=== PATIENT | male | born 1955 | race Caucasian/White ===

== ENCOUNTER → 2022-10-25 | Outpatient (REF) | payer MEDICARE, MEDICAID, SELFPAY ==
[2022-10-25 09:33] LABS: Absolute Lymphocyte Count 2.12 X10^3/uL (0.83-4.51); Absolute Neutrophil Count 7.6 X10^3/uL (2.0-7.7); Basophil# 0.04 X10^3/uL; Basophil% 0.4 % (0-1); Eosinophil# 0.43 X10^3/uL; Eosinophils% 3.9 % (0-5); Hemoglobin 15.9 g/dL (13.0-16.5); Lymphocyte # 2.12 X10^3/ul (0.83-4.51); Lymphocyte % 19.3 % (19-41); Mean Corp Hgb Conc 32.4 g/dL (32-36); Mean Corpuscular Hgb 31.2 pg (27.0-32.0); Mean Corpuscular Volume 96.1 fL (80-94); Mean Platelet Vol. 10.7 fl (6.2-12.0); Monocyte# 0.77 X10^3/uL; NRBC Flagged by Analyzer 0 % (0-5); Neutrophil # 7.56 X10^3/uL (2.7-7.7); Neutrophil % 68.8 % (47-70); Platelet Count 202 K/mm3 (150-450); RBC Distribution Width CV 13.2 % (11.6-14.6); RBC Distribution Width SD 47.1 fl (35.1-43.9)
== END ==
LOC: OLS.SWAL 05:00
PROVIDERS: Visit Provider Internal Medicine
DX: F20.2 Catatonic schizophrenia (principal)
CPT/HCPCS: 36415; 85025

== ENCOUNTER → 2022-11-08 | Outpatient (REF) | payer MEDICARE, MEDICAID, SELFPAY ==
[2022-11-08 09:56] LABS: Vitamin B12 598 pg/mL (211-911); Vitamin D,25 Hydroxy 65.9 ng/mL
[2022-11-08 09:59] LABS: Absolute Lymphocyte Count 1.41 X10^3/uL (0.83-4.51); Absolute Neutrophil Count 5.2 X10^3/uL (2.0-7.7); Basophil# 0.03 X10^3/uL; Basophil% 0.4 % (0-1); Eosinophil# 0.24 X10^3/uL; Eosinophils% 3.2 % (0-5); Hematocrit 40.5 % (40-54); Hemoglobin 13.4 g/dL (13.0-16.5); Lymphocyte # 1.41 X10^3/ul (0.83-4.51); Lymphocyte % 18.7 % (19-41); Mean Corp Hgb Conc 33.1 g/dL (32-36); Mean Corpuscular Hgb 31.8 pg (27.0-32.0); Mean Corpuscular Volume 96.2 fL (80-94); Mean Platelet Vol. 10.5 fl (6.2-12.0); Monocyte# 0.59 X10^3/uL; Monocyte% 7.8 % (0-10); NRBC Flagged by Analyzer 0 % (0-5); Neutrophil % 68.8 % (47-70); Platelet Count 183 K/mm3 (150-450); Red Blood Count 4.21 M/mm3 (4.6-6.2); White Blood Count 7.6 K/mm3 (4.4-11.0)
[2022-11-08 10:07] LABS: AST(SGOT) 17 U/L (15-37); Alanine Aminotransfer ALT/SGPT 47 U/L (16-61); Albumin, Serum 3.2 g/dL (3.2-5.0); Alkaline Phosphatase 73 U/L (45-117); Anion Gap 8 (5-15); BUN 19 mg/dL (7-18); BUN/Creat Ratio 17.9 RATIO (10-20); Calcium,Total 8.8 mg/dL (8.5-10.1); Chloride 107 mmol/L (98-107); Cholesterol 143 mg/dL (200); Creatinine, Serum 1.06 mg/dL (0.70-1.30); EST Glomerular Filtration Rate 74 mL/min (>60); Est Glom Filt Rate - Afr Amer 90 mL/min (>60); Globulin 3.2 g/dL (2.2-4.2); Glucose 108 mg/dL (74-106); High Density Lipoprotein 32 mg/dL; Magnesium 2.3 mg/dL (1.6-2.6); Protein, Total 6.4 g/dL (6.4-8.2); Sodium Level 140 mmol/L (136-145); Thyroid Stim Hormone (TSH) 3.45 uIU/mL (0.358-3.74); Triglycerides 293 mg/dL; Uric Acid 6.4 mg/dL (3.5-7.2); Very Low Density Lipoprotein 59 mg/dL (5-40)
[2022-11-08 10:18] LABS: Hemoglobin A1c 6.1 % (3.8-5.6)
== END ==
LOC: OLS.SWAL 05:00
PROVIDERS: Visit Provider Internal Medicine
DX: E55.9 Vitamin D deficiency, unspecified (principal); Z79.899 Other long term (current) drug therapy
CPT/HCPCS: 36415; 80053; 80061; 82306; 82607; 83036; 83735; 84443; 84550; 85025

== ENCOUNTER → 2022-11-24 | Outpatient (REF) | payer MEDICARE, MEDICAID, SELFPAY ==
[2022-11-24 08:51] LABS: Hematocrit 42.1 % (40-54); Mean Corp Hgb Conc 33.3 g/dL (32-36); Mean Corpuscular Hgb 31.5 pg (27.0-32.0); Mean Corpuscular Volume 94.8 fL (80-94); Mean Platelet Vol. 10.9 fl (6.2-12.0); Platelet Count 190 K/mm3 (150-450); RBC Distribution Width CV 13.2 % (11.6-14.6); RBC Distribution Width SD 45.8 fl (35.1-43.9); Red Blood Count 4.44 M/mm3 (4.6-6.2); White Blood Count 8.2 K/mm3 (4.4-11.0)
== END ==
LOC: OLS.SWAL 05:00
PROVIDERS: Visit Provider Internal Medicine
DX: Z79.899 Other long term (current) drug therapy (principal)
CPT/HCPCS: 36415; 85027

== ENCOUNTER → 2022-12-01 | Outpatient (REF) | payer MEDICARE, MEDICAID, SELFPAY ==
[2022-12-01 09:37] LABS: Absolute Lymphocyte Count 1.59 X10^3/uL (0.83-4.51); Absolute Neutrophil Count 5.2 X10^3/uL (2.0-7.7); Basophil# 0.03 X10^3/uL; Basophil% 0.4 % (0-1); Eosinophil# 0.14 X10^3/uL; Eosinophils% 1.9 % (0-5); Hematocrit 40.7 % (40-54); Hemoglobin 13.4 g/dL (13.0-16.5); Lymphocyte # 1.59 X10^3/ul (0.83-4.51); Lymphocyte % 21.2 % (19-41); Mean Corp Hgb Conc 32.9 g/dL (32-36); Mean Corpuscular Hgb 31.8 pg (27.0-32.0); Mean Corpuscular Volume 96.4 fL (80-94); Monocyte# 0.48 X10^3/uL; Monocyte% 6.4 % (0-10); NRBC Flagged by Analyzer 0 % (0-5); Neutrophil # 5.17 X10^3/uL (2.7-7.7); POSITIVE COUNT YES; RBC Distribution Width CV 13.4 % (11.6-14.6); RBC Distribution Width SD 47.2 fl (35.1-43.9); Red Blood Count 4.22 M/mm3 (4.6-6.2); White Blood Count 7.5 K/mm3 (4.4-11.0)
[2022-12-01 09:53] LABS: Differential Indicated SCAN CRITERIA MET
[2022-12-01 10:15] LABS: Platelet Estimate SLT DEC (ADEQ)
== END ==
LOC: OLS.SWAL 05:00
PROVIDERS: Visit Provider Internal Medicine
DX: Z79.899 Other long term (current) drug therapy (principal)
CPT/HCPCS: 36415; 85025

== ENCOUNTER → 2022-12-29 | Outpatient (REF) | payer MEDICARE, MEDICAID, SELFPAY ==
[2022-12-29 06:50] LABS: Absolute Neutrophil Count 4.6 X10^3/uL (2.0-7.7); Basophil# 0.06 X10^3/uL; Basophil% 0.8 % (0-1); Eosinophil# 0.18 X10^3/uL; Eosinophils% 2.3 % (0-5); Hematocrit 44.5 % (40-54); Hemoglobin 14.4 g/dL (13.0-16.5); Lymphocyte % 29.3 % (19-41); Mean Corp Hgb Conc 32.4 g/dL (32-36); Mean Corpuscular Hgb 31.6 pg (27.0-32.0); Mean Corpuscular Volume 97.8 fL (80-94); Mean Platelet Vol. 10.7 fl (6.2-12.0); Monocyte% 7.6 % (0-10); NRBC Flagged by Analyzer 0 % (0-5); Neutrophil # 4.64 X10^3/uL (2.7-7.7); Platelet Count 205 K/mm3 (150-450); RBC Distribution Width CV 13.6 % (11.6-14.6); RBC Distribution Width SD 48.3 fl (35.1-43.9); Red Blood Count 4.55 M/mm3 (4.6-6.2); White Blood Count 7.9 K/mm3 (4.4-11.0)
== END ==
LOC: OLS.SWAL 05:00
PROVIDERS: Visit Provider Internal Medicine
DX: Z79.899 Other long term (current) drug therapy (principal)
CPT/HCPCS: 36415; 85025

== ENCOUNTER → 2023-01-26 | Outpatient (REF) | payer MEDICARE, MEDICAID, SELFPAY ==
[2023-01-26 08:33] LABS: Absolute Lymphocyte Count 1.27 X10^3/uL (0.83-4.51); Basophil# 0.03 X10^3/uL; Basophil% 0.4 % (0-1); Eosinophil# 0.15 X10^3/uL; Eosinophils% 2.1 % (0-5); Hemoglobin 13.7 g/dL (13.0-16.5); Lymphocyte # 1.27 X10^3/ul (0.83-4.51); Lymphocyte % 18.1 % (19-41); Mean Corp Hgb Conc 33.4 g/dL (32-36); Mean Corpuscular Hgb 31.9 pg (27.0-32.0); Mean Corpuscular Volume 95.3 fL (80-94); Mean Platelet Vol. 10.5 fl (6.2-12.0); Monocyte# 0.55 X10^3/uL; Monocyte% 7.8 % (0-10); NRBC Flagged by Analyzer 0 % (0-5); Neutrophil # 4.96 X10^3/uL (2.7-7.7); Neutrophil % 70.6 % (47-70); Platelet Count 173 K/mm3 (150-450); RBC Distribution Width CV 13.6 % (11.6-14.6); RBC Distribution Width SD 47.1 fl (35.1-43.9)
== END ==
LOC: OLS.SWAL 05:00
PROVIDERS: Visit Provider Internal Medicine
DX: Z79.899 Other long term (current) drug therapy (principal)
CPT/HCPCS: 36415; 85025

== ENCOUNTER → 2023-02-23 | Outpatient (REF) | payer MEDICARE, MEDICAID, SELFPAY ==
[2023-02-23 07:40] LABS: Absolute Lymphocyte Count 1.86 X10^3/uL (0.83-4.51); Absolute Neutrophil Count 4.5 X10^3/uL (2.0-7.7); Basophil# 0.05 X10^3/uL; Basophil% 0.7 % (0-1); Eosinophil# 0.23 X10^3/uL; Eosinophils% 3.2 % (0-5); Hematocrit 45.2 % (40-54); Hemoglobin 14.6 g/dL (13.0-16.5); Lymphocyte # 1.86 X10^3/ul (0.83-4.51); Lymphocyte % 25.6 % (19-41); Mean Corp Hgb Conc 32.3 g/dL (32-36); Mean Corpuscular Hgb 31.6 pg (27.0-32.0); Mean Corpuscular Volume 97.8 fL (80-94); Mean Platelet Vol. 10.6 fl (6.2-12.0); Monocyte# 0.56 X10^3/uL; Monocyte% 7.7 % (0-10); NRBC Flagged by Analyzer 0 % (0-5); Neutrophil # 4.49 X10^3/uL (2.7-7.7); Neutrophil % 61.7 % (47-70); Platelet Count 186 K/mm3 (150-450); RBC Distribution Width CV 12.9 % (11.6-14.6); RBC Distribution Width SD 45.8 fl (35.1-43.9); Red Blood Count 4.62 M/mm3 (4.6-6.2); White Blood Count 7.3 K/mm3 (4.4-11.0)
[2023-02-23 07:54] LABS: Hemoglobin A1c 6.1 % (3.8-5.6)
== END ==
LOC: OLS.SWAL 05:00
PROVIDERS: Visit Provider Internal Medicine
DX: R73.03 Prediabetes (principal); Z79.899 Other long term (current) drug therapy
CPT/HCPCS: 36415; 83036; 85025

== ENCOUNTER → 2023-03-23 | Outpatient (REF) | payer MEDICARE, MEDICAID, SELFPAY ==
[2023-03-23 07:13] LABS: Absolute Lymphocyte Count 1.85 X10^3/uL (0.83-4.51); Absolute Neutrophil Count 4.2 X10^3/uL (2.0-7.7); Basophil# 0.05 X10^3/uL; Basophil% 0.7 % (0-1); Eosinophil# 0.18 X10^3/uL; Eosinophils% 2.6 % (0-5); Hematocrit 42.1 % (40-54); Hemoglobin 14.2 g/dL (13.0-16.5); Lymphocyte # 1.85 X10^3/ul (0.83-4.51); Lymphocyte % 26.4 % (19-41); Mean Corp Hgb Conc 33.7 g/dL (32-36); Mean Corpuscular Hgb 32.1 pg (27.0-32.0); Mean Corpuscular Volume 95.2 fL (80-94); Mean Platelet Vol. 10.7 fl (6.2-12.0); Monocyte# 0.64 X10^3/uL; Monocyte% 9.1 % (0-10); NRBC Flagged by Analyzer 0 % (0-5); Neutrophil # 4.21 X10^3/uL (2.7-7.7); Neutrophil % 60.1 % (47-70); Platelet Count 180 K/mm3 (150-450); RBC Distribution Width CV 12.8 % (11.6-14.6); RBC Distribution Width SD 44.1 fl (35.1-43.9); Red Blood Count 4.42 M/mm3 (4.6-6.2)
== END ==
LOC: OLS.SWAL 05:00
PROVIDERS: Visit Provider Internal Medicine
DX: F20.2 Catatonic schizophrenia (principal); Z79.899 Other long term (current) drug therapy
CPT/HCPCS: 36415; 85025

== ENCOUNTER → 2023-04-20 | Outpatient (REF) | payer MEDICARE, MEDICAID, SELFPAY ==
[2023-04-20 10:09] LABS: Absolute Lymphocyte Count 1.75 X10^3/uL (0.83-4.51); Absolute Neutrophil Count 4.1 X10^3/uL (2.0-7.7); Basophil# 0.03 X10^3/uL; Basophil% 0.4 % (0-1); Eosinophil# 0.23 X10^3/uL; Eosinophils% 3.4 % (0-5); Hematocrit 43.4 % (40-54); Hemoglobin 14.9 g/dL (13.0-16.5); Lymphocyte # 1.75 X10^3/ul (0.83-4.51); Lymphocyte % 25.9 % (19-41); Mean Corp Hgb Conc 34.3 g/dL (32-36); Mean Corpuscular Hgb 32.5 pg (27.0-32.0); Mean Corpuscular Volume 94.8 fL (80-94); Mean Platelet Vol. 10.8 fl (6.2-12.0); Monocyte# 0.59 X10^3/uL; Monocyte% 8.7 % (0-10); NRBC Flagged by Analyzer 0 % (0-5); Neutrophil # 4.09 X10^3/uL (2.7-7.7); Neutrophil % 60.7 % (47-70); Platelet Count 174 K/mm3 (150-450); Red Blood Count 4.58 M/mm3 (4.6-6.2); White Blood Count 6.8 K/mm3 (4.4-11.0)
== END ==
LOC: OLS.SWAL 05:00
PROVIDERS: Visit Provider Internal Medicine
DX: Z79.899 Other long term (current) drug therapy (principal)
CPT/HCPCS: 36415; 85025

== ENCOUNTER → 2023-05-18 | Outpatient (REF) | payer MEDICARE, MEDICAID, SELFPAY ==
[2023-05-18 09:56] LABS: Absolute Neutrophil Count 4.4 X10^3/uL (2.0-7.7); Basophil# 0.05 X10^3/uL; Basophil% 0.7 % (0-1); Eosinophil# 0.18 X10^3/uL; Eosinophils% 2.5 % (0-5); Hematocrit 44.6 % (40-54); Hemoglobin 14.8 g/dL (13.0-16.5); Lymphocyte % 26.3 % (19-41); Mean Corp Hgb Conc 33.2 g/dL (32-36); Mean Corpuscular Hgb 31.8 pg (27.0-32.0); Mean Corpuscular Volume 95.7 fL (80-94); Mean Platelet Vol. 10.8 fl (6.2-12.0); Monocyte# 0.64 X10^3/uL; Monocyte% 8.9 % (0-10); NRBC Flagged by Analyzer 0 % (0-5); Neutrophil # 4.36 X10^3/uL (2.7-7.7); Neutrophil % 60.4 % (47-70); Platelet Count 165 K/mm3 (150-450); RBC Distribution Width CV 13.2 % (11.6-14.6); RBC Distribution Width SD 46.1 fl (35.1-43.9); Red Blood Count 4.66 M/mm3 (4.6-6.2); White Blood Count 7.2 K/mm3 (4.4-11.0)
== END ==
LOC: OLS.SWAL 05:00
PROVIDERS: Visit Provider Internal Medicine
DX: Z79.899 Other long term (current) drug therapy (principal)
CPT/HCPCS: 36415; 85025

== ENCOUNTER → 2023-06-15 | Outpatient (REF) | payer MEDICARE, MEDICAID, SELFPAY ==
[2023-06-15 09:34] LABS: Absolute Lymphocyte Count 1.77 X10^3/uL (0.83-4.51); Absolute Neutrophil Count 5.3 X10^3/uL (2.0-7.7); Basophil# 0.04 X10^3/uL; Basophil% 0.5 % (0-1); Eosinophil# 0.12 X10^3/uL; Eosinophils% 1.5 % (0-5); Hematocrit 47.2 % (40-54); Hemoglobin 15.7 g/dL (13.0-16.5); Lymphocyte # 1.77 X10^3/ul (0.83-4.51); Lymphocyte % 22.2 % (19-41); Mean Corp Hgb Conc 33.3 g/dL (32-36); Mean Corpuscular Hgb 31.4 pg (27.0-32.0); Mean Corpuscular Volume 94.4 fL (80-94); Mean Platelet Vol. 10.9 fl (6.2-12.0); Monocyte# 0.64 X10^3/uL; NRBC Flagged by Analyzer 0 % (0-5); Neutrophil # 5.32 X10^3/uL (2.7-7.7); Neutrophil % 66.8 % (47-70); Platelet Count 184 K/mm3 (150-450); RBC Distribution Width SD 44.4 fl (35.1-43.9)
== END ==
LOC: OLS.SWAL 04:00
PROVIDERS: PCP Internal Medicine; Referring Provider Internal Medicine; Visit Provider Internal Medicine
DX: Z79.899 Other long term (current) drug therapy (principal)
CPT/HCPCS: 36415; 85025

== ENCOUNTER → 2023-06-19 | Outpatient (REF) | payer MEDICARE, MEDICAID, SELFPAY ==
[2023-06-20 08:30] LABS: Bacteria 0 SEEN /hpf (None Seen); Mucous, Urine 0 SEEN /hpf (<or=2+); Red Blood Cells-Urine 0 SEEN /hpf (0-5); Squamous Epithelial Cells - UA 0 SEEN /hpf (0-5); White Blood Cells 0 SEEN /hpf (0-5)
[2023-06-20 09:09] LABS: Color, Urine Yellow (Yellow); Glucose, Dipstick Normal (Normal); Ketone-Dipstick Negative (Negative); Leukocyte Esterase-Dipstick Negative /ul (Negative); Nitrite-Dipstick Negative (Negative); Occult Blood-Urine Negative /ul (Negative); Protein-Dipstick 15 mg/dl (Negative); Urine Bilirubin Dipstick Negative (Negative); Urine Clarity Clear (Clear); Urine Urobilinogen Normal (Normal)
== END ==
LOC: OLS.SWAL 12:00
PROVIDERS: PCP Internal Medicine; Visit Provider Internal Medicine
DX: I10 Essential (primary) hypertension (principal); E78.5 Hyperlipidemia, unspecified; Z79.899 Other long term (current) drug therapy
CPT/HCPCS: 81001; 87086

== ENCOUNTER → 2023-06-19 | Outpatient (REF) | payer MEDICARE, MEDICAID, SELFPAY ==
[2023-06-19 11:04] LABS: Absolute Lymphocyte Count 1.02 X10^3/uL (0.83-4.51); Absolute Neutrophil Count 4.5 X10^3/uL (2.0-7.7); Basophil# 0.02 X10^3/uL; Basophil% 0.3 % (0-1); Eosinophil# 0.11 X10^3/uL; Eosinophils% 1.8 % (0-5); Hematocrit 41.4 % (40-54); Hemoglobin 13.8 g/dL (13.0-16.5); Lymphocyte # 1.02 X10^3/ul (0.83-4.51); Mean Corp Hgb Conc 33.3 g/dL (32-36); Mean Corpuscular Hgb 31.8 pg (27.0-32.0); Mean Corpuscular Volume 95.4 fL (80-94); Mean Platelet Vol. 11.1 fl (6.2-12.0); Monocyte# 0.31 X10^3/uL; Monocyte% 5.2 % (0-10); NRBC Flagged by Analyzer 0 % (0-5); Neutrophil # 4.52 X10^3/uL (2.7-7.7); Neutrophil % 75.2 % (47-70); Platelet Count 168 K/mm3 (150-450); RBC Distribution Width CV 13.2 % (11.6-14.6); RBC Distribution Width SD 46.4 fl (35.1-43.9); Red Blood Count 4.34 M/mm3 (4.6-6.2)
[2023-06-19 11:22] LABS: AST(SGOT) 38 U/L (15-37); Alanine Aminotransfer ALT/SGPT 74 U/L (16-61); Albumin, Serum 3.3 g/dL (3.2-5.0); Alkaline Phosphatase 81 U/L (45-117); Anion Gap 9 (5-15); BUN 32 mg/dL (7-18); BUN/Creat Ratio 20.3 RATIO (10-20); Calcium,Total 8.7 mg/dL (8.5-10.1); Chloride 107 mmol/L (98-107); Creatinine, Serum 1.58 mg/dL (0.70-1.30); EST Glomerular Filtration Rate 47 mL/min (>60); Est Glom Filt Rate - Afr Amer 56 mL/min (>60); Globulin 3.2 g/dL (2.2-4.2); Glucose 246 mg/dL (74-106); Protein, Total 6.5 g/dL (6.4-8.2); Sodium Level 138 mmol/L (136-145)
== END ==
LOC: OLS.SWAL 05:00
PROVIDERS: PCP Internal Medicine; Visit Provider Internal Medicine
DX: I10 Essential (primary) hypertension (principal); E78.5 Hyperlipidemia, unspecified
CPT/HCPCS: 36415; 80053; 85025

== ENCOUNTER → 2023-06-26 | Outpatient (REF) | payer MEDICARE, MEDICAID, SELFPAY ==
[2023-06-26 08:56] LABS: Thyroid Stim Hormone (TSH) 3.87 uIU/mL (0.358-3.74)
[2023-06-26 10:42] LABS: Hemoglobin A1c 6.6 % (3.8-5.6)
== END ==
LOC: OLS.SWAL 04:00
PROVIDERS: PCP Internal Medicine; Referring Provider Internal Medicine; Visit Provider Internal Medicine
DX: E11.9 Type 2 diabetes mellitus without complications (principal); E03.9 Hypothyroidism, unspecified
CPT/HCPCS: 36415; 83036; 84443

== ENCOUNTER → 2023-06-27 | Outpatient (REF) | payer MEDICARE, MEDICAID, SELFPAY ==
[2023-06-27 10:19] LABS: Hemoglobin A1c 6.5 % (3.8-5.6)
== END ==
LOC: OLS.SWAL 05:00
PROVIDERS: PCP Internal Medicine; Visit Provider Internal Medicine
DX: E11.9 Type 2 diabetes mellitus without complications (principal)
CPT/HCPCS: 36415; 83036; 84443

== ENCOUNTER → 2023-07-13 | Outpatient (REF) | payer MEDICARE, MEDICAID, SELFPAY ==
[2023-07-13 09:29] LABS: Absolute Lymphocyte Count 1.47 X10^3/uL (0.83-4.51); Basophil# 0.04 X10^3/uL; Basophil% 0.5 % (0-1); Eosinophil# 0.17 X10^3/uL; Eosinophils% 2.3 % (0-5); Hematocrit 40.7 % (40-54); Hemoglobin 14.2 g/dL (13.0-16.5); Lymphocyte # 1.47 X10^3/ul (0.83-4.51); Lymphocyte % 19.9 % (19-41); Mean Corp Hgb Conc 34.9 g/dL (32-36); Mean Corpuscular Hgb 32.7 pg (27.0-32.0); Mean Corpuscular Volume 93.8 fL (80-94); Mean Platelet Vol. 10.8 fl (6.2-12.0); Monocyte# 0.59 X10^3/uL; NRBC Flagged by Analyzer 0 % (0-5); Neutrophil # 5.04 X10^3/uL (2.7-7.7); Neutrophil % 68.1 % (47-70); Platelet Count 157 K/mm3 (150-450); RBC Distribution Width CV 13.4 % (11.6-14.6); RBC Distribution Width SD 45.5 fl (35.1-43.9); Red Blood Count 4.34 M/mm3 (4.6-6.2); White Blood Count 7.4 K/mm3 (4.4-11.0)
== END ==
LOC: OLS.SWAL 05:00
PROVIDERS: PCP Internal Medicine; Visit Provider Internal Medicine
DX: Z79.899 Other long term (current) drug therapy (principal)
CPT/HCPCS: 36415; 85025

== ENCOUNTER → 2023-08-10 | Outpatient (REF) | payer MEDICARE, MEDICAID, SELFPAY ==
[2023-08-10 09:58] LABS: Absolute Lymphocyte Count 2.13 X10^3/uL (0.83-4.51); Absolute Neutrophil Count 3.9 X10^3/uL (2.0-7.7); Basophil# 0.05 X10^3/uL; Basophil% 0.7 % (0-1); Eosinophil# 0.19 X10^3/uL; Eosinophils% 2.8 % (0-5); Hematocrit 40.3 % (40-54); Hemoglobin 14.2 g/dL (13.0-16.5); Lymphocyte # 2.13 X10^3/ul (0.83-4.51); Mean Corp Hgb Conc 35.2 g/dL (32-36); Mean Corpuscular Hgb 33.8 pg (27.0-32.0); Mean Platelet Vol. 10.9 fl (6.2-12.0); Monocyte# 0.54 X10^3/uL; Monocyte% 7.9 % (0-10); NRBC Flagged by Analyzer 0 % (0-5); Neutrophil # 3.89 X10^3/uL (2.7-7.7); Neutrophil % 56.7 % (47-70); POSITIVE COUNT YES; Platelet Count 143 K/mm3 (150-450); RBC Distribution Width CV 13.2 % (11.6-14.6); RBC Distribution Width SD 46.2 fl (35.1-43.9); White Blood Count 6.9 K/mm3 (4.4-11.0)
== END ==
LOC: OLS.SWAL 05:00
PROVIDERS: PCP Internal Medicine; Visit Provider Internal Medicine
DX: Z79.899 Other long term (current) drug therapy (principal)
CPT/HCPCS: 36415; 85025

== ENCOUNTER → 2023-08-21 | Outpatient (REF) | payer MEDICARE, MEDICAID, SELFPAY ==
[2023-08-21 08:38] LABS: Anion Gap 7 (5-15); BUN 17 mg/dL (7-18); BUN/Creat Ratio 15.5 RATIO (10-20); Chloride 108 mmol/L (98-107); EST Glomerular Filtration Rate 71 mL/min (>60); Est Glom Filt Rate - Afr Amer 86 mL/min (>60); Glucose 132 mg/dL (74-106); Potassium 4.1 mmol/L (3.5-5.1); Sodium Level 142 mmol/L (136-145)
== END ==
LOC: OLS.SWAL 05:00
PROVIDERS: PCP Internal Medicine; Visit Provider Internal Medicine
DX: I10 Essential (primary) hypertension (principal)
CPT/HCPCS: 36415; 80048

== ENCOUNTER → 2023-09-07 | Outpatient (REF) | payer MEDICARE, MEDICAID, SELFPAY ==
[2023-09-07 09:50] LABS: Hematocrit 44.5 % (40-54); Hemoglobin 14.4 g/dL (13.0-16.5); Mean Corp Hgb Conc 32.4 g/dL (32-36); Mean Corpuscular Hgb 31.6 pg (27.0-32.0); Mean Corpuscular Volume 97.8 fL (80-94); Mean Platelet Vol. 10.3 fl (6.2-12.0); POSITIVE COUNT YES; POSITIVE MORPHOLOGY YES; Platelet Count 195 K/mm3 (150-450); RBC Distribution Width CV 13.2 % (11.6-14.6); RBC Distribution Width SD 47.1 fl (35.1-43.9); Red Blood Count 4.55 M/mm3 (4.6-6.2); White Blood Count 7.9 K/mm3 (4.4-11.0)
[2023-09-07 09:52] LABS: Differential Indicated MANUAL DIFF
[2023-09-07 10:49] LABS: Eosinophil 2 % (0-5); Lymphocyte 32 % (19-41); Monocyte 10 % (0-10); Neutrophil-Segmented 56 % (47-70); Platelet Estimate ADEQUATE (ADEQ); Red Cell Morphology NORM C+C NORMAL (NORM C&C); Total Cells Counted 100 (MANUAL DIFF)
[2023-09-07 10:50] LABS: Absolute Neutrophil Count 4.4 X10^3/uL (2.0-7.7)
[2023-09-11 08:24] LABS: Pathologist Review Reviewed
== END ==
LOC: OLS.SWAL 05:00
PROVIDERS: PCP Internal Medicine; Visit Provider Internal Medicine
DX: Z79.899 Other long term (current) drug therapy (principal)
CPT/HCPCS: 36415; 85025

== ENCOUNTER → 2023-09-11 | Outpatient (REF) | payer MEDICARE, MEDICAID, SELFPAY ==
[2023-09-11 09:34] LABS: ALB/GLOB Ratio 0.8 RATIO (0.9-2.4); AST(SGOT) 45 U/L (15-37); Alanine Aminotransfer ALT/SGPT 103 U/L (16-61); Albumin, Serum 3.2 g/dL (3.2-5.0); Alkaline Phosphatase 86 U/L (45-117); Anion Gap 7 (5-15); BUN 17 mg/dL (7-18); BUN/Creat Ratio 14.9 RATIO (10-20); Calcium,Total 8.8 mg/dL (8.5-10.1); Chloride 107 mmol/L (98-107); Creatinine, Serum 1.14 mg/dL (0.70-1.30); EST Glomerular Filtration Rate 68 mL/min (>60); Est Glom Filt Rate - Afr Amer 82 mL/min (>60); Globulin 4.1 g/dL (2.2-4.2); Glucose 128 mg/dL (74-106); Potassium 4.4 mmol/L (3.5-5.1); Protein, Total 7.3 g/dL (6.4-8.2); Sodium Level 138 mmol/L (136-145)
== END ==
LOC: OLS.SWAL 07:24
PROVIDERS: PCP Internal Medicine; Visit Provider Internal Medicine
DX: I10 Essential (primary) hypertension (principal); E78.5 Hyperlipidemia, unspecified
CPT/HCPCS: 36415; 80053

== ENCOUNTER → 2023-10-02 | Outpatient (CLI) | payer MEDICARE, MEDICAID, SELFPAY ==
--- NOTE | 2023-10-02 12:43 | CT_ITS ---
STUDY: CT ABDOMEN AND PELVIS WITHOUT CONTRAST REASON FOR EXAM: Male, 68 years old. ABD PAIN AND WT LOSS RADIATION DOSAGE (If Supplied By Facility): CTDIvol = ( 15.13 ) mGy, DLP = ( 843.06 ) mGycm TECHNIQUE: Transaxial images were obtained from the dome of the diaphragm to the symphysis pubis with oral contrast, and without intravenous contrast. Sagittal and coronal images were reconstructed. Individualized dose optimization techniques were used for this CT. COMPARISON: None. FINDINGS: The visualized lung bases are unremarkable. The visualized portions of the heart are within normal limits. There is decreased attenuation of the liver consistent with steatosis. Normal gallbladder and extrahepatic biliary system. Normal spleen. Normal pancreas. Normal bilateral adrenal glands. No acute abnormalities of the kidneys. Bilateral perinephric stranding. No stones. No hydronephrosis. 4.2 cm probable cyst of the right upper pole, recommend confirmation with ultrasound Normal visualized stomach. Normal small intestine. Normal colon. The appendix is visualized and appears normal. There is diffuse atherosclerotic calcification of the abdominal aorta, without a demonstrated aneurysm. Normal inferior vena cava. Normal retroperitoneum. Normal urinary bladder. Normal abdominal wall. Normal osseous structures. CT/Abdomen/Pelvis without Cont IMPRESSION: No definite acute abnormality. Ultrasound recommended for confirmation of a probable right renal cyst. Electronically Signed: Chadd Paniagua MD at 22:59 EST ,
== END | disposition home or self-care (01) ==
LOC: CT 12:41
PROVIDERS: PCP Internal Medicine; Referring Provider Internal Medicine; Visit Provider Internal Medicine
DX: R10.9 Unspecified abdominal pain (principal); R63.4 Abnormal weight loss
CPT/HCPCS: 74176

== ENCOUNTER → 2023-10-05 | Outpatient (REF) | payer MEDICARE, MEDICAID, SELFPAY ==
[2023-10-05 08:25] LABS: Absolute Lymphocyte Count 1.38 X10^3/uL (0.83-4.51); Absolute Neutrophil Count 5.1 X10^3/uL (2.0-7.7); Basophil# 0.05 X10^3/uL; Basophil% 0.7 % (0-1); Eosinophil# 0.22 X10^3/uL; Hematocrit 44.1 % (40-54); Hemoglobin 14.5 g/dL (13.0-16.5); Lymphocyte # 1.38 X10^3/ul (0.83-4.51); Lymphocyte % 18.7 % (19-41); Mean Corp Hgb Conc 32.9 g/dL (32-36); Mean Corpuscular Hgb 32.1 pg (27.0-32.0); Mean Corpuscular Volume 97.6 fL (80-94); Mean Platelet Vol. 10.8 fl (6.2-12.0); Monocyte# 0.55 X10^3/uL; Monocyte% 7.4 % (0-10); NRBC Flagged by Analyzer 0 % (0-5); Neutrophil # 5.11 X10^3/uL (2.7-7.7); Neutrophil % 69.1 % (47-70); Platelet Count 159 K/mm3 (150-450); RBC Distribution Width CV 13.7 % (11.6-14.6); RBC Distribution Width SD 49.1 fl (35.1-43.9); Red Blood Count 4.52 M/mm3 (4.6-6.2); White Blood Count 7.4 K/mm3 (4.4-11.0)
== END ==
LOC: OLS.SWAL 05:00
PROVIDERS: PCP Internal Medicine; Visit Provider Internal Medicine
DX: Z79.899 Other long term (current) drug therapy (principal)
CPT/HCPCS: 36415; 85025

== ENCOUNTER → 2023-11-02 | Outpatient (REF) | payer MEDICARE, MEDICAID, SELFPAY ==
--- OUTSIDE RECORDS SUMMARY | 2023-11-02 03:49 | XMS RPT_ITS | CCD ---
Author Name Unknown Address [address] [place] [address] Organization [facility] Care Team Providers Care Wildlife Biology Technician Name Role Phone ZMEILI Unavailable Unavailable Dy, Bertrnad Unavailable Unavailable Dy, Bertrand Unavailable Unavailable COURSONSARAH Unavailable Unavailable IMCA Unavailable Unavailable MAYANK, KEVIN Unavailable Unavailable MAYANK, KEVIN Unavailable Unavailable ESMER NIETO Unavailable Unavailable Esmer Nieto (Forensic Technician.Regional Environmental Manager) Primary Care Pr ovider Soo Montesinos Primary Care Provider [phone] Allergies Allergy Classification Reported Allergen(s) Allergy Type Date of Onset Reaction(s) Facility Penicillins (antibiotic) (1 source) Penicillins Drug Allergy 6 Other: See Comments [facility] (3 sources) Penicillins; Translations: [PENICILLINS] Propensity to adverse reactions (disorder) 6 Other: See Comments [facility] Rep[facility] Medications Completed/Discontinued Medications Medication Drug Class(es) Dates Sig (Normalized) Sig (Original) allopurinol 100 mg oral tablet (2 sources) Xanthine Oxidase Inhibitor Start: 02-01-2021 take 1 tablet by mouth once daily allopurinol (ZYLOPRIM) 100 mg tablet Take 1 tablet by mouth once daily. 0 02/01/2021 Active Problems Active Problems Problem Classification Problem Date Documented Da te Episodic/Chronic Cardiac dysrhythmias (3 sources) Paroxysmal ventricular tachycardia; Translations: [Ventricular tachycardia] 06-09-2016 Chronic Cardiac dysrhythmias (3 sources) Tachycardia; Translations: [Tachycardia, unspecified] 06-09-2016 Episodic Chronic obstructive pulmonary disease and bronchiectasis (3 sources) Chronic obstructive lung disease; Translations: [Chronic obstructive pulmonary disease, unspecified] 06-09-2016 Chronic Congestive heart failure; nonhypertensive (3 sources) Chronic congestive heart failure; Translations: [Heart failure, unspecified] 06-14-2016 Chronic Coronary atherosclerosis and other heart disease (5 sources) Coronary arteriosclerosis; Translations: [Coronary atherosclerosis] 06-09-2016 Chronic Disorders of lipid metabolism (3 sources) Hyperlipidemia; Translations: [Hyperlipidemia, unspecified] 06-09-2016 Chronic Essential hypertension (3 sources) Essential hypertension; Translations: [Essential (primary) hypertension] 06-09-2016 Chronic Nicolette-; endo-; and myocarditis; cardiomyopathy (except that caused by tuberculosis or sexually transmitted disease) (3 sources) Cardiomyopathy; Translations: [Cardiomyopathy, unspecified] 06-09-2016 Chronic Schizophrenia and other psychotic disorders (3 sources) Schizophrenia; Translations: [Schizophrenia, unspecified] 06-09-2016 Chronic Thyroid disorders (5 sources) Nontoxic multinodular goiter; Translations: [Acquired hypothyroidism] Onset: 02-26-2018 06-09-2016 Chronic Unclassified (1 source) Unknown / UNK(Unknown) Onset: 03-14-2018 Past or Other Problems Problem Classification Problem Date Documented Da te Episodic/Chronic Unclassified (1 source) CARD Follow Up Annual Onset: 03-14-2018 Results Test Name Value Interpretation Reference Range Facil ity Vital Signs Date Time Vital Sign Value Performing Clinician Faci lity 02-23-2021 11:04-0400 Body height 182.9 cm [employer] Work Phone: [facility] 02-23-2021 11:04-0400 Body weight 85.[address] [employer] Work Phone: [facility] 02-23-2021 11:04-0400 Diastolic blood pressure 80 mm[Hg] Kevin Mayank Work Phone: [facility] 02-23-2021 11:04-0400 Heart rate 80 /min Kevin Mayank Work Phone: [facility] 02-23-2021 11:04-0400 Respiratory rate 18 /min [facility] [employer] Work Phone: [facility] 02-23-2021 11:04-0400 SaO2% (BldA) [Mass fraction] 97 % Kevin [facility] [employer] Work Phone: [facility] 02-23-2021 11:04-0400 Systolic blood pressure 112 mm[Hg] Kevin Talley Work Phone: [facility] Encounters Encounter Date Encounter Type Care Provider Facility Start: 01-11-2022 Refill Kevin Talley MD Work Phone: [facility] Plan of Treatment Date Care Activity Detail Author Start: 11-06-2021 ADVANCE DIRECTIVE DISCUSSION ADVANCE DIRECTIVE DISCUSSION [facility] Start: 07-07-2021 Influenza vaccination [facility] Start: 12-19-2020 BP CONTROLLED (<130/80) BP CONTROLLE D (<130/80) [facility] Start: 07-07-2020 Influenza vaccination INFLUENZA (#1) [facility] Start: 2020 ADVANCE DIRECTIVE DISCUSSION ADVANCE DIRECTIVE DISCUSSION [facility] Start: 2020 PNEUMOVAX AGE 65 AND OVER WITH 5YR LOOKBACK (#1) PNEUMOVAX AGE 65 AND OVER WITH 5YR LOOKBACK (#1) [facility] Start: 09-01-2018 DIABETES SCREEN DIABETES SCREEN [facility] Start: 2010 PROSTATE CANCER SCRE ENING DISCUSSION PROSTATE CANCER SCREENING DISCUSSION [facility] Start: 2005 Screening for malign ant neoplasm of colon [facility] Start: 2005 SHINGRIX VACCINE (1 of 2) SHINGRIX V ACCINE (1 of 2) [facility] Start: 2000 COLOGUARD (FIT-DNA) COLOGUARD (FIT-D NA) [facility] Start: 2000 Colonoscopy COLONOSCOPY [facility] Start: 2000 COLORECTAL CANCER SCREENING COLORECTAL CANCER SCREENING [facility] Start: [address] COLONOGRAPHY [facility] Start: 2000 FECAL OCCULT BLOOD FECAL OCCULT BLOO D [facility] Start: 2000 SIGMOIDOSCOPY SIGMOIDOSCOPY [facility] Start: 1990 LIPID SCREEN LIPID SCREEN [facility] Start: 1974 Urine microalbumin profile DTAP,TDAP ,TD (1 - Tdap) [facility] Start: 1973 ANNUAL PCP TEAM CASE MANAGEMENT MANAGER VENTURA DISEASE VISIT ANNUAL PCP TEAM CHRONIC DISEASE VISIT [facility] Start: 1973 BP CONTROLLED (<130/80) BP CONTROLLE D (<130/80) [facility] Start: 1973 Hepatitis B surface antibody level LDL CHOLESTEROL [facility] Start: 1973 HEPATITIS C SCREENING HEPATITIS C SC REENING [facility] Start: 1973 HIV SCREENING HIV SCREENING [facility] Start: 1973 SPIROMETRY SPIROMETRY [facility] Start: 1967 Adult depression scr eening assessment DEPRESSION SCREENING [facility] Start: 1960 COVID-19 VACCINE (1) COVID-19 VACCIN E (1) [facility] Start: 1955 ABDOMINAL AORTIC ANE URYSM SCREENING ABDOMINAL AORTIC ANEURYSM SCREENING [facility] Payers Date Payer Category Payer Medicare [id number] 2016 Medicare [id number] Medicare [id number] Private Health Insurance Social History Date Type Detail Facility Start: 12-19-2019 End: 02-23-2021 Tobacco smoking status NHIS Former smoker [facility] End: 11-06-2010 History of tobacco use Current smoker [facility] Start: 12-19-2019 End: 02-23-2021 Tobacco use and exposure Never used [facility] Start: 12-19-2019 End: 02-23-2021 Alcohol intake Current non-drinker of alcohol (finding) [facility] Start: 1955 Sex Assigned At Not on file [facility] Exposure to SARS-CoV -2 (event) Not sure [facility] Note 01-11-2022 Telephone Encounter - Nora Oneal LPN - 01/11/2022 10:52 AM EST Note Date & Type Note Facility 01-11-2022 Miscellaneous Notes Patient's request for medication is as follows: Pending Prescriptions Disp Refills LISINOPRIL 5 MG TABLET 90 tablet 3 Sig: TAKE 1 TABLET BY MOUTH DAILY IJEOMA: Yes CARVEDILOL 6.25 MG TABLET 180 tablet 3 Sig: TAKE 1 TABLET BY MOUTH TWICE A DAY WITH MEALS IJEOMA: Yes Last seen 02/23/2021. Follow up scheduled for 02/28/2022. Prescription(s) as above. Please process accordingly. Nora Oneal LPN documented in this encounter [facility] Progress note 02-23-2021 Note Date & Type Note Facility 02-23-2021 Note HNO ID: [id number] Author: Kevin Talley Service: ? 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 He is accompanied by his pillowcase folder. He comes today for a follow-up appointment. He denies chest pain, shortness of breath, orthopnea, cough, edema, palpitations, PND, lightheadedness or syncope. He has been doing well. He climbs 3 flights of stairs at his residential at least 3 times a day without any difficulty. He also rides his bike/scooter without any cardiac symptoms. At today's visit he is accompanied by his pillowcase folder. Patient denies any chest pain shortness of breath palpitations lightheadedness syncope orthopnea PND or leg edema. PAST MEDICAL HISTORY Diagnosis Date - Acquired hypothyroidism unspecified - Cardiomyopathy (HCC) - Chronic congestive heart failure (HCC) - Chronic obstructive lung disease (HCC) - Coronary arteriosclerosis - Essential hypertension - Hyperlipidemia - Hypokalemia - Paroxysmal ventricular tachycardia (HCC) - Schizophrenia (HCC) - Tachycardia PAST SURGICAL HISTORY Procedure Laterality Date - CATARACT EXTRACTION HX Bilateral - ECHO 12/25/2015 - STENT PLACEMENT 12/09/2011 Cardiac Stent; 90% lesion to the mid LAD FAMILY HISTORY Problem Relation Age of Onset - None Other - No Known Problems Mother - No Known Problems Father - No Known Problems Maternal Grandmother - No Known Problems Maternal Grandfather - No Known Problems Paternal Grandmother - No Known Problems Paternal Grandfather Social History Tobacco Use - Smoking status: Former Smoker Quit date: 11/06/2010 Years since quittin.3 - Smokeless tobacco: Never Used Vaping Use - Vaping Use: Never used Substance Use Topics - Alcohol use: No Comment: Non-drinker - Drug use: No Comment: No reported history Current Outpatient Medications Medication Sig - metFORMIN ER (GLUCOPHAGE XR) 500 mg 24 hr tablet Take 1 tablet by mouth once daily. - allopurinol (ZYLOPRIM) 100 mg tablet Take 1 tablet by mouth once daily. - carvedilol (COREG) 6.25 mg tablet Take 1 tablet by mouth twice daily with meals. - ARIPiprazole (ABILIFY) 20 mg tablet Take 20 mg by mouth once daily. - cholecalciferol (VITAMIN D-3) 2,000 unit tablet Take 2,000 Units by mouth once daily. - clopidogrel (PLAVIX) 75 mg tablet Take 75 mg by mouth once daily. - Levothyroxine 50 mcg cap Take 75 mcg by mouth once daily. - pantoprazole DR (PROTONIX) 40 mg tablet Take 20 mg by mouth once daily. - pravastatin (PRAVACHOL) 40 mg tablet Take 40 mg by mouth once daily. - Docusate Sodium 100 mg tab Take 100 mg by mouth once daily. - cloZAPine (CLOZARIL) 100 mg tablet Take 100 mg by mouth once daily. Takes 3 at night - MULTIVITAMIN ORAL Take 1 tablet by mouth once daily. - lisinopril (ZESTRIL, PRINIVIL) 5 mg tablet Take 1 tablet by mouth once daily. - THERAPY M 9 mg iron-400 mcg tablet (Patient not taking: Reported on 02/23/2021 ) No current facility-administered medications for this visit. ALLERGIES Allergen Reactions - Penicillins Other: See Comments Review of Systems: GENERAL: Negative for: Weight loss or gain, Fever or Chills, Weakness and Sleep difficulties. HEENT: Negative for: Headache, Impaired Vision, Glasses, Hearing Impairment, Ringing in Ears, Nosebleeds, Poor dental care, Bleeding Gums, Dentures NECK: Negative for: Swelling, Pain, Stiffness RESPIRATORY: Negative for: Cough, Blood in Sputum, Shortness of breath, Wheezing, Apnea GASTROINTESTINAL: Negative for: Trouble swallowing, Heartburn, Change in bowel habits, Blood in stool, Dark black stools MUSCULOSKELETAL: Negative for: Muscle or joint pain, Stiffness , Joint swelling NEUROLOGIC/PSYCHIATRIC: Negative for: Weakness, Paralysis, Numbness, Tingling, Tremor, Nervousness, Depressed mood, Memory loss SKIN: Negative for: Rashes, Itching HEMATOLOGICAL/LYMPHATIC: Negative for: Easy bruising , Easy bleeding ENDOCRINE: Negative for: Heat or cold intolerance, Excessive sweating, Frequent urination, Frequent thirst I have confirmed and edited as necessary, the PFSH and ROS obtained by others. Physical Examination: BP 112/80 Pulse 80 Resp 18 Ht 6' 0 (1.83m) Wt 189 lb (85.7kg) SpO2 97% BMI 25.63 kg/(m2). General: Appears well in no acute distress Skin: No clubbing no cyanosis HEENT PERRLA Mucosa: Moist Neck: No JVD no carotid bruit no palpable thyromegaly Heart S1-S2 rate regular rhythm no murmur no rubs or gallops Lungs: Breath sounds equal clear to auscultation bilaterally Abdomen (more content not included)... 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 He is accompanied by his pillowcase folder. He comes today for a follow-up appointment. He denies chest pain, shortness of breath, orthopnea, cough, edema, palpitations, PND, lightheadedness or syncope. He has been doing well. He climbs 3 flights of stairs at his residential at least 3 times a day without any difficulty. He also rides his bike/scooter without any cardiac symptoms. At today's visit he is accompanied by his pillowcase folder. Patient denies any chest pain shortness of breath palpitations lightheadedness syncope orthopnea PND or leg edema. PAST MEDICAL HISTORY Diagnosis Date Acquired hypothyroidism unspecified Cardiomyopathy (HCC) Chronic congestive heart failure (HCC) Chronic obstructive lung disease (HCC) Coronary arteriosclerosis Essential hypertension Hyperlipidemia Hypokalemia Paroxysmal ventricular tachycardia (HCC) Schizophrenia (HCC) Tachycardia PAST SURGICAL HISTORY Procedure Laterality Date CATARACT EXTRACTION HX Bilateral ECHO 12/25/2015 STENT PLACEMENT 12/09/2011 Cardiac Stent; 90% lesion to the mid LAD FAMILY HISTORY Problem Relation Age of Onset None Other No Known Problems Mother No Known Problems Father No Known Problems Maternal Grandmother No Known Problems Maternal Grandfather No Known Problems Paternal Grandmother No Known Problems Paternal Grandfather Social History Tobacco Use Smoking status: Former Smoker Quit date: 11/06/2010 Years since quittin.3 Smokeless tobacco: Never Used Vaping Use Vaping Use: Never used Substance Use Topics Alcohol use: No Comment: Non-drinker Drug use: No Comment: No reported history Current Outpatient Medications Medication Sig metFORMIN ER (GLUCOPHAGE XR) 500 mg 24 hr tablet Take 1 tablet by mouth once daily. allopurinol (ZYLOPRIM) 100 mg tablet Take 1 tablet by mouth once daily. carvedilol (COREG) 6.25 mg tablet Take 1 tablet by mouth twice daily with meals. ARIPiprazole (ABILIFY) 20 mg tablet Take 20 mg by mouth once daily. cholecalciferol (VITAMIN D-3) 2,000 unit tablet Take 2,000 Units by mouth once daily. clopidogrel (PLAVIX) 75 mg tablet Take 75 mg by mouth once daily. Levothyroxine 50 mcg cap Take 75 mcg by mouth once daily. pantoprazole DR (PROTONIX) 40 mg tablet Take 20 mg by mouth once daily. pravastatin (PRAVACHOL) 40 mg tablet Take 40 mg by mouth once daily. Docusate Sodium 100 mg tab Take 100 mg by mouth once daily. cloZAPine (CLOZARIL) 100 mg tablet Take 100 mg by mouth once daily. Takes 3 at night MULTIVITAMIN ORAL Take 1 tablet by mouth once daily. lisinopril (ZESTRIL, PRINIVIL) 5 mg tablet Take 1 tablet by mouth once daily. THERAPY M 9 mg iron-400 mcg tablet (Patient not taking: Reported on 02/23/2021 ) No current facility-administered medications for this visit. ALLERGIES Allergen Reactions Penicillins Other: See Comments Review of Systems: GENERAL: Negative for: Weight loss or gain, Fever or Chills, Weakness and Sleep difficulties. HEENT: Negative for: Headache, Impaired Vision, Glasses, Hearing Impairment, Ringing in Ears, Nosebleeds, Poor dental care, Bleeding Gums, Dentures NECK: Negative for: Swelling, Pain, Stiffness RESPIRATORY: Negative for: Cough, Blood in Sputum, Shortness of breath, Wheezing, Apnea GASTROINTESTINAL: Negative for: Trouble swallowing, Heartburn, Change in bowel habits, Blood in stool, Dark black stools MUSCULOSKELETAL: Negative for: Muscle or joint pain, Stiffness , Joint swelling NEUROLOGIC/PSYCHIATRIC: Negative for: Weakness, Paralysis, Numbness, Tingling, Tremor, Nervousness, Depressed mood, Memory loss SKIN: Negative for: Rashes, Itching HEMATOLOGICAL/LYMPHATIC: Negative for: Easy bruising , Easy bleeding ENDOCRINE: Negative for: Heat or cold intolerance, Excessive sweating, Frequent urination, Frequent thirst I have confirmed and edited as necessary, the PFSH and ROS obtained by others. Physical Examination: BP 112/80 Pulse 80 Resp 18 Ht 6' 0 (1.83m) Wt 189 lb (85.7kg) SpO2 97% BMI 25.63 kg/(m^2). General: Appears well in no acute distress Skin: No clubbing no cyanosis HEENT PERRLA Mucosa: Moist Neck: No JVD no carotid bruit no palpable thyromegaly Heart S1-S2 rate regular rhythm no murmur no rubs or gallops Lungs: Breath sounds equal clear to auscultation bilaterally Abdomen soft nontender no organomegaly Extremities no pedal edema Neuro: Oriented to time place and person grossly intact. Cardiac Testing and Procedures: ECG 03/14/2018: Normal sinus rhythm at 73 bpm. Left bundle branch block. RTC 464 ms. Anteroseptal infarct age undetermined. No significant change from prior EKG. 12/11/2015: NSR @ 76 bpm. T wave inversion in lateral leads. Echocardiogram 01/27/2014: EF 43%, DD-1. Evidence of R to L shunting by agitated saline contrast 01/27/2014 GRACIA: No evidence of PFO. EF 60-65% 2015: EF 33% Coronary Angiography 12/09/2011: Mid LAD 95% stenosis s/p: DOMINGA, RCA ectatic Assessment and plan: 1. Coronary artery disease - ICD10: I 25.10 Does not have any cardiac complaints. As per the pillowcase folder he has not been noted to have any decrease in his exercise tolerance and goes about his day-to-day activities. He is to continue Plavix beta-blockers and statins. Annual lipid panel being monitored by his PCP. 2. Cardiomyopathy ICD10: I25.5 To continue beta-blockers and NIECY inhibitor's in the current dose. Patient appears euvolemic. CHF core measures emphasized with him pillowcase folder. Given underlying psychiatric issues he was found not to be a suitable candidate for ICD. 3. Nonsustained VT ICD 10: I47.2 Patient has had no malignant arrhythmias since his index hospitalization in 2011. He has been off amiodarone since then. Kevin Talley MD documented in this encounter [facility] Instructions 02-23-2021 Patient Instructions Note Date & Type Note Facility 02-23-2021 Instructions Kevin Talley - 02/23/2021 11:21 AM EDT Images from the original note were not included. CORONARY ARTERY DISEASE View image View image WHAT IS CORONARY ARTERY DISEASE? Coronary artery disease (CAD) is a type of heart disease caused by a problem with the blood vessels that bring blood and oxygen to the heart muscle. These arteries are called the coronary arteries. This disease increases your risk for heart attack and sudden . WHAT IS THE CAUSE? Fatty deposits called plaque may build up in blood vessels and make them narrower. The narrowing decreases the amount of blood flow to the heart. Plaque also increases the chance that blood clots may form and block a blood vessel, which can cause a heart attack or stroke. Your risk for CAD may be higher if you: Have a family history of coronary artery disease at an early age Smoke Have high blood pressure Have diabetes Are very overweight Don t get enough exercise Have high levels of blood fat--for example, high cholesterol WHAT ARE THE SYMPTOMS? Coronary artery disease may not cause any symptoms. When there are symptoms, the most common one is chest pain, called angina. You may feel: A feeling of tightness or heaviness in the chest Squeezing, pressure, or burning in the chest Angina symptoms usually: Last for 5 minutes or less and go away with rest or medicine such as nitroglycerin. Happen when the heart has to work harder, such as after a heavy meal or during physical activity or emotional stress. Angina may also happen when you are resting. Call 911 for emergency help right away if you have symptoms of a heart attack. The most common symptoms include: Chest pain or pressure, squeezing, or fullness in the center of your chest that lasts more than a few minutes, or goes away and comes back (may feel like indigestion or heartburn) Pain or discomfort in one or both arms or shoulders, or in your back, neck, jaw, or stomach Trouble breathing Breaking out in a cold sweat for no known reason If your provider has prescribed nitroglycerin for angina, pain that does not go away after taking your nitroglycerin as directed Along with these symptoms, you may also feel very tired, faint, or be sick to your stomach. HOW IS IT DIAGNOSED? Your healthcare provider will ask about your symptoms and medical history and examine you. Tests may include: Blood tests An ECG (also called an EKG or electrocardiogram), which measures and records your heartbeat. An exercise treadmill test to see how your heart works when you exercise An echocardiogram, which uses sound waves (ultrasound) to see how well your heart is pumping Angiogram, which is a series of X-rays taken after your healthcare provider injects a special dye into your blood vessels to show the hollings[place] of the arteries and any blockage CT scan, which uses X-rays and a computer to show detailed pictures of the arteries HOW IS IT TREATED? Your treatment depends on many factors, such as your age, heart muscle function, and other health problems. At first, treatment may include diet changes and an exercise program. Your healthcare provider may prescribe medicine. Many people need to take 2 or more medicines to help prevent a heart attack or stroke. It may take several weeks or months to find the best treatment for you. Your provider may also prescribe other types of medicine to lower blood pressure, help stop chest pain, control an irregular heartbeat, help prevent blood clots, or lower blood fat (cholesterol). Your provider may recommend a daily low dose of aspirin. Taking an aspirin every day may lower your risk for a heart attack or stroke. Not everyone should take aspirin. Daily use of aspirin can cause problems, such as stomach irritation, bleeding, and hearing loss. Ask your healthcare provider if you should take aspirin and if so, how much to take. If your coronary arteries are badly blocked, you may need balloon angioplasty or bypass surgery. A balloon angioplasty opens blocked blood vessels and improves blood flow. A metal mesh device called a stent is usually left in the blood vessels to help keep them open. Bypass surgery uses blood vessels from other parts of the body, or manmade material, to make a new path around a blocked area. HOW CAN I TAKE CARE OF MYSELF? If you have coronary artery disease, there are things you can do to take care of yourself now and prevent problems in the future. Follow your provider's advice about activity, exercise, medicine, and follow-up visits. Lower the amount of salt, saturated and trans fats, and cholesterol in your diet. Work with your healthcare provider to control diabetes, blood pressure, or other health problems you may have. Try to keep a healthy weight. If you are overweight, talk to your provider about ways to lose weight. If you smoke, try to quit. Talk to your healthcare provider about ways to quit smoking. Ask your healthcare provider: o How and when you will hear your test results o How long it will take to recover o What activities you should avoid and when you can return to your normal activities o How to take care of yourself at home o What symptoms or problems you should watch for and what to do if you have them Make sure you know when you should come back for a checkup. HOW CAN I HELP PREVENT CORONARY ARTERY DISEASE? You can prevent this disease with a heart-healthy lifestyle: Eat a healthy diet and keep a healthy weight. Stay fit with the right kind of exercise for you. Find ways to manage stress. Don t smoke. Limit your use of alcohol. Talk to your healthcare provider about your personal and family medical history and your lifestyle habits. This will help you know what you can do to lower your risk for coronary artery disease. If you have a strong family history of CAD, a healthy lifestyle may slow the start of the disease and maybe even keep you from getting it. However, you must have regular checkups to keep a close watch on the health of your heart. documented in this encounter [facility] Nurse Note 02-23-2021 Katiuska Zhou ([place]) - 02/23/2021 11:09 AM EDT Note Date & Type Note Facility 02-23-2021 Nurse Note Patient has no cardiac complaints today. Katiuska Zhou CMA documented in this encounter [facility] Evaluation note Note Date & Type Note Facility documented in this encounter [facility] Summary Purpose Family History No Family History Records FoundNo Family History Records FoundNo Family History Records FoundNo Family History Records Found Advance Directives No Advanced Directives Records FoundNo Advanced Directives Records FoundNo Advanced Directives Records FoundNo Advanced Directives Records Found Additional Source Comments (unrecognized sect ion and content) No Status Records FoundNo Status Records FoundNo Status Records FoundNo Status Records Found INFORMATION SOURCE (unrecogn ized section and content) DATE CREATED AUTHOR AUTHOR'S ORGANIZ ATION 04/26/2018 [facility] DATE CREATED AUTHOR AUTHOR'S ORGANIZ ATION 04/26/2018 [facility] DATE CREATED AUTHOR AUTHOR'S ORGANIZ ATION 02/26/2021 [facility] Source Comments (unrecognize d section and content) In the event this informatio n is protected by the Federal Confidentiality of Alcohol and Drug Abuse Patient Records regulations: The Federal rules restrict any use of the information to criminally investigate or prosecute any alcohol or drug abuse patient.[facility] the event this information is protected by the Federal Confidentiality of Alcohol and Drug Abuse Patient Records regulations: The Federal rules restrict any use of the information to criminally investigate or prosecute any alcohol or drug abuse patient.[facility] the event this information is protected by the Federal Confidentiality of Alcohol and Drug Abuse Patient Records regulations: The Federal rules restrict any use of the information to criminally investigate or prosecute any alcohol or drug abuse patient.[facility] Reason for Visit (unrecogniz ed section and content) Reason Comments CARD Follow Up Annual Reason Comments Refill Request Telephone Encounter - Dian Alexandre - 12/03/2020 3:36 PM ESTTelephone Encounter - Nora Oneal - 12/03/2020 3:29 PM EST Miscellaneous Notes (unrecog nized section and content) I called and s[home with caregiver at residential and she stated that she will call back to schedule with Dr. Talley Thanks Dian Alexandre Please contact patient and schedule annual appointment. He was las seen 12/19/2019. Thank you! Nora Oneal LPN documented in this encounter Care Teams (unrecognized sec tion and content) FOR RECORDS PERTAINING TO PATIENTS WHO ARE OR HAVE BEEN ENROLLED IN A CHEMICAL DEPENDENCY/SUBSTANCEABUSE PROGRAM, SOME INFORMATION MAY BE OMITTED. This clinical summary was aggregated from multiple sources. Caution should be exercised in using it in the provision of clinical care. This summary normalizes information from multiple sources, and as a consequence, information in this document may materially change the coding, format and clinical context of patient data. In addition, data may be omitted in some cases. CLINICAL DECISIONS SHOULD BE BASED ON THE PRIMARY CLINICAL RECORDS. [employer] [facility]. provides no warranty or guarantee of the accuracy or completeness of information in this document.
[2023-11-02 08:14] LABS: Absolute Lymphocyte Count 1.74 X10^3/uL (0.83-4.51); Basophil# 0.04 X10^3/uL; Basophil% 0.5 % (0-1); Eosinophils% 2.6 % (0-5); Hematocrit 41.1 % (40-54); Hemoglobin 13.5 g/dL (13.0-16.5); Lymphocyte # 1.74 X10^3/ul (0.83-4.51); Mean Corp Hgb Conc 32.8 g/dL (32-36); Mean Corpuscular Hgb 31.3 pg (27.0-32.0); Mean Corpuscular Volume 95.4 fL (80-94); Monocyte# 0.53 X10^3/uL; NRBC Flagged by Analyzer 0 % (0-5); Neutrophil # 4.96 X10^3/uL (2.7-7.7); Neutrophil % 65.7 % (47-70); Platelet Count 188 K/mm3 (150-450); RBC Distribution Width CV 13.3 % (11.6-14.6); RBC Distribution Width SD 47.2 fl (35.1-43.9); Red Blood Count 4.31 M/mm3 (4.6-6.2); White Blood Count 7.6 K/mm3 (4.4-11.0)
== END ==
LOC: OLS.SWAL 04:00
PROVIDERS: PCP Internal Medicine; Referring Provider Internal Medicine; Visit Provider Internal Medicine
DX: Z79.899 Other long term (current) drug therapy (principal)
CPT/HCPCS: 36415; 85025

== ENCOUNTER → 2023-11-30 | Outpatient (REF) | payer MEDICARE, MEDICAID, SELFPAY ==
--- OUTSIDE RECORDS SUMMARY | 2023-11-30 04:17 | XMS RPT_ITS | CCD ---
Author Name Unknown Address [address] [place] [address] Organization [facility] Care Team Providers Care Cardiology Nurse Name Role Phone ZMEILI Unavailable Unavailable Dy, Bertrand Unavailable Unavailable Dy, Bertrand Unavailable Unavailable COURSONSARAH Unavailable Unavailable [facility] Unavailable Unavailable MAYANK, KEVIN Unavailable Unavailable MAYANK, KEVIN Unavailable Unavailable ESMER NIETO Unavailable Unavailable Esmer Nieto (Director Skills.Templer Head) Primary Care Pr ovider Soo Montesinos Primary Care Provider [phone] Allergies Allergy Classification Reported Allergen(s) Allergy Type Date of Onset Reaction(s) Facility Penicillins (antibiotic) (1 source) Penicillins Drug Allergy 6 Other: See Comments [facility] (3 sources) Penicillins; Translations: [PENICILLINS] Propensity to adverse reactions (disorder) 6 Other: See Comments [facility] Repository Medications Completed/Discontinued Medications Medication Drug [...] hypertension; Translations: [Essential (primary) hypertension] 06-09-2016 Chronic [place]-; endo-; and myocarditis; cardiomyopathy (except that caused [...] lity 02-23-2021 11:04-0400 Body height 182.9 cm [employer] Work Phone: [facility] 02-23-2021 11:04-0400 Body weight 85.73 kg Kevin [employer] Work Phone: [facility] 02-23-2021 11:04-0400 Diastolic blood pressure 80 mm[Hg] Kevin Mayank Work Phone: [facility] 02-23-2021 11:04-0400 Heart rate 80 /min Kevin Mayank Work Phone: [facility] 02-23-2021 11:04-0400 Respiratory rate 18 /min Kevin [employer] Work Phone: [facility] 02-23-2021 11:04-0400 SaO2% (BldA) [Mass fraction] 97 % Kevin [employer] Work Phone: [facility] 02-23-2021 11:04-0400 Systolic blood pressure 112 mm[Hg] Kevin Talley Work Phone: [facility] Encounters Encounter Date Encounter Type Care Provider Facility Start: 01-11-2022 Refill Kevin Talley MD Work Phone: [facility] Plan of Treatment Date Care Activity Detail Author Start: 11-06-2021 ADVANCE DIRECTIVE DISCUSSION ADVANCE DIRECTIVE DISCUSSION [facility] Start: 07-07-2021 Influenza vaccination [facility] Start: 12-19-2020 BP CONTROLLED (<130/80) BP CONTROLLE D (<130/80) [facility] Start: 07-07-2020 Influenza vaccination INFLUENZA (#1) [facility] Start: 2020 ADVANCE DIRECTIVE DISCUSSION ADVANCE DIRECTIVE DISCUSSION [facility] Start: 2020 PNEUMOVAX AGE 65 AND OVER WITH 5YR LOOKBACK (#1) PNEUMOVAX AGE 65 AND OVER WITH 5YR LOOKBACK (#1) [facility] Start: 09-01-2018 DIABETES SCREEN DIABETES SCREEN [facility] Start: 2010 PROSTATE CANCER SCRE ENING DISCUSSION PROSTATE CANCER SCREENING DISCUSSION [facility] Start: 2005 Screening for malign ant neoplasm of colon [facility] Start: 2005 SHINGRIX VACCINE (1 of 2) SHINGRIX V ACCINE (1 of 2) [facility] Start: 2000 COLOGUARD (FIT-DNA) COLOGUARD (FIT-D NA) [facility] Start: 2000 Colonoscopy COLONOSCOPY [facility] Start: 2000 COLORECTAL CANCER SCREENING COLORECTAL CANCER SCREENING [facility] Start: [address] COLONOGRAPHY [facility] Start: 2000 FECAL OCCULT BLOOD FECAL OCCULT BLOO D [facility] Start: 2000 SIGMOIDOSCOPY SIGMOIDOSCOPY [facility] Start: 1990 LIPID SCREEN LIPID SCREEN [facility] Start: 1974 Urine microalbumin profile DTAP,TDAP ,TD (1 - Tdap) [facility] Start: 1973 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 VENTURA DISEASE VISIT ANNUAL PCP TEAM CHRONIC DISEASE VISIT [facility] Start: 1973 BP CONTROLLED (<130/80) BP CONTROLLE D (<130/80) [facility] Start: 1973 Hepatitis B surface antibody level LDL CHOLESTEROL [facility] Start: 1973 HEPATITIS C SCREENING HEPATITIS C SC REENING [facility] Start: 1973 HIV SCREENING HIV SCREENING [facility] Start: 1973 SPIROMETRY SPIROMETRY [facility] Start: 1967 Adult depression scr eening assessment DEPRESSION SCREENING [facility] Start: 1960 COVID-19 VACCINE (1) COVID-19 VACCIN E (1) [facility] Start: 1955 ABDOMINAL AORTIC ANE URYSM SCREENING ABDOMINAL AORTIC ANEURYSM SCREENING [facility] Payers Date Payer Category Payer Medicare [id number] 2016 Medicare [id number] Medicare [id number] Private Health Insurance Social History Date Type Detail Facility Start: 12-19-2019 End: 02-23-2021 Tobacco smoking status NHIS Former smoker [facility] End: 11-06-2010 History of tobacco use Current smoker [facility] Start: 12-19-2019 End: 02-23-2021 Tobacco use and exposure Never used [facility] Start: 12-19-2019 End: 02-23-2021 Alcohol intake Current non-drinker of alcohol (finding) [facility] Start: 1955 Sex Assigned At Not on file [facility] Exposure to SARS-CoV -2 (event) Not sure [facility] Note 01-11-2022 Telephone Encounter - Nora Oneal [...] Nora Oneal LPN documented in this encounter [facility] Progress note 02-23-2021 Note Date & Type Note Facility 02-23-2021 Note HNO ID: [id number] Author: Kevin Talley Service: ? 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 He is accompanied by his caser in. He comes today for a follow-up appointment. He denies chest pain, shortness of breath, orthopnea, cough, edema, palpitations, PND, lightheadedness or syncope. He has been doing well. He climbs 3 flights of stairs at his senior living at least 3 times a day without any difficulty. He also rides his bike/scooter without any cardiac symptoms. At today's visit he is accompanied by his caser in. Patient denies any chest pain shortness of [...] auscultation bilaterally Abdomen (more content not included)... 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 He is accompanied by his caser in. He comes today for a follow-up appointment. He denies chest pain, shortness of breath, orthopnea, cough, edema, palpitations, PND, lightheadedness or syncope. He has been doing well. He climbs 3 flights of stairs at his senior living at least 3 times a day without any difficulty. He also rides his bike/scooter without any cardiac symptoms. At today's visit he is accompanied by his caser in. Patient denies any chest pain shortness of [...] have any cardiac complaints. As per the caser in he has not been noted to have any decrease in his exercise tolerance and goes about his day-to-day activities. He is to continue Plavix beta-blockers and statins. Annual lipid panel being monitored by his PCP. 2. Cardiomyopathy ICD10: I25.5 To continue beta-blockers and NIECY inhibitor's in the current dose. Patient appears euvolemic. CHF core measures emphasized with him caser in. Given underlying psychiatric issues he was found not to be a suitable candidate for ICD. 3. Nonsustained VT ICD 10: I47.2 Patient has had no malignant arrhythmias since his index hospitalization in 2011. He has been off amiodarone since then. Kevin Talley MD documented in this encounter [facility] Instructions 02-23-2021 Patient Instructions Note Date & [...] of your heart. documented in this encounter [facility] Nurse Note 02-23-2021 Katiuska Zhou ([place]) - 02/23/2021 11:09 AM EDT Note Date & Type Note Facility 02-23-2021 Nurse Note Patient has no cardiac complaints today. Katiuska Zhou CMA documented in this encounter [facility] Evaluation note Note Date & Type Note Facility documented in this encounter [facility] Summary Purpose Family History No Family History [...] DATE CREATED AUTHOR AUTHOR'S ORGANIZ ATION 04/26/2018 [facility] DATE CREATED AUTHOR AUTHOR'S ORGANIZ ATION 04/26/2018 [facility] DATE CREATED AUTHOR AUTHOR'S ORGANIZ ATION 02/26/2021 [facility] Source Comments (unrecognize d section and content) In the event this informatio n is protected by the Federal Confidentiality of Alcohol and Drug Abuse Patient Records regulations: The Federal rules restrict any use of the information to criminally investigate or prosecute any alcohol or drug abuse patient.[facility] the event this information is protected by the Federal Confidentiality of Alcohol and Drug Abuse Patient Records regulations: The Federal rules restrict any use of the information to criminally investigate or prosecute any alcohol or drug abuse patient.[facility] the event this information is protected by the Federal Confidentiality of Alcohol and Drug Abuse Patient Records regulations: The Federal rules restrict any use of the information to criminally investigate or prosecute any alcohol or drug abuse patient.[facility] Reason for Visit (unrecogniz ed section and content) Reason Comments CARD Follow Up Annual Reason Comments Refill Request Telephone Encounter - Dian Alexandre - 12/03/2020 3:36 PM ESTTelephone Encounter - Nora Oneal - 12/03/2020 3:29 PM EST Miscellaneous Notes (unrecog nized section and content) I called and s[home with caregiver at senior living and she stated that she will call [...] BE BASED ON THE PRIMARY CLINICAL RECORDS. [employer] [facility]. provides no warranty or guarantee of the accuracy or completeness of information in this document.
[2023-11-30 08:40] LABS: Absolute Lymphocyte Count 1.65 X10^3/uL (0.83-4.51); Absolute Neutrophil Count 3.1 X10^3/uL (2.0-7.7); Basophil# 0.03 X10^3/uL; Basophil% 0.5 % (0-1); Eosinophil# 0.22 X10^3/uL; Eosinophils% 3.8 % (0-5); Hematocrit 39.7 % (40-54); Hemoglobin 13.3 g/dL (13.0-16.5); Lymphocyte # 1.65 X10^3/ul (0.83-4.51); Lymphocyte % 28.8 % (19-41); Mean Corp Hgb Conc 33.5 g/dL (32-36); Mean Corpuscular Hgb 31.9 pg (27.0-32.0); Mean Corpuscular Volume 95.2 fL (80-94); Mean Platelet Vol. 10.8 fl (6.2-12.0); Monocyte# 0.63 X10^3/uL; NRBC Flagged by Analyzer 0 % (0-5); Neutrophil # 3.14 X10^3/uL (2.7-7.7); Neutrophil % 54.9 % (47-70); Platelet Count 171 K/mm3 (150-450); RBC Distribution Width CV 13.3 % (11.6-14.6); RBC Distribution Width SD 46.9 fl (35.1-43.9); Red Blood Count 4.17 M/mm3 (4.6-6.2); White Blood Count 5.7 K/mm3 (4.4-11.0)
== END ==
LOC: OLS.SWAL 05:00
PROVIDERS: PCP Internal Medicine; Visit Provider Internal Medicine
DX: Z79.899 Other long term (current) drug therapy (principal)
CPT/HCPCS: 36415; 85025

== ENCOUNTER → 2023-12-01 | Outpatient (REF) | payer MEDICARE, MEDICAID, SELFPAY ==
--- OUTSIDE RECORDS SUMMARY | 2023-12-01 05:25 | XMS RPT_ITS | CCD ---
Author Name Unknown Address [address] [place] [address] Organization [facility] Care Team Providers Care Psychology Lecturer Name Role Phone ZMEILI Unavailable Unavailable Dy, Bertrand Unavailable Unavailable Dy, Bertrand Unavailable Unavailable COURSONSARAH Unavailable Unavailable IMCA Unavailable Unavailable MAYANK, KEVIN Unavailable Unavailable MAYANK, KEVIN Unavailable Unavailable ESMER NIETO Unavailable Unavailable Esmer Nieto (Skidway Worker.Proof Coins Inspector) Primary Care Pr ovider Soo Montesinos Primary Care Provider Allergies Allergy Classification Reported Allergen(s) Allergy Type Date of Onset Reaction(s) Facility Penicillins (antibiotic) (1 source) Penicillins Drug Allergy 6 Other: See Comments [facility] (3 sources) Penicillins; Translations: [PENICILLINS] Propensity to adverse reactions (disorder) 6 Other: See Comments [facility] Repository Medications Completed/Discontinued Medications Medication Drug Class(es) [...] lity 02-23-2021 11:04-0400 Body height 182.9 cm [employer] Work Phone: [facility] 02-23-2021 11:04-0400 Body weight 85.73 kg Kevin [employer] Work Phone: [facility] 02-23-2021 11:04-0400 Diastolic blood pressure 80 mm[Hg] Kevin Mayank Work Phone: [facility] 02-23-2021 11:04-0400 Heart rate 80 /min Kevin Mayank Work Phone: [facility] 02-23-2021 11:04-0400 Respiratory rate 18 /min [employer] Work Phone: [facility] 02-23-2021 11:04-0400 SaO2% (BldA) [Mass fraction] 97 % Kevin [employer] Work Phone: [facility] 02-23-2021 11:04-0400 Systolic blood pressure 112 mm[Hg] Kevin Talley Work Phone: [facility] Encounters Encounter Date Encounter Type Care Provider Facility Start: 01-11-2022 Refill Kevin Talley MD Work Phone: [facility] Plan of Treatment Date Care Activity Detail Author Start: 11-06-2021 ADVANCE DIRECTIVE DISCUSSION ADVANCE DIRECTIVE DISCUSSION [facility] Start: 07-07-2021 Influenza vaccination [facility] Start: 12-19-2020 BP CONTROLLED (<130/80) BP CONTROLLE D (<130/80) [facility] Start: 07-07-2020 Influenza vaccination INFLUENZA (#1) [facility] Start: 2020 ADVANCE DIRECTIVE DISCUSSION ADVANCE DIRECTIVE DISCUSSION [facility] Start: 2020 PNEUMOVAX AGE 65 AND OVER WITH 5YR LOOKBACK (#1) PNEUMOVAX AGE 65 AND OVER WITH 5YR LOOKBACK (#1) [facility] Start: 09-01-2018 DIABETES SCREEN DIABETES SCREEN [facility] Start: 2010 PROSTATE CANCER SCRE ENING DISCUSSION PROSTATE CANCER SCREENING DISCUSSION [facility] Start: 2005 Screening for malign ant neoplasm of colon [facility] Start: 2005 SHINGRIX VACCINE (1 of 2) SHINGRIX V ACCINE (1 of 2) [facility] Start: 2000 COLOGUARD (FIT-DNA) COLOGUARD (FIT-D NA) [facility] Start: 2000 Colonoscopy COLONOSCOPY [facility] Start: 2000 COLORECTAL CANCER SCREENING COLORECTAL CANCER SCREENING [facility] Start: [address] COLONOGRAPHY [facility] Start: 2000 FECAL OCCULT BLOOD FECAL OCCULT BLOO D [facility] Start: 2000 SIGMOIDOSCOPY SIGMOIDOSCOPY [facility] Start: 1990 LIPID SCREEN LIPID SCREEN [facility] Start: 1974 Urine microalbumin profile DTAP,TDAP ,TD (1 - Tdap) [facility] Start: 1973 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 DISEASE VISIT ANNUAL PCP TEAM CHRONIC DISEASE VISIT [facility] Start: 1973 BP CONTROLLED (<130/80) BP CONTROLLE D (<130/80) [facility] Start: 1973 Hepatitis B surface antibody level LDL CHOLESTEROL [facility] Start: 1973 HEPATITIS C SCREENING HEPATITIS C SC REENING [facility] Start: 1973 HIV SCREENING HIV SCREENING [facility] Start: 1973 SPIROMETRY SPIROMETRY [facility] Start: 1967 Adult depression scr eening assessment DEPRESSION SCREENING [facility] Start: 1960 COVID-19 VACCINE (1) COVID-19 VACCIN E (1) [facility] Start: 1955 ABDOMINAL AORTIC ANE URYSM SCREENING ABDOMINAL AORTIC ANEURYSM SCREENING [facility] Payers Date Payer Category Payer Medicare [id number] 2016 Medicare [id number] Medicare [id number] Private Health Insurance Social History Date Type Detail Facility Start: 12-19-2019 End: 02-23-2021 Tobacco smoking status NHIS Former smoker [facility] End: 11-06-2010 History of tobacco use Current smoker [facility] Start: 12-19-2019 End: 02-23-2021 Tobacco use and exposure Never used [facility] Start: 12-19-2019 End: 02-23-2021 Alcohol intake Current non-drinker of alcohol (finding) [facility] Start: 1955 Sex Assigned At Not on file [facility] Exposure to SARS-CoV -2 (event) Not sure [facility] Note 01-11-2022 Telephone Encounter - Nora [...] Nora Oneal LPN documented in this encounter [facility] Progress note 02-23-2021 Note Date & Type Note Facility 02-23-2021 Note HNO ID: [id number] Author: Kevin Talley Service: ? 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 He is accompanied by his manager of case. He comes today for a follow-up appointment. He denies chest pain, shortness of breath, orthopnea, cough, edema, palpitations, PND, lightheadedness or syncope. He has been doing well. He climbs 3 flights of stairs at his retirement at least 3 times a day without any difficulty. He also rides his bike/scooter without any cardiac symptoms. At today's visit he is accompanied by his manager of case. Patient denies any chest pain shortness of [...] auscultation bilaterally Abdomen (more content not included)... 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 He is accompanied by his manager of case. He comes today for a follow-up appointment. He denies chest pain, shortness of breath, orthopnea, cough, edema, palpitations, PND, lightheadedness or syncope. He has been doing well. He climbs 3 flights of stairs at his retirement at least 3 times a day without any difficulty. He also rides his bike/scooter without any cardiac symptoms. At today's visit he is accompanied by his manager of case. Patient denies any chest pain shortness of [...] L shunting by agitated saline contrast 01/27/2014 GRACAI: No evidence of PFO. EF 60-65% 2015: EF 33% Coronary Angiography 12/09/2011: Mid LAD 95% stenosis s/p: DOMINGA, RCA ectatic Assessment and plan: 1. Coronary artery disease - ICD10: I 25.10 Does not have any cardiac complaints. As per the manager of case he has not been noted to have any decrease in his exercise tolerance and goes about his day-to-day activities. He is to continue Plavix beta-blockers and statins. Annual lipid panel being monitored by his PCP. 2. Cardiomyopathy ICD10: I25.5 To continue beta-blockers and NIECY inhibitor's in the current dose. Patient appears euvolemic. CHF core measures emphasized with him manager of case. Given underlying psychiatric issues he was found not to be a suitable candidate for ICD. 3. Nonsustained [place] ICD 10: I47.2 Patient has had no malignant arrhythmias since his index hospitalization in 2011. He has been off amiodarone since then. Kevin Talley MD documented in this encounter [facility] Instructions 02-23-2021 Patient Instructions Note Date [...] of your heart. documented in this encounter [facility] Nurse Note 02-23-2021 Katiuska Zhou ([place]) - 02/23/2021 11:09 AM EDT Note Date & Type Note Facility 02-23-2021 Nurse Note Patient has no cardiac complaints today. Katiuska Zhou CMA documented in this encounter [facility] Evaluation note Note Date & Type Note Facility documented in this encounter [facility] Summary Purpose Family History No Family [...] DATE CREATED AUTHOR AUTHOR'S ORGANIZ ATION 04/26/2018 [facility] DATE CREATED AUTHOR AUTHOR'S ORGANIZ ATION 04/26/2018 [facility] DATE CREATED AUTHOR AUTHOR'S ORGANIZ ATION 02/26/2021 [facility] dical Center Source Comments (unrecognize d section and content) In the event this informatio n is protected by the Federal Confidentiality of Alcohol and Drug Abuse Patient Records regulations: The Federal rules restrict any use of the information to criminally investigate or prosecute any alcohol or drug abuse patient.[facility] the event this information is protected by the Federal Confidentiality of Alcohol and Drug Abuse Patient Records regulations: The Federal rules restrict any use of the information to criminally investigate or prosecute any alcohol or drug abuse patient.[facility] the event this information is protected by the Federal Confidentiality of Alcohol and Drug Abuse Patient Records regulations: The Federal rules restrict any use of the information to criminally investigate or prosecute any alcohol or drug abuse patient.[facility] Reason for Visit (unrecogniz ed section and content) Reason Comments CARD Follow Up Annual Reason Comments Refill Request Telephone Encounter - Dian Alexandre - 12/03/2020 3:36 PM ESTTelephone Encounter - Nora Oneal - 12/03/2020 3:29 PM EST Miscellaneous Notes (unrecog nized section and content) I called and s[home with caregiver at retirement and she stated that she will call [...] BE BASED ON THE PRIMARY CLINICAL RECORDS. [employer] [facility]. provides no warranty or guarantee of the accuracy or completeness of information in this document.
[2023-12-01 09:35] LABS: Absolute Lymphocyte Count 1.42 X10^3/uL (0.83-4.51); Absolute Neutrophil Count 4.2 X10^3/uL (2.0-7.7); Basophil# 0.05 X10^3/uL; Basophil% 0.8 % (0-1); Eosinophil# 0.28 X10^3/uL; Eosinophils% 4.2 % (0-5); Hematocrit 40.7 % (40-54); Hemoglobin 13.6 g/dL (13.0-16.5); Lymphocyte # 1.42 X10^3/ul (0.83-4.51); Lymphocyte % 21.4 % (19-41); Mean Corp Hgb Conc 33.4 g/dL (32-36); Mean Corpuscular Hgb 31.6 pg (27.0-32.0); Mean Corpuscular Volume 94.4 fL (80-94); Mean Platelet Vol. 11.1 fl (6.2-12.0); Monocyte# 0.61 X10^3/uL; Monocyte% 9.2 % (0-10); NRBC Flagged by Analyzer 0 % (0-5); Neutrophil # 4.15 X10^3/uL (2.7-7.7); Neutrophil % 62.6 % (47-70); Platelet Count 185 K/mm3 (150-450); RBC Distribution Width CV 13.2 % (11.6-14.6); RBC Distribution Width SD 45.2 fl (35.1-43.9); Red Blood Count 4.31 M/mm3 (4.6-6.2); White Blood Count 6.6 K/mm3 (4.4-11.0)
== END ==
LOC: OLS.SWAL 05:00
PROVIDERS: PCP Internal Medicine; Visit Provider Internal Medicine
DX: Z79.899 Other long term (current) drug therapy (principal)
CPT/HCPCS: 36415; 85025

== ENCOUNTER → 2023-12-28 | Outpatient (REF) | payer MEDICARE, MEDICAID, SELFPAY ==
--- OUTSIDE RECORDS SUMMARY | 2023-12-28 04:36 | XMS RPT_ITS | CCD ---
Author Name Unknown Address [address] [place] [address] Organization [facility] Care Team Providers Care Shank Skinner Name Role Phone ZMEILI Unavailable Unavailable Dy, Bertrand Unavailable Unavailable Dy, Bertrand Unavailable Unavailable COURSONSARAH Unavailable Unavailable IMCA Unavailable Unavailable MAYANK, KEVIN Unavailable Unavailable MAYANK, KEVIN Unavailable Unavailable ESMER NIETO Unavailable Unavailable Esmer Nieto (Baller Tender.Section Supervisor) Primary Care Pr ovider Soo Montesinos Primary Care Provider Allergies Allergy Classification Reported Allergen(s) Allergy Type Date of Onset Reaction(s) Facility Penicillins (antibiotic) (1 source) Penicillins Drug Allergy 6 Other: See Comments [facility] (3 sources) Penicillins; Translations: [PENICILLINS] Propensity to adverse reactions (disorder) 6 Other: See Comments [facility] Repository Medications Completed/Discontinued Medications Medication [...] lity 02-23-2021 11:04-0400 Body height 182.9 cm [employer] Work Phone: [facility] 02-23-2021 11:04-0400 Body weight 85.73 kg Kevin [employer] Work Phone: [facility] 02-23-2021 11:04-0400 Diastolic blood pressure 80 mm[Hg] Kevin Mayank Work Phone: [facility] 02-23-2021 11:04-0400 Heart rate 80 /min Kevin Mayank Work Phone: [facility] 02-23-2021 11:04-0400 Respiratory rate 18 /min [employer] Work Phone: [facility] 02-23-2021 11:04-0400 SaO2% (BldA) [Mass fraction] 97 % [employer] Work Phone: [facility] 02-23-2021 11:04-0400 Systolic blood pressure 112 mm[Hg] Kevin Talley Work Phone: [facility] Encounters Encounter Date Encounter Type Care Provider Facility Start: 01-11-2022 Refill Kevin Talley MD Work Phone: [facility] Plan of Treatment Date Care Activity Detail Author Start: 11-06-2021 ADVANCE DIRECTIVE DISCUSSION ADVANCE DIRECTIVE DISCUSSION [facility] Start: 07-07-2021 Influenza vaccination [facility] Start: 12-19-2020 BP CONTROLLED (<130/80) BP CONTROLLE D (<130/80) [facility] Start: 07-07-2020 Influenza vaccination INFLUENZA (#1) [facility] Start: 2020 ADVANCE DIRECTIVE DISCUSSION ADVANCE DIRECTIVE DISCUSSION [facility] Start: 2020 PNEUMOVAX AGE 65 AND OVER WITH 5YR LOOKBACK (#1) PNEUMOVAX AGE 65 AND OVER WITH 5YR LOOKBACK (#1) [facility] Start: 09-01-2018 DIABETES SCREEN DIABETES SCREEN [facility] Start: 2010 PROSTATE CANCER SCRE ENING DISCUSSION PROSTATE CANCER SCREENING DISCUSSION [facility] Start: 2005 Screening for malign ant neoplasm of colon [facility] Start: 2005 SHINGRIX VACCINE (1 of 2) SHINGRIX V ACCINE (1 of 2) [facility] Start: 2000 COLOGUARD (FIT-DNA) COLOGUARD (FIT-D NA) [facility] Start: 2000 Colonoscopy COLONOSCOPY [facility] Start: 2000 COLORECTAL CANCER SCREENING COLORECTAL CANCER SCREENING [facility] Start: [address] COLONOGRAPHY [facility] Start: 2000 FECAL OCCULT BLOOD FECAL OCCULT BLOO D [facility] Start: 2000 SIGMOIDOSCOPY SIGMOIDOSCOPY [facility] Start: 1990 LIPID SCREEN LIPID SCREEN [facility] Start: 1974 Urine microalbumin profile DTAP,TDAP ,TD (1 - Tdap) [facility] Start: 1973 ANNUAL PCP TEAM CATERING BARISTA VENTURA DISEASE VISIT ANNUAL PCP TEAM CHRONIC DISEASE VISIT [facility] Start: 1973 BP CONTROLLED (<130/80) BP CONTROLLE D (<130/80) [facility] Start: 1973 Hepatitis B surface antibody level LDL CHOLESTEROL [facility] Start: 1973 HEPATITIS C SCREENING HEPATITIS C SC REENING [facility] Start: 1973 HIV SCREENING HIV SCREENING [facility] Start: 1973 SPIROMETRY SPIROMETRY [facility] Start: 1967 Adult depression scr eening assessment DEPRESSION SCREENING [facility] Start: 1960 COVID-19 VACCINE (1) COVID-19 VACCIN E (1) [facility] Start: 1955 ABDOMINAL AORTIC ANE URYSM SCREENING ABDOMINAL AORTIC ANEURYSM SCREENING [facility] Payers Date Payer Category Payer Medicare [id number] 2016 Medicare [id number] Medicare [id number] Private Health Insurance Social History Date Type Detail Facility Start: 12-19-2019 End: 02-23-2021 Tobacco smoking status NHIS Former smoker [facility] End: 11-06-2010 History of tobacco use Current smoker [facility] Start: 12-19-2019 End: 02-23-2021 Tobacco use and exposure Never used [facility] Start: 12-19-2019 End: 02-23-2021 Alcohol intake Current non-drinker of alcohol (finding) [facility] Start: 1955 Sex Assigned At Not on file [facility] Exposure to SARS-CoV -2 (event) Not sure [facility] Note 01-11-2022 Telephone Encounter - Nora Oneal LPN - 01/11/2022 10:52 AM EST Note Date & Type Note Facility 01-11-2022 Miscellaneous Notes Patient's request for medication is as follows: Pending Prescriptions Disp Refills LISINOPRIL 5 MG TABLET 90 tablet 3 Sig: TAKE 1 TABLET BY MOUTH DAILY IJOEMA: Yes CARVEDILOL 6.25 MG TABLET 180 tablet 3 Sig: TAKE 1 TABLET BY MOUTH TWICE A DAY WITH MEALS IJEOMA: Yes Last seen 02/23/2021. Follow up scheduled for 02/28/2022. Prescription(s) as above. Please process accordingly. Nora Oneal LPN documented in this encounter [facility] Progress note 02-23-2021 Note Date & Type Note Facility 02-23-2021 Note HNO ID: [id number] Author: Kevin Talley Service: ? 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 He is accompanied by his home health care case manager. He comes today for a follow-up appointment. He denies chest pain, shortness of breath, orthopnea, cough, edema, palpitations, PND, lightheadedness or syncope. He has been doing well. He climbs 3 flights of stairs at his correction at least 3 times a day without any difficulty. He also rides his bike/scooter without any cardiac symptoms. At today's visit he is accompanied by his home health care case manager. Patient denies any chest pain shortness of [...] auscultation bilaterally Abdomen (more content not included)... 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 He is accompanied by his home health care case manager. He comes today for a follow-up appointment. He denies chest pain, shortness of breath, orthopnea, cough, edema, palpitations, PND, lightheadedness or syncope. He has been doing well. He climbs 3 flights of stairs at his correction at least 3 times a day without any difficulty. He also rides his bike/scooter without any cardiac symptoms. At today's visit he is accompanied by his home health care case manager. Patient denies any chest pain shortness of [...] have any cardiac complaints. As per the home health care case manager he has not been noted to have any decrease in his exercise tolerance and goes about his day-to-day activities. He is to continue Plavix beta-blockers and statins. Annual lipid panel being monitored by his PCP. 2. Cardiomyopathy ICD10: I25.5 To continue beta-blockers and NIECY inhibitor's in the current dose. Patient appears euvolemic. CHF core measures emphasized with him home health care case manager. Given underlying psychiatric issues he was found not to be a suitable candidate for ICD. 3. Nonsustained [place] ICD 10: I47.2 Patient has had no malignant arrhythmias since his index hospitalization in 2011. He has been off amiodarone since then. Kevin Talley MD documented in this encounter [facility] Instructions 02-23-2021 Patient Instructions Note Date [...] of your heart. documented in this encounter [facility] Nurse Note 02-23-2021 Katiuska Zhou ([place]) - 02/23/2021 11:09 AM EDT Note Date & Type Note Facility 02-23-2021 Nurse Note Patient has no cardiac complaints today. Katiuska Zhou CMA documented in this encounter [facility] Evaluation note Note Date & Type Note Facility documented in this encounter [facility] Summary Purpose Family History No Family [...] DATE CREATED AUTHOR AUTHOR'S ORGANIZ ATION 04/26/2018 [facility] DATE CREATED AUTHOR AUTHOR'S ORGANIZ ATION 04/26/2018 Sys tem DATE CREATED AUTHOR AUTHOR'S ORGANIZ ATION 02/26/2021 [facility] dical Center Source Comments (unrecognize d section and content) In the event this informatio n is protected by the Federal Confidentiality of Alcohol and Drug Abuse Patient Records regulations: The Federal rules restrict any use of the information to criminally investigate or prosecute any alcohol or drug abuse patient.[facility] the event this information is protected by the Federal Confidentiality of Alcohol and Drug Abuse Patient Records regulations: The Federal rules restrict any use of the information to criminally investigate or prosecute any alcohol or drug abuse patient.[facility] the event this information is protected by the Federal Confidentiality of Alcohol and Drug Abuse Patient Records regulations: The Federal rules restrict any use of the information to criminally investigate or prosecute any alcohol or drug abuse patient.[facility] Reason for Visit (unrecogniz ed section and content) Reason Comments CARD Follow Up Annual Reason Comments Refill Request Telephone Encounter - Dian Alexandre - 12/03/2020 3:36 PM ESTTelephone Encounter - Nora Oneal - 12/03/2020 3:29 PM EST Miscellaneous Notes (unrecog nized section and content) I called and s[home with caregiver at correction and she stated that she will call [...] BE BASED ON THE PRIMARY CLINICAL RECORDS. [employer] [facility]. provides no warranty or guarantee of the accuracy or completeness of information in this document.
[2023-12-28 08:28] LABS: Absolute Lymphocyte Count 1.63 X10^3/uL (0.83-4.51); Basophil# 0.06 X10^3/uL; Basophil% 0.8 % (0-1); Eosinophil# 0.27 X10^3/uL; Eosinophils% 3.5 % (0-5); Hematocrit 44.1 % (40-54); Hemoglobin 14.7 g/dL (13.0-16.5); Lymphocyte # 1.63 X10^3/ul (0.83-4.51); Lymphocyte % 21.3 % (19-41); Mean Corp Hgb Conc 33.3 g/dL (32-36); Mean Corpuscular Hgb 31.5 pg (27.0-32.0); Mean Corpuscular Volume 94.6 fL (80-94); Mean Platelet Vol. 11.2 fl (6.2-12.0); Monocyte# 0.62 X10^3/uL; Monocyte% 8.1 % (0-10); NRBC Flagged by Analyzer 0 % (0-5); Neutrophil # 4.98 X10^3/uL (2.7-7.7); Platelet Count 175 K/mm3 (150-450); RBC Distribution Width CV 13.2 % (11.6-14.6); RBC Distribution Width SD 45.2 fl (35.1-43.9); Red Blood Count 4.66 M/mm3 (4.6-6.2); White Blood Count 7.7 K/mm3 (4.4-11.0)
== END ==
LOC: OLS.SWAL 05:00
PROVIDERS: PCP Internal Medicine; Visit Provider Internal Medicine
DX: Z79.899 Other long term (current) drug therapy (principal)
CPT/HCPCS: 36415; 85025

== ENCOUNTER → 2024-01-25 | Outpatient (REF) | payer MEDICARE, MEDICAID, SELFPAY ==
[2024-01-25 08:49] LABS: Absolute Lymphocyte Count 2.04 X10^3/uL (0.83-4.51); Absolute Neutrophil Count 4.8 X10^3/uL (2.0-7.7); Basophil# 0.06 X10^3/uL; Basophil% 0.8 % (0-1); Eosinophil# 0.19 X10^3/uL; Eosinophils% 2.5 % (0-5); Hematocrit 44.9 % (40-54); Hemoglobin 14.7 g/dL (13.0-16.5); Lymphocyte # 2.04 X10^3/ul (0.83-4.51); Lymphocyte % 26.4 % (19-41); Mean Corp Hgb Conc 32.7 g/dL (32-36); Mean Corpuscular Hgb 31.1 pg (27.0-32.0); Mean Corpuscular Volume 95.1 fL (80-94); Mean Platelet Vol. 11.1 fl (6.2-12.0); Monocyte# 0.51 X10^3/uL; Monocyte% 6.6 % (0-10); NRBC Flagged by Analyzer 0 % (0-5); Neutrophil # 4.83 X10^3/uL (2.7-7.7); Neutrophil % 62.4 % (47-70); Platelet Count 192 K/mm3 (150-450); RBC Distribution Width SD 45.4 fl (35.1-43.9); Red Blood Count 4.72 M/mm3 (4.6-6.2); White Blood Count 7.7 K/mm3 (4.4-11.0)
== END ==
LOC: OLS.SWAL 05:00
PROVIDERS: PCP Internal Medicine; Visit Provider Internal Medicine
DX: Z79.899 Other long term (current) drug therapy (principal)
CPT/HCPCS: 36415; 85025

== ENCOUNTER → 2024-02-23 | Outpatient (REF) | payer MEDICARE, MEDICAID, SELFPAY ==
[2024-02-23 08:16] LABS: Absolute Lymphocyte Count 1.93 X10^3/uL (0.83-4.51); Absolute Neutrophil Count 4.7 X10^3/uL (2.0-7.7); Basophil# 0.08 X10^3/uL; Eosinophil# 0.21 X10^3/uL; Eosinophils% 2.7 % (0-5); Hematocrit 44.3 % (40-54); Hemoglobin 14.8 g/dL (13.0-16.5); Lymphocyte # 1.93 X10^3/ul (0.83-4.51); Lymphocyte % 25.3 % (19-41); Mean Corp Hgb Conc 33.4 g/dL (32-36); Mean Corpuscular Hgb 31.4 pg (27.0-32.0); Mean Corpuscular Volume 94.1 fL (80-94); Mean Platelet Vol. 10.9 fl (6.2-12.0); Monocyte# 0.63 X10^3/uL; Monocyte% 8.2 % (0-10); NRBC Flagged by Analyzer 0 % (0-5); Neutrophil # 4.69 X10^3/uL (2.7-7.7); Neutrophil % 61.5 % (47-70); Platelet Count 185 K/mm3 (150-450); RBC Distribution Width CV 12.9 % (11.6-14.6); RBC Distribution Width SD 44.2 fl (35.1-43.9); Red Blood Count 4.71 M/mm3 (4.6-6.2); White Blood Count 7.6 K/mm3 (4.4-11.0)
[2024-02-23 09:49] LABS: ALB/GLOB Ratio 1.1 RATIO (0.9-2.4); AST(SGOT) 36 U/L (15-37); Alanine Aminotransfer ALT/SGPT 75 U/L (16-61); Albumin, Serum 3.6 g/dL (3.2-5.0); Alkaline Phosphatase 81 U/L (45-117); Anion Gap 9 (5-15); BUN 12 mg/dL (7-18); BUN/Creat Ratio 11.8 RATIO (10-20); Calcium,Total 8.9 mg/dL (8.5-10.1); Chloride 107 mmol/L (98-107); Creatinine, Serum 1.02 mg/dL (0.70-1.30); EST Glomerular Filtration Rate 77 mL/min (>60); Est Glom Filt Rate - Afr Amer 93 mL/min (>60); Globulin 3.3 g/dL (2.2-4.2); Glucose 147 mg/dL (74-106); Lipase 70 U/L (13-75); Potassium 3.9 mmol/L (3.5-5.1); Protein, Total 6.9 g/dL (6.4-8.2); Sodium Level 141 mmol/L (136-145)
== END ==
LOC: OLS.SWAL 04:00
PROVIDERS: PCP Internal Medicine; Referring Provider Internal Medicine; Visit Provider Internal Medicine
DX: I10 Essential (primary) hypertension (principal); E78.5 Hyperlipidemia, unspecified
CPT/HCPCS: 36415; 80053; 83690; 85025

== ENCOUNTER → 2024-03-22 | Outpatient (REF) | payer MEDICARE, MEDICAID, SELFPAY ==
[2024-03-22 08:55] LABS: Absolute Lymphocyte Count 1.64 X10^3/uL (0.83-4.51); Absolute Neutrophil Count 4.4 X10^3/uL (2.0-7.7); Basophil# 0.04 X10^3/uL; Basophil% 0.6 % (0-1); Eosinophil# 0.16 X10^3/uL; Eosinophils% 2.3 % (0-5); Hemoglobin 13.8 g/dL (13.0-16.5); Lymphocyte # 1.64 X10^3/ul (0.83-4.51); Lymphocyte % 23.9 % (19-41); Mean Corp Hgb Conc 32.9 g/dL (32-36); Mean Corpuscular Hgb 31.5 pg (27.0-32.0); Mean Corpuscular Volume 95.9 fL (80-94); Mean Platelet Vol. 11.1 fl (6.2-12.0); Monocyte# 0.59 X10^3/uL; Monocyte% 8.6 % (0-10); NRBC Flagged by Analyzer 0 % (0-5); Neutrophil # 4.35 X10^3/uL (2.7-7.7); Neutrophil % 63.6 % (47-70); Platelet Count 171 K/mm3 (150-450); RBC Distribution Width CV 13.1 % (11.6-14.6); RBC Distribution Width SD 45.8 fl (35.1-43.9); Red Blood Count 4.38 M/mm3 (4.6-6.2); White Blood Count 6.9 K/mm3 (4.4-11.0)
[2024-03-22 20:44] LABS: Hemoglobin A1c 6.7 % (3.8-5.6)
== END ==
LOC: OLS.SWAL 05:00
PROVIDERS: PCP Internal Medicine; Visit Provider Internal Medicine
DX: Z79.899 Other long term (current) drug therapy (principal)
CPT/HCPCS: 36415; 83036; 85025

== ENCOUNTER → 2024-04-19 | Outpatient (REF) | payer MEDICARE, MEDICAID, SELFPAY ==
[2024-04-19 10:04] LABS: Absolute Lymphocyte Count 1.42 X10^3/uL (0.83-4.51); Absolute Neutrophil Count 6.4 X10^3/uL (2.0-7.7); Basophil# 0.06 X10^3/uL; Basophil% 0.7 % (0-1); Eosinophil# 0.29 X10^3/uL; Eosinophils% 3.3 % (0-5); Hematocrit 41.5 % (40-54); Hemoglobin 13.8 g/dL (13.0-16.5); Lymphocyte # 1.42 X10^3/ul (0.83-4.51); Lymphocyte % 16.3 % (19-41); Mean Corp Hgb Conc 33.3 g/dL (32-36); Mean Corpuscular Hgb 31.3 pg (27.0-32.0); Mean Corpuscular Volume 94.1 fL (80-94); Mean Platelet Vol. 10.8 fl (6.2-12.0); Monocyte# 0.54 X10^3/uL; Monocyte% 6.2 % (0-10); NRBC Flagged by Analyzer 0 % (0-5); Neutrophil # 6.36 X10^3/uL (2.7-7.7); Neutrophil % 72.8 % (47-70); Platelet Count 165 K/mm3 (150-450); RBC Distribution Width CV 13.2 % (11.6-14.6); RBC Distribution Width SD 45.2 fl (35.1-43.9); Red Blood Count 4.41 M/mm3 (4.6-6.2); White Blood Count 8.7 K/mm3 (4.4-11.0)
[2024-04-19 20:28] LABS: Hemoglobin A1c 7.3 % (3.8-5.6)
== END ==
LOC: OLS.SWAL 05:00
PROVIDERS: PCP Internal Medicine; Visit Provider Internal Medicine
DX: Z79.899 Other long term (current) drug therapy (principal)
CPT/HCPCS: 36415; 83036; 85025

== ENCOUNTER → 2024-05-17 | Outpatient (REF) | payer MEDICARE, MEDICAID, SELFPAY ==
[2024-05-17 09:20] LABS: Absolute Neutrophil Count 4.2 X10^3/uL (2.0-7.7); Basophil# 0.06 X10^3/uL; Basophil% 0.9 % (0-1); Eosinophil# 0.23 X10^3/uL; Eosinophils% 3.3 % (0-5); Hematocrit 40.9 % (40-54); Lymphocyte % 27.1 % (19-41); Mean Corp Hgb Conc 34.2 g/dL (32-36); Mean Corpuscular Hgb 31.6 pg (27.0-32.0); Mean Corpuscular Volume 92.3 fL (80-94); Monocyte# 0.56 X10^3/uL; NRBC Flagged by Analyzer 0 % (0-5); Neutrophil # 4.19 X10^3/uL (2.7-7.7); Neutrophil % 59.6 % (47-70); Platelet Count 159 K/mm3 (150-450); RBC Distribution Width CV 12.9 % (11.6-14.6); RBC Distribution Width SD 43.6 fl (35.1-43.9); Red Blood Count 4.43 M/mm3 (4.6-6.2)
[2024-05-17 23:41] LABS: Hemoglobin A1c 7.4 % (3.8-5.6)
== END ==
LOC: OLS.SWAL 04:00
PROVIDERS: PCP Internal Medicine; Referring Provider Internal Medicine; Visit Provider Internal Medicine
DX: Z79.899 Other long term (current) drug therapy (principal)
CPT/HCPCS: 36415; 83036; 85025

== ENCOUNTER → 2024-05-26 10:10 | Outpatient (REF) | payer MEDICARE, MEDICAID, SELFPAY ==
[2024-05-27 08:33] LABS: Bacteria 0 SEEN /hpf (None Seen); Mucous, Urine 0 SEEN /hpf (<or=2+); Red Blood Cells-Urine 0 SEEN /hpf (0-5); Squamous Epithelial Cells - UA 0 SEEN /hpf (0-5); White Blood Cells 0 SEEN /hpf (0-5)
[2024-05-27 08:42] LABS: Color, Urine Yellow (Yellow); Glucose, Dipstick 100 mg/dl (Normal); Ketone-Dipstick Negative (Negative); Leukocyte Esterase-Dipstick Negative /ul (Negative); Nitrite-Dipstick Negative (Negative); Occult Blood-Urine Negative /ul (Negative); Protein-Dipstick Negative (Negative); Specific Gravity, Urine 1.015 (1.002-1.030); Urine Bilirubin Dipstick Negative (Negative); Urine Clarity Clear (Clear); Urine Urobilinogen Normal (Normal)
== END ==
LOC: OLS.SWAL 10:10
PROVIDERS: PCP Internal Medicine; Referring Provider Internal Medicine; Visit Provider Internal Medicine
DX: R44.3 Hallucinations, unspecified (principal); R46.89 Other symptoms and signs involving appearance and behavior
CPT/HCPCS: 81001; 87086

== ENCOUNTER → 2024-06-17 | Outpatient (REF) | payer MEDICARE, MEDICAID, SELFPAY ==
[2024-06-17 09:09] LABS: Hematocrit 41.8 % (40-54); Mean Corp Hgb Conc 33.5 g/dL (32-36); Mean Corpuscular Hgb 31.7 pg (27.0-32.0); Mean Corpuscular Volume 94.8 fL (80-94); Mean Platelet Vol. 11.2 fl (6.2-12.0); Platelet Count 185 K/mm3 (150-450); RBC Distribution Width CV 13.2 % (11.6-14.6); RBC Distribution Width SD 45.4 fl (35.1-43.9); Red Blood Count 4.41 M/mm3 (4.6-6.2); White Blood Count 7.5 K/mm3 (4.4-11.0)
[2024-06-17 09:25] LABS: Hemoglobin A1c 7.8 % (3.8-5.6)
== END ==
LOC: OLS.SWAL 06:15
PROVIDERS: PCP Internal Medicine; Visit Provider Internal Medicine
DX: R73.03 Prediabetes (principal); F20.2 Catatonic schizophrenia
CPT/HCPCS: 36415; 83036; 85027

== ENCOUNTER → 2024-07-15 | Outpatient (REF) | payer MEDICARE, MEDICAID, SELFPAY ==
[2024-07-15 10:52] LABS: Absolute Neutrophil Count 4.9 X10^3/uL (2.0-7.7); Basophil# 0.04 X10^3/uL; Basophil% 0.6 % (0-1); Eosinophil# 0.19 X10^3/uL; Eosinophils% 2.6 % (0-5); Hematocrit 44.4 % (40-54); Hemoglobin 14.7 g/dL (13.0-16.5); Lymphocyte % 20.7 % (19-41); Mean Corp Hgb Conc 33.1 g/dL (32-36); Mean Corpuscular Hgb 31.6 pg (27.0-32.0); Mean Corpuscular Volume 95.5 fL (80-94); Mean Platelet Vol. 11.1 fl (6.2-12.0); Monocyte# 0.53 X10^3/uL; Monocyte% 7.3 % (0-10); NRBC Flagged by Analyzer 0 % (0-5); Neutrophil # 4.87 X10^3/uL (2.7-7.7); Neutrophil % 67.3 % (47-70); Platelet Count 176 K/mm3 (150-450); RBC Distribution Width CV 13.1 % (11.6-14.6); RBC Distribution Width SD 46.3 fl (35.1-43.9); Red Blood Count 4.65 M/mm3 (4.6-6.2); White Blood Count 7.2 K/mm3 (4.4-11.0)
[2024-07-15 11:34] LABS: Hemoglobin A1c 8.2 % (3.8-5.6)
== END ==
LOC: OLS.SWAL 05:00
PROVIDERS: PCP Internal Medicine; Visit Provider Internal Medicine
DX: I10 Essential (primary) hypertension (principal); E78.5 Hyperlipidemia, unspecified; Z79.899 Other long term (current) drug therapy
CPT/HCPCS: 36415; 83036; 85025

== ENCOUNTER → 2024-07-22 | Outpatient (REF) | payer MEDICARE, MEDICAID, SELFPAY ==
[2024-07-22 09:43] LABS: Anion Gap 9 (5-15); BUN 19 mg/dL (7-18); BUN/Creat Ratio 18.1 RATIO (10-20); Calcium,Total 8.9 mg/dL (8.5-10.1); Chloride 105 mmol/L (98-107); Creatinine, Serum 1.05 mg/dL (0.70-1.30); EST Glomerular Filtration Rate 74 mL/min (>60); Est Glom Filt Rate - Afr Amer 90 mL/min (>60); Glucose 183 mg/dL (74-106); Potassium 4.2 mmol/L (3.5-5.1); Sodium Level 137 mmol/L (136-145)
== END ==
LOC: OLS.SWAL 05:00
PROVIDERS: PCP Internal Medicine; Visit Provider Internal Medicine
DX: E11.9 Type 2 diabetes mellitus without complications (principal)
CPT/HCPCS: 36415; 80048

== ENCOUNTER → 2024-08-12 | Outpatient (REF) | payer MEDICARE, SELFPAY ==
[2024-08-12 08:17] LABS: Absolute Lymphocyte Count 1.93 X10^3/uL (0.83-4.51); Absolute Neutrophil Count 4.4 X10^3/uL (2.0-7.7); Basophil# 0.03 X10^3/uL; Basophil% 0.4 % (0-1); Eosinophils% 2.8 % (0-5); Hematocrit 41.6 % (40-54); Hemoglobin 14.2 g/dL (13.0-16.5); Lymphocyte # 1.93 X10^3/ul (0.83-4.51); Lymphocyte % 26.8 % (19-41); Mean Corp Hgb Conc 34.1 g/dL (32-36); Mean Corpuscular Hgb 32.3 pg (27.0-32.0); Mean Corpuscular Volume 94.8 fL (80-94); Mean Platelet Vol. 11.3 fl (6.2-12.0); Monocyte# 0.55 X10^3/uL; Monocyte% 7.6 % (0-10); NRBC Flagged by Analyzer 0 % (0-5); Neutrophil # 4.41 X10^3/uL (2.7-7.7); Neutrophil % 61.3 % (47-70); Platelet Count 155 K/mm3 (150-450); RBC Distribution Width CV 12.9 % (11.6-14.6); RBC Distribution Width SD 44.2 fl (35.1-43.9); Red Blood Count 4.39 M/mm3 (4.6-6.2); White Blood Count 7.2 K/mm3 (4.4-11.0)
[2024-08-12 09:30] LABS: Hemoglobin A1c 7.8 % (3.8-5.6)
== END ==
LOC: OLS.SWAL 05:00
PROVIDERS: PCP Internal Medicine; Visit Provider Internal Medicine
DX: I10 Essential (primary) hypertension (principal); Z79.899 Other long term (current) drug therapy
CPT/HCPCS: 36415; 83036; 85025

== ENCOUNTER → 2024-09-09 | Outpatient (REF) | payer MEDICARE, MEDICAID, SELFPAY ==
[2024-09-09 09:41] LABS: Absolute Lymphocyte Count 1.72 X10^3/uL (0.83-4.51); Absolute Neutrophil Count 4.7 X10^3/uL (2.0-7.7); Basophil# 0.04 X10^3/uL; Basophil% 0.6 % (0-1); Eosinophils% 2.8 % (0-5); Hematocrit 42.2 % (40-54); Hemoglobin 14.3 g/dL (13.0-16.5); Lymphocyte # 1.72 X10^3/ul (0.83-4.51); Lymphocyte % 23.7 % (19-41); Mean Corp Hgb Conc 33.9 g/dL (32-36); Mean Corpuscular Hgb 31.6 pg (27.0-32.0); Mean Corpuscular Volume 93.4 fL (80-94); Mean Platelet Vol. 10.9 fl (6.2-12.0); Monocyte# 0.53 X10^3/uL; Monocyte% 7.3 % (0-10); NRBC Flagged by Analyzer 0 % (0-5); Neutrophil # 4.69 X10^3/uL (2.7-7.7); Neutrophil % 64.5 % (47-70); Platelet Count 160 K/mm3 (150-450); RBC Distribution Width CV 12.9 % (11.6-14.6); RBC Distribution Width SD 43.8 fl (35.1-43.9); Red Blood Count 4.52 M/mm3 (4.6-6.2); White Blood Count 7.3 K/mm3 (4.4-11.0)
== END ==
LOC: OLS.SWAL 04:00
PROVIDERS: PCP Internal Medicine; Referring Provider Internal Medicine; Visit Provider Internal Medicine
DX: Z79.899 Other long term (current) drug therapy (principal)
CPT/HCPCS: 36415; 85025

== ENCOUNTER → 2024-10-07 | Outpatient (REF) | payer MEDICARE, SELFPAY ==
[2024-10-07 08:27] LABS: Absolute Lymphocyte Count 1.51 X10^3/uL (0.83-4.51); Absolute Neutrophil Count 4.5 X10^3/uL (2.0-7.7); Basophil# 0.04 X10^3/uL; Basophil% 0.6 % (0-1); Eosinophil# 0.18 X10^3/uL; Eosinophils% 2.6 % (0-5); Hematocrit 41.6 % (40-54); Hemoglobin 14.4 g/dL (13.0-16.5); Lymphocyte # 1.51 X10^3/ul (0.83-4.51); Lymphocyte % 21.7 % (19-41); Mean Corp Hgb Conc 34.6 g/dL (32-36); Mean Corpuscular Hgb 32.5 pg (27.0-32.0); Mean Corpuscular Volume 93.9 fL (80-94); Mean Platelet Vol. 10.9 fl (6.2-12.0); Monocyte# 0.65 X10^3/uL; Monocyte% 9.4 % (0-10); NRBC Flagged by Analyzer 0 % (0-5); Neutrophil % 64.7 % (47-70); Platelet Count 181 K/mm3 (150-450); RBC Distribution Width CV 13.2 % (11.6-14.6); RBC Distribution Width SD 45.1 fl (35.1-43.9); Red Blood Count 4.43 M/mm3 (4.6-6.2)
== END ==
LOC: OLS.SWAL 04:00
PROVIDERS: PCP Internal Medicine; Referring Provider Internal Medicine; Visit Provider Internal Medicine
DX: Z79.899 Other long term (current) drug therapy (principal)
CPT/HCPCS: 36415; 85025

== ENCOUNTER → 2024-10-14 | Outpatient (REF) | payer MEDICARE, SELFPAY ==
[2024-10-14 08:31] LABS: Cholesterol 165 mg/dL (200); High Density Lipoprotein 30 mg/dL; Triglycerides 328 mg/dL; Very Low Density Lipoprotein 66 mg/dL (5-40)
== END ==
LOC: OLS.SWAL 04:00
PROVIDERS: PCP Internal Medicine; Referring Provider Internal Medicine; Visit Provider Internal Medicine
DX: E78.00 Pure hypercholesterolemia, unspecified (principal)
CPT/HCPCS: 36415; 80061

== ENCOUNTER → 2024-11-04 05:00 | Outpatient (REF) | payer MEDICARE, MEDICAID, SELFPAY ==
[2024-11-04 09:25] LABS: Absolute Lymphocyte Count 1.46 X10^3/uL (0.83-4.51); Absolute Neutrophil Count 5.7 X10^3/uL (2.0-7.7); Basophil# 0.04 X10^3/uL; Basophil% 0.5 % (0-1); Eosinophil# 0.26 X10^3/uL; Eosinophils% 3.2 % (0-5); Hematocrit 40.7 % (40-54); Hemoglobin 13.8 g/dL (13.0-16.5); Lymphocyte # 1.46 X10^3/ul (0.83-4.51); Lymphocyte % 17.9 % (19-41); Mean Corp Hgb Conc 33.9 g/dL (32-36); Mean Corpuscular Hgb 32.6 pg (27.0-32.0); Mean Corpuscular Volume 96.2 fL (80-94); Mean Platelet Vol. 10.7 fl (6.2-12.0); Monocyte# 0.64 X10^3/uL; Monocyte% 7.8 % (0-10); NRBC Flagged by Analyzer 0 % (0-5); Neutrophil # 5.69 X10^3/uL (2.7-7.7); Neutrophil % 69.7 % (47-70); Platelet Count 166 K/mm3 (150-450); RBC Distribution Width CV 13.4 % (11.6-14.6); RBC Distribution Width SD 47.6 fl (35.1-43.9); Red Blood Count 4.23 M/mm3 (4.6-6.2); White Blood Count 8.2 K/mm3 (4.4-11.0)
== END ==
LOC: OLS.SWAL 05:00
PROVIDERS: PCP Internal Medicine; Visit Provider Internal Medicine
DX: Z79.899 Other long term (current) drug therapy (principal)
CPT/HCPCS: 36415; 85025

== ENCOUNTER → 2024-11-12 05:00 | Outpatient (REF) | payer MEDICARE, MEDICAID, SELFPAY ==
[2024-11-12 09:46] LABS: Hemoglobin A1c 6.9 % (3.8-5.6)
== END ==
LOC: OLS.SWAL 05:00
PROVIDERS: PCP Internal Medicine; Visit Provider Internal Medicine
DX: R73.03 Prediabetes (principal)
CPT/HCPCS: 36415; 83036

== ENCOUNTER → 2024-12-30 05:00 | Outpatient (REF) | payer MEDICARE, SELFPAY ==
[2024-12-30 09:28] LABS: Absolute Neutrophil Count 5.5 X10^3/uL (2.0-7.7); Basophil# 0.04 X10^3/uL; Basophil% 0.5 % (0-1); Eosinophil# 0.18 X10^3/uL; Eosinophils% 2.3 % (0-5); Hematocrit 41.1 % (40-54); Hemoglobin 13.4 g/dL (13.0-16.5); Mean Corp Hgb Conc 32.6 g/dL (32-36); Mean Corpuscular Hgb 31.3 pg (27.0-32.0); Mean Platelet Vol. 10.7 fl (6.2-12.0); Monocyte# 0.63 X10^3/uL; NRBC Flagged by Analyzer 0 % (0-5); Neutrophil # 5.45 X10^3/uL (2.7-7.7); Neutrophil % 69.2 % (47-70); Platelet Count 197 K/mm3 (150-450); RBC Distribution Width CV 13.1 % (11.6-14.6); Red Blood Count 4.28 M/mm3 (4.6-6.2); White Blood Count 7.9 K/mm3 (4.4-11.0)
== END ==
LOC: OLS.SWAL 05:00
PROVIDERS: PCP Internal Medicine; Visit Provider Internal Medicine
DX: Z79.899 Other long term (current) drug therapy (principal)
CPT/HCPCS: 36415; 85025

== ENCOUNTER → 2025-01-28 | Outpatient (REF) | payer MEDICARE, SELFPAY ==
[2025-01-28 09:12] LABS: Absolute Lymphocyte Count 1.71 X10^3/uL (0.83-4.51); Absolute Neutrophil Count 4.9 X10^3/uL (2.0-7.7); Basophil# 0.04 X10^3/uL; Basophil% 0.5 % (0-1); Eosinophil# 0.22 X10^3/uL; Eosinophils% 2.9 % (0-5); Hematocrit 41.1 % (40-54); Hemoglobin 14.1 g/dL (13.0-16.5); Lymphocyte # 1.71 X10^3/ul (0.83-4.51); Lymphocyte % 22.7 % (19-41); Mean Corp Hgb Conc 34.3 g/dL (32-36); Mean Corpuscular Hgb 32.3 pg (27.0-32.0); Mean Corpuscular Volume 94.1 fL (80-94); Mean Platelet Vol. 10.9 fl (6.2-12.0); Monocyte# 0.58 X10^3/uL; Monocyte% 7.7 % (0-10); NRBC Flagged by Analyzer 0 % (0-5); Neutrophil # 4.87 X10^3/uL (2.7-7.7); Neutrophil % 64.7 % (47-70); Platelet Count 192 K/mm3 (150-450); RBC Distribution Width CV 12.9 % (11.6-14.6); Red Blood Count 4.37 M/mm3 (4.6-6.2); White Blood Count 7.5 K/mm3 (4.4-11.0)
== END ==
LOC: OLS.SWAL 05:00
PROVIDERS: PCP Internal Medicine; Visit Provider Internal Medicine
DX: Z79.899 Other long term (current) drug therapy (principal)
CPT/HCPCS: 36415; 85025

== ENCOUNTER → 2025-02-05 | Outpatient (REF) | payer MEDICARE, SELFPAY ==
[2025-02-05 09:28] LABS: Bacteria 0 SEEN /hpf (None Seen); Mucous, Urine 0 SEEN /hpf (<or=2+); Red Blood Cells-Urine 0 SEEN /hpf (0-5)
[2025-02-05 10:10] LABS: Color, Urine Yellow (Yellow); Glucose, Dipstick 100 mg/dl (Normal); Ketone-Dipstick 15 mg/dl (Negative); Leukocyte Esterase-Dipstick 25 /ul (Negative); Nitrite-Dipstick Negative (Negative); Occult Blood-Urine Negative /ul (Negative); Protein-Dipstick 30 mg/dl (Negative); Urine Bilirubin Dipstick Negative (Negative); Urine Clarity Clear (Clear); Urine Urobilinogen 1 mg/dl (Normal)
[2025-02-05 10:35] LABS: Squamous Epithelial Cells - UA 0-5 SEEN /hpf (0-5); White Blood Cells 0-5 SEEN /hpf (0-5)
== END ==
LOC: OLS.SWAL 05:00
PROVIDERS: PCP Internal Medicine; Visit Provider Internal Medicine
DX: H53.8 Other visual disturbances (principal); R39.9 Unspecified symptoms and signs involving the genitourinary system
CPT/HCPCS: 81001; 87086; 87088

== ENCOUNTER → 2025-02-06 05:00 | Outpatient (REF) | payer MEDICARE, SELFPAY ==
[2025-02-06 08:31] LABS: Hemoglobin 13.7 g/dL (13.0-16.5); Mean Corp Hgb Conc 34.3 g/dL (32-36); Mean Corpuscular Hgb 32.4 pg (27.0-32.0); Mean Corpuscular Volume 94.6 fL (80-94); Platelet Count 180 K/mm3 (150-450); RBC Distribution Width CV 13.2 % (11.6-14.6); RBC Distribution Width SD 45.1 fl (35.1-43.9); Red Blood Count 4.23 M/mm3 (4.6-6.2); White Blood Count 8.3 K/mm3 (4.4-11.0)
[2025-02-06 08:53] LABS: ALB/GLOB Ratio 1.6 RATIO (0.9-2.4); AST(SGOT) 33 U/L (<=37); Alanine Aminotransfer ALT/SGPT 43 U/L (<=46); Albumin, Serum 4.3 g/dL (3.4-4.8); Alkaline Phosphatase 80 U/L (40-129); Anion Gap 17 (5-15); BUN 35 mg/dL (4-19); Calcium,Total 8.8 mg/dL (7.6-11.0); Carbon Dioxide 18.2 mmol/L (21.0-32.0); Chloride 107 mmol/L (98-108); Creatinine, Serum 1.51 mg/dL (0.70-1.20); EST Glomerular Filtration Rate 50 (>60); Globulin 2.7 g/dL (2.2-4.2); Glucose 146 mg/dL (70-99); Potassium 4.2 mmol/L (3.3-5.1); Protein, Total 6.9 g/dL (5.9-8.4); Sodium Level 142 mmol/L (133-145); Total Bilirubin 0.35 mg/dL (0.00-1.30)
== END ==
LOC: OLS.SWAL 05:00
PROVIDERS: PCP Internal Medicine; Visit Provider Internal Medicine
DX: H53.8 Other visual disturbances (principal)
CPT/HCPCS: 36415; 80053; 85027

== ENCOUNTER → 2025-02-14 07:58 | Outpatient (REF) | payer MEDICARE, SELFPAY ==
[2025-02-14 09:07] LABS: Anion Gap 14 (5-15); BUN 16 mg/dL (4-19); BUN/Creat Ratio 17.5 RATIO (10-20); Calcium,Total 9.1 mg/dL (7.6-11.0); Carbon Dioxide 20.5 mmol/L (21.0-32.0); Chloride 107 mmol/L (98-108); Creatinine, Serum 0.92 mg/dL (0.70-1.20); EST Glomerular Filtration Rate 90 (>60); Glucose 166 mg/dL (70-99); Potassium 4.2 mmol/L (3.3-5.1); Sodium Level 141 mmol/L (133-145)
== END ==
LOC: OLS.SWAL 07:58
PROVIDERS: PCP Internal Medicine; Visit Provider Internal Medicine
DX: E11.9 Type 2 diabetes mellitus without complications (principal)
CPT/HCPCS: 36415; 80048; 83036

== ENCOUNTER → 2025-02-25 | Outpatient (REF) | payer MEDICARE, SELFPAY ==
[2025-02-25 09:28] LABS: Absolute Lymphocyte Count 1.82 X10^3/uL (0.83-4.51); Basophil# 0.06 X10^3/uL; Basophil% 0.9 % (0-1); Hemoglobin 13.7 g/dL (13.0-16.5); Lymphocyte # 1.82 X10^3/ul (0.83-4.51); Lymphocyte % 27.3 % (19-41); Mean Corp Hgb Conc 35.1 g/dL (32-36); Mean Corpuscular Hgb 32.4 pg (27.0-32.0); Mean Corpuscular Volume 92.2 fL (80-94); Mean Platelet Vol. 10.7 fl (6.2-12.0); Monocyte# 0.54 X10^3/uL; Monocyte% 8.1 % (0-10); NRBC Flagged by Analyzer 0 % (0-5); Neutrophil # 3.95 X10^3/uL (2.7-7.7); Neutrophil % 59.3 % (47-70); Platelet Count 165 K/mm3 (150-450); RBC Distribution Width CV 13.1 % (11.6-14.6); RBC Distribution Width SD 44.2 fl (35.1-43.9); Red Blood Count 4.23 M/mm3 (4.6-6.2); White Blood Count 6.7 K/mm3 (4.4-11.0)
== END ==
LOC: OLS.SWAL 04:00
PROVIDERS: PCP Internal Medicine; Visit Provider Internal Medicine
DX: Z79.899 Other long term (current) drug therapy (principal)
CPT/HCPCS: 36415; 85025

== ENCOUNTER → 2025-03-25 | Outpatient (REF) | payer MEDICARE, SELFPAY ==
[2025-03-25 08:31] LABS: Absolute Lymphocyte Count 2.11 X10^3/uL (0.83-4.51); Absolute Neutrophil Count 6.1 X10^3/uL (2.0-7.7); Basophil# 0.05 X10^3/uL; Basophil% 0.5 % (0-1); Eosinophil# 0.22 X10^3/uL; Eosinophils% 2.3 % (0-5); Hematocrit 41.3 % (40-54); Hemoglobin 14.1 g/dL (13.0-16.5); Lymphocyte # 2.11 X10^3/ul (0.83-4.51); Lymphocyte % 22.4 % (19-41); Mean Corp Hgb Conc 34.1 g/dL (32-36); Mean Corpuscular Hgb 32.3 pg (27.0-32.0); Mean Corpuscular Volume 94.5 fL (80-94); Mean Platelet Vol. 10.9 fl (6.2-12.0); Monocyte# 0.82 X10^3/uL; Monocyte% 8.7 % (0-10); NRBC Flagged by Analyzer 0 % (0-5); Neutrophil # 6.09 X10^3/uL (2.7-7.7); Neutrophil % 64.5 % (47-70); Platelet Count 178 K/mm3 (150-450); RBC Distribution Width CV 12.9 % (11.6-14.6); RBC Distribution Width SD 44.4 fl (35.1-43.9); Red Blood Count 4.37 M/mm3 (4.6-6.2); White Blood Count 9.4 K/mm3 (4.4-11.0)
== END ==
LOC: OLS.SWAL 07:10
PROVIDERS: PCP Internal Medicine; Visit Provider Internal Medicine
DX: Z79.899 Other long term (current) drug therapy (principal)
CPT/HCPCS: 36415; 85025

== ENCOUNTER → 2025-04-14 05:00 | Outpatient (REF) | payer MEDICARE, SELFPAY ==
--- OUTSIDE RECORDS SUMMARY | 2025-04-14 04:54 | XMS RPT_ITS | CCD ---
Author Organization [facility] ion [facility] SEWING PATTERN LAYOUT TECHNICIAN [facility] Care Team Providers Care Vascular Radiologist Name Role Phone ZMEILI Unavailable Unavailable Dy, Bertrand Unavailable Unavailable Dy, Bertrand Unavailable Unavailable SARAH ROB Unavailable Unavailable IMCA Unavailable Unavailable MAYANK, KEVIN Unavailable Unavailable MAYANK, KEVIN Unavailable Unavailable ESMER PILLAI Unavailable Unavailable Esmer Pillai (Digital Community Manager.Fermenter Operator) Primary Care Pr ovider Soo Montesinos Primary Care Provider Dr. Lynn Zurita MD Primary Care Provider Dr. Lynn Colvin MD Attending Provider Unavaila ble Gudla, Lynn Primary Care Unavailable Gudla Lynn KHANNA Attending Unavailable Gudla, Lynn Primary Care Unavailable Gudla Lynn KHANNA Attending Unavailable Gudla, Lynn Primary Care Unavailable Gudla Lynn KHANNA Attending Unavailable Gudla Lynn KHANNA Referring Unavailable Gudla Lynn KHANNA Referring Unavailable Gudla, Lynn Primary Care Unavailable Gudla Lynn KHANNA Attending Unavailable Gudla Lisa KHANNAyothi Attending Unavailable Gudla, Lynn Primary Care Unavailable Gudla, Lynn Primary Care Unavailable Gudla Lynn KHANNA Attending Unavailable Gudla, Lynn Primary Care Unavailable Gudla Lisa KHANNAyothi Attending Unavailable Gudla Lisa KHANNAyothi Referring Unavailable Gudla, Lynn Primary Care Unavailable Gudla Lynn KHANNA Attending Unavailable Gudla, Lynn Primary Care Unavailable Gudla Lynn KHANNA Attending Unavailable Gudla Lisa KHANNAyothi Referring Unavailable Gudla, Lynn Primary Care Unavailable Gudla OLS, Lynn Attending Unavailable Gudla, Lynn Primary Care Unavailable Gudla OLS, Lynn Attending Unavailable Gudla, Lynn Primary Care Unavailable Gudla OLS, Lynn Attending Unavailable Gudla OLS, Lynn Attending Unavailable Gudla, Lynn Primary Care Unavailable Gudla, Lynn Primary Care Unavailable Gudla OLS, Lynn Attending Unavailable Gudla, Lynn Primary Care Unavailable Gudla OLS, Lynn Attending Unavailable Gudla, Lynn Primary Care Unavailable Gudla OLS, Lynn Attending Unavailable Gudla OLS, Lynn Referring Unavailable Gudla, Lynn Primary Care Unavailable Gudla OLS, Lynn Attending Unavailable Gudla, Lynn Primary Care Unavailable Gudla OLS, Lynn Attending Unavailable Gudla, Lynn Primary Care Unavailable Gudla OLS, Lynn Attending Unavailable Gudla, Lynn Primary Care Unavailable Gudla OLS, Lynn Attending Unavailable Allergies Allergy Classification Reported Allergen(s) Allergy Type Date of Onset Reaction(s) Facility Penicillins (antibiotic) (1 source) Penicillins Drug Allergy 6 Other: See Comments [facility] (3 sources) Penicillins; Translations: [PENICILLINS] Propensity to adverse reactions (disorder) 6 Other: See Comments [facility] Repository Medications Completed/Discontinued Medications Medication Drug Class(es) Dates Sig (Normalized) Sig (Original) allopurinol 100 mg oral tablet (2 sources) Xanthine Oxidase Inhibitor Start: 02-01-2021 take 1 tablet by mouth once daily allopurinol (ZYLOPRIM) 100 mg tablet Take 1 tablet by mouth once daily. 0 02/01/2021 Active Comment on above: Take 1 tablet by jasen th once daily. ARIPiprazole 20 mg oral tablet (3 sources) Atypical Antipsychotic take 1 tablet by mouth once daily ARIPiprazole (ABILIFY) 20 mg tablet Take 20 mg by mouth once daily. 0 Active Comment on above: Take 20 mg by mouth once daily. carvedilol 6.25 mg oral tablet (5 sources) alpha-Adrenergic Rajwinder, beta-Adrenergic Rajwinder Start: 02-16-2021 End: 01-11-2022 take 1 tablet by mouth twice daily at mealtime carvedilol (COREG) 6.25 mg tablet TAKE 1 TABLET BY MOUTH TWICE A DAY WITH MEALS 180 tablet 3 01/11/2022 Active Start: 12-19-2019 End: 12-03-2020 take 1 tablet by mouth twice daily carvedilol (COREG) 6.25 mg tablet GIVE 1 TABLET BY MOUTH TWICE DAILY (8A/8P) 180 tablet 3 12/19/2019 12/03/2020 Discontinued Comment on above: GIVE 1 TABLET BY JASEN TH TWICE DAILY (8A8P) Take 1 tablet by jasen th twice daily with meals. TAKE 1 TABLET BY JASEN TH TWICE A DAY (8A8P) TAKE 1 TABLET BY JASEN TH TWICE A DAY WITH MEALS cholecalciferol 0.05 mg oral tablet (3 sources) Vitamin D take 1 tablet by mouth once daily cholecalciferol (VITAMIN D-3) 2,000 unit tablet Take 2,000 Units by mouth once daily. 0 Active Comment on above: Take 2,000 Units by mouth once daily. clopidogrel 75 mg oral tablet (3 sources) P2Y12 Platelet Inhibitor take 1 tablet by mouth once daily clopidogrel (PLAVIX) 75 mg tablet Take 75 mg by mouth once daily. 0 Active Comment on above: Take 75 mg by mouth once daily. cloZAPine 100 mg oral tablet (3 sources) Atypical Antipsychotic take 3 tablets by mouth once daily cloZAPine (CLOZARIL) 100 mg tablet Take 100 mg by mouth once daily. Takes 3 at night 0 Active Comment on above: Take 100 mg by mouth once daily. Takes 3 at night docusate sodium 100 mg oral tablet (3 sources) take 1 tablet by mouth once daily Docusate Sodium 100 mg tab Take 100 mg by mouth once daily. 0 Active Comment on above: Take 100 mg by mouth once daily. levothyroxine sodium 0.05 mg oral capsule (3 sources) l-Thyroxine Levothyroxine 50 mcg cap Take 75 mcg by mouth once daily. 0 Active take 1 capsule by mouth once ace ly Levothyroxine 50 mcg cap Take 50 mcg by mouth once daily. 0 Active Comment on above: Take 50 mcg by mouth once daily. Take 75 mcg by mouth once daily. lisinopril 5 mg oral tablet (5 sources) Angiotensin Converting Enzyme Inhibitor Start: 02-16-2021 End: 01-11-2022 take 1 tablet by mouth once daily lisinopril (ZESTRIL, PRINIVIL) 5 mg tablet TAKE 1 TABLET BY MOUTH DAILY 90 tablet 3 01/11/2022 Active Start: 12-19-2019 End: 12-03-2020 take 1 tablet by mouth once daily lisinopril (ZESTRIL, PRINIVIL) 5 mg tablet Take 1 tablet by mouth once daily. 90 tablet 3 12/19/2019 12/03/2020 Discontinued Comment on above: Take 1 tablet by jasen th once daily. TAKE 1 TABLET BY JASEN TH DAILY 24 hr metFORMIN hydrochloride 500 mg extended release oral tablet (2 sources) Biguanide Start: 1 take 1 tablet by mouth once daily metFORMIN ER (GLUCOPHAGE XR) 500 mg 24 hr tablet Take 1 tablet by mouth once daily. 0 02/01/2021 Active Comment on above: Take 1 tablet by jasen th once daily. MULTIVITAMIN ORAL (3 sources) take 1 tablet by mouth once daily MULTIVITAMIN ORAL Take 1 tablet by mouth once daily. 0 Active Comment on above: Take 1 tablet by jasen th once daily. pantoprazole 40 mg delayed release oral tablet (3 sources) Proton Pump Inhibitor pantoprazole DR (PROTONIX) 40 mg tablet Take 20 mg by mouth once daily. 0 Active take 1 tablet by mouth once german y pantoprazole DR (PROTONIX) 40 mg tablet Take 40 mg by mouth once daily. 0 Active Comment on above: Take 40 mg by mouth once daily. Take 20 mg by mouth once daily. pravastatin sodium 40 mg oral tablet (3 sources) HMG-CoA Reductase Inhibitor take 1 tablet by mouth once daily pravastatin (PRAVACHOL) 40 mg tablet Take 40 mg by mouth once daily. 0 Active Comment on above: Take 40 mg by mouth once daily. THERAPY M 9 mg iron-400 mcg tablet (3 sources) Start: 04-07-2017 THERAPY M 9 mg iron-400 mcg tablet Problems Active Problems Problem Classification Problem Date Documented Da te Episodic/Chronic Blindness and vision defects (1 source) Other visual disturbances; Translations: [Other visual disturbances] Onset: 03-06-2025 Episodic Cardiac and circulatory congenital anomalies (1 source) Other malformations of precerebral vessels; Translations: [Other malformations of precerebral vessels] Onset: 01-06-2025 Chronic Cardiac dysrhythmias (3 sources) Paroxysmal ventricular tachycardia; [...] Coronary arteriosclerosis; Translations: [Coronary atherosclerosis] 06-09-2016 Chronic Diabetes mellitus without complication (1 source) Type 2 diabetes mellitus without complications; Translations: [Type 2 diabetes mellitus without complications] Onset: 03-06-2025 Chronic Diabetes mellitus without complication (2 sources) Prediabetes; Translations: [Prediabetes] Onset: 11-24-2024 Episodic Disorders of lipid metabolism (5 sources) Hyperlipidemia; Translations: [Hyperlipidemia, unspecified] Onset: 11-01-2024 06-09-2016 Chronic Essential hypertension (4 sources) Essential hypertension; Translations: [Essential (primary) hypertension] Onset: 11-01-2024 06-09-2016 Chronic Other aftercare (2 sources) Other [employer] (current) drug therapy; Translations: [Other [employer] (current) drug therapy] Onset: 11-24-2024 Episodic Nicolette-; endo-; and myocarditis; cardiomyopathy (except that caused by tuberculosis or sexually transmitted disease) (3 sources) Cardiomyopathy; Translations: [Cardiomyopathy, unspecified] 06-09-2016 Chronic Schizophrenia and other psychotic disorders (4 sources) Schizophrenia; Translations: [Schizophrenia, unspecified] Onset: 07-17-2024 06-09-2016 Chronic Thyroid disorders (5 sources) Nontoxic multinodular goiter; Translations: [Acquired hypothyroidism] Onset: 02-26-2018 06-09-2016 Chronic Unclassified (1 source) Unknown / UNK(Unknown) Onset: 03-14-2018 Past or Other Problems Problem Classification Problem Date Documented Da te Episodic/Chronic Unclassified (1 source) CARD Follow Up Annual Onset: 03-14-2018 Urinary tract infections (1 source) Urinary tract infection, site not specified; Translations: [Urinary tract infection, site not specified] Onset: 11-01-2024 Episodic Results Test Name Value Interpretation Reference Range Facility CBC W/Diff, Automatedon 03-07 Absolute Lymph 2.11 X10 3/uL Normal 0.83-4.51 [facility] Comment on above: Performed By: #### L 400.0001, M100.2200, L500.4050, L100.0500 #### [facility] [address] [place], [address] Absolute Neut 6.1 X10 3/uL Normal 2.0-7.7 [facility] Comment on above: Performed By: #### L 400.0001, M100.2200, L500.4050, L100.0500 #### [facility] [address] [place], [address] Basophils/100 WBC (Bld) 0.5 % Normal 0-1 [facility] Comment on above: Performed By: #### L 400.0001, M100.2200, L500.4050, L100.0500 #### [facility] [address] [place], [address] Eosinophils/100 WBC (Bld) 2.3 % Normal 0-5 [facility] Comment on above: Performed By: #### L 400.0001, M100.2200, L500.4050, L100.0500 #### [facility] [address] [place], [address] Erythrocyte distribution width (RBC) [Ratio] 12.9 % Normal 11.6-14.6 [facility] Comment on above: Performed By: #### L 400.0001, M100.2200, L500.4050, L100.0500 #### [facility] [address] [place], [address] Hematocrit (Bld) [Volume fraction] 41.3 % Normal 40-54 [facility] Comment on above: Performed By: #### L 400.0001, M100.2200, L500.4050, L100.0500 #### [facility] [address] [place], [address] Hemoglobin (Bld) [Mass/Vol] 14.1 g/dL Normal 13.0-16.5 [facility] Comment on above: Performed By: #### L 400.0001, M100.2200, L500.4050, L100.0500 #### [facility] [address] [place], [address] IG% 1.600 High 0.0-0.9 [facility] Comment on above: Result Comment: IG% - Immature Granulocytes (promyelocytes, myelocytes and metamyelocytes) > 1% indicates that a LEFT SHIFT is Present. Performed By: #### L 400.0001, M100.2200, L500.4050, L100.0500 #### [facility] [address] [place], [address] Lymphocytes/100 WBC (Bld) 22.4 % Normal 19-41 [facility] Comment on above: Performed By: #### L 400.0001, M100.2200, L500.4050, L100.0500 #### [facility] [address] [place], [address] MCH (RBC) [Entitic mass] 32.3 pg High 27.0-32.0 [facility] Comment on above: Performed By: #### L 400.0001, M100.2200, L500.4050, L100.0500 #### [facility] [address] [place], [address] MCHC (RBC) [Mass/Vol] 34.1 g/dL Normal 32-36 [facility] Comment on above: Performed By: #### L 400.0001, M100.2200, L500.4050, L100.0500 #### [facility] [address] [place], [address] MCV (RBC) [Entitic vol] 94.5 fL High 80-94 [facility] Comment on above: Performed By: #### L 400.0001, M100.2200, L500.4050, L100.0500 #### [facility] [address] [place], [address] Monocytes/100 WBC (Bld) 8.7 % Normal 0-10 [facility] Comment on above: Performed By: #### L 400.0001, M100.2200, L500.4050, L100.0500 #### [facility] [address] [place], [address] Neutrophils/100 WBC (Bld) 64.5 % Normal 47-70 [facility] Comment on above: Performed By: #### L 400.0001, M100.2200, L500.4050, L100.0500 #### [facility] [address] [place], [address] Nucleated RBC (Bld) [#/Vol] 0 10*3/uL Normal 0-5 [facility] Comment on above: Performed By: #### L 400.0001, M100.2200, L500.4050, L100.0500 #### [facility] [address] [place], [address] Platelet mean volume (Bld) [Entitic vol] 10.9 fL Normal 6.2-12.0 [facility] Comment on above: Performed By: #### L 400.0001, M100.2200, L500.4050, L100.0500 #### [facility] [address] [place], [address] Platelets (Bld) [#/Vol] 178 10*3/uL Normal 150-450 [facility] Comment on above: Performed By: #### L 400.0001, M100.2200, L500.4050, L100.0500 #### [facility] [address] [place], [address] RBC (Bld) [#/Vol] 4.37 10*6/uL Low 4.6-6.2 [facility] Comment on above: Performed By: #### L 400.0001, M100.2200, L500.4050, L100.0500 #### [facility] [address] [place], [address] RDW SD 44.4 fl High 35.1-43.9 [facility] Comment on above: Performed By: #### L 400.0001, M100.2200, L500.4050, L100.0500 #### [facility] [address] [place], [address] WBC (Bld) [#/Vol] 9.4 10*3/uL Normal 4.4-11.0 [facility] Comment on above: Performed By: #### L 400.0001, M100.2200, L500.4050, L100.0500 #### [facility] [address] [place], [address] Absolute neutrophil countOrd ered By: Lynn Zurita on 02-25-2025 Neutrophils (Bld) [#/Vol] 4.0 10*3/uL 2.0-7.7 [facility] Basophil percentageOrdered B y: Lynn Zurita on 02-25-2025 Basophils/100 WBC (Bld) 0.9 % 0-1 [facility] CBC W/Diff, Automatedon 04- Absolute Lymph 1.82 X10 3/uL Normal 0.83-4.51 [facility] Comment on above: Order Comment: 101 Performed By: #### L 400.0001, M100.2200, L500.4050, L100.0500 #### [facility] [address] [place], [address] Absolute Neut 4.0 X10 3/uL Normal 2.0-7.7 [facility] Comment on above: Order Comment: 101 Performed By: #### L 400.0001, M100.2200, L500.4050, L100.0500 #### [facility] [address] [place], [address] Basophils/100 WBC (Bld) 0.9 % Normal 0-1 [facility] Comment on above: Order Comment: 101 Performed By: #### L 400.0001, M100.2200, L500.4050, L100.0500 #### [facility] [address] [place], [address] Eosinophils/100 WBC (Bld) 3.0 % Normal 0-5 [facility] Comment on above: Order Comment: 101 Performed By: #### L 400.0001, M100.2200, L500.4050, L100.0500 #### [facility] [address] [place], [address] Erythrocyte distribution width (RBC) [Ratio] 13.1 % Normal 11.6-14.6 [facility] Comment on above: Order Comment: 101 Performed By: #### L 400.0001, M100.2200, L500.4050, L100.0500 #### [facility] [address] [place], [address] Hematocrit (Bld) [Volume fraction] 39.0 % Low 40-54 [facility] Comment on above: Order Comment: 101 Performed By: #### L 400.0001, M100.2200, L500.4050, L100.0500 #### [facility] [address] [place], [address] Hemoglobin (Bld) [Mass/Vol] 13.7 g/dL Normal 13.0-16.5 [facility] Comment on above: Order Comment: 101 Performed By: #### L 400.0001, M100.2200, L500.4050, L100.0500 #### [facility] [address] [place], [address] IG% 1.400 High 0.0-0.9 [facility] Comment on above: Order Comment: 101 Result Comment: IG% - Immature Granulocytes (promyelocytes, myelocytes and metamyelocytes) > 1% indicates that a LEFT SHIFT is Present. Performed By: #### L 400.0001, M100.2200, L500.4050, L100.0500 #### [facility] [address] [place], [address] Lymphocytes/100 WBC (Bld) 27.3 % Normal 19-41 [facility] Comment on above: Order Comment: 101 Performed By: #### L 400.0001, M100.2200, L500.4050, L100.0500 #### [facility] [address] [place], [address] MCH (RBC) [Entitic mass] 32.4 pg High 27.0-32.0 [facility] Comment on above: Order Comment: 101 Performed By: #### L 400.0001, M100.2200, L500.4050, L100.0500 #### [facility] [address] [place], [address] MCHC (RBC) [Mass/Vol] 35.1 g/dL Normal 32-36 [facility] Comment on above: Order Comment: 101 Performed By: #### L 400.0001, M100.2200, L500.4050, L100.0500 #### [facility] [address] [place], [address] MCV (RBC) [Entitic vol] 92.2 fL Normal 80-94 [facility] Comment on above: Order Comment: 101 Performed By: #### L 400.0001, M100.2200, L500.4050, L100.0500 #### [facility] [address] [place], [address] Monocytes/100 WBC (Bld) 8.1 % Normal 0-10 [facility] Comment on above: Order Comment: 101 Performed By: #### L 400.0001, M100.2200, L500.4050, L100.0500 #### [facility] [address] [place], [address] Neutrophils/100 WBC (Bld) 59.3 % Normal 47-70 [facility] Comment on above: Order Comment: 101 Performed By: #### L 400.0001, M100.2200, L500.4050, L100.0500 #### [facility] [address] [place], [address] Nucleated RBC (Bld) [#/Vol] 0 10*3/uL Normal 0-5 [facility] Comment on above: Order Comment: 101 Performed By: #### L 400.0001, M100.2200, L500.4050, L100.0500 #### [facility] [address] [place], [address] Platelet mean volume (Bld) [Entitic vol] 10.7 fL Normal 6.2-12.0 [facility] Comment on above: Order Comment: 101 Performed By: #### L 400.0001, M100.2200, L500.4050, L100.0500 #### [facility] [address] [place], [address] Platelets (Bld) [#/Vol] 165 10*3/uL Normal 150-450 [facility] Comment on above: Order Comment: 101 Performed By: #### L 400.0001, M100.2200, L500.4050, L100.0500 #### [facility] [address] [place], [address] RBC (Bld) [#/Vol] 4.23 10*6/uL Low 4.6-6.2 [facility] Comment on above: Order Comment: 101 Performed By: #### L 400.0001, M100.2200, L500.4050, L100.0500 #### [facility] [address] [place], [address] RDW SD 44.2 fl High 35.1-43.9 [facility] Comment on above: Order Comment: 101 Performed By: #### L 400.0001, M100.2200, L500.4050, L100.0500 #### [facility] [address] [place], [address] WBC (Bld) [#/Vol] 6.7 10*3/uL Normal 4.4-11.0 [facility] Comment on above: Order Comment: 101 Performed By: #### L 400.0001, M100.2200, L500.4050, L100.0500 #### [facility] [address] [place], [address] Eosinophil percentageOrdered By: Lynn Zurita on 02-25-2025 Eosinophils/100 WBC (Bld) 3.0 % 0-5 [facility] Erythrocyte distribution wid th (RBC) [Ratio]Ordered By: Lynn Zurita on 02-25-2025 Erythrocyte distribution width (RBC) [Entitic vol] 44.2 fL High 35.1-43.9 [facility] Erythrocyte distribution wid th ratioOrdered By: Lynn Zurita on 02-25-2025 Erythrocyte distribution width (RBC) [Ratio] 13.1 % 11.6-14.6 [facility] Hematocrit Auto (Bld) [Volum e fraction]Ordered By: Lynn Zurita on 02-25-2025 Hematocrit (Bld) [Volume fraction] 39.0 % Low 40-54 [facility] Hemoglobin measurementOrdere d By: Lynn Zurita on 02-25-2025 Hemoglobin (Bld) [Mass/Vol] 13.7 g/dL 13.0-16.5 [facility] Immature granulocytes/100 WB C Auto (Bld)Ordered By: Lynn Zurita on 04-22-2025 Immature granulocytes/100 WBC (Bld) 1.400 % High 0.0-0.9 [facility] Comment on above: IG% - Immature Granu locytes (promyelocytes, myelocytes and metamyelocytes) > 1% indicates that a LEFT SHIFT is Present. Lymphocytes Auto (Unsp spec) [#/Vol]Ordered By: Lynn Zurita on 02-25-2025 Lymphocytes (Bld) [#/Vol] 1.82 10*3/uL 0.83-4.51 [facility] Lymphocytes/100 WBC Auto (Un sp spec)Ordered By: Lynn Zurita on 02-25-2025 Lymphocytes/100 WBC (Bld) 27.3 % 19-41 [facility] MCV (mean corpuscular volume ) determinationOrdered By: Lynn Zurita on 02-25-2025 MCV (RBC) [Entitic vol] 92.2 fL 80-94 [facility] Mean corpuscular hemoglobin (MCH) determinationOrdered By: Lynn Zurita on 02-25-2025 MCH (RBC) [Entitic mass] 32.4 pg High 27.0-32.0 [facility] Mean corpuscular hemoglobin concentration (MCHC) determinationOrdered By: Lynn Zurita on 02-25-2025 MCHC (RBC) [Mass/Vol] 35.1 g/dL 32-36 [facility] Mean platelet volume determi nationOrdered By: Lynn Zurita on 02-25-2025 Platelet mean volume (Bld) [Entitic vol] 10.7 fL 6.2-12.0 [facility] Monocyte percentageOrdered B y: Lynn Zurita on 02-25-2025 Monocytes/100 WBC (Bld) 8.1 % 0-10 [facility] Neutrophil percentageOrdered By: Lynn Zurita on 02-25-2025 Neutrophils/100 WBC (Bld) 59.3 % 47-70 [facility] Nucleated red blood cell per centageOrdered By: Lynn Zurita on 02-25-2025 Nucleated RBC/100 WBC (Bld) [Ratio] 0 % 0-5 [facility] Platelet countOrdered By: Radames Zurita on 02-25-2025 Platelets (Bld) [#/Vol] 165 10*3/uL 150-450 [facility] RBC Auto (Bld) [#/Vol]Ordere d By: Lynn Zurita on 02-25-2025 RBC (Bld) [#/Vol] 4.23 10*6/uL Low 4.6-6.2 [facility] White blood cell (WBC) count Ordered By: Lynn Zurita on 02-25-2025 WBC (Bld) [#/Vol] 6.7 10*3/uL 4.4-11.0 [facility] Anion gap in Serum or Plasma Ordered By: Lynn Zurita on 02-14-2025 Anion gap [Moles/Vol] 14 mmol/L 03-20 [facility] BUN/creatinine ratioOrdered By: Lynn Zurita on 02-14-2025 Urea nitrogen/Creatinine [Mass ratio] 17.5 mg/mg 08-25 [facility] Basic Metabolic Profile (BMP )on 02-14-2025 BUN/CRE 17.5 RATIO Normal 08-25 [facility] Comment on above: Order Comment: 101 Performed By: #### L 400.0001, M100.2200, L500.4050, L100.0500 #### [facility] [address] [place], [address] Calcium [Mass/Vol] 9.1 mg/dL Normal 7.6-11.0 [facility] Comment on above: Order Comment: 101 Performed By: #### L 400.0001, M100.2200, L500.4050, L100.0500 #### [facility] [address] [place], [address] Chloride [Moles/Vol] 107 mmol/L Normal 98-108 [place] Comment on above: Order Comment: 101 Performed By: #### L 400.0001, M100.2200, L500.4050, L100.0500 #### [facility] [address] [place], [address] CO2 [Moles/Vol] 20.5 mmol/L Low 21.0-32.0 [facility] Comment on above: Order Comment: 101 Performed By: #### L 400.0001, M100.2200, L500.4050, L100.0500 #### [facility] [address] [place], [address] Creatinine [Mass/Vol] 0.92 mg/dL Normal 0.70-1.20 [facility] Comment on above: Order Comment: 101 Performed By: #### L 400.0001, M100.2200, L500.4050, L100.0500 #### [facility] [address] [place], [address] GAP 14 Normal 5-15 [facility] Comment on above: Order Comment: 101 Performed By: #### L 400.0001, M100.2200, L500.4050, L100.0500 #### [facility] [address] [place], [address] GFR/1.73 sq M.predicted among non-blacks MDRD (S/P/Bld) [Vol rate/Area] 90 mL/min/{1.73_m2} Normal >60 [facility] Comment on above: Order Comment: 101 Result Comment: mL/m in/1.73m2 CKD-EPI Creatinine Equation (2020) Performed By: #### L 400.0001, M100.2200, L500.4050, L100.0500 #### [facility] [address] [place], [address] Glucose [Mass/Vol] 166 mg/dL High 70-99 [facility] Comment on above: Order Comment: 101 Performed By: #### L 400.0001, M100.2200, L500.4050, L100.0500 #### [facility] [address] [place], [address] Potassium [Moles/Vol] 4.2 mmol/L Normal 3.3-5.1 [facility] Comment on above: Order Comment: 101 Performed By: #### L 400.0001, M100.2200, L500.4050, L100.0500 #### [facility] [address] [place], [address] Sodium [Moles/Vol] 141 mmol/L Normal 133-145 [facility] Comment on above: Order Comment: 101 Performed By: #### L 400.0001, M100.2200, L500.4050, L100.0500 #### [facility] [address] [place], [address] Urea nitrogen [Mass/Vol] 16 mg/dL Normal 4-19 [facility] Comment on above: Order Comment: 101 Performed By: #### L 400.0001, M100.2200, L500.4050, L100.0500 #### [facility] [address] [place], [address] Carbon dioxide, total [Moles /volume] in Central venous bloodOrdered By: Lynn Zurita on 02-14-2025 CO2 [Moles/Vol] 20.5 mmol/L Low 21.0-32.0 [facility] Chloride assayOrdered By: Radames Zurita on 02-14-2025 Chloride [Moles/Vol] 107 mmol/L 98-108 [place] GFR/1.73 sq M.predicted tyra g non-blacks MDRD (S/P/Bld) [Vol rate/Area]Ordered By: Lynn Zurita on 02-14-2025 Estimated GFR (MDRD) Non-Af Amer 90 >60 [facility] Comment on above: mL/min/1.73m2 CKD-EP I Creatinine Equation (2020) Hemoglobin A1con 02-14-2025 HbA1c (Bld) [Mass fraction] 7.0 % High <=5.6 [facility] Comment on above: Order Comment: 101 Result Comment: Norm al < 5.7 % Prediabetic 5.7 - 6.4 % Diabetic >or= 6.5 % Please note range changes. Performed By: #### L 400.0001, M100.2200, L500.4050, L100.0500 #### [facility] [address] [place], [address] Hemoglobin A1c percentageOrd ered By: Lynn Zurita on 02-14-2025 HbA1c (Bld) [Mass fraction] 7.0 % High <5.7 [facility] Comment on above: Normal < 5.7 % Predi abetic 5.7 - 6.4 % Diabetic >or= 6.5 % Please note range changes. Potassium (Unsp spec) [Mass/ Vol]Ordered By: Lynn Zurita on 02-14-2025 Potassium [Moles/Vol] 4.2 mmol/L 3.3-5.1 [facility] Serum creatinine measurement (mass/volume)Ordered By: Lynn Zurita on 02-14-2025 Creatinine [Mass/Vol] 0.92 mg/dL 0.70-1.20 [facility] Serum glucose measurement (m ass/volume)Ordered By: Lynn Zurita on 02-14-2025 Glucose [Mass/Vol] 166 mg/dL High 70-99 [facility] Serum or plasma calcium federico urement (mass/volume)Ordered By: Lynn Zurita on 02-14-2025 Calcium [Mass/Vol] 9.1 mg/dL 7.6-11.0 [facility] Serum or plasma urea nitroge n measurement (mass/volume)Ordered By: Lynn Zurita on 02-14-2025 Urea nitrogen [Mass/Vol] 16 mg/dL 4-19 [facility] Sodium levelOrdered By: Moshe Zurita on 02-14-2025 Sodium [Moles/Vol] 141 mmol/L 133-145 [facility] Urine Cultureon 02-07-2025 [facility] Below infection leve l. Mixed Gram Positive Organisms [place] Count <1000 [facility] Mixed contaminants. Submit a new specimen if indicated. Normal [facility] Comment on above: Performed By: #### L 400.0001, M100.2200, L500.4050, L100.0500 #### [facility] [address] [place], [address] Anion gap in Serum or Plasma Ordered By: Lynn Zurita on 02-06-2025 Anion gap [Moles/Vol] 17 mmol/L High 5-15 [facility] BUN/creatinine ratioOrdered By: Lynn Zurita on 02-06-2025 Urea nitrogen/Creatinine [Mass ratio] 23.0 mg/mg High 10-20 [facility] Bilirubin, totalOrdered By: Lynn Zurita on 02-06-2025 Bilirubin [Mass/Vol] 0.35 mg/dL 0.00-1.30 [place] CBC-Complete Blood Cnt No Di ffon 02-06-2025 Erythrocyte distribution width (RBC) [Ratio] 13.2 % Normal 11.6-14.6 [facility] Comment on above: Order Comment: CLEAN CATCH Performed By: #### L 400.0001, M100.2200, L500.4050, L100.0500 #### [facility] [address] [place], [address] Hematocrit (Bld) [Volume fraction] 40.0 % Normal 40-54 [facility] Comment on above: Order Comment: CLEAN CATCH Performed By: #### L 400.0001, M100.2200, L500.4050, L100.0500 #### [facility] [address] [place], [address] Hemoglobin (Bld) [Mass/Vol] 13.7 g/dL Normal 13.0-16.5 [facility] Comment on above: Order Comment: CLEAN CATCH Performed By: #### L 400.0001, M100.2200, L500.4050, L100.0500 #### [facility] [address] [place], [address] MCH (RBC) [Entitic mass] 32.4 pg High 27.0-32.0 [facility] Comment on above: Order Comment: CLEAN CATCH Performed By: #### L 400.0001, M100.2200, L500.4050, L100.0500 #### [facility] [address] [place], [address] MCHC (RBC) [Mass/Vol] 34.3 g/dL Normal 32-36 [facility] Comment on above: Order Comment: CLEAN CATCH Performed By: #### L 400.0001, M100.2200, L500.4050, L100.0500 #### [facility] [address] [place], [address] MCV (RBC) [Entitic vol] 94.6 fL High 80-94 [facility] Comment on above: Order Comment: CLEAN CATCH Performed By: #### L 400.0001, M100.2200, L500.4050, L100.0500 #### [facility] [address] [place], [address] Platelet mean volume (Bld) [Entitic vol] 11.0 fL Normal 6.2-12.0 [facility] Comment on above: Order Comment: CLEAN CATCH Performed By: #### L 400.0001, M100.2200, L500.4050, L100.0500 #### [facility] [address] [place], [address] Platelets (Bld) [#/Vol] 180 10*3/uL Normal 150-450 [facility] Comment on above: Order Comment: CLEAN CATCH Performed By: #### L 400.0001, M100.2200, L500.4050, L100.0500 #### [facility] [address] [place], [address] RBC (Bld) [#/Vol] 4.23 10*6/uL Low 4.6-6.2 [facility] Comment on above: Order Comment: CLEAN CATCH Performed By: #### L 400.0001, M100.2200, L500.4050, L100.0500 #### [facility] [address] [place], [address] RDW SD 45.1 fl High 35.1-43.9 [facility] Comment on above: Order Comment: CLEAN CATCH Performed By: #### L 400.0001, M100.2200, L500.4050, L100.0500 #### [facility] [address] [place], [address] WBC (Bld) [#/Vol] 8.3 10*3/uL Normal 4.4-11.0 [facility] Comment on above: Order Comment: CLEAN CATCH Performed By: #### L 400.0001, M100.2200, L500.4050, L100.0500 #### [facility] [address] [place], [address] Carbon dioxide, total [Moles /volume] in Central venous bloodOrdered By: Lynn Zurita on 02-06-2025 CO2 [Moles/Vol] 18.2 mmol/L Low 21.0-32.0 [facility] Chloride assayOrdered By: Radames Zurita on 02-06-2025 Chloride [Moles/Vol] 107 mmol/L 98-108 [place] Comprehensive Metabolic Prof ilon 02-06-2025 Albumin [Mass/Vol] 4.3 g/dL Normal 3.4-4.8 [facility] Comment on above: Order Comment: CLEAN CATCH Performed By: #### L 400.0001, M100.2200, L500.4050, L100.0500 #### [facility] [address] [place], [address] Albumin/Globulin [Mass ratio] 1.6 {ratio} Normal 0.9-2.4 [facility] Comment on above: Order Comment: CLEAN CATCH Performed By: #### L 400.0001, M100.2200, L500.4050, L100.0500 #### [facility] [address] [place], [address] ALK PHOS 80 U/L Normal 40-129 [facility] Comment on above: Order Comment: CLEAN CATCH Performed By: #### L 400.0001, M100.2200, L500.4050, L100.0500 #### [facility] [address] [place], [address] ALT [Catalytic activity/Vol] 43 U/L Normal <=46 [facility] Comment on above: Order Comment: CLEAN CATCH Performed By: #### L 400.0001, M100.2200, L500.4050, L100.0500 #### [facility] [address] [place], [address] AST [Catalytic activity/Vol] 33 U/L Normal <=37 [facility] Comment on above: Order Comment: CLEAN CATCH Performed By: #### L 400.0001, M100.2200, L500.4050, L100.0500 #### [facility] [address] [place], [address] Bilirubin [Mass/Vol] 0.35 mg/dL Normal 0.00-1.30 [place] Comment on above: Order Comment: CLEAN CATCH Performed By: #### L 400.0001, M100.2200, L500.4050, L100.0500 #### [facility] [address] [place], [address] BUN/CRE 23.0 RATIO High 10-20 [facility] Comment on above: Order Comment: CLEAN CATCH Performed By: #### L 400.0001, M100.2200, L500.4050, L100.0500 #### [facility] [address] [place], [address] Calcium [Mass/Vol] 8.8 mg/dL Normal 7.6-11.0 [facility] Comment on above: Order Comment: CLEAN CATCH Performed By: #### L 400.0001, M100.2200, L500.4050, L100.0500 #### [facility] [address] [place], [address] Chloride [Moles/Vol] 107 mmol/L Normal 98-108 [place] Comment on above: Order Comment: CLEAN CATCH Performed By: #### L 400.0001, M100.2200, L500.4050, L100.0500 #### [facility] [address] [place], [address] CO2 [Moles/Vol] 18.2 mmol/L Low 21.0-32.0 [facility] Comment on above: Order Comment: CLEAN CATCH Performed By: #### L 400.0001, M100.2200, L500.4050, L100.0500 #### [facility] [address] [place], [address] Creatinine [Mass/Vol] 1.51 mg/dL High 0.70-1.20 [facility] Comment on above: Order Comment: CLEAN CATCH Performed By: #### L 400.0001, M100.2200, L500.4050, L100.0500 #### [facility] [address] [place], [address] GAP 17 High 5-15 [facility] Comment on above: Order Comment: CLEAN CATCH Performed By: #### L 400.0001, M100.2200, L500.4050, L100.0500 #### [facility] [address] [place], [address] GFR/1.73 sq M.predicted among non-blacks MDRD (S/P/Bld) [Vol rate/Area] 50 mL/min/{1.73_m2} Low >60 [facility] Comment on above: Order Comment: CLEAN CATCH Result Comment: mL/m in/1.73m2 CKD-EPI Creatinine Equation (2020) Performed By: #### L 400.0001, M100.2200, L500.4050, L100.0500 #### [facility] [address] [place], [address] Globulin (S) [Mass/Vol] 2.7 g/dL Normal 2.2-4.2 [facility] Comment on above: Order Comment: CLEAN CATCH Performed By: #### L 400.0001, M100.2200, L500.4050, L100.0500 #### [facility] [address] [place], [address] Glucose [Mass/Vol] 146 mg/dL High 70-99 [facility] Comment on above: Order Comment: CLEAN CATCH Performed By: #### L 400.0001, M100.2200, L500.4050, L100.0500 #### [facility] [address] [place], [address] Potassium [Moles/Vol] 4.2 mmol/L Normal 3.3-5.1 [facility] Comment on above: Order Comment: CLEAN CATCH Performed By: #### L 400.0001, M100.2200, L500.4050, L100.0500 #### [facility] [address] [place], [address] Sodium [Moles/Vol] 142 mmol/L Normal 133-145 [facility] Comment on above: Order Comment: CLEAN CATCH Performed By: #### L 400.0001, M100.2200, L500.4050, L100.0500 #### [facility] [address] [place], [address] T PROT 6.9 g/dL Normal 5.9-8.4 [facility] Comment on above: Order Comment: CLEAN CATCH Performed By: #### L 400.0001, M100.2200, L500.4050, L100.0500 #### [facility] [address] [place], [address] Urea nitrogen [Mass/Vol] 35 mg/dL High 4-19 [facility] Comment on above: Order Comment: CLEAN CATCH Performed By: #### L 400.0001, M100.2200, L500.4050, L100.0500 #### [facility] [address] [place], [address] Erythrocyte distribution wid th (RBC) [Ratio]Ordered By: Lynn Zurita on 02-06-2025 Erythrocyte distribution width (RBC) [Entitic vol] 45.1 fL High 35.1-43.9 [facility] Erythrocyte distribution wid th ratioOrdered By: Lynn Zurita on 02-06-2025 Erythrocyte distribution width (RBC) [Ratio] 13.2 % 11.6-14.6 [facility] GFR/1.73 sq M.predicted tyra g non-blacks MDRD (S/P/Bld) [Vol rate/Area]Ordered By: Lynn Zurita on 02-06-2025 Estimated GFR (MDRD) Non-Af Amer 50 Low >60 [facility] Comment on above: mL/min/1.73m2 CKD-EP I Creatinine Equation (2020) Hematocrit Auto (Bld) [Volum e fraction]Ordered By: Lynn Zurita on 02-06-2025 Hematocrit (Bld) [Volume fraction] 40.0 % 40-54 [facility] Hemoglobin measurementOrdere d By: Lynn Zurita on 02-06-2025 Hemoglobin (Bld) [Mass/Vol] 13.7 g/dL 13.0-16.5 [facility] - Chemistry and C hemistry - challengeOrdered By: Lynn Zurita on 02-06-2025 AST [Catalytic activity/Vol] 33 U/L <38 [facility] MCV (mean corpuscular volume ) determinationOrdered By: Lynn Zurita on 02-06-2025 MCV (RBC) [Entitic vol] 94.6 fL High 80-94 [facility] Mean corpuscular hemoglobin (MCH) determinationOrdered By: Lynn Zurita on 02-06-2025 MCH (RBC) [Entitic mass] 32.4 pg High 27.0-32.0 [facility] Mean corpuscular hemoglobin concentration (MCHC) determinationOrdered By: Lynn Zurita on 02-06-2025 MCHC (RBC) [Mass/Vol] 34.3 g/dL 32-36 [facility] Mean platelet volume determi nationOrdered By: Lynn Zurita on 02-06-2025 Platelet mean volume (Bld) [Entitic vol] 11.0 fL 6.2-12.0 [facility] Platelet countOrdered By: Radames Zurita on 02-06-2025 Platelets (Bld) [#/Vol] 180 10*3/uL 150-450 [facility] Potassium (Unsp spec) [Mass/ Vol]Ordered By: Lynn Zurita on 02-06-2025 Potassium [Moles/Vol] 4.2 mmol/L 3.3-5.1 [facility] RBC Auto (Bld) [#/Vol]Ordere d By: Lynn Zurita on 02-06-2025 RBC (Bld) [#/Vol] 4.23 10*6/uL Low 4.6-6.2 [facility] Serum creatinine measurement (mass/volume)Ordered By: Lynn Zurita on 02-06-2025 Creatinine [Mass/Vol] 1.51 mg/dL High 0.70-1.20 [facility] Serum globulin measurementOr dered By: Lynn Zurita on 02-06-2025 Globulin (S) [Mass/Vol] 2.7 g/dL 2.2-4.2 [facility] Serum glucose measurement (m ass/volume)Ordered By: Lynn Zurita on 02-06-2025 Glucose [Mass/Vol] 146 mg/dL High 70-99 [facility] Serum or plasma alanine yi otransferase (ALT) measurementOrdered By: Lynn Zurita on 02-06-2025 ALT [Catalytic activity/Vol] 43 U/L <47 [facility] Serum or plasma albumin federico urement (mass/volume)Ordered By: Lynn Zurita on 02-06-2025 Albumin [Mass/Vol] 4.3 g/dL 3.4-4.8 [facility] Serum or plasma albumin/glob ulin mass ratioOrdered By: Lynn Zurita on 02-06-2025 Albumin/Globulin [Mass ratio] 1.6 {ratio} 0.9-2.4 [facility] Serum or plasma alkaline ester sphatase measurementOrdered By: Lynn Zurita on 02-06-2025 ALP [Catalytic activity/Vol] 80 U/L 40-129 [facility] Serum or plasma calcium federico urement (mass/volume)Ordered By: Lynn Zurita on 02-06-2025 Calcium [Mass/Vol] 8.8 mg/dL 7.6-11.0 [facility] Serum or plasma urea nitroge n measurement (mass/volume)Ordered By: Lynn Zurita on 02-06-2025 Urea nitrogen [Mass/Vol] 35 mg/dL High 4-19 [facility] Sodium levelOrdered By: Moshe Zurita on 02-06-2025 Sodium [Moles/Vol] 142 mmol/L 133-145 [facility] Total proteinOrdered By: Nano Zurita on 02-06-2025 Protein [Mass/Vol] 6.9 g/dL 5.9-8.4 [facility] White blood cell (WBC) count Ordered By: Lynn Zurita on 02-06-2025 WBC (Bld) [#/Vol] 8.3 10*3/uL 4.4-11.0 [facility] CBC-Complete Blood Cnt No Di ffon 02-05-2025 HCT Normal 40-54 [facility] Comment on above: Order Comment: 101 Result Comment: UTO X2 Performed By: #### L 400.0001, M100.2200, L500.4050, L100.0500 #### [facility] [address] [place], [address] HGB Normal 13.0-16.5 [facility] Comment on above: Order Comment: 101 Result Comment: UTO X2 Performed By: #### L 400.0001, M100.2200, L500.4050, L100.0500 #### [facility] [address] [place], [address] MCH Normal 27.0-32.0 [facility] Comment on above: Order Comment: 101 Result Comment: UTO X2 Performed By: #### L 400.0001, M100.2200, L500.4050, L100.0500 #### [facility] [address] [place], [address] MCHC Normal 32-36 [facility] Comment on above: Order Comment: 101 Result Comment: UTO X2 Performed By: #### L 400.0001, M100.2200, L500.4050, L100.0500 #### [facility] [address] [place], [address] MCV Normal 80-94 [facility] Comment on above: Order Comment: 101 Result Comment: UTO X2 Performed By: #### L 400.0001, M100.2200, L500.4050, L100.0500 #### [facility] [address] [place], [address] PLT Normal 150-450 [facility] Comment on above: Order Comment: 101 Result Comment: UTO X2 Performed By: #### L 400.0001, M100.2200, L500.4050, L100.0500 #### [facility] [address] [place], [address] RBC Normal 4.6-6.2 [facility] Comment on above: Order Comment: 101 Result Comment: UTO X2 Performed By: #### L 400.0001, M100.2200, L500.4050, L100.0500 #### [facility] [address] [place], [address] RDW CV Normal 11.6-14.6 [facility] Comment on above: Order Comment: 101 Result Comment: UTO X2 Performed By: #### L 400.0001, M100.2200, L500.4050, L100.0500 #### [facility] [address] [place], [address] RDW SD Normal 35.1-43.9 [facility] Comment on above: Order Comment: 101 Result Comment: UTO X2 Performed By: #### L 400.0001, M100.2200, L500.4050, L100.0500 #### [facility] [address] [place], [address] WBC Normal 4.4-11.0 [facility] Comment on above: Order Comment: 101 Result Comment: UTO X2 Performed By: #### L 400.0001, M100.2200, L500.4050, L100.0500 #### [facility] [address] [place], [address] Comprehensive Metabolic Prof ilon 02-05-2025 ALB Normal 3.4-4.8 [facility] Comment on above: Order Comment: 101 Result Comment: UTO X2 Performed By: #### L 400.0001, M100.2200, L500.4050, L100.0500 #### [facility] [address] [place], [address] ALK PHOS Normal 40-129 [facility] Comment on above: Order Comment: 101 Result Comment: UTO X2 Performed By: #### L 400.0001, M100.2200, L500.4050, L100.0500 #### [facility] [address] [place], [address] ALT Normal <=46 [facility] Comment on above: Order Comment: 101 Result Comment: UTO X2 Performed By: #### L 400.0001, M100.2200, L500.4050, L100.0500 #### [facility] [address] [place], [address] AST Normal <=37 [facility] Comment on above: Order Comment: 101 Result Comment: UTO X2 Performed By: #### L 400.0001, M100.2200, L500.4050, L100.0500 #### [facility] [address] [place], [address] BUN Normal 4-19 [facility] Comment on above: Order Comment: 101 Result Comment: UTO X2 Performed By: #### L 400.0001, M100.2200, L500.4050, L100.0500 #### [facility] [address] [place], [address] BUN/CRE Normal 10-20 [facility] Comment on above: Order Comment: 101 Result Comment: UTO X2 Performed By: #### L 400.0001, M100.2200, L500.4050, L100.0500 #### [facility] [address] [place], [address] Calcium Normal 7.6-11.0 [facility] Comment on above: Order Comment: 101 Result Comment: UTO X2 Performed By: #### L 400.0001, M100.2200, L500.4050, L100.0500 #### [facility] [address] [place], [address] CL Normal 98-108 [facility] Comment on above: Order Comment: 101 Result Comment: UTO X2 Performed By: #### L 400.0001, M100.2200, L500.4050, L100.0500 #### [facility] [address] [place], [address] CO2 Normal 21.0-32.0 [facility] Comment on above: Order Comment: 101 Result Comment: UTO X2 Performed By: #### L 400.0001, M100.2200, L500.4050, L100.0500 #### [facility] [address] [place], [address] CREAT,SERUM Normal 0.70-1.20 [facility] Comment on above: Order Comment: 101 Result Comment: UTO X2 Performed By: #### L 400.0001, M100.2200, L500.4050, L100.0500 #### [facility] [address] [place], [address] eGFR Normal >60 [facility] Comment on above: Order Comment: 101 Result Comment: UTO X2 Performed By: #### L 400.0001, M100.2200, L500.4050, L100.0500 #### [facility] [address] [place], [address] GAP Normal 5-15 [facility] Comment on above: Order Comment: 101 Result Comment: UTO X2 Performed By: #### L 400.0001, M100.2200, L500.4050, L100.0500 #### [facility] [address] [place], [address] GLU Normal 70-99 [facility] Comment on above: Order Comment: 101 Result Comment: UTO X2 Performed By: #### L 400.0001, M100.2200, L500.4050, L100.0500 #### [facility] [address] [place], [address] Potassium Normal 3.3-5.1 [facility] [facility] Comment on above: Order Comment: 101 Result Comment: UTO X2 Performed By: #### L 400.0001, M100.2200, L500.4050, L100.0500 #### [facility] [address] [place], [address] T BILI Normal 0.00-1.30 [facility] Comment on above: Order Comment: 101 Result Comment: UTO X2 Performed By: #### L 400.0001, M100.2200, L500.4050, L100.0500 #### [facility] [address] [place], [address] T PROT Normal 5.9-8.4 [facility] Comment on above: Order Comment: 101 Result Comment: UTO X2 Performed By: #### L 400.0001, M100.2200, L500.4050, L100.0500 #### [facility] [address] [place], [address] Comprehensive Metabolic Profil Normal 133-145 [facility] Comment on above: Order Comment: 101 Result Comment: UTO X2 Performed By: #### L 400.0001, M100.2200, L500.4050, L100.0500 #### [facility] [address] [place], [address] Urinalysis, Completeon 02-05 EPI,SQUAMOUS 0-5 SEEN Normal 0-5 [facility] Comment on above: Order Comment: CLEAN CATCH Performed By: #### L 400.0001, M100.2200, L500.4050, L100.0500 #### [facility] [address] [place], [address] WBC 0-5 SEEN Normal 0-5 [facility] Comment on above: Order Comment: CLEAN CATCH Performed By: #### L 400.0001, M100.2200, L500.4050, L100.0500 #### [facility] [address] [place], [address] BACTERIA 0 SEEN Normal None Seen [facility] Comment on above: Order Comment: CLEAN CATCH Performed By: #### L 400.0001, M100.2200, L500.4050, L100.0500 #### [facility] [address] [place], [address] Mucus Ql (Urine sed) 0 SEEN Normal [place] Comment on above: Order Comment: CLEAN CATCH Performed By: #### L 400.0001, M100.2200, L500.4050, L100.0500 #### [facility] [address] [place], [address] RBC 0 SEEN Normal 0-5 [facility] Comment on above: Order Comment: CLEAN CATCH Performed By: #### L 400.0001, M100.2200, L500.4050, L100.0500 #### [facility] [address] [place], [address] Bilirubin Test strip Ql (U)O rdered By: Lynn Zurita on 02-04-2025 Bilirubin Ql (U) Negative Negative [facility] Epithelial cells.squamous LM Ql (Urine sed)Ordered By: Lynn Zurita on 02-04-2025 Epithelial cells.squamous LM.HPF (Urine sed) [#/Area] 0 /[HPF] 0-5 [facility] Glucose Ql (U)Ordered By: Radames Zurita on 02-04-2025 Glucose (U) [Mass/Vol] 100 mg/dL High Normal [facility] Ketones Test strip Ql (U)Ord ered By: Lynn Zurita on 02-04-2025 Ketones Ql (U) 15 mg/dl High Negative [facility] Microscopic analysis of urin e for red blood cells (RBC)Ordered By: Lynn Zruita on 02-04-2025 Urine RBC 0 SEEN /hpf 0-5 [facility] Mucus LM Ql (Urine sed)Order ed By: Lynn Zurita on 02-04-2025 Mucus Ql (Urine sed) 0 SEEN /hpf [facility] Nitrite Test strip Ql (U)Ord ered By: Lynn Zurita on 02-04-2025 Nitrite Ql (U) Negative Negative [facility] Protein Test strip Ql (U)Ord ered By: Lynn Zurita on 02-04-2025 Protein Ql (U) 30 mg/dl High Negative [facility] Urine blood detectionOrdered By: Lynn Zurita on 02-04-2025 Urine Occult Blood Negative Negative [facility] Urine clarityOrdered By: Nano Zurita on 02-04-2025 Clarity (U) Clear Clear [facility] Urine color determinationOrd ered By: Lynn Zurita on 02-04-2025 Color (U) Yellow Yellow [facility] Urine cultureOrdered By: Nano Zurita on 02-04-2025 Bacteria identified Cx Nom (U) Positive Abnormal [facility] Urine leukocyte esterase det ection by dipstickOrdered By: Lynn Zurita on 02-04-2025 Leukocyte esterase Test strip Ql (U) 25 /ul High Negative [facility] Urine pHOrdered By: Lynn Almanzar udla on 02-04-2025 pH (U) 6.0 [pH] 5.0 - 8.0 [facility] Urine sediment bacteria coun t by microscopy (number/high power field)Ordered By: Lynn Zurita on 02-04-2025 Bacteria LM.HPF (Urine sed) [#/Area] 0 /[HPF] None Seen [facility] Urine specific gravity measu rementOrdered By: Lynn Zurita on 02-04-2025 Specific gravity (U) [Rel density] 1.010 1.002-1.030 [facility] Urobilinogen Ql (U)Ordered B y: Lynn Zurita on 02-04-2025 Urobilinogen (U) [Mass/Vol] 1 mg/dL High Normal [facility] White blood cell countOrdere d By: Lynn Zurita on 02-04-2025 Urine WBC 0-5 SEEN /hpf 0-5 [facility] Absolute neutrophil countOrd ered By: Lynn Zurita on 01-28-2025 Neutrophils (Bld) [#/Vol] 4.9 10*3/uL 2.0-7.7 [facility] Basophil percentageOrdered B y: Lynn Zurita on 01-28-2025 Basophils/100 WBC (Bld) 0.5 % 0-1 [facility] CBC W/Diff, Automatedon 01-05 Absolute Lymph 1.71 X10 3/uL Normal 0.83-4.51 [facility] Comment on above: Order Comment: CLEAN CATCH Performed By: #### L 400.0001, M100.2200, L500.4050, L100.0500 #### [facility] [address] [place], [address] Absolute Neut 4.9 X10 3/uL Normal 2.0-7.7 [facility] Comment on above: Order Comment: CLEAN CATCH Performed By: #### L 400.0001, M100.2200, L500.4050, L100.0500 #### [facility] [address] [place], [address] Basophils/100 WBC (Bld) 0.5 % Normal 0-1 [facility] Comment on above: Order Comment: CLEAN CATCH Performed By: #### L 400.0001, M100.2200, L500.4050, L100.0500 #### [facility] [address] [place], [address] Eosinophils/100 WBC (Bld) 2.9 % Normal 0-5 [facility] Comment on above: Order Comment: CLEAN CATCH Performed By: #### L 400.0001, M100.2200, L500.4050, L100.0500 #### [facility] [address] [place], [address] Erythrocyte distribution width (RBC) [Ratio] 12.9 % Normal 11.6-14.6 [facility] Comment on above: Order Comment: CLEAN CATCH Performed By: #### L 400.0001, M100.2200, L500.4050, L100.0500 #### [facility] [address] [place], [address] Hematocrit (Bld) [Volume fraction] 41.1 % Normal 40-54 [facility] Comment on above: Order Comment: CLEAN CATCH Performed By: #### L 400.0001, M100.2200, L500.4050, L100.0500 #### [facility] [address] [place], [address] Hemoglobin (Bld) [Mass/Vol] 14.1 g/dL Normal 13.0-16.5 [facility] Comment on above: Order Comment: CLEAN CATCH Performed By: #### L 400.0001, M100.2200, L500.4050, L100.0500 #### [facility] [address] [place], [address] IG% 1.500 High 0.0-0.9 [facility] Comment on above: Order Comment: CLEAN CATCH Result Comment: IG% - Immature Granulocytes (promyelocytes, myelocytes and metamyelocytes) > 1% indicates that a LEFT SHIFT is Present. Performed By: #### L 400.0001, M100.2200, L500.4050, L100.0500 #### [facility] [address] [place], [address] Lymphocytes/100 WBC (Bld) 22.7 % Normal 19-41 [facility] Comment on above: Order Comment: CLEAN CATCH Performed By: #### L 400.0001, M100.2200, L500.4050, L100.0500 #### [facility] [address] [place], [address] MCH (RBC) [Entitic mass] 32.3 pg High 27.0-32.0 [facility] Comment on above: Order Comment: CLEAN CATCH Performed By: #### L 400.0001, M100.2200, L500.4050, L100.0500 #### [facility] [address] [place], [address] MCHC (RBC) [Mass/Vol] 34.3 g/dL Normal 32-36 [facility] Comment on above: Order Comment: CLEAN CATCH Performed By: #### L 400.0001, M100.2200, L500.4050, L100.0500 #### [facility] [address] [place], [address] MCV (RBC) [Entitic vol] 94.1 fL High 80-94 [facility] Comment on above: Order Comment: CLEAN CATCH Performed By: #### L 400.0001, M100.2200, L500.4050, L100.0500 #### [facility] [address] [place], [address] Monocytes/100 WBC (Bld) 7.7 % Normal 0-10 [facility] Comment on above: Order Comment: CLEAN CATCH Performed By: #### L 400.0001, M100.2200, L500.4050, L100.0500 #### [facility] [address] [place], [address] Neutrophils/100 WBC (Bld) 64.7 % Normal 47-70 [facility] Comment on above: Order Comment: CLEAN CATCH Performed By: #### L 400.0001, M100.2200, L500.4050, L100.0500 #### [facility] [address] [place], [address] Nucleated RBC (Bld) [#/Vol] 0 10*3/uL Normal 0-5 [facility] Comment on above: Order Comment: CLEAN CATCH Performed By: #### L 400.0001, M100.2200, L500.4050, L100.0500 #### [facility] [address] [place], [address] Platelet mean volume (Bld) [Entitic vol] 10.9 fL Normal 6.2-12.0 [facility] Comment on above: Order Comment: CLEAN CATCH Performed By: #### L 400.0001, M100.2200, L500.4050, L100.0500 #### [facility] [address] [place], [address] Platelets (Bld) [#/Vol] 192 10*3/uL Normal 150-450 [facility] Comment on above: Order Comment: CLEAN CATCH Performed By: #### L 400.0001, M100.2200, L500.4050, L100.0500 #### [facility] [address] [place], [address] RBC (Bld) [#/Vol] 4.37 10*6/uL Low 4.6-6.2 [facility] Comment on above: Order Comment: CLEAN CATCH Performed By: #### L 400.0001, M100.2200, L500.4050, L100.0500 #### [facility] [address] [place], [address] RDW SD 44.0 fl High 35.1-43.9 [facility] Comment on above: Order Comment: CLEAN CATCH Performed By: #### L 400.0001, M100.2200, L500.4050, L100.0500 #### [facility] [address] [place], [address] WBC (Bld) [#/Vol] 7.5 10*3/uL Normal 4.4-11.0 [facility] Comment on above: Order Comment: CLEAN CATCH Performed By: #### L 400.0001, M100.2200, L500.4050, L100.0500 #### [facility] [address] [place], [address] Eosinophil percentageOrdered By: Lynn Zurita on 01-28-2025 Eosinophils/100 WBC (Bld) 2.9 % 0-5 [facility] Erythrocyte distribution wid th (RBC) [Ratio]Ordered By: Lynn Zurita on 01-28-2025 Erythrocyte distribution width (RBC) [Entitic vol] 44.0 fL High 35.1-43.9 [facility] Erythrocyte distribution wid th ratioOrdered By: Lynn Zurita on 01-28-2025 Erythrocyte distribution width (RBC) [Ratio] 12.9 % 11.6-14.6 [facility] Hematocrit Auto (Bld) [Volum e fraction]Ordered By: Lynn Zurita on 01-28-2025 Hematocrit (Bld) [Volume fraction] 41.1 % 40-54 [facility] Hemoglobin measurementOrdere d By: Lynn Zurita on 01-28-2025 Hemoglobin (Bld) [Mass/Vol] 14.1 g/dL 13.0-16.5 [facility] Immature granulocytes/100 WB C Auto (Bld)Ordered By: Lynn Zurita on 01-28-2025 Immature granulocytes/100 WBC (Bld) 1.500 % High 0.0-0.9 [facility] Comment on above: IG% - Immature Granu locytes (promyelocytes, myelocytes and metamyelocytes) > 1% indicates that a LEFT SHIFT is Present. Lymphocytes Auto (Unsp spec) [#/Vol]Ordered By: Lynn Zurita on 01-28-2025 Lymphocytes (Bld) [#/Vol] 1.71 10*3/uL 0.83-4.51 [facility] Lymphocytes/100 WBC Auto (Un sp spec)Ordered By: Lynn Zurita on 01-28-2025 Lymphocytes/100 WBC (Bld) 22.7 % 19-41 [facility] MCV (mean corpuscular volume ) determinationOrdered By: Lynn Zurita on 01-28-2025 MCV (RBC) [Entitic vol] 94.1 fL High 80-94 [facility] Mean corpuscular hemoglobin (MCH) determinationOrdered By: Lynn Zurita on 01-28-2025 MCH (RBC) [Entitic mass] 32.3 pg High 27.0-32.0 [facility] Mean corpuscular hemoglobin concentration (MCHC) determinationOrdered By: Lynn Zurita on 01-28-2025 MCHC (RBC) [Mass/Vol] 34.3 g/dL 32-36 [facility] Mean platelet volume determi nationOrdered By: Lynn Zurita on 01-28-2025 Platelet mean volume (Bld) [Entitic vol] 10.9 fL 6.2-12.0 [facility] Monocyte percentageOrdered B y: Lynn Zurita on 01-28-2025 Monocytes/100 WBC (Bld) 7.7 % 0-10 [facility] Neutrophil percentageOrdered By: Lynn Zurita on 01-28-2025 Neutrophils/100 WBC (Bld) 64.7 % 47-70 [facility] Nucleated red blood cell per centageOrdered By: Lynn Zurita on 01-28-2025 Nucleated RBC/100 WBC (Bld) [Ratio] 0 % 0-5 [facility] Platelet countOrdered By: Radames Zurita on 01-28-2025 Platelets (Bld) [#/Vol] 192 10*3/uL 150-450 [facility] RBC Auto (Bld) [#/Vol]Ordere d By: Lynn Zurita on 01-28-2025 RBC (Bld) [#/Vol] 4.37 10*6/uL Low 4.6-6.2 [facility] White blood cell (WBC) count Ordered By: Lynn Zurita on 01-28-2025 WBC (Bld) [#/Vol] 7.5 10*3/uL 4.4-11.0 [facility] Absolute neutrophil countOrd ered By: Lynn Zurita on 12-30-2024 Neutrophils (Bld) [#/Vol] 5.5 10*3/uL 2.0-7.7 [facility] Basophil percentageOrdered B y: Lynn Zurita on 12-30-2024 Basophils/100 WBC (Bld) 0.5 % 0-1 [facility] CBC W/Diff, Automatedon 12-08 Absolute Lymph 1.50 X10 3/uL Normal 0.83-4.51 [facility] Comment on above: Order Comment: 101 Performed By: #### L 100.0100 #### [facility] [address] [place], [address] Absolute Neut 5.5 X10 3/uL Normal 2.0-7.7 [facility] Comment on above: Order Comment: 101 Performed By: #### L 100.0100 #### [facility] [address] [place], [address] Basophils/100 WBC (Bld) 0.5 % Normal 0-1 [facility] Comment on above: Order Comment: 101 Performed By: #### L 100.0100 #### [facility] [address] [place], [address] Eosinophils/100 WBC (Bld) 2.3 % Normal 0-5 [facility] Comment on above: Order Comment: 101 Performed By: #### L 100.0100 #### [facility] [address] [place], [address] Erythrocyte distribution width (RBC) [Ratio] 13.1 % Normal 11.6-14.6 [facility] Comment on above: Order Comment: 101 Performed By: #### L 100.0100 #### [facility] [address] [place], [address] Hematocrit (Bld) [Volume fraction] 41.1 % Normal 40-54 [facility] Comment on above: Order Comment: 101 Performed By: #### L 100.0100 #### [facility] [address] [place], [address] Hemoglobin (Bld) [Mass/Vol] 13.4 g/dL Normal 13.0-16.5 [facility] Comment on above: Order Comment: 101 Performed By: #### L 100.0100 #### [facility] [address] [place], [address] IG% 1.000 High 0.0-0.9 [facility] Comment on above: Order Comment: 101 Result Comment: IG% - Immature Granulocytes (promyelocytes, myelocytes and metamyelocytes) > 1% indicates that a LEFT SHIFT is Present. Performed By: #### L 100.0100 #### [facility] [address] [place], [address] Lymphocytes/100 WBC (Bld) 19.0 % Normal 19-41 [facility] Comment on above: Order Comment: 101 Performed By: #### L 100.0100 #### [facility] [address] [place], [address] MCH (RBC) [Entitic mass] 31.3 pg Normal 27.0-32.0 [facility] Comment on above: Order Comment: 101 Performed By: #### L 100.0100 #### [facility] [address] [place], [address] MCHC (RBC) [Mass/Vol] 32.6 g/dL Normal 32-36 [facility] Comment on above: Order Comment: 101 Performed By: #### L 100.0100 #### [facility] [address] [place], [address] MCV (RBC) [Entitic vol] 96.0 fL High 80-94 [facility] Comment on above: Order Comment: 101 Performed By: #### L 100.0100 #### [facility] [address] [place], [address] Monocytes/100 WBC (Bld) 8.0 % Normal 0-10 [facility] Comment on above: Order Comment: 101 Performed By: #### L 100.0100 #### [facility] [address] [place], [address] Neutrophils/100 WBC (Bld) 69.2 % Normal 47-70 [facility] Comment on above: Order Comment: 101 Performed By: #### L 100.0100 #### [facility] [address] [place], [address] Nucleated RBC (Bld) [#/Vol] 0 10*3/uL Normal 0-5 [facility] Comment on above: Order Comment: 101 Performed By: #### L 100.0100 #### [facility] [address] [place], [address] Platelet mean volume (Bld) [Entitic vol] 10.7 fL Normal 6.2-12.0 [facility] Comment on above: Order Comment: 101 Performed By: #### L 100.0100 #### [facility] [address] [place], [address] Platelets (Bld) [#/Vol] 197 10*3/uL Normal 150-450 [facility] Comment on above: Order Comment: 101 Performed By: #### L 100.0100 #### [facility] [address] [place], [address] RBC (Bld) [#/Vol] 4.28 10*6/uL Low 4.6-6.2 [facility] Comment on above: Order Comment: 101 Performed By: #### L 100.0100 #### [facility] [address] [place], [address] RDW SD 46.0 fl High 35.1-43.9 [facility] Comment on above: Order Comment: 101 Performed By: #### L 100.0100 #### [facility] [address] [place], [address] WBC (Bld) [#/Vol] 7.9 10*3/uL Normal 4.4-11.0 [facility] Comment on above: Order Comment: 101 Performed By: #### L 100.0100 #### [facility] [address] [place], [address] Eosinophil percentageOrdered By: Lynn Zurita on 12-30-2024 Eosinophils/100 WBC (Bld) 2.3 % 0-5 [facility] Erythrocyte distribution wid th (RBC) [Ratio]Ordered By: Lynn Zurita on 12-30-2024 Erythrocyte distribution width (RBC) [Entitic vol] 46.0 fL High 35.1-43.9 [facility] Erythrocyte distribution wid th ratioOrdered By: Lynn Zurita on 12-30-2024 Erythrocyte distribution width (RBC) [Ratio] 13.1 % 11.6-14.6 [facility] Hematocrit Auto (Bld) [Volum e fraction]Ordered By: Lynn Zurita on 12-30-2024 Hematocrit (Bld) [Volume fraction] 41.1 % 40-54 [facility] Hemoglobin measurementOrdere d By: Lynn Zurita on 12-30-2024 Hemoglobin (Bld) [Mass/Vol] 13.4 g/dL 13.0-16.5 [facility] Immature granulocytes/100 WB C Auto (Bld)Ordered By: Lynn Zurita on 12-30-2024 Immature granulocytes/100 WBC (Bld) 1.000 % High 0.0-0.9 [facility] Comment on above: IG% - Immature Granu locytes (promyelocytes, myelocytes and metamyelocytes) > 1% indicates that a LEFT SHIFT is Present. Lymphocytes Auto (Unsp spec) [#/Vol]Ordered By: Lynn Zurita on 12-30-2024 Lymphocytes (Bld) [#/Vol] 1.50 10*3/uL 0.83-4.51 [facility] Lymphocytes/100 WBC Auto (Un sp spec)Ordered By: Lynn Zurita on 12-30-2024 Lymphocytes/100 WBC (Bld) 19.0 % 19-41 [facility] MCV (mean corpuscular volume ) determinationOrdered By: Lynn Zurita on 12-30-2024 MCV (RBC) [Entitic vol] 96.0 fL High 80-94 [facility] Mean corpuscular hemoglobin (MCH) determinationOrdered By: Lynn Zurita on 12-30-2024 MCH (RBC) [Entitic mass] 31.3 pg 27.0-32.0 [facility] Mean corpuscular hemoglobin concentration (MCHC) determinationOrdered By: Lynn Zurita on 12-30-2024 MCHC (RBC) [Mass/Vol] 32.6 g/dL 32-36 [facility] Mean platelet volume determi nationOrdered By: Lynn Zurita on 12-30-2024 Platelet mean volume (Bld) [Entitic vol] 10.7 fL 6.2-12.0 [facility] Monocyte percentageOrdered B y: Lynn Zurita on 12-30-2024 Monocytes/100 WBC (Bld) 8.0 % 0-10 [facility] Neutrophil percentageOrdered By: Lynn Zurita on 12-30-2024 Neutrophils/100 WBC (Bld) 69.2 % 47-70 [facility] Nucleated red blood cell per centageOrdered By: Lynn Zurita on 12-30-2024 Nucleated RBC/100 WBC (Bld) [Ratio] 0 % 0-5 [facility] Platelet countOrdered By: Radames Zurita on 12-30-2024 Platelets (Bld) [#/Vol] 197 10*3/uL 150-450 [facility] RBC Auto (Bld) [#/Vol]Ordere d By: Lynn Zurita on 12-30-2024 RBC (Bld) [#/Vol] 4.28 10*6/uL Low 4.6-6.2 [facility] White blood cell (WBC) count Ordered By: Lynn Zurita on 12-30-2024 WBC (Bld) [#/Vol] 7.9 10*3/uL 4.4-11.0 [facility] CBC-Complete Blood Cnt No Di ffon 12-02-2024 Erythrocyte distribution width (RBC) [Ratio] 13.4 % Normal 11.6-14.6 [facility] Comment on above: Order Comment: CLEAN CATCH Performed By: #### L 400.0001, M100.2200, L500.4050, L100.0500 #### [facility] [address] [place], [address] Hematocrit (Bld) [Volume fraction] 38.7 % Low 40-54 [facility] Comment on above: Order Comment: CLEAN CATCH Performed By: #### L 400.0001, M100.2200, L500.4050, L100.0500 #### [facility] [address] [place], [address] Hemoglobin (Bld) [Mass/Vol] 12.7 g/dL Low 13.0-16.5 [facility] Comment on above: Order Comment: CLEAN CATCH Performed By: #### L 400.0001, M100.2200, L500.4050, L100.0500 #### [facility] [address] [place], [address] MCH (RBC) [Entitic mass] 31.4 pg Normal 27.0-32.0 [facility] Comment on above: Order Comment: CLEAN CATCH Performed By: #### L 400.0001, M100.2200, L500.4050, L100.0500 #### [facility] [address] [place], [address] MCHC (RBC) [Mass/Vol] 32.8 g/dL Normal 32-36 [facility] Comment on above: Order Comment: CLEAN CATCH Performed By: #### L 400.0001, M100.2200, L500.4050, L100.0500 #### [facility] [address] [place], [address] MCV (RBC) [Entitic vol] 95.6 fL High 80-94 [facility] Comment on above: Order Comment: CLEAN CATCH Performed By: #### L 400.0001, M100.2200, L500.4050, L100.0500 #### [facility] [address] [place], [address] Platelet mean volume (Bld) [Entitic vol] 10.4 fL Normal 6.2-12.0 [facility] Comment on above: Order Comment: CLEAN CATCH Performed By: #### L 400.0001, M100.2200, L500.4050, L100.0500 #### [facility] [address] [place], [address] Platelets (Bld) [#/Vol] 170 10*3/uL Normal 150-450 [facility] Comment on above: Order Comment: CLEAN CATCH Performed By: #### L 400.0001, M100.2200, L500.4050, L100.0500 #### [facility] [address] [place], [address] RBC (Bld) [#/Vol] 4.05 10*6/uL Low 4.6-6.2 [facility] Comment on above: Order Comment: CLEAN CATCH Performed By: #### L 400.0001, M100.2200, L500.4050, L100.0500 #### [facility] [address] [place], [address] RDW SD 47.0 fl High 35.1-43.9 [facility] Comment on above: Order Comment: CLEAN CATCH Performed By: #### L 400.0001, M100.2200, L500.4050, L100.0500 #### [facility] [address] [place], [address] WBC (Bld) [#/Vol] 7.4 10*3/uL Normal 4.4-11.0 [facility] Comment on above: Order Comment: CLEAN CATCH Performed By: #### L 400.0001, M100.2200, L500.4050, L100.0500 #### [facility] [address] [place], [address] Erythrocyte distribution wid th (RBC) [Ratio]Ordered By: Lynn Zurita on 12-02-2024 Erythrocyte distribution width (RBC) [Entitic vol] 47.0 fL High 35.1-43.9 [facility] Erythrocyte distribution wid th ratioOrdered By: Lynn Zurita on 12-02-2024 Erythrocyte distribution width (RBC) [Ratio] 13.4 % 11.6-14.6 [facility] Hematocrit Auto (Bld) [Volum e fraction]Ordered By: Lynn Zurita on 12-02-2024 Hematocrit (Bld) [Volume fraction] 38.7 % Low 40-54 [facility] Hemoglobin measurementOrdere d By: Lynn Zurita on 12-02-2024 Hemoglobin (Bld) [Mass/Vol] 12.7 g/dL Low 13.0-16.5 [facility] MCV (mean corpuscular volume ) determinationOrdered By: Lynn Zurita on 12-02-2024 MCV (RBC) [Entitic vol] 95.6 fL High 80-94 [facility] Mean corpuscular hemoglobin (MCH) determinationOrdered By: Lynn Zurita on 12-02-2024 MCH (RBC) [Entitic mass] 31.4 pg 27.0-32.0 [facility] Mean corpuscular hemoglobin concentration (MCHC) determinationOrdered By: Lynn Zurita on 12-02-2024 MCHC (RBC) [Mass/Vol] 32.8 g/dL 32-36 [facility] Mean platelet volume determi nationOrdered By: Lynn Zurita on 12-02-2024 Platelet mean volume (Bld) [Entitic vol] 10.4 fL 6.2-12.0 [facility] Platelet countOrdered By: Radames Zurita on 12-02-2024 Platelets (Bld) [#/Vol] 170 10*3/uL 150-450 [facility] RBC Auto (Bld) [#/Vol]Ordere d By: Lynn Zurita on 12-02-2024 RBC (Bld) [#/Vol] 4.05 10*6/uL Low 4.6-6.2 [facility] White blood cell (WBC) count Ordered By: Lynn Zurita on 12-02-2024 WBC (Bld) [#/Vol] 7.4 10*3/uL 4.4-11.0 [facility] Hemoglobin A1con 11-12-2024 HbA1c (Bld) [Mass fraction] 6.9 % High 3.8-5.6 [facility] Comment on above: Order Comment: 101 Result Comment: Norm al < 5.7 % Prediabetic 5.7 - 6.4 % Diabetic >or= 6.5 % Please note range changes. Performed By: #### L 400.0001, M100.2200, L500.4050, L100.0500 #### [facility] [address] [place], [address] Hemoglobin A1c percentageOrd ered By: Lynn Zurita on 11-12-2024 HbA1c (Bld) [Mass fraction] 6.9 % High 3.8-5.6 [facility] Comment on above: Normal < 5.7 % Predi abetic 5.7 - 6.4 % Diabetic >or= 6.5 % Please note range changes. Absolute neutrophil countOrd ered By: Lynn Zurita on 11-04-2024 Neutrophils (Bld) [#/Vol] 5.7 10*3/uL 2.0-7.7 [facility] Basophil percentageOrdered B y: Lynn Antonjennifer on 11-04-2024 Basophils/100 WBC (Bld) 0.5 % 0-1 [facility] CBC W/Diff, Automatedon 10-08-2023 Absolute Lymph 1.46 X10 3/uL Normal 0.83-4.51 [facility] Comment on above: Order Comment: CLEAN CATCH Performed By: #### L 400.0001, M100.2200, L500.4050, L100.0500 #### [facility] [address] [place], [address] Absolute Neut 5.7 X10 3/uL Normal 2.0-7.7 [facility] Comment on above: Order Comment: CLEAN CATCH Performed By: #### L 400.0001, M100.2200, L500.4050, L100.0500 #### [facility] [address] [place], [address] Basophils/100 WBC (Bld) 0.5 % Normal 0-1 [facility] Comment on above: Order Comment: CLEAN CATCH Performed By: #### L 400.0001, M100.2200, L500.4050, L100.0500 #### [facility] [address] [place], [address] Eosinophils/100 WBC (Bld) 3.2 % Normal 0-5 [facility] Comment on above: Order Comment: CLEAN CATCH Performed By: #### L 400.0001, M100.2200, L500.4050, L100.0500 #### [facility] [address] [place], [address] Erythrocyte distribution width (RBC) [Ratio] 13.4 % Normal 11.6-14.6 [facility] Comment on above: Order Comment: CLEAN CATCH Performed By: #### L 400.0001, M100.2200, L500.4050, L100.0500 #### [facility] [address] [place], [address] Hematocrit (Bld) [Volume fraction] 40.7 % Normal 40-54 [facility] Comment on above: Order Comment: CLEAN CATCH Performed By: #### L 400.0001, M100.2200, L500.4050, L100.0500 #### [facility] [address] [place], [address] Hemoglobin (Bld) [Mass/Vol] 13.8 g/dL Normal 13.0-16.5 [facility] Comment on above: Order Comment: CLEAN CATCH Performed By: #### L 400.0001, M100.2200, L500.4050, L100.0500 #### [facility] [address] [place], [address] IG% 0.900 Normal 0.0-0.9 [facility] Comment on above: Order Comment: CLEAN CATCH Result Comment: IG% - Immature Granulocytes (promyelocytes, myelocytes and metamyelocytes) > 1% indicates that a LEFT SHIFT is Present. Performed By: #### L 400.0001, M100.2200, L500.4050, L100.0500 #### [facility] [address] [place], [address] Lymphocytes/100 WBC (Bld) 17.9 % Low 19-41 [facility] Comment on above: Order Comment: CLEAN CATCH Performed By: #### L 400.0001, M100.2200, L500.4050, L100.0500 #### [facility] [address] [place], [address] MCH (RBC) [Entitic mass] 32.6 pg High 27.0-32.0 [facility] Comment on above: Order Comment: CLEAN CATCH Performed By: #### L 400.0001, M100.2200, L500.4050, L100.0500 #### [facility] [address] [place], [address] MCHC (RBC) [Mass/Vol] 33.9 g/dL Normal 32-36 [facility] Comment on above: Order Comment: CLEAN CATCH Performed By: #### L 400.0001, M100.2200, L500.4050, L100.0500 #### [facility] [address] [place], [address] MCV (RBC) [Entitic vol] 96.2 fL High 80-94 [facility] Comment on above: Order Comment: CLEAN CATCH Performed By: #### L 400.0001, M100.2200, L500.4050, L100.0500 #### [facility] [address] [place], [address] Monocytes/100 WBC (Bld) 7.8 % Normal 0-10 [facility] Comment on above: Order Comment: CLEAN CATCH Performed By: #### L 400.0001, M100.2200, L500.4050, L100.0500 #### [facility] [address] [place], [address] Neutrophils/100 WBC (Bld) 69.7 % Normal 47-70 [facility] Comment on above: Order Comment: CLEAN CATCH Performed By: #### L 400.0001, M100.2200, L500.4050, L100.0500 #### [facility] [address] [place], [address] Nucleated RBC (Bld) [#/Vol] 0 10*3/uL Normal 0-5 [facility] Comment on above: Order Comment: CLEAN CATCH Performed By: #### L 400.0001, M100.2200, L500.4050, L100.0500 #### [facility] [address] [place], [address] Platelet mean volume (Bld) [Entitic vol] 10.7 fL Normal 6.2-12.0 [facility] Comment on above: Order Comment: CLEAN CATCH Performed By: #### L 400.0001, M100.2200, L500.4050, L100.0500 #### [facility] [address] [place], [address] Platelets (Bld) [#/Vol] 166 10*3/uL Normal 150-450 [facility] Comment on above: Order Comment: CLEAN CATCH Performed By: #### L 400.0001, M100.2200, L500.4050, L100.0500 #### [facility] [address] [place], [address] RBC (Bld) [#/Vol] 4.23 10*6/uL Low 4.6-6.2 [facility] Comment on above: Order Comment: CLEAN CATCH Performed By: #### L 400.0001, M100.2200, L500.4050, L100.0500 #### [facility] [address] [place], [address] RDW SD 47.6 fl High 35.1-43.9 [facility] Comment on above: Order Comment: CLEAN CATCH Performed By: #### L 400.0001, M100.2200, L500.4050, L100.0500 #### [facility] [address] [place], [address] WBC (Bld) [#/Vol] 8.2 10*3/uL Normal 4.4-11.0 [facility] Comment on above: Order Comment: CLEAN CATCH Performed By: #### L 400.0001, M100.2200, L500.4050, L100.0500 #### [facility] [place], [address] Eosinophil percentageOrdered By: Lynn Zurita on 11-04-2024 Eosinophils/100 WBC (Bld) 3.2 % 0-5 [facility] Erythrocyte distribution wid th (RBC) [Ratio]Ordered By: Lynn Zurita on 11-04-2024 Erythrocyte distribution width (RBC) [Entitic vol] 47.6 fL High 35.1-43.9 [facility] Erythrocyte distribution wid th ratioOrdered By: Lynnluke Zurita on 11-04-2024 Erythrocyte distribution width (RBC) [Ratio] 13.4 % 11.6-14.6 [facility] Hematocrit Auto (Bld) [Volum e fraction]Ordered By: Lynn Zurita on 11-04-2024 Hematocrit (Bld) [Volume fraction] 40.7 % 40-54 [facility] Hemoglobin measurementOrdere d By: Lynn Zurita on 11-04-2024 Hemoglobin (Bld) [Mass/Vol] 13.8 g/dL 13.0-16.5 [facility] Immature granulocytes/100 WB C Auto (Bld)Ordered By: Lynn Zurita on 11-04-2024 Immature granulocytes/100 WBC (Bld) 0.900 % 0.0-0.9 [facility] Comment on above: IG% - Immature Granu locytes (promyelocytes, myelocytes and metamyelocytes) > 1% indicates that a LEFT SHIFT is Present. Lymphocytes Auto (Unsp spec) [#/Vol]Ordered By: Lynn Zurita on 11-04-2024 Lymphocytes (Bld) [#/Vol] 1.46 10*3/uL 0.83-4.51 [facility] Lymphocytes/100 WBC Auto (Un sp spec)Ordered By: Lynn Zurita on 11-04-2024 Lymphocytes/100 WBC (Bld) 17.9 % Low 19-41 [facility] MCV (mean corpuscular volume ) determinationOrdered By: Lynn Zurita on 11-04-2024 MCV (RBC) [Entitic vol] 96.2 fL High 80-94 [facility] Mean corpuscular hemoglobin (MCH) determinationOrdered By: Lynn Zurita on 11-04-2024 MCH (RBC) [Entitic mass] 32.6 pg High 27.0-32.0 [facility] Mean corpuscular hemoglobin concentration (MCHC) determinationOrdered By: Lynn Zurita on 11-04-2024 MCHC (RBC) [Mass/Vol] 33.9 g/dL 32-36 [facility] Mean platelet volume determi nationOrdered By: Lynn Zurita on 11-04-2024 Platelet mean volume (Bld) [Entitic vol] 10.7 fL 6.2-12.0 [facility] Monocyte percentageOrdered B y: Lynn Zurita on 11-04-2024 Monocytes/100 WBC (Bld) 7.8 % 0-10 [facility] Neutrophil percentageOrdered By: Lynn Zurita on 11-04-2024 Neutrophils/100 WBC (Bld) 69.7 % 47-70 [facility] Nucleated red blood cell per centageOrdered By: Lynn Zurita on 11-04-2024 Nucleated RBC/100 WBC (Bld) [Ratio] 0 % 0-5 [facility] Platelet countOrdered By: Radames Zurita on 11-04-2024 Platelets (Bld) [#/Vol] 166 10*3/uL 150-450 [facility] RBC Auto (Bld) [#/Vol]Ordere d By: Lynn Zurita on 11-04-2024 RBC (Bld) [#/Vol] 4.23 10*6/uL Low 4.6-6.2 [facility] White blood cell (WBC) count Ordered By: Lynn Zurita on 11-04-2024 WBC (Bld) [#/Vol] 8.2 10*3/uL 4.4-11.0 [facility] Lipid Profileon 10-14-2024 Cholesterol [Mass/Vol] 165 mg/dL Normal 200 [facility] Comment on above: Order Comment: 101 Result Comment: <200 mg/dL Desirable 200-240 mg/dL Borderline >240 mg/dL High Risk Performed By: #### L 400.0001, M100.2200, L500.4050, L100.0500 #### [facility] [address] [place], [address] Cholesterol in HDL [Mass/Vol] 30 mg/dL Low [facility] Comment on above: Order Comment: 101 Result Comment: The drugs N-Acetylcysteine and Metamizole may falsely depress this assay. Reference Range HDL <40 mg/dL Low HDL Cholesterol HDL >or= 60 mg/dL High HDL Cholesterol Performed By: #### L 400.0001, M100.2200, L500.4050, L100.0500 #### [facility] [address] [place], [address] Cholesterol in LDL [Mass/Vol] 69 mg/dL Normal 0-130 [facility] Comment on above: Order Comment: 101 Performed By: #### L 400.0001, M100.2200, L500.4050, L100.0500 #### [facility] [address] [place], [address] Cholesterol in VLDL [Mass/Vol] 66 mg/dL High 5-40 [facility] Comment on above: Order Comment: 101 Performed By: #### L 400.0001, M100.2200, L500.4050, L100.0500 #### [facility] [address] [place], [address] Triglyceride [Mass/Vol] 328 mg/dL High [facility] Comment on above: Order Comment: 101 Result Comment: The drugs N-Acetylcysteine and Metamizole may falsely depress this assay. Serum Triglycerides Reference Interval Normal <150 mg/dL Borderline high 150 - 199 mg/dL High 200 - 499 mg/dL Very High > or = 500 mg/dL Performed By: #### L 400.0001, M100.2200, L500.4050, L100.0500 #### [facility] [address] [place], [address] CBC W/Diff, Automatedon 12-0 Absolute Lymph 1.51 X10 3/uL Normal 0.83-4.51 [facility] Comment on above: Order Comment: 101 Performed By: #### L 100.0100 #### [facility] [address] [place], [address] Absolute Neut 4.5 X10 3/uL Normal 2.0-7.7 [facility] Comment on above: Order Comment: 101 Performed By: #### L 100.0100 #### [facility] [address] [place], [address] Basophils/100 WBC (Bld) 0.6 % Normal 0-1 [facility] Comment on above: Order Comment: 101 Performed By: #### L 100.0100 #### [facility] [address] [place], [address] Eosinophils/100 WBC (Bld) 2.6 % Normal 0-5 [facility] Comment on above: Order Comment: 101 Performed By: #### L 100.0100 #### [facility] [address] [place], [address] Erythrocyte distribution width (RBC) [Ratio] 13.2 % Normal 11.6-14.6 [facility] Comment on above: Order Comment: 101 Performed By: #### L 100.0100 #### [facility] [address] [place], [address] Hematocrit (Bld) [Volume fraction] 41.6 % Normal 40-54 [facility] Comment on above: Order Comment: 101 Performed By: #### L 100.0100 #### [facility] [address] [place], [address] Hemoglobin (Bld) [Mass/Vol] 14.4 g/dL Normal 13.0-16.5 [facility] Comment on above: Order Comment: 101 Performed By: #### L 100.0100 #### [facility] [address] [place], [address] IG% 1.000 High 0.0-0.9 [facility] Comment on above: Order Comment: 101 Result Comment: IG% - Immature Granulocytes (promyelocytes, myelocytes and metamyelocytes) > 1% indicates that a LEFT SHIFT is Present. Performed By: #### L 100.0100 #### [facility] [address] [place], [address] Lymphocytes/100 WBC (Bld) 21.7 % Normal 19-41 [facility] Comment on above: Order Comment: 101 Performed By: #### L 100.0100 #### [facility] [address] [place], [address] MCH (RBC) [Entitic mass] 32.5 pg High 27.0-32.0 [facility] Comment on above: Order Comment: 101 Performed By: #### L 100.0100 #### [facility] [address] [place], [address] MCHC (RBC) [Mass/Vol] 34.6 g/dL Normal 32-36 [facility] Comment on above: Order Comment: 101 Performed By: #### L 100.0100 #### [facility] [address] [place], [address] MCV (RBC) [Entitic vol] 93.9 fL Normal 80-94 [facility] Comment on above: Order Comment: 101 Performed By: #### L 100.0100 #### [facility] [address] [place], [address] Monocytes/100 WBC (Bld) 9.4 % Normal 0-10 [facility] Comment on above: Order Comment: 101 Performed By: #### L 100.0100 #### [facility] [address] [place], [address] Neutrophils/100 WBC (Bld) 64.7 % Normal 47-70 [facility] Comment on above: Order Comment: 101 Performed By: #### L 100.0100 #### [facility] [address] [place], [address] Nucleated RBC (Bld) [#/Vol] 0 10*3/uL Normal 0-5 [facility] Comment on above: Order Comment: 101 Performed By: #### L 100.0100 #### [facility] [address] [place], [address] Platelet mean volume (Bld) [Entitic vol] 10.9 fL Normal 6.2-12.0 [facility] Comment on above: Order Comment: 101 Performed By: #### L 100.0100 #### [facility] [address] [place], [address] Platelets (Bld) [#/Vol] 181 10*3/uL Normal 150-450 [facility] Comment on above: Order Comment: 101 Performed By: #### L 100.0100 #### [facility] [address] [place], [address] RBC (Bld) [#/Vol] 4.43 10*6/uL Low 4.6-6.2 [facility] Comment on above: Order Comment: 101 Performed By: #### L 100.0100 #### [facility] [address] [place], [address] RDW SD 45.1 fl High 35.1-43.9 [facility] Comment on above: Order Comment: 101 Performed By: #### L 100.0100 #### [facility] [address] [place], [address] WBC (Bld) [#/Vol] 7.0 10*3/uL Normal 4.4-11.0 [facility] Comment on above: Order Comment: 101 Performed By: #### L 100.0100 #### [facility] [address] [place], [address] CBC W/Diff, Automatedon 11-0 4-2023 Absolute Lymph 1.72 X10 3/uL Normal 0.83-4.51 [facility] Comment on above: Order Comment: 101 Performed By: #### L 100.0100 #### [facility] [address] [place], [address] Absolute Neut 4.7 X10 3/uL Normal 2.0-7.7 [facility] Comment on above: Order Comment: 101 Performed By: #### L 100.0100 #### [facility] [address] [place], [address] Basophils/100 WBC (Bld) 0.6 % Normal 0-1 [facility] Comment on above: Order Comment: 101 Performed By: #### L 100.0100 #### [facility] [address] [place], [address] Eosinophils/100 WBC (Bld) 2.8 % Normal 0-5 [facility] Comment on above: Order Comment: 101 Performed By: #### L 100.0100 #### [facility] [address] [place], [address] Erythrocyte distribution width (RBC) [Ratio] 12.9 % Normal 11.6-14.6 [facility] Comment on above: Order Comment: 101 Performed By: #### L 100.0100 #### [facility] [address] [place], [address] Hematocrit (Bld) [Volume fraction] 42.2 % Normal 40-54 [facility] Comment on above: Order Comment: 101 Performed By: #### L 100.0100 #### [facility] [address] [place], [address] Hemoglobin (Bld) [Mass/Vol] 14.3 g/dL Normal 13.0-16.5 [facility] Comment on above: Order Comment: 101 Performed By: #### L 100.0100 #### [facility] [address] [place], [address] IG% 1.100 High 0.0-0.9 [facility] Comment on above: Order Comment: 101 Result Comment: IG% - Immature Granulocytes (promyelocytes, myelocytes and metamyelocytes) > 1% indicates that a LEFT SHIFT is Present. Performed By: #### L 100.0100 #### [facility] [address] [place], [address] Lymphocytes/100 WBC (Bld) 23.7 % Normal 19-41 [facility] Comment on above: Order Comment: 101 Performed By: #### L 100.0100 #### [facility] [address] [place], [address] MCH (RBC) [Entitic mass] 31.6 pg Normal 27.0-32.0 [facility] Comment on above: Order Comment: 101 Performed By: #### L 100.0100 #### [facility] [address] [place], [address] MCHC (RBC) [Mass/Vol] 33.9 g/dL Normal 32-36 [facility] Comment on above: Order Comment: 101 Performed By: #### L 100.0100 #### [facility] [address] [place], [address] MCV (RBC) [Entitic vol] 93.4 fL Normal 80-94 [facility] Comment on above: Order Comment: 101 Performed By: #### L 100.0100 #### [facility] [address] [place], [address] Monocytes/100 WBC (Bld) 7.3 % Normal 0-10 [facility] Comment on above: Order Comment: 101 Performed By: #### L 100.0100 #### [facility] [address] [place], [address] Neutrophils/100 WBC (Bld) 64.5 % Normal 47-70 [facility] Comment on above: Order Comment: 101 Performed By: #### L 100.0100 #### [facility] [address] [place], [address] Nucleated RBC (Bld) [#/Vol] 0 10*3/uL Normal 0-5 [facility] Comment on above: Order Comment: 101 Performed By: #### L 100.0100 #### [facility] [address] [place], [address] Platelet mean volume (Bld) [Entitic vol] 10.9 fL Normal 6.2-12.0 [facility] Comment on above: Order Comment: 101 Performed By: #### L 100.0100 #### [facility] [address] [place], [address] Platelets (Bld) [#/Vol] 160 10*3/uL Normal 150-450 [facility] Comment on above: Order Comment: 101 Performed By: #### L 100.0100 #### [facility] [address] [place], [address] RBC (Bld) [#/Vol] 4.52 10*6/uL Low 4.6-6.2 [facility] Comment on above: Order Comment: 101 Performed By: #### L 100.0100 #### [facility] [address] [place], [address] RDW SD 43.8 fl Normal 35.1-43.9 [facility] Comment on above: Order Comment: 101 Performed By: #### L 100.0100 #### [facility] [address] [place], [address] WBC (Bld) [#/Vol] 7.3 10*3/uL Normal 4.4-11.0 [facility] Comment on above: Order Comment: 101 Performed By: #### L 100.0100 #### [facility] [address] [place], [address] CBC W/Diff, Automatedon 10-0 -2023 Absolute Lymph 1.93 X10 3/uL Normal 0.83-4.51 [facility] Comment on above: Order Comment: 101-1 Performed By: #### L 501.9985, L100.0100 #### [facility] [address] [place], [address] Absolute Neut 4.4 X10 3/uL Normal 2.0-7.7 [facility] Comment on above: Order Comment: 101-1 Performed By: #### L 501.9985, L100.0100 #### [facility] [address] [place], [address] Basophils/100 WBC (Bld) 0.4 % Normal 0-1 [facility] Comment on above: Order Comment: 101-1 Performed By: #### L 501.9985, L100.0100 #### [facility] [address] [place], [address] Eosinophils/100 WBC (Bld) 2.8 % Normal 0-5 [facility] Comment on above: Order Comment: 101-1 Performed By: #### L 501.9985, L100.0100 #### [facility] [address] [place], [address] Erythrocyte distribution width (RBC) [Ratio] 12.9 % Normal 11.6-14.6 [facility] Comment on above: Order Comment: 101-1 Performed By: #### L 501.9985, L100.0100 #### [facility] [address] [place], [address] Hematocrit (Bld) [Volume fraction] 41.6 % Normal 40-54 [facility] Comment on above: Order Comment: 101-1 Performed By: #### L 501.9985, L100.0100 #### [facility] [address] [place], [address] Hemoglobin (Bld) [Mass/Vol] 14.2 g/dL Normal 13.0-16.5 [facility] Comment on above: Order Comment: 101-1 Performed By: #### L 501.9985, L100.0100 #### [facility] [address] [place], [address] IG% 1.100 High 0.0-0.9 [facility] Comment on above: Order Comment: 101-1 Result Comment: IG% - Immature Granulocytes (promyelocytes, myelocytes and metamyelocytes) > 1% indicates that a LEFT SHIFT is Present. Performed By: #### L 501.9985, L100.0100 #### [facility] [address] [place], [address] Lymphocytes/100 WBC (Bld) 26.8 % Normal 19-41 [facility] Comment on above: Order Comment: 101-1 Performed By: #### L 501.9985, L100.0100 #### [facility] [address] [place], [address] MCH (RBC) [Entitic mass] 32.3 pg High 27.0-32.0 [facility] Comment on above: Order Comment: 101-1 Performed By: #### L 501.9985, L100.0100 #### [facility] [address] [place], [address] MCHC (RBC) [Mass/Vol] 34.1 g/dL Normal 32-36 [facility] Comment on above: Order Comment: 101-1 Performed By: #### L 501.9985, L100.0100 #### [facility] [address] [place], [address] MCV (RBC) [Entitic vol] 94.8 fL High 80-94 [facility] Comment on above: Order Comment: 101-1 Performed By: #### L 501.9985, L100.0100 #### [facility] [address] [place], [address] Monocytes/100 WBC (Bld) 7.6 % Normal 0-10 [facility] Comment on above: Order Comment: 101-1 Performed By: #### L 501.9985, L100.0100 #### [facility] [address] [place], [address] Neutrophils/100 WBC (Bld) 61.3 % Normal 47-70 [facility] Comment on above: Order Comment: 101-1 Performed By: #### L 501.9985, L100.0100 #### [facility] [address] [place], [address] Nucleated RBC (Bld) [#/Vol] 0 10*3/uL Normal 0-5 [facility] Comment on above: Order Comment: 101-1 Performed By: #### L 501.9985, L100.0100 #### [facility] [address] [place], [address] Platelet mean volume (Bld) [Entitic vol] 11.3 fL Normal 6.2-12.0 [facility] Comment on above: Order Comment: 101-1 Performed By: #### L 501.9985, L100.0100 #### [facility] [address] [place], [address] Platelets (Bld) [#/Vol] 155 10*3/uL Normal 150-450 [facility] Comment on above: Order Comment: 101-1 Performed By: #### L 501.9985, L100.0100 #### [facility] [address] [place], [address] RBC (Bld) [#/Vol] 4.39 10*6/uL Low 4.6-6.2 [facility] Comment on above: Order Comment: 101-1 Performed By: #### L 501.9985, L100.0100 #### [facility] [address] [place], [address] RDW SD 44.2 fl High 35.1-43.9 [facility] Comment on above: Order Comment: 101-1 Performed By: #### L 501.9985, L100.0100 #### [facility] [address] [place], [address] WBC (Bld) [#/Vol] 7.2 10*3/uL Normal 4.4-11.0 [facility] Comment on above: Order Comment: 101-1 Performed By: #### L 501.9985, L100.0100 #### [facility] [address] [place], [address] Hemoglobin A1con 08-12-2024 HbA1c (Bld) [Mass fraction] 7.8 % High 3.8-5.6 [facility] Comment on above: Order Comment: 101-1 Result Comment: Norm al < 5.7 % Prediabetic 5.7 - 6.4 % Diabetic >or= 6.5 % Please note range changes. Performed By: #### L 501.9985, L100.0100 #### [facility] [address] [place], [address] Basic Metabolic Profile (BMP )on 07-22-2024 BUN/CRE 18.1 RATIO Normal 10-20 [facility] Comment on above: Order Comment: 101 Performed By: #### L 400.0001, M100.2200, L500.4050, L100.0500 #### [facility] [address] [place], [address] CA,Total 8.9 mg/dL Normal 8.5-10.1 [facility] Comment on above: Order Comment: 101 Performed By: #### L 400.0001, M100.2200, L500.4050, L100.0500 #### [facility] [address] [place], [address] Chloride [Moles/Vol] 105 mmol/L Normal 98-107 [place] Comment on above: Order Comment: 101 Performed By: #### L 400.0001, M100.2200, L500.4050, L100.0500 #### [facility] [address] [place], [address] CO2 [Moles/Vol] 23.0 mmol/L Normal 21.0-32.0 [facility] Comment on above: Order Comment: 101 Performed By: #### L 400.0001, M100.2200, L500.4050, L100.0500 #### [facility] [address] [place], [address] Creatinine [Mass/Vol] 1.05 mg/dL Normal 0.70-1.30 [facility] Comment on above: Order Comment: 101 Result Comment: The validity of the calculated GFR GFRAA in patients over 70 years has not been determined. Clinical correlation is essential. Performed By: #### L 400.0001, M100.2200, L500.4050, L100.0500 #### [facility] [address] [place], [address] EST GFR - AA 90 mL/min Normal >60 [facility] Comment on above: Order Comment: 101 Result Comment: Afri can Liberian GFR Calc Performed By: #### L 400.0001, M100.2200, L500.4050, L100.0500 #### [facility] [address] [place], [address] GAP 9 Normal 5-15 [facility] Comment on above: Order Comment: 101 Performed By: #### L 400.0001, M100.2200, L500.4050, L100.0500 #### [facility] [address] [place], [address] GFR/1.73 sq M.predicted among non-blacks MDRD (S/P/Bld) [Vol rate/Area] 74 mL/min/{1.73_m2} Normal >60 [facility] Comment on above: Order Comment: 101 Result Comment: Non- GFR Calc Performed By: #### L 400.0001, M100.2200, L500.4050, L100.0500 #### [facility] [address] [place], [address] Glucose [Mass/Vol] 183 mg/dL High 74-106 [facility] Comment on above: Order Comment: 101 Result Comment: Fast ing Glucose result greater than or equal to 126 mg/dL suggests DIABETES MELLITUS per A.D.A. criteria. Performed By: #### L 400.0001, M100.2200, L500.4050, L100.0500 #### [facility] [address] [place], [address] Potassium [Moles/Vol] 4.2 mmol/L Normal 3.5-5.1 [facility] Comment on above: Order Comment: 101 Result Comment: Slig ht Hemolysis, Result may be falsely increased. Performed By: #### L 400.0001, M100.2200, L500.4050, L100.0500 #### [facility] [address] [place], [address] Sodium [Moles/Vol] 137 mmol/L Normal 136-145 [facility] Comment on above: Order Comment: 101 Performed By: #### L 400.0001, M100.2200, L500.4050, L100.0500 #### [facility] [address] [place], [address] Urea nitrogen [Mass/Vol] 19 mg/dL High 7-18 [facility] Comment on above: Order Comment: 101 Performed By: #### L 400.0001, M100.2200, L500.4050, L100.0500 #### [facility] [address] [place], [address] CBC W/Diff, Automatedon 09-0 -2023 Absolute Lymph 1.50 X10 3/uL Normal 0.83-4.51 [facility] Comment on above: Order Comment: CLEAN CATCH Performed By: #### L 400.0001, M100.2200, L500.4050, L100.0500 #### [facility] [address] [place], [address] Absolute Neut 4.9 X10 3/uL Normal 2.0-7.7 [facility] Comment on above: Order Comment: CLEAN CATCH Performed By: #### L 400.0001, M100.2200, L500.4050, L100.0500 #### [facility] [address] [place], [address] Basophils/100 WBC (Bld) 0.6 % Normal 0-1 [facility] Comment on above: Order Comment: CLEAN CATCH Performed By: #### L 400.0001, M100.2200, L500.4050, L100.0500 #### [facility] [address] [place], [address] Eosinophils/100 WBC (Bld) 2.6 % Normal 0-5 [facility] Comment on above: Order Comment: CLEAN CATCH Performed By: #### L 400.0001, M100.2200, L500.4050, L100.0500 #### [facility] [address] [place], [address] Erythrocyte distribution width (RBC) [Ratio] 13.1 % Normal 11.6-14.6 [facility] Comment on above: Order Comment: CLEAN CATCH Performed By: #### L 400.0001, M100.2200, L500.4050, L100.0500 #### [facility] [address] [place], [address] Hematocrit (Bld) [Volume fraction] 44.4 % Normal 40-54 [facility] Comment on above: Order Comment: CLEAN CATCH Performed By: #### L 400.0001, M100.2200, L500.4050, L100.0500 #### [facility] [address] [place], [address] Hemoglobin (Bld) [Mass/Vol] 14.7 g/dL Normal 13.0-16.5 [facility] Comment on above: Order Comment: CLEAN CATCH Performed By: #### L 400.0001, M100.2200, L500.4050, L100.0500 #### [facility] [address] [place], [address] IG% 1.500 High 0.0-0.9 [facility] Comment on above: Order Comment: CLEAN CATCH Result Comment: IG% - Immature Granulocytes (promyelocytes, myelocytes and metamyelocytes) > 1% indicates that a LEFT SHIFT is Present. Performed By: #### L 400.0001, M100.2200, L500.4050, L100.0500 #### [facility] [address] [place], [address] Lymphocytes/100 WBC (Bld) 20.7 % Normal 19-41 [facility] Comment on above: Order Comment: CLEAN CATCH Performed By: #### L 400.0001, M100.2200, L500.4050, L100.0500 #### [facility] [address] [place], [address] MCH (RBC) [Entitic mass] 31.6 pg Normal 27.0-32.0 [facility] Comment on above: Order Comment: CLEAN CATCH Performed By: #### L 400.0001, M100.2200, L500.4050, L100.0500 #### [facility] [address] [place], [address] MCHC (RBC) [Mass/Vol] 33.1 g/dL Normal 32-36 [facility] Comment on above: Order Comment: CLEAN CATCH Performed By: #### L 400.0001, M100.2200, L500.4050, L100.0500 #### [facility] [address] [place], [address] MCV (RBC) [Entitic vol] 95.5 fL High 80-94 [facility] Comment on above: Order Comment: CLEAN CATCH Performed By: #### L 400.0001, M100.2200, L500.4050, L100.0500 #### [facility] [address] [place], [address] Monocytes/100 WBC (Bld) 7.3 % Normal 0-10 [facility] Comment on above: Order Comment: CLEAN CATCH Performed By: #### L 400.0001, M100.2200, L500.4050, L100.0500 #### [facility] [address] [place], [address] Neutrophils/100 WBC (Bld) 67.3 % Normal 47-70 [facility] Comment on above: Order Comment: CLEAN CATCH Performed By: #### L 400.0001, M100.2200, L500.4050, L100.0500 #### [facility] [address] [place], [address] Nucleated RBC (Bld) [#/Vol] 0 10*3/uL Normal 0-5 [facility] Comment on above: Order Comment: CLEAN CATCH Performed By: #### L 400.0001, M100.2200, L500.4050, L100.0500 #### [facility] [address] [place], [address] Platelet mean volume (Bld) [Entitic vol] 11.1 fL Normal 6.2-12.0 [facility] Comment on above: Order Comment: CLEAN CATCH Performed By: #### L 400.0001, M100.2200, L500.4050, L100.0500 #### [facility] [address] [place], [address] Platelets (Bld) [#/Vol] 176 10*3/uL Normal 150-450 [facility] Comment on above: Order Comment: CLEAN CATCH Performed By: #### L 400.0001, M100.2200, L500.4050, L100.0500 #### [facility] [address] [place], [address] RBC (Bld) [#/Vol] 4.65 10*6/uL Normal 4.6-6.2 [facility] Comment on above: Order Comment: CLEAN CATCH Performed By: #### L 400.0001, M100.2200, L500.4050, L100.0500 #### [facility] [address] [place], [address] RDW SD 46.3 fl High 35.1-43.9 [facility] Comment on above: Order Comment: CLEAN CATCH Performed By: #### L 400.0001, M100.2200, L500.4050, L100.0500 #### [facility] [address] [place], [address] WBC (Bld) [#/Vol] 7.2 10*3/uL Normal 4.4-11.0 [facility] Comment on above: Order Comment: CLEAN CATCH Performed By: #### L 400.0001, M100.2200, L500.4050, L100.0500 #### [facility] [address] [place], [address] Hemoglobin A1con 07-15-2024 HbA1c (Bld) [Mass fraction] 8.2 % High 3.8-5.6 [facility] Comment on above: Order Comment: CLEAN CATCH Result Comment: Norm al < 5.7 % Prediabetic 5.7 - 6.4 % Diabetic >or= 6.5 % Please note range changes. Performed By: #### L 400.0001, M100.2200, L500.4050, L100.0500 #### [facility] [address] [place], [address] CBC-Complete Blood Cnt No Di ffon 06-17-2024 Erythrocyte distribution width (RBC) [Ratio] 13.2 % Normal 11.6-14.6 [facility] Comment on above: Performed By: #### L 501.9985, L100.0500 #### [facility] [address] [place], [address] Hematocrit (Bld) [Volume fraction] 41.8 % Normal 40-54 [facility] Comment on above: Performed By: #### L 501.9985, L100.0500 #### [facility] [address] [place], [address] Hemoglobin (Bld) [Mass/Vol] 14.0 g/dL Normal 13.0-16.5 [facility] Comment on above: Performed By: #### L 501.9985, L100.0500 #### [facility] [address] [place], [address] MCH (RBC) [Entitic mass] 31.7 pg Normal 27.0-32.0 [facility] Comment on above: Performed By: #### L 501.9985, L100.0500 #### [facility] [address] [place], [address] MCHC (RBC) [Mass/Vol] 33.5 g/dL Normal 32-36 [facility] Comment on above: Performed By: #### L 501.9985, L100.0500 #### [facility] [address] [place], [address] MCV (RBC) [Entitic vol] 94.8 fL High 80-94 [facility] Comment on above: Performed By: #### L 501.9985, L100.0500 #### [facility] [address] [place], [address] Platelet mean volume (Bld) [Entitic vol] 11.2 fL Normal 6.2-12.0 [facility] Comment on above: Performed By: #### L 501.9985, L100.0500 #### [facility] [address] [place], [address] Platelets (Bld) [#/Vol] 185 10*3/uL Normal 150-450 [facility] Comment on above: Performed By: #### L 501.9985, L100.0500 #### [facility] [address] [place], [address] RBC (Bld) [#/Vol] 4.41 10*6/uL Low 4.6-6.2 [facility] Comment on above: Performed By: #### L 501.9985, L100.0500 #### [facility] [address] [place], [address] RDW SD 45.4 fl High 35.1-43.9 [facility] Comment on above: Performed By: #### L 501.9985, L100.0500 #### [facility] [address] [place], [address] WBC (Bld) [#/Vol] 7.5 10*3/uL Normal 4.4-11.0 [facility] Comment on above: Performed By: #### L 501.9985, L100.0500 #### [facility] [address] [place], [address] Hemoglobin A1con 06-17-2024 HbA1c (Bld) [Mass fraction] 7.8 % High 3.8-5.6 [facility] Comment on above: Result Comment: Norm al < 5.7 % Prediabetic 5.7 - 6.4 % Diabetic >or= 6.5 % Please note range changes. Performed By: #### L 400.0001, M100.2200, L500.4050, L100.0500 #### [facility] [address] [place], [address] Urine Cultureon 05-28-2024 [facility] UNKNOWN METHOD OF COLLECTION Culture exhibits no growth. Normal [facility] Comment on above: Performed By: #### L 400.0001, M100.2200, L500.4050, L100.0500 #### [facility] [address] [place], [address] Urinalysis, Completeon 05-27 BACTERIA 0 SEEN Normal None Seen [facility] Comment on above: Order Comment: 101 Performed By: #### L 400.0001, M100.2200, L500.4050, L100.0500 #### [facility] [address] [place], [address] EPI,SQUAMOUS 0 SEEN Normal 0-5 [facility] Comment on above: Order Comment: 101 Performed By: #### L 400.0001, M100.2200, L500.4050, L100.0500 #### [facility] [address] [place], [address] Mucus Ql (Urine sed) 0 SEEN Normal [place] Comment on above: Order Comment: 101 Performed By: #### L 400.0001, M100.2200, L500.4050, L100.0500 #### [facility] [address] [place], [address] RBC 0 SEEN Normal 0-5 [facility] Comment on above: Order Comment: 101 Performed By: #### L 400.0001, M100.2200, L500.4050, L100.0500 #### [facility] [address] [place], [address] WBC 0 SEEN Normal 0-5 [facility] Comment on above: Order Comment: 101 Performed By: #### L 400.0001, M100.2200, L500.4050, L100.0500 #### [facility] [address] [place], [address] CBC W/Diff, Automatedon 05-06 Absolute Lymph 1.90 X10 3/uL Normal 0.83-4.51 [facility] Comment on above: Order Comment: CLEAN CATCH Performed By: #### L 400.0001, M100.2200, L500.4050, L100.0500 #### [facility] [address] [place], [address] Absolute Neut 4.2 X10 3/uL Normal 2.0-7.7 [facility] Comment on above: Order Comment: CLEAN CATCH Performed By: #### L 400.0001, M100.2200, L500.4050, L100.0500 #### [facility] [address] [place], [address] Basophils/100 WBC (Bld) 0.9 % Normal 0-1 [facility] Comment on above: Order Comment: CLEAN CATCH Performed By: #### L 400.0001, M100.2200, L500.4050, L100.0500 #### [facility] [address] [place], [address] Eosinophils/100 WBC (Bld) 3.3 % Normal 0-5 [facility] Comment on above: Order Comment: CLEAN CATCH Performed By: #### L 400.0001, M100.2200, L500.4050, L100.0500 #### [facility] [address] [place], [address] Erythrocyte distribution width (RBC) [Ratio] 12.9 % Normal 11.6-14.6 [facility] Comment on above: Order Comment: CLEAN CATCH Performed By: #### L 400.0001, M100.2200, L500.4050, L100.0500 #### [facility] [address] [place], [address] Hematocrit (Bld) [Volume fraction] 40.9 % Normal 40-54 [facility] Comment on above: Order Comment: CLEAN CATCH Performed By: #### L 400.0001, M100.2200, L500.4050, L100.0500 #### [facility] [address] [place], [address] Hemoglobin (Bld) [Mass/Vol] 14.0 g/dL Normal 13.0-16.5 [facility] Comment on above: Order Comment: CLEAN CATCH Performed By: #### L 400.0001, M100.2200, L500.4050, L100.0500 #### [facility] [address] [place], [address] IG% 1.100 High 0.0-0.9 [facility] Comment on above: Order Comment: CLEAN CATCH Result Comment: IG% - Immature Granulocytes (promyelocytes, myelocytes and metamyelocytes) > 1% indicates that a LEFT SHIFT is Present. Performed By: #### L 400.0001, M100.2200, L500.4050, L100.0500 #### [facility] [address] [place], [address] Lymphocytes/100 WBC (Bld) 27.1 % Normal 19-41 [facility] Comment on above: Order Comment: CLEAN CATCH Performed By: #### L 400.0001, M100.2200, L500.4050, L100.0500 #### [facility] [address] [place], [address] MCH (RBC) [Entitic mass] 31.6 pg Normal 27.0-32.0 [facility] Comment on above: Order Comment: CLEAN CATCH Performed By: #### L 400.0001, M100.2200, L500.4050, L100.0500 #### [facility] [address] [place], [address] MCHC (RBC) [Mass/Vol] 34.2 g/dL Normal 32-36 [facility] Comment on above: Order Comment: CLEAN CATCH Performed By: #### L 400.0001, M100.2200, L500.4050, L100.0500 #### [facility] [address] [place], [address] MCV (RBC) [Entitic vol] 92.3 fL Normal 80-94 [facility] Comment on above: Order Comment: CLEAN CATCH Performed By: #### L 400.0001, M100.2200, L500.4050, L100.0500 #### [facility] [address] [place], [address] Monocytes/100 WBC (Bld) 8.0 % Normal 0-10 [facility] Comment on above: Order Comment: CLEAN CATCH Performed By: #### L 400.0001, M100.2200, L500.4050, L100.0500 #### [facility] [address] [place], [address] Neutrophils/100 WBC (Bld) 59.6 % Normal 47-70 [facility] Comment on above: Order Comment: CLEAN CATCH Performed By: #### L 400.0001, M100.2200, L500.4050, L100.0500 #### [facility] [address] [place], [address] Nucleated RBC (Bld) [#/Vol] 0 10*3/uL Normal 0-5 [facility] Comment on above: Order Comment: CLEAN CATCH Performed By: #### L 400.0001, M100.2200, L500.4050, L100.0500 #### [facility] [address] [place], [address] Platelet mean volume (Bld) [Entitic vol] 11.0 fL Normal 6.2-12.0 [facility] Comment on above: Order Comment: CLEAN CATCH Performed By: #### L 400.0001, M100.2200, L500.4050, L100.0500 #### [facility] [address] [place], [address] Platelets (Bld) [#/Vol] 159 10*3/uL Normal 150-450 [facility] Comment on above: Order Comment: CLEAN CATCH Performed By: #### L 400.0001, M100.2200, L500.4050, L100.0500 #### [facility] [address] [place], [address] RBC (Bld) [#/Vol] 4.43 10*6/uL Low 4.6-6.2 [facility] Comment on above: Order Comment: CLEAN CATCH Performed By: #### L 400.0001, M100.2200, L500.4050, L100.0500 #### [facility] [address] [place], [address] RDW SD 43.6 fl Normal 35.1-43.9 [facility] Comment on above: Order Comment: CLEAN CATCH Performed By: #### L 400.0001, M100.2200, L500.4050, L100.0500 #### [facility] [address] [place], [address] WBC (Bld) [#/Vol] 7.0 10*3/uL Normal 4.4-11.0 [facility] Comment on above: Order Comment: CLEAN CATCH Performed By: #### L 400.0001, M100.2200, L500.4050, L100.0500 #### [facility] [address] [place], [address] Hemoglobin A1con 05-17-2024 HbA1c (Bld) [Mass fraction] 7.4 % High 3.8-5.6 [facility] Comment on above: Order Comment: CLEAN CATCH Result Comment: Norm al < 5.7 % Prediabetic 5.7 - 6.4 % Diabetic >or= 6.5 % Please note range changes. Performed By: #### L 400.0001, M100.2200, L500.4050, L100.0500 #### [facility] [address] [place], [address] CBC W/Diff, Automatedon 04-06-2023 Absolute Lymph 1.42 X10 3/uL Normal 0.83-4.51 [facility] Comment on above: Order Comment: 101 Performed By: #### L 400.0001, M100.2200, L500.4050, L100.0500 #### [facility] [address] [place], [address] Absolute Neut 6.4 X10 3/uL Normal 2.0-7.7 [facility] Comment on above: Order Comment: 101 Performed By: #### L 400.0001, M100.2200, L500.4050, L100.0500 #### [facility] [address] [place], [address] Basophils/100 WBC (Bld) 0.7 % Normal 0-1 [facility] Comment on above: Order Comment: 101 Performed By: #### L 400.0001, M100.2200, L500.4050, L100.0500 #### [facility] [address] [place], [address] Eosinophils/100 WBC (Bld) 3.3 % Normal 0-5 [facility] Comment on above: Order Comment: 101 Performed By: #### L 400.0001, M100.2200, L500.4050, L100.0500 #### [facility] [address] [place], [address] Erythrocyte distribution width (RBC) [Ratio] 13.2 % Normal 11.6-14.6 [facility] Comment on above: Order Comment: 101 Performed By: #### L 400.0001, M100.2200, L500.4050, L100.0500 #### [facility] [address] [place], [address] Hematocrit (Bld) [Volume fraction] 41.5 % Normal 40-54 [facility] Comment on above: Order Comment: 101 Performed By: #### L 400.0001, M100.2200, L500.4050, L100.0500 #### [facility] [address] [place], [address] Hemoglobin (Bld) [Mass/Vol] 13.8 g/dL Normal 13.0-16.5 [facility] Comment on above: Order Comment: 101 Performed By: #### L 400.0001, M100.2200, L500.4050, L100.0500 #### [facility] [address] [place], [address] IG% 0.700 Normal 0.0-0.9 [facility] Comment on above: Order Comment: 101 Result Comment: IG% - Immature Granulocytes (promyelocytes, myelocytes and metamyelocytes) > 1% indicates that a LEFT SHIFT is Present. Performed By: #### L 400.0001, M100.2200, L500.4050, L100.0500 #### [facility] [address] [place], [address] Lymphocytes/100 WBC (Bld) 16.3 % Low 19-41 [facility] Comment on above: Order Comment: 101 Performed By: #### L 400.0001, M100.2200, L500.4050, L100.0500 #### [facility] [address] [place], [address] MCH (RBC) [Entitic mass] 31.3 pg Normal 27.0-32.0 [facility] Comment on above: Order Comment: 101 Performed By: #### L 400.0001, M100.2200, L500.4050, L100.0500 #### [facility] [address] [place], [address] MCHC (RBC) [Mass/Vol] 33.3 g/dL Normal 32-36 [facility] Comment on above: Order Comment: 101 Performed By: #### L 400.0001, M100.2200, L500.4050, L100.0500 #### [facility] [address] [place], [address] MCV (RBC) [Entitic vol] 94.1 fL High 80-94 [facility] Comment on above: Order Comment: 101 Performed By: #### L 400.0001, M100.2200, L500.4050, L100.0500 #### [facility] [address] [place], [address] Monocytes/100 WBC (Bld) 6.2 % Normal 0-10 [facility] Comment on above: Order Comment: 101 Performed By: #### L 400.0001, M100.2200, L500.4050, L100.0500 #### [facility] [address] [place], [address] Neutrophils/100 WBC (Bld) 72.8 % High 47-70 [facility] Comment on above: Order Comment: 101 Performed By: #### L 400.0001, M100.2200, L500.4050, L100.0500 #### [facility] [address] [place], [address] Nucleated RBC (Bld) [#/Vol] 0 10*3/uL Normal 0-5 [facility] Comment on above: Order Comment: 101 Performed By: #### L 400.0001, M100.2200, L500.4050, L100.0500 #### [facility] [address] [place], [address] Platelet mean volume (Bld) [Entitic vol] 10.8 fL Normal 6.2-12.0 [facility] Comment on above: Order Comment: 101 Performed By: #### L 400.0001, M100.2200, L500.4050, L100.0500 #### [facility] [address] [place], [address] Platelets (Bld) [#/Vol] 165 10*3/uL Normal 150-450 [facility] Comment on above: Order Comment: 101 Performed By: #### L 400.0001, M100.2200, L500.4050, L100.0500 #### [facility] [address] [place], [address] RBC (Bld) [#/Vol] 4.41 10*6/uL Low 4.6-6.2 [facility] Comment on above: Order Comment: 101 Performed By: #### L 400.0001, M100.2200, L500.4050, L100.0500 #### [facility] [address] [place], [address] RDW SD 45.2 fl High 35.1-43.9 [facility] Comment on above: Order Comment: 101 Performed By: #### L 400.0001, M100.2200, L500.4050, L100.0500 #### [facility] [address] [place], [address] WBC (Bld) [#/Vol] 8.7 10*3/uL Normal 4.4-11.0 [facility] Comment on above: Order Comment: 101 Performed By: #### L 400.0001, M100.2200, L500.4050, L100.0500 #### [facility] [address] [place], [address] Absolute Neut Normal 2.0-7.7 [facility] Comment on above: Result Comment: This specimen has been REJECTED due to Laboratory criteria: Clotted. OUTREACH has been notified of need of recollection. 04/19/24838 Pérez R Stoner Performed By: #### L 400.0001, M100.2200, L500.4050, L100.0500 #### [facility] [address] [place], [address] HCT Normal 40-54 [facility] Comment on above: Result Comment: This specimen has been REJECTED due to Laboratory criteria: Clotted. OUTREACH has been notified of need of recollection. 04/19/24838 Pérez R Stoner Performed By: #### L 400.0001, M100.2200, L500.4050, L100.0500 #### [facility] [address] [place], [address] HGB Normal 13.0-16.5 [facility] Comment on above: Result Comment: This specimen has been REJECTED due to Laboratory criteria: Clotted. OUTREACH has been notified of need of recollection. 04/19/24838 Pérez R Stoner Performed By: #### L 400.0001, M100.2200, L500.4050, L100.0500 #### [facility] [address] [place], [address] MCH Normal 27.0-32.0 [facility] Comment on above: Result Comment: This specimen has been REJECTED due to Laboratory criteria: Clotted. OUTREACH has been notified of need of recollection. 04/19/24838 Pérez R Stoner Performed By: #### L 400.0001, M100.2200, L500.4050, L100.0500 #### [facility] [address] [place], [address] MCHC Normal 32-36 [facility] Comment on above: Result Comment: This specimen has been REJECTED due to Laboratory criteria: Clotted. OUTREACH has been notified of need of recollection. 04/19/24838 Pérez R Stoner Performed By: #### L 400.0001, M100.2200, L500.4050, L100.0500 #### [facility] [address] [place], [address] MCV Normal 80-94 [facility] Comment on above: Result Comment: This specimen has been REJECTED due to Laboratory criteria: Clotted. OUTREACH has been notified of need of recollection. 04/19/2439 Pérez R Stoner Performed By: #### L 400.0001, M100.2200, L500.4050, L100.0500 #### [facility] [address] [place], [address] NEUT% Normal 47-70 [facility] Comment on above: Result Comment: This specimen has been REJECTED due to Laboratory criteria: Clotted. OUTREACH has been notified of need of recollection. 04/19/24838 Pérez R Stoner Performed By: #### L 400.0001, M100.2200, L500.4050, L100.0500 #### [facility] [address] [place], [address] PLT Normal 150-450 [facility] Comment on above: Result Comment: This specimen has been REJECTED due to Laboratory criteria: Clotted. OUTREACH has been notified of need of recollection. 04/19/24838 Pérez R Stoner Performed By: #### L 400.0001, M100.2200, L500.4050, L100.0500 #### [facility] [address] [place], [address] RBC Normal 4.6-6.2 [facility] Comment on above: Result Comment: This specimen has been REJECTED due to Laboratory criteria: Clotted. OUTREACH has been notified of need of recollection. 04/19/24838 Pérez R Stoner Performed By: #### L 400.0001, M100.2200, L500.4050, L100.0500 #### [facility] [address] [place], [address] RDW CV Normal 11.6-14.6 [facility] Comment on above: Result Comment: This specimen has been REJECTED due to Laboratory criteria: Clotted. OUTREACH has been notified of need of recollection. 04/19/2439 Pérez Bandar Performed By: #### L 400.0001, M100.2200, L500.4050, L100.0500 #### [facility] [address] [place], [address] RDW SD Normal 35.1-43.9 [facility] Comment on above: Result Comment: This specimen has been REJECTED due to Laboratory criteria: Clotted. OUTREACH has been notified of need of recollection. 04/19/2439 Pérez Bandar Performed By: #### L 400.0001, M100.2200, L500.4050, L100.0500 #### [facility] [address] [place], [address] WBC Normal 4.4-11.0 [facility] Comment on above: Result Comment: This specimen has been REJECTED due to Laboratory criteria: Clotted. OUTREACH has been notified of need of recollection. 04/19/2439 Pérez Bandar Performed By: #### L 400.0001, M100.2200, L500.4050, L100.0500 #### [facility] [address] [place], [address] Hemoglobin A1con 04-19-2024 HbA1c (Bld) [Mass fraction] 7.3 % High 3.8-5.6 [facility] Comment on above: Result Comment: Norm al < 5.7 % Prediabetic 5.7 - 6.4 % Diabetic >or= 6.5 % Please note range changes. Performed By: #### L 400.0001, M100.2200, L500.4050, L100.0500 #### [facility] [address] [place], [address] Absolute lymphocyte countOrd ered By: Lynn Zurita on 02-23-2024 Lymphocytes Auto (Unsp spec) [#/Vol] 1.93 10*3/uL 0.83-4.51 [facility] Automated lymphocyte count a s percentage of total leukocytesOrdered By: Lynn Zurita on 02-23-2024 Lymphocytes/100 WBC Auto (Unsp spec) 25.3 % 19-41 [facility] Basophil percentageOrdered B y: Lynn Zurita on 02-23-2024 Basophils/100 WBC (Bld) 1.0 % 0-1 [facility] Bilirubin [Mass/Vol] 0.30 mg/dL 0.20-1.00 [place] Comment on above: For patients on eltr ombopag therapy, use of Dimension [place] TBIL is not recommended. Chloride [Moles/Vol] 107 mmol/L 98-107 [place] Eosinophils/100 WBC (Bld) 2.7 % 0-5 [facility] Glucose [Mass/Vol] 147 mg/dL 74-106 [facility] Comment on above: Fasting Glucose resu lt greater than or equal to 126 mg/dL suggests DIABETES MELLITUS per A.D.A. criteria. Hemoglobin (Bld) [Mass/Vol] 14.8 g/dL 13.0-16.5 [facility] Monocytes/100 WBC (Bld) 8.2 % 0-10 [facility] Neutrophils (Bld) [#/Vol] 4.7 10*3/uL 2.0-7.7 [facility] Neutrophils/100 WBC (Bld) 61.5 % 47-70 [facility] Potassium [Moles/Vol] 3.9 mmol/L 3.5-5.1 [facility] Protein [Mass/Vol] 6.9 g/dL 6.4-8.2 [facility] Sodium [Moles/Vol] 141 mmol/L 136-145 [facility] WBC (Bld) [#/Vol] 7.6 10*3/uL 4.4-11.0 [facility] Determination of erythrocyte mean corpuscular volume (MCV)Ordered By: Lynn Zurita on 02-23-2024 MCV (RBC) [Entitic vol] 94.1 fL 80-94 [facility] Erythrocyte distribution wid th ratioOrdered By: Lynn Zurita on 02-23-2024 Erythrocyte distribution width (RBC) [Ratio] 12.9 % 11.6-14.6 [facility] Erythrocyte distribution wid th standard deviationOrdered By: Lynnluke Zurita on 02-23-2024 Erythrocyte distribution width (RBC) [Entitic vol] 44.2 fL 35.1-43.9 [facility] Hematocrit Auto (Bld) [Volum e fraction]Ordered By: Lynn Zurita on 02-23-2024 Hematocrit (Bld) [Volume fraction] 44.3 % 40-54 [facility] Immature granulocytes/100 WB C Auto (Bld)Ordered By: Lynnluke Zurita on 02-23-2024 Immature granulocytes/100 WBC (Bld) 1.300 % 0.0-0.9 [facility] Comment on above: IG% - Immature Granu locytes (promyelocytes, myelocytes and metamyelocytes) > 1% indicates that a LEFT SHIFT is Present. Laboratory - Chemistry and C hemistry - challengeOrdered By: Lynn Zurita on 02-23-2024 Albumin/Globulin [Mass ratio] 1.1 {ratio} 0.9-2.4 [facility] ALP [Catalytic activity/Vol] 81 U/L 45-117 [facility] ALT [Catalytic activity/Vol] 75 U/L 16-61 [facility] CO2 [Moles/Vol] 25.0 mmol/L 21.0-32.0 [facility] Globulin (S) [Mass/Vol] 3.3 g/dL 2.2-4.2 [facility] Lipase [Catalytic activity/Vol] 70 U/L 13-75 [facility] Comment on above: Please note:LIPASE r evised reference range effective 23. New Lipase methodology. Expected to produce lower values than the previous assay method. NEW Reference Range: 13 - 75 U/L Urea nitrogen/Creatinine [Mass ratio] 11.8 mg/mg 10-20 [facility] - Hematology and Cell countsOrdered By: Lynn Zurita on 02-23-2024 MCH (RBC) [Entitic mass] 31.4 pg 27.0-32.0 [facility] MCHC (RBC) [Mass/Vol] 33.4 g/dL 32-36 [facility] Nucleated RBC/100 WBC (Bld) [Ratio] 0 % 0-5 [facility] Platelet mean volume (Bld) [Entitic vol] 10.9 fL 6.2-12.0 [facility] Platelets (Bld) [#/Vol] 185 10*3/uL 150-450 [facility] No Panel InformationOrdered By: Lynn Zurita on 02-23-2024 Estimated GFR (MDRD) Amer 93 mL/min >60 [facility] Comment on above: GFR Calc Estimated GFR (MDRD) Non-Af Amer 77 mL/min >60 [facility] Comment on above: Non- GFR Calc RBC Auto (Bld) [#/Vol]Ordere d By: Lynn Zurita on 02-23-2024 RBC (Bld) [#/Vol] 4.71 10*6/uL 4.6-6.2 [facility] Serum or plasma calcium federico urement (mass/volume)Ordered By: Lynn Zurita on 02-23-2024 Calcium [Mass/Vol] 8.9 mg/dL 8.5-10.1 [facility] Serum or plasma creatinine m easurement (mass/volume)Ordered By: Lynn Zurita on 02-23-2024 Creatinine [Mass/Vol] 1.02 mg/dL 0.70-1.30 [facility] Comment on above: The validity of the calculated GFR & GFRAA in patients over 70 years has not been determined. Clinical correlation is essential. Serum or plasma urea nitroge n measurement (mass/volume)Ordered By: Lynn Zurita on 02-23-2024 Urea nitrogen [Mass/Vol] 12 mg/dL 7-18 [facility] Thin prep Papanicolaou smear with manual screeningOrdered By: Lynn Zurita on 02-23-2024 Thin prep Papanicolaou smear with manual screening 3.6 g/dL 3.2-5.0 [facility] Thin prep Papanicolaou smear with manual screening 36 U/L 15-37 [facility] Thin prep Papanicolaou smear with manual screening 9 5-15 [facility] Absolute lymphocyte countOrd ered By: Lynn Zurita on 01-25-2024 Lymphocytes Auto (Unsp spec) [#/Vol] 2.04 10*3/uL 0.83-4.51 [facility] Automated lymphocyte count a s percentage of total leukocytesOrdered By: Lynn Zurita on 01-25-2024 Lymphocytes/100 WBC Auto (Unsp spec) 26.4 % 19-41 [facility] Basophil percentageOrdered B y: Lynn Zurita on 01-25-2024 Basophils/100 WBC (Bld) 0.8 % 0-1 [facility] Eosinophils/100 WBC (Bld) 2.5 % 0-5 [facility] Hemoglobin (Bld) [Mass/Vol] 14.7 g/dL 13.0-16.5 [facility] Monocytes/100 WBC (Bld) 6.6 % 0-10 [facility] Neutrophils (Bld) [#/Vol] 4.8 10*3/uL 2.0-7.7 [facility] Neutrophils/100 WBC (Bld) 62.4 % 47-70 [facility] WBC (Bld) [#/Vol] 7.7 10*3/uL 4.4-11.0 [facility] Determination of erythrocyte mean corpuscular volume (MCV)Ordered By: Lynn Zurita on 01-25-2024 MCV (RBC) [Entitic vol] 95.1 fL 80-94 [facility] Erythrocyte distribution wid th ratioOrdered By: Lynn Zurita on 01-25-2024 Erythrocyte distribution width (RBC) [Ratio] 13.0 % 11.6-14.6 [facility] Erythrocyte distribution wid th standard deviationOrdered By: Lynnluke Zurita on 01-25-2024 Erythrocyte distribution width (RBC) [Entitic vol] 45.4 fL 35.1-43.9 [facility] Hematocrit Auto (Bld) [Volum e fraction]Ordered By: Lynn Zurita on 01-25-2024 Hematocrit (Bld) [Volume fraction] 44.9 % 40-54 [facility] Immature granulocytes/100 WB C Auto (Bld)Ordered By: Lynn Zurita on 01-25-2024 Immature granulocytes/100 WBC (Bld) 1.300 % 0.0-0.9 [facility] Comment on above: IG% - Immature Granu locytes (promyelocytes, myelocytes and metamyelocytes) > 1% indicates that a LEFT SHIFT is Present. Laboratory - Hematology and Cell countsOrdered By: Lynn Zurita on 01-25-2024 MCH (RBC) [Entitic mass] 31.1 pg 27.0-32.0 [facility] MCHC (RBC) [Mass/Vol] 32.7 g/dL 32-36 [facility] Nucleated RBC/100 WBC (Bld) [Ratio] 0 % 0-5 [facility] Platelet mean volume (Bld) [Entitic vol] 11.1 fL 6.2-12.0 [facility] Platelets (Bld) [#/Vol] 192 10*3/uL 150-450 [facility] RBC Auto (Bld) [#/Vol]Ordere d By: Lynn Zurita on 01-25-2024 RBC (Bld) [#/Vol] 4.72 10*6/uL 4.6-6.2 [facility] Absolute lymphocyte countOrd ered By: Lynn Zurita on 12-28-2023 Lymphocytes Auto (Unsp spec) [#/Vol] 1.63 10*3/uL 0.83-4.51 [facility] Automated lymphocyte count a s percentage of total leukocytesOrdered By: Lynn Zurita on 12-28-2023 Lymphocytes/100 WBC Auto (Unsp spec) 21.3 % 19-41 [facility] Basophil percentageOrdered B y: Lynn Zurita on 12-28-2023 Basophils/100 WBC (Bld) 0.8 % 0-1 [facility] Eosinophils/100 WBC (Bld) 3.5 % 0-5 [facility] Hemoglobin (Bld) [Mass/Vol] 14.7 g/dL 13.0-16.5 [facility] Monocytes/100 WBC (Bld) 8.1 % 0-10 [facility] Neutrophils (Bld) [#/Vol] 5.0 10*3/uL 2.0-7.7 [facility] Neutrophils/100 WBC (Bld) 65.0 % 47-70 [facility] WBC (Bld) [#/Vol] 7.7 10*3/uL 4.4-11.0 [facility] Determination of erythrocyte mean corpuscular volume (MCV)Ordered By: Lynn Zurita on 12-28-2023 MCV (RBC) [Entitic vol] 94.6 fL 80-94 [facility] Erythrocyte distribution wid th ratioOrdered By: Lynn Zurita on 12-28-2023 Erythrocyte distribution width (RBC) [Ratio] 13.2 % 11.6-14.6 [facility] Erythrocyte distribution wid th standard deviationOrdered By: Lynn Zurita on 12-28-2023 Erythrocyte distribution width (RBC) [Entitic vol] 45.2 fL 35.1-43.9 [facility] Hematocrit Auto (Bld) [Volum e fraction]Ordered By: Lynn Zurita on 12-28-2023 Hematocrit (Bld) [Volume fraction] 44.1 % 40-54 [facility] Immature granulocytes/100 WB C Auto (Bld)Ordered By: Lynn Zurita on 12-28-2023 Immature granulocytes/100 WBC (Bld) 1.300 % 0.0-0.9 [facility] Comment on above: IG% - Immature Granu locytes (promyelocytes, myelocytes and metamyelocytes) > 1% indicates that a LEFT SHIFT is Present. Laboratory - Hematology and Cell countsOrdered By: Lynn Zurita on 12-28-2023 MCH (RBC) [Entitic mass] 31.5 pg 27.0-32.0 [facility] MCHC (RBC) [Mass/Vol] 33.3 g/dL 32-36 [facility] Nucleated RBC/100 WBC (Bld) [Ratio] 0 % 0-5 [facility] Platelet mean volume (Bld) [Entitic vol] 11.2 fL 6.2-12.0 [facility] Platelets (Bld) [#/Vol] 175 10*3/uL 150-450 [facility] RBC Auto (Bld) [#/Vol]Ordere d By: Lynn Zurita on 12-28-2023 RBC (Bld) [#/Vol] 4.66 10*6/uL 4.6-6.2 [facility] Absolute lymphocyte countOrd ered By: Lynn Zurita on 12-01-2023 Lymphocytes Auto (Unsp spec) [#/Vol] 1.42 10*3/uL 0.83-4.51 [facility] Automated lymphocyte count a s percentage of total leukocytesOrdered By: Lynn Zurita on 12-01-2023 Lymphocytes/100 WBC Auto (Unsp spec) 21.4 % 19-41 [facility] Basophil percentageOrdered B y: Lynn Zurita on 12-01-2023 Basophils/100 WBC (Bld) 0.8 % 0-1 [facility] Eosinophils/100 WBC (Bld) 4.2 % 0-5 [facility] Hemoglobin (Bld) [Mass/Vol] 13.6 g/dL 13.0-16.5 [facility] Monocytes/100 WBC (Bld) 9.2 % 0-10 [facility] Neutrophils (Bld) [#/Vol] 4.2 10*3/uL 2.0-7.7 [facility] Neutrophils/100 WBC (Bld) 62.6 % 47-70 [facility] WBC (Bld) [#/Vol] 6.6 10*3/uL 4.4-11.0 [facility] Determination of erythrocyte mean corpuscular volume (MCV)Ordered By: Lynn Zurita on 12-01-2023 MCV (RBC) [Entitic vol] 94.4 fL 80-94 [facility] Erythrocyte distribution wid th ratioOrdered By: Lynn Zurita on 12-01-2023 Erythrocyte distribution width (RBC) [Ratio] 13.2 % 11.6-14.6 [facility] Erythrocyte distribution wid th standard deviationOrdered By: Lynn Zurita on 12-01-2023 Erythrocyte distribution width (RBC) [Entitic vol] 45.2 fL 35.1-43.9 [facility] Hematocrit Auto (Bld) [Volum e fraction]Ordered By: Lynn Zurita on 12-01-2023 Hematocrit (Bld) [Volume fraction] 40.7 % 40-54 [facility] Immature granulocytes/100 WB C Auto (Bld)Ordered By: Lynn Zurita on 12-01-2023 Immature granulocytes/100 WBC (Bld) 1.800 % 0.0-0.9 [facility] Comment on above: IG% - Immature Granu locytes (promyelocytes, myelocytes and metamyelocytes) > 1% indicates that a LEFT SHIFT is Present. Laboratory - Hematology and Cell countsOrdered By: Lynn Zurita on 12-01-2023 MCH (RBC) [Entitic mass] 31.6 pg 27.0-32.0 [facility] MCHC (RBC) [Mass/Vol] 33.4 g/dL 32-36 [facility] Nucleated RBC/100 WBC (Bld) [Ratio] 0 % 0-5 [facility] Platelets (Bld) [#/Vol] 185 10*3/uL 150-450 [facility] Platelet mean volume Link-Ec ker (Bld) [Entitic vol]Ordered By: Lynn Zurita on 12-01-2023 Platelet mean volume (Bld) [Entitic vol] 11.1 fL 6.2-12.0 [facility] RBC Auto (Bld) [#/Vol]Ordere d By: Lynn Zurita on 12-01-2023 RBC (Bld) [#/Vol] 4.31 10*6/uL 4.6-6.2 [facility] Absolute lymphocyte countOrd ered By: Lynn Zurita on 11-30-2023 Lymphocytes Auto (Unsp spec) [#/Vol] 1.65 10*3/uL 0.83-4.51 [facility] Automated lymphocyte count a s percentage of total leukocytesOrdered By: Lynn Zurita on 11-30-2023 Lymphocytes/100 WBC Auto (Unsp spec) 28.8 % 19-41 [facility] Basophil percentageOrdered B y: Lynn Zurita on 11-30-2023 Basophils/100 WBC (Bld) 0.5 % 0-1 [facility] Eosinophils/100 WBC (Bld) 3.8 % 0-5 [facility] Hemoglobin (Bld) [Mass/Vol] 13.3 g/dL 13.0-16.5 [facility] Monocytes/100 WBC (Bld) 11.0 % 0-10 [facility] Neutrophils (Bld) [#/Vol] 3.1 10*3/uL 2.0-7.7 [facility] Neutrophils/100 WBC (Bld) 54.9 % 47-70 [facility] WBC (Bld) [#/Vol] 5.7 10*3/uL 4.4-11.0 [facility] Determination of erythrocyte mean corpuscular volume (MCV)Ordered By: Lynn Zurita on 11-30-2023 MCV (RBC) [Entitic vol] 95.2 fL 80-94 [facility] Erythrocyte distribution wid th ratioOrdered By: Lynnluke Zurita on 11-30-2023 Erythrocyte distribution width (RBC) [Ratio] 13.3 % 11.6-14.6 [facility] Erythrocyte distribution wid th standard deviationOrdered By: Lynn Zurita on 11-30-2023 Erythrocyte distribution width (RBC) [Entitic vol] 46.9 fL 35.1-43.9 [facility] Hematocrit Auto (Bld) [Volum e fraction]Ordered By: Lynn Zurita on 11-30-2023 Hematocrit (Bld) [Volume fraction] 39.7 % 40-54 [facility] Immature granulocytes/100 WB C Auto (Bld)Ordered By: Lynn Zurita on 11-30-2023 Immature granulocytes/100 WBC (Bld) 1.000 % 0.0-0.9 [facility] Comment on above: IG% - Immature Granu locytes (promyelocytes, myelocytes and metamyelocytes) > 1% indicates that a LEFT SHIFT is Present. Laboratory - Hematology and Cell countsOrdered By: Lynn Zurita on 11-30-2023 MCH (RBC) [Entitic mass] 31.9 pg 27.0-32.0 [facility] MCHC (RBC) [Mass/Vol] 33.5 g/dL 32-36 [facility] Nucleated RBC/100 WBC (Bld) [Ratio] 0 % 0-5 [facility] Platelets (Bld) [#/Vol] 171 10*3/uL 150-450 [facility] Platelet mean volume Link-Ec ker (Bld) [Entitic vol]Ordered By: Lynn Zurita on 11-30-2023 Platelet mean volume (Bld) [Entitic vol] 10.8 fL 6.2-12.0 [facility] RBC Auto (Bld) [#/Vol]Ordere d By: Lynn Zurita on 11-30-2023 RBC (Bld) [#/Vol] 4.17 10*6/uL 4.6-6.2 [facility] Absolute lymphocyte countOrd ered By: Lynn Zurita on 11-02-2023 Lymphocytes Auto (Unsp spec) [#/Vol] 1.74 10*3/uL 0.83-4.51 [facility] Basophil percentageOrdered B y: Lynn Zurita on 11-02-2023 Basophils/100 WBC (Bld) 0.5 % 0-1 [facility] Eosinophils/100 WBC (Bld) 2.6 % 0-5 [facility] Neutrophils (Bld) [#/Vol] 5.0 10*3/uL 2.0-7.7 [facility] Neutrophils/100 WBC (Bld) 65.7 % 47-70 [facility] WBC (Bld) [#/Vol] 7.6 10*3/uL 4.4-11.0 [facility] Blood erythrocytes count (nu mber/volume)Ordered By: Lynn Zurita on 11-02-2023 RBC (Bld) [#/Vol] 4.31 10*6/uL 4.6-6.2 [facility] Blood hemoglobin measurement (mass/volume)Ordered By: Lynn Zurita on 11-02-2023 Hemoglobin (Bld) [Mass/Vol] 13.5 g/dL 13.0-16.5 [facility] Blood lymphocytes/100 leukoc ytesOrdered By: Lynn Zurita on 11-02-2023 Lymphocytes/100 WBC (Bld) 23.0 % 19-41 [facility] Blood monocytes/100 leukocyt esOrdered By: Lynn Zurita on 12-28-2023 Monocytes/100 WBC (Bld) 7.0 % 0-10 [facility] Blood platelet mean volumeOr dered By: Lynn Zurita on 11-02-2023 Platelet mean volume (Bld) [Entitic vol] 11.0 fL 6.2-12.0 [facility] Determination of erythrocyte mean corpuscular volume (MCV)Ordered By: Lynn Zurita on 11-02-2023 MCV (RBC) [Entitic vol] 95.4 fL 80-94 [facility] Hematocrit Auto (Bld) [Volum e fraction]Ordered By: Lynn Zurita on 11-02-2023 Hematocrit (Bld) [Volume fraction] 41.1 % 40-54 [facility] Laboratory - Hematology and Cell countsOrdered By: Lynn Zurita on 11-02-2023 Erythrocyte distribution width (RBC) [Entitic vol] 47.2 fL 35.1-43.9 [facility] Erythrocyte distribution width (RBC) [Ratio] 13.3 % 11.6-14.6 [facility] Immature granulocytes/100 WBC (Bld) 1.200 % 0.0-0.9 [facility] Comment on above: IG% - Immature Granu locytes (promyelocytes, myelocytes and metamyelocytes) > 1% indicates that a LEFT SHIFT is Present. MCH (RBC) [Entitic mass] 31.3 pg 27.0-32.0 [facility] Nucleated RBC/100 WBC (Bld) [Ratio] 0 % 0-5 [facility] MCHC Auto (RBC) [Mass/Vol]Or dered By: Lynn Zurita on 11-02-2023 MCHC (RBC) [Mass/Vol] 32.8 g/dL 32-36 [facility] Platelets bldOrdered By: Nano Zurita on 11-02-2023 Platelets (Bld) [#/Vol] 188 10*3/uL 150-450 [facility] Absolute lymphocyte countOrd ered By: Lynn Zurita on 10-05-2023 Lymphocytes Auto (Unsp spec) [#/Vol] 1.38 10*3/uL 0.83-4.51 [facility] Basophil percentageOrdered B y: Lynn Zurita on 10-05-2023 Basophils/100 WBC (Bld) 0.7 % 0-1 [facility] Eosinophils/100 WBC (Bld) 3.0 % 0-5 [facility] Neutrophils (Bld) [#/Vol] 5.1 10*3/uL 2.0-7.7 [facility] Neutrophils/100 WBC (Bld) 69.1 % 47-70 [facility] WBC (Bld) [#/Vol] 7.4 10*3/uL 4.4-11.0 [facility] Blood erythrocytes count (nu mber/volume)Ordered By: Lynn Zurita on 10-05-2023 RBC (Bld) [#/Vol] 4.52 10*6/uL 4.6-6.2 [facility] Blood hemoglobin measurement (mass/volume)Ordered By: Lynn Zurita on 10-05-2023 Hemoglobin (Bld) [Mass/Vol] 14.5 g/dL 13.0-16.5 [facility] Blood lymphocytes/100 leukoc ytesOrdered By: Lynn Zurita on 10-05-2023 Lymphocytes/100 WBC (Bld) 18.7 % 19-41 [facility] Blood monocytes/100 leukocyt esOrdered By: Lynn Zurita on 10-05-2023 Monocytes/100 WBC (Bld) 7.4 % 0-10 [facility] Blood platelet mean volumeOr dered By: Lynn Zurita on 10-05-2023 Platelet mean volume (Bld) [Entitic vol] 10.8 fL 6.2-12.0 [facility] Determination of erythrocyte mean corpuscular volume (MCV)Ordered By: Lynn Zurita on 10-05-2023 MCV (RBC) [Entitic vol] 97.6 fL 80-94 [facility] Hematocrit Auto (Bld) [Volum e fraction]Ordered By: Lynn Zurita on 10-05-2023 Hematocrit (Bld) [Volume fraction] 44.1 % 40-54 [facility] Laboratory - Hematology and Cell countsOrdered By: Lynn Zurita on 10-05-2023 Erythrocyte distribution width (RBC) [Entitic vol] 49.1 fL 35.1-43.9 [facility] Erythrocyte distribution width (RBC) [Ratio] 13.7 % 11.6-14.6 [facility] Immature granulocytes/100 WBC (Bld) 1.100 % 0.0-0.9 [facility] Comment on above: IG% - Immature Granu locytes (promyelocytes, myelocytes and metamyelocytes) > 1% indicates that a LEFT SHIFT is Present. MCH (RBC) [Entitic mass] 32.1 pg 27.0-32.0 [facility] Nucleated RBC/100 WBC (Bld) [Ratio] 0 % 0-5 [facility] MCHC Auto (RBC) [Mass/Vol]Or dered By: Lynn Zurita on 10-05-2023 MCHC (RBC) [Mass/Vol] 32.9 g/dL 32-36 [facility] Platelets bldOrdered By: Nano Zurita on 10-05-2023 Platelets (Bld) [#/Vol] 159 10*3/uL 150-450 [facility] Basophil percentageOrdered B y: Lynn Zurita on 09-11-2023 Bilirubin [Mass/Vol] 0.60 mg/dL 0.20-1.00 [place] Comment on above: For patients on eltr ombopag therapy, use of Dimension [place] TBIL is not recommended. Chloride [Moles/Vol] 107 mmol/L 98-107 [place] Glucose [Mass/Vol] 128 mg/dL 74-106 [facility] Comment on above: Fasting Glucose resu lt greater than or equal to 126 mg/dL suggests DIABETES MELLITUS per A.D.A. criteria. Potassium [Moles/Vol] 4.4 mmol/L 3.5-5.1 [facility] Protein [Mass/Vol] 7.3 g/dL 6.4-8.2 [facility] Sodium [Moles/Vol] 138 mmol/L 136-145 [facility] Laboratory - Chemistry and C hemistry - challengeOrdered By: Lynn Zurita on 09-11-2023 ALP [Catalytic activity/Vol] 86 U/L 45-117 [facility] ALT [Catalytic activity/Vol] 103 U/L 16-61 [facility] CO2 [Moles/Vol] 24.0 mmol/L 21.0-32.0 [facility] Globulin (S) [Mass/Vol] 4.1 g/dL 2.2-4.2 [facility] Urea nitrogen/Creatinine [Mass ratio] 14.9 mg/mg 10-20 [facility] No Panel InformationOrdered By: Lynn Zurita on 09-11-2023 Estimated GFR (MDRD) Amer 82 mL/min >60 [facility] Comment on above: GFR Calc Estimated GFR (MDRD) Non-Af Amer 68 mL/min >60 [facility] Comment on above: Non- GFR Calc Serum or plasma albumin federico urement (mass/volume)Ordered By: Lynn Zurita on 09-11-2023 Albumin [Mass/Vol] 3.2 g/dL 3.2-5.0 [facility] Serum or plasma albumin/glob ulin mass ratioOrdered By: Lynn Zurita on 09-11-2023 Albumin/Globulin [Mass ratio] 0.8 {ratio} 0.9-2.4 [facility] Serum or plasma calcium federico urement (mass/volume)Ordered By: Lynn Zurita on 09-11-2023 Calcium [Mass/Vol] 8.8 mg/dL 8.5-10.1 [facility] Serum or plasma creatinine m easurement (mass/volume)Ordered By: Lynn Zurita on 09-11-2023 Creatinine [Mass/Vol] 1.14 mg/dL 0.70-1.30 [facility] Comment on above: The validity of the calculated GFR & GFRAA in patients over 70 years has not been determined. Clinical correlation is essential. Serum or plasma urea nitroge n measurement (mass/volume)Ordered By: Lynn Zurita on 09-11-2023 Urea nitrogen [Mass/Vol] 17 mg/dL 7-18 [facility] Thin prep Papanicolaou smear with manual screeningOrdered By: Lynn Zurita on 09-11-2023 Thin prep Papanicolaou smear with manual screening 45 U/L 15-37 [facility] Thin prep Papanicolaou smear with manual screening 7 5-15 [facility] Absolute lymphocyte countOrd ered By: Lynn Zurita on 09-07-2023 Lymphocytes Auto (Unsp spec) [#/Vol] 2.50 10*3/uL 0.83-4.51 [facility] Basophil percentageOrdered B y: Lynn Zurita on 09-07-2023 Basophil percentage Not Reportable [facility] Neutrophils (Bld) [#/Vol] 4.4 10*3/uL 2.0-7.7 [facility] WBC (Bld) [#/Vol] 7.9 10*3/uL 4.4-11.0 [facility] Blood eosinophils/100 leukoc ytesOrdered By: Lynn Zurita on 09-07-2023 Eosinophils/100 WBC (Bld) 2 % 0-5 [facility] Blood erythrocytes count (nu mber/volume)Ordered By: Lynn Zurita on 09-07-2023 RBC (Bld) [#/Vol] 4.55 10*6/uL 4.6-6.2 [facility] Blood hemoglobin measurement (mass/volume)Ordered By: Lynn Zurita on 09-07-2023 Hemoglobin (Bld) [Mass/Vol] 14.4 g/dL 13.0-16.5 [facility] Blood lymphocytes/100 leukoc ytesOrdered By: Lynn Zurita on 09-07-2023 Lymphocytes/100 WBC (Bld) 32 % 19-41 [facility] Blood monocytes/100 leukocyt esOrdered By: Lynn Zurita on 09-07-2023 Monocytes/100 WBC (Bld) 10 % 0-10 [facility] Blood platelet adequacy dete ction by light microscopyOrdered By: Lynn Zurita on 09-07-2023 Platelets LM Ql (Bld) ADEQUATE ADEQ [facility] Blood platelet mean volumeOr dered By: Lynn Zurita on 09-07-2023 Platelet mean volume (Bld) [Entitic vol] 10.3 fL 6.2-12.0 [facility] Blood segmented neutrophils/ 100 leukocytesOrdered By: Lynn Zurita on 09-07-2023 Segmented neutrophils/100 WBC (Bld) 56 % 47-70 [facility] Determination of erythrocyte mean corpuscular volume (MCV)Ordered By: Lynn Zurita on 09-07-2023 MCV (RBC) [Entitic vol] 97.8 fL 80-94 [facility] Hematocrit Auto (Bld) [Volum e fraction]Ordered By: Lynn Zurita on 09-07-2023 Hematocrit (Bld) [Volume fraction] 44.5 % 40-54 [facility] Laboratory - Hematology and Cell countsOrdered By: Lynn Zurita on 09-07-2023 Erythrocyte distribution width (RBC) [Entitic vol] 47.1 fL 35.1-43.9 [facility] Erythrocyte distribution width (RBC) [Ratio] 13.2 % 11.6-14.6 [facility] MCH (RBC) [Entitic mass] 31.6 pg 27.0-32.0 [facility] MCHC Auto (RBC) [Mass/Vol]Or dered By: Lynn Zurita on 09-07-2023 MCHC (RBC) [Mass/Vol] 32.4 g/dL 32-36 [facility] Platelets bldOrdered By: Nano Zurita on 09-07-2023 Platelets (Bld) [#/Vol] 195 10*3/uL 150-450 [facility] RBC morphologyOrdered By: Radames Zurita on 09-07-2023 RBC morphology finding Nom (Bld) NORM C+C NORMAL NORM C&C [facility] Review by pathologistOrdered By: Lynn Zurita on 09-07-2023 Pathologist review Rob (Unsp spec) [Interp] Reviewed [facility] Comment on above: Previous reported re sult: Augusta perez Edited by: ALEXYTZER on 09/11/23:822Neutrophilic left shift.MacrocytosisClinical correlation necessary.Cain Beaver M.D. 09/08/23 AMENDED REPORT 09/11/23822 PATH REV previously reported as: Augusta perez Total cell countOrdered By: Lynn Zurita on 09-07-2023 Cells counted Molgen (Bld/Tiss) [#] 100 MANUAL DIFF [facility] Basophil percentageOrdered B y: Lynn Zurita on 08-21-2023 Chloride [Moles/Vol] 108 mmol/L 98-107 [place] Glucose [Mass/Vol] 132 mg/dL 74-106 [facility] Comment on above: Fasting Glucose resu lt greater than or equal to 126 mg/dL suggests DIABETES MELLITUS per A.D.A. criteria. Potassium [Moles/Vol] 4.1 mmol/L 3.5-5.1 [facility] Sodium [Moles/Vol] 142 mmol/L 136-145 [facility] Laboratory - Chemistry and C hemistry - challengeOrdered By: Lynn Zurita on 08-21-2023 CO2 [Moles/Vol] 27.0 mmol/L 21.0-32.0 [facility] Urea nitrogen/Creatinine [Mass ratio] 15.5 mg/mg 10- [facility] No Panel InformationOrdered By: Lynn Zurita on 08-21-2023 Estimated GFR (MDRD) Amer 86 mL/min >60 [facility] Comment on above: GFR Calc Estimated GFR (MDRD) Non-Af Amer 71 mL/min >60 [facility] Comment on above: Non- GFR Calc Serum or plasma calcium federico urement (mass/volume)Ordered By: Lynn Zurita on 08-21-2023 Calcium [Mass/Vol] 9.0 mg/dL 8.5-10.1 [facility] Serum or plasma creatinine m easurement (mass/volume)Ordered By: Lynn Zurita on 08-21-2023 Creatinine [Mass/Vol] 1.10 mg/dL 0.70-1.30 [facility] Comment on above: The validity of the calculated GFR & GFRAA in patients over 70 years has not been determined. Clinical correlation is essential. Serum or plasma urea nitroge n measurement (mass/volume)Ordered By: Lynn Zurita on 08-21-2023 Urea nitrogen [Mass/Vol] 17 mg/dL 7-18 [facility] Thin prep Papanicolaou smear with manual screeningOrdered By: Lynn Zurita on 08-21-2023 Thin prep Papanicolaou smear with manual screening 7 -15 [facility] Absolute lymphocyte countOrd ered By: Lynn Zurita on 08-10-2023 Lymphocytes Auto (Unsp spec) [#/Vol] 2.13 10*3/uL 0.83-4.51 [facility] Basophil percentageOrdered B y: Lynn Zurita on 08-10-2023 Basophils/100 WBC (Bld) 0.7 % 0-1 [facility] Eosinophils/100 WBC (Bld) 2.8 % 0-5 [facility] Neutrophils (Bld) [#/Vol] 3.9 10*3/uL 2.0-7.7 [facility] Neutrophils/100 WBC (Bld) 56.7 % 47-70 [facility] WBC (Bld) [#/Vol] 6.9 10*3/uL 4.4-11.0 [facility] Blood erythrocytes count (nu mber/volume)Ordered By: Lynn Zurita on 08-10-2023 RBC (Bld) [#/Vol] 4.20 10*6/uL 4.6-6.2 [facility] Blood hemoglobin measurement (mass/volume)Ordered By: Lynn Zurita on 08-10-2023 Hemoglobin (Bld) [Mass/Vol] 14.2 g/dL 13.0-16.5 [facility] Blood lymphocytes/100 leukoc ytesOrdered By: Lynn Zurita on 08-10-2023 Lymphocytes/100 WBC (Bld) 31.0 % 19-41 [facility] Blood monocytes/100 leukocyt esOrdered By: Lynn Zurita on 08-10-2023 Monocytes/100 WBC (Bld) 7.9 % 0-10 [facility] Blood platelet mean volumeOr dered By: Lynn Zurita on 08-10-2023 Platelet mean volume (Bld) [Entitic vol] 10.9 fL 6.2-12.0 [facility] Determination of erythrocyte mean corpuscular volume (MCV)Ordered By: Lynn Zurita on 08-10-2023 MCV (RBC) [Entitic vol] 96.0 fL 80-94 [facility] Hematocrit Auto (Bld) [Volum e fraction]Ordered By: Lynn Zurita on 08-10-2023 Hematocrit (Bld) [Volume fraction] 40.3 % 40-54 [facility] Laboratory - Hematology and Cell countsOrdered By: Lynn Zurita on 08-10-2023 Erythrocyte distribution width (RBC) [Entitic vol] 46.2 fL 35.1-43.9 [facility] Erythrocyte distribution width (RBC) [Ratio] 13.2 % 11.6-14.6 [facility] Immature granulocytes/100 WBC (Bld) 0.900 % 0.0-0.9 [facility] Comment on above: IG% - Immature Granu locytes (promyelocytes, myelocytes and metamyelocytes) > 1% indicates that a LEFT SHIFT is Present. MCH (RBC) [Entitic mass] 33.8 pg 27.0-32.0 [facility] Nucleated RBC/100 WBC (Bld) [Ratio] 0 % 0-5 [facility] MCHC Auto (RBC) [Mass/Vol]Or dered By: Lynn Zurita on 08-10-2023 MCHC (RBC) [Mass/Vol] 35.2 g/dL 32-36 [facility] Platelets bldOrdered By: Nano Zurita on 08-10-2023 Platelets (Bld) [#/Vol] 143 10*3/uL 150-450 [facility] Absolute lymphocyte countOrd ered By: Lynn Zurita on 07-13-2023 Lymphocytes Auto (Unsp spec) [#/Vol] 1.47 10*3/uL 0.83-4.51 [facility] Basophil percentageOrdered B y: Lynn Zurita on 07-13-2023 Basophils/100 WBC (Bld) 0.5 % 0-1 [facility] Eosinophils/100 WBC (Bld) 2.3 % 0-5 [facility] Neutrophils (Bld) [#/Vol] 5.0 10*3/uL 2.0-7.7 [facility] Neutrophils/100 WBC (Bld) 68.1 % 47-70 [facility] WBC (Bld) [#/Vol] 7.4 10*3/uL 4.4-11.0 [facility] Blood erythrocytes count (nu mber/volume)Ordered By: Lynn Zurita on 07-13-2023 RBC (Bld) [#/Vol] 4.34 10*6/uL 4.6-6.2 [facility] Blood hemoglobin measurement (mass/volume)Ordered By: Lynn Zurita on 07-13-2023 Hemoglobin (Bld) [Mass/Vol] 14.2 g/dL 13.0-16.5 [facility] Blood lymphocytes/100 leukoc ytesOrdered By: Lynnluke Zurita on 07-13-2023 Lymphocytes/100 WBC (Bld) 19.9 % 19-41 [facility] Blood monocytes/100 leukocyt esOrdered By: Lynnluke Zurita on 07-13-2023 Monocytes/100 WBC (Bld) 8.0 % 0-10 [facility] Blood platelet mean volumeOr dered By: Lynnluke Zurita on 07-13-2023 Platelet mean volume (Bld) [Entitic vol] 10.8 fL 6.2-12.0 [facility] Determination of erythrocyte mean corpuscular volume (MCV)Ordered By: Lynnluke Zurita on 07-13-2023 MCV (RBC) [Entitic vol] 93.8 fL 80-94 [facility] Hematocrit Auto (Bld) [Volum e fraction]Ordered By: Lynn Zurita on 07-13-2023 Hematocrit (Bld) [Volume fraction] 40.7 % 40-54 [facility] Laboratory - Hematology and Cell countsOrdered By: Lynnluke Zurita on 07-13-2023 Erythrocyte distribution width (RBC) [Entitic vol] 45.5 fL 35.1-43.9 [facility] Erythrocyte distribution width (RBC) [Ratio] 13.4 % 11.6-14.6 [facility] Immature granulocytes/100 WBC (Bld) 1.200 % 0.0-0.9 [facility] Comment on above: IG% - Immature Granu locytes (promyelocytes, myelocytes and metamyelocytes) > 1% indicates that a LEFT SHIFT is Present. MCH (RBC) [Entitic mass] 32.7 pg 27.0-32.0 [facility] Nucleated RBC/100 WBC (Bld) [Ratio] 0 % 0-5 [facility] MCHC Auto (RBC) [Mass/Vol]Or dered By: Lynn Zurita on 07-13-2023 MCHC (RBC) [Mass/Vol] 34.9 g/dL 32-36 [facility] Platelets bldOrdered By: Nano Zurita on 07-13-2023 Platelets (Bld) [#/Vol] 157 10*3/uL 150-450 [facility] No Panel InformationOrdered By: Lynn Zurita on 06-27-2023 Thyroid Stimulating Hormone (TSH) 3.70 uIU/mL 0.358-3.74 [facility] Whole blood hemoglobin A1c/t otal hemoglobin ratio (mass fraction)Ordered By: Lynn Zurita on 06-27-2023 HbA1c (Bld) [Mass fraction] 6.5 % 3.8-5.6 [facility] Comment on above: Normal < 5.7 % Predi abetic 5.7 - 6.4 % Diabetic >or= 6.5 % Please note range changes. No Panel InformationOrdered By: Lynn Zurita on 06-26-2023 Thyroid Stimulating Hormone (TSH) 3.87 uIU/mL 0.358-3.74 [facility] Whole blood hemoglobin A1c/t otal hemoglobin ratio (mass fraction)Ordered By: Lnyn Zurita on 06-26-2023 HbA1c (Bld) [Mass fraction] 6.6 % 3.8-5.6 [facility] Comment on above: Normal < 5.7 % Predi abetic 5.7 - 6.4 % Diabetic >or= 6.5 % Please note range changes. Absolute lymphocyte countOrd ered By: Lynn Zurita on 06-19-2023 Lymphocytes Auto (Unsp spec) [#/Vol] 1.02 10*3/uL 0.83-4.51 [facility] Basophil percentageOrdered B y: Lynn Zurita on 06-19-2023 Basophil percentage 0 SEEN /hpf 0-5 [place] Basophils/100 WBC (Bld) 0.3 % 0-1 [facility] Bilirubin [Mass/Vol] 0.50 mg/dL 0.20-1.00 [place] Comment on above: For patients on eltr ombopag therapy, use of Dimension [place] TBIL is not recommended. Chloride [Moles/Vol] 107 mmol/L 98-107 [place] Eosinophils/100 WBC (Bld) 1.8 % 0-5 [facility] Glucose [Mass/Vol] 246 mg/dL 74-106 [facility] Comment on above: Glucose result great er than or equal to 200 mg/dLsuggests DIABETES MELLITUS per A.D.A. criteria. Neutrophils (Bld) [#/Vol] 4.5 10*3/uL 2.0-7.7 [facility] Neutrophils/100 WBC (Bld) 75.2 % 47-70 [facility] Potassium [Moles/Vol] 4.0 mmol/L 3.5-5.1 [facility] Protein [Mass/Vol] 6.5 g/dL 6.4-8.2 [facility] Sodium [Moles/Vol] 138 mmol/L 136-145 [facility] WBC (Bld) [#/Vol] 6.0 10*3/uL 4.4-11.0 [facility] Bilirubin Test strip Ql (U)O rdered By: Lynn Zurita on 06-19-2023 Bilirubin Ql (U) Negative Negative [facility] Blood erythrocytes count (nu mber/volume)Ordered By: Lynn Zurita on 06-19-2023 RBC (Bld) [#/Vol] 4.34 10*6/uL 4.6-6.2 [facility] Blood hemoglobin measurement (mass/volume)Ordered By: Lynn Zurita on 06-19-2023 Hemoglobin (Bld) [Mass/Vol] 13.8 g/dL 13.0-16.5 [facility] Blood lymphocytes/100 leukoc ytesOrdered By: Lynn Zurita on 06-19-2023 Lymphocytes/100 WBC (Bld) 17.0 % 19-41 [facility] Blood monocytes/100 leukocyt esOrdered By: Lynn Zurita on 06-19-2023 Monocytes/100 WBC (Bld) 5.2 % 0-10 [facility] Blood platelet mean volumeOr dered By: Lynn Zurita on 06-19-2023 Platelet mean volume (Bld) [Entitic vol] 11.1 fL 6.2-12.0 [facility] Culture, urineOrdered By: Radames Zurita on 06-19-2023 Bacteria identified Cx Nom (U) Culture exhibits no growth. [facility] Determination of erythrocyte mean corpuscular volume (MCV)Ordered By: Lynn Zurita on 06-19-2023 MCV (RBC) [Entitic vol] 95.4 fL 80-94 [facility] Hematocrit Auto (Bld) [Volum e fraction]Ordered By: Lynn Zurita on 06-19-2023 Hematocrit (Bld) [Volume fraction] 41.4 % 40-54 [facility] Ketones Test strip Ql (U)Ord ered By: Lynn Zurita on 06-19-2023 Ketones Ql (U) Negative Negative [facility] Laboratory - Chemistry and C hemistry - challengeOrdered By: Lynn Zurita on 06-19-2023 ALP [Catalytic activity/Vol] 81 U/L 45-117 [facility] ALT [Catalytic activity/Vol] 74 U/L 16-61 [facility] CO2 [Moles/Vol] 22.0 mmol/L 21.0-32.0 [facility] Globulin (S) [Mass/Vol] 3.2 g/dL 2.2-4.2 [facility] Urea nitrogen/Creatinine [Mass ratio] 20.3 mg/mg 10-20 [facility] Laboratory - Hematology and Cell countsOrdered By: Lynn Zurita on 06-19-2023 Erythrocyte distribution width (RBC) [Entitic vol] 46.4 fL 35.1-43.9 [facility] Erythrocyte distribution width (RBC) [Ratio] 13.2 % 11.6-14.6 [facility] Immature granulocytes/100 WBC (Bld) 0.500 % 0.0-0.9 [facility] Comment on above: IG% - Immature Granu locytes (promyelocytes, myelocytes and metamyelocytes) > 1% indicates that a LEFT SHIFT is Present. MCH (RBC) [Entitic mass] 31.8 pg 27.0-32.0 [facility] Nucleated RBC/100 WBC (Bld) [Ratio] 0 % 0-5 [facility] MCHC Auto (RBC) [Mass/Vol]Or dered By: Lynn Zurita on 06-19-2023 MCHC (RBC) [Mass/Vol] 33.3 g/dL 32-36 [facility] Mucus LM Ql (Urine sed)Order ed By: Lynn Zurita on 06-19-2023 Mucus Ql (Urine sed) 0 SEEN /hpf [facility] Nitrite Test strip Ql (U)Ord ered By: Lynn Zurita on 06-19-2023 Nitrite Ql (U) Negative Negative [facility] No Panel InformationOrdered By: Lynn Zurita on 06-19-2023 Estimated GFR (MDRD) Amer 56 mL/min >60 [facility] Comment on above: GFR Calc Estimated GFR (MDRD) Non-Af Amer 47 mL/min >60 [facility] Comment on above: Non- GFR Calc Platelets bldOrdered By: Nano Zurita on 06-19-2023 Platelets (Bld) [#/Vol] 168 10*3/uL 150-450 [facility] Protein Test strip Ql (U)Ord ered By: Lynn Zurita on 06-19-2023 Protein Ql (U) 15 mg/dl Negative [facility] Serum or plasma albumin federico urement (mass/volume)Ordered By: Lynn Zurita on 06-19-2023 Albumin [Mass/Vol] 3.3 g/dL 3.2-5.0 [facility] Serum or plasma albumin/glob ulin mass ratioOrdered By: Lynn Zurita on 06-19-2023 Albumin/Globulin [Mass ratio] 1.0 {ratio} 0.9-2.4 [facility] Serum or plasma calcium federico urement (mass/volume)Ordered By: Lynn Zurita on 06-19-2023 Calcium [Mass/Vol] 8.7 mg/dL 8.5-10.1 [facility] Serum or plasma creatinine m easurement (mass/volume)Ordered By: Lynn Zurita on 06-19-2023 Creatinine [Mass/Vol] 1.58 mg/dL 0.70-1.30 [facility] Comment on above: The validity of the calculated GFR & GFRAA in patients over 70 years has not been determined. Clinical correlation is essential. Serum or plasma urea nitroge n measurement (mass/volume)Ordered By: Lynn Zurita on 06-19-2023 Urea nitrogen [Mass/Vol] 32 mg/dL 7-18 [facility] Squamous epithelial cells de tection in urine sediment by light microscopyOrdered By: Lynn Zurita on 06-19-2023 Epithelial cells.squamous LM Ql (Urine sed) 0 SEEN /hpf 0-5 [facility] Thin prep Papanicolaou smear with manual screeningOrdered By: Lynn Zurita on 06-19-2023 Thin prep Papanicolaou smear with manual screening 38 U/L 15-37 [facility] Thin prep Papanicolaou smear with manual screening 9 5-15 [facility] Urine blood detectionOrdered By: Lynn Zurita on 06-19-2023 RBC Ql (U) Negative Negative [facility] RBC Ql (U) 0 SEEN /hpf 0-5 [facility] Urine clarityOrdered By: Nano Zurita on 06-19-2023 Clarity (U) Clear Clear [facility] Urine color determinationOrd ered By: Lynn Zurita on 06-19-2023 Color (U) Yellow Yellow [facility] Urine glucose detectionOrder ed By: Lynn Zurita on 06-19-2023 Glucose Ql (U) Normal mg/dl Normal [facility] Urine leukocyte esterase det ection by dipstickOrdered By: Lynn Zurita on 06-19-2023 Leukocyte esterase Test strip Ql (U) Negative Negative [facility] Urine pHOrdered By: Lynn godinez on 06-19-2023 pH (U) 5.0 [pH] 5.0 - 8.0 [facility] Urine sediment bacteria coun t by microscopy (number/high power field)Ordered By: Lynn Zurita on 06-19-2023 Bacteria LM.HPF (Urine sed) [#/Area] 0 /[HPF] None Seen [facility] Urine specific gravity measu rementOrdered By: Lynn Zurita on 06-19-2023 Specific gravity (U) [Rel density] 1.020 1.002-1.030 [facility] Urobilinogen Auto test strip Ql (U)Ordered By: Lynn Zurita on 06-19-2023 Urobilinogen Ql (U) Normal mg/dl Normal [facility] Absolute lymphocyte countOrd ered By: Lynn Zurita on 06-15-2023 Lymphocytes Auto (Unsp spec) [#/Vol] 1.77 10*3/uL 0.83-4.51 [facility] Basophil percentageOrdered B y: Lynn Zurita on 06-15-2023 Basophils/100 WBC (Bld) 0.5 % 0-1 [facility] Eosinophils/100 WBC (Bld) 1.5 % 0-5 [facility] Neutrophils (Bld) [#/Vol] 5.3 10*3/uL 2.0-7.7 [facility] Neutrophils/100 WBC (Bld) 66.8 % 47-70 [facility] WBC (Bld) [#/Vol] 8.0 10*3/uL 4.4-11.0 [facility] Blood erythrocytes count (nu mber/volume)Ordered By: Lynn Zuriat on 06-15-2023 RBC (Bld) [#/Vol] 5.00 10*6/uL 4.6-6.2 [facility] Blood hemoglobin measurement (mass/volume)Ordered By: Lynn Zurita on 06-15-2023 Hemoglobin (Bld) [Mass/Vol] 15.7 g/dL 13.0-16.5 [facility] Blood lymphocytes/100 leukoc ytesOrdered By: Lynn Zurita on 06-15-2023 Lymphocytes/100 WBC (Bld) 22.2 % 19-41 [facility] Blood monocytes/100 leukocyt esOrdered By: Lynn Zurita on 06-15-2023 Monocytes/100 WBC (Bld) 8.0 % 0-10 [facility] Blood platelet mean volumeOr dered By: Lynn Zurita on 06-15-2023 Platelet mean volume (Bld) [Entitic vol] 10.9 fL 6.2-12.0 [facility] Determination of erythrocyte mean corpuscular volume (MCV)Ordered By: Lynn Zurita on 06-15-2023 MCV (RBC) [Entitic vol] 94.4 fL 80-94 [facility] Hematocrit Auto (Bld) [Volum e fraction]Ordered By: Lynn Zurita on 06-15-2023 Hematocrit (Bld) [Volume fraction] 47.2 % 40-54 [facility] Laboratory - Hematology and Cell countsOrdered By: Lynn Zurita on 06-15-2023 Erythrocyte distribution width (RBC) [Entitic vol] 44.4 fL 35.1-43.9 [facility] Erythrocyte distribution width (RBC) [Ratio] 13.0 % 11.6-14.6 [facility] Immature granulocytes/100 WBC (Bld) 1.000 % 0.0-0.9 [facility] Comment on above: IG% - Immature Granu locytes (promyelocytes, myelocytes and metamyelocytes) > 1% indicates that a LEFT SHIFT is Present. MCH (RBC) [Entitic mass] 31.4 pg 27.0-32.0 [facility] Nucleated RBC/100 WBC (Bld) [Ratio] 0 % 0-5 [facility] MCHC Auto (RBC) [Mass/Vol]Or dered By: Lynn Zurita on 06-15-2023 MCHC (RBC) [Mass/Vol] 33.3 g/dL 32-36 [facility] Platelets bldOrdered By: Nano Zurita on 06-15-2023 Platelets (Bld) [#/Vol] 184 10*3/uL 150-450 [facility] Absolute lymphocyte countOrd ered By: Lynn Zurita on 05-18-2023 Lymphocytes Auto (Unsp spec) [#/Vol] 1.90 10*3/uL 0.83-4.51 [facility] Basophil percentageOrdered B y: Lynn Zurita on 05-18-2023 Basophils/100 WBC (Bld) 0.7 % 0-1 [facility] Eosinophils/100 WBC (Bld) 2.5 % 0-5 [facility] Neutrophils (Bld) [#/Vol] 4.4 10*3/uL 2.0-7.7 [facility] Neutrophils/100 WBC (Bld) 60.4 % 47-70 [facility] WBC (Bld) [#/Vol] 7.2 10*3/uL 4.4-11.0 [facility] Blood erythrocytes count (nu mber/volume)Ordered By: Lynn Zurita on 05-18-2023 RBC (Bld) [#/Vol] 4.66 10*6/uL 4.6-6.2 [facility] Blood hemoglobin measurement (mass/volume)Ordered By: Lynn Zurita on 05-18-2023 Hemoglobin (Bld) [Mass/Vol] 14.8 g/dL 13.0-16.5 [facility] Blood lymphocytes/100 leukoc ytesOrdered By: Lynn Zurita on 05-18-2023 Lymphocytes/100 WBC (Bld) 26.3 % 19-41 [facility] Blood monocytes/100 leukocyt esOrdered By: Lynn Zurita on 05-18-2023 Monocytes/100 WBC (Bld) 8.9 % 0-10 [facility] Blood platelet mean volumeOr dered By: Lynn Zurita on 05-18-2023 Platelet mean volume (Bld) [Entitic vol] 10.8 fL 6.2-12.0 [facility] Determination of erythrocyte mean corpuscular volume (MCV)Ordered By: Lynn Zurita on 05-18-2023 MCV (RBC) [Entitic vol] 95.7 fL 80-94 [facility] Hematocrit Auto (Bld) [Volum e fraction]Ordered By: Lynn Zurita on 05-18-2023 Hematocrit (Bld) [Volume fraction] 44.6 % 40-54 [facility] Laboratory - Hematology and Cell countsOrdered By: Lynn Zurita on 05-18-2023 Erythrocyte distribution width (RBC) [Entitic vol] 46.1 fL 35.1-43.9 [facility] Erythrocyte distribution width (RBC) [Ratio] 13.2 % 11.6-14.6 [facility] Immature granulocytes/100 WBC (Bld) 1.200 % 0.0-0.9 [facility] Comment on above: IG% - Immature Granu locytes (promyelocytes, myelocytes and metamyelocytes) > 1% indicates that a LEFT SHIFT is Present. MCH (RBC) [Entitic mass] 31.8 pg 27.0-32.0 [facility] Nucleated RBC/100 WBC (Bld) [Ratio] 0 % 0-5 [facility] MCHC Auto (RBC) [Mass/Vol]Or dered By: Lynn Zurita on 05-18-2023 MCHC (RBC) [Mass/Vol] 33.2 g/dL 32-36 [facility] Platelets bldOrdered By: Nano Zurita on 05-18-2023 Platelets (Bld) [#/Vol] 165 10*3/uL 150-450 [facility] Absolute lymphocyte countOrd ered By: Lynn Zurita on 04-20-2023 Lymphocytes Auto (Unsp spec) [#/Vol] 1.75 10*3/uL 0.83-4.51 [facility] Basophil percentageOrdered B y: Lynn Zurita on 04-20-2023 Basophils/100 WBC (Bld) 0.4 % 0-1 [facility] Eosinophils/100 WBC (Bld) 3.4 % 0-5 [facility] Neutrophils (Bld) [#/Vol] 4.1 10*3/uL 2.0-7.7 [facility] Neutrophils/100 WBC (Bld) 60.7 % 47-70 [facility] WBC (Bld) [#/Vol] 6.8 10*3/uL 4.4-11.0 [facility] Blood erythrocytes count (nu mber/volume)Ordered By: Lynn Zurita on 04-20-2023 RBC (Bld) [#/Vol] 4.58 10*6/uL 4.6-6.2 [facility] Blood hemoglobin measurement (mass/volume)Ordered By: Lynn Zurita on 04-20-2023 Hemoglobin (Bld) [Mass/Vol] 14.9 g/dL 13.0-16.5 [facility] Blood lymphocytes/100 leukoc ytesOrdered By: Lynn Zurita on 04-20-2023 Lymphocytes/100 WBC (Bld) 25.9 % 19-41 [facility] Blood monocytes/100 leukocyt esOrdered By: Lynn Zurita on 04-20-2023 Monocytes/100 WBC (Bld) 8.7 % 0-10 [facility] Blood platelet mean volumeOr dered By: Lynn Zurita on 04-20-2023 Platelet mean volume (Bld) [Entitic vol] 10.8 fL 6.2-12.0 [facility] Determination of erythrocyte mean corpuscular volume (MCV)Ordered By: Lynn Zuirta on 04-20-2023 MCV (RBC) [Entitic vol] 94.8 fL 80-94 [facility] Hematocrit Auto (Bld) [Volum e fraction]Ordered By: Lynn Zurita on 04-20-2023 Hematocrit (Bld) [Volume fraction] 43.4 % 40-54 [facility] Laboratory - Hematology and Cell countsOrdered By: Lynn Zurita on 04-20-2023 Erythrocyte distribution width (RBC) [Entitic vol] 45.0 fL 35.1-43.9 [facility] Erythrocyte distribution width (RBC) [Ratio] 13.0 % 11.6-14.6 [facility] Immature granulocytes/100 WBC (Bld) 0.900 % 0.0-0.9 [facility] Comment on above: IG% - Immature Granu locytes (promyelocytes, myelocytes and metamyelocytes) > 1% indicates that a LEFT SHIFT is Present. MCH (RBC) [Entitic mass] 32.5 pg 27.0-32.0 [facility] Nucleated RBC/100 WBC (Bld) [Ratio] 0 % 0-5 [facility] MCHC Auto (RBC) [Mass/Vol]Or dered By: Lynn Zurita on 04-20-2023 MCHC (RBC) [Mass/Vol] 34.3 g/dL 32-36 [facility] Platelets bldOrdered By: Nano Zurita on 04-20-2023 Platelets (Bld) [#/Vol] 174 10*3/uL 150-450 [facility] Absolute lymphocyte countOrd ered By: Dr. Zurita on 03-23-2023 Lymphocytes Auto (Unsp spec) [#/Vol] 1.85 10*3/uL 0.83-4.51 [facility] Basophil percentageOrdered B y: Dr. Zurita on 03-23-2023 Basophils/100 WBC (Bld) 0.7 % 0-1 [facility] Eosinophils/100 WBC (Bld) 2.6 % 0-5 [facility] Neutrophils (Bld) [#/Vol] 4.2 10*3/uL 2.0-7.7 [facility] Neutrophils/100 WBC (Bld) 60.1 % 47-70 [facility] WBC (Bld) [#/Vol] 7.0 10*3/uL 4.4-11.0 [facility] Blood erythrocytes count (nu mber/volume)Ordered By: Dr. Zurita on 03-23-2023 RBC (Bld) [#/Vol] 4.42 10*6/uL 4.6-6.2 [facility] Blood hemoglobin measurement (mass/volume)Ordered By: Dr. Zurita on 03-23-2023 Hemoglobin (Bld) [Mass/Vol] 14.2 g/dL 13.0-16.5 [facility] Blood lymphocytes/100 leukoc ytesOrdered By: Dr. Zurita on 03-23-2023 Lymphocytes/100 WBC (Bld) 26.4 % 19-41 [facility] Blood monocytes/100 leukocyt esOrdered By: Dr. Zurita on 03-23-2023 Monocytes/100 WBC (Bld) 9.1 % 0-10 [facility] Blood platelet mean volumeOr dered By: Dr. Zurita on 03-23-2023 Platelet mean volume (Bld) [Entitic vol] 10.7 fL 6.2-12.0 [facility] Determination of erythrocyte mean corpuscular volume (MCV)Ordered By: Dr. Zurita on 03-23-2023 MCV (RBC) [Entitic vol] 95.2 fL 80-94 [facility] Hematocrit Auto (Bld) [Volum e fraction]Ordered By: Dr. Zurita on 03-23-2023 Hematocrit (Bld) [Volume fraction] 42.1 % 40-54 [facility] Laboratory - Hematology and Cell countsOrdered By: Dr. Zurita on 03-23-2023 Erythrocyte distribution width (RBC) [Entitic vol] 44.1 fL 35.1-43.9 [facility] Erythrocyte distribution width (RBC) [Ratio] 12.8 % 11.6-14.6 [facility] Immature granulocytes/100 WBC (Bld) 1.100 % 0.0-0.9 [facility] Comment on above: IG% - Immature Granu locytes (promyelocytes, myelocytes and metamyelocytes) > 1% indicates that a LEFT SHIFT is Present. MCH (RBC) [Entitic mass] 32.1 pg 27.0-32.0 [facility] Nucleated RBC/100 WBC (Bld) [Ratio] 0 % 0-5 [facility] MCHC Auto (RBC) [Mass/Vol]Or dered By: Dr. Zurita on 03-23-2023 MCHC (RBC) [Mass/Vol] 33.7 g/dL 32-36 [facility] Platelets bldOrdered By: Dr. Zurita on 03-23-2023 Platelets (Bld) [#/Vol] 180 10*3/uL 150-450 [facility] Absolute lymphocyte countOrd ered By: Dr. Zurita on 02-23-2023 Lymphocytes Auto (Unsp spec) [#/Vol] 1.86 10*3/uL 0.83-4.51 [facility] Basophil percentageOrdered B y: Dr. Zurita on 02-23-2023 Basophils/100 WBC (Bld) 0.7 % 0-1 [facility] Eosinophils/100 WBC (Bld) 3.2 % 0-5 [facility] Neutrophils (Bld) [#/Vol] 4.5 10*3/uL 2.0-7.7 [facility] Neutrophils/100 WBC (Bld) 61.7 % 47-70 [facility] WBC (Bld) [#/Vol] 7.3 10*3/uL 4.4-11.0 [facility] Blood erythrocytes count (nu mber/volume)Ordered By: Dr. Zurita on 02-23-2023 RBC (Bld) [#/Vol] 4.62 10*6/uL 4.6-6.2 [facility] Blood hemoglobin measurement (mass/volume)Ordered By: Dr. Zurita on 02-23-2023 Hemoglobin (Bld) [Mass/Vol] 14.6 g/dL 13.0-16.5 [facility] Blood lymphocytes/100 leukoc ytesOrdered By: Dr. Zurita on 02-23-2023 Lymphocytes/100 WBC (Bld) 25.6 % 19-41 [facility] Blood monocytes/100 leukocyt esOrdered By: Dr. Zurita on 02-23-2023 Monocytes/100 WBC (Bld) 7.7 % 0-10 [facility] Blood platelet mean volumeOr dered By: Dr. Zurita on 02-23-2023 Platelet mean volume (Bld) [Entitic vol] 10.6 fL 6.2-12.0 [facility] Determination of erythrocyte mean corpuscular volume (MCV)Ordered By: Dr. Zurita on 02-23-2023 MCV (RBC) [Entitic vol] 97.8 fL 80-94 [facility] Hematocrit Auto (Bld) [Volum e fraction]Ordered By: Dr. Zurita on 02-23-2023 Hematocrit (Bld) [Volume fraction] 45.2 % 40-54 [facility] Laboratory - Hematology and Cell countsOrdered By: Dr. Zurita on 02-23-2023 Erythrocyte distribution width (RBC) [Entitic vol] 45.8 fL 35.1-43.9 [facility] Erythrocyte distribution width (RBC) [Ratio] 12.9 % 11.6-14.6 [facility] Immature granulocytes/100 WBC (Bld) 1.100 % 0.0-0.9 [facility] Comment on above: IG% - Immature Granu locytes (promyelocytes, myelocytes and metamyelocytes) > 1% indicates that a LEFT SHIFT is Present. MCH (RBC) [Entitic mass] 31.6 pg 27.0-32.0 [facility] Nucleated RBC/100 WBC (Bld) [Ratio] 0 % 0-5 [facility] MCHC Auto (RBC) [Mass/Vol]Or dered By: Dr. Zurita on 02-23-2023 MCHC (RBC) [Mass/Vol] 32.3 g/dL 32-36 [facility] Platelets bldOrdered By: Dr. Zurita on 02-23-2023 Platelets (Bld) [#/Vol] 186 10*3/uL 150-450 [facility] Whole blood hemoglobin A1c/t otal hemoglobin ratio (mass fraction)Ordered By: Dr. Zurita on 02-23-2023 HbA1c (Bld) [Mass fraction] 6.1 % 3.8-5.6 [facility] Comment on above: Normal < 5.7 % Predi abetic 5.7 - 6.4 % Diabetic >or= 6.5 % Please note range changes. Absolute lymphocyte countOrd ered By: Dr. Zurita on 01-26-2023 Lymphocytes Auto (Unsp spec) [#/Vol] 1.27 10*3/uL 0.83-4.51 [facility] Basophil percentageOrdered B y: Dr. Zurita on 01-26-2023 Basophils/100 WBC (Bld) 0.4 % 0-1 [facility] Eosinophils/100 WBC (Bld) 2.1 % 0-5 [facility] Neutrophils (Bld) [#/Vol] 5.0 10*3/uL 2.0-7.7 [facility] Neutrophils/100 WBC (Bld) 70.6 % 47-70 [facility] WBC (Bld) [#/Vol] 7.0 10*3/uL 4.4-11.0 [facility] Blood erythrocytes count (nu mber/volume)Ordered By: Dr. Zurita on 01-26-2023 RBC (Bld) [#/Vol] 4.30 10*6/uL 4.6-6.2 [facility] Blood hemoglobin measurement (mass/volume)Ordered By: Dr. Zurita on 01-26-2023 Hemoglobin (Bld) [Mass/Vol] 13.7 g/dL 13.0-16.5 [facility] Blood lymphocytes/100 leukoc ytesOrdered By: Dr. Zurita on 01-26-2023 Lymphocytes/100 WBC (Bld) 18.1 % 19-41 [facility] Blood monocytes/100 leukocyt esOrdered By: Dr. Zurita on 01-26-2023 Monocytes/100 WBC (Bld) 7.8 % 0-10 [facility] Blood platelet mean volumeOr dered By: Dr. Zurita on 01-26-2023 Platelet mean volume (Bld) [Entitic vol] 10.5 fL 6.2-12.0 [facility] Determination of erythrocyte mean corpuscular volume (MCV)Ordered By: Dr. Zurita on 01-26-2023 MCV (RBC) [Entitic vol] 95.3 fL 80-94 [facility] Hematocrit Auto (Bld) [Volum e fraction]Ordered By: Dr. Zurita on 01-26-2023 Hematocrit (Bld) [Volume fraction] 41.0 % 40-54 [facility] Laboratory - Hematology and Cell countsOrdered By: Dr. Zurita on 01-26-2023 Erythrocyte distribution width (RBC) [Entitic vol] 47.1 fL 35.1-43.9 [facility] Erythrocyte distribution width (RBC) [Ratio] 13.6 % 11.6-14.6 [facility] Immature granulocytes/100 WBC (Bld) 1.000 % 0.0-0.9 [facility] Comment on above: IG% - Immature Granu locytes (promyelocytes, myelocytes and metamyelocytes) > 1% indicates that a LEFT SHIFT is Present. MCH (RBC) [Entitic mass] 31.9 pg 27.0-32.0 [facility] Nucleated RBC/100 WBC (Bld) [Ratio] 0 % 0-5 [facility] MCHC Auto (RBC) [Mass/Vol]Or dered By: Dr. Zurita on 01-26-2023 MCHC (RBC) [Mass/Vol] 33.4 g/dL 32-36 [facility] Platelets bldOrdered By: Dr. Zurita on 01-26-2023 Platelets (Bld) [#/Vol] 173 10*3/uL 150-450 [facility] Absolute lymphocyte countOrd ered By: Dr. Zurita on 12-29-2022 Lymphocytes Auto (Unsp spec) [#/Vol] 2.30 10*3/uL 0.83-4.51 [facility] Basophil percentageOrdered B y: Dr. Zurita on 12-29-2022 Basophils/100 WBC (Bld) 0.8 % 0-1 [facility] Eosinophils/100 WBC (Bld) 2.3 % 0-5 [facility] Neutrophils (Bld) [#/Vol] 4.6 10*3/uL 2.0-7.7 [facility] Neutrophils/100 WBC (Bld) 59.0 % 47-70 [facility] WBC (Bld) [#/Vol] 7.9 10*3/uL 4.4-11.0 [facility] Blood erythrocytes count (nu mber/volume)Ordered By: Dr. Zurita on 12-29-2022 RBC (Bld) [#/Vol] 4.55 10*6/uL 4.6-6.2 [facility] Blood hemoglobin measurement (mass/volume)Ordered By: Dr. Zurita on 12-29-2022 Hemoglobin (Bld) [Mass/Vol] 14.4 g/dL 13.0-16.5 [facility] Blood lymphocytes/100 leukoc ytesOrdered By: Dr. Zurita on 12-29-2022 Lymphocytes/100 WBC (Bld) 29.3 % 19-41 [facility] Blood monocytes/100 leukocyt esOrdered By: Dr. Zurita on 12-29-2022 Monocytes/100 WBC (Bld) 7.6 % 0-10 [facility] Blood platelet mean volumeOr dered By: Dr. Zurita on 12-29-2022 Platelet mean volume (Bld) [Entitic vol] 10.7 fL 6.2-12.0 [facility] Determination of erythrocyte mean corpuscular volume (MCV)Ordered By: Dr. Zurita on 12-29-2022 MCV (RBC) [Entitic vol] 97.8 fL 80-94 [facility] Hematocrit Auto (Bld) [Volum e fraction]Ordered By: Dr. Zurita on 12-29-2022 Hematocrit (Bld) [Volume fraction] 44.5 % 40-54 [facility] Laboratory - Hematology and Cell countsOrdered By: Dr. Zurita on 12-29-2022 Erythrocyte distribution width (RBC) [Entitic vol] 48.3 fL 35.1-43.9 [facility] Erythrocyte distribution width (RBC) [Ratio] 13.6 % 11.6-14.6 [facility] Immature granulocytes/100 WBC (Bld) 1.000 % 0.0-0.9 [facility] Comment on above: IG% - Immature Granu locytes (promyelocytes, myelocytes and metamyelocytes) > 1% indicates that a LEFT SHIFT is Present. MCH (RBC) [Entitic mass] 31.6 pg 27.0-32.0 [facility] Nucleated RBC/100 WBC (Bld) [Ratio] 0 % 0-5 [facility] MCHC Auto (RBC) [Mass/Vol]Or dered By: Dr. Zurita on 12-29-2022 MCHC (RBC) [Mass/Vol] 32.4 g/dL 32-36 [facility] Platelets bldOrdered By: Dr. Zurita on 12-29-2022 Platelets (Bld) [#/Vol] 205 10*3/uL 150-450 [facility] Absolute lymphocyte countOrd ered By: Dr. Zurita on 12-01-2022 Lymphocytes Auto (Unsp spec) [#/Vol] 1.59 10*3/uL 0.83-4.51 [facility] Basophil percentageOrdered B y: Dr. Zurita on 12-01-2022 Basophils/100 WBC (Bld) 0.4 % 0-1 [facility] Eosinophils/100 WBC (Bld) 1.9 % 0-5 [facility] Neutrophils (Bld) [#/Vol] 5.2 10*3/uL 2.0-7.7 [facility] Neutrophils/100 WBC (Bld) 69.0 % 47-70 [facility] WBC (Bld) [#/Vol] 7.5 10*3/uL 4.4-11.0 [facility] Blood erythrocytes count (nu mber/volume)Ordered By: Dr. Zurita on 12-01-2022 RBC (Bld) [#/Vol] 4.22 10*6/uL 4.6-6.2 [facility] Blood hemoglobin measurement (mass/volume)Ordered By: Dr. Zurita on 12-01-2022 Hemoglobin (Bld) [Mass/Vol] 13.4 g/dL 13.0-16.5 [facility] Blood lymphocytes/100 leukoc ytesOrdered By: Dr. Zurita on 12-01-2022 Lymphocytes/100 WBC (Bld) 21.2 % 19-41 [facility] Blood monocytes/100 leukocyt esOrdered By: Dr. Zurita on 12-01-2022 Monocytes/100 WBC (Bld) 6.4 % 0-10 [facility] Blood platelet adequacy dete ction by light microscopyOrdered By: Dr. Zurita on 12-01-2022 Platelets LM Ql (Bld) [facility] Blood platelet mean volumeOr dered By: Dr. Zurita on 12-01-2022 Platelet mean volume (Bld) [Entitic vol] 11.0 fL 6.2-12.0 [facility] Determination of erythrocyte mean corpuscular volume (MCV)Ordered By: Dr. Zurita on 12-01-2022 MCV (RBC) [Entitic vol] 96.4 fL 80-94 [facility] Hematocrit Auto (Bld) [Volum e fraction]Ordered By: Dr. Zurita on 12-01-2022 Hematocrit (Bld) [Volume fraction] 40.7 % 40-54 [facility] Laboratory - Hematology and Cell countsOrdered By: Dr. Zurita on 12-01-2022 Erythrocyte distribution width (RBC) [Entitic vol] 47.2 fL 35.1-43.9 [facility] Erythrocyte distribution width (RBC) [Ratio] 13.4 % 11.6-14.6 [facility] Immature granulocytes/100 WBC (Bld) 1.100 % 0.0-0.9 [facility] Comment on above: IG% - Immature Granu locytes (promyelocytes, myelocytes and metamyelocytes) > 1% indicates that a LEFT SHIFT is Present. MCH (RBC) [Entitic mass] 31.8 pg 27.0-32.0 [facility] Nucleated RBC/100 WBC (Bld) [Ratio] 0 % 0-5 [facility] MCHC Auto (RBC) [Mass/Vol]Or dered By: Dr. Zurita on 12-01-2022 MCHC (RBC) [Mass/Vol] 32.9 g/dL 32-36 [facility] Platelets bldOrdered By: Dr. Zurita on 12-01-2022 Platelets (Bld) [#/Vol] TNP [facility] Comment on above: Test not performedPl ease note: For this sample, a platelet estimate is provided rather than a platelet count due to platelet clumping. Other parameters associated with this sample are not affected by platelet clumping. If a more accurate platelet count is required, a redraw of the patient will be necessary.Previous reported result: 140 K/[id number] by: MARYANN on 12/01/22:1013 AMENDED REPORT 12/01/22 1013 PLT previously reported as: 140 L K/mm3 Basophil percentageOrdered B y: Dr. Zurita on 11-24-2022 WBC (Bld) [#/Vol] 8.2 10*3/uL 4.4-11.0 [facility] Blood erythrocytes count (nu mber/volume)Ordered By: Dr. Zurita on 11-24-2022 RBC (Bld) [#/Vol] 4.44 10*6/uL 4.6-6.2 [facility] Blood hemoglobin measurement (mass/volume)Ordered By: Dr. Zurita on 11-24-2022 Hemoglobin (Bld) [Mass/Vol] 14.0 g/dL 13.0-16.5 [facility] Blood platelet mean volumeOr dered By: Dr. Zurita on 11-24-2022 Platelet mean volume (Bld) [Entitic vol] 10.9 fL 6.2-12.0 [facility] Determination of erythrocyte mean corpuscular volume (MCV)Ordered By: Dr. Zurita on 11-24-2022 MCV (RBC) [Entitic vol] 94.8 fL 80-94 [facility] Hematocrit Auto (Bld) [Volum e fraction]Ordered By: Dr. Zurita on 11-24-2022 Hematocrit (Bld) [Volume fraction] 42.1 % 40-54 [facility] Laboratory - Hematology and Cell countsOrdered By: Dr. Zurita on 11-24-2022 Erythrocyte distribution width (RBC) [Entitic vol] 45.8 fL 35.1-43.9 [facility] Erythrocyte distribution width (RBC) [Ratio] 13.2 % 11.6-14.6 [facility] MCH (RBC) [Entitic mass] 31.5 pg 27.0-32.0 [facility] MCHC Auto (RBC) [Mass/Vol]Or dered By: Dr. Zurita on 11-24-2022 MCHC (RBC) [Mass/Vol] 33.3 g/dL 32-36 [facility] Platelets bldOrdered By: Dr. Zurita on 11-24-2022 Platelets (Bld) [#/Vol] 190 10*3/uL 150-450 [facility] Absolute lymphocyte countOrd ered By: Dr. Zurita on 11-08-2022 Lymphocytes Auto (Unsp spec) [#/Vol] 1.41 10*3/uL 0.83-4.51 [facility] Basophil percentageOrdered B y: Dr. Zurita on 11-08-2022 Basophils/100 WBC (Bld) 0.4 % 0-1 [facility] Bilirubin [Mass/Vol] 0.30 mg/dL 0.20-1.00 [place] Comment on above: For patients on eltr ombopag therapy, use of Dimension [place] TBIL is not recommended. Chloride [Moles/Vol] 107 mmol/L 98-107 [place] Cholesterol [Mass/Vol] 143 mg/dL <200 [facility] Comment on above: <200 mg/dL Desirable 200-240 mg/dL Borderline >240 mg/dL High Risk Eosinophils/100 WBC (Bld) 3.2 % 0-5 [facility] Glucose [Mass/Vol] 108 mg/dL 74-106 [facility] Comment on above: Fasting Glucose resu lt from 100 to 125 mg/dL suggests IMPAIRED HOMEOSTASIS per A.D.A. criteria. Neutrophils (Bld) [#/Vol] 5.2 10*3/uL 2.0-7.7 [facility] Neutrophils/100 WBC (Bld) 68.8 % 47-70 [facility] Potassium [Moles/Vol] 4.0 mmol/L 3.5-5.1 [facility] Protein [Mass/Vol] 6.4 g/dL 6.4-8.2 [facility] Sodium [Moles/Vol] 140 mmol/L 136-145 [facility] Triglyceride [Mass/Vol] 293 mg/dL <199 [facility] Comment on above: The drugs N-Acetylcy steine and Metamizole may falsely depress this assay.Serum Triglycerides Reference Interval Normal <150 mg/dL Borderline high 150 - 199 mg/dL High 200 - 499 mg/dL Very High > or = 500 mg/dL WBC (Bld) [#/Vol] 7.6 10*3/uL 4.4-11.0 [facility] Blood erythrocytes count (nu mber/volume)Ordered By: Dr. Zurita on 11-08-2022 RBC (Bld) [#/Vol] 4.21 10*6/uL 4.6-6.2 [facility] Blood hemoglobin measurement (mass/volume)Ordered By: Dr. Zurita on 11-08-2022 Hemoglobin (Bld) [Mass/Vol] 13.4 g/dL 13.0-16.5 [facility] Blood lymphocytes/100 leukoc ytesOrdered By: Dr. Zurita on 11-08-2022 Lymphocytes/100 WBC (Bld) 18.7 % 19-41 [facility] Blood monocytes/100 leukocyt esOrdered By: Dr. Zurita on 11-08-2022 Monocytes/100 WBC (Bld) 7.8 % 0-10 [facility] Blood platelet mean volumeOr dered By: Dr. Zurita on 11-08-2022 Platelet mean volume (Bld) [Entitic vol] 10.5 fL 6.2-12.0 [facility] Determination of erythrocyte mean corpuscular volume (MCV)Ordered By: Dr. Zurita on 11-08-2022 MCV (RBC) [Entitic vol] 96.2 fL 80-94 [facility] Hematocrit Auto (Bld) [Volum e fraction]Ordered By: Dr. Zurita on 11-08-2022 Hematocrit (Bld) [Volume fraction] 40.5 % 40-54 [facility] Laboratory - Chemistry and C hemistry - challengeOrdered By: Dr. Zurita on 11-08-2022 ALP [Catalytic activity/Vol] 73 U/L 45-117 [facility] ALT [Catalytic activity/Vol] 47 U/L 16-61 [facility] CO2 [Moles/Vol] 25.0 mmol/L 21.0-32.0 [facility] Cobalamin (Vitamin B12) [Mass/Vol] 598 pg/mL 211-911 [facility] Globulin (S) [Mass/Vol] 3.2 g/dL 2.2-4.2 [facility] Magnesium [Mass/Vol] 2.3 mg/dL 1.6-2.6 [place] Urea nitrogen/Creatinine [Mass ratio] 17.9 mg/mg 10-20 [facility] Laboratory - Hematology and Cell countsOrdered By: Dr. Zurita on 11-08-2022 Erythrocyte distribution width (RBC) [Entitic vol] 46.0 fL 35.1-43.9 [facility] Erythrocyte distribution width (RBC) [Ratio] 13.0 % 11.6-14.6 [facility] Immature granulocytes/100 WBC (Bld) 1.100 % 0.0-0.9 [facility] Comment on above: IG% - Immature Granu locytes (promyelocytes, myelocytes and metamyelocytes) > 1% indicates that a LEFT SHIFT is Present. MCH (RBC) [Entitic mass] 31.8 pg 27.0-32.0 [facility] Nucleated RBC/100 WBC (Bld) [Ratio] 0 % 0-5 [facility] MCHC Auto (RBC) [Mass/Vol]Or dered By: Dr. Zurita on 11-08-2022 MCHC (RBC) [Mass/Vol] 33.1 g/dL 32-36 [facility] No Panel InformationOrdered By: Dr. Zurita on 11-08-2022 Estimated GFR (MDRD) Amer 90 mL/min >60 [facility] Comment on above: GFR Calc Estimated GFR (MDRD) Non-Af Amer 74 mL/min >60 [facility] Comment on above: Non- GFR Calc Thyroid Stimulating Hormone (TSH) 3.45 uIU/mL 0.358-3.74 [facility] Vitamin D 25-Hydroxy 65.9 ng/mL [place] Comment on above: Vitamin D 25(OH) Sta tus Range Deficiency <20 ng/mL (50nmol/L) Insufficiency 20 - 30 ng/mL (50 - 75 nmol/L) Sufficiency 30 - 100 ng/mL (75 - 250 nmol/L) Toxicity >100 ng/mL (>250 nmol/L) Platelets bldOrdered By: Dr. Zurita on 11-08-2022 Platelets (Bld) [#/Vol] 183 10*3/uL 150-450 [facility] Serum or plasma albumin federico urement (mass/volume)Ordered By: Dr. Zurita on 11-08-2022 Albumin [Mass/Vol] 3.2 g/dL 3.2-5.0 [facility] Serum or plasma albumin/glob ulin mass ratioOrdered By: Dr. Zurita on 11-08-2022 Albumin/Globulin [Mass ratio] 1.0 {ratio} 0.9-2.4 [facility] Serum or plasma calcium federico urement (mass/volume)Ordered By: Dr. Zurita on 11-08-2022 Calcium [Mass/Vol] 8.8 mg/dL 8.5-10.1 [facility] Serum or plasma cholesterol in HDL measurement (mass/volume)Ordered By: Dr. Zurita on 11-08-2022 Cholesterol in HDL [Mass/Vol] 32 mg/dL >40 [facility] Comment on above: The drugs N-Acetylcy steine and Metamizole may falsely depress this assay. Reference Range HDL <40 mg/dL Low HDL Cholesterol HDL >or= 60 mg/dL High HDL Cholesterol Serum or plasma cholesterol in VLDL measurement (mass/volume)Ordered By: Dr. Zurita on 11-08-2022 Cholesterol in VLDL [Mass/Vol] 59 mg/dL 5-40 [facility] Serum or plasma creatinine m easurement (mass/volume)Ordered By: Dr. Zurita on 11-08-2022 Creatinine [Mass/Vol] 1.06 mg/dL 0.70-1.30 [facility] Comment on above: The validity of the calculated GFR & GFRAA in patients over 70 years has not been determined. Clinical correlation is essential. Serum or plasma low density lipoprotein (LDL) cholesterol measurement (mass/volume)Ordered By: Dr. Zurita on 11-08-2022 Cholesterol in LDL [Mass/Vol] 52 mg/dL 0-130 [facility] Serum or plasma urea nitroge n measurement (mass/volume)Ordered By: Dr. Zurita on 11-08-2022 Urea nitrogen [Mass/Vol] 19 mg/dL 7-18 [facility] Serum or plasma uric acid me asurement (mass/volume)Ordered By: Dr. Zurita on 11-08-2022 Urate [Mass/Vol] 6.4 mg/dL 3.5-7.2 [facility] Comment on above: The drugs N-Acetylcy steine and Metamizole may falsely depress this assay. Thin prep Papanicolaou smear with manual screeningOrdered By: Dr. Zurita on 11-08-2022 Thin prep Papanicolaou smear with manual screening 17 U/L 15-37 [facility] Thin prep Papanicolaou smear with manual screening 8 5-15 [facility] Whole blood hemoglobin A1c/t otal hemoglobin ratio (mass fraction)Ordered By: Dr. Zurita on 11-08-2022 HbA1c (Bld) [Mass fraction] 6.1 % 3.8-5.6 [facility] Comment on above: Normal < 5.7 % Predi abetic 5.7 - 6.4 % Diabetic >or= 6.5 % Please note range changes. Absolute lymphocyte countOrd ered By: Dr. Zurita on 10-25-2022 Lymphocytes Auto (Unsp spec) [#/Vol] 2.12 10*3/uL 0.83-4.51 [facility] Basophil percentageOrdered B y: Dr. Zurita on 10-25-2022 Basophils/100 WBC (Bld) 0.4 % 0-1 [facility] Eosinophils/100 WBC (Bld) 3.9 % 0-5 [facility] Neutrophils (Bld) [#/Vol] 7.6 10*3/uL 2.0-7.7 [facility] Neutrophils/100 WBC (Bld) 68.8 % 47-70 [facility] WBC (Bld) [#/Vol] 11.0 10*3/uL 4.4-11.0 [facility] Blood erythrocytes count (nu mber/volume)Ordered By: Dr. Zurita on 10-25-2022 RBC (Bld) [#/Vol] 5.10 10*6/uL 4.6-6.2 [facility] Blood hemoglobin measurement (mass/volume)Ordered By: Dr. Zurita on 10-25-2022 Hemoglobin (Bld) [Mass/Vol] 15.9 g/dL 13.0-16.5 [facility] Blood lymphocytes/100 leukoc ytesOrdered By: Dr. Zurita on 10-25-2022 Lymphocytes/100 WBC (Bld) 19.3 % 19-41 [facility] Blood monocytes/100 leukocyt esOrdered By: Dr. Zurita on 10-25-2022 Monocytes/100 WBC (Bld) 7.0 % 0-10 [facility] Blood platelet mean volumeOr dered By: Dr. Zurita on 10-25-2022 Platelet mean volume (Bld) [Entitic vol] 10.7 fL 6.2-12.0 [facility] Determination of erythrocyte mean corpuscular volume (MCV)Ordered By: Dr. Zurita on 10-25-2022 MCV (RBC) [Entitic vol] 96.1 fL 80-94 [facility] Hematocrit Auto (Bld) [Volum e fraction]Ordered By: Dr. Zurita on 10-25-2022 Hematocrit (Bld) [Volume fraction] 49.0 % 40-54 [facility] Laboratory - Hematology and Cell countsOrdered By: Dr. Zurita on 10-25-2022 Erythrocyte distribution width (RBC) [Entitic vol] 47.1 fL 35.1-43.9 [facility] Erythrocyte distribution width (RBC) [Ratio] 13.2 % 11.6-14.6 [facility] Immature granulocytes/100 WBC (Bld) 0.600 % 0.0-0.9 [facility] Comment on above: IG% - Immature Granu locytes (promyelocytes, myelocytes and metamyelocytes) > 1% indicates that a LEFT SHIFT is Present. MCH (RBC) [Entitic mass] 31.2 pg 27.0-32.0 [facility] Nucleated RBC/100 WBC (Bld) [Ratio] 0 % 0-5 [facility] MCHC Auto (RBC) [Mass/Vol]Or dered By: Dr. Zurita on 10-25-2022 MCHC (RBC) [Mass/Vol] 32.4 g/dL 32-36 [facility] Platelets bldOrdered By: Dr. Zurita on 10-25-2022 Platelets (Bld) [#/Vol] 202 10*3/uL 150-450 [facility] CNOVon 02-23-2021 CNOV Office Visit (AGCARDHWW) JOSE FITZGERALD ([id number]) 1955 M Date Time Provider Department 02/23/21 11:00 AM KEVIN TALLEY AGCARDHWW During your visit today, we recorded the following information about you: Pulse Respiration Blood pressure Weight 80/minute 18/minute 112/80 85.7 kg Height 1.829 m Katiuska Zhou CMA 02/23/2021 11:10 AM Signed Patient has no cardiac complaints today. Katiuska Talley MD 02/23/2021 11:21 AM Signed CORONARY ARTERY DISEASE View image View image [...] for CAD may be higher if you: - Have a family history of coronary artery disease at an early age - Smoke - Have high blood pressure - Have diabetes - Are very overweight - Don?t get enough exercise - Have high levels of blood fat--for example, high cholesterol WHAT ARE THE SYMPTOMS? Coronary artery disease may not cause any symptoms. When there are symptoms, the most common one is chest pain, called angina. You may feel: - A feeling of tightness or heaviness in the chest - Squeezing, pressure, or burning in the chest Angina symptoms usually: - Last for 5 minutes or less and go away with rest or medicine such as nitroglycerin. - Happen when the heart has to work harder, such as after a heavy meal or during physical activity or emotional stress. Angina may also happen when you are resting. Call 911 for emergency help right away if you have symptoms of a heart attack. The most common symptoms include: - Chest pain or pressure, squeezing, or fullness in the center of your chest that lasts more than a few minutes, or goes away and comes back (may feel like indigestion or heartburn) - Pain or discomfort in one or both arms or shoulders, or in your back, neck, jaw, or stomach - Trouble breathing - Breaking out in a cold sweat for no known reason - If your provider has prescribed nitroglycerin for angina, pain that does not go away after taking your nitroglycerin as directed Along with these symptoms, you may also feel very tired, faint, or be sick to your stomach. HOW IS IT DIAGNOSED? Your healthcare provider will ask about your symptoms and medical history and examine you. Tests may include: - Blood tests - An ECG (also called an EKG or electrocardiogram), which measures and records your heartbeat. - An exercise treadmill test to see how your heart works when you exercise - An echocardiogram, which uses sound waves (ultrasound) to see how well your heart is pumping - Angiogram, which is a series of X-rays taken after your healthcare provider injects a special dye into your blood vessels to show the [place] of the arteries and any blockage - CT scan, which uses X-rays and a computer to show detailed pictures of the arteries HOW IS IT TREATED? Your treatment depends on many factors, such as your age, heart muscle function, and other health problems. At first, treatment may include diet changes and an exercise program. Your healthcare provider may prescribe medicine. - Many people need to take 2 or more medicines to help prevent a heart attack or stroke. It may take several weeks or months to find the best treatment for you. - Your provider may also prescribe other types [...] may need balloon angioplasty or bypass surgery. - A balloon angioplasty opens blocked blood vessels and improves blood flow. A metal mesh device called a stent is usually left in the blood vessels to help keep them open. - Bypass surgery uses blood vessels from other parts of the body, or manmade material, to make a new path around a blocked area. HOW CAN I TAKE CARE OF MYSELF? If you have coronary artery disease, there are things you can do to take care of yourself now (more content not included)... Normal [facility] OBSOLETEon 02-16-2021 OBSOLETE Refill (AGCARDPOB) JOSE FITZGERALD ([id number]) 1955 M Date Time Provider Department 02/16/21 KEVIN TALLEY AGCARDPOB During your visit today, we recorded the following information about you: Jaz Miller LPN 02/16/2021 10:11 AM Signed Patient's request for medication is as follows: Pending Prescriptions Disp Refills CARVEDILOL 6.25 MG TABLET 60 tablet 0 Sig: TAKE 1 TABLET BY MOUTH TWICE A DAY (8A/8P) IJEOMA: Yes LISINOPRIL 5 MG TABLET 30 tablet 0 Sig: TAKE 1 TABLET BY MOUTH DAILY IJEOMA: Yes Last seen 12/19/2019. Over due appointment scheduled for 02/23/2021. Prescription(s) as above. Please process accordingly. Jaz Miller LPN Allergies As of Date: 02/16/2021 Noted Allergy Reaction PENICILLINS 02/24/2016 14 - Other: See Comments Date Reviewed: 12/19/2019 Reviewed by: Kevin Talley - Fully Assessed Reason for Visit: Refill Request [94] Order(s):carvedilol (COREG) 6.25 mg tabletTAKE 1 TABLET BY MOUTH TWICE A DAY (8A/8P)Disp: 60 tabletRfl: 0 lisinopril (ZESTRIL, PRINIVIL) 5 mg tabletTAKE 1 TABLET BY MOUTH DAILYDisp: 30 tabletRfl: 0 Prescriptions as of 02/16/2021 Sig: CARVEDILOL 6.25 MG TABLET TAKE 1 TABLET BY MOUTH TWICE * LISINOPRIL 5 MG TABLET TAKE 1 TABLET BY MOUTH DAILY THERA-M 9 MG IRON-400 MCG TAB* ARIPIPRAZOLE 20 MG TABLET Take 20 mg by mouth once german* CHOLECALCIFEROL (VITAMIN D3) * Take 2,000 Units by mouth onc* CLOPIDOGREL 75 MG TABLET Take 75 mg by mouth once german* LEVOTHYROXINE 50 MCG CAPSULE Take 50 mcg by mouth once ace* PANTOPRAZOLE 40 MG TABLET,DEL* Take 40 mg by mouth once german* PRAVASTATIN 40 MG TABLET Take 40 mg by mouth once german* DOCUSATE SODIUM 100 MG TABLET Take 100 mg by mouth once ace* CLOZAPINE 100 MG TABLET Take 100 mg by mouth once ace* MULTIVITAMIN ORAL Take 1 tablet by mouth once d* Problem List As Of Date 02/16/2021 Noted Resolved Paroxysmal ventricular tachycardia (HCC) [I47.2] Tachycardia [R00.0] Acquired hypothyroidism [E03.9] Cardiomyopathy (HCC) [I42.9] Chronic obstructive lung disease (HCC) [J44.9] Coronary arteriosclerosis [I25.10] Essential hypertension [I10] Hyperlipidemia [E78.5] Schizophrenia (HCC) [F20.9] Chronic congestive heart failure (HCC) [I50.9] Prescriptions ordered this encounter Disp Refills Start End CARVEDILOL 6.25 MG TABLET 60 t* 0 02/16/2021 Cmt: Refill Too Soon Sig: TAKE 1 TABLET BY MOUTH TWICE A DAY (8A/8P) LISINOPRIL 5 MG TABLET 30 t* 0 02/16/2021 Cmt: Refill Too Soon Sig: TAKE 1 TABLET BY MOUTH DAILY Medications Discontinued During This Encounter Prescriptions - carvedilol (COREG) 6.25 mg tablet (Discontinued) TAKE 1 TABLET BY MOUTH TWICE A DAY (8P) - lisinopril (ZESTRIL, PRINIVIL) 5 mg tablet (Discontinued) TAKE 1 TABLET BY MOUTH DAILY Encounter Status:Closed by KEVIN TALLEY MD on 02/16/21 [facility] OBSOLETEon 01-20-2021 OBSOLETE Refill (AGCARDPOB) JOSE FITZGERALD ([id number]) 1955 Date Time Provider Department 01/20/21 KEVIN TALLEY During your visit today, we recorded the following information about you: Jaz Miller LPN 01/20/2021 9:28 AM Signed Patient's request for medication is as follows: Pending Prescriptions Disp Refills CARVEDILOL 6.25 MG TABLET 60 tablet 0 Sig: TAKE 1 TABLET BY MOUTH TWICE A DAY (P) IJEOMA: Yes LISINOPRIL 5 MG TABLET 30 tablet 0 Sig: TAKE 1 TABLET BY MOUTH DAILY IJEOMA: Yes Last seen in the office on 12/19/2019. Follow up scheduled for 02/23/2021. Medications filled on 12/03/2020 for 60 days. Prescription(s) as above. Please process accordingly. Jaz Miller LPN Allergies As of Date: 01/20/2021 Noted Allergy Reaction PENICILLINS 02/24/2016 14 - Other: See Comments Date Reviewed: 12/19/2019 Reviewed by: Kevin Talley - Fully Assessed Reason for Visit: Refill Request [94] Order(s):carvedilol (COREG) 6.25 mg tabletTAKE 1 TABLET BY MOUTH TWICE A DAY (8A8P)Disp: 60 tabletRfl: 0 lisinopril (ZESTRIL, PRINIVIL) 5 mg tabletTAKE 1 TABLET BY MOUTH DAILYDisp: 30 tabletRfl: 0 Prescriptions as of 01/20/2021 Sig: CARVEDILOL 6.25 MG TABLET TAKE 1 TABLET BY MOUTH TWICE * LISINOPRIL 5 MG TABLET TAKE 1 TABLET BY MOUTH DAILY THERA-M 9 MG IRON-400 MCG TAB* ARIPIPRAZOLE 20 MG TABLET Take 20 mg by mouth once german* CHOLECALCIFEROL (VITAMIN D3) * Take 2,000 Units by mouth onc* CLOPIDOGREL 75 MG TABLET Take 75 mg by mouth once german* LEVOTHYROXINE 50 MCG CAPSULE Take 50 mcg by mouth once ace* PANTOPRAZOLE 40 MG TABLET,DEL* Take 40 mg by mouth once german* PRAVASTATIN 40 MG TABLET Take 40 mg by mouth once german* DOCUSATE SODIUM 100 MG TABLET Take 100 mg by mouth once ace* CLOZAPINE 100 MG TABLET Take 100 mg by mouth once ace* MULTIVITAMIN ORAL Take 1 tablet by mouth once d* Problem List As Of Date 01/20/2021 Noted Resolved Paroxysmal ventricular tachycardia (HCC) [I47.2] Tachycardia [R00.0] Acquired hypothyroidism [E03.9] More... Cardiomyopathy (HCC) [I42.9] Chronic obstructive lung disease (HCC) [J44.9] Coronary arteriosclerosis [I25.10] Essential hypertension [I10] Hyperlipidemia [E78.5] Schizophrenia (HCC) [F20.9] Chronic congestive heart failure (HCC) [I50.9] Prescriptions ordered this encounter Disp Refills Start End CARVEDILOL 6.25 MG TABLET 60 t* 0 01/20/2021 Cmt: Maximum Refills Reached Sig: TAKE 1 TABLET BY MOUTH TWICE A DAY (8P) LISINOPRIL 5 MG TABLET 30 t* 0 01/20/2021 Cmt: Maximum Refills Reached Sig: TAKE 1 TABLET BY MOUTH DAILY Medications Discontinued During This Encounter Prescriptions - carvedilol (COREG) 6.25 mg tablet (Discontinued) TAKE 1 TABLET BY MOUTH TWICE A DAY (8A/8P) - lisinopril (ZESTRIL, PRINIVIL) 5 mg tablet (Discontinued) TAKE 1 TABLET BY MOUTH DAILY Encounter Status:Closed by KEVIN TALLEY MD on 01/20/21 [facility] Susi 12-03-2020 [facility] Telephone (AGCARDPOB ) JOSE FITZGERALD ([id number]) 1955 M Date Time Provider Department 12/03/20 KEVIN TALLEY During your visit today, we recorded the following information about you: Jaz Miller LPN 12/03/2020 3:30 PM Signed Please contact patient and schedule annual appointment. He was las seen 12/19/2019. Thank you! DARIUS Guillory 12/03/2020 3:37 PM Signed I called and s[home with caregiver at care home and she stated that she will call back to schedule with Dr. Talley Thanks Dian Alexandre Allergies As of Date: 12/03/2020 Noted Allergy Reaction PENICILLINS 02/24/2016 14 - Other: See Comments Date Reviewed: 12/19/2019 Reviewed by: Kevin Talley - Fully Assessed Reason for Visit: Appointment [[id number]] Prescriptions as of 12/03/2020 Sig: CARVEDILOL 6.25 MG TABLET GIVE 1 TABLET BY MOUTH TWICE * LISINOPRIL 5 MG TABLET Take 1 tablet by mouth once d* THERA-M 9 MG IRON-400 MCG TAB* ARIPIPRAZOLE 20 MG TABLET Take 20 mg by mouth once german* CHOLECALCIFEROL (VITAMIN D3) * Take 2,000 Units by mouth onc* CLOPIDOGREL 75 MG TABLET Take 75 mg by mouth once german* LEVOTHYROXINE 50 MCG CAPSULE Take 50 mcg by mouth once ace* PANTOPRAZOLE 40 MG TABLET,DEL* Take 40 mg by mouth once german* PRAVASTATIN 40 MG TABLET Take 40 mg by mouth once german* DOCUSATE SODIUM 100 MG TABLET Take 100 mg by mouth once ace* CLOZAPINE 100 MG TABLET Take 100 mg by mouth once ace* MULTIVITAMIN ORAL Take 1 tablet by mouth once d* Problem List As Of Date 12/03/2020 Noted Resolved Paroxysmal ventricular tachycardia (HCC) [I47.2] Tachycardia [R00.0] Acquired hypothyroidism [E03.9] More... Cardiomyopathy (HCC) [I42.9] Chronic obstructive lung disease (HCC) [J44.9] Coronary arteriosclerosis [I25.10] Essential hypertension [I10] Hyperlipidemia [E78.5] Schizophrenia (HCC) [F20.9] Chronic congestive heart failure (HCC) [I50.9] Encounter Status:Closed by JAZ MILLER on 12/03/20 [facility] OBSOLETEon 12-03-2020 OBSOLETE Refill (AGCARDPOB) JOSE FITZGERALD ([id number]) 1955 Date Time Provider Department 12/03/20 KEVIN TALLEY During your visit today, we recorded the following information about you: Jaz Miller LPN 12/03/2020 3:31 PM Signed Patient's request for medication is as follows: Pending Prescriptions Disp Refills CARVEDILOL 6.25 MG TABLET 60 tablet 1 Sig: TAKE 1 TABLET BY MOUTH TWICE A DAY (8A/8P) IJEOMA: No LISINOPRIL 5 MG TABLET 30 tablet 1 Sig: TAKE 1 TABLET BY MOUTH DAILY IJEOMA: Yes Last seen in the office on 12/19/2019. Patient is on recall list for 12/18/2020. Message sent to clerical staff requesting they contact patient for appointment. Prescription(s) as above. Please process accordingly. Jaz Miller LPN Allergies As of Date: 12/03/2020 Noted Allergy Reaction PENICILLINS 02/24/2016 14 - Other: See Comments Date Reviewed: 12/19/2019 Reviewed by: Kevin Talley - Fully Assessed Reason for Visit: Refill Request [94] Order(s):carvedilol (COREG) 6.25 mg tabletTAKE 1 TABLET BY MOUTH TWICE A DAY (8A/8P)Disp: 60 tabletRfl: 1 lisinopril (ZESTRIL, PRINIVIL) 5 mg tabletTAKE 1 TABLET BY MOUTH DAILYDisp: 30 tabletRfl: 1 Prescriptions as of 12/03/2020 Sig: CARVEDILOL 6.25 MG TABLET TAKE 1 TABLET BY MOUTH TWICE * LISINOPRIL 5 MG TABLET TAKE 1 TABLET BY MOUTH DAILY THERA-M 9 MG IRON-400 MCG TAB* ARIPIPRAZOLE 20 MG TABLET Take 20 mg by mouth once german* CHOLECALCIFEROL (VITAMIN D3) * Take 2,000 Units by mouth onc* CLOPIDOGREL 75 MG TABLET Take 75 mg by mouth once german* LEVOTHYROXINE 50 MCG CAPSULE Take 50 mcg by mouth once ace* PANTOPRAZOLE 40 MG TABLET,DEL* Take 40 mg by mouth once german* PRAVASTATIN 40 MG TABLET Take 40 mg by mouth once german* DOCUSATE SODIUM 100 MG TABLET Take 100 mg by mouth once ace* CLOZAPINE 100 MG TABLET Take 100 mg by mouth once ace* MULTIVITAMIN ORAL Take 1 tablet by mouth once d* Problem List As Of Date 12/03/2020 Noted Resolved Paroxysmal ventricular tachycardia (HCC) [I47.2] Tachycardia [R00.0] Acquired hypothyroidism [E03.9] More... Cardiomyopathy (HCC) [I42.9] Chronic obstructive lung disease (HCC) [J44.9] Coronary arteriosclerosis [I25.10] Essential hypertension [I10] Hyperlipidemia [E78.5] Schizophrenia (HCC) [F20.9] Chronic congestive heart failure (HCC) [I50.9] Prescriptions ordered this encounter Disp Refills Start End CARVEDILOL 6.25 MG TABLET 60 t* 1 12/03/2020 Cmt: Maximum Refills Reached Sig: TAKE 1 TABLET BY MOUTH TWICE A DAY (8A/8P) LISINOPRIL 5 MG TABLET 30 t* 1 12/03/2020 Cmt: Maximum Refills Reached Sig: TAKE 1 TABLET BY MOUTH DAILY Medications Discontinued During This Encounter Prescriptions - carvedilol (COREG) 6.25 mg tablet (Discontinued) GIVE 1 TABLET BY MOUTH TWICE DAILY (8A/8P) - lisinopril (ZESTRIL, PRINIVIL) 5 mg tablet (Discontinued) Take 1 tablet by mouth once daily. Encounter Status:Closed by KEVIN TALLEY MD on 12/03/20 [facility] Thyroid/Parathyroidon 04- 23-2018 US Thyroid/Parathyroid Patient Name: JOSE DU Ultrasound Exam Date/Time 02/26/2018 13:11:13 EDT Exam US Parathyroid Ordering Physician MD CHAPIS BIJAN Accession Number [id number] CPT4 Codes 15784 () Reason For Exam Nontoxic multinodular goiter Report CLINICAL INFORMATION: Thyroid nodules. Ultrasound of the thyroid is provided. Comparison: June 02, 2016 thyroid ultrasound FINDINGS: The right lobe of thyroid measures 1.0 x 1.2 x 3.4 centers. The left lobe measures 1.1 x 1.0 x 3.1 cm. The thyroid isthmus measures approximately 0.3 cm in thickness. On the right, no discrete thyroid nodules are seen. On the left, two discrete thyroid nodules are described as below: Nodule Location: Left lobe upper/midpole Size: 0.2 x 0.5 x 0.3cm (AP x transverse x cephalocaudad) Echogenicity: Hypoechoic, partially cystic Margins: Ill-defined Calcifications: None identified TI-RADS category*: 3 Change since last exam: Slight interval increase in size compared to previous, where it measured 0.2 x 0.2 x 0.3 cm. Nodule Location: Left lobe midpole laterally Size: 0.3 x 0.3 x 0.3cm (AP x transverse x cephalocaudad) Echogenicity: Spongiform, hypoechoic Margins: well-circumscribed Calcifications: None identified TI-RADS category*: 2 Change since last exam: Less well delineated on the prior comparison exam images, however appears similar. Impression: Subcentimeter left thyroid lobe nodules as described above. The larger nodule corresponds to a TI-RADS category 3. Follow-up is recommended as below. *TI-RADS (2017) Reference: Meenakshi Bell. ACR Thyroid Imaging, Reporting and Data System (TI-RADS): White Paper of the ACR TI-RADS Committee. J Am [facility]. February 2017 Thyroid nodule details (add points for total score): Composition(points): 1 - mixed cystic and solid 2 - solid Echogenicity: 1 - hyperechoic or isoechoic 2 - hypoechoic 3 - very hypoechoic Shape: 3 - taller than wide Margin: 2 - lobulated or irregular 3 - extrathyroidal extension Echogenic foci: 1 - macrocalcifications 2 - rim calcification 3 - microcalcifications Risk for malignancy: TI-RADS 1 = 0 points - (benign) <2% risk TI-RADS 2 = 2 points - (not suspicious) <5% TI-RADS 3 = 3 points - (mildly suspicious) <5% FNA when >/= 2.5cm Follow when >1.5cm at 1, 3 and 5 years TI-RADS 4 = 4-6 points - (moderately suspicious) 5-20% FNA when >/= 1.5cm Follow when >1.0cm at 1, 2, 3 and 5 years TI-RADS 5 = 7+ points - (highly suspicious) >20% FNA when >/= 1.0cm Follow when >0.5cm every year for up to 5 years Note: Nodule vascularity is no longer considered a useful characteristic to assess risk for malignancy. Report Dictated on Final Dictated: 02/26/2018 4:13 pm Dictating Physician: KY DAVIS Signed Date and Time: 02/26/2018 4:17 pm Signed by: KY DAVIS Transcribed Date and Time: 02/26/2018 4:13 Normal [facility] Vital Signs Date Time Vital Sign Value Performing Clinician Cheryl lake 02-23-2021 11:04-0400 Body height 182.9 cm [employer] Work Phone: [facility] 02-23-2021 11:04-0400 Body weight 85.73 kg [employer] Work Phone: [facility] 02-23-2021 11:04-0400 Diastolic blood pressure 80 mm[Hg] [employer] Work Phone: [facility] 02-23-2021 11:04-0400 Heart rate 80 /min [employer] Work Phone: [facility] 02-23-2021 11:04-0400 Respiratory rate 18 /min [employer] Work Phone: [facility] 02-23-2021 11:04-0400 SaO2% (BldA) [Mass fraction] 97 % Kevin Talley Work Phone: [facility] 02-23-2021 11:040 Systolic blood pressure 112 mm[Hg] Kevin Talley Work Phone: [facility] Encounters Encounter Date Encounter Type Care Provider Facility Start: 03-25-2025 End: 03-25-2025 ambulatory [facility] Facility:[facility] Start: 02-25-2025 End: 02-25-[address] Lynn Zurita MD [facility] Work Phone: Start: 02-25-2025 End: 02-25-[address] Lynn Zurita MD -[facility] Work Phone: Start: 02-25-[address] Lynn Zurita MD -[facility] Work Phone: Start: 02-25-2025 End: 02-25-2025 ambulatory Lynnluke Zurita Facility:[facility] Start: 02-14-2025 ambulatory Lynn Antonalberta Facility:[facility] Start: 02-14-[address] Lynn Zurita MD -[facility] Work Phone: Start: 02-06-2025 [facility] Start: 02-06-[address] Lynn Zurita MD -[facility] Work Phone: Start: 02-05-2025 End: 02-05-[address] Lynn Zurita MD [facility] Work Phone: Start: 02-05-2025 End: 02-05-[address] Lynn Zurita MD -[facility] Work Phone: Start: 02-05-[address] Lynn Zurita MD -[facility] Work Phone: Start: 02-05-2025 End: 02-05-2025 ambulatory Lynn Gudla OLS Facility:[facility] Start: 01-28-2025 End: 01-28-[address] Lynn Zurita MD [facility] Work Phone: Start: 01-28-2025 End: 01-28-[address] Lynn Zurita MD -[facility] Work Phone: Start: 01-28-2025 End: 01-28-2025 ambulatory Lynn Gudla Facility:[facility] Start: 12-30-2024 ambulatory Lynn Gudla Facility:[facility] Start: 12-30-[address] Lynn Zurita MD -[facility] Work Phone: Start: 12-02-2024 ambulatory Lynn Gudla Facility:[facility] Start: 12-02-[address] Lynn Zurita MD -[facility] Work Phone: Start: 11-12-2024 ambulatory Lynn Gudla Facility:[facility] Start: 11-12-[address] Lynn Zurita MD -[facility] Work Phone: Start: 11-04-2024 ambulatory Lynn Gudla Facility:[facility] Start: 11-04-[address] Lynn Zurita MD -[facility] Work Phone: Start: 10-14-2024 End: 10-14-2024 ambulatory Lynn Gudla OLS Facility:[facility] Start: 10-07-2024 End: 10-07-2024 ambulatory Lynn Gudla OLS Facility:[facility] Start: 09-09-2024 End: 09-09-2024 ambulatory Lynn Gudla Facility:[facility] Start: 08-12-2024 End: 08-12-2024 ambulatory Lynn Gudla Facility:[facility] Start: 07-22-2024 End: 07-22-2024 ambulatory [facility] Gud[facility] Facility:[facility] Start: 07-15-2024 End: 07-15-2024 [facility] Start: 06-17-2024 End: 06-17-2024 ambulatory [facility] Gudla Facility:[facility] Start: 05-26-2024 ambulatory [facility] Gudla Facility:[facility] Start: 05-17-2024 End: 05-17-2024 [facility] Start: 04-19-2024 End: 04-19-2024 [facility] Start: 02-23-[address] [facility] Work Phone: Start: 01-25-2024 End: 01-25-2024 ambulatory [facility] Work Phone: Start: 01-25-2024 End: 01-25-2024 [place]ed [place] [facility] [place]: Start: 12-28-2023 End: 12-28-2023 ambulatory [facility] Work Phone: Start: 12-28-2023 End: 12-28-2023 [place]ed [facility] [facility] [place]: Start: 12-28-[address] [facility] Work Phone: Start: 12-01-2023 End: 12-01-2023 ambulatory [facility] Work Phone: Start: 12-01-2023 End: 12-01-2023 [place]ed [place] [facility] [place]: Start: 11-30-2023 End: 11-30-2023 ambulatory [facility] Work Phone: Start: 11-30-2023 End: 11-30-2023 Departed [facility] [place]: Start: 11-30-[address] [facility] Work Phone: Start: 11-02-2023 End: 11-02-2023 ambulatory [facility] Work Phone: Start: 11-02-2023 End: 11-02-2023 [place]ed [facility] [place]: Start: 10-05-2023 End: 10-05-2023 ambulatory [facility] Work Phone: Start: 10-05-2023 End: 10-05-2023 [place]ed [facility] [place]: Start: 10-05-[address] [facility] Work Phone: Start: 10-02-2023 End: 10-02-2023 ambulatory [facility] Work Phone: Start: 10-02-2023 End: 10-02-2023 Patient encounter procedure [facility] Work Phone: Start: 09-11-2023 End: 09-11-2023 ambulatory [facility] Work Phone: Start: 09-11-2023 End: 09-11-2023 [place]ed [facility] [place]: Start: 09-07-2023 End: 09-07-2023 ambulatory [facility] Work Phone: Start: 09-07-2023 End: 09-07-2023 [place]ed [facility] [place]: Start: 09-07-[address] [facility] Work Phone: Start: 08-21-2023 End: 08-21-2023 ambulatory [facility] Work Phone: Start: 08-21-2023 End: 08-21-2023 [place]ed [facility] [place]: Start: 08-10-2023 End: 08-10-2023 [place]ed [facility] [place]: Start: 07-13-2023 End: 07-13-2023 ambulatory [facility] Work Phone: Start: 07-13-2023 End: 07-13-2023 [place]ed [facility] [place]: Start: 07-13-[address] [facility] Work Phone: Start: 06-27-2023 End: 06-27-2023 ambulatory [facility] Work Phone: Start: 06-27-2023 End: 06-27-2023 Dep[place]ed [facility] [place]: Start: 06-27-[address] [facility] Work Phone: Start: 06-26-2023 End: 06-26-2023 Dep[place]ed [facility] [place]: Start: 06-26-[address] [facility] Work Phone: Start: 06-19-2023 End: 06-19-2023 ambulatory [facility] Work Phone: Start: 06-19-2023 End: 06-19-2023 [place]ed [facility] [place]: Start: 06-19-[address] [facility] Work Phone: Start: 06-15-2023 End: 06-15-2023 ambulatory [facility] Work Phone: Start: 06-15-2023 End: 06-15-2023 [place]ed [facility] [place]: Start: 06-15-[address] [facility] Work Phone: Start: 05-18-2023 End: 05-18-2023 ambulatory [facility] Work Phone: Start: 05-18-2023 End: 05-18-2023 [place]ed [facility] [place]: Start: 05-18-[address] [facility] Work Phone: Start: 04-20-2023 End: 04-20-2023 ambulatory [facility] Work Phone: Start: 04-20-2023 End: 04-20-2023 Departed [facility] [place]: Start: 03-23-2023 End: 03-23-2023 ambulatory [facility] Work Phone: Start: 03-23-2023 End: 03-23-2023 [place]ed [facility] Start: 02-23-[address] [facility] Start: 01-26-2023 End: 01-26-2023 ambulatory [facility] Work Phone: Start: 01-26-2023 End: 01-26-2023 Dep[place]ed [facility] Start: 12-29-2022 End: 12-29-2022 Departed [facility] Start: 12-01-2022 End: 12-01-2022 Dep[place]ed [facility] Start: 12-01-[address] [facility] Start: 11-24-2022 End: 11-24-2022 ambulatory [facility] Work Phone: Start: 11-24-2022 End: 11-24-2022 [place]ed [facility] Start: 11-24-[address] [facility] Start: 11-08-2022 End: 11-08-2022 [place]ed [facility] Start: 10-25-2022 End: 10-25-2022 ambulatory [facility] Work Phone: Start: 10-25-2022 End: 10-25-2022 [place]ed [facility] Start: 01-11-2022 Refill Kevin Talley MD Work Phone: [facility] Comment on above: Refill Request Start: 02-23-2021 End: 02-23-2021 Patient encounter procedure Kevin Talley Work Phone: [facility] Comment on above: Coronary artery dise ase involving jena coronary artery of jena heart without angina pectoris (Primary Dx); Ischemic cardiomyopathy Start: 12-03-2020 End: 12-03-2020 Telephone encounter Kevin Talley Work Phone: [facility] Comment on above: Appointment Start: 03-14-2018 End: 03-14-2018 Ambulatory KEVIN TALLEY Facility:[facility] Start: 02-26-2018 [facility] Start: 08-07-2017 Ambulatory SARAH ROB [facility] Procedures Date Procedure Procedure Detail Performing Clinician Start: 02-04-[address] Jamar Zurita MD Start: 10-02-2023 CT of abdomen and pe lvis without contrast Start: 06-19-2023 Urine culture Plan of Treatment Date Care Activity Detail Author Start: 11-06-2021 ADVANCE DIRECTIVE DISCUSSION ADVANCE DIRECTIVE DISCUSSION [facility] Start: 07-07-2021 Influenza vaccination [facility] Start: 12-19-2020 BP CONTROLLED (<130/80) BP CONTROLLE D (<130/80) [facility] Start: 07-07-2020 Influenza vaccination INFLUENZA (#1) [facility] Start: 2020 ADVANCE DIRECTIVE DISCUSSION ADVANCE DIRECTIVE DISCUSSION [facility] Start: 2020 PNEUMOVAX AGE 65 AND OVER WITH 5YR LOOKBACK (#1) PNEUMOVAX AGE 65 AND OVER WITH 5YR LOOKBACK (#1) [facility] Start: 09-01-2018 DIABETES SCREEN DIABETES SCREEN [facility] Start: 2010 PROSTATE CANCER SCRE ENING DISCUSSION PROSTATE CANCER SCREENING DISCUSSION [facility] Start: 2005 Screening for malign ant neoplasm of colon [facility] Start: 2005 SHINGRIX VACCINE (1 of 2) SHINGRIX V ACCINE (1 of 2) [facility] Start: 2000 COLOGUARD (FIT-DNA) COLOGUARD (FIT-D NA) [facility] Start: 2000 Colonoscopy COLONOSCOPY [facility] Start: 2000 COLORECTAL CANCER SCREENING COLORECTAL CANCER SCREENING [facility] Start: [address] COLONOGRAPHY [facility] Start: 2000 FECAL OCCULT BLOOD FECAL OCCULT BLOO D [facility] Start: 2000 SIGMOIDOSCOPY SIGMOIDOSCOPY [facility] Start: 1990 LIPID SCREEN LIPID SCREEN [facility] Start: 1974 Urine microalbumin profile DTAP,TDAP ,TD (1 - Tdap) [facility] Start: 1973 ANNUAL PCP TEAM ER REGISTRAR VENTURA DISEASE VISIT ANNUAL PCP TEAM CHRONIC DISEASE VISIT [facility] Start: 1973 BP CONTROLLED (<130/80) BP CONTROLLE D (<130/80) [facility] Start: 1973 Hepatitis B surface antibody level LDL CHOLESTEROL [facility] Start: 1973 HEPATITIS C SCREENING HEPATITIS C SC REENING [facility] Start: 1973 HIV SCREENING HIV SCREENING [facility] Start: 1973 SPIROMETRY SPIROMETRY [facility] Start: 1967 Adult depression scr eening assessment DEPRESSION SCREENING [facility] Start: 1960 COVID-19 VACCINE (1) COVID-19 VACCIN E (1) [facility] Start: 1955 ABDOMINAL AORTIC ANE URYSM SCREENING ABDOMINAL AORTIC ANEURYSM SCREENING [facility] Payers Date Payer Category Payer Self-pay 2024 Unknown [id number] 2024 Unknown [id number] 2020 Medicare [id number] 2016 Medicare [id number] Medicare [id number] Private Health Insurance Unknown [id number] 2.16.8 [id number] Unknown [id number] 2.16.8 [id number] Unknown [id number] 2.16.8 [id number] Unknown [id number] 2.16.8 [id number] Unknown [id number] 2.16.8 [id number] Unknown [id number] 2.16.8 [id number] Unknown [id number] 2.16.8 40.1.639505.3.579.2.462 Unknown [id number] 2.16.8 40.1.469972.3.579.2.462 Unknown [id number] 2.16.8 40.1.760349.3.579.2.462 Unknown [id number] 2.16.8 40.1.701001.3.579.2.462 Unknown [id number] 2.16.8 [id number] Unknown [id number] 2.16.8 40.1.489197.3.579.2.462 Unknown [id number] 2.16.8 40.1.691954.3.579.2.462 Unknown [id number] 2.16.8 [id number] Unknown [id number] 2.16.8 40.1.233466.3.579.2.462 Unknown [id number] 2.16.8 40.1.139509.3.579.2.462 Unknown [id number] 2.16.8 [id number] Unknown [id number] 2.16.8 [id number] Unknown [id number] 2.16.8 [id number] Social History Date Type Detail Facility Start: 12-19-2019 End: 02-23-2021 Tobacco smoking status KYIS Former smoker [facility] End: 11-06-2010 History of tobacco use Current smoker [facility] Start: 12-19-2019 End: 02-23-2021 Tobacco use and exposure Never used [facility] Start: 12-19-2019 End: 02-23-2021 Alcohol intake Current non-drinker of alcohol (finding) [facility] Start: 1955 Sex Assigned At Not on file [facility] Exposure to SARS-CoV -2 (event) Not sure [facility] Start: 1955 Sex Assigned At Male [facility] Tobacco smoking stat us KYIS Unknown if ever smoked [facility] Work Phone: Start: 02-20-2025 End: 02-26-2025 Sex Male (finding) [facility] Note 01-11-2022 Telephone Encounter - Jaz Miller LPN - 01/11/2022 10:52 AM EST Note [...] 02/28/2022. Prescription(s) as above. Please process accordingly. Jaz Miller LPN documented in this encounter [facility] Progress note 02-23-2021 Note Date & Type Note Facility 02-23-2021 Note HNO ID: [id number] Author: Kevin Talley Service: ? 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 He is accompanied by his case folder. He comes today for a follow-up appointment. He denies chest pain, shortness of breath, orthopnea, cough, edema, palpitations, PND, lightheadedness or syncope. He has been doing well. He climbs 3 flights of stairs at his care home at least 3 times a day without any difficulty. He also rides his bike/scooter without any cardiac symptoms. At today's visit he is accompanied by his case folder. Patient denies any chest pain shortness [...] auscultation bilaterally Abdomen (more content not included)... 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 He is accompanied by his case folder. He comes today for a follow-up appointment. He denies chest pain, shortness of breath, orthopnea, cough, edema, palpitations, PND, lightheadedness or syncope. He has been doing well. He climbs 3 flights of stairs at his care home at least 3 times a day without any difficulty. He also rides his bike/scooter without any cardiac symptoms. At today's visit he is accompanied by his case folder. Patient denies any chest pain shortness [...] GRACIA: No evidence of PFO. EF 60-65% 2016: EF 33% Coronary Angiography 12/09/2011: Mid LAD 95% stenosis s/p: DOMINGA, RCA ectatic Assessment and plan: 1. Coronary artery disease - ICD10: I 25.10 Does not have any cardiac complaints. As per the case folder he has not been noted to have any decrease in his exercise tolerance and goes about his day-to-day activities. He is to continue Plavix beta-blockers and statins. Annual lipid panel being monitored by his PCP. 2. Cardiomyopathy ICD10: I25.5 To continue beta-blockers and NIECY inhibitor's in the current dose. Patient appears euvolemic. CHF core measures emphasized with him case folder. Given underlying psychiatric issues he was found not to be a suitable candidate for ICD. 3. Nonsustained VT ICD 10: I47.2 Patient has had no malignant arrhythmias since his index hospitalization in 2011. He has been off amiodarone since then. Kevin Talley MD documented in this encounter [facility] Instructions 02-23-2021 Patient Instructions Note Date & [...] of your heart. documented in this encounter [facility] Nurse Note 02-23-2021 Katiuska Zhou ([place]) - 02/23/2021 11:09 AM EDT Note Date & Type Note Facility 02-23-2021 Nurse Note Patient has no cardiac complaints today. Katiuska Zhou CMA documented in this encounter [facility] Evaluation note Note Date & Type Note Facility Evaluation note Diagnosis Coronary artery disease involving jena coronary artery of jena heart without angina pectoris- Primary Ischemic cardiomyopathy Other specified forms of chronic ischemic heart disease documented in this encounter [facility] Evaluation note Note Date & Type Note Facility Evaluation note No assessment information availa ble [facility] Work Phone: Reason for referral (narrative) Note Date & Type Note Facility Reason for referral (narrative) No reason for referral information available [facility] Work Phone: Summary Purpose Family History No Family History Records FoundNo Family History Records FoundNo Family History Records FoundNo Family History Records FoundNo Family History Records Found Advance Directives No Advanced Directives Records FoundNo Advanced Directives Records FoundNo Advanced Directives Records FoundNo Advanced Directives Records FoundNo Advanced Directives Records Found Chief Complaint and Reason for Visit Chief Complaint DETENTION LAB WOR K DETENTION LAB WORK Chief Complaint DETENTION LAB WOR K DETENTION LAB WORK DETENTION LABWORK Chief Complaint DETENTION LAB WOR K DETENTION LAB WORK DETENTION LABWORK DETENTION LABWORK DETENTION LABWORK DETENTION LAB WORK Chief Complaint DETENTION LABWORK DETENTION LAB WORK DETENTION LABWORK DETENTION LABWORK Chief Complaint DETENTION LABWORK DETENTION LAB WORK DETENTION LAB WORK DETENTION LAB WORK LABWORK DETENTION LAB WORK DETENTION LAB WORK DETENTION LAB WORK Chief Complaint DETENTION LAB WOR K DETENTION LAB WORK DETENTION LAB WORK LABWORK DETENTION LAB WORK DETENTION LAB WORK DETENTION LAB WORK DETENTION LAB WORK Chief Complaint DETENTION LAB WOR K DETENTION LAB WORK LABWORK DETENTION LAB WORK DETENTION LAB WORK DETENTION LAB WORK DETENTION LAB WORK DETENTION LABWORK DETENTION LABWORK Chief Complaint DETENTION LAB WOR K DETENTION LAB WORK LABWORK DETENTION LAB WORK DETENTION LAB WORK DETENTION LAB WORK DETENTION LAB WORK DETENTION LABWORK DETENTION LABWORK LABWORK Chief Complaint DETENTION LAB WOR K LABWORK DETENTION LAB WORK DETENTION LAB WORK DETENTION LAB WORK DETENTION LAB WORK DETENTION LABWORK DETENTION LABWORK DETENTION LAB WORK LABWORK Chief Complaint DETENTION LAB WOR K LABWORK DETENTION LAB WORK DETENTION LAB WORK DETENTION LAB WORK DETENTION LAB WORK DETENTION LABWORK DETENTION LABWORK DETENTION LAB WORK LABWORK ABD PAIN WEIGHT LOSS DETENTION LABWORK Chief Complaint DETENTION LAB WOR K DETENTION LABWORK DETENTION LABWORK DETENTION LAB WORK LABWORK ABD PAIN WEIGHT LOSS DETENTION LABWORK DETENTION LAB WORK Chief Complaint DETENTION LABWORK DETENTION LABWORK DETENTION LAB WORK LABWORK ABD PAIN WEIGHT LOSS DETENTION LABWORK DETENTION LAB WORK DETENTION LABWORK Chief Complaint DETENTION LAB WOR K LABWORK ABD PAIN WEIGHT LOSS DETENTION LABWORK DETENTION LAB WORK DETENTION LAB WORK DETENTION LABWORK Chief Complaint ABD PAIN WEIGHT LOSS DETENTION LABWORK DETENTION LAB WORK DETENTION LAB WORK DETENTION LABWORK DETENTION LAB WORK Chief Complaint ABD PAIN WEIGHT LOSS DETENTION LABWORK DETENTION LAB WORK DETENTION LAB WORK DETENTION LABWORK DETENTION LAB WORK LABWORK Chief Complaint DETENTION LAB WOR K DETENTION LABWORK DETENTION LAB WORK LABWORK DETENTION LAB WORK Chief Complaint Admit Date DETENTION LAB WORK November 04 5:00am DETENTION LAB WORK November 12, 2024 5:00am LABWORK December 30, 2024 5:00am DETENTION LAB WORK January 28, 2025 5 :00am Chief Complaint Admit Date DETENTION LAB WORK November 04 5:00am DETENTION LAB WORK November 12, 2024 5:00am LABWORK December 30, 2024 5:00am DETENTION LAB WORK January 28, 2025 5 :00am DETENTION LAB WORK February 05, 2025 5: 00am Additional Source Comments (unrecognized sect ion and content) No Status Records FoundNo Status Records FoundNo Status Records FoundNo Status Records FoundNo Status Records Found INFORMATION SOURCE (unrecogn ized section and content) DATE CREATED AUTHOR 04/25/2018 [facility] DATE CREATED AUTHOR AUTHOR'S ORGANIZ ATION [facility] DATE CREATED AUTHOR AUTHOR'S ORGANIZ ATION 04/26/2018 [facility] DATE CREATED AUTHOR AUTHOR'S ORGANIZ ATION 02/26/2021 [facility] DATE CREATED AUTHOR AUTHOR'S ORGANNICOLAS ATION 04/10/2025 [facility] Source Comments (unrecognize d section and content) In the event this informatio n is protected by the Federal Confidentiality of Alcohol and Drug Abuse Patient Records regulations: The Federal rules restrict any use of the information to criminally investigate or prosecute any alcohol or drug abuse patient.[facility] the event this information is protected by the Federal Confidentiality of Alcohol and Drug Abuse Patient Records regulations: The Federal rules restrict any use of the information to criminally investigate or prosecute any alcohol or drug abuse patient.[facility] the event this information is protected by the Federal Confidentiality of Alcohol and Drug Abuse Patient Records regulations: The Federal rules restrict any use of the information to criminally investigate or prosecute any alcohol or drug abuse patient.[facility] Reason for Visit (unrecogniz ed section and content) Reason Comments Appointment Reason Comments CARD Follow Up Annual Reason Comments Refill Request Telephone Encounter - Dian Alexandre - 12/03/2020 3:36 PM ESTTelephone Encounter - Jaz Miller - 12/03/2020 3:29 PM EST Miscellaneous Notes (unrecog nized section and content) I called and s[home with caregiver at care home and she stated that she will call back to schedule with Dr. Mayank Alexandre Please contact patient and schedule annual appointment. He was las seen 12/19/2019. Thank you! Jaz Miller LPN documented in this encounter Care Teams (unrecognized sec tion and content) Team Status: Active Member Role Status Dates Dr. Lynn Zurita MD Primary Care Provider Active Team Status: Active Member Role Status Dates Dr. Lynn Zurita MD Primary Care Provider Active Start: November 04, 2024 Dr. Lynn KHANNA MD Attending Provider Active Start: November 04, 2024 Team Status: Active Member Role Status Dates Dr. Lynn Zurita MD Primary Care Provider Active Start: November 12, 2024 Dr. Lynn KHANNA MD Attending Provider Active Start: November 12, 2024 Team Status: Active Member Role Status Dates Dr. Lynn Zurita MD Primary Care Provider Active Start: December 02, 2024 Dr. Lynn KHANNA MD Attending Provider Active Start: December 02, 2024 Team Status: Active Member Role Status Dates Dr. Lynn Zurita MD Primary Care Provider Active Start: December 30, 2024 Dr. Lynn KHANNA MD Attending Provider Active Start: December 30, 2024 Team Status: Inactive Member Role Status Dates Dr. Lynn Zurita MD Primary Care Provider Active Start: January 28, 2025 End: January 28, 2025 Dr. Lynn KHANNA MD Attending Provider Active Start: January 28, 2025 End: January 28, 2025 Team Status: Active Member Role Status Dates Dr. Lynn Zurita MD Primary Care Provider Active Start: February 05, 2025 Dr. Lynn KHANNA MD Attending Provider Active Start: February 05, 2025 Team Status: Active Member Role Status Dates Dr. Lynn Zurita MD Primary Care Provider Active Start: February 06, 2025 Dr. Lynn KHANNA MD Attending Provider Active Start: February 06, 2025 Team Status: Active Member Role Status Dates Dr. Lynn Zurita MD Primary Care Provider Active Start: February 14, 2025 Dr. Lynn KHANNA MD Attending Provider Active Start: February 14, 2025 Team Status: Active Member Role Status Dates Dr. Lynn KHANNA MD Primary Care Provider Active Team Status: Inactive Member Role Status Dates Dr. Lynn KHANNA MD Attending Provider Active Team Status: Active Member Role Status Dates Dr. Lynn KHANNA MD Attending Provider Active Team Status: Active Member Role Status Dates Dr. Lynn KHANNA MD Primary Care Provider, Attend ing Provider Active Team Status: Active Member Role Status Dates Dr. Lynn KHANNA MD Primary Care Pr ovider, Attending Provider, Referring Provider Active Vascular Radiologist Relationship Specialty [place] [address] PCP - General Family Practice 02/23/21 Team Status: Inactive Member Role Status Dates Dr. Lynn Zurita MD Attending Provider Active Team Status: Active Member Role Status Dates Dr. Lynn Zurita MD Attending Provider Active Team Status: Inactive Member Role Status Dates Dr. Lynn KHANNA MD Primary Care Provider, Attend ing Provider Active Team Status: Inactive Member Role Status Dates Dr. Lynn KHANNA MD Primary Care Pr ovider, Attending Provider, Referring Provider Active Team Status: Inactive Member Role Status Dates Dr. Lynn Zurita MD Primary Care Provi [place], Attending Provider, Referring Provider Active Team Status: Active Member Role Status Dates Dr. Lynn Zurita MD Primary Care Provider Active Dr. Lynn KHANNA MD Attending Provider Active Team Status: Inactive Member Role Status Dates Dr. Lynn Zurita MD Primary Care Provider Active Dr. Lynn KHANNA MD Attending Provider Active Team Status: Inactive Member Role Status Dates Dr. Lynn Zurita MD Primary Care Provider Active Dr. Lynn KHANNA MD Attending Provider, Referring Provider Active Team Status: Active Member Role Status Dates Dr. Lynn Zurita MD Primary Care Provider Active Dr. Lynn KHANNA MD Attending Provider, Referring Provider Active Team Status: Inactive Member Role Status Dates Dr. Lynn Zurita MD Primary Care Provider Active Start: February 05, 2025 End: February 05, 2025 Dr. Lynn KHANNA MD Attending Provider Active Start: February 05, 2025 End: February 05, 2025 Team Status: Active Member Role Status Dates Dr. Lynn Zurita MD Primary Care Provider Active Start: February 25, 2025 Dr. Lynn KHANNA MD Attending Provider Active Start: February 25, 2025 Team Status: Inactive Member Role Status Dates Dr. Lynn Zurita MD Primary Care Provider Active Start: February 25, 2025 End: February 25, 2025 Dr. Lynn KHANNA MD Attending Provider Active Start: February 25, 2025 End: February 25, 2025 Goals (unrecognized section and content) Goals may be documented in a n alternate sectionGoals may be documented in an alternate sectionGoals may be documented in an alternate sectionGoals may be documented in an alternate sectionGoals may be documented in an alternate sectionGoals may be documented in an alternate sectionGoals may be documented in an alternate sectionGoals may be documented in an alternate sectionGoals may be documented in an alternate sectionGoals may be documented in an alternate sectionGoals may be documented in an alternate sectionGoals may be documented in an alternate sectionGoals may be documented in an alternate sectionGoals may be documented in an alternate sectionGoals may be documented in an alternate sectionGoals may be documented in an alternate sectionGoals may be documented in an alternate sectionGoals may be documented in an alternate sectionGoals may be documented in an alternate sectionGoals may be documented in an alternate sectionGoals may be documented in an alternate sectionGoals may be documented in an alternate sectionGoals may be documented in an alternate sectionGoals may be documented in an alternate sectionGoals may be documented in an alternate section FOR RECORDS PERTAINING TO PATIENTS WHO ARE [...] BE BASED ON THE PRIMARY CLINICAL RECORDS. [facility] [email or web address] [facility]. provides no warranty or guarantee of the accuracy or completeness of information in this document.
--- OUTSIDE RECORDS SUMMARY | 2025-04-14 04:54 | XMS RPT_ITS | CCD ---
Author Organization [facility] ion [facility] SANIT[facility] AIDE [facility] Care Team Providers Care Showroom Executive Director Name Role Phone ZMEILI Unavailable Unavailable Dy, Bertrand Unavailable Unavailable Dy, Bertrand Unavailable Unavailable SARAH ROB Unavailable Unavailable IMCA Unavailable Unavailable MAYANK, KEVIN Unavailable Unavailable MAYANK, KEVIN Unavailable Unavailable ESMER PILLAI Unavailable Unavailable Esmer Pillai (Fabrication Specialist.Vehicle Body Sander) Primary Care Pr ovider Soo Montesinos Primary [...] Penicillins Drug Allergy 6 Other: See Comments [facility] (3 sources) Penicillins; Translations: [PENICILLINS] Propensity to adverse reactions (disorder) 6 Other: See Comments [facility] Repository Medications Completed/Discontinued Medications Medication Drug [...] 06-09-2016 Chronic Other aftercare (2 sources) 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, [address] Absolute Neut 6.1 X10 3/uL Normal 2.0-7.7 [facility] Comment on above: Performed By: #### L 400.0001, M100.2200, L500.4050, L100.0500 #### [facility] [address] [place], [address] Basophils/100 WBC (Bld) 0.5 % Normal 0-1 [facility] Comment on above: Performed By: #### L 400.0001, M100.2200, L500.4050, L100.0500 #### [facility] [address] [place], [address] Eosinophils/100 WBC (Bld) 2.3 % Normal 0-5 [facility] Comment on above: Performed By: #### L 400.0001, M100.2200, L500.4050, L100.0500 #### [facility] [address] [place], [address] Erythrocyte distribution width (RBC) [Ratio] 12.9 % Normal 11.6-14.6 [facility] Comment on above: Performed By: #### L 400.0001, M100.2200, L500.4050, L100.0500 #### [facility] [address] [place], [address] Hematocrit (Bld) [Volume fraction] 41.3 % Normal 40-54 [facility] Comment on above: Performed By: #### L 400.0001, M100.2200, L500.4050, L100.0500 #### [facility] [address] [place], [address] Hemoglobin (Bld) [Mass/Vol] 14.1 g/dL Normal 13.0-16.5 [facility] Comment on above: Performed By: #### L 400.0001, M100.2200, L500.4050, L100.0500 #### [facility] [address] [place], [address] IG% 1.600 High 0.0-0.9 [facility] Comment on above: Result Comment: IG% - Immature Granulocytes (promyelocytes, myelocytes and metamyelocytes) > 1% indicates that a LEFT SHIFT is Present. Performed By: #### L 400.0001, M100.2200, L500.4050, L100.0500 #### [facility] [address] [place], [address] Lymphocytes/100 WBC (Bld) 22.4 % Normal 19-41 [facility] Comment on above: Performed By: #### L 400.0001, M100.2200, L500.4050, L100.0500 #### [facility] [address] [place], [address] MCH (RBC) [Entitic mass] 32.3 pg High 27.0-32.0 [facility] Comment on above: Performed By: #### L 400.0001, M100.2200, L500.4050, L100.0500 #### [facility] [address] [place], [address] MCHC (RBC) [Mass/Vol] 34.1 g/dL Normal 32-36 [facility] Comment on above: Performed By: #### L 400.0001, M100.2200, L500.4050, L100.0500 #### [facility] [address] [place], [address] MCV (RBC) [Entitic vol] 94.5 fL High 80-94 [facility] Comment on above: Performed By: #### L 400.0001, M100.2200, L500.4050, L100.0500 #### [facility] [address] [place], [address] Monocytes/100 WBC (Bld) 8.7 % Normal 0-10 [facility] Comment on above: Performed By: #### L 400.0001, M100.2200, L500.4050, L100.0500 #### [facility] [address] [place], [address] Neutrophils/100 WBC (Bld) 64.5 % Normal 47-70 [facility] Comment on above: Performed By: #### L 400.0001, M100.2200, L500.4050, L100.0500 #### [facility] [address] [place], [address] Nucleated RBC (Bld) [#/Vol] 0 10*3/uL Normal 0-5 [facility] Comment on above: Performed By: #### L 400.0001, M100.2200, L500.4050, L100.0500 #### [facility] [address] [place], [address] Platelet mean volume (Bld) [Entitic vol] 10.9 fL Normal 6.2-12.0 [facility] Comment on above: Performed By: #### L 400.0001, M100.2200, L500.4050, L100.0500 #### [facility] [address] [place], [address] Platelets (Bld) [#/Vol] 178 10*3/uL Normal 150-450 [facility] Comment on above: Performed By: #### L 400.0001, M100.2200, L500.4050, L100.0500 #### [facility] [address] [place], [address] RBC (Bld) [#/Vol] 4.37 10*6/uL Low 4.6-6.2 [facility] Comment on above: Performed By: #### L 400.0001, M100.2200, L500.4050, L100.0500 #### [facility] [address] [place], [address] RDW SD 44.4 fl High 35.1-43.9 [facility] Comment on above: Performed By: #### L 400.0001, M100.2200, L500.4050, L100.0500 #### [facility] [address] [place], [address] WBC (Bld) [#/Vol] 9.4 10*3/uL Normal 4.4-11.0 [facility] Comment on above: Performed By: #### L 400.0001, M100.2200, L500.4050, L100.0500 #### [facility] [address] [place], [address] Absolute neutrophil countOrd ered By: Lynn Zurita on 02-25-2025 Neutrophils (Bld) [#/Vol] 4.0 10*3/uL 2.0-7.7 [facility] Basophil percentageOrdered B y: Lynn Zurita on 02-25-2025 Basophils/100 WBC (Bld) 0.9 % 0-1 [facility] CBC W/Diff, Automatedon 04- Absolute Lymph 1.82 X10 3/uL Normal 0.83-4.51 [facility] Comment on above: Order Comment: 101 Performed By: #### L 400.0001, M100.2200, L500.4050, L100.0500 #### [facility] [address] [place], [address] Absolute Neut 4.0 X10 3/uL Normal 2.0-7.7 [facility] Comment on above: Order Comment: 101 Performed By: #### L 400.0001, M100.2200, L500.4050, L100.0500 #### [facility] [address] [place], [address] Basophils/100 WBC (Bld) 0.9 % Normal 0-1 [facility] Comment on above: Order Comment: 101 Performed By: #### L 400.0001, M100.2200, L500.4050, L100.0500 #### [facility] [address] [place], [address] Eosinophils/100 WBC (Bld) 3.0 % Normal 0-5 [facility] Comment on above: Order Comment: 101 Performed By: #### L 400.0001, M100.2200, L500.4050, L100.0500 #### [facility] [address] [place], [address] Erythrocyte distribution width (RBC) [Ratio] 13.1 % Normal 11.6-14.6 [facility] Comment on above: Order Comment: 101 Performed By: #### L 400.0001, M100.2200, L500.4050, L100.0500 #### [facility] [address] [place], [address] Hematocrit (Bld) [Volume fraction] 39.0 % Low 40-54 [facility] Comment on above: Order Comment: 101 Performed By: #### L 400.0001, M100.2200, L500.4050, L100.0500 #### [facility] [address] [place], [address] Hemoglobin (Bld) [Mass/Vol] 13.7 g/dL Normal 13.0-16.5 [facility] Comment on above: Order Comment: 101 Performed By: #### L 400.0001, M100.2200, L500.4050, L100.0500 #### [facility] [address] [place], [address] IG% 1.400 High 0.0-0.9 [facility] Comment on above: Order Comment: 101 Result Comment: IG% - Immature Granulocytes (promyelocytes, myelocytes and metamyelocytes) > 1% indicates that a LEFT SHIFT is Present. Performed By: #### L 400.0001, M100.2200, L500.4050, L100.0500 #### [facility] [address] [place], [address] Lymphocytes/100 WBC (Bld) 27.3 % Normal 19-41 [facility] Comment on above: Order Comment: 101 Performed By: #### L 400.0001, M100.2200, L500.4050, L100.0500 #### [facility] [address] [place], [address] MCH (RBC) [Entitic mass] 32.4 pg High 27.0-32.0 [facility] Comment on above: Order Comment: 101 Performed By: #### L 400.0001, M100.2200, L500.4050, L100.0500 #### [facility] [address] [place], [address] MCHC (RBC) [Mass/Vol] 35.1 g/dL Normal 32-36 [facility] Comment on above: Order Comment: 101 Performed By: #### L 400.0001, M100.2200, L500.4050, L100.0500 #### [facility] [address] [place], [address] MCV (RBC) [Entitic vol] 92.2 fL Normal 80-94 [facility] Comment on above: Order Comment: 101 Performed By: #### L 400.0001, M100.2200, L500.4050, L100.0500 #### [facility] [address] [place], [address] Monocytes/100 WBC (Bld) 8.1 % Normal 0-10 [facility] Comment on above: Order Comment: 101 Performed By: #### L 400.0001, M100.2200, L500.4050, L100.0500 #### [facility] [address] [place], [address] Neutrophils/100 WBC (Bld) 59.3 % Normal 47-70 [facility] Comment on above: Order Comment: 101 Performed By: #### L 400.0001, M100.2200, L500.4050, L100.0500 #### [facility] [address] [place], [address] Nucleated RBC (Bld) [#/Vol] 0 10*3/uL Normal 0-5 [facility] Comment on above: Order Comment: 101 Performed By: #### L 400.0001, M100.2200, L500.4050, L100.0500 #### [facility] [address] [place], [address] Platelet mean volume (Bld) [Entitic vol] 10.7 fL Normal 6.2-12.0 [facility] Comment on above: Order Comment: 101 Performed By: #### L 400.0001, M100.2200, L500.4050, L100.0500 #### [facility] [address] [place], [address] Platelets (Bld) [#/Vol] 165 10*3/uL Normal 150-450 [facility] Comment on above: Order Comment: 101 Performed By: #### L 400.0001, M100.2200, L500.4050, L100.0500 #### [facility] [address] [place], [address] RBC (Bld) [#/Vol] 4.23 10*6/uL Low 4.6-6.2 [facility] Comment on above: Order Comment: 101 Performed By: #### L 400.0001, M100.2200, L500.4050, L100.0500 #### [facility] [address] [place], [address] RDW SD 44.2 fl High 35.1-43.9 [facility] Comment on above: Order Comment: 101 Performed By: #### L 400.0001, M100.2200, L500.4050, L100.0500 #### [facility] [address] [place], [address] WBC (Bld) [#/Vol] 6.7 10*3/uL Normal 4.4-11.0 [facility] Comment on above: Order Comment: 101 Performed By: #### L 400.0001, M100.2200, L500.4050, L100.0500 #### [facility] [address] [place], [address] Eosinophil percentageOrdered By: Lynn Zurita on 02-25-2025 Eosinophils/100 WBC (Bld) 3.0 % 0-5 [facility] Erythrocyte distribution wid th (RBC) [Ratio]Ordered By: Lynn Zurita on 02-25-2025 Erythrocyte distribution width (RBC) [Entitic vol] 44.2 fL High 35.1-43.9 [facility] Erythrocyte distribution wid th ratioOrdered By: Lynn Zurita on 02-25-2025 Erythrocyte distribution width (RBC) [Ratio] 13.1 % 11.6-14.6 [facility] Hematocrit Auto (Bld) [Volum e fraction]Ordered By: Lynn Zurita on 02-25-2025 Hematocrit (Bld) [Volume fraction] 39.0 % Low 40-54 [facility] Hemoglobin measurementOrdere d By: Lynn Zurita on 02-25-2025 Hemoglobin (Bld) [Mass/Vol] 13.7 g/dL 13.0-16.5 [facility] Immature granulocytes/100 WB C Auto (Bld)Ordered By: Lynn Zurita on 04-22-2025 Immature granulocytes/100 WBC (Bld) 1.400 % High 0.0-0.9 [facility] Comment on above: IG% - Immature Granu locytes (promyelocytes, myelocytes and metamyelocytes) > 1% indicates that a LEFT SHIFT is Present. Lymphocytes Auto (Unsp spec) [#/Vol]Ordered By: Lynn Zurita on 02-25-2025 Lymphocytes (Bld) [#/Vol] 1.82 10*3/uL 0.83-4.51 [facility] Lymphocytes/100 WBC Auto (Un sp spec)Ordered By: Lynn Zurita on 02-25-2025 Lymphocytes/100 WBC (Bld) 27.3 % 19-41 [facility] MCV (mean corpuscular volume ) determinationOrdered By: Lynn Zurita on 02-25-2025 MCV (RBC) [Entitic vol] 92.2 fL 80-94 [facility] Mean corpuscular hemoglobin (MCH) determinationOrdered By: Lynn Zurita on 02-25-2025 MCH (RBC) [Entitic mass] 32.4 pg High 27.0-32.0 [facility] Mean corpuscular hemoglobin concentration (MCHC) determinationOrdered By: Lynn Zurita on 02-25-2025 MCHC (RBC) [Mass/Vol] 35.1 g/dL 32-36 [facility] Mean platelet volume determi nationOrdered By: Lynn Zurita on 02-25-2025 Platelet mean volume (Bld) [Entitic vol] 10.7 fL 6.2-12.0 [facility] Monocyte percentageOrdered B y: Lynn Zurita on 02-25-2025 Monocytes/100 WBC (Bld) 8.1 % 0-10 [facility] Neutrophil percentageOrdered By: Lynn Zurita on 02-25-2025 Neutrophils/100 WBC (Bld) 59.3 % 47-70 [facility] Nucleated red blood cell per centageOrdered By: Lynn Zurita on 02-25-2025 Nucleated RBC/100 WBC (Bld) [Ratio] 0 % 0-5 [facility] Platelet countOrdered By: Radames Zurita on 02-25-2025 Platelets (Bld) [#/Vol] 165 10*3/uL 150-450 [facility] RBC Auto (Bld) [#/Vol]Ordere d By: Lynn Zurita on 02-25-2025 RBC (Bld) [#/Vol] 4.23 10*6/uL Low 4.6-6.2 [facility] White blood cell (WBC) count Ordered By: Lynn Zurita on 02-25-2025 WBC (Bld) [#/Vol] 6.7 10*3/uL 4.4-11.0 [facility] Anion gap in Serum or Plasma Ordered By: Lynn Zurita on 02-14-2025 Anion gap [Moles/Vol] 14 mmol/L 03-20 [facility] BUN/creatinine ratioOrdered By: Lynn Zurita on 02-14-2025 Urea nitrogen/Creatinine [Mass ratio] 17.5 mg/mg 08-25 [facility] Basic Metabolic Profile (BMP )on 02-14-2025 BUN/CRE 17.5 RATIO Normal 08-25 [facility] Comment on above: Order Comment: 101 Performed By: #### L 400.0001, M100.2200, L500.4050, L100.0500 #### [facility] [address] [place], [address] Calcium [Mass/Vol] 9.1 mg/dL Normal 7.6-11.0 [facility] Comment on above: Order Comment: 101 Performed By: #### L 400.0001, M100.2200, L500.4050, L100.0500 #### [facility] [address] [place], [address] Chloride [Moles/Vol] 107 mmol/L Normal 98-108 [facility] Comment on above: Order Comment: 101 Performed By: #### L 400.0001, M100.2200, L500.4050, L100.0500 #### [facility] [address] [place], [address] CO2 [Moles/Vol] 20.5 mmol/L Low 21.0-32.0 [facility] Comment on above: Order Comment: 101 Performed By: #### L 400.0001, M100.2200, L500.4050, L100.0500 #### [facility] [address] [place], [address] Creatinine [Mass/Vol] 0.92 mg/dL Normal 0.70-1.20 [facility] Comment on above: Order Comment: 101 Performed By: #### L 400.0001, M100.2200, L500.4050, L100.0500 #### [facility] [address] [place], [address] GAP 14 Normal 5-15 [facility] Comment on above: Order Comment: 101 Performed By: #### L 400.0001, M100.2200, L500.4050, L100.0500 #### [facility] [address] [place], [address] GFR/1.73 sq M.predicted among non-blacks MDRD (S/P/Bld) [Vol rate/Area] 90 mL/min/{1.73_m2} Normal >60 [facility] Comment on above: Order Comment: 101 Result Comment: mL/m in/1.73m2 CKD-EPI Creatinine Equation (2020) Performed By: #### L 400.0001, M100.2200, L500.4050, L100.0500 #### [facility] [address] [place], [address] Glucose [Mass/Vol] 166 mg/dL High 70-99 [facility] Comment on above: Order Comment: 101 Performed By: #### L 400.0001, M100.2200, L500.4050, L100.0500 #### [facility] [address] [place], [address] Potassium [Moles/Vol] 4.2 mmol/L Normal 3.3-5.1 [facility] Comment on above: Order Comment: 101 Performed By: #### L 400.0001, M100.2200, L500.4050, L100.0500 #### [facility] [address] [place], [address] Sodium [Moles/Vol] 141 mmol/L Normal 133-145 [facility] Comment on above: Order Comment: 101 Performed By: #### L 400.0001, M100.2200, L500.4050, L100.0500 #### [facility] [address] [place], [address] Urea nitrogen [Mass/Vol] 16 mg/dL Normal 4-19 [facility] Comment on above: Order Comment: 101 Performed By: #### L 400.0001, M100.2200, L500.4050, L100.0500 #### [facility] [address] [place], [address] Carbon dioxide, total [Moles /volume] in Central venous bloodOrdered By: Lynn Zurita on 02-14-2025 CO2 [Moles/Vol] 20.5 mmol/L Low 21.0-32.0 [facility] Chloride assayOrdered By: Radames Zurita on 02-14-2025 Chloride [Moles/Vol] 107 mmol/L 98-108 [facility] GFR/1.73 sq M.predicted tyra g non-blacks MDRD (S/P/Bld) [Vol rate/Area]Ordered By: Lynn Zurita on 02-14-2025 Estimated GFR (MDRD) Non-Af Amer 90 >60 [facility] Comment on above: mL/min/1.73m2 CKD-EP I Creatinine Equation (2020) Hemoglobin A1con 02-14-2025 HbA1c (Bld) [Mass fraction] 7.0 % High <=5.6 [facility] Comment on above: Order Comment: 101 Result Comment: Norm al < 5.7 % Prediabetic 5.7 - 6.4 % Diabetic >or= 6.5 % Please note range changes. Performed By: #### L 400.0001, M100.2200, L500.4050, L100.0500 #### [facility] [address] [place], [address] Hemoglobin A1c percentageOrd ered By: Lynn Zurita on 02-14-2025 HbA1c (Bld) [Mass fraction] 7.0 % High <5.7 [facility] Comment on above: Normal < 5.7 % Predi abetic 5.7 - 6.4 % Diabetic >or= 6.5 % Please note range changes. Potassium (Unsp spec) [Mass/ Vol]Ordered By: Lynn Zurita on 02-14-2025 Potassium [Moles/Vol] 4.2 mmol/L 3.3-5.1 [facility] Serum creatinine measurement (mass/volume)Ordered By: Lynn Zurita on 02-14-2025 Creatinine [Mass/Vol] 0.92 mg/dL 0.70-1.20 [facility] Serum glucose measurement (m ass/volume)Ordered By: Lynn Zurita on 02-14-2025 Glucose [Mass/Vol] 166 mg/dL High 70-99 [facility] Serum or plasma calcium federico urement (mass/volume)Ordered By: Lynn Zurita on 02-14-2025 Calcium [Mass/Vol] 9.1 mg/dL 7.6-11.0 [facility] Serum or plasma urea nitroge n measurement (mass/volume)Ordered By: Lynn Zurita on 02-14-2025 Urea nitrogen [Mass/Vol] 16 mg/dL 4-19 [facility] Sodium levelOrdered By: Moshe Zurita on 02-14-2025 Sodium [Moles/Vol] 141 mmol/L 133-145 [facility] Urine Cultureon 02-07-2025 URC Below infection leve l. Mixed Gram Positive Organisms [place] Count <1000 [facility] Mixed contaminants. Submit a new specimen if indicated. Normal [facility] Comment on above: Performed By: #### L 400.0001, M100.2200, L500.4050, L100.0500 #### [facility] [address] [place], [address] Anion gap in Serum or Plasma Ordered By: Lynn Zurita on 02-06-2025 Anion gap [Moles/Vol] 17 mmol/L High 5-15 [facility] BUN/creatinine ratioOrdered By: Lynn Zurita on 02-06-2025 Urea nitrogen/Creatinine [Mass ratio] 23.0 mg/mg High 10-20 [facility] Bilirubin, totalOrdered By: Lynn Zurita on 02-06-2025 Bilirubin [Mass/Vol] 0.35 mg/dL 0.00-1.30 [facility] CBC-Complete Blood Cnt No Di ffon 02-06-2025 Erythrocyte distribution width (RBC) [Ratio] 13.2 % Normal 11.6-14.6 [facility] Comment on above: Order Comment: CLEAN CATCH Performed By: #### L 400.0001, M100.2200, L500.4050, L100.0500 #### [facility] [address] [place], [address] Hematocrit (Bld) [Volume fraction] 40.0 % Normal 40-54 [facility] Comment on above: Order Comment: CLEAN CATCH Performed By: #### L 400.0001, M100.2200, L500.4050, L100.0500 #### [facility] [address] [place], [address] Hemoglobin (Bld) [Mass/Vol] 13.7 g/dL Normal 13.0-16.5 [facility] Comment on above: Order Comment: CLEAN CATCH Performed By: #### L 400.0001, M100.2200, L500.4050, L100.0500 #### [facility] [address] [place], [address] MCH (RBC) [Entitic mass] 32.4 pg High 27.0-32.0 [facility] Comment on above: Order Comment: CLEAN CATCH Performed By: #### L 400.0001, M100.2200, L500.4050, L100.0500 #### [facility] [address] [place], [address] MCHC (RBC) [Mass/Vol] 34.3 g/dL Normal 32-36 [facility] Comment on above: Order Comment: CLEAN CATCH Performed By: #### L 400.0001, M100.2200, L500.4050, L100.0500 #### [facility] [address] [place], [address] MCV (RBC) [Entitic vol] 94.6 fL High 80-94 [facility] Comment on above: Order Comment: CLEAN CATCH Performed By: #### L 400.0001, M100.2200, L500.4050, L100.0500 #### [facility] [address] [place], [address] Platelet mean volume (Bld) [Entitic vol] 11.0 fL Normal 6.2-12.0 [facility] Comment on above: Order Comment: CLEAN CATCH Performed By: #### L 400.0001, M100.2200, L500.4050, L100.0500 #### [facility] [address] [place], [address] Platelets (Bld) [#/Vol] 180 10*3/uL Normal 150-450 [facility] Comment on above: Order Comment: CLEAN CATCH Performed By: #### L 400.0001, M100.2200, L500.4050, L100.0500 #### [facility] [address] [place], [address] RBC (Bld) [#/Vol] 4.23 10*6/uL Low 4.6-6.2 [facility] Comment on above: Order Comment: CLEAN CATCH Performed By: #### L 400.0001, M100.2200, L500.4050, L100.0500 #### [facility] [address] [place], [address] RDW SD 45.1 fl High 35.1-43.9 [facility] Comment on above: Order Comment: CLEAN CATCH Performed By: #### L 400.0001, M100.2200, L500.4050, L100.0500 #### [facility] [address] [place], [address] WBC (Bld) [#/Vol] 8.3 10*3/uL Normal 4.4-11.0 [facility] Comment on above: Order Comment: CLEAN CATCH Performed By: #### L 400.0001, M100.2200, L500.4050, L100.0500 #### [facility] [address] [place], [place] [address] Carbon dioxide, total [Moles /volume] in Central venous bloodOrdered By: Lynn Zurita on 02-06-2025 CO2 [Moles/Vol] 18.2 mmol/L Low 21.0-32.0 [facility] Chloride assayOrdered By: Radames Zurita on 02-06-2025 Chloride [Moles/Vol] 107 mmol/L 98-108 [facility] Comprehensive Metabolic Prof ilon 02-06-2025 Albumin [Mass/Vol] 4.3 g/dL Normal 3.4-4.8 [facility] Comment on above: Order Comment: CLEAN CATCH Performed By: #### L 400.0001, M100.2200, L500.4050, L100.0500 #### [facility] [address] [place], [address] Albumin/Globulin [Mass ratio] 1.6 {ratio} Normal 0.9-2.4 [facility] Comment on above: Order Comment: CLEAN CATCH Performed By: #### L 400.0001, M100.2200, L500.4050, L100.0500 #### [facility] [address] [place], [address] ALK PHOS 80 U/L Normal 40-129 [facility] Comment on above: Order Comment: CLEAN CATCH Performed By: #### L 400.0001, M100.2200, L500.4050, L100.0500 #### [facility] [address] [place], [address] ALT [Catalytic activity/Vol] 43 U/L Normal <=46 [facility] Comment on above: Order Comment: CLEAN CATCH Performed By: #### L 400.0001, M100.2200, L500.4050, L100.0500 #### [facility] [address] [place], [address] AST [Catalytic activity/Vol] 33 U/L Normal <=37 [facility] Comment on above: Order Comment: CLEAN CATCH Performed By: #### L 400.0001, M100.2200, L500.4050, L100.0500 #### [facility] [address] [place], [address] Bilirubin [Mass/Vol] 0.35 mg/dL Normal 0.00-1.30 [facility] Comment on above: Order Comment: CLEAN CATCH Performed By: #### L 400.0001, M100.2200, L500.4050, L100.0500 #### [facility] [address] [place], [address] BUN/CRE 23.0 RATIO High 10-20 [facility] Comment on above: Order Comment: CLEAN CATCH Performed By: #### L 400.0001, M100.2200, L500.4050, L100.0500 #### [facility] [address] [place], [address] Calcium [Mass/Vol] 8.8 mg/dL Normal 7.6-11.0 [facility] Comment on above: Order Comment: CLEAN CATCH Performed By: #### L 400.0001, M100.2200, L500.4050, L100.0500 #### [facility] [address] [place], [address] Chloride [Moles/Vol] 107 mmol/L Normal 98-108 [facility] Comment on above: Order Comment: CLEAN CATCH Performed By: #### L 400.0001, M100.2200, L500.4050, L100.0500 #### [facility] [address] [place], [address] CO2 [Moles/Vol] 18.2 mmol/L Low 21.0-32.0 [facility] Comment on above: Order Comment: CLEAN CATCH Performed By: #### L 400.0001, M100.2200, L500.4050, L100.0500 #### [facility] [address] [place], [address] Creatinine [Mass/Vol] 1.51 mg/dL High 0.70-1.20 [facility] Comment on above: Order Comment: CLEAN CATCH Performed By: #### L 400.0001, M100.2200, L500.4050, L100.0500 #### [facility] [address] [place], [address] GAP 17 High 5-15 [facility] Comment on above: Order Comment: CLEAN CATCH Performed By: #### L 400.0001, M100.2200, L500.4050, L100.0500 #### [facility] [address] [place], [address] GFR/1.73 sq M.predicted among non-blacks MDRD (S/P/Bld) [Vol rate/Area] 50 mL/min/{1.73_m2} Low >60 [facility] Comment on above: Order Comment: CLEAN CATCH Result Comment: mL/m in/1.73m2 CKD-EPI Creatinine Equation (2020) Performed By: #### L 400.0001, M100.2200, L500.4050, L100.0500 #### [facility] [address] [place], [address] Globulin (S) [Mass/Vol] 2.7 g/dL Normal 2.2-4.2 [facility] Comment on above: Order Comment: CLEAN CATCH Performed By: #### L 400.0001, M100.2200, L500.4050, L100.0500 #### [facility] [address] [place], [address] Glucose [Mass/Vol] 146 mg/dL High 70-99 [facility] Comment on above: Order Comment: CLEAN CATCH Performed By: #### L 400.0001, M100.2200, L500.4050, L100.0500 #### [facility] [address] [place], [address] Potassium [Moles/Vol] 4.2 mmol/L Normal 3.3-5.1 [facility] Comment on above: Order Comment: CLEAN CATCH Performed By: #### L 400.0001, M100.2200, L500.4050, L100.0500 #### [facility] [address] [place], [address] Sodium [Moles/Vol] 142 mmol/L Normal 133-145 [facility] Comment on above: Order Comment: CLEAN CATCH Performed By: #### L 400.0001, M100.2200, L500.4050, L100.0500 #### [facility] [address] [place], [address] T PROT 6.9 g/dL Normal 5.9-8.4 [facility] Comment on above: Order Comment: CLEAN CATCH Performed By: #### L 400.0001, M100.2200, L500.4050, L100.0500 #### [facility] [address] [place], [address] Urea nitrogen [Mass/Vol] 35 mg/dL High 4-19 [facility] Comment on above: Order Comment: CLEAN CATCH Performed By: #### L 400.0001, M100.2200, L500.4050, L100.0500 #### [facility] [address] [place], [address] Erythrocyte distribution wid th (RBC) [Ratio]Ordered By: Lynn Zurita on 02-06-2025 Erythrocyte distribution width (RBC) [Entitic vol] 45.1 fL High 35.1-43.9 [facility] Erythrocyte distribution wid th ratioOrdered By: Lynn Zurita on 02-06-2025 Erythrocyte distribution width (RBC) [Ratio] 13.2 % 11.6-14.6 [facility] GFR/1.73 sq M.predicted tyra g non-blacks MDRD (S/P/Bld) [Vol rate/Area]Ordered By: Lynn Zurita on 02-06-2025 Estimated GFR (MDRD) Non-Af Amer 50 Low >60 [facility] Comment on above: mL/min/1.73m2 CKD-EP I Creatinine Equation (2020) Hematocrit Auto (Bld) [Volum e fraction]Ordered By: Lynn Zurita on 02-06-2025 Hematocrit (Bld) [Volume fraction] 40.0 % 40-54 [facility] Hemoglobin measurementOrdere d By: Lynn Zurita on 02-06-2025 Hemoglobin (Bld) [Mass/Vol] 13.7 g/dL 13.0-16.5 [facility] - Chemistry and C hemistry - challengeOrdered By: Lynn Zurita on 02-06-2025 AST [Catalytic activity/Vol] 33 U/L <38 [facility] MCV (mean corpuscular volume ) determinationOrdered By: Lynn Zurita on 02-06-2025 MCV (RBC) [Entitic vol] 94.6 fL High 80-94 [facility] Mean corpuscular hemoglobin (MCH) determinationOrdered By: Lynn Zurita on 02-06-2025 MCH (RBC) [Entitic mass] 32.4 pg High 27.0-32.0 [facility] Mean corpuscular hemoglobin concentration (MCHC) determinationOrdered By: Lynn Zurita on 02-06-2025 MCHC (RBC) [Mass/Vol] 34.3 g/dL 32-36 [facility] Mean platelet volume determi nationOrdered By: Lynn Zurita on 02-06-2025 Platelet mean volume (Bld) [Entitic vol] 11.0 fL 6.2-12.0 [facility] Platelet countOrdered By: Radames Zurita on 02-06-2025 Platelets (Bld) [#/Vol] 180 10*3/uL 150-450 [facility] Potassium (Unsp spec) [Mass/ Vol]Ordered By: Lynn Zurita on 02-06-2025 Potassium [Moles/Vol] 4.2 mmol/L 3.3-5.1 [facility] RBC Auto (Bld) [#/Vol]Ordere d By: Lynn Zurita on 02-06-2025 RBC (Bld) [#/Vol] 4.23 10*6/uL Low 4.6-6.2 [facility] Serum creatinine measurement (mass/volume)Ordered By: Lynn Zurita on 02-06-2025 Creatinine [Mass/Vol] 1.51 mg/dL High 0.70-1.20 [facility] Serum globulin measurementOr dered By: Lynn Zurita on 02-06-2025 Globulin (S) [Mass/Vol] 2.7 g/dL 2.2-4.2 [facility] Serum glucose measurement (m ass/volume)Ordered By: Lynn Zurita on 02-06-2025 Glucose [Mass/Vol] 146 mg/dL High 70-99 [facility] Serum or plasma alanine yi otransferase (ALT) measurementOrdered By: Lynn Zurita on 02-06-2025 ALT [Catalytic activity/Vol] 43 U/L <47 [facility] Serum or plasma albumin federico urement (mass/volume)Ordered By: Lynn Zurita on 02-06-2025 Albumin [Mass/Vol] 4.3 g/dL 3.4-4.8 [facility] Serum or plasma albumin/glob ulin mass ratioOrdered By: Lynn Zurita on 02-06-2025 Albumin/Globulin [Mass ratio] 1.6 {ratio} 0.9-2.4 [facility] Serum or plasma alkaline ester sphatase measurementOrdered By: Lynn Zurita on 02-06-2025 ALP [Catalytic activity/Vol] 80 U/L 40-129 [facility] Serum or plasma calcium federico urement (mass/volume)Ordered By: Lynn Zurita on 02-06-2025 Calcium [Mass/Vol] 8.8 mg/dL 7.6-11.0 [facility] Serum or plasma urea nitroge n measurement (mass/volume)Ordered By: Lynn Zurita on 02-06-2025 Urea nitrogen [Mass/Vol] 35 mg/dL High 4-19 [facility] Sodium levelOrdered By: Msohe Zurita on 02-06-2025 Sodium [Moles/Vol] 142 mmol/L 133-145 [facility] Total proteinOrdered By: Nano Zurtia on 02-06-2025 Protein [Mass/Vol] 6.9 g/dL 5.9-8.4 [facility] White blood cell (WBC) count Ordered By: Lynn Zurita on 02-06-2025 WBC (Bld) [#/Vol] 8.3 10*3/uL 4.4-11.0 [facility] CBC-Complete Blood Cnt No Di ffon 02-05-2025 HCT Normal 40-54 [facility] Comment on above: Order Comment: 101 Result Comment: UTO X2 Performed By: #### L 400.0001, M100.2200, L500.4050, L100.0500 #### [facility] [address] [place], [address] HGB Normal 13.0-16.5 [facility] Comment on above: Order Comment: 101 Result Comment: UTO X2 Performed By: #### L 400.0001, M100.2200, L500.4050, L100.0500 #### [facility] [address] [place], [address] MCH Normal 27.0-32.0 [facility] Comment on above: Order Comment: 101 Result Comment: UTO X2 Performed By: #### L 400.0001, M100.2200, L500.4050, L100.0500 #### [facility] [address] [place], [address] MCHC Normal 32-36 [facility] Comment on above: Order Comment: 101 Result Comment: UTO X2 Performed By: #### L 400.0001, M100.2200, L500.4050, L100.0500 #### [facility] [address] [place], [address] MCV Normal 80-94 [facility] Comment on above: Order Comment: 101 Result Comment: UTO X2 Performed By: #### L 400.0001, M100.2200, L500.4050, L100.0500 #### [facility] [address] [place], [address] PLT Normal 150-450 [facility] Comment on above: Order Comment: 101 Result Comment: UTO X2 Performed By: #### L 400.0001, M100.2200, L500.4050, L100.0500 #### [facility] [address] [place], [address] RBC Normal 4.6-6.2 [facility] Comment on above: Order Comment: 101 Result Comment: UTO X2 Performed By: #### L 400.0001, M100.2200, L500.4050, L100.0500 #### [facility] [address] [place], [address] RDW CV Normal 11.6-14.6 [facility] Comment on above: Order Comment: 101 Result Comment: UTO X2 Performed By: #### L 400.0001, M100.2200, L500.4050, L100.0500 #### [facility] [address] [place], [address] RDW SD Normal 35.1-43.9 [facility] Comment on above: Order Comment: 101 Result Comment: UTO X2 Performed By: #### L 400.0001, M100.2200, L500.4050, L100.0500 #### [facility] [address] [place], [address] WBC Normal 4.4-11.0 [facility] Comment on above: Order Comment: 101 Result Comment: UTO X2 Performed By: #### L 400.0001, M100.2200, L500.4050, L100.0500 #### [facility] [address] [place], [address] Comprehensive Metabolic Prof ilon 02-05-2025 ALB Normal 3.4-4.8 [facility] Comment on above: Order Comment: 101 Result Comment: UTO X2 Performed By: #### L 400.0001, M100.2200, L500.4050, L100.0500 #### [facility] [address] [place], [address] ALK PHOS Normal 40-129 [facility] Comment on above: Order Comment: 101 Result Comment: UTO X2 Performed By: #### L 400.0001, M100.2200, L500.4050, L100.0500 #### [facility] [address] [place], [address] ALT Normal <=46 [facility] Comment on above: Order Comment: 101 Result Comment: UTO X2 Performed By: #### L 400.0001, M100.2200, L500.4050, L100.0500 #### [facility] [address] [place], [address] AST Normal <=37 [facility] Comment on above: Order Comment: 101 Result Comment: UTO X2 Performed By: #### L 400.0001, M100.2200, L500.4050, L100.0500 #### [facility] [address] [place], [address] BUN Normal 4-19 [facility] Comment on above: Order Comment: 101 Result Comment: UTO X2 Performed By: #### L 400.0001, M100.2200, L500.4050, L100.0500 #### [facility] [address] [place], [address] BUN/CRE Normal 10-20 [facility] Comment on above: Order Comment: 101 Result Comment: UTO X2 Performed By: #### L 400.0001, M100.2200, L500.4050, L100.0500 #### [facility] [address] [place], [address] Calcium Normal 7.6-11.0 [facility] Comment on above: Order Comment: 101 Result Comment: UTO X2 Performed By: #### L 400.0001, M100.2200, L500.4050, L100.0500 #### [facility] [address] [place], [address] CL Normal 98-108 [facility] Comment on above: Order Comment: 101 Result Comment: UTO X2 Performed By: #### L 400.0001, M100.2200, L500.4050, L100.0500 #### [facility] [address] [place], [address] CO2 Normal 21.0-32.0 [facility] Comment on above: Order Comment: 101 Result Comment: UTO X2 Performed By: #### L 400.0001, M100.2200, L500.4050, L100.0500 #### [facility] [address] [place], [address] CREAT,SERUM Normal 0.70-1.20 [facility] Comment on above: Order Comment: 101 Result Comment: UTO X2 Performed By: #### L 400.0001, M100.2200, L500.4050, L100.0500 #### [facility] [address] [place], [address] eGFR Normal >60 [facility] Comment on above: Order Comment: 101 Result Comment: UTO X2 Performed By: #### L 400.0001, M100.2200, L500.4050, L100.0500 #### [facility] [address] [place], [address] GAP Normal 5-15 [facility] Comment on above: Order Comment: 101 Result Comment: UTO X2 Performed By: #### L 400.0001, M100.2200, L500.4050, L100.0500 #### [facility] [address] [place], [address] GLU Normal 70-99 [facility] Comment on above: Order Comment: 101 Result Comment: UTO X2 Performed By: #### L 400.0001, M100.2200, L500.4050, L100.0500 #### [facility] [address] [place], [address] Potassium Normal 3.3-5.1 [facility] Comment on above: Order Comment: 101 Result Comment: UTO X2 Performed By: #### L 400.0001, M100.2200, L500.4050, L100.0500 #### [facility] [address] [place], [address] T BILI Normal 0.00-1.30 [facility] Comment on above: Order Comment: 101 Result Comment: UTO X2 Performed By: #### L 400.0001, M100.2200, L500.4050, L100.0500 #### [facility] [address] [place], [address] T PROT Normal 5.9-8.4 [facility] Comment on above: Order Comment: 101 Result Comment: UTO X2 Performed By: #### L 400.0001, M100.2200, L500.4050, L100.0500 #### [facility] [address] [place], [address] Comprehensive Metabolic Profil Normal 133-145 [facility] Comment on above: Order Comment: 101 Result Comment: UTO X2 Performed By: #### L 400.0001, M100.2200, L500.4050, L100.0500 #### [facility] [address] [place], [address] Urinalysis, Completeon 02-05 EPI,SQUAMOUS 0-5 SEEN Normal 0-5 [facility] Comment on above: Order Comment: CLEAN CATCH Performed By: #### L 400.0001, M100.2200, L500.4050, L100.0500 #### [facility] [address] [place], [address] WBC 0-5 SEEN Normal 0-5 [facility] Comment on above: Order Comment: CLEAN CATCH Performed By: #### L 400.0001, M100.2200, L500.4050, L100.0500 #### [facility] [address] [place], [address] BACTERIA 0 SEEN Normal None Seen [facility] Comment on above: Order Comment: CLEAN CATCH Performed By: #### L 400.0001, M100.2200, L500.4050, L100.0500 #### [facility] [address] [place], [address] Mucus Ql (Urine sed) 0 SEEN Normal [facility] Comment on above: Order Comment: CLEAN CATCH Performed By: #### L 400.0001, M100.2200, L500.4050, L100.0500 #### [facility] [address] [place], [address] RBC 0 SEEN Normal 0-5 [facility] Comment on above: Order Comment: CLEAN CATCH Performed By: #### L 400.0001, M100.2200, L500.4050, L100.0500 #### [facility] [address] [place], [address] Bilirubin Test strip Ql (U)O rdered By: Lynn Zurita on 02-04-2025 Bilirubin Ql (U) Negative Negative [facility] Epithelial cells.squamous LM Ql (Urine sed)Ordered By: Lynn Zurita on 02-04-2025 Epithelial cells.squamous LM.HPF (Urine sed) [#/Area] 0 /[HPF] 0-5 [facility] Glucose Ql (U)Ordered By: Radames Zurita on 02-04-2025 Glucose (U) [Mass/Vol] 100 mg/dL High Normal [facility] Ketones Test strip Ql (U)Ord ered By: Lynn Zurita on 02-04-2025 Ketones Ql (U) 15 mg/dl High Negative [facility] Microscopic analysis of urin e for red blood cells (RBC)Ordered By: Lynn Zurita on 02-04-2025 Urine RBC 0 SEEN /hpf 0-5 [facility] Mucus LM Ql (Urine sed)Order ed By: Lynn Zurita on 02-04-2025 Mucus Ql (Urine sed) 0 SEEN /hpf [facility] Nitrite Test strip Ql (U)Ord ered By: Lynn Zurita on 02-04-2025 Nitrite Ql (U) Negative Negative [facility] Protein Test strip Ql (U)Ord ered By: Lynn Zurita on 02-04-2025 Protein Ql (U) 30 mg/dl High Negative [facility] Urine blood detectionOrdered By: Lynn Zurita on 02-04-2025 Urine Occult Blood Negative Negative [facility] Urine clarityOrdered By: Nano Zurita on 02-04-2025 Clarity (U) Clear Clear [facility] Urine color determinationOrd ered By: Lynn Zurita on 02-04-2025 Color (U) Yellow Yellow [facility] Urine cultureOrdered By: Nano Zurita on 02-04-2025 Bacteria identified Cx Nom (U) Positive Abnormal [facility] Urine leukocyte esterase det ection by dipstickOrdered By: Lynn Zurita on 02-04-2025 Leukocyte esterase Test strip Ql (U) 25 /ul High Negative [facility] Urine pHOrdered By: Lynn Almanzar udla on 02-04-2025 pH (U) 6.0 [pH] 5.0 - 8.0 [facility] Urine sediment bacteria coun t by microscopy (number/high power field)Ordered By: Lynn Zurita on 02-04-2025 Bacteria LM.HPF (Urine sed) [#/Area] 0 /[HPF] None Seen [facility] Urine specific gravity measu rementOrdered By: Lynn Zurita on 02-04-2025 Specific gravity (U) [Rel density] 1.010 1.002-1.030 [facility] Urobilinogen Ql (U)Ordered B y: Lynn Zurita on 02-04-2025 Urobilinogen (U) [Mass/Vol] 1 mg/dL High Normal [facility] White blood cell countOrdere d By: Lynn Zurita on 02-04-2025 Urine WBC 0-5 SEEN /hpf 0-5 [facility] Absolute neutrophil countOrd ered By: Lynn Zurita on 01-28-2025 Neutrophils (Bld) [#/Vol] 4.9 10*3/uL 2.0-7.7 [facility] Basophil percentageOrdered B y: Lynn Zurita on 01-28-2025 Basophils/100 WBC (Bld) 0.5 % 0-1 [facility] CBC W/Diff, Automatedon 01-05 Absolute Lymph 1.71 X10 3/uL Normal 0.83-4.51 [facility] Comment on above: Order Comment: CLEAN CATCH Performed By: #### L 400.0001, M100.2200, L500.4050, L100.0500 #### [facility] [address] [place], [address] Absolute Neut 4.9 X10 3/uL Normal 2.0-7.7 [facility] Comment on above: Order Comment: CLEAN CATCH Performed By: #### L 400.0001, M100.2200, L500.4050, L100.0500 #### [facility] [address] [place], [address] Basophils/100 WBC (Bld) 0.5 % Normal 0-1 [facility] Comment on above: Order Comment: CLEAN CATCH Performed By: #### L 400.0001, M100.2200, L500.4050, L100.0500 #### [facility] [address] [place], [address] Eosinophils/100 WBC (Bld) 2.9 % Normal 0-5 [facility] Comment on above: Order Comment: CLEAN CATCH Performed By: #### L 400.0001, M100.2200, L500.4050, L100.0500 #### [facility] [address] [place], [address] Erythrocyte distribution width (RBC) [Ratio] 12.9 % Normal 11.6-14.6 [facility] Comment on above: Order Comment: CLEAN CATCH Performed By: #### L 400.0001, M100.2200, L500.4050, L100.0500 #### [facility] [address] [place], [address] Hematocrit (Bld) [Volume fraction] 41.1 % Normal 40-54 [facility] Comment on above: Order Comment: CLEAN CATCH Performed By: #### L 400.0001, M100.2200, L500.4050, L100.0500 #### [facility] [address] [place], [address] Hemoglobin (Bld) [Mass/Vol] 14.1 g/dL Normal 13.0-16.5 [facility] Comment on above: Order Comment: CLEAN CATCH Performed By: #### L 400.0001, M100.2200, L500.4050, L100.0500 #### [facility] [address] [place], [address] IG% 1.500 High 0.0-0.9 [facility] Comment on above: Order Comment: CLEAN CATCH Result Comment: IG% - Immature Granulocytes (promyelocytes, myelocytes and metamyelocytes) > 1% indicates that a LEFT SHIFT is Present. Performed By: #### L 400.0001, M100.2200, L500.4050, L100.0500 #### [facility] [address] [place], [address] Lymphocytes/100 WBC (Bld) 22.7 % Normal 19-41 [facility] Comment on above: Order Comment: CLEAN CATCH Performed By: #### L 400.0001, M100.2200, L500.4050, L100.0500 #### [facility] [address] [place], [address] MCH (RBC) [Entitic mass] 32.3 pg High 27.0-32.0 [facility] Comment on above: Order Comment: CLEAN CATCH Performed By: #### L 400.0001, M100.2200, L500.4050, L100.0500 #### [facility] [address] [place], [address] MCHC (RBC) [Mass/Vol] 34.3 g/dL Normal 32-36 [facility] Comment on above: Order Comment: CLEAN CATCH Performed By: #### L 400.0001, M100.2200, L500.4050, L100.0500 #### [facility] [address] [place], [address] MCV (RBC) [Entitic vol] 94.1 fL High 80-94 [facility] Comment on above: Order Comment: CLEAN CATCH Performed By: #### L 400.0001, M100.2200, L500.4050, L100.0500 #### [facility] [address] [place], [address] Monocytes/100 WBC (Bld) 7.7 % Normal 0-10 [facility] Comment on above: Order Comment: CLEAN CATCH Performed By: #### L 400.0001, M100.2200, L500.4050, L100.0500 #### [facility] [address] [place], [address] Neutrophils/100 WBC (Bld) 64.7 % Normal 47-70 [facility] Comment on above: Order Comment: CLEAN CATCH Performed By: #### L 400.0001, M100.2200, L500.4050, L100.0500 #### [facility] [address] [place], [address] Nucleated RBC (Bld) [#/Vol] 0 10*3/uL Normal 0-5 [facility] Comment on above: Order Comment: CLEAN CATCH Performed By: #### L 400.0001, M100.2200, L500.4050, L100.0500 #### [facility] [address] [place], [address] Platelet mean volume (Bld) [Entitic vol] 10.9 fL Normal 6.2-12.0 [facility] Comment on above: Order Comment: CLEAN CATCH Performed By: #### L 400.0001, M100.2200, L500.4050, L100.0500 #### [facility] [address] [place], [address] Platelets (Bld) [#/Vol] 192 10*3/uL Normal 150-450 [facility] Comment on above: Order Comment: CLEAN CATCH Performed By: #### L 400.0001, M100.2200, L500.4050, L100.0500 #### [facility] [address] [place], [address] RBC (Bld) [#/Vol] 4.37 10*6/uL Low 4.6-6.2 [facility] Comment on above: Order Comment: CLEAN CATCH Performed By: #### L 400.0001, M100.2200, L500.4050, L100.0500 #### [facility] [address] [place], [address] RDW SD 44.0 fl High 35.1-43.9 [facility] Comment on above: Order Comment: CLEAN CATCH Performed By: #### L 400.0001, M100.2200, L500.4050, L100.0500 #### [facility] [address] [place], [address] WBC (Bld) [#/Vol] 7.5 10*3/uL Normal 4.4-11.0 [facility] Comment on above: Order Comment: CLEAN CATCH Performed By: #### L 400.0001, M100.2200, L500.4050, L100.0500 #### [facility] [address] [place], [address] Eosinophil percentageOrdered By: Lynn Zurita on 01-28-2025 Eosinophils/100 WBC (Bld) 2.9 % 0-5 [facility] Erythrocyte distribution wid th (RBC) [Ratio]Ordered By: Lynn Zurita on 01-28-2025 Erythrocyte distribution width (RBC) [Entitic vol] 44.0 fL High 35.1-43.9 [facility] Erythrocyte distribution wid th ratioOrdered By: Lynn Zurita on 01-28-2025 Erythrocyte distribution width (RBC) [Ratio] 12.9 % 11.6-14.6 [facility] Hematocrit Auto (Bld) [Volum e fraction]Ordered By: Lynn Zurita on 01-28-2025 Hematocrit (Bld) [Volume fraction] 41.1 % 40-54 [facility] Hemoglobin measurementOrdere d By: Lynn Zurita on 01-28-2025 Hemoglobin (Bld) [Mass/Vol] 14.1 g/dL 13.0-16.5 [facility] Immature granulocytes/100 WB C Auto (Bld)Ordered By: Lynn Zurita on 01-28-2025 Immature granulocytes/100 WBC (Bld) 1.500 % High 0.0-0.9 [facility] Comment on above: IG% - Immature Granu locytes (promyelocytes, myelocytes and metamyelocytes) > 1% indicates that a LEFT SHIFT is Present. Lymphocytes Auto (Unsp spec) [#/Vol]Ordered By: Lynn Zurita on 01-28-2025 Lymphocytes (Bld) [#/Vol] 1.71 10*3/uL 0.83-4.51 [facility] Lymphocytes/100 WBC Auto (Un sp spec)Ordered By: Lynn Zurita on 01-28-2025 Lymphocytes/100 WBC (Bld) 22.7 % 19-41 [facility] MCV (mean corpuscular volume ) determinationOrdered By: Lynn Zurita on 01-28-2025 MCV (RBC) [Entitic vol] 94.1 fL High 80-94 [facility] Mean corpuscular hemoglobin (MCH) determinationOrdered By: Lynn Zurita on 01-28-2025 MCH (RBC) [Entitic mass] 32.3 pg High 27.0-32.0 [facility] Mean corpuscular hemoglobin concentration (MCHC) determinationOrdered By: Lynn Zurita on 01-28-2025 MCHC (RBC) [Mass/Vol] 34.3 g/dL 32-36 [facility] Mean platelet volume determi nationOrdered By: Lynn Zurita on 01-28-2025 Platelet mean volume (Bld) [Entitic vol] 10.9 fL 6.2-12.0 [facility] Monocyte percentageOrdered B y: Lynn Zurita on 01-28-2025 Monocytes/100 WBC (Bld) 7.7 % 0-10 [facility] Neutrophil percentageOrdered By: Lynn Zurita on 01-28-2025 Neutrophils/100 WBC (Bld) 64.7 % 47-70 [facility] Nucleated red blood cell per centageOrdered By: Lynn Zurita on 01-28-2025 Nucleated RBC/100 WBC (Bld) [Ratio] 0 % 0-5 [facility] Platelet countOrdered By: Radames Zurita on 01-28-2025 Platelets (Bld) [#/Vol] 192 10*3/uL 150-450 [facility] RBC Auto (Bld) [#/Vol]Ordere d By: Lynn Zurita on 01-28-2025 RBC (Bld) [#/Vol] 4.37 10*6/uL Low 4.6-6.2 [facility] White blood cell (WBC) count Ordered By: Lynn Zurita on 01-28-2025 WBC (Bld) [#/Vol] 7.5 10*3/uL 4.4-11.0 [facility] Absolute neutrophil countOrd ered By: Lynn Zurita on 12-30-2024 Neutrophils (Bld) [#/Vol] 5.5 10*3/uL 2.0-7.7 [facility] Basophil percentageOrdered B y: Lynn Zurita on 12-30-2024 Basophils/100 WBC (Bld) 0.5 % 0-1 [facility] CBC W/Diff, Automatedon 12-08 Absolute Lymph 1.50 X10 3/uL Normal 0.83-4.51 [facility] Comment on above: Order Comment: 101 Performed By: #### L 100.0100 #### [facility] [address] [place], [address] Absolute Neut 5.5 X10 3/uL Normal 2.0-7.7 [facility] Comment on above: Order Comment: 101 Performed By: #### L 100.0100 #### [facility] [address] [place], [address] Basophils/100 WBC (Bld) 0.5 % Normal 0-1 [facility] Comment on above: Order Comment: 101 Performed By: #### L 100.0100 #### [facility] [address] [place], [address] Eosinophils/100 WBC (Bld) 2.3 % Normal 0-5 [facility] Comment on above: Order Comment: 101 Performed By: #### L 100.0100 #### [facility] [address] [place], [address] Erythrocyte distribution width (RBC) [Ratio] 13.1 % Normal 11.6-14.6 [facility] Comment on above: Order Comment: 101 Performed By: #### L 100.0100 #### [facility] [address] [place], [address] Hematocrit (Bld) [Volume fraction] 41.1 % Normal 40-54 [facility] Comment on above: Order Comment: 101 Performed By: #### L 100.0100 #### [facility] [address] [place], [address] Hemoglobin (Bld) [Mass/Vol] 13.4 g/dL Normal 13.0-16.5 [facility] Comment on above: Order Comment: 101 Performed By: #### L 100.0100 #### [facility] [address] [place], [address] IG% 1.000 High 0.0-0.9 [facility] Comment on above: Order Comment: 101 Result Comment: IG% - Immature Granulocytes (promyelocytes, myelocytes and metamyelocytes) > 1% indicates that a LEFT SHIFT is Present. Performed By: #### L 100.0100 #### [facility] [address] [place], [address] Lymphocytes/100 WBC (Bld) 19.0 % Normal 19-41 [facility] Comment on above: Order Comment: 101 Performed By: #### L 100.0100 #### [facility] [address] [place], [address] MCH (RBC) [Entitic mass] 31.3 pg Normal 27.0-32.0 [facility] Comment on above: Order Comment: 101 Performed By: #### L 100.0100 #### [facility] [address] [place], [address] MCHC (RBC) [Mass/Vol] 32.6 g/dL Normal 32-36 [facility] Comment on above: Order Comment: 101 Performed By: #### L 100.0100 #### [facility] [address] [place], [address] MCV (RBC) [Entitic vol] 96.0 fL High 80-94 [facility] Comment on above: Order Comment: 101 Performed By: #### L 100.0100 #### [facility] [address] [place], [address] Monocytes/100 WBC (Bld) 8.0 % Normal 0-10 [facility] Comment on above: Order Comment: 101 Performed By: #### L 100.0100 #### [facility] [address] [place], [address] Neutrophils/100 WBC (Bld) 69.2 % Normal 47-70 [facility] Comment on above: Order Comment: 101 Performed By: #### L 100.0100 #### [facility] [address] [place], [address] Nucleated RBC (Bld) [#/Vol] 0 10*3/uL Normal 0-5 [facility] Comment on above: Order Comment: 101 Performed By: #### L 100.0100 #### [facility] [address] [place], [address] Platelet mean volume (Bld) [Entitic vol] 10.7 fL Normal 6.2-12.0 [facility] Comment on above: Order Comment: 101 Performed By: #### L 100.0100 #### [facility] [address] [place], [address] Platelets (Bld) [#/Vol] 197 10*3/uL Normal 150-450 [facility] Comment on above: Order Comment: 101 Performed By: #### L 100.0100 #### [facility] [address] [place], [address] RBC (Bld) [#/Vol] 4.28 10*6/uL Low 4.6-6.2 [facility] Comment on above: Order Comment: 101 Performed By: #### L 100.0100 #### [facility] [address] [place], [address] RDW SD 46.0 fl High 35.1-43.9 [facility] Comment on above: Order Comment: 101 Performed By: #### L 100.0100 #### [facility] [address] [place], [address] WBC (Bld) [#/Vol] 7.9 10*3/uL Normal 4.4-11.0 [facility] Comment on above: Order Comment: 101 Performed By: #### L 100.0100 #### [facility] [address] [place], [address] Eosinophil percentageOrdered By: Lynn Zurita on 12-30-2024 Eosinophils/100 WBC (Bld) 2.3 % 0-5 [facility] Erythrocyte distribution wid th (RBC) [Ratio]Ordered By: Lynn Zurita on 12-30-2024 Erythrocyte distribution width (RBC) [Entitic vol] 46.0 fL High 35.1-43.9 [facility] Erythrocyte distribution wid th ratioOrdered By: Lynn Zurita on 12-30-2024 Erythrocyte distribution width (RBC) [Ratio] 13.1 % 11.6-14.6 [facility] Hematocrit Auto (Bld) [Volum e fraction]Ordered By: Lynn Zurita on 12-30-2024 Hematocrit (Bld) [Volume fraction] 41.1 % 40-54 [facility] Hemoglobin measurementOrdere d By: Lynn Zurita on 12-30-2024 Hemoglobin (Bld) [Mass/Vol] 13.4 g/dL 13.0-16.5 [facility] Immature granulocytes/100 WB C Auto (Bld)Ordered By: Lynn Zurita on 12-30-2024 Immature granulocytes/100 WBC (Bld) 1.000 % High 0.0-0.9 [facility] Comment on above: IG% - Immature Granu locytes (promyelocytes, myelocytes and metamyelocytes) > 1% indicates that a LEFT SHIFT is Present. Lymphocytes Auto (Unsp spec) [#/Vol]Ordered By: Lynn Zurita on 12-30-2024 Lymphocytes (Bld) [#/Vol] 1.50 10*3/uL 0.83-4.51 [facility] Lymphocytes/100 WBC Auto (Un sp spec)Ordered By: Lynn Zurita on 12-30-2024 Lymphocytes/100 WBC (Bld) 19.0 % 19-41 [facility] MCV (mean corpuscular volume ) determinationOrdered By: yLnn Zurita on 12-30-2024 MCV (RBC) [Entitic vol] 96.0 fL High 80-94 [facility] Mean corpuscular hemoglobin (MCH) determinationOrdered By: Lynn Zurita on 12-30-2024 MCH (RBC) [Entitic mass] 31.3 pg 27.0-32.0 [facility] Mean corpuscular hemoglobin concentration (MCHC) determinationOrdered By: Lynn Zurita on 12-30-2024 MCHC (RBC) [Mass/Vol] 32.6 g/dL 32-36 [facility] Mean platelet volume determi nationOrdered By: Lynn Zurita on 12-30-2024 Platelet mean volume (Bld) [Entitic vol] 10.7 fL 6.2-12.0 [facility] Monocyte percentageOrdered B y: Lynn Zurita on 12-30-2024 Monocytes/100 WBC (Bld) 8.0 % 0-10 [facility] Neutrophil percentageOrdered By: Lynn Zurita on 12-30-2024 Neutrophils/100 WBC (Bld) 69.2 % 47-70 [facility] Nucleated red blood cell per centageOrdered By: Lynn Zurita on 12-30-2024 Nucleated RBC/100 WBC (Bld) [Ratio] 0 % 0-5 [facility] Platelet countOrdered By: Radames Zurita on 12-30-2024 Platelets (Bld) [#/Vol] 197 10*3/uL 150-450 [facility] RBC Auto (Bld) [#/Vol]Ordere d By: Lynn Zurita on 12-30-2024 RBC (Bld) [#/Vol] 4.28 10*6/uL Low 4.6-6.2 [facility] White blood cell (WBC) count Ordered By: Lynn Zurita on 12-30-2024 WBC (Bld) [#/Vol] 7.9 10*3/uL 4.4-11.0 [facility] CBC-Complete Blood Cnt No Di ffon 12-02-2024 Erythrocyte distribution width (RBC) [Ratio] 13.4 % Normal 11.6-14.6 [facility] Comment on above: Order Comment: CLEAN CATCH Performed By: #### L 400.0001, M100.2200, L500.4050, L100.0500 #### [facility] [address] [place], [address] Hematocrit (Bld) [Volume fraction] 38.7 % Low 40-54 [facility] Comment on above: Order Comment: CLEAN CATCH Performed By: #### L 400.0001, M100.2200, L500.4050, L100.0500 #### [facility] [address] [place], [address] Hemoglobin (Bld) [Mass/Vol] 12.7 g/dL Low 13.0-16.5 [facility] Comment on above: Order Comment: CLEAN CATCH Performed By: #### L 400.0001, M100.2200, L500.4050, L100.0500 #### [facility] [address] [place], [address] MCH (RBC) [Entitic mass] 31.4 pg Normal 27.0-32.0 [facility] Comment on above: Order Comment: CLEAN CATCH Performed By: #### L 400.0001, M100.2200, L500.4050, L100.0500 #### [facility] [address] [place], [address] MCHC (RBC) [Mass/Vol] 32.8 g/dL Normal 32-36 [facility] Comment on above: Order Comment: CLEAN CATCH Performed By: #### L 400.0001, M100.2200, L500.4050, L100.0500 #### [facility] [address] [place], [address] MCV (RBC) [Entitic vol] 95.6 fL High 80-94 [facility] Comment on above: Order Comment: CLEAN CATCH Performed By: #### L 400.0001, M100.2200, L500.4050, L100.0500 #### [facility] [address] [place], [address] Platelet mean volume (Bld) [Entitic vol] 10.4 fL Normal 6.2-12.0 [facility] Comment on above: Order Comment: CLEAN CATCH Performed By: #### L 400.0001, M100.2200, L500.4050, L100.0500 #### [facility] [address] [place], [address] Platelets (Bld) [#/Vol] 170 10*3/uL Normal 150-450 [facility] Comment on above: Order Comment: CLEAN CATCH Performed By: #### L 400.0001, M100.2200, L500.4050, L100.0500 #### [facility] [address] [place], [address] RBC (Bld) [#/Vol] 4.05 10*6/uL Low 4.6-6.2 [facility] Comment on above: Order Comment: CLEAN CATCH Performed By: #### L 400.0001, M100.2200, L500.4050, L100.0500 #### [facility] [address] [place], [address] RDW SD 47.0 fl High 35.1-43.9 [facility] Comment on above: Order Comment: CLEAN CATCH Performed By: #### L 400.0001, M100.2200, L500.4050, L100.0500 #### [facility] [address] [place], [address] WBC (Bld) [#/Vol] 7.4 10*3/uL Normal 4.4-11.0 [facility] Comment on above: Order Comment: CLEAN CATCH Performed By: #### L 400.0001, M100.2200, L500.4050, L100.0500 #### [facility] [address] [place], [address] Erythrocyte distribution wid th (RBC) [Ratio]Ordered By: Lynn Zurita on 12-02-2024 Erythrocyte distribution width (RBC) [Entitic vol] 47.0 fL High 35.1-43.9 [facility] Erythrocyte distribution wid th ratioOrdered By: Lynn Zurita on 12-02-2024 Erythrocyte distribution width (RBC) [Ratio] 13.4 % 11.6-14.6 [facility] Hematocrit Auto (Bld) [Volum e fraction]Ordered By: Lynn Zuirta on 12-02-2024 Hematocrit (Bld) [Volume fraction] 38.7 % Low 40-54 [facility] Hemoglobin measurementOrdere d By: Lynn Zurita on 12-02-2024 Hemoglobin (Bld) [Mass/Vol] 12.7 g/dL Low 13.0-16.5 [facility] MCV (mean corpuscular volume ) determinationOrdered By: Lynn Zurita on 12-02-2024 MCV (RBC) [Entitic vol] 95.6 fL High 80-94 [facility] Mean corpuscular hemoglobin (MCH) determinationOrdered By: Lynn Zurita on 12-02-2024 MCH (RBC) [Entitic mass] 31.4 pg 27.0-32.0 [facility] Mean corpuscular hemoglobin concentration (MCHC) determinationOrdered By: Lynn Zurita on 12-02-2024 MCHC (RBC) [Mass/Vol] 32.8 g/dL 32-36 [facility] Mean platelet volume determi nationOrdered By: Lynn Zurita on 12-02-2024 Platelet mean volume (Bld) [Entitic vol] 10.4 fL 6.2-12.0 [facility] Platelet countOrdered By: Radames Zurita on 12-02-2024 Platelets (Bld) [#/Vol] 170 10*3/uL 150-450 [facility] RBC Auto (Bld) [#/Vol]Ordere d By: Lynn Zurita on 12-02-2024 RBC (Bld) [#/Vol] 4.05 10*6/uL Low 4.6-6.2 [facility] White blood cell (WBC) count Ordered By: Lynn Zurita on 12-02-2024 WBC (Bld) [#/Vol] 7.4 10*3/uL 4.4-11.0 [facility] Hemoglobin A1con 11-12-2024 HbA1c (Bld) [Mass fraction] 6.9 % High 3.8-5.6 [facility] Comment on above: Order Comment: 101 Result Comment: Norm al < 5.7 % Prediabetic 5.7 - 6.4 % Diabetic >or= 6.5 % Please note range changes. Performed By: #### L 400.0001, M100.2200, L500.4050, L100.0500 #### [facility] [address] [place], [address] Hemoglobin A1c percentageOrd ered By: Lynn Zurita on 11-12-2024 HbA1c (Bld) [Mass fraction] 6.9 % High 3.8-5.6 [facility] Comment on above: Normal < 5.7 % Predi abetic 5.7 - 6.4 % Diabetic >or= 6.5 % Please note range changes. Absolute neutrophil countOrd ered By: Lynn Zurita on 11-04-2024 Neutrophils (Bld) [#/Vol] 5.7 10*3/uL 2.0-7.7 [facility] Basophil percentageOrdered B y: Lynn Antonjennifer on 11-04-2024 Basophils/100 WBC (Bld) 0.5 % 0-1 [facility] CBC W/Diff, Automatedon 10-08-2023 Absolute Lymph 1.46 X10 3/uL Normal 0.83-4.51 [facility] Comment on above: Order Comment: CLEAN CATCH Performed By: #### L 400.0001, M100.2200, L500.4050, L100.0500 #### [facility] [address] [place], [address] Absolute Neut 5.7 X10 3/uL Normal 2.0-7.7 [facility] Comment on above: Order Comment: CLEAN CATCH Performed By: #### L 400.0001, M100.2200, L500.4050, L100.0500 #### [facility] [address] [place], [address] Basophils/100 WBC (Bld) 0.5 % Normal 0-1 [facility] Comment on above: Order Comment: CLEAN CATCH Performed By: #### L 400.0001, M100.2200, L500.4050, L100.0500 #### [facility] [address] [place], [address] Eosinophils/100 WBC (Bld) 3.2 % Normal 0-5 [facility] Comment on above: Order Comment: CLEAN CATCH Performed By: #### L 400.0001, M100.2200, L500.4050, L100.0500 #### [facility] [address] [place], [address] Erythrocyte distribution width (RBC) [Ratio] 13.4 % Normal 11.6-14.6 [facility] Comment on above: Order Comment: CLEAN CATCH Performed By: #### L 400.0001, M100.2200, L500.4050, L100.0500 #### [facility] [address] [place], [address] Hematocrit (Bld) [Volume fraction] 40.7 % Normal 40-54 [facility] Comment on above: Order Comment: CLEAN CATCH Performed By: #### L 400.0001, M100.2200, L500.4050, L100.0500 #### [facility] [address] [place], [address] Hemoglobin (Bld) [Mass/Vol] 13.8 g/dL Normal 13.0-16.5 [facility] Comment on above: Order Comment: CLEAN CATCH Performed By: #### L 400.0001, M100.2200, L500.4050, L100.0500 #### [facility] [address] [place], [address] IG% 0.900 Normal 0.0-0.9 [facility] Comment on above: Order Comment: CLEAN CATCH Result Comment: IG% - Immature Granulocytes (promyelocytes, myelocytes and metamyelocytes) > 1% indicates that a LEFT SHIFT is Present. Performed By: #### L 400.0001, M100.2200, L500.4050, L100.0500 #### [facility] [address] [place], [address] Lymphocytes/100 WBC (Bld) 17.9 % Low 19-41 [facility] Comment on above: Order Comment: CLEAN CATCH Performed By: #### L 400.0001, M100.2200, L500.4050, L100.0500 #### [facility] [address] [place], [address] MCH (RBC) [Entitic mass] 32.6 pg High 27.0-32.0 [facility] Comment on above: Order Comment: CLEAN CATCH Performed By: #### L 400.0001, M100.2200, L500.4050, L100.0500 #### [facility] [address] [place], [address] MCHC (RBC) [Mass/Vol] 33.9 g/dL Normal 32-36 [facility] Comment on above: Order Comment: CLEAN CATCH Performed By: #### L 400.0001, M100.2200, L500.4050, L100.0500 #### [facility] [address] [place], [address] MCV (RBC) [Entitic vol] 96.2 fL High 80-94 [facility] Comment on above: Order Comment: CLEAN CATCH Performed By: #### L 400.0001, M100.2200, L500.4050, L100.0500 #### [facility] [address] [place], [address] Monocytes/100 WBC (Bld) 7.8 % Normal 0-10 [facility] Comment on above: Order Comment: CLEAN CATCH Performed By: #### L 400.0001, M100.2200, L500.4050, L100.0500 #### [facility] [address] [place], [address] Neutrophils/100 WBC (Bld) 69.7 % Normal 47-70 [facility] Comment on above: Order Comment: CLEAN CATCH Performed By: #### L 400.0001, M100.2200, L500.4050, L100.0500 #### [facility] [address] [place], [address] Nucleated RBC (Bld) [#/Vol] 0 10*3/uL Normal 0-5 [facility] Comment on above: Order Comment: CLEAN CATCH Performed By: #### L 400.0001, M100.2200, L500.4050, L100.0500 #### [facility] [address] [place], [address] Platelet mean volume (Bld) [Entitic vol] 10.7 fL Normal 6.2-12.0 [facility] Comment on above: Order Comment: CLEAN CATCH Performed By: #### L 400.0001, M100.2200, L500.4050, L100.0500 #### [facility] [address] [place], [address] Platelets (Bld) [#/Vol] 166 10*3/uL Normal 150-450 [facility] Comment on above: Order Comment: CLEAN CATCH Performed By: #### L 400.0001, M100.2200, L500.4050, L100.0500 #### [facility] [address] [place], [address] RBC (Bld) [#/Vol] 4.23 10*6/uL Low 4.6-6.2 [facility] Comment on above: Order Comment: CLEAN CATCH Performed By: #### L 400.0001, M100.2200, L500.4050, L100.0500 #### [facility] Laboratory [address] [place], [address] RDW SD 47.6 fl High 35.1-43.9 [facility] Comment on above: Order Comment: CLEAN CATCH Performed By: #### L 400.0001, M100.2200, L500.4050, L100.0500 #### [facility] Laboratory [address] [place], [address] WBC (Bld) [#/Vol] 8.2 10*3/uL Normal 4.4-11.0 [facility] Comment on above: Order Comment: CLEAN CATCH Performed By: #### L 400.0001, M100.2200, L500.4050, L100.0500 #### [facility] [place], [address] Eosinophil percentageOrdered By: Lynn Zurita on 11-04-2024 Eosinophils/100 WBC (Bld) 3.2 % 0-5 [facility] Erythrocyte distribution wid th (RBC) [Ratio]Ordered By: Lynn Zurita on 11-04-2024 Erythrocyte distribution width (RBC) [Entitic vol] 47.6 fL High 35.1-43.9 [facility] Erythrocyte distribution wid th ratioOrdered By: Lynnluke Zurita on 11-04-2024 Erythrocyte distribution width (RBC) [Ratio] 13.4 % 11.6-14.6 [facility] Hematocrit Auto (Bld) [Volum e fraction]Ordered By: Lynn Zurita on 11-04-2024 Hematocrit (Bld) [Volume fraction] 40.7 % 40-54 [facility] Hemoglobin measurementOrdere d By: Lynn Zurita on 11-04-2024 Hemoglobin (Bld) [Mass/Vol] 13.8 g/dL 13.0-16.5 [facility] Immature granulocytes/100 WB C Auto (Bld)Ordered By: Lynn Zurita on 11-04-2024 Immature granulocytes/100 WBC (Bld) 0.900 % 0.0-0.9 [facility] Comment on above: IG% - Immature Granu locytes (promyelocytes, myelocytes and metamyelocytes) > 1% indicates that a LEFT SHIFT is Present. Lymphocytes Auto (Unsp spec) [#/Vol]Ordered By: Lynn Zurita on 11-04-2024 Lymphocytes (Bld) [#/Vol] 1.46 10*3/uL 0.83-4.51 [facility] Lymphocytes/100 WBC Auto (Un sp spec)Ordered By: Lynn Zurita on 11-04-2024 Lymphocytes/100 WBC (Bld) 17.9 % Low 19-41 [facility] MCV (mean corpuscular volume ) determinationOrdered By: Lynn Zurita on 11-04-2024 MCV (RBC) [Entitic vol] 96.2 fL High 80-94 [facility] Mean corpuscular hemoglobin (MCH) determinationOrdered By: Lynn Zurita on 11-04-2024 MCH (RBC) [Entitic mass] 32.6 pg High 27.0-32.0 [facility] Mean corpuscular hemoglobin concentration (MCHC) determinationOrdered By: Lynn Zurita on 11-04-2024 MCHC (RBC) [Mass/Vol] 33.9 g/dL 32-36 [facility] Mean platelet volume determi nationOrdered By: Lynn Zurita on 11-04-2024 Platelet mean volume (Bld) [Entitic vol] 10.7 fL 6.2-12.0 [facility] Monocyte percentageOrdered B y: Lynn Zurita on 11-04-2024 Monocytes/100 WBC (Bld) 7.8 % 0-10 [facility] Neutrophil percentageOrdered By: Lynn Zurita on 11-04-2024 Neutrophils/100 WBC (Bld) 69.7 % 47-70 [facility] Nucleated red blood cell per centageOrdered By: Lynn Zurita on 11-04-2024 Nucleated RBC/100 WBC (Bld) [Ratio] 0 % 0-5 [facility] Platelet countOrdered By: Radames Zurita on 11-04-2024 Platelets (Bld) [#/Vol] 166 10*3/uL 150-450 [facility] RBC Auto (Bld) [#/Vol]Ordere d By: Lynn Zurita on 11-04-2024 RBC (Bld) [#/Vol] 4.23 10*6/uL Low 4.6-6.2 [facility] White blood cell (WBC) count Ordered By: Lynn Zurita on 11-04-2024 WBC (Bld) [#/Vol] 8.2 10*3/uL 4.4-11.0 [facility] Lipid Profileon 10-14-2024 Cholesterol [Mass/Vol] 165 mg/dL Normal 200 [facility] Comment on above: Order Comment: 101 Result Comment: <200 mg/dL Desirable 200-240 mg/dL Borderline >240 mg/dL High Risk Performed By: #### L 400.0001, M100.2200, L500.4050, L100.0500 #### [facility] Laboratory [address] [place], [address] Cholesterol in HDL [Mass/Vol] 30 mg/dL Low [facility] Comment on above: Order Comment: 101 Result Comment: The drugs N-Acetylcysteine and Metamizole may falsely depress this assay. Reference Range HDL <40 mg/dL Low HDL Cholesterol HDL >or= 60 mg/dL High HDL Cholesterol Performed By: #### L 400.0001, M100.2200, L500.4050, L100.0500 #### [facility] Laboratory [address] [place], [address] Cholesterol in LDL [Mass/Vol] 69 mg/dL Normal 0-130 [facility] Comment on above: Order Comment: 101 Performed By: #### L 400.0001, M100.2200, L500.4050, L100.0500 #### [facility] Laboratory [address] [place], [address] Cholesterol in VLDL [Mass/Vol] 66 mg/dL High 5-40 [facility] Comment on above: Order Comment: 101 Performed By: #### L 400.0001, M100.2200, L500.4050, L100.0500 #### [facility] Laboratory [address] [place], [address] Triglyceride [Mass/Vol] 328 mg/dL High [facility] Comment on above: Order Comment: 101 Result Comment: The drugs N-Acetylcysteine and Metamizole may falsely depress this assay. Serum Triglycerides Reference Interval Normal <150 mg/dL Borderline high 150 - 199 mg/dL High 200 - 499 mg/dL Very High > or = 500 mg/dL Performed By: #### L 400.0001, M100.2200, L500.4050, L100.0500 #### [facility] Laboratory [address] [place], [address] CBC W/Diff, Automatedon 12-0 Absolute Lymph 1.51 X10 3/uL Normal 0.83-4.51 [facility] Comment on above: Order Comment: 101 Performed By: #### L 100.0100 #### [facility] Laboratory [address] [place], [address] Absolute Neut 4.5 X10 3/uL Normal 2.0-7.7 [facility] Comment on above: Order Comment: 101 Performed By: #### L 100.0100 #### [facility] Laboratory [address] [place], [address] Basophils/100 WBC (Bld) 0.6 % Normal 0-1 [facility] Comment on above: Order Comment: 101 Performed By: #### L 100.0100 #### [facility] Laboratory [address] [place], [address] Eosinophils/100 WBC (Bld) 2.6 % Normal 0-5 [facility] Comment on above: Order Comment: 101 Performed By: #### L 100.0100 #### [facility] Laboratory [address] [place], [address] Erythrocyte distribution width (RBC) [Ratio] 13.2 % Normal 11.6-14.6 [facility] Comment on above: Order Comment: 101 Performed By: #### L 100.0100 #### [facility] Laboratory [address] [place], [address] Hematocrit (Bld) [Volume fraction] 41.6 % Normal 40-54 [facility] Comment on above: Order Comment: 101 Performed By: #### L 100.0100 #### [facility] [address] [place], [address] Hemoglobin (Bld) [Mass/Vol] 14.4 g/dL Normal 13.0-16.5 [facility] Comment on above: Order Comment: 101 Performed By: #### L 100.0100 #### [facility] [address] [place], [address] IG% 1.000 High 0.0-0.9 [facility] Comment on above: Order Comment: 101 Result Comment: IG% - Immature Granulocytes (promyelocytes, myelocytes and metamyelocytes) > 1% indicates that a LEFT SHIFT is Present. Performed By: #### L 100.0100 #### [facility] Laboratory [address] [place], [address] Lymphocytes/100 WBC (Bld) 21.7 % Normal 19-41 [facility] Comment on above: Order Comment: 101 Performed By: #### L 100.0100 #### [facility] Laboratory [address] [place], [address] MCH (RBC) [Entitic mass] 32.5 pg High 27.0-32.0 [facility] Comment on above: Order Comment: 101 Performed By: #### L 100.0100 #### [facility] [address] [place], [address] MCHC (RBC) [Mass/Vol] 34.6 g/dL Normal 32-36 [facility] Comment on above: Order Comment: 101 Performed By: #### L 100.0100 #### [facility] [address] [place], [address] MCV (RBC) [Entitic vol] 93.9 fL Normal 80-94 [facility] Comment on above: Order Comment: 101 Performed By: #### L 100.0100 #### [facility] [address] [place], [address] Monocytes/100 WBC (Bld) 9.4 % Normal 0-10 [facility] Comment on above: Order Comment: 101 Performed By: #### L 100.0100 #### [facility] [address] [place], [address] Neutrophils/100 WBC (Bld) 64.7 % Normal 47-70 [facility] Comment on above: Order Comment: 101 Performed By: #### L 100.0100 #### [facility] [address] [place], [address] Nucleated RBC (Bld) [#/Vol] 0 10*3/uL Normal 0-5 [facility] Comment on above: Order Comment: 101 Performed By: #### L 100.0100 #### [facility] [address] [place], [address] Platelet mean volume (Bld) [Entitic vol] 10.9 fL Normal 6.2-12.0 [facility] Comment on above: Order Comment: 101 Performed By: #### L 100.0100 #### [facility] [address] [place], [address] Platelets (Bld) [#/Vol] 181 10*3/uL Normal 150-450 [facility] Comment on above: Order Comment: 101 Performed By: #### L 100.0100 #### [facility] [address] [place], [address] RBC (Bld) [#/Vol] 4.43 10*6/uL Low 4.6-6.2 [facility] Comment on above: Order Comment: 101 Performed By: #### L 100.0100 #### [facility] [address] [place], [address] RDW SD 45.1 fl High 35.1-43.9 [facility] Comment on above: Order Comment: 101 Performed By: #### L 100.0100 #### [facility] [address] [place], [address] WBC (Bld) [#/Vol] 7.0 10*3/uL Normal 4.4-11.0 [facility] Comment on above: Order Comment: 101 Performed By: #### L 100.0100 #### [facility] [address] [place], [address] CBC W/Diff, Automatedon 11-0 4-2023 Absolute Lymph 1.72 X10 3/uL Normal 0.83-4.51 [facility] Comment on above: Order Comment: 101 Performed By: #### L 100.0100 #### [facility] [address] [place], [address] Absolute Neut 4.7 X10 3/uL Normal 2.0-7.7 [facility] Comment on above: Order Comment: 101 Performed By: #### L 100.0100 #### [facility] Laboratory [address] [place], [address] Basophils/100 WBC (Bld) 0.6 % Normal 0-1 [facility] Comment on above: Order Comment: 101 Performed By: #### L 100.0100 #### [facility] [address] [place], [address] Eosinophils/100 WBC (Bld) 2.8 % Normal 0-5 [facility] Comment on above: Order Comment: 101 Performed By: #### L 100.0100 #### [facility] Laboratory [address] [place], [address] Erythrocyte distribution width (RBC) [Ratio] 12.9 % Normal 11.6-14.6 [facility] Comment on above: Order Comment: 101 Performed By: #### L 100.0100 #### [facility] Laboratory [address] [place], [address] Hematocrit (Bld) [Volume fraction] 42.2 % Normal 40-54 [facility] Comment on above: Order Comment: 101 Performed By: #### L 100.0100 #### [facility] [address] [place], [address] Hemoglobin (Bld) [Mass/Vol] 14.3 g/dL Normal 13.0-16.5 [facility] Comment on above: Order Comment: 101 Performed By: #### L 100.0100 #### [facility] [address] [place], [address] IG% 1.100 High 0.0-0.9 [facility] Comment on above: Order Comment: 101 Result Comment: IG% - Immature Granulocytes (promyelocytes, myelocytes and metamyelocytes) > 1% indicates that a LEFT SHIFT is Present. Performed By: #### L 100.0100 #### [facility] [address] [place], [address] Lymphocytes/100 WBC (Bld) 23.7 % Normal 19-41 [facility] Comment on above: Order Comment: 101 Performed By: #### L 100.0100 #### [facility] Laboratory [address] [place], [address] MCH (RBC) [Entitic mass] 31.6 pg Normal 27.0-32.0 [facility] Comment on above: Order Comment: 101 Performed By: #### L 100.0100 #### [facility] Laboratory [address] [place], [address] MCHC (RBC) [Mass/Vol] 33.9 g/dL Normal 32-36 [facility] Comment on above: Order Comment: 101 Performed By: #### L 100.0100 #### [facility] [address] [place], [address] MCV (RBC) [Entitic vol] 93.4 fL Normal 80-94 [facility] Comment on above: Order Comment: 101 Performed By: #### L 100.0100 #### [facility] [address] [place], [address] Monocytes/100 WBC (Bld) 7.3 % Normal 0-10 [facility] Comment on above: Order Comment: 101 Performed By: #### L 100.0100 #### [facility] [address] [place], [address] Neutrophils/100 WBC (Bld) 64.5 % Normal 47-70 [facility] Comment on above: Order Comment: 101 Performed By: #### L 100.0100 #### [facility] [address] [place], [address] Nucleated RBC (Bld) [#/Vol] 0 10*3/uL Normal 0-5 [facility] Comment on above: Order Comment: 101 Performed By: #### L 100.0100 #### [facility] [address] [place], [address] Platelet mean volume (Bld) [Entitic vol] 10.9 fL Normal 6.2-12.0 [facility] Comment on above: Order Comment: 101 Performed By: #### L 100.0100 #### [facility] [address] [place], [address] Platelets (Bld) [#/Vol] 160 10*3/uL Normal 150-450 [facility] Comment on above: Order Comment: 101 Performed By: #### L 100.0100 #### [facility] [address] [place], [address] RBC (Bld) [#/Vol] 4.52 10*6/uL Low 4.6-6.2 [facility] Comment on above: Order Comment: 101 Performed By: #### L 100.0100 #### [facility] [address] [place], [address] RDW SD 43.8 fl Normal 35.1-43.9 [facility] Comment on above: Order Comment: 101 Performed By: #### L 100.0100 #### [facility] [address] [place], [address] WBC (Bld) [#/Vol] 7.3 10*3/uL Normal 4.4-11.0 [facility] Comment on above: Order Comment: 101 Performed By: #### L 100.0100 #### [facility] [address] [place], [address] CBC W/Diff, Automatedon 10-0 -2023 Absolute Lymph 1.93 X10 3/uL Normal 0.83-4.51 [facility] Comment on above: Order Comment: 101-1 Performed By: #### L 501.9985, L100.0100 #### [facility] [address] [place], [address] Absolute Neut 4.4 X10 3/uL Normal 2.0-7.7 [facility] Comment on above: Order Comment: 101-1 Performed By: #### L 501.9985, L100.0100 #### [facility] [address] [place], [address] Basophils/100 WBC (Bld) 0.4 % Normal 0-1 [facility] Comment on above: Order Comment: 101-1 Performed By: #### L 501.9985, L100.0100 #### [facility] [address] [place], [address] Eosinophils/100 WBC (Bld) 2.8 % Normal 0-5 [facility] Comment on above: Order Comment: 101-1 Performed By: #### L 501.9985, L100.0100 #### [facility] [address] [place], [address] Erythrocyte distribution width (RBC) [Ratio] 12.9 % Normal 11.6-14.6 [facility] Comment on above: Order Comment: 101-1 Performed By: #### L 501.9985, L100.0100 #### [facility] [address] [place], [address] Hematocrit (Bld) [Volume fraction] 41.6 % Normal 40-54 [facility] Comment on above: Order Comment: 101-1 Performed By: #### L 501.9985, L100.0100 #### [facility] [address] [place], [address] Hemoglobin (Bld) [Mass/Vol] 14.2 g/dL Normal 13.0-16.5 [facility] Comment on above: Order Comment: 101-1 Performed By: #### L 501.9985, L100.0100 #### [facility] [address] [place], [address] IG% 1.100 High 0.0-0.9 [facility] Comment on above: Order Comment: 101-1 Result Comment: IG% - Immature Granulocytes (promyelocytes, myelocytes and metamyelocytes) > 1% indicates that a LEFT SHIFT is Present. Performed By: #### L 501.9985, L100.0100 #### [facility] [address] [place], [address] Lymphocytes/100 WBC (Bld) 26.8 % Normal 19-41 [facility] Comment on above: Order Comment: 101-1 Performed By: #### L 501.9985, L100.0100 #### [facility] [address] [place], [address] MCH (RBC) [Entitic mass] 32.3 pg High 27.0-32.0 [facility] Comment on above: Order Comment: 101-1 Performed By: #### L 501.9985, L100.0100 #### [facility] [address] [place], [address] MCHC (RBC) [Mass/Vol] 34.1 g/dL Normal 32-36 [facility] Comment on above: Order Comment: 101-1 Performed By: #### L 501.9985, L100.0100 #### [facility] [address] [place], [address] MCV (RBC) [Entitic vol] 94.8 fL High 80-94 [facility] Comment on above: Order Comment: 101-1 Performed By: #### L 501.9985, L100.0100 #### [facility] [address] [place], [address] Monocytes/100 WBC (Bld) 7.6 % Normal 0-10 [facility] Comment on above: Order Comment: 101-1 Performed By: #### L 501.9985, L100.0100 #### [facility] [address] [place], [address] Neutrophils/100 WBC (Bld) 61.3 % Normal 47-70 [facility] Comment on above: Order Comment: 101-1 Performed By: #### L 501.9985, L100.0100 #### [facility] [address] [place], [address] Nucleated RBC (Bld) [#/Vol] 0 10*3/uL Normal 0-5 [facility] Comment on above: Order Comment: 101-1 Performed By: #### L 501.9985, L100.0100 #### [facility] [address] [place], [address] Platelet mean volume (Bld) [Entitic vol] 11.3 fL Normal 6.2-12.0 [facility] Comment on above: Order Comment: 101-1 Performed By: #### L 501.9985, L100.0100 #### [facility] [address] [place], [address] Platelets (Bld) [#/Vol] 155 10*3/uL Normal 150-450 [facility] Comment on above: Order Comment: 101-1 Performed By: #### L 501.9985, L100.0100 #### [facility] [address] [place], [address] RBC (Bld) [#/Vol] 4.39 10*6/uL Low 4.6-6.2 [facility] Comment on above: Order Comment: 101-1 Performed By: #### L 501.9985, L100.0100 #### [facility] [address] [place], [address] RDW SD 44.2 fl High 35.1-43.9 [facility] Comment on above: Order Comment: 101-1 Performed By: #### L 501.9985, L100.0100 #### [facility] [address] [place], [address] WBC (Bld) [#/Vol] 7.2 10*3/uL Normal 4.4-11.0 [facility] Comment on above: Order Comment: 101-1 Performed By: #### L 501.9985, L100.0100 #### [facility] [address] [place], [address] Hemoglobin A1con 08-12-2024 HbA1c (Bld) [Mass fraction] 7.8 % High 3.8-5.6 [facility] Comment on above: Order Comment: 101-1 Result Comment: Norm al < 5.7 % Prediabetic 5.7 - 6.4 % Diabetic >or= 6.5 % Please note range changes. Performed By: #### L 501.9985, L100.0100 #### [facility] [address] [place], [address] Basic Metabolic Profile (BMP )on 07-22-2024 BUN/CRE 18.1 RATIO Normal 10-20 [facility] Comment on above: Order Comment: 101 Performed By: #### L 400.0001, M100.2200, L500.4050, L100.0500 #### [facility] [address] [place], [address] CA,Total 8.9 mg/dL Normal 8.5-10.1 [facility] Comment on above: Order Comment: 101 Performed By: #### L 400.0001, M100.2200, L500.4050, L100.0500 #### [facility] [address] [place], [address] Chloride [Moles/Vol] 105 mmol/L Normal 98-107 [facility] Comment on above: Order Comment: 101 Performed By: #### L 400.0001, M100.2200, L500.4050, L100.0500 #### [facility] [address] [place], [address] CO2 [Moles/Vol] 23.0 mmol/L Normal 21.0-32.0 [facility] Comment on above: Order Comment: 101 Performed By: #### L 400.0001, M100.2200, L500.4050, L100.0500 #### [facility] [address] [place], [address] Creatinine [Mass/Vol] 1.05 mg/dL Normal 0.70-1.30 [facility] Comment on above: Order Comment: 101 Result Comment: The validity of the calculated GFR GFRAA in patients over 70 years has not been determined. Clinical correlation is essential. Performed By: #### L 400.0001, M100.2200, L500.4050, L100.0500 #### [facility] [address] [place], [address] EST GFR - AA 90 mL/min Normal >60 [facility] Comment on above: Order Comment: 101 Result Comment: Afri can [place] GFR Calc Performed By: #### L 400.0001, M100.2200, L500.4050, L100.0500 #### [facility] [address] [place], [address] GAP 9 Normal 5-15 [facility] Comment on above: Order Comment: 101 Performed By: #### L 400.0001, M100.2200, L500.4050, L100.0500 #### [facility] [address] [place], [address] GFR/1.73 sq M.predicted among non-blacks MDRD (S/P/Bld) [Vol rate/Area] 74 mL/min/{1.73_m2} Normal >60 [facility] Comment on above: Order Comment: 101 Result Comment: Non- GFR Calc Performed By: #### L 400.0001, M100.2200, L500.4050, L100.0500 #### [facility] [address] [place], [address] Glucose [Mass/Vol] 183 mg/dL High 74-106 [facility] Comment on above: Order Comment: 101 Result Comment: Fast ing Glucose result greater than or equal to 126 mg/dL suggests DIABETES MELLITUS per A.D.A. criteria. Performed By: #### L 400.0001, M100.2200, L500.4050, L100.0500 #### [facility] [address] [place], [address] Potassium [Moles/Vol] 4.2 mmol/L Normal 3.5-5.1 [facility] Comment on above: Order Comment: 101 Result Comment: Slig ht Hemolysis, Result may be falsely increased. Performed By: #### L 400.0001, M100.2200, L500.4050, L100.0500 #### [facility] [address] [place], [address] Sodium [Moles/Vol] 137 mmol/L Normal 136-145 [facility] Comment on above: Order Comment: 101 Performed By: #### L 400.0001, M100.2200, L500.4050, L100.0500 #### [facility] [address] [place], [address] Urea nitrogen [Mass/Vol] 19 mg/dL High 7-18 [facility] Comment on above: Order Comment: 101 Performed By: #### L 400.0001, M100.2200, L500.4050, L100.0500 #### [facility] [address] [place], [address] CBC W/Diff, Automatedon 09-0 -2023 Absolute Lymph 1.50 X10 3/uL Normal 0.83-4.51 [facility] Comment on above: Order Comment: CLEAN CATCH Performed By: #### L 400.0001, M100.2200, L500.4050, L100.0500 #### [facility] [address] [place], [address] Absolute Neut 4.9 X10 3/uL Normal 2.0-7.7 [facility] Comment on above: Order Comment: CLEAN CATCH Performed By: #### L 400.0001, M100.2200, L500.4050, L100.0500 #### [facility] [address] [place], [address] Basophils/100 WBC (Bld) 0.6 % Normal 0-1 [facility] Comment on above: Order Comment: CLEAN CATCH Performed By: #### L 400.0001, M100.2200, L500.4050, L100.0500 #### [facility] [address] [place], [address] Eosinophils/100 WBC (Bld) 2.6 % Normal 0-5 [facility] Comment on above: Order Comment: CLEAN CATCH Performed By: #### L 400.0001, M100.2200, L500.4050, L100.0500 #### [facility] [address] [place], [address] Erythrocyte distribution width (RBC) [Ratio] 13.1 % Normal 11.6-14.6 [facility] Comment on above: Order Comment: CLEAN CATCH Performed By: #### L 400.0001, M100.2200, L500.4050, L100.0500 #### [facility] [address] [place], [address] Hematocrit (Bld) [Volume fraction] 44.4 % Normal 40-54 [facility] Comment on above: Order Comment: CLEAN CATCH Performed By: #### L 400.0001, M100.2200, L500.4050, L100.0500 #### [facility] [address] [place], [address] Hemoglobin (Bld) [Mass/Vol] 14.7 g/dL Normal 13.0-16.5 [facility] Comment on above: Order Comment: CLEAN CATCH Performed By: #### L 400.0001, M100.2200, L500.4050, L100.0500 #### [facility] [address] [place], [address] IG% 1.500 High 0.0-0.9 [facility] Comment on above: Order Comment: CLEAN CATCH Result Comment: IG% - Immature Granulocytes (promyelocytes, myelocytes and metamyelocytes) > 1% indicates that a LEFT SHIFT is Present. Performed By: #### L 400.0001, M100.2200, L500.4050, L100.0500 #### [facility] [address] [place], [address] Lymphocytes/100 WBC (Bld) 20.7 % Normal 19-41 [facility] Comment on above: Order Comment: CLEAN CATCH Performed By: #### L 400.0001, M100.2200, L500.4050, L100.0500 #### [facility] [address] [place], [address] MCH (RBC) [Entitic mass] 31.6 pg Normal 27.0-32.0 [facility] Comment on above: Order Comment: CLEAN CATCH Performed By: #### L 400.0001, M100.2200, L500.4050, L100.0500 #### [facility] [address] [place], [address] MCHC (RBC) [Mass/Vol] 33.1 g/dL Normal 32-36 [facility] Comment on above: Order Comment: CLEAN CATCH Performed By: #### L 400.0001, M100.2200, L500.4050, L100.0500 #### [facility] [address] [place], [address] MCV (RBC) [Entitic vol] 95.5 fL High 80-94 [facility] Comment on above: Order Comment: CLEAN CATCH Performed By: #### L 400.0001, M100.2200, L500.4050, L100.0500 #### [facility] [address] [place], [address] Monocytes/100 WBC (Bld) 7.3 % Normal 0-10 [facility] Comment on above: Order Comment: CLEAN CATCH Performed By: #### L 400.0001, M100.2200, L500.4050, L100.0500 #### [facility] [address] [place], [address] Neutrophils/100 WBC (Bld) 67.3 % Normal 47-70 [facility] Comment on above: Order Comment: CLEAN CATCH Performed By: #### L 400.0001, M100.2200, L500.4050, L100.0500 #### [facility] [address] [place], [address] Nucleated RBC (Bld) [#/Vol] 0 10*3/uL Normal 0-5 [facility] Comment on above: Order Comment: CLEAN CATCH Performed By: #### L 400.0001, M100.2200, L500.4050, L100.0500 #### [facility] [address] [place], [address] Platelet mean volume (Bld) [Entitic vol] 11.1 fL Normal 6.2-12.0 [facility] Comment on above: Order Comment: CLEAN CATCH Performed By: #### L 400.0001, M100.2200, L500.4050, L100.0500 #### [facility] [address] [place], [address] Platelets (Bld) [#/Vol] 176 10*3/uL Normal 150-450 [facility] Comment on above: Order Comment: CLEAN CATCH Performed By: #### L 400.0001, M100.2200, L500.4050, L100.0500 #### [facility] [address] [place], [address] RBC (Bld) [#/Vol] 4.65 10*6/uL Normal 4.6-6.2 [facility] Comment on above: Order Comment: CLEAN CATCH Performed By: #### L 400.0001, M100.2200, L500.4050, L100.0500 #### [facility] [address] [place], [address] RDW SD 46.3 fl High 35.1-43.9 [facility] Comment on above: Order Comment: CLEAN CATCH Performed By: #### L 400.0001, M100.2200, L500.4050, L100.0500 #### [facility] [address] [place], [address] WBC (Bld) [#/Vol] 7.2 10*3/uL Normal 4.4-11.0 [facility] Comment on above: Order Comment: CLEAN CATCH Performed By: #### L 400.0001, M100.2200, L500.4050, L100.0500 #### [facility] [address] [place], [address] Hemoglobin A1con 07-15-2024 HbA1c (Bld) [Mass fraction] 8.2 % High 3.8-5.6 [facility] Comment on above: Order Comment: CLEAN CATCH Result Comment: Norm al < 5.7 % Prediabetic 5.7 - 6.4 % Diabetic >or= 6.5 % Please note range changes. Performed By: #### L 400.0001, M100.2200, L500.4050, L100.0500 #### [facility] [address] [place], [address] CBC-Complete Blood Cnt No Di ffon 06-17-2024 Erythrocyte distribution width (RBC) [Ratio] 13.2 % Normal 11.6-14.6 [facility] Comment on above: Performed By: #### L 501.9985, L100.0500 #### [facility] [address] [place], [address] Hematocrit (Bld) [Volume fraction] 41.8 % Normal 40-54 [facility] Comment on above: Performed By: #### L 501.9985, L100.0500 #### [facility] [address] [place], [address] Hemoglobin (Bld) [Mass/Vol] 14.0 g/dL Normal 13.0-16.5 [facility] Comment on above: Performed By: #### L 501.9985, L100.0500 #### [facility] [address] [place], [address] MCH (RBC) [Entitic mass] 31.7 pg Normal 27.0-32.0 [facility] Comment on above: Performed By: #### L 501.9985, L100.0500 #### [facility] [address] [place], [address] MCHC (RBC) [Mass/Vol] 33.5 g/dL Normal 32-36 [facility] Comment on above: Performed By: #### L 501.9985, L100.0500 #### [facility] [address] [place], [address] MCV (RBC) [Entitic vol] 94.8 fL High 80-94 [facility] Comment on above: Performed By: #### L 501.9985, L100.0500 #### [facility] [address] [place], [address] Platelet mean volume (Bld) [Entitic vol] 11.2 fL Normal 6.2-12.0 [facility] Comment on above: Performed By: #### L 501.9985, L100.0500 #### [facility] [address] [place], [address] Platelets (Bld) [#/Vol] 185 10*3/uL Normal 150-450 [facility] Comment on above: Performed By: #### L 501.9985, L100.0500 #### [facility] [address] [place], [address] RBC (Bld) [#/Vol] 4.41 10*6/uL Low 4.6-6.2 [facility] Comment on above: Performed By: #### L 501.9985, L100.0500 #### [facility] [address] [place], [address] RDW SD 45.4 fl High 35.1-43.9 [facility] Comment on above: Performed By: #### L 501.9985, L100.0500 #### [facility] [address] [place], [address] WBC (Bld) [#/Vol] 7.5 10*3/uL Normal 4.4-11.0 [facility] Comment on above: Performed By: #### L 501.9985, L100.0500 #### [facility] [address] [place], [address] Hemoglobin A1con 06-17-2024 HbA1c (Bld) [Mass fraction] 7.8 % High 3.8-5.6 [facility] Comment on above: Result Comment: Norm al < 5.7 % Prediabetic 5.7 - 6.4 % Diabetic >or= 6.5 % Please note range changes. Performed By: #### L 400.0001, M100.2200, L500.4050, L100.0500 #### [facility] [address] [place], [address] Urine Cultureon 05-28-2024 [facility] UNKNOWN METHOD OF COLLECTION Culture exhibits no growth. Normal [facility] Comment on above: Performed By: #### L 400.0001, M100.2200, L500.4050, L100.0500 #### [facility] [address] [place], [address] Urinalysis, Completeon 05-27 BACTERIA 0 SEEN Normal None Seen [facility] Comment on above: Order Comment: 101 Performed By: #### L 400.0001, M100.2200, L500.4050, L100.0500 #### [facility] [address] [place], [address] EPI,SQUAMOUS 0 SEEN Normal 0-5 [facility] Comment on above: Order Comment: 101 Performed By: #### L 400.0001, M100.2200, L500.4050, L100.0500 #### [facility] [address] [place], [address] Mucus Ql (Urine sed) 0 SEEN Normal [facility] Comment on above: Order Comment: 101 Performed By: #### L 400.0001, M100.2200, L500.4050, L100.0500 #### [facility] [address] [place], [address] RBC 0 SEEN Normal 0-5 [facility] Comment on above: Order Comment: 101 Performed By: #### L 400.0001, M100.2200, L500.4050, L100.0500 #### [facility] [address] [place], [address] WBC 0 SEEN Normal 0-5 [facility] Comment on above: Order Comment: 101 Performed By: #### L 400.0001, M100.2200, L500.4050, L100.0500 #### [facility] [address] [place], [address] CBC W/Diff, Automatedon 05-06 Absolute Lymph 1.90 X10 3/uL Normal 0.83-4.51 [facility] Comment on above: Order Comment: CLEAN CATCH Performed By: #### L 400.0001, M100.2200, L500.4050, L100.0500 #### [facility] [address] [place], [address] Absolute Neut 4.2 X10 3/uL Normal 2.0-7.7 [facility] Comment on above: Order Comment: CLEAN CATCH Performed By: #### L 400.0001, M100.2200, L500.4050, L100.0500 #### [facility] [address] [place], [address] Basophils/100 WBC (Bld) 0.9 % Normal 0-1 [facility] Comment on above: Order Comment: CLEAN CATCH Performed By: #### L 400.0001, M100.2200, L500.4050, L100.0500 #### [facility] [address] [place], [address] Eosinophils/100 WBC (Bld) 3.3 % Normal 0-5 [facility] Comment on above: Order Comment: CLEAN CATCH Performed By: #### L 400.0001, M100.2200, L500.4050, L100.0500 #### [facility] [address] [place], [address] Erythrocyte distribution width (RBC) [Ratio] 12.9 % Normal 11.6-14.6 [facility] Comment on above: Order Comment: CLEAN CATCH Performed By: #### L 400.0001, M100.2200, L500.4050, L100.0500 #### [facility] [address] [place], [address] Hematocrit (Bld) [Volume fraction] 40.9 % Normal 40-54 [facility] Comment on above: Order Comment: CLEAN CATCH Performed By: #### L 400.0001, M100.2200, L500.4050, L100.0500 #### [facility] [address] [place], [address] Hemoglobin (Bld) [Mass/Vol] 14.0 g/dL Normal 13.0-16.5 [facility] Comment on above: Order Comment: CLEAN CATCH Performed By: #### L 400.0001, M100.2200, L500.4050, L100.0500 #### [facility] [address] [place], [address] IG% 1.100 High 0.0-0.9 [facility] Comment on above: Order Comment: CLEAN CATCH Result Comment: IG% - Immature Granulocytes (promyelocytes, myelocytes and metamyelocytes) > 1% indicates that a LEFT SHIFT is Present. Performed By: #### L 400.0001, M100.2200, L500.4050, L100.0500 #### [facility] [address] [place], [address] Lymphocytes/100 WBC (Bld) 27.1 % Normal 19-41 [facility] Comment on above: Order Comment: CLEAN CATCH Performed By: #### L 400.0001, M100.2200, L500.4050, L100.0500 #### [facility] [address] [place], [address] MCH (RBC) [Entitic mass] 31.6 pg Normal 27.0-32.0 [facility] Comment on above: Order Comment: CLEAN CATCH Performed By: #### L 400.0001, M100.2200, L500.4050, L100.0500 #### [facility] [address] [place], [address] MCHC (RBC) [Mass/Vol] 34.2 g/dL Normal 32-36 [facility] Comment on above: Order Comment: CLEAN CATCH Performed By: #### L 400.0001, M100.2200, L500.4050, L100.0500 #### [facility] [address] [place], [address] MCV (RBC) [Entitic vol] 92.3 fL Normal 80-94 [facility] Comment on above: Order Comment: CLEAN CATCH Performed By: #### L 400.0001, M100.2200, L500.4050, L100.0500 #### [facility] [address] [place], [address] Monocytes/100 WBC (Bld) 8.0 % Normal 0-10 [facility] Comment on above: Order Comment: CLEAN CATCH Performed By: #### L 400.0001, M100.2200, L500.4050, L100.0500 #### [facility] [address] [place], [address] Neutrophils/100 WBC (Bld) 59.6 % Normal 47-70 [facility] Comment on above: Order Comment: CLEAN CATCH Performed By: #### L 400.0001, M100.2200, L500.4050, L100.0500 #### [facility] [address] [place], [address] Nucleated RBC (Bld) [#/Vol] 0 10*3/uL Normal 0-5 [facility] Comment on above: Order Comment: CLEAN CATCH Performed By: #### L 400.0001, M100.2200, L500.4050, L100.0500 #### [facility] [address] [place], [address] Platelet mean volume (Bld) [Entitic vol] 11.0 fL Normal 6.2-12.0 [facility] Comment on above: Order Comment: CLEAN CATCH Performed By: #### L 400.0001, M100.2200, L500.4050, L100.0500 #### [facility] [address] [place], [address] Platelets (Bld) [#/Vol] 159 10*3/uL Normal 150-450 [facility] Comment on above: Order Comment: CLEAN CATCH Performed By: #### L 400.0001, M100.2200, L500.4050, L100.0500 #### [facility] [address] [place], [address] RBC (Bld) [#/Vol] 4.43 10*6/uL Low 4.6-6.2 [facility] Comment on above: Order Comment: CLEAN CATCH Performed By: #### L 400.0001, M100.2200, L500.4050, L100.0500 #### [facility] [address] [place], [address] RDW SD 43.6 fl Normal 35.1-43.9 [facility] Comment on above: Order Comment: CLEAN CATCH Performed By: #### L 400.0001, M100.2200, L500.4050, L100.0500 #### [facility] [address] [place], [address] WBC (Bld) [#/Vol] 7.0 10*3/uL Normal 4.4-11.0 [facility] Comment on above: Order Comment: CLEAN CATCH Performed By: #### L 400.0001, M100.2200, L500.4050, L100.0500 #### [facility] [address] [place], [address] Hemoglobin A1con 05-17-2024 HbA1c (Bld) [Mass fraction] 7.4 % High 3.8-5.6 [facility] Comment on above: Order Comment: CLEAN CATCH Result Comment: Norm al < 5.7 % Prediabetic 5.7 - 6.4 % Diabetic >or= 6.5 % Please note range changes. Performed By: #### L 400.0001, M100.2200, L500.4050, L100.0500 #### [facility] [address] [place], [address] CBC W/Diff, Automatedon 04-06-2023 Absolute Lymph 1.42 X10 3/uL Normal 0.83-4.51 [facility] Comment on above: Order Comment: 101 Performed By: #### L 400.0001, M100.2200, L500.4050, L100.0500 #### [facility] [address] [place], [address] Absolute Neut 6.4 X10 3/uL Normal 2.0-7.7 [facility] Comment on above: Order Comment: 101 Performed By: #### L 400.0001, M100.2200, L500.4050, L100.0500 #### [facility] [address] [place], [address] Basophils/100 WBC (Bld) 0.7 % Normal 0-1 [facility] Comment on above: Order Comment: 101 Performed By: #### L 400.0001, M100.2200, L500.4050, L100.0500 #### [facility] [address] [place], [address] Eosinophils/100 WBC (Bld) 3.3 % Normal 0-5 [facility] Comment on above: Order Comment: 101 Performed By: #### L 400.0001, M100.2200, L500.4050, L100.0500 #### [facility] [address] [place], [address] Erythrocyte distribution width (RBC) [Ratio] 13.2 % Normal 11.6-14.6 [facility] Comment on above: Order Comment: 101 Performed By: #### L 400.0001, M100.2200, L500.4050, L100.0500 #### [facility] [address] [place], [address] Hematocrit (Bld) [Volume fraction] 41.5 % Normal 40-54 [facility] Comment on above: Order Comment: 101 Performed By: #### L 400.0001, M100.2200, L500.4050, L100.0500 #### [facility] [address] [place], [address] Hemoglobin (Bld) [Mass/Vol] 13.8 g/dL Normal 13.0-16.5 [facility] Comment on above: Order Comment: 101 Performed By: #### L 400.0001, M100.2200, L500.4050, L100.0500 #### [facility] [address] [place], [address] IG% 0.700 Normal 0.0-0.9 [facility] Comment on above: Order Comment: 101 Result Comment: IG% - Immature Granulocytes (promyelocytes, myelocytes and metamyelocytes) > 1% indicates that a LEFT SHIFT is Present. Performed By: #### L 400.0001, M100.2200, L500.4050, L100.0500 #### [facility] [address] [place], [address] Lymphocytes/100 WBC (Bld) 16.3 % Low 19-41 [facility] Comment on above: Order Comment: 101 Performed By: #### L 400.0001, M100.2200, L500.4050, L100.0500 #### [facility] [address] [place], [address] MCH (RBC) [Entitic mass] 31.3 pg Normal 27.0-32.0 [facility] Comment on above: Order Comment: 101 Performed By: #### L 400.0001, M100.2200, L500.4050, L100.0500 #### [facility] [address] [place], [address] MCHC (RBC) [Mass/Vol] 33.3 g/dL Normal 32-36 [facility] Comment on above: Order Comment: 101 Performed By: #### L 400.0001, M100.2200, L500.4050, L100.0500 #### [facility] [address] [place], [address] MCV (RBC) [Entitic vol] 94.1 fL High 80-94 [facility] Comment on above: Order Comment: 101 Performed By: #### L 400.0001, M100.2200, L500.4050, L100.0500 #### [facility] [address] [place], [address] Monocytes/100 WBC (Bld) 6.2 % Normal 0-10 [facility] Comment on above: Order Comment: 101 Performed By: #### L 400.0001, M100.2200, L500.4050, L100.0500 #### [facility] [address] [place], [address] Neutrophils/100 WBC (Bld) 72.8 % High 47-70 [facility] Comment on above: Order Comment: 101 Performed By: #### L 400.0001, M100.2200, L500.4050, L100.0500 #### [facility] [address] [place], [address] Nucleated RBC (Bld) [#/Vol] 0 10*3/uL Normal 0-5 [facility] Comment on above: Order Comment: 101 Performed By: #### L 400.0001, M100.2200, L500.4050, L100.0500 #### [facility] [address] [place], [address] Platelet mean volume (Bld) [Entitic vol] 10.8 fL Normal 6.2-12.0 [facility] Comment on above: Order Comment: 101 Performed By: #### L 400.0001, M100.2200, L500.4050, L100.0500 #### [facility] [address] [place], [address] Platelets (Bld) [#/Vol] 165 10*3/uL Normal 150-450 [facility] Comment on above: Order Comment: 101 Performed By: #### L 400.0001, M100.2200, L500.4050, L100.0500 #### [facility] [address] [place], [address] RBC (Bld) [#/Vol] 4.41 10*6/uL Low 4.6-6.2 [facility] Comment on above: Order Comment: 101 Performed By: #### L 400.0001, M100.2200, L500.4050, L100.0500 #### [facility] [address] [place], [address] RDW SD 45.2 fl High 35.1-43.9 [facility] Comment on above: Order Comment: 101 Performed By: #### L 400.0001, M100.2200, L500.4050, L100.0500 #### [facility] [address] [place], [address] WBC (Bld) [#/Vol] 8.7 10*3/uL Normal 4.4-11.0 [facility] Comment on above: Order Comment: 101 Performed By: #### L 400.0001, M100.2200, L500.4050, L100.0500 #### [facility] [address] [place], [address] Absolute Neut Normal 2.0-7.7 [facility] Comment on above: Result Comment: This specimen has been REJECTED due to Laboratory criteria: Clotted. OUTREACH has been notified of need of recollection. 04/19/24838 Pérez R Stoner Performed By: #### L 400.0001, M100.2200, L500.4050, L100.0500 #### [facility] [address] [place], [address] HCT Normal 40-54 [facility] Comment on above: Result Comment: This specimen has been REJECTED due to Laboratory criteria: Clotted. OUTREACH has been notified of need of recollection. 04/19/24838 Pérez R Stoner Performed By: #### L 400.0001, M100.2200, L500.4050, L100.0500 #### [facility] [address] [place], [address] HGB Normal 13.0-16.5 [facility] Comment on above: Result Comment: This specimen has been REJECTED due to Laboratory criteria: Clotted. OUTREACH has been notified of need of recollection. 04/19/24838 Pérez R Stoner Performed By: #### L 400.0001, M100.2200, L500.4050, L100.0500 #### [facility] [address] [place], [address] MCH Normal 27.0-32.0 [facility] Comment on above: Result Comment: This specimen has been REJECTED due to Laboratory criteria: Clotted. OUTREACH has been notified of need of recollection. 04/19/24838 Pérez R Stoner Performed By: #### L 400.0001, M100.2200, L500.4050, L100.0500 #### [facility] [address] [place], [address] MCHC Normal 32-36 [facility] Comment on above: Result Comment: This specimen has been REJECTED due to Laboratory criteria: Clotted. OUTREACH has been notified of need of recollection. 04/19/24838 Pérez R Stoner Performed By: #### L 400.0001, M100.2200, L500.4050, L100.0500 #### [facility] [address] [place], [address] MCV Normal 80-94 [facility] Comment on above: Result Comment: This specimen has been REJECTED due to Laboratory criteria: Clotted. OUTREACH has been notified of need of recollection. 04/19/2439 Pérez R Stoner Performed By: #### L 400.0001, M100.2200, L500.4050, L100.0500 #### [facility] [address] [place], [address] NEUT% Normal 47-70 [facility] Comment on above: Result Comment: This specimen has been REJECTED due to Laboratory criteria: Clotted. OUTREACH has been notified of need of recollection. 04/19/24838 Pérez R Stoner Performed By: #### L 400.0001, M100.2200, L500.4050, L100.0500 #### [facility] [address] [place], [address] PLT Normal 150-450 [facility] Comment on above: Result Comment: This specimen has been REJECTED due to Laboratory criteria: Clotted. OUTREACH has been notified of need of recollection. 04/19/24838 Pérez R Stoner Performed By: #### L 400.0001, M100.2200, L500.4050, L100.0500 #### [facility] [address] [place], [address] RBC Normal 4.6-6.2 [facility] Comment on above: Result Comment: This specimen has been REJECTED due to Laboratory criteria: Clotted. OUTREACH has been notified of need of recollection. 04/19/24838 Pérez R Stoner Performed By: #### L 400.0001, M100.2200, L500.4050, L100.0500 #### [facility] [address] [place], [address] RDW CV Normal 11.6-14.6 [facility] Comment on above: Result Comment: This specimen has been REJECTED due to Laboratory criteria: Clotted. OUTREACH has been notified of need of recollection. 04/19/2439 Pérez Bandar Performed By: #### L 400.0001, M100.2200, L500.4050, L100.0500 #### [facility] [address] [place], [address] RDW SD Normal 35.1-43.9 [facility] Comment on above: Result Comment: This specimen has been REJECTED due to Laboratory criteria: Clotted. OUTREACH has been notified of need of recollection. 04/19/2439 Pérez Bandar Performed By: #### L 400.0001, M100.2200, [id number], L100.0500 #### [facility] [address] [place], [address] WBC Normal 4.4-11.0 [facility] Comment on above: Result Comment: This specimen has been REJECTED due to Laboratory criteria: Clotted. OUTREACH has been notified of need of recollection. 04/19/2439 Pérez Bandar Performed By: #### L 400.0001, M100.2200, [id number], L100.0500 #### [facility] [address] [place], [address] Hemoglobin A1con 04-19-2024 HbA1c (Bld) [Mass fraction] 7.3 % High 3.8-5.6 [facility] Comment on above: Result Comment: Norm al < 5.7 % Prediabetic 5.7 - 6.4 % Diabetic >or= 6.5 % Please note range changes. Performed By: #### L 400.0001, M100.2200, L500.4050, L100.0500 #### [facility] [address] [place], [address] Absolute lymphocyte countOrd ered By: Lynn Zurita on 02-23-2024 Lymphocytes Auto (Unsp spec) [#/Vol] 1.93 10*3/uL 0.83-4.51 [facility] Automated lymphocyte count a s percentage of total leukocytesOrdered By: Lynn Zurita on 02-23-2024 Lymphocytes/100 WBC Auto (Unsp spec) 25.3 % 19-41 [facility] Basophil percentageOrdered B y: Lynn Zurita on 02-23-2024 Basophils/100 WBC (Bld) 1.0 % 0-1 [facility] Bilirubin [Mass/Vol] 0.30 mg/dL 0.20-1.00 [facility] Comment on above: For patients on eltr ombopag therapy, use of Dimension [place] TBIL is not recommended. Chloride [Moles/Vol] 107 mmol/L 98-107 [facility] Eosinophils/100 WBC (Bld) 2.7 % 0-5 [facility] Glucose [Mass/Vol] 147 mg/dL 74-106 [facility] Comment on above: Fasting Glucose resu lt greater than or equal to 126 mg/dL suggests DIABETES MELLITUS per A.D.A. criteria. Hemoglobin (Bld) [Mass/Vol] 14.8 g/dL 13.0-16.5 [facility] Monocytes/100 WBC (Bld) 8.2 % 0-10 [facility] Neutrophils (Bld) [#/Vol] 4.7 10*3/uL 2.0-7.7 [facility] Neutrophils/100 WBC (Bld) 61.5 % 47-70 [facility] Potassium [Moles/Vol] 3.9 mmol/L 3.5-5.1 [facility] Protein [Mass/Vol] 6.9 g/dL 6.4-8.2 [facility] Sodium [Moles/Vol] 141 mmol/L 136-145 [facility] WBC (Bld) [#/Vol] 7.6 10*3/uL 4.4-11.0 [facility] Determination of erythrocyte mean corpuscular volume (MCV)Ordered By: Lynn Zurita on 02-23-2024 MCV (RBC) [Entitic vol] 94.1 fL 80-94 [facility] Erythrocyte distribution wid th ratioOrdered By: Lynn Zurita on 02-23-2024 Erythrocyte distribution width (RBC) [Ratio] 12.9 % 11.6-14.6 [facility] Erythrocyte distribution wid th standard deviationOrdered By: Lynnluke Zurita on 02-23-2024 Erythrocyte distribution width (RBC) [Entitic vol] 44.2 fL 35.1-43.9 [facility] Hematocrit Auto (Bld) [Volum e fraction]Ordered By: Lynn Zurita on 02-23-2024 Hematocrit (Bld) [Volume fraction] 44.3 % 40-54 [facility] Immature granulocytes/100 WB C Auto (Bld)Ordered By: Lynnluke Zurita on 02-23-2024 Immature granulocytes/100 WBC (Bld) 1.300 % 0.0-0.9 [facility] Comment on above: IG% - Immature Granu locytes (promyelocytes, myelocytes and metamyelocytes) > 1% indicates that a LEFT SHIFT is Present. Laboratory - Chemistry and C hemistry - challengeOrdered By: Lynn Zurita on 02-23-2024 Albumin/Globulin [Mass ratio] 1.1 {ratio} 0.9-2.4 [facility] ALP [Catalytic activity/Vol] 81 U/L 45-117 [facility] ALT [Catalytic activity/Vol] 75 U/L 16-61 [facility] CO2 [Moles/Vol] 25.0 mmol/L 21.0-32.0 [facility] Globulin (S) [Mass/Vol] 3.3 g/dL 2.2-4.2 [facility] Lipase [Catalytic activity/Vol] 70 U/L 13-75 [facility] Comment on above: Please note:LIPASE r evised reference range effective 23. New Lipase methodology. Expected to produce lower values than the previous assay method. NEW Reference Range: 13 - 75 U/L Urea nitrogen/Creatinine [Mass ratio] 11.8 mg/mg 10-20 [facility] - Hematology and Cell countsOrdered By: Lynn Zurita on 02-23-2024 MCH (RBC) [Entitic mass] 31.4 pg 27.0-32.0 [facility] MCHC (RBC) [Mass/Vol] 33.4 g/dL 32-36 [facility] Nucleated RBC/100 WBC (Bld) [Ratio] 0 % 0-5 [facility] Platelet mean volume (Bld) [Entitic vol] 10.9 fL 6.2-12.0 [facility] Platelets (Bld) [#/Vol] 185 10*3/uL 150-450 [facility] No Panel InformationOrdered By: Lynn Zurita on 02-23-2024 Estimated GFR (MDRD) Amer 93 mL/min >60 [facility] Comment on above: GFR Calc Estimated GFR (MDRD) Non-Af Amer 77 mL/min >60 [facility] Comment on above: Non- GFR Calc RBC Auto (Bld) [#/Vol]Ordere d By: Lynn Zurita on 02-23-2024 RBC (Bld) [#/Vol] 4.71 10*6/uL 4.6-6.2 [facility] Serum or plasma calcium federico urement (mass/volume)Ordered By: Lynn Zurita on 02-23-2024 Calcium [Mass/Vol] 8.9 mg/dL 8.5-10.1 [facility] Serum or plasma creatinine m easurement (mass/volume)Ordered By: Lynn Zurita on 02-23-2024 Creatinine [Mass/Vol] 1.02 mg/dL 0.70-1.30 [facility] Comment on above: The validity of the calculated GFR & GFRAA in patients over 70 years has not been determined. Clinical correlation is essential. Serum or plasma urea nitroge n measurement (mass/volume)Ordered By: Lynn Zurita on 02-23-2024 Urea nitrogen [Mass/Vol] 12 mg/dL 7-18 [facility] Thin prep Papanicolaou smear with manual screeningOrdered By: Lynn Zurita on 02-23-2024 Thin prep Papanicolaou smear with manual screening 3.6 g/dL 3.2-5.0 [facility] Thin prep Papanicolaou smear with manual screening 36 U/L 15-37 [facility] Thin prep Papanicolaou smear with manual screening 9 5-15 [facility] Absolute lymphocyte countOrd ered By: Lynn Zurita on 01-25-2024 Lymphocytes Auto (Unsp spec) [#/Vol] 2.04 10*3/uL 0.83-4.51 [facility] Automated lymphocyte count a s percentage of total leukocytesOrdered By: Lynn Zurita on 01-25-2024 Lymphocytes/100 WBC Auto (Unsp spec) 26.4 % 19-41 [facility] Basophil percentageOrdered B y: Lynn Zurita on 01-25-2024 Basophils/100 WBC (Bld) 0.8 % 0-1 [facility] Eosinophils/100 WBC (Bld) 2.5 % 0-5 [facility] Hemoglobin (Bld) [Mass/Vol] 14.7 g/dL 13.0-16.5 [facility] Monocytes/100 WBC (Bld) 6.6 % 0-10 [facility] Neutrophils (Bld) [#/Vol] 4.8 10*3/uL 2.0-7.7 [facility] Neutrophils/100 WBC (Bld) 62.4 % 47-70 [facility] WBC (Bld) [#/Vol] 7.7 10*3/uL 4.4-11.0 [facility] Determination of erythrocyte mean corpuscular volume (MCV)Ordered By: Lynn Zurita on 01-25-2024 MCV (RBC) [Entitic vol] 95.1 fL 80-94 [facility] Erythrocyte distribution wid th ratioOrdered By: Lynn Zurita on 01-25-2024 Erythrocyte distribution width (RBC) [Ratio] 13.0 % 11.6-14.6 [facility] Erythrocyte distribution wid th standard deviationOrdered By: Lynnluke Zurita on 01-25-2024 Erythrocyte distribution width (RBC) [Entitic vol] 45.4 fL 35.1-43.9 [facility] Hematocrit Auto (Bld) [Volum e fraction]Ordered By: Lynn Zurita on 01-25-2024 Hematocrit (Bld) [Volume fraction] 44.9 % 40-54 [facility] Immature granulocytes/100 WB C Auto (Bld)Ordered By: Lynn Zurita on 01-25-2024 Immature granulocytes/100 WBC (Bld) 1.300 % 0.0-0.9 [facility] Comment on above: IG% - Immature Granu locytes (promyelocytes, myelocytes and metamyelocytes) > 1% indicates that a LEFT SHIFT is Present. Laboratory - Hematology and Cell countsOrdered By: Lynn Zurita on 01-25-2024 MCH (RBC) [Entitic mass] 31.1 pg 27.0-32.0 [facility] MCHC (RBC) [Mass/Vol] 32.7 g/dL 32-36 [facility] Nucleated RBC/100 WBC (Bld) [Ratio] 0 % 0-5 [facility] Platelet mean volume (Bld) [Entitic vol] 11.1 fL 6.2-12.0 [facility] Platelets (Bld) [#/Vol] 192 10*3/uL 150-450 [facility] RBC Auto (Bld) [#/Vol]Ordere d By: Lynn Zurita on 01-25-2024 RBC (Bld) [#/Vol] 4.72 10*6/uL 4.6-6.2 [facility] Absolute lymphocyte countOrd ered By: Lynn Zurita on 12-28-2023 Lymphocytes Auto (Unsp spec) [#/Vol] 1.63 10*3/uL 0.83-4.51 [facility] Automated lymphocyte count a s percentage of total leukocytesOrdered By: Lynn Zurita on 12-28-2023 Lymphocytes/100 WBC Auto (Unsp spec) 21.3 % 19-41 [facility] Basophil percentageOrdered B y: Lynn Zurita on 12-28-2023 Basophils/100 WBC (Bld) 0.8 % 0-1 [facility] Eosinophils/100 WBC (Bld) 3.5 % 0-5 [facility] Hemoglobin (Bld) [Mass/Vol] 14.7 g/dL 13.0-16.5 [facility] Monocytes/100 WBC (Bld) 8.1 % 0-10 [facility] Neutrophils (Bld) [#/Vol] 5.0 10*3/uL 2.0-7.7 [facility] Neutrophils/100 WBC (Bld) 65.0 % 47-70 [facility] WBC (Bld) [#/Vol] 7.7 10*3/uL 4.4-11.0 [facility] Determination of erythrocyte mean corpuscular volume (MCV)Ordered By: Lynn Zurita on 12-28-2023 MCV (RBC) [Entitic vol] 94.6 fL 80-94 [facility] Erythrocyte distribution wid th ratioOrdered By: Lynn Zurita on 12-28-2023 Erythrocyte distribution width (RBC) [Ratio] 13.2 % 11.6-14.6 [facility] Erythrocyte distribution wid th standard deviationOrdered By: Lynn Zurita on 12-28-2023 Erythrocyte distribution width (RBC) [Entitic vol] 45.2 fL 35.1-43.9 [facility] Hematocrit Auto (Bld) [Volum e fraction]Ordered By: Lynn Zurita on 12-28-2023 Hematocrit (Bld) [Volume fraction] 44.1 % 40-54 [facility] Immature granulocytes/100 WB C Auto (Bld)Ordered By: Lynn Zurita on 12-28-2023 Immature granulocytes/100 WBC (Bld) 1.300 % 0.0-0.9 [facility] Comment on above: IG% - Immature Granu locytes (promyelocytes, myelocytes and metamyelocytes) > 1% indicates that a LEFT SHIFT is Present. Laboratory - Hematology and Cell countsOrdered By: Lynn Zurita on 12-28-2023 MCH (RBC) [Entitic mass] 31.5 pg 27.0-32.0 [facility] MCHC (RBC) [Mass/Vol] 33.3 g/dL 32-36 [facility] Nucleated RBC/100 WBC (Bld) [Ratio] 0 % 0-5 [facility] Platelet mean volume (Bld) [Entitic vol] 11.2 fL 6.2-12.0 [facility] Platelets (Bld) [#/Vol] 175 10*3/uL 150-450 [facility] RBC Auto (Bld) [#/Vol]Ordere d By: Lynn Zurita on 12-28-2023 RBC (Bld) [#/Vol] 4.66 10*6/uL 4.6-6.2 [facility] Absolute lymphocyte countOrd ered By: Lynn Zurita on 12-01-2023 Lymphocytes Auto (Unsp spec) [#/Vol] 1.42 10*3/uL 0.83-4.51 [facility] Automated lymphocyte count a s percentage of total leukocytesOrdered By: Lynn Zurita on 12-01-2023 Lymphocytes/100 WBC Auto (Unsp spec) 21.4 % 19-41 [facility] Basophil percentageOrdered B y: Lynn Zurita on 12-01-2023 Basophils/100 WBC (Bld) 0.8 % 0-1 [facility] Eosinophils/100 WBC (Bld) 4.2 % 0-5 [facility] Hemoglobin (Bld) [Mass/Vol] 13.6 g/dL 13.0-16.5 [facility] Monocytes/100 WBC (Bld) 9.2 % 0-10 [facility] Neutrophils (Bld) [#/Vol] 4.2 10*3/uL 2.0-7.7 [facility] Neutrophils/100 WBC (Bld) 62.6 % 47-70 [facility] WBC (Bld) [#/Vol] 6.6 10*3/uL 4.4-11.0 [facility] Determination of erythrocyte mean corpuscular volume (MCV)Ordered By: Lynn Zurita on 12-01-2023 MCV (RBC) [Entitic vol] 94.4 fL 80-94 [facility] Erythrocyte distribution wid th ratioOrdered By: Lynn Zurita on 12-01-2023 Erythrocyte distribution width (RBC) [Ratio] 13.2 % 11.6-14.6 [facility] Erythrocyte distribution wid th standard deviationOrdered By: Lynn Zurita on 12-01-2023 Erythrocyte distribution width (RBC) [Entitic vol] 45.2 fL 35.1-43.9 [facility] Hematocrit Auto (Bld) [Volum e fraction]Ordered By: Lynn Zurita on 12-01-2023 Hematocrit (Bld) [Volume fraction] 40.7 % 40-54 [facility] Immature granulocytes/100 WB C Auto (Bld)Ordered By: Lynn Zurita on 12-01-2023 Immature granulocytes/100 WBC (Bld) 1.800 % 0.0-0.9 [facility] Comment on above: IG% - Immature Granu locytes (promyelocytes, myelocytes and metamyelocytes) > 1% indicates that a LEFT SHIFT is Present. Laboratory - Hematology and Cell countsOrdered By: Lynn Zurita on 12-01-2023 MCH (RBC) [Entitic mass] 31.6 pg 27.0-32.0 [facility] MCHC (RBC) [Mass/Vol] 33.4 g/dL 32-36 [facility] Nucleated RBC/100 WBC (Bld) [Ratio] 0 % 0-5 [facility] Platelets (Bld) [#/Vol] 185 10*3/uL 150-450 [facility] Platelet mean volume Link-Ec ker (Bld) [Entitic vol]Ordered By: Lynn Zurita on 12-01-2023 Platelet mean volume (Bld) [Entitic vol] 11.1 fL 6.2-12.0 [facility] RBC Auto (Bld) [#/Vol]Ordere d By: Lynn Zurita on 12-01-2023 RBC (Bld) [#/Vol] 4.31 10*6/uL 4.6-6.2 [facility] Absolute lymphocyte countOrd ered By: Lynn Zurita on 11-30-2023 Lymphocytes Auto (Unsp spec) [#/Vol] 1.65 10*3/uL 0.83-4.51 [facility] Automated lymphocyte count a s percentage of total leukocytesOrdered By: Lynn Zurita on 11-30-2023 Lymphocytes/100 WBC Auto (Unsp spec) 28.8 % 19-41 [facility] Basophil percentageOrdered B y: Lynn Zurita on 11-30-2023 Basophils/100 WBC (Bld) 0.5 % 0-1 [facility] Eosinophils/100 WBC (Bld) 3.8 % 0-5 [facility] Hemoglobin (Bld) [Mass/Vol] 13.3 g/dL 13.0-16.5 [facility] Monocytes/100 WBC (Bld) 11.0 % 0-10 [facility] Neutrophils (Bld) [#/Vol] 3.1 10*3/uL 2.0-7.7 [facility] Neutrophils/100 WBC (Bld) 54.9 % 47-70 [facility] WBC (Bld) [#/Vol] 5.7 10*3/uL 4.4-11.0 [facility] Determination of erythrocyte mean corpuscular volume (MCV)Ordered By: Lynn Zurita on 11-30-2023 MCV (RBC) [Entitic vol] 95.2 fL 80-94 [facility] Erythrocyte distribution wid th ratioOrdered By: Lynnluke Zurita on 11-30-2023 Erythrocyte distribution width (RBC) [Ratio] 13.3 % 11.6-14.6 [facility] Erythrocyte distribution wid th standard deviationOrdered By: Lynn Zurita on 11-30-2023 Erythrocyte distribution width (RBC) [Entitic vol] 46.9 fL 35.1-43.9 [facility] Hematocrit Auto (Bld) [Volum e fraction]Ordered By: Lynn Zurita on 11-30-2023 Hematocrit (Bld) [Volume fraction] 39.7 % 40-54 [facility] Immature granulocytes/100 WB C Auto (Bld)Ordered By: Lynn Zurita on 11-30-2023 Immature granulocytes/100 WBC (Bld) 1.000 % 0.0-0.9 [facility] Comment on above: IG% - Immature Granu locytes (promyelocytes, myelocytes and metamyelocytes) > 1% indicates that a LEFT SHIFT is Present. Laboratory - Hematology and Cell countsOrdered By: Lynn Zurita on 11-30-2023 MCH (RBC) [Entitic mass] 31.9 pg 27.0-32.0 [facility] MCHC (RBC) [Mass/Vol] 33.5 g/dL 32-36 [facility] Nucleated RBC/100 WBC (Bld) [Ratio] 0 % 0-5 [facility] Platelets (Bld) [#/Vol] 171 10*3/uL 150-450 [facility] Platelet mean volume Link-Ec ker (Bld) [Entitic vol]Ordered By: Lynn Zurita on 11-30-2023 Platelet mean volume (Bld) [Entitic vol] 10.8 fL 6.2-12.0 [facility] RBC Auto (Bld) [#/Vol]Ordere d By: Lynn Zurita on 11-30-2023 RBC (Bld) [#/Vol] 4.17 10*6/uL 4.6-6.2 [facility] Absolute lymphocyte countOrd ered By: Lynn Zurita on 11-02-2023 Lymphocytes Auto (Unsp spec) [#/Vol] 1.74 10*3/uL 0.83-4.51 [facility] Basophil percentageOrdered B y: Lynn Zurita on 11-02-2023 Basophils/100 WBC (Bld) 0.5 % 0-1 [facility] Eosinophils/100 WBC (Bld) 2.6 % 0-5 [facility] Neutrophils (Bld) [#/Vol] 5.0 10*3/uL 2.0-7.7 [facility] Neutrophils/100 WBC (Bld) 65.7 % 47-70 [facility] WBC (Bld) [#/Vol] 7.6 10*3/uL 4.4-11.0 [facility] Blood erythrocytes count (nu mber/volume)Ordered By: Lynn Zurita on 11-02-2023 RBC (Bld) [#/Vol] 4.31 10*6/uL 4.6-6.2 [facility] Blood hemoglobin measurement (mass/volume)Ordered By: Lynn Zurita on 11-02-2023 Hemoglobin (Bld) [Mass/Vol] 13.5 g/dL 13.0-16.5 [facility] Blood lymphocytes/100 leukoc ytesOrdered By: Lynn Zurita on 11-02-2023 Lymphocytes/100 WBC (Bld) 23.0 % 19-41 [facility] Blood monocytes/100 leukocyt esOrdered By: Lynn Zurita on 12-28-2023 Monocytes/100 WBC (Bld) 7.0 % 0-10 [facility] Blood platelet mean volumeOr dered By: Lynn Zurita on 11-02-2023 Platelet mean volume (Bld) [Entitic vol] 11.0 fL 6.2-12.0 [facility] Determination of erythrocyte mean corpuscular volume (MCV)Ordered By: Lynn Zurita on 11-02-2023 MCV (RBC) [Entitic vol] 95.4 fL 80-94 [facility] Hematocrit Auto (Bld) [Volum e fraction]Ordered By: Lynn Zurita on 11-02-2023 Hematocrit (Bld) [Volume fraction] 41.1 % 40-54 [facility] - Hematology and Cell countsOrdered By: Lynn Zurita on 11-02-2023 Erythrocyte distribution width (RBC) [Entitic vol] 47.2 fL 35.1-43.9 [facility] Erythrocyte distribution width (RBC) [Ratio] 13.3 % 11.6-14.6 [facility] Immature granulocytes/100 WBC (Bld) 1.200 % 0.0-0.9 [facility] Comment on above: IG% - Immature Granu locytes (promyelocytes, myelocytes and metamyelocytes) > 1% indicates that a LEFT SHIFT is Present. MCH (RBC) [Entitic mass] 31.3 pg 27.0-32.0 [facility] Nucleated RBC/100 WBC (Bld) [Ratio] 0 % 0-5 [facility] MCHC Auto (RBC) [Mass/Vol]Or dered By: Lynn Zurita on 11-02-2023 MCHC (RBC) [Mass/Vol] 32.8 g/dL 32-36 [facility] Platelets bldOrdered By: Nano Zurita on 11-02-2023 Platelets (Bld) [#/Vol] 188 10*3/uL 150-450 [facility] Absolute lymphocyte countOrd ered By: Lynn Zurita on 10-05-2023 Lymphocytes Auto (Unsp spec) [#/Vol] 1.38 10*3/uL 0.83-4.51 [facility] Basophil percentageOrdered B y: Lynn Zurita on 10-05-2023 Basophils/100 WBC (Bld) 0.7 % 0-1 [facility] Eosinophils/100 WBC (Bld) 3.0 % 0-5 [facility] Neutrophils (Bld) [#/Vol] 5.1 10*3/uL 2.0-7.7 [facility] Neutrophils/100 WBC (Bld) 69.1 % 47-70 [facility] WBC (Bld) [#/Vol] 7.4 10*3/uL 4.4-11.0 [facility] Blood erythrocytes count (nu mber/volume)Ordered By: Lynn Zurita on 10-05-2023 RBC (Bld) [#/Vol] 4.52 10*6/uL 4.6-6.2 [facility] Blood hemoglobin measurement (mass/volume)Ordered By: Lynn Zurita on 10-05-2023 Hemoglobin (Bld) [Mass/Vol] 14.5 g/dL 13.0-16.5 [facility] Blood lymphocytes/100 leukoc ytesOrdered By: Lynn Zurita on 10-05-2023 Lymphocytes/100 WBC (Bld) 18.7 % 19-41 [facility] Blood monocytes/100 leukocyt esOrdered By: Lynn Zurita on 10-05-2023 Monocytes/100 WBC (Bld) 7.4 % 0-10 [facility] Blood platelet mean volumeOr dered By: Lynn Zurita on 10-05-2023 Platelet mean volume (Bld) [Entitic vol] 10.8 fL 6.2-12.0 [facility] Determination of erythrocyte mean corpuscular volume (MCV)Ordered By: Lynn Zurita on 10-05-2023 MCV (RBC) [Entitic vol] 97.6 fL 80-94 [facility] Hematocrit Auto (Bld) [Volum e fraction]Ordered By: Lynn Zurita on 10-05-2023 Hematocrit (Bld) [Volume fraction] 44.1 % 40-54 [facility] - Hematology and Cell countsOrdered By: Lynn Zurita on 10-05-2023 Erythrocyte distribution width (RBC) [Entitic vol] 49.1 fL 35.1-43.9 [facility] Erythrocyte distribution width (RBC) [Ratio] 13.7 % 11.6-14.6 [facility] Immature granulocytes/100 WBC (Bld) 1.100 % 0.0-0.9 [facility] Comment on above: IG% - Immature Granu locytes (promyelocytes, myelocytes and metamyelocytes) > 1% indicates that a LEFT SHIFT is Present. MCH (RBC) [Entitic mass] 32.1 pg 27.0-32.0 [facility] Nucleated RBC/100 WBC (Bld) [Ratio] 0 % 0-5 [facility] MCHC Auto (RBC) [Mass/Vol]Or dered By: Lynn Zurita on 10-05-2023 MCHC (RBC) [Mass/Vol] 32.9 g/dL 32-36 [facility] Platelets bldOrdered By: Nano Zurita on 10-05-2023 Platelets (Bld) [#/Vol] 159 10*3/uL 150-450 [facility] Basophil percentageOrdered B y: Lynn Zurita on 09-11-2023 Bilirubin [Mass/Vol] 0.60 mg/dL 0.20-1.00 [facility] Comment on above: For patients on eltr ombopag therapy, use of Dimension [place] TBIL is not recommended. Chloride [Moles/Vol] 107 mmol/L 98-107 [facility] Glucose [Mass/Vol] 128 mg/dL 74-106 [facility] Comment on above: Fasting Glucose resu lt greater than or equal to 126 mg/dL suggests DIABETES MELLITUS per A.D.A. criteria. Potassium [Moles/Vol] 4.4 mmol/L 3.5-5.1 [facility] Protein [Mass/Vol] 7.3 g/dL 6.4-8.2 [facility] Sodium [Moles/Vol] 138 mmol/L 136-145 [facility] - Chemistry and C hemistry - challengeOrdered By: Lynn Zurita on 09-11-2023 ALP [Catalytic activity/Vol] 86 U/L 45-117 [facility] ALT [Catalytic activity/Vol] 103 U/L 16-61 [facility] CO2 [Moles/Vol] 24.0 mmol/L 21.0-32.0 [facility] Globulin (S) [Mass/Vol] 4.1 g/dL 2.2-4.2 [facility] Urea nitrogen/Creatinine [Mass ratio] 14.9 mg/mg 10-20 [facility] No Panel InformationOrdered By: Lynn Zurita on 09-11-2023 Estimated GFR (MDRD) Amer 82 mL/min >60 [facility] Comment on above: GFR Calc Estimated GFR (MDRD) Non-Af Amer 68 mL/min >60 [facility] Comment on above: Non- GFR Calc Serum or plasma albumin federico urement (mass/volume)Ordered By: Lynn Zurita on 09-11-2023 Albumin [Mass/Vol] 3.2 g/dL 3.2-5.0 [facility] Serum or plasma albumin/glob ulin mass ratioOrdered By: Lynn Zurita on 09-11-2023 Albumin/Globulin [Mass ratio] 0.8 {ratio} 0.9-2.4 [facility] Serum or plasma calcium federico urement (mass/volume)Ordered By: Lynn Zurita on 09-11-2023 Calcium [Mass/Vol] 8.8 mg/dL 8.5-10.1 [facility] Serum or plasma creatinine m easurement (mass/volume)Ordered By: Lynn Zurita on 09-11-2023 Creatinine [Mass/Vol] 1.14 mg/dL 0.70-1.30 [facility] Comment on above: The validity of the calculated GFR & GFRAA in patients over 70 years has not been determined. Clinical correlation is essential. Serum or plasma urea nitroge n measurement (mass/volume)Ordered By: Lynn Zurita on 09-11-2023 Urea nitrogen [Mass/Vol] 17 mg/dL 7-18 [facility] Thin prep Papanicolaou smear with manual screeningOrdered By: Lynn Zurita on 09-11-2023 Thin prep Papanicolaou smear with manual screening 45 U/L 15-37 [facility] Thin prep Papanicolaou smear with manual screening 7 5-15 [facility] Absolute lymphocyte countOrd ered By: Lynn Zurita on 09-07-2023 Lymphocytes Auto (Unsp spec) [#/Vol] 2.50 10*3/uL 0.83-4.51 [facility] Basophil percentageOrdered B y: Lynn Zurita on 09-07-2023 Basophil percentage Not Reportable [facility] Neutrophils (Bld) [#/Vol] 4.4 10*3/uL 2.0-7.7 [facility] WBC (Bld) [#/Vol] 7.9 10*3/uL 4.4-11.0 [facility] Blood eosinophils/100 leukoc ytesOrdered By: Lynn Zurita on 09-07-2023 Eosinophils/100 WBC (Bld) 2 % 0-5 [facility] Blood erythrocytes count (nu mber/volume)Ordered By: Lynn Zurita on 09-07-2023 RBC (Bld) [#/Vol] 4.55 10*6/uL 4.6-6.2 [facility] Blood hemoglobin measurement (mass/volume)Ordered By: Lynn Zurita on 09-07-2023 Hemoglobin (Bld) [Mass/Vol] 14.4 g/dL 13.0-16.5 [facility] Blood lymphocytes/100 leukoc ytesOrdered By: Lynn Zurita on 09-07-2023 Lymphocytes/100 WBC (Bld) 32 % 19-41 [facility] Blood monocytes/100 leukocyt esOrdered By: Lynn Zurita on 09-07-2023 Monocytes/100 WBC (Bld) 10 % 0-10 [facility] Blood platelet adequacy dete ction by light microscopyOrdered By: Lynn Zurita on 09-07-2023 Platelets LM Ql (Bld) ADEQUATE ADEQ [facility] Blood platelet mean volumeOr dered By: Lynn Zurita on 09-07-2023 Platelet mean volume (Bld) [Entitic vol] 10.3 fL 6.2-12.0 [facility] Blood segmented neutrophils/ 100 leukocytesOrdered By: Lynn Zurita on 09-07-2023 Segmented neutrophils/100 WBC (Bld) 56 % 47-70 [facility] Determination of erythrocyte mean corpuscular volume (MCV)Ordered By: Lynn Zurita on 09-07-2023 MCV (RBC) [Entitic vol] 97.8 fL 80-94 [facility] Hematocrit Auto (Bld) [Volum e fraction]Ordered By: Lynn Zurita on 09-07-2023 Hematocrit (Bld) [Volume fraction] 44.5 % 40-54 [facility] - Hematology and Cell countsOrdered By: Lynn Zurita on 09-07-2023 Erythrocyte distribution width (RBC) [Entitic vol] 47.1 fL 35.1-43.9 [facility] Erythrocyte distribution width (RBC) [Ratio] 13.2 % 11.6-14.6 [facility] MCH (RBC) [Entitic mass] 31.6 pg 27.0-32.0 [facility] MCHC Auto (RBC) [Mass/Vol]Or dered By: Lynn Zurita on 09-07-2023 MCHC (RBC) [Mass/Vol] 32.4 g/dL 32-36 [facility] Platelets bldOrdered By: Nano Zurita on 09-07-2023 Platelets (Bld) [#/Vol] 195 10*3/uL 150-450 [facility] RBC morphologyOrdered By: Radames Zurita on 09-07-2023 RBC morphology finding Nom (Bld) NORM C+C NORMAL NORM C&C [facility] Review by pathologistOrdered By: Lynn Zurita on 09-07-2023 Pathologist review Rob (Unsp spec) [Interp] Reviewed [facility] Comment on above: Previous reported re sult: Augusta perez Edited by: ALEXYTZER on 09/11/23:822Neutrophilic left shift.MacrocytosisClinical correlation necessary.Cain Beaver M.D. 09/08/23 AMENDED REPORT 09/11/23822 PATH REV previously reported as: Augusta perez Total cell countOrdered By: Lynn Zurita on 09-07-2023 Cells counted Molgen (Bld/Tiss) [#] 100 MANUAL DIFF [facility] Basophil percentageOrdered B y: Lynn Zurita on 08-21-2023 Chloride [Moles/Vol] 108 mmol/L 98-107 [facility] Glucose [Mass/Vol] 132 mg/dL 74-106 [facility] Comment on above: Fasting Glucose resu lt greater than or equal to 126 mg/dL suggests DIABETES MELLITUS per A.D.A. criteria. Potassium [Moles/Vol] 4.1 mmol/L 3.5-5.1 [facility] Sodium [Moles/Vol] 142 mmol/L 136-145 [facility] - Chemistry and C hemistry - challengeOrdered By: Lynn Zurita on 08-21-2023 CO2 [Moles/Vol] 27.0 mmol/L 21.0-32.0 [facility] Urea nitrogen/Creatinine [Mass ratio] 15.5 mg/mg 10- [facility] No Panel InformationOrdered By: Lynn Zurita on 08-21-2023 Estimated GFR (MDRD) Amer 86 mL/min >60 [facility] Comment on above: GFR Calc Estimated GFR (MDRD) Non-Af Amer 71 mL/min >60 [facility] Comment on above: Non- GFR Calc Serum or plasma calcium federico urement (mass/volume)Ordered By: Lynn Zurita on 08-21-2023 Calcium [Mass/Vol] 9.0 mg/dL 8.5-10.1 [facility] Serum or plasma creatinine m easurement (mass/volume)Ordered By: Lynn Zurita on 08-21-2023 Creatinine [Mass/Vol] 1.10 mg/dL 0.70-1.30 [facility] Comment on above: The validity of the calculated GFR & GFRAA in patients over 70 years has not been determined. Clinical correlation is essential. Serum or plasma urea nitroge n measurement (mass/volume)Ordered By: Lynn Zurita on 08-21-2023 Urea nitrogen [Mass/Vol] 17 mg/dL 7-18 [facility] Thin prep Papanicolaou smear with manual screeningOrdered By: Lynn Zurita on 08-21-2023 Thin prep Papanicolaou smear with manual screening 7 -15 [facility] Absolute lymphocyte countOrd ered By: Lynn Zurita on 08-10-2023 Lymphocytes Auto (Unsp spec) [#/Vol] 2.13 10*3/uL 0.83-4.51 [facility] Basophil percentageOrdered B y: Lynn Zurita on 08-10-2023 Basophils/100 WBC (Bld) 0.7 % 0-1 [facility] Eosinophils/100 WBC (Bld) 2.8 % 0-5 [facility] Neutrophils (Bld) [#/Vol] 3.9 10*3/uL 2.0-7.7 [facility] Neutrophils/100 WBC (Bld) 56.7 % 47-70 [facility] WBC (Bld) [#/Vol] 6.9 10*3/uL 4.4-11.0 [facility] Blood erythrocytes count (nu mber/volume)Ordered By: Lynn Zurita on 08-10-2023 RBC (Bld) [#/Vol] 4.20 10*6/uL 4.6-6.2 [facility] Blood hemoglobin measurement (mass/volume)Ordered By: Lynn Zurita on 08-10-2023 Hemoglobin (Bld) [Mass/Vol] 14.2 g/dL 13.0-16.5 [facility] Blood lymphocytes/100 leukoc ytesOrdered By: Lynn Zurita on 08-10-2023 Lymphocytes/100 WBC (Bld) 31.0 % 19-41 [facility] Blood monocytes/100 leukocyt esOrdered By: Lynn Zurita on 08-10-2023 Monocytes/100 WBC (Bld) 7.9 % 0-10 [facility] Blood platelet mean volumeOr dered By: Lynn Zurita on 08-10-2023 Platelet mean volume (Bld) [Entitic vol] 10.9 fL 6.2-12.0 [facility] Determination of erythrocyte mean corpuscular volume (MCV)Ordered By: Lynn Zurita on 08-10-2023 MCV (RBC) [Entitic vol] 96.0 fL 80-94 [facility] Hematocrit Auto (Bld) [Volum e fraction]Ordered By: Lynn Zurita on 08-10-2023 Hematocrit (Bld) [Volume fraction] 40.3 % 40-54 [facility] - Hematology and Cell countsOrdered By: Lynn Zurita on 08-10-2023 Erythrocyte distribution width (RBC) [Entitic vol] 46.2 fL 35.1-43.9 [facility] Erythrocyte distribution width (RBC) [Ratio] 13.2 % 11.6-14.6 [facility] Immature granulocytes/100 WBC (Bld) 0.900 % 0.0-0.9 [facility] Comment on above: IG% - Immature Granu locytes (promyelocytes, myelocytes and metamyelocytes) > 1% indicates that a LEFT SHIFT is Present. MCH (RBC) [Entitic mass] 33.8 pg 27.0-32.0 [facility] Nucleated RBC/100 WBC (Bld) [Ratio] 0 % 0-5 [facility] MCHC Auto (RBC) [Mass/Vol]Or dered By: Lynn Zurita on 08-10-2023 MCHC (RBC) [Mass/Vol] 35.2 g/dL 32-36 [facility] Platelets bldOrdered By: Nano Zurita on 08-10-2023 Platelets (Bld) [#/Vol] 143 10*3/uL 150-450 [facility] Absolute lymphocyte countOrd ered By: Lynn Zurita on 07-13-2023 Lymphocytes Auto (Unsp spec) [#/Vol] 1.47 10*3/uL 0.83-4.51 [facility] Basophil percentageOrdered B y: Lynn Zurita on 07-13-2023 Basophils/100 WBC (Bld) 0.5 % 0-1 [facility] Eosinophils/100 WBC (Bld) 2.3 % 0-5 [facility] Neutrophils (Bld) [#/Vol] 5.0 10*3/uL 2.0-7.7 [facility] Neutrophils/100 WBC (Bld) 68.1 % 47-70 [facility] WBC (Bld) [#/Vol] 7.4 10*3/uL 4.4-11.0 [facility] Blood erythrocytes count (nu mber/volume)Ordered By: Lynn Zurita on 07-13-2023 RBC (Bld) [#/Vol] 4.34 10*6/uL 4.6-6.2 [facility] Blood hemoglobin measurement (mass/volume)Ordered By: Lynn Zurita on 07-13-2023 Hemoglobin (Bld) [Mass/Vol] 14.2 g/dL 13.0-16.5 [facility] Blood lymphocytes/100 leukoc ytesOrdered By: Lynnluke Zurita on 07-13-2023 Lymphocytes/100 WBC (Bld) 19.9 % 19-41 [facility] Blood monocytes/100 leukocyt esOrdered By: Lynnluke Zurita on 07-13-2023 Monocytes/100 WBC (Bld) 8.0 % 0-10 [facility] Blood platelet mean volumeOr dered By: Lynnluke Zurita on 07-13-2023 Platelet mean volume (Bld) [Entitic vol] 10.8 fL 6.2-12.0 [facility] Determination of erythrocyte mean corpuscular volume (MCV)Ordered By: Ylnnluke Zurita on 07-13-2023 MCV (RBC) [Entitic vol] 93.8 fL 80-94 [facility] Hematocrit Auto (Bld) [Volum e fraction]Ordered By: Lynn Zurita on 07-13-2023 Hematocrit (Bld) [Volume fraction] 40.7 % 40-54 [facility] - Hematology and Cell countsOrdered By: Lynnluke Zurita on 07-13-2023 Erythrocyte distribution width (RBC) [Entitic vol] 45.5 fL 35.1-43.9 [facility] Erythrocyte distribution width (RBC) [Ratio] 13.4 % 11.6-14.6 [facility] Immature granulocytes/100 WBC (Bld) 1.200 % 0.0-0.9 [facility] Comment on above: IG% - Immature Granu locytes (promyelocytes, myelocytes and metamyelocytes) > 1% indicates that a LEFT SHIFT is Present. MCH (RBC) [Entitic mass] 32.7 pg 27.0-32.0 [facility] Nucleated RBC/100 WBC (Bld) [Ratio] 0 % 0-5 [facility] MCHC Auto (RBC) [Mass/Vol]Or dered By: Lynn Zurita on 07-13-2023 MCHC (RBC) [Mass/Vol] 34.9 g/dL 32-36 [facility] Platelets bldOrdered By: Nano Zurita on 07-13-2023 Platelets (Bld) [#/Vol] 157 10*3/uL 150-450 [facility] No Panel InformationOrdered By: Lynn Zurita on 06-27-2023 Thyroid Stimulating Hormone (TSH) 3.70 uIU/mL 0.358-3.74 [facility] Whole blood hemoglobin A1c/t otal hemoglobin ratio (mass fraction)Ordered By: Lynn Zurita on 06-27-2023 HbA1c (Bld) [Mass fraction] 6.5 % 3.8-5.6 [facility] Comment on above: Normal < 5.7 % Predi abetic 5.7 - 6.4 % Diabetic >or= 6.5 % Please note range changes. No Panel InformationOrdered By: Lynn Zurita on 06-26-2023 Thyroid Stimulating Hormone (TSH) 3.87 uIU/mL 0.358-3.74 [facility] Whole blood hemoglobin A1c/t otal hemoglobin ratio (mass fraction)Ordered By: Lynn Zurita on 06-26-2023 HbA1c (Bld) [Mass fraction] 6.6 % 3.8-5.6 [facility] Comment on above: Normal < 5.7 % Predi abetic 5.7 - 6.4 % Diabetic >or= 6.5 % Please note range changes. Absolute lymphocyte countOrd ered By: Lynn Zurita on 06-19-2023 Lymphocytes Auto (Unsp spec) [#/Vol] 1.02 10*3/uL 0.83-4.51 [facility] Basophil percentageOrdered B y: Lynn Zurita on 06-19-2023 Basophil percentage 0 SEEN /hpf 0-5 [facility] Basophils/100 WBC (Bld) 0.3 % 0-1 [facility] Bilirubin [Mass/Vol] 0.50 mg/dL 0.20-1.00 [facility] Comment on above: For patients on eltr ombopag therapy, use of Dimension [place] TBIL is not recommended. Chloride [Moles/Vol] 107 mmol/L 98-107 [facility] Eosinophils/100 WBC (Bld) 1.8 % 0-5 [facility] Glucose [Mass/Vol] 246 mg/dL 74-106 [facility] Comment on above: Glucose result great er than or equal to 200 mg/dLsuggests DIABETES MELLITUS per A.D.A. criteria. Neutrophils (Bld) [#/Vol] 4.5 10*3/uL 2.0-7.7 [facility] Neutrophils/100 WBC (Bld) 75.2 % 47-70 [facility] Potassium [Moles/Vol] 4.0 mmol/L 3.5-5.1 [facility] Protein [Mass/Vol] 6.5 g/dL 6.4-8.2 [facility] Sodium [Moles/Vol] 138 mmol/L 136-145 [facility] WBC (Bld) [#/Vol] 6.0 10*3/uL 4.4-11.0 [facility] Bilirubin Test strip Ql (U)O rdered By: Lynn Zurita on 06-19-2023 Bilirubin Ql (U) Negative Negative [facility] Blood erythrocytes count (nu mber/volume)Ordered By: Lynn Zurita on 06-19-2023 RBC (Bld) [#/Vol] 4.34 10*6/uL 4.6-6.2 [facility] Blood hemoglobin measurement (mass/volume)Ordered By: Lynn Zurita on 06-19-2023 Hemoglobin (Bld) [Mass/Vol] 13.8 g/dL 13.0-16.5 [facility] Blood lymphocytes/100 leukoc ytesOrdered By: Lynn Zurita on 06-19-2023 Lymphocytes/100 WBC (Bld) 17.0 % 19-41 [facility] Blood monocytes/100 leukocyt esOrdered By: Lynn Zurita on 06-19-2023 Monocytes/100 WBC (Bld) 5.2 % 0-10 [facility] Blood platelet mean volumeOr dered By: Lynn Zurita on 06-19-2023 Platelet mean volume (Bld) [Entitic vol] 11.1 fL 6.2-12.0 [facility] Culture, urineOrdered By: Radames Zurita on 06-19-2023 Bacteria identified Cx Nom (U) Culture exhibits no growth. [facility] Determination of erythrocyte mean corpuscular volume (MCV)Ordered By: Lynn Zurita on 06-19-2023 MCV (RBC) [Entitic vol] 95.4 fL 80-94 [facility] Hematocrit Auto (Bld) [Volum e fraction]Ordered By: Lynn Zurita on 06-19-2023 Hematocrit (Bld) [Volume fraction] 41.4 % 40-54 [facility] Ketones Test strip Ql (U)Ord ered By: Lynn Zurita on 06-19-2023 Ketones Ql (U) Negative Negative [facility] - Chemistry and C hemistry - challengeOrdered By: Lynn Zurita on 06-19-2023 ALP [Catalytic activity/Vol] 81 U/L 45-117 [facility] ALT [Catalytic activity/Vol] 74 U/L 16-61 [facility] CO2 [Moles/Vol] 22.0 mmol/L 21.0-32.0 [facility] Globulin (S) [Mass/Vol] 3.2 g/dL 2.2-4.2 [facility] Urea nitrogen/Creatinine [Mass ratio] 20.3 mg/mg 10-20 [facility] - Hematology and Cell countsOrdered By: Lynn Zurita on 06-19-2023 Erythrocyte distribution width (RBC) [Entitic vol] 46.4 fL 35.1-43.9 [facility] Erythrocyte distribution width (RBC) [Ratio] 13.2 % 11.6-14.6 [facility] Immature granulocytes/100 WBC (Bld) 0.500 % 0.0-0.9 [facility] Comment on above: IG% - Immature Granu locytes (promyelocytes, myelocytes and metamyelocytes) > 1% indicates that a LEFT SHIFT is Present. MCH (RBC) [Entitic mass] 31.8 pg 27.0-32.0 [facility] Nucleated RBC/100 WBC (Bld) [Ratio] 0 % 0-5 [facility] MCHC Auto (RBC) [Mass/Vol]Or dered By: Lynn Zurita on 06-19-2023 MCHC (RBC) [Mass/Vol] 33.3 g/dL 32-36 [facility] Mucus LM Ql (Urine sed)Order ed By: Lynn Zurita on 06-19-2023 Mucus Ql (Urine sed) 0 SEEN /hpf [facility] Nitrite Test strip Ql (U)Ord ered By: Lynn Zurita on 06-19-2023 Nitrite Ql (U) Negative Negative [facility] No Panel InformationOrdered By: Lynn Zurita on 06-19-2023 Estimated GFR (MDRD) Amer 56 mL/min >60 [facility] Comment on above: GFR Calc Estimated GFR (MDRD) Non-Af Amer 47 mL/min >60 [facility] Comment on above: Non- GFR Calc Platelets bldOrdered By: Nano Zurita on 06-19-2023 Platelets (Bld) [#/Vol] 168 10*3/uL 150-450 [facility] Protein Test strip Ql (U)Ord ered By: Lynn Zurita on 06-19-2023 Protein Ql (U) 15 mg/dl Negative [facility] Serum or plasma albumin federico urement (mass/volume)Ordered By: Lynn Zurita on 06-19-2023 Albumin [Mass/Vol] 3.3 g/dL 3.2-5.0 [facility] Serum or plasma albumin/glob ulin mass ratioOrdered By: Lynn Zurita on 06-19-2023 Albumin/Globulin [Mass ratio] 1.0 {ratio} 0.9-2.4 [facility] Serum or plasma calcium federico urement (mass/volume)Ordered By: Lynn Zurita on 06-19-2023 Calcium [Mass/Vol] 8.7 mg/dL 8.5-10.1 [facility] Serum or plasma creatinine m easurement (mass/volume)Ordered By: Lynn Zurita on 06-19-2023 Creatinine [Mass/Vol] 1.58 mg/dL 0.70-1.30 [facility] Comment on above: The validity of the calculated GFR & GFRAA in patients over 70 years has not been determined. Clinical correlation is essential. Serum or plasma urea nitroge n measurement (mass/volume)Ordered By: Lynn Zurita on 06-19-2023 Urea nitrogen [Mass/Vol] 32 mg/dL 7-18 [facility] Squamous epithelial cells de tection in urine sediment by light microscopyOrdered By: Lynn Zurita on 06-19-2023 Epithelial cells.squamous LM Ql (Urine sed) 0 SEEN /hpf 0-5 [facility] Thin prep Papanicolaou smear with manual screeningOrdered By: Lynn Zurita on 06-19-2023 Thin prep Papanicolaou smear with manual screening 38 U/L 15-37 [facility] Thin prep Papanicolaou smear with manual screening 9 5-15 [facility] Urine blood detectionOrdered By: Lynn Zurita on 06-19-2023 RBC Ql (U) Negative Negative [facility] RBC Ql (U) 0 SEEN /hpf 0-5 [facility] Urine clarityOrdered By: Nano Zurita on 06-19-2023 Clarity (U) Clear Clear [facility] Urine color determinationOrd ered By: Lynn Zurita on 06-19-2023 Color (U) Yellow Yellow [facility] Urine glucose detectionOrder ed By: Lynn Zurita on 06-19-2023 Glucose Ql (U) Normal mg/dl Normal [facility] Urine leukocyte esterase det ection by dipstickOrdered By: Lynn Zurita on 06-19-2023 Leukocyte esterase Test strip Ql (U) Negative Negative [facility] Urine pHOrdered By: Lynn godinez on 06-19-2023 pH (U) 5.0 [pH] 5.0 - 8.0 [facility] Urine sediment bacteria coun t by microscopy (number/high power field)Ordered By: Lynn Zurita on 06-19-2023 Bacteria LM.HPF (Urine sed) [#/Area] 0 /[HPF] None Seen [facility] Urine specific gravity measu rementOrdered By: Lynn Zurita on 06-19-2023 Specific gravity (U) [Rel density] 1.020 1.002-1.030 [facility] Urobilinogen Auto test strip Ql (U)Ordered By: Lynn Zurita on 06-19-2023 Urobilinogen Ql (U) Normal mg/dl Normal [facility] Absolute lymphocyte countOrd ered By: Lynn Zurita on 06-15-2023 Lymphocytes Auto (Unsp spec) [#/Vol] 1.77 10*3/uL 0.83-4.51 [facility] Basophil percentageOrdered B y: Lynn Zurita on 06-15-2023 Basophils/100 WBC (Bld) 0.5 % 0-1 [facility] Eosinophils/100 WBC (Bld) 1.5 % 0-5 [facility] Neutrophils (Bld) [#/Vol] 5.3 10*3/uL 2.0-7.7 [facility] Neutrophils/100 WBC (Bld) 66.8 % 47-70 [facility] WBC (Bld) [#/Vol] 8.0 10*3/uL 4.4-11.0 [facility] Blood erythrocytes count (nu mber/volume)Ordered By: Lynn Zurita on 06-15-2023 RBC (Bld) [#/Vol] 5.00 10*6/uL 4.6-6.2 [facility] Blood hemoglobin measurement (mass/volume)Ordered By: Lynn Zurita on 06-15-2023 Hemoglobin (Bld) [Mass/Vol] 15.7 g/dL 13.0-16.5 [facility] Blood lymphocytes/100 leukoc ytesOrdered By: Lynn Zurita on 06-15-2023 Lymphocytes/100 WBC (Bld) 22.2 % 19-41 [facility] Blood monocytes/100 leukocyt esOrdered By: Lynn Zurita on 06-15-2023 Monocytes/100 WBC (Bld) 8.0 % 0-10 [facility] Blood platelet mean volumeOr dered By: Lynn Zurita on 06-15-2023 Platelet mean volume (Bld) [Entitic vol] 10.9 fL 6.2-12.0 [facility] Determination of erythrocyte mean corpuscular volume (MCV)Ordered By: Lynn Zurita on 06-15-2023 MCV (RBC) [Entitic vol] 94.4 fL 80-94 [facility] Hematocrit Auto (Bld) [Volum e fraction]Ordered By: Lynn Zurita on 06-15-2023 Hematocrit (Bld) [Volume fraction] 47.2 % 40-54 [facility] - Hematology and Cell countsOrdered By: Lynn Zurita on 06-15-2023 Erythrocyte distribution width (RBC) [Entitic vol] 44.4 fL 35.1-43.9 [facility] Erythrocyte distribution width (RBC) [Ratio] 13.0 % 11.6-14.6 [facility] Immature granulocytes/100 WBC (Bld) 1.000 % 0.0-0.9 [facility] Comment on above: IG% - Immature Granu locytes (promyelocytes, myelocytes and metamyelocytes) > 1% indicates that a LEFT SHIFT is Present. MCH (RBC) [Entitic mass] 31.4 pg 27.0-32.0 [facility] Nucleated RBC/100 WBC (Bld) [Ratio] 0 % 0-5 [facility] MCHC Auto (RBC) [Mass/Vol]Or dered By: Lynn Zurita on 06-15-2023 MCHC (RBC) [Mass/Vol] 33.3 g/dL 32-36 [facility] Platelets bldOrdered By: Nano Zurita on 06-15-2023 Platelets (Bld) [#/Vol] 184 10*3/uL 150-450 [facility] Absolute lymphocyte countOrd ered By: Lynn Zurita on 05-18-2023 Lymphocytes Auto (Unsp spec) [#/Vol] 1.90 10*3/uL 0.83-4.51 [facility] Basophil percentageOrdered B y: Lynn Zurita on 05-18-2023 Basophils/100 WBC (Bld) 0.7 % 0-1 [facility] Eosinophils/100 WBC (Bld) 2.5 % 0-5 [facility] Neutrophils (Bld) [#/Vol] 4.4 10*3/uL 2.0-7.7 [facility] Neutrophils/100 WBC (Bld) 60.4 % 47-70 [facility] WBC (Bld) [#/Vol] 7.2 10*3/uL 4.4-11.0 [facility] Blood erythrocytes count (nu mber/volume)Ordered By: Lynn Zurita on 05-18-2023 RBC (Bld) [#/Vol] 4.66 10*6/uL 4.6-6.2 [facility] Blood hemoglobin measurement (mass/volume)Ordered By: Lynn Zurita on 05-18-2023 Hemoglobin (Bld) [Mass/Vol] 14.8 g/dL 13.0-16.5 [facility] Blood lymphocytes/100 leukoc ytesOrdered By: Lynn Zurita on 05-18-2023 Lymphocytes/100 WBC (Bld) 26.3 % 19-41 [facility] Blood monocytes/100 leukocyt esOrdered By: Lynn Zurita on 05-18-2023 Monocytes/100 WBC (Bld) 8.9 % 0-10 [facility] Blood platelet mean volumeOr dered By: Lynn Zurita on 05-18-2023 Platelet mean volume (Bld) [Entitic vol] 10.8 fL 6.2-12.0 [facility] Determination of erythrocyte mean corpuscular volume (MCV)Ordered By: Lynn Zurita on 05-18-2023 MCV (RBC) [Entitic vol] 95.7 fL 80-94 [facility] Hematocrit Auto (Bld) [Volum e fraction]Ordered By: Lynn Zurita on 05-18-2023 Hematocrit (Bld) [Volume fraction] 44.6 % 40-54 [facility] Laboratory - Hematology and Cell countsOrdered By: Lynn Zurita on 05-18-2023 Erythrocyte distribution width (RBC) [Entitic vol] 46.1 fL 35.1-43.9 [facility] Erythrocyte distribution width (RBC) [Ratio] 13.2 % 11.6-14.6 [facility] Immature granulocytes/100 WBC (Bld) 1.200 % 0.0-0.9 [facility] Comment on above: IG% - Immature Granu locytes (promyelocytes, myelocytes and metamyelocytes) > 1% indicates that a LEFT SHIFT is Present. MCH (RBC) [Entitic mass] 31.8 pg 27.0-32.0 [facility] Nucleated RBC/100 WBC (Bld) [Ratio] 0 % 0-5 [facility] MCHC Auto (RBC) [Mass/Vol]Or dered By: Lynn Zurita on 05-18-2023 MCHC (RBC) [Mass/Vol] 33.2 g/dL 32-36 [facility] Platelets bldOrdered By: Nano Zurita on 05-18-2023 Platelets (Bld) [#/Vol] 165 10*3/uL 150-450 [facility] Absolute lymphocyte countOrd ered By: Lynn Zurita on 04-20-2023 Lymphocytes Auto (Unsp spec) [#/Vol] 1.75 10*3/uL 0.83-4.51 [facility] Basophil percentageOrdered B y: Lynn Zurita on 04-20-2023 Basophils/100 WBC (Bld) 0.4 % 0-1 [facility] Eosinophils/100 WBC (Bld) 3.4 % 0-5 [facility] Neutrophils (Bld) [#/Vol] 4.1 10*3/uL 2.0-7.7 [facility] Neutrophils/100 WBC (Bld) 60.7 % 47-70 [facility] WBC (Bld) [#/Vol] 6.8 10*3/uL 4.4-11.0 [facility] Blood erythrocytes count (nu mber/volume)Ordered By: Lynn Zurita on 04-20-2023 RBC (Bld) [#/Vol] 4.58 10*6/uL 4.6-6.2 [facility] Blood hemoglobin measurement (mass/volume)Ordered By: Lynn Zurita on 04-20-2023 Hemoglobin (Bld) [Mass/Vol] 14.9 g/dL 13.0-16.5 [facility] Blood lymphocytes/100 leukoc ytesOrdered By: Lynn Zurita on 04-20-2023 Lymphocytes/100 WBC (Bld) 25.9 % 19-41 [facility] Blood monocytes/100 leukocyt esOrdered By: Lynn Zurita on 04-20-2023 Monocytes/100 WBC (Bld) 8.7 % 0-10 [facility] Blood platelet mean volumeOr dered By: Lynn Zurita on 04-20-2023 Platelet mean volume (Bld) [Entitic vol] 10.8 fL 6.2-12.0 [facility] Determination of erythrocyte mean corpuscular volume (MCV)Ordered By: Lynn Zurita on 04-20-2023 MCV (RBC) [Entitic vol] 94.8 fL 80-94 [facility] Hematocrit Auto (Bld) [Volum e fraction]Ordered By: Lynn Zurita on 04-20-2023 Hematocrit (Bld) [Volume fraction] 43.4 % 40-54 [facility] Laboratory - Hematology and Cell countsOrdered By: Lynn Zurita on 04-20-2023 Erythrocyte distribution width (RBC) [Entitic vol] 45.0 fL 35.1-43.9 [facility] Erythrocyte distribution width (RBC) [Ratio] 13.0 % 11.6-14.6 [facility] Immature granulocytes/100 WBC (Bld) 0.900 % 0.0-0.9 [facility] Comment on above: IG% - Immature Granu locytes (promyelocytes, myelocytes and metamyelocytes) > 1% indicates that a LEFT SHIFT is Present. MCH (RBC) [Entitic mass] 32.5 pg 27.0-32.0 [facility] Nucleated RBC/100 WBC (Bld) [Ratio] 0 % 0-5 [facility] MCHC Auto (RBC) [Mass/Vol]Or dered By: Lynn Zurita on 04-20-2023 MCHC (RBC) [Mass/Vol] 34.3 g/dL 32-36 [facility] Platelets bldOrdered By: Nano Zurita on 04-20-2023 Platelets (Bld) [#/Vol] 174 10*3/uL 150-450 [facility] Absolute lymphocyte countOrd ered By: Dr. Zurita on 03-23-2023 Lymphocytes Auto (Unsp spec) [#/Vol] 1.85 10*3/uL 0.83-4.51 [facility] Basophil percentageOrdered B y: Dr. Zurita on 03-23-2023 Basophils/100 WBC (Bld) 0.7 % 0-1 [facility] Eosinophils/100 WBC (Bld) 2.6 % 0-5 [facility] Neutrophils (Bld) [#/Vol] 4.2 10*3/uL 2.0-7.7 [facility] Neutrophils/100 WBC (Bld) 60.1 % 47-70 [facility] WBC (Bld) [#/Vol] 7.0 10*3/uL 4.4-11.0 [facility] Blood erythrocytes count (nu mber/volume)Ordered By: Dr. Zurita on 03-23-2023 RBC (Bld) [#/Vol] 4.42 10*6/uL 4.6-6.2 [facility] Blood hemoglobin measurement (mass/volume)Ordered By: Dr. Zurita on 03-23-2023 Hemoglobin (Bld) [Mass/Vol] 14.2 g/dL 13.0-16.5 [facility] Blood lymphocytes/100 leukoc ytesOrdered By: Dr. Zurita on 03-23-2023 Lymphocytes/100 WBC (Bld) 26.4 % 19-41 [facility] Blood monocytes/100 leukocyt esOrdered By: Dr. Zurita on 03-23-2023 Monocytes/100 WBC (Bld) 9.1 % 0-10 [facility] Blood platelet mean volumeOr dered By: Dr. Zurita on 03-23-2023 Platelet mean volume (Bld) [Entitic vol] 10.7 fL 6.2-12.0 [facility] Determination of erythrocyte mean corpuscular volume (MCV)Ordered By: Dr. Zurita on 03-23-2023 MCV (RBC) [Entitic vol] 95.2 fL 80-94 [facility] Hematocrit Auto (Bld) [Volum e fraction]Ordered By: Dr. Zurita on 03-23-2023 Hematocrit (Bld) [Volume fraction] 42.1 % 40-54 [facility] Laboratory - Hematology and Cell countsOrdered By: Dr. Zurita on 03-23-2023 Erythrocyte distribution width (RBC) [Entitic vol] 44.1 fL 35.1-43.9 [facility] Erythrocyte distribution width (RBC) [Ratio] 12.8 % 11.6-14.6 [facility] Immature granulocytes/100 WBC (Bld) 1.100 % 0.0-0.9 [facility] Comment on above: IG% - Immature Granu locytes (promyelocytes, myelocytes and metamyelocytes) > 1% indicates that a LEFT SHIFT is Present. MCH (RBC) [Entitic mass] 32.1 pg 27.0-32.0 [facility] Nucleated RBC/100 WBC (Bld) [Ratio] 0 % 0-5 [facility] MCHC Auto (RBC) [Mass/Vol]Or dered By: Dr. Zurita on 03-23-2023 MCHC (RBC) [Mass/Vol] 33.7 g/dL 32-36 [facility] Platelets bldOrdered By: Dr. Zurita on 03-23-2023 Platelets (Bld) [#/Vol] 180 10*3/uL 150-450 [facility] Absolute lymphocyte countOrd ered By: Dr. Zurita on 02-23-2023 Lymphocytes Auto (Unsp spec) [#/Vol] 1.86 10*3/uL 0.83-4.51 [facility] Basophil percentageOrdered B y: Dr. Zurita on 02-23-2023 Basophils/100 WBC (Bld) 0.7 % 0-1 [facility] Eosinophils/100 WBC (Bld) 3.2 % 0-5 [facility] Neutrophils (Bld) [#/Vol] 4.5 10*3/uL 2.0-7.7 [facility] Neutrophils/100 WBC (Bld) 61.7 % 47-70 [facility] WBC (Bld) [#/Vol] 7.3 10*3/uL 4.4-11.0 [facility] Blood erythrocytes count (nu mber/volume)Ordered By: Dr. Zurita on 02-23-2023 RBC (Bld) [#/Vol] 4.62 10*6/uL 4.6-6.2 [facility] Blood hemoglobin measurement (mass/volume)Ordered By: Dr. Zurita on 02-23-2023 Hemoglobin (Bld) [Mass/Vol] 14.6 g/dL 13.0-16.5 [facility] Blood lymphocytes/100 leukoc ytesOrdered By: Dr. Zurita on 02-23-2023 Lymphocytes/100 WBC (Bld) 25.6 % 19-41 [facility] Blood monocytes/100 leukocyt esOrdered By: Dr. Zurita on 02-23-2023 Monocytes/100 WBC (Bld) 7.7 % 0-10 [facility] Blood platelet mean volumeOr dered By: Dr. Zurita on 02-23-2023 Platelet mean volume (Bld) [Entitic vol] 10.6 fL 6.2-12.0 [facility] Determination of erythrocyte mean corpuscular volume (MCV)Ordered By: Dr. Zuriat on 02-23-2023 MCV (RBC) [Entitic vol] 97.8 fL 80-94 [facility] Hematocrit Auto (Bld) [Volum e fraction]Ordered By: Dr. Zurita on 02-23-2023 Hematocrit (Bld) [Volume fraction] 45.2 % 40-54 [facility] Laboratory - Hematology and Cell countsOrdered By: Dr. Zurita on 02-23-2023 Erythrocyte distribution width (RBC) [Entitic vol] 45.8 fL 35.1-43.9 [facility] Erythrocyte distribution width (RBC) [Ratio] 12.9 % 11.6-14.6 [facility] Immature granulocytes/100 WBC (Bld) 1.100 % 0.0-0.9 [facility] Comment on above: IG% - Immature Granu locytes (promyelocytes, myelocytes and metamyelocytes) > 1% indicates that a LEFT SHIFT is Present. MCH (RBC) [Entitic mass] 31.6 pg 27.0-32.0 [facility] Nucleated RBC/100 WBC (Bld) [Ratio] 0 % 0-5 [facility] MCHC Auto (RBC) [Mass/Vol]Or dered By: Dr. Zurita on 02-23-2023 MCHC (RBC) [Mass/Vol] 32.3 g/dL 32-36 [facility] Platelets bldOrdered By: Dr. Zurita on 02-23-2023 Platelets (Bld) [#/Vol] 186 10*3/uL 150-450 [facility] Whole blood hemoglobin A1c/t otal hemoglobin ratio (mass fraction)Ordered By: Dr. Zurita on 02-23-2023 HbA1c (Bld) [Mass fraction] 6.1 % 3.8-5.6 [facility] Comment on above: Normal < 5.7 % Predi abetic 5.7 - 6.4 % Diabetic >or= 6.5 % Please note range changes. Absolute lymphocyte countOrd ered By: Dr. Zurita on 01-26-2023 Lymphocytes Auto (Unsp spec) [#/Vol] 1.27 10*3/uL 0.83-4.51 [facility] Basophil percentageOrdered B y: Dr. Zurita on 01-26-2023 Basophils/100 WBC (Bld) 0.4 % 0-1 [facility] Eosinophils/100 WBC (Bld) 2.1 % 0-5 [facility] Neutrophils (Bld) [#/Vol] 5.0 10*3/uL 2.0-7.7 [facility] Neutrophils/100 WBC (Bld) 70.6 % 47-70 [facility] WBC (Bld) [#/Vol] 7.0 10*3/uL 4.4-11.0 [facility] Blood erythrocytes count (nu mber/volume)Ordered By: Dr. Zurita on 01-26-2023 RBC (Bld) [#/Vol] 4.30 10*6/uL 4.6-6.2 [facility] Blood hemoglobin measurement (mass/volume)Ordered By: Dr. Zurita on 01-26-2023 Hemoglobin (Bld) [Mass/Vol] 13.7 g/dL 13.0-16.5 [facility] Blood lymphocytes/100 leukoc ytesOrdered By: Dr. Zurita on 01-26-2023 Lymphocytes/100 WBC (Bld) 18.1 % 19-41 [facility] Blood monocytes/100 leukocyt esOrdered By: Dr. Zurita on 01-26-2023 Monocytes/100 WBC (Bld) 7.8 % 0-10 [facility] Blood platelet mean volumeOr dered By: Dr. Zurita on 01-26-2023 Platelet mean volume (Bld) [Entitic vol] 10.5 fL 6.2-12.0 [facility] Determination of erythrocyte mean corpuscular volume (MCV)Ordered By: Dr. Zurita on 01-26-2023 MCV (RBC) [Entitic vol] 95.3 fL 80-94 [facility] Hematocrit Auto (Bld) [Volum e fraction]Ordered By: Dr. Zurita on 01-26-2023 Hematocrit (Bld) [Volume fraction] 41.0 % 40-54 [facility] Laboratory - Hematology and Cell countsOrdered By: Dr. Zurita on 01-26-2023 Erythrocyte distribution width (RBC) [Entitic vol] 47.1 fL 35.1-43.9 [facility] Erythrocyte distribution width (RBC) [Ratio] 13.6 % 11.6-14.6 [facility] Immature granulocytes/100 WBC (Bld) 1.000 % 0.0-0.9 [facility] Comment on above: IG% - Immature Granu locytes (promyelocytes, myelocytes and metamyelocytes) > 1% indicates that a LEFT SHIFT is Present. MCH (RBC) [Entitic mass] 31.9 pg 27.0-32.0 [facility] Nucleated RBC/100 WBC (Bld) [Ratio] 0 % 0-5 [facility] MCHC Auto (RBC) [Mass/Vol]Or dered By: Dr. Zurita on 01-26-2023 MCHC (RBC) [Mass/Vol] 33.4 g/dL 32-36 [facility] Platelets bldOrdered By: Dr. Zurita on 01-26-2023 Platelets (Bld) [#/Vol] 173 10*3/uL 150-450 [facility] Absolute lymphocyte countOrd ered By: Dr. Zurita on 12-29-2022 Lymphocytes Auto (Unsp spec) [#/Vol] 2.30 10*3/uL 0.83-4.51 [facility] Basophil percentageOrdered B y: Dr. Zurita on 12-29-2022 Basophils/100 WBC (Bld) 0.8 % 0-1 [facility] Eosinophils/100 WBC (Bld) 2.3 % 0-5 [facility] Neutrophils (Bld) [#/Vol] 4.6 10*3/uL 2.0-7.7 [facility] Neutrophils/100 WBC (Bld) 59.0 % 47-70 [facility] WBC (Bld) [#/Vol] 7.9 10*3/uL 4.4-11.0 [facility] Blood erythrocytes count (nu mber/volume)Ordered By: Dr. Zurita on 12-29-2022 RBC (Bld) [#/Vol] 4.55 10*6/uL 4.6-6.2 [facility] Blood hemoglobin measurement (mass/volume)Ordered By: Dr. Zurita on 12-29-2022 Hemoglobin (Bld) [Mass/Vol] 14.4 g/dL 13.0-16.5 [facility] Blood lymphocytes/100 leukoc ytesOrdered By: Dr. Zurita on 12-29-2022 Lymphocytes/100 WBC (Bld) 29.3 % 19-41 [facility] Blood monocytes/100 leukocyt esOrdered By: Dr. Zurita on 12-29-2022 Monocytes/100 WBC (Bld) 7.6 % 0-10 [facility] Blood platelet mean volumeOr dered By: Dr. Zurita on 12-29-2022 Platelet mean volume (Bld) [Entitic vol] 10.7 fL 6.2-12.0 [facility] Determination of erythrocyte mean corpuscular volume (MCV)Ordered By: Dr. Zurita on 12-29-2022 MCV (RBC) [Entitic vol] 97.8 fL 80-94 [facility] Hematocrit Auto (Bld) [Volum e fraction]Ordered By: Dr. Zurita on 12-29-2022 Hematocrit (Bld) [Volume fraction] 44.5 % 40-54 [facility] Laboratory - Hematology and Cell countsOrdered By: Dr. Zurita on 12-29-2022 Erythrocyte distribution width (RBC) [Entitic vol] 48.3 fL 35.1-43.9 [facility] Erythrocyte distribution width (RBC) [Ratio] 13.6 % 11.6-14.6 [facility] Immature granulocytes/100 WBC (Bld) 1.000 % 0.0-0.9 [facility] Comment on above: IG% - Immature Granu locytes (promyelocytes, myelocytes and metamyelocytes) > 1% indicates that a LEFT SHIFT is Present. MCH (RBC) [Entitic mass] 31.6 pg 27.0-32.0 [facility] Nucleated RBC/100 WBC (Bld) [Ratio] 0 % 0-5 [facility] MCHC Auto (RBC) [Mass/Vol]Or dered By: Dr. Zurita on 12-29-2022 MCHC (RBC) [Mass/Vol] 32.4 g/dL 32-36 [facility] Platelets bldOrdered By: Dr. Zurita on 12-29-2022 Platelets (Bld) [#/Vol] 205 10*3/uL 150-450 [facility] Absolute lymphocyte countOrd ered By: Dr. Zurita on 12-01-2022 Lymphocytes Auto (Unsp spec) [#/Vol] 1.59 10*3/uL 0.83-4.51 [facility] Basophil percentageOrdered B y: Dr. Zurita on 12-01-2022 Basophils/100 WBC (Bld) 0.4 % 0-1 [facility] Eosinophils/100 WBC (Bld) 1.9 % 0-5 [facility] Neutrophils (Bld) [#/Vol] 5.2 10*3/uL 2.0-7.7 [facility] Neutrophils/100 WBC (Bld) 69.0 % 47-70 [facility] WBC (Bld) [#/Vol] 7.5 10*3/uL 4.4-11.0 [facility] Blood erythrocytes count (nu mber/volume)Ordered By: Dr. Zurita on 12-01-2022 RBC (Bld) [#/Vol] 4.22 10*6/uL 4.6-6.2 [facility] Blood hemoglobin measurement (mass/volume)Ordered By: Dr. Zurita on 12-01-2022 Hemoglobin (Bld) [Mass/Vol] 13.4 g/dL 13.0-16.5 [facility] Blood lymphocytes/100 leukoc ytesOrdered By: Dr. Zurita on 12-01-2022 Lymphocytes/100 WBC (Bld) 21.2 % 19-41 [facility] Blood monocytes/100 leukocyt esOrdered By: Dr. Zurita on 12-01-2022 Monocytes/100 WBC (Bld) 6.4 % 0-10 [facility] Blood platelet adequacy dete ction by light microscopyOrdered By: Dr. Zurita on 12-01-2022 Platelets LM Ql (Bld) [facility] Blood platelet mean volumeOr dered By: Dr. Zurita on 12-01-2022 Platelet mean volume (Bld) [Entitic vol] 11.0 fL 6.2-12.0 [facility] Determination of erythrocyte mean corpuscular volume (MCV)Ordered By: Dr. Zurita on 12-01-2022 MCV (RBC) [Entitic vol] 96.4 fL 80-94 [facility] Hematocrit Auto (Bld) [Volum e fraction]Ordered By: Dr. Zurita on 12-01-2022 Hematocrit (Bld) [Volume fraction] 40.7 % 40-54 [facility] Laboratory - Hematology and Cell countsOrdered By: Dr. Zurita on 12-01-2022 Erythrocyte distribution width (RBC) [Entitic vol] 47.2 fL 35.1-43.9 [facility] Erythrocyte distribution width (RBC) [Ratio] 13.4 % 11.6-14.6 [facility] Immature granulocytes/100 WBC (Bld) 1.100 % 0.0-0.9 [facility] Comment on above: IG% - Immature Granu locytes (promyelocytes, myelocytes and metamyelocytes) > 1% indicates that a LEFT SHIFT is Present. MCH (RBC) [Entitic mass] 31.8 pg 27.0-32.0 [facility] Nucleated RBC/100 WBC (Bld) [Ratio] 0 % 0-5 [facility] MCHC Auto (RBC) [Mass/Vol]Or dered By: Dr. Zurita on 12-01-2022 MCHC (RBC) [Mass/Vol] 32.9 g/dL 32-36 [facility] Platelets bldOrdered By: Dr. Zurita on 12-01-2022 Platelets (Bld) [#/Vol] TNP [facility] Comment on above: Test not performedPl ease note: For this sample, a platelet estimate is provided rather than a platelet count due to platelet clumping. Other parameters associated with this sample are not affected by platelet clumping. If a more accurate platelet count is required, a redraw of the patient will be necessary.Previous reported result: 140 K/[id number] by: MARYANN on 12/01/22:1013 AMENDED REPORT 12/01/22 1013 PLT previously reported as: 140 L K/mm3 Basophil percentageOrdered B y: Dr. Zurita on 11-24-2022 WBC (Bld) [#/Vol] 8.2 10*3/uL 4.4-11.0 [facility] Blood erythrocytes count (nu mber/volume)Ordered By: Dr. Zurita on 11-24-2022 RBC (Bld) [#/Vol] 4.44 10*6/uL 4.6-6.2 [facility] Blood hemoglobin measurement (mass/volume)Ordered By: Dr. Zurita on 11-24-2022 Hemoglobin (Bld) [Mass/Vol] 14.0 g/dL 13.0-16.5 [facility] Blood platelet mean volumeOr dered By: Dr. Zurita on 11-24-2022 Platelet mean volume (Bld) [Entitic vol] 10.9 fL 6.2-12.0 [facility] Determination of erythrocyte mean corpuscular volume (MCV)Ordered By: Dr. Zurita on 11-24-2022 MCV (RBC) [Entitic vol] 94.8 fL 80-94 [facility] Hematocrit Auto (Bld) [Volum e fraction]Ordered By: Dr. Zurita on 11-24-2022 Hematocrit (Bld) [Volume fraction] 42.1 % 40-54 [facility] Laboratory - Hematology and Cell countsOrdered By: Dr. Zurita on 11-24-2022 Erythrocyte distribution width (RBC) [Entitic vol] 45.8 fL 35.1-43.9 [facility] Erythrocyte distribution width (RBC) [Ratio] 13.2 % 11.6-14.6 [facility] MCH (RBC) [Entitic mass] 31.5 pg 27.0-32.0 [facility] MCHC Auto (RBC) [Mass/Vol]Or dered By: Dr. Zurita on 11-24-2022 MCHC (RBC) [Mass/Vol] 33.3 g/dL 32-36 [facility] Platelets bldOrdered By: Dr. Zurita on 11-24-2022 Platelets (Bld) [#/Vol] 190 10*3/uL 150-450 [facility] Absolute lymphocyte countOrd ered By: Dr. Zurita on 11-08-2022 Lymphocytes Auto (Unsp spec) [#/Vol] 1.41 10*3/uL 0.83-4.51 [facility] Basophil percentageOrdered B y: Dr. Zurita on 11-08-2022 Basophils/100 WBC (Bld) 0.4 % 0-1 [facility] Bilirubin [Mass/Vol] 0.30 mg/dL 0.20-1.00 [facility] Comment on above: For patients on eltr ombopag therapy, use of Dimension [place] TBIL is not recommended. Chloride [Moles/Vol] 107 mmol/L 98-107 [facility] Cholesterol [Mass/Vol] 143 mg/dL <200 [facility] Comment on above: <200 mg/dL Desirable 200-240 mg/dL Borderline >240 mg/dL High Risk Eosinophils/100 WBC (Bld) 3.2 % 0-5 [facility] Glucose [Mass/Vol] 108 mg/dL 74-106 [facility] Comment on above: Fasting Glucose resu lt from 100 to 125 mg/dL suggests IMPAIRED HOMEOSTASIS per A.D.A. criteria. Neutrophils (Bld) [#/Vol] 5.2 10*3/uL 2.0-7.7 [facility] Neutrophils/100 WBC (Bld) 68.8 % 47-70 [facility] Potassium [Moles/Vol] 4.0 mmol/L 3.5-5.1 [facility] Protein [Mass/Vol] 6.4 g/dL 6.4-8.2 [facility] Sodium [Moles/Vol] 140 mmol/L 136-145 [facility] Triglyceride [Mass/Vol] 293 mg/dL <199 [facility] Comment on above: The drugs N-Acetylcy steine and Metamizole may falsely depress this assay.Serum Triglycerides Reference Interval Normal <150 mg/dL Borderline high 150 - 199 mg/dL High 200 - 499 mg/dL Very High > or = 500 mg/dL WBC (Bld) [#/Vol] 7.6 10*3/uL 4.4-11.0 [facility] Blood erythrocytes count (nu mber/volume)Ordered By: Dr. Zurita on 11-08-2022 RBC (Bld) [#/Vol] 4.21 10*6/uL 4.6-6.2 [facility] Blood hemoglobin measurement (mass/volume)Ordered By: Dr. Zurita on 11-08-2022 Hemoglobin (Bld) [Mass/Vol] 13.4 g/dL 13.0-16.5 [facility] Blood lymphocytes/100 leukoc ytesOrdered By: Dr. Zurita on 11-08-2022 Lymphocytes/100 WBC (Bld) 18.7 % 19-41 [facility] Blood monocytes/100 leukocyt esOrdered By: Dr. Zurita on 11-08-2022 Monocytes/100 WBC (Bld) 7.8 % 0-10 [facility] Blood platelet mean volumeOr dered By: Dr. Zurita on 11-08-2022 Platelet mean volume (Bld) [Entitic vol] 10.5 fL 6.2-12.0 [facility] Determination of erythrocyte mean corpuscular volume (MCV)Ordered By: Dr. Zurita on 11-08-2022 MCV (RBC) [Entitic vol] 96.2 fL 80-94 [facility] Hematocrit Auto (Bld) [Volum e fraction]Ordered By: Dr. Zurita on 11-08-2022 Hematocrit (Bld) [Volume fraction] 40.5 % 40-54 [facility] Laboratory - Chemistry and C hemistry - challengeOrdered By: Dr. Zurita on 11-08-2022 ALP [Catalytic activity/Vol] 73 U/L 45-117 [facility] ALT [Catalytic activity/Vol] 47 U/L 16-61 [facility] CO2 [Moles/Vol] 25.0 mmol/L 21.0-32.0 [facility] Cobalamin (Vitamin B12) [Mass/Vol] 598 pg/mL 211-911 [facility] Globulin (S) [Mass/Vol] 3.2 g/dL 2.2-4.2 [facility] Magnesium [Mass/Vol] 2.3 mg/dL 1.6-2.6 [facility] Urea nitrogen/Creatinine [Mass ratio] 17.9 mg/mg 10-20 [facility] Laboratory - Hematology and Cell countsOrdered By: Dr. Zurita on 11-08-2022 Erythrocyte distribution width (RBC) [Entitic vol] 46.0 fL 35.1-43.9 [facility] Erythrocyte distribution width (RBC) [Ratio] 13.0 % 11.6-14.6 [facility] Immature granulocytes/100 WBC (Bld) 1.100 % 0.0-0.9 [facility] Comment on above: IG% - Immature Granu locytes (promyelocytes, myelocytes and metamyelocytes) > 1% indicates that a LEFT SHIFT is Present. MCH (RBC) [Entitic mass] 31.8 pg 27.0-32.0 [facility] Nucleated RBC/100 WBC (Bld) [Ratio] 0 % 0-5 [facility] MCHC Auto (RBC) [Mass/Vol]Or dered By: Dr. Zurita on 11-08-2022 MCHC (RBC) [Mass/Vol] 33.1 g/dL 32-36 [facility] No Panel InformationOrdered By: Dr. Zurita on 11-08-2022 Estimated GFR (MDRD) Amer 90 mL/min >60 [facility] Comment on above: GFR Calc Estimated GFR (MDRD) Non-Af Amer 74 mL/min >60 [facility] Comment on above: Non- GFR Calc Thyroid Stimulating Hormone (TSH) 3.45 uIU/mL 0.358-3.74 [facility] Vitamin D 25-Hydroxy 65.9 ng/mL [facility] Comment on above: Vitamin D 25(OH) Sta tus Range Deficiency <20 ng/mL (50nmol/L) Insufficiency 20 - 30 ng/mL (50 - 75 nmol/L) Sufficiency 30 - 100 ng/mL (75 - 250 nmol/L) Toxicity >100 ng/mL (>250 nmol/L) Platelets bldOrdered By: Dr. Zurita on 11-08-2022 Platelets (Bld) [#/Vol] 183 10*3/uL 150-450 [facility] Serum or plasma albumin federico urement (mass/volume)Ordered By: Dr. Zurita on 11-08-2022 Albumin [Mass/Vol] 3.2 g/dL 3.2-5.0 [facility] Serum or plasma albumin/glob ulin mass ratioOrdered By: Dr. Zurtia on 11-08-2022 Albumin/Globulin [Mass ratio] 1.0 {ratio} 0.9-2.4 [facility] Serum or plasma calcium federico urement (mass/volume)Ordered By: Dr. Zurita on 11-08-2022 Calcium [Mass/Vol] 8.8 mg/dL 8.5-10.1 [facility] Serum or plasma cholesterol in HDL measurement (mass/volume)Ordered By: Dr. Zurita on 11-08-2022 Cholesterol in HDL [Mass/Vol] 32 mg/dL >40 [facility] Comment on above: The drugs N-Acetylcy steine and Metamizole may falsely depress this assay. Reference Range HDL <40 mg/dL Low HDL Cholesterol HDL >or= 60 mg/dL High HDL Cholesterol Serum or plasma cholesterol in VLDL measurement (mass/volume)Ordered By: Dr. Zurita on 11-08-2022 Cholesterol in VLDL [Mass/Vol] 59 mg/dL 5-40 [facility] Serum or plasma creatinine m easurement (mass/volume)Ordered By: Dr. Zurita on 11-08-2022 Creatinine [Mass/Vol] 1.06 mg/dL 0.70-1.30 [facility] Comment on above: The validity of the calculated GFR & GFRAA in patients over 70 years has not been determined. Clinical correlation is essential. Serum or plasma low density lipoprotein (LDL) cholesterol measurement (mass/volume)Ordered By: Dr. Zurita on 11-08-2022 Cholesterol in LDL [Mass/Vol] 52 mg/dL 0-130 [facility] Serum or plasma urea nitroge n measurement (mass/volume)Ordered By: Dr. Zurita on 11-08-2022 Urea nitrogen [Mass/Vol] 19 mg/dL 7-18 [facility] Serum or plasma uric acid me asurement (mass/volume)Ordered By: Dr. Zurita on 11-08-2022 Urate [Mass/Vol] 6.4 mg/dL 3.5-7.2 [facility] Comment on above: The drugs N-Acetylcy steine and Metamizole may falsely depress this assay. Thin prep Papanicolaou smear with manual screeningOrdered By: Dr. Zurita on 11-08-2022 Thin prep Papanicolaou smear with manual screening 17 U/L 15-37 [facility] Thin prep Papanicolaou smear with manual screening 8 5-15 [facility] Whole blood hemoglobin A1c/t otal hemoglobin ratio (mass fraction)Ordered By: Dr. Zurita on 11-08-2022 HbA1c (Bld) [Mass fraction] 6.1 % 3.8-5.6 [facility] Comment on above: Normal < 5.7 % Predi abetic 5.7 - 6.4 % Diabetic >or= 6.5 % Please note range changes. Absolute lymphocyte countOrd ered By: Dr. Zurita on 10-25-2022 Lymphocytes Auto (Unsp spec) [#/Vol] 2.12 10*3/uL 0.83-4.51 [facility] Basophil percentageOrdered B y: Dr. Zurita on 10-25-2022 Basophils/100 WBC (Bld) 0.4 % 0-1 [facility] Eosinophils/100 WBC (Bld) 3.9 % 0-5 [facility] Neutrophils (Bld) [#/Vol] 7.6 10*3/uL 2.0-7.7 [facility] Neutrophils/100 WBC (Bld) 68.8 % 47-70 [facility] WBC (Bld) [#/Vol] 11.0 10*3/uL 4.4-11.0 [facility] Blood erythrocytes count (nu mber/volume)Ordered By: Dr. Zurita on 10-25-2022 RBC (Bld) [#/Vol] 5.10 10*6/uL 4.6-6.2 [facility] Blood hemoglobin measurement (mass/volume)Ordered By: Dr. Zurita on 10-25-2022 Hemoglobin (Bld) [Mass/Vol] 15.9 g/dL 13.0-16.5 [facility] Blood lymphocytes/100 leukoc ytesOrdered By: Dr. Zurita on 10-25-2022 Lymphocytes/100 WBC (Bld) 19.3 % 19-41 [facility] Blood monocytes/100 leukocyt esOrdered By: Dr. Zurita on 10-25-2022 Monocytes/100 WBC (Bld) 7.0 % 0-10 [facility] Blood platelet mean volumeOr dered By: Dr. Zurita on 10-25-2022 Platelet mean volume (Bld) [Entitic vol] 10.7 fL 6.2-12.0 [facility] Determination of erythrocyte mean corpuscular volume (MCV)Ordered By: Dr. Zurita on 10-25-2022 MCV (RBC) [Entitic vol] 96.1 fL 80-94 [facility] Hematocrit Auto (Bld) [Volum e fraction]Ordered By: Dr. Zurita on 10-25-2022 Hematocrit (Bld) [Volume fraction] 49.0 % 40-54 [facility] Laboratory - Hematology and Cell countsOrdered By: Dr. Zurita on 10-25-2022 Erythrocyte distribution width (RBC) [Entitic vol] 47.1 fL 35.1-43.9 [facility] Erythrocyte distribution width (RBC) [Ratio] 13.2 % 11.6-14.6 [facility] Immature granulocytes/100 WBC (Bld) 0.600 % 0.0-0.9 [facility] Comment on above: IG% - Immature Granu locytes (promyelocytes, myelocytes and metamyelocytes) > 1% indicates that a LEFT SHIFT is Present. MCH (RBC) [Entitic mass] 31.2 pg 27.0-32.0 [facility] Nucleated RBC/100 WBC (Bld) [Ratio] 0 % 0-5 [facility] MCHC Auto (RBC) [Mass/Vol]Or dered By: Dr. Zurita on 10-25-2022 MCHC (RBC) [Mass/Vol] 32.4 g/dL 32-36 [facility] Platelets bldOrdered By: Dr. Zurita on 10-25-2022 Platelets (Bld) [#/Vol] 202 10*3/uL 150-450 [facility] CNOVon 02-23-2021 CNOV Office Visit (AGCARDHWW) JOSE FITZGERALD ([id number]) 1955 M Date Time Provider Department 02/23/21 [...] OBSOLETEon 02-16-2021 OBSOLETE Refill (AGCARDPOB) JOSE FITZGERALD ([id number]) 1955 M Date Time Provider Department 02/16/21 [...] Status:Closed by KEVIN TALLEY MD on 02/16/21 [facility] OBSOLETEon 01-20-2021 OBSOLETE Refill (AGCARDPOB) JOSE FITZGERALD ([id number]) 1955 Date Time Provider Department 01/20/21 KEVIN [...] Status:Closed by KEVIN TALLEY MD on 01/20/21 [facility] Susi 12-03-[address] [facility] Telephone (AGCARDPOB ) JOSE FITZGERALD ([id number]) 1955 M Date Time Provider Department 12/03/20 KEVIN TALLEY During your visit today, we recorded the following information about you: Jaz Miller LPN 12/03/2020 3:30 PM Signed Please contact patient and schedule annual appointment. He was las seen 12/19/2019. Thank you! DARIUS Guillory 12/03/2020 3:37 PM Signed I called and s[home with caregiver at alf and she stated that she will call [...] Encounter Status:Closed by JAZ MILLER on 12/03/20 [facility] OBSOLETEon 12-03-2020 OBSOLETE Refill (AGCARDPOB) JOSE FITZGERALD ([id number]) 1955 Date Time Provider Department 12/03/20 KEVIN [...] Status:Closed by KEVIN TALLEY MD on 12/03/20 [facility] Thyroid/Parathyroidon 04- 23-2018 US Thyroid/Parathyroid Patient Name: JOSE DU Ultrasound Exam Date/Time 02/26/2018 13:11:13 EDT Exam US Parathyroid Ordering Physician MD CHAPIS BIJAN Accession Number [id number] CPT4 Codes 19622 () Reason For Exam Nontoxic multinodular goiter [...] Transcribed Date and Time: 02/26/2018 4:13 Normal [facility] Vital Signs Date Time Vital Sign Value Performing Clinician Cheryl lake 02-23-2021 11:04-0400 Body height 182.9 cm [employer] Work Phone: [facility] 02-23-2021 11:04-0400 Body weight 85.73 kg [employer] Work Phone: [facility] 02-23-2021 11:04-0400 Diastolic blood pressure 80 mm[Hg] [employer] Work Phone: [facility] 02-23-2021 11:04-0400 Heart rate 80 /min [employer] Work Phone: [facility] 02-23-2021 11:04-0400 Respiratory rate 18 /min [employer] Work Phone: [facility] 02-23-2021 11:04-0400 SaO2% (BldA) [Mass fraction] 97 % Kevin Talley Work Phone: [facility] 02-23-2021 11:040 Systolic blood pressure 112 mm[Hg] Kevin Talley Work Phone: [facility] Encounters Encounter Date Encounter Type Care Provider Facility Start: 03-25-2025 End: 03-25-2025 ambulatory [facility] Facility:[facility] Start: 02-25-2025 End: 02-25-[address] Lynn Zurita MD [facility] Work Phone: Start: 02-25-2025 End: 02-25-[address] [facility] Work Phone: Start: 02-25-[address] [facility] Work Phone: Start: 02-25-2025 End: 02-25-2025 ambulatory Lynnluke Zurita Facility:[facility] Start: 02-14-2025 ambulatory Lynn Antonalberta Facility:[facility] Start: 02-14-[address] [facility] Work Phone: Start: 02-06-2025 [facility]ulatory [facility] Start: 02-06-[address] [facility] Work Phone: Start: 02-05-2025 End: 02-05-[address] Lynn Zurita MD [facility] Work Phone: Start: 02-05-2025 End: 02-05-[address] [facility] Work Phone: Start: 02-05-[address] [facility] Work Phone: Start: 02-05-2025 End: 02-05-2025 ambulatory Lynn Gudla OLS Facility:[facility] Start: 01-28-2025 End: 01-28-[address] Lynn Zurita MD [facility] Work Phone: Start: 01-28-2025 End: 01-28-[address] [facility] Work Phone: Start: 01-28-2025 End: 01-28-2025 ambulatory Lynn Gudla Facility:[facility] Start: 12-30-2024 ambulatory Lynn Gudla Facility:[facility] Start: 12-30-[address] [facility] Work Phone: Start: 12-02-2024 ambulatory Lynn Gudla Facility:[facility] Start: 12-02-[address] [facility] Work Phone: Start: 11-12-2024 ambulatory Lynn Gudla Facility:[facility] Start: 11-12-[address] [facility] Work Phone: Start: 11-04-2024 ambulatory Lynn Gudla Facility:[facility] Start: 11-04-[address] [facility] Work Phone: Start: 10-14-2024 End: 10-14-2024 ambulatory Lynn Gudla OLS Facility:[facility] Start: 10-07-2024 End: 10-07-2024 ambulatory Lynn Gudla OLS Facility:[facility] Start: 09-09-2024 End: 09-09-2024 ambulatory Lynn Gudla Facility:[facility] Start: 08-12-2024 End: 08-12-2024 ambulatory Lynn Gudla Facility:[facility] Start: 07-22-2024 End: 07-22-2024 ambulatory [facility] Facility:[facility] Start: 07-15-2024 End: 07-15-[facility] Start: 06-17-2024 End: 06-17-2024 ambulatory [facility] Gudla Facility:[facility] Start: 05-26-2024 ambulatory [facility] Gud[facility] Facility:[facility] Start: 05-17-2024 End: 05-17-2024 [facility] Start: 04-19-2024 End: 04-19-2024 [facility] Start: 02-23-2024 Registered [facility] Work Phone: Start: 01-25-2024 End: 01-25-2024 ambulatory [facility] Work Phone: Start: 01-25-2024 End: 01-25-2024 Departed Referred [facility] Work Phone: Start: 12-28-2023 End: 12-28-2023 ambulatory [facility] Work Phone: Start: 12-28-2023 End: 12-28-2023 Departed [facility]erred [facility] Work Phone: Start: 12-28-2023 Registered [facility] Work Phone: Start: 12-01-2023 End: 12-01-2023 ambulatory [facility] Work Phone: Start: 12-01-2023 End: 12-01-2023 Departed Referred [facility] Work Phone: Start: 11-30-2023 End: 11-30-2023 ambulatory [facility] Work Phone: Start: 11-30-2023 End: 11-30-2023 Departed Referred [facility] Work Phone: Start: 11-30-2023 Registered [facility] Work Phone: Start: 11-02-2023 End: 11-02-2023 ambulatory [facility] Work Phone: Start: 11-02-2023 End: 11-02-2023 Departed [facility]erred [facility] Work Phone: Start: 10-05-2023 End: 10-05-2023 ambulatory [facility] Work Phone: Start: 10-05-2023 End: 10-05-2023 Departed Referred [facility] Work Phone: Start: 10-05-2023 Registered [facility]erred [facility] Work Phone: Start: 10-02-2023 End: 10-02-2023 ambulatory [facility] Work Phone: Start: 10-02-2023 End: 10-02-2023 Patient encounter procedure [facility] Work Phone: Start: 09-11-2023 End: 09-11-2023 ambulatory [facility] Work Phone: Start: 09-11-2023 End: 09-11-2023 Departed [facility]erred [facility] Work Phone: Start: 09-07-2023 End: 09-07-2023 ambulatory [facility] Work Phone: Start: 09-07-2023 End: 09-07-2023 Departed [facility]erred [facility] Work Phone: Start: 09-07-2023 Registered [facility] Work Phone: Start: 08-21-2023 End: 08-21-2023 ambulatory [facility] Work Phone: Start: 08-21-2023 End: 08-21-2023 Departed [facility]erred [facility] Work Phone: Start: 08-10-2023 End: 08-10-2023 Departed [facility] Work Phone: Start: 07-13-2023 End: 07-13-2023 ambulatory [facility] Work Phone: Start: 07-13-2023 End: 07-13-2023 Departed [facility]erred [facility] Work Phone: Start: 07-13-2023 Registered Referred [facility] Work Phone: Start: 06-27-2023 End: 06-27-2023 ambulatory [facility] Work Phone: Start: 06-27-2023 End: 06-27-2023 Departed [facility]erred [facility] Work Phone: Start: 06-27-2023 Registered [facility] Work Phone: Start: 06-26-2023 End: 06-26-2023 Departed [facility] Work Phone: Start: 06-26-2023 Registered [facility]erred [facility] Work Phone: Start: 06-19-2023 End: 06-19-2023 ambulatory [facility] Work Phone: Start: 06-19-2023 End: 06-19-2023 Departed [facility] Work Phone: Start: 06-19-2023 Registered [facility]erred [facility] Work Phone: Start: 06-15-2023 End: 06-15-2023 ambulatory [facility] Work Phone: Start: 06-15-2023 End: 06-15-2023 Departed [facility] Work Phone: Start: 06-15-2023 Registered Referred [facility] Work Phone: Start: 05-18-2023 End: 05-18-2023 ambulatory [facility] Work Phone: Start: 05-18-2023 End: 05-18-2023 Departed [facility]erred [facility] Work Phone: Start: 05-18-2023 Registered Referred [facility] Work Phone: Start: 04-20-2023 End: 04-20-2023 ambulatory [facility] Work Phone: Start: 04-20-2023 End: 04-20-2023 Departed [facility] Work Phone: Start: 03-23-2023 End: 03-23-2023 ambulatory [facility] Work Phone: Start: 03-23-2023 End: 03-23-2023 Departed [facility]erred [facility] Start: 02-23-2023 Registered [facility] Start: 01-26-2023 End: 01-26-2023 ambulatory [facility] Work Phone: Start: 01-26-2023 End: 01-26-2023 Departed [facility] Start: 12-29-2022 End: 12-29-2022 Departed [facility] Start: 12-01-2022 End: 12-01-2022 Departed [facility] Start: 12-01-2022 Registered [facility] Start: 11-24-2022 End: 11-24-2022 ambulatory [facility] Work Phone: Start: 11-24-2022 End: 11-24-2022 Departed [facility] Start: 11-24-2022 Registered [facility] Start: 11-08-2022 End: 11-08-2022 Departed [facility] Start: 10-25-2022 End: 10-25-2022 ambulatory [facility] Work Phone: Start: 10-25-2022 End: 10-25-2022 Departed [facility] Start: 01-11-2022 Refill Kevin Talley MD Work Phone: [facility] Comment on above: Refill Request Start: 02-23-2021 End: 02-23-2021 Patient encounter procedure Kevin Talley Work Phone: [facility] Comment on above: 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 Jamar Zurita MD Start: 10-02-2023 CT of abdomen and pe lvis without contrast Start: 06-19-2023 Urine culture Plan of Treatment Date Care Activity Detail Author Start: 11-06-2021 ADVANCE DIRECTIVE DISCUSSION ADVANCE DIRECTIVE DISCUSSION [facility] Start: 07-07-2021 Influenza vaccination [facility] Start: 12-19-2020 BP CONTROLLED (<130/80) BP CONTROLLE D (<130/80) [facility] Start: 07-07-2020 Influenza vaccination INFLUENZA (#1) [facility] Start: 2020 ADVANCE DIRECTIVE DISCUSSION ADVANCE DIRECTIVE DISCUSSION [facility] Start: 2020 PNEUMOVAX AGE 65 AND OVER WITH 5YR LOOKBACK (#1) PNEUMOVAX AGE 65 AND OVER WITH 5YR LOOKBACK (#1) [facility] Start: 09-01-2018 DIABETES SCREEN DIABETES SCREEN [facility] Start: 2010 PROSTATE CANCER SCRE ENING DISCUSSION PROSTATE CANCER SCREENING DISCUSSION [facility] Start: 2005 Screening for malign ant neoplasm of colon [facility] Start: 2005 SHINGRIX VACCINE (1 of 2) SHINGRIX V ACCINE (1 of 2) [facility] Start: 2000 COLOGUARD (FIT-DNA) COLOGUARD (FIT-D NA) [facility] Start: 2000 Colonoscopy COLONOSCOPY [facility] Start: 2000 COLORECTAL CANCER SCREENING COLORECTAL CANCER SCREENING [facility] Start: [address] COLONOGRAPHY [facility] Start: 2000 FECAL OCCULT BLOOD FECAL OCCULT BLOO D [facility] Start: 2000 SIGMOIDOSCOPY SIGMOIDOSCOPY [facility] Start: 1990 LIPID SCREEN LIPID SCREEN [facility] Start: 1974 Urine microalbumin profile DTAP,TDAP ,TD (1 - Tdap) [facility] Start: 1973 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 HEAV[employer]QUIPMENT VENTURA DISEASE VISIT ANNUAL PCP TEAM CHRONIC DISEASE VISIT [facility] Start: 1973 BP CONTROLLED (<130/80) BP CONTROLLE D (<130/80) [facility] Start: 1973 Hepatitis B surface antibody level LDL CHOLESTEROL [facility] Start: 1973 HEPATITIS C SCREENING HEPATITIS C SC REENING [facility] Start: 1973 HIV SCREENING HIV SCREENING [facility] Start: 1973 SPIROMETRY SPIROMETRY [facility] Start: 1967 Adult depression scr eening assessment DEPRESSION SCREENING [facility] Start: 1960 COVID-19 VACCINE (1) COVID-19 VACCIN E (1) [facility] Start: 1955 ABDOMINAL AORTIC ANE URYSM SCREENING ABDOMINAL AORTIC ANEURYSM SCREENING [facility] Payers Date Payer Category Payer Self-pay 2024 Unknown [id number] Unknown [id number] 2020 Medicare [id number] 2016 Medicare [id number] Medicare [id number] Private Health Insurance Unknown [id number] 2.16.8 [id number] Unknown [id number] 2.16.8 [id number] Unknown [id number] 2.16.8 [id number] Unknown [id number] 2.16.8 [id number] Unknown [id number] 2.16.8 [id number] Unknown [id number] 2.16.8 [id number] Unknown [id number] 2.16.8 [id number] Unknown [id number] 2.16.8 [id number] Unknown [id number] 2.16.8 [id number] Unknown [id number] 2.16.8 [id number] Unknown [id number] 2.16.8 [id number] Unknown [id number] 2.16.8 [id number] Unknown [id number] 2.16.8 [id number] Unknown [id number] 2.16.8 [id number] Unknown [id number] 2.16.8 [id number] Unknown [id number] 2.16.8 [id number] Unknown [id number] 2.16.8 [id number] Unknown [id number] 2.16.8 [id number] Unknown [id number] 2.16.8 [id number] Social History Date Type Detail Facility Start: 12-19-2019 End: 02-23-2021 Tobacco smoking status MNIS Former smoker [facility] End: 11-06-2010 History of tobacco use Current smoker [facility] Start: 12-19-2019 End: 02-23-2021 Tobacco use and exposure Never used [facility] Start: 12-19-2019 End: 02-23-2021 Alcohol intake Current non-drinker of alcohol (finding) [facility] Start: 1955 Sex Assigned At [facility] Exposure to SARS-CoV -2 (event) Not sure [facility] Start: 1955 Sex Assigned At Male [facility] Tobacco smoking stat us MNIS Unknown if ever smoked [facility] Work Phone: Start: 02-20-2025 End: 02-26-2025 Sex Male (finding) [facility] Note 01-11-2022 Telephone Encounter - Jaz Miller [...] Jaz Miller LPN documented in this encounter [facility] Progress note 02-23-2021 Note Date & Type Note Facility 02-23-2021 Note HNO ID: [id number] Author: Kevin Talley Service: ? 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 He is accompanied by his case management rn. He comes today for a follow-up appointment. He denies chest pain, shortness of breath, orthopnea, cough, edema, palpitations, PND, lightheadedness or syncope. He has been doing well. He climbs 3 flights of stairs at his alf at least 3 times a day without any difficulty. He also rides his bike/scooter without any cardiac symptoms. At today's visit he is accompanied by his case management rn. Patient denies any chest pain shortness of [...] unknown reason has come to establish a emergency manager having not seen anybody since his initial event in 2011. He is accompanied by his case management rn. He comes today for a follow-up appointment. He denies chest pain, shortness of breath, orthopnea, cough, edema, palpitations, PND, lightheadedness or syncope. He has been doing well. He climbs 3 flights of stairs at his alf at least 3 times a day without any difficulty. He also rides his bike/scooter without any cardiac symptoms. At today's visit he is accompanied by his case management rn. Patient denies any chest pain shortness of [...] any cardiac complaints. As per the case management rn he has not been noted to have any decrease in his exercise tolerance and goes about his day-to-day activities. He is to continue Plavix beta-blockers and statins. Annual lipid panel being monitored by his PCP. 2. Cardiomyopathy ICD10: I25.5 To continue beta-blockers and NIECY inhibitor's in the current dose. Patient appears euvolemic. CHF core measures emphasized with him case management rn. Given underlying psychiatric issues he was found not to be a suitable candidate for ICD. 3. Nonsustained VT ICD 10: I47.2 Patient has had no malignant arrhythmias since his index hospitalization in 2011. He has been off amiodarone since then. Kevin Talley MD documented in this encounter [facility] Instructions 02-23-2021 Patient Instructions Note Date [...] Katiuska Zhou CMA documented in this encounter [facility] Evaluation note Note Date & Type Note Facility Evaluation note Diagnosis Coronary artery disease involving [place] coronary artery of [place] heart without angina pectoris- Primary Ischemic cardiomyopathy Other specified forms of chronic ischemic heart disease documented in this encounter [facility] Evaluation note Note Date & Type Note Facility Evaluation note No assessment information availa ble [facility] Work Phone: Reason for referral (narrative) Note Date & Type Note Facility Reason for referral (narrative) No reason for referral information available [facility] Work Phone: Summary Purpose Family History No Family History Records FoundNo Family History Records FoundNo Family History Records FoundNo Family History Records FoundNo Family History Records Found Advance Directives No Advanced Directives Records FoundNo Advanced Directives Records FoundNo Advanced Directives Records FoundNo Advanced Directives Records FoundNo Advanced Directives Records Found Chief Complaint and Reason for Visit Chief Complaint [facility] Chief Complaint [facility] Chief Complaint S[facility] Chief Complaint SEN[facility] LIVING LABWORK [facility] WORK [facility] LABWORK [facility] LABWORK Chief Complaint SENIOR LIVING LABWORK [facility] WORK [facility] WORK [facility] WORK LABWORK [facility] WORK [facility] WORK [facility] WORK Chief Complaint S[facility] LABWORK [facility] WORK [facility] WORK [facility] WORK [facility] WORK Chief Complaint S[facility] LABWORK [facility] WORK [facility] WORK [facility] WORK [facility] WORK [facility] LABWORK [facility] Chief Complaint S[facility] K [facility] LABWORK [facility] WORK [facility] WORK [facility] WORK [facility] WORK [facility] LABWORK Chief Complaint S[facility] K LABWORK [facility] WORK [facility] WORK [facility] WORK [facility] WORK S[facility] LABWORK [facility] LABWORK Chief Complaint S[facility] K LABWORK [facility] WORK [facility] WORK [facility] WORK [facility] WORK [facility] LABWORK ABD PAIN WEIGHT LOSS [facility] Chief Complaint S[facility] LABWORK ABD PAIN WEIGHT LOSS [facility] Chief Complaint S[facility]IVING LABWORK [facility] LABWORK ABD PAIN WEIGHT LOSS [facility]WORK [facility] WORK [facility] Chief Complaint S[facility] K LABWORK ABD PAIN WEIGHT LOSS [facility] WORK [facility] WORK S[facility] LAB[facility] Chief Complaint ABD PAIN WEIGHT LOSS [facility] WORK [facility]WORK [facility] Chief Complaint ABD PAIN WEIGHT LOSS [facility] WORK [facility] LABWORK Chief Complaint S[facility] K [facility] LABWORK [facility] Chief Complaint Admit Date [facility] November 04 5:00am [facility] November 12, 2024 5:00am LABWORK December 30, 2024 5:00am [facility] January 28, 2025 5 :00am Chief Complaint Admit Date [facility] November 04 5:00am [facility] November 12, 2024 5:00am LABWORK December 30, 2024 5:00am [facility] January 28, 2025 5 :00am [facility] February 05, 2025 5: 00am Additional Source Comments (unrecognized sect ion and content) No Status Records FoundNo Status Records FoundNo Status Records FoundNo Status Records FoundNo Status Records Found INFORMATION SOURCE (unrecogn ized section and content) DATE CREATED AUTHOR 04/25/2018 [facility] [facility] DATE CREATED AUTHOR AUTHOR'S ORGANIZ ATION [facility] DATE CREATED AUTHOR AUTHOR'S ORGANIZ ATION 04/26/2018 [facility] [facility] [employer] DATE CREATED AUTHOR AUTHOR'S ORGANIZ ATION 02/26/2021 [facility] DATE CREATED AUTHOR AUTHOR'S ORGANNICOLAS ATION 04/10/2025 [facility] Source Comments (unrecognize d section and content) In the event this informatio n is protected by the Federal Confidentiality of Alcohol and Drug Abuse Patient Records regulations: The Federal rules restrict any use of the information to criminally investigate or prosecute any alcohol or drug abuse patient.[facility] event this information is protected by the Federal Confidentiality of Alcohol and Drug Abuse Patient Records regulations: The Federal rules restrict any use of the information to criminally investigate or prosecute any alcohol or drug abuse patient.[facility] the event this information is protected by the Federal Confidentiality of Alcohol and Drug Abuse Patient Records regulations: The Federal rules restrict any use of the information to criminally investigate or prosecute any alcohol or drug abuse patient.[facility] Reason for Visit (unrecogniz ed section and content) Reason Comments Appointment Reason Comments CARD Follow Up Annual Reason Comments Refill Request Telephone Encounter - Dian Alexandre - 12/03/2020 3:36 PM ESTTelephone Encounter - Jaz Miller - 12/03/2020 3:29 PM EST Miscellaneous Notes (unrecog nized section and content) I called and s[home with caregiver at alf and she stated that she will call [...] Pr ovider, Attending Provider, Referring Provider Active Showroom Executive Director Relationship Specialty [place] [address] PCP - General Family Practice 02/23/21 Team [...] BE BASED ON THE PRIMARY CLINICAL RECORDS. [facility] [employer] [facility]. provides no warranty or guarantee of the accuracy or completeness of information in this document.
[2025-04-14 09:13] LABS: ALB/GLOB Ratio 1.8 RATIO (0.9-2.4); AST(SGOT) 38 U/L (<=37); Alanine Aminotransfer ALT/SGPT 60 U/L (<=46); Albumin, Serum 4.1 g/dL (3.4-4.8); Alkaline Phosphatase 73 U/L (40-129); Anion Gap 12 (5-15); BUN 15 mg/dL (4-19); BUN/Creat Ratio 17.2 RATIO (10-20); Calcium,Total 8.6 mg/dL (7.6-11.0); Carbon Dioxide 22.1 mmol/L (21.0-32.0); Chloride 106 mmol/L (98-108); Cholesterol 142 mg/dL (<=200); Creatinine, Serum 0.89 mg/dL (0.70-1.20); EST Glomerular Filtration Rate 92 (>60); Globulin 2.2 g/dL (2.2-4.2); Glucose 128 mg/dL (70-99); High Density Lipoprotein 28 mg/dL; Low Density Lipoprotein Calc. 56 mg/dL; Potassium 4.3 mmol/L (3.3-5.1); Protein, Total 6.3 g/dL (5.9-8.4); Sodium Level 141 mmol/L (133-145); Total Bilirubin 0.36 mg/dL (0.00-1.30); Triglycerides 290 mg/dL; Uric Acid 6.5 mg/dL (3.5-7.2); Very Low Density Lipoprotein 58 mg/dL (5-40); cholesterol:hdl ratio screen 5.07
== END ==
LOC: OLS.SWAL 05:00
PROVIDERS: PCP Internal Medicine; Visit Provider Internal Medicine
DX: I10 Essential (primary) hypertension (principal); E78.5 Hyperlipidemia, unspecified; I25.10 Atherosclerotic heart disease of native coronary artery without angina pectoris
CPT/HCPCS: 36415; 80053; 80061; 84443; 84550

== ENCOUNTER → 2025-04-23 | Outpatient (REF) | payer MEDICARE, SELFPAY ==
--- OUTSIDE RECORDS SUMMARY | 2025-04-23 04:12 | XMS RPT_ITS | CCD ---
Author Organization [facility] ion [facility] Care Team Providers Care Certified Drug Counselor Name Role Phone ZMEILI Unavailable Unavailable Dy, Bertrand Unavailable Unavailable Dy, Bertrand Unavailable Unavailable SARAH ROB Unavailable Unavailable [facility] Unavailable Unavailable MAYANK, KEVIN Unavailable Unavailable MAYANK, KEVIN Unavailable Unavailable ESMER PILLAI Unavailable Unavailable Esmer Pillai (Phlebotomy Services Technician.Field Operations Manager) Primary Care Pr ovider Soo Montesinos Primary Care Provider [phone] Dr. Lynn Zurita MD Primary Care Provider UnaDr. Lynn Manzanares MD Attending Provider Unavaila ble Gudla, Lynn Primary Care Unavailable Gudla Lynn KHANNA Attending Unavailable Gudla Lisa KHANNAyothi Referring Unavailable Gudla, Lynn Primary Care Unavailable Gudla Lynn KHANNA Attending Unavailable Gudla Lynn KHANNA Referring Unavailable Gudla, [...] Lynn KHANNA Attending Unavailable Gudla Lynn KHANNA Attending Unavailable Gudla, [...] Attending Unavailable Gudla, Lynn Primary Care Unavailable Parminder GARCIA, Dr. Bailey Primary Care Provider Tomas Zurita MD, Dr. Bailey Attending Provider Unavaila ble Allergies Allergy Classification Reported Allergen(s) Allergy Type Date of Onset Reaction(s) Facility Penicillins (antibiotic) (1 source) Penicillins Drug Allergy 6 Other: See Comments [facility] (3 sources) Penicillins; Translations: [PENICILLINS] Propensity to adverse reactions (disorder) 6 Other: See Comments [facility] Repository Medications Completed/Discontinued Medications Medication Drug Class(es) Dates Sig (Normalized) Sig (Original) allopurinol 100 mg oral tablet (2 sources) Xanthine Oxidase Inhibitor Start: 02-01-2021 take 1 tablet by mouth once daily allopurinol (ZYLOPRIM) 100 mg tablet Take 1 tablet by mouth once daily. 0 02/01/2021 Active Comment on above: Take 1 tablet by jasen once daily. ARIPiprazole 20 mg oral tablet [...] GIVE 1 TABLET BY MOUTH TWICE DAILY (8P) 180 tablet 3 12/19/2019 12/03/2020 Discontinued Comment on above: GIVE 1 TABLET BY JASEN TH TWICE DAILY (8P) Take 1 tablet by jasen th twice daily with meals. 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, [address] Albumin/Globulin [Mass ratio] 1.8 {ratio} Normal 0.9-2.4 [facility] Comment on above: Order Comment: CLEAN CATCH Performed By: #### L 100.0500, L400.0001, M100.2200, L500.4050 #### [facility] [address] [place], [address] ALK PHOS 73 U/L Normal 40-129 [facility] Comment on above: Order Comment: CLEAN CATCH Performed By: #### L 100.0500, L400.0001, M100.2200, L500.4050 #### [facility] [address] [place], [address] ALT [Catalytic activity/Vol] 60 U/L High <=46 [facility] Comment on above: Order Comment: CLEAN CATCH Performed By: #### L 100.0500, L400.0001, M100.2200, L500.4050 #### [facility] [address] [place], [address] AST [Catalytic activity/Vol] 38 U/L Normal <=37 [facility] Comment on above: Order Comment: CLEAN CATCH Performed By: #### L 100.0500, L400.0001, M100.2200, L500.4050 #### [facility] [address] [place], [address] Bilirubin [Mass/Vol] 0.36 mg/dL Normal 0.00-1.30 [facility] Comment on above: Order Comment: CLEAN CATCH Performed By: #### L 100.0500, L400.0001, M100.2200, L500.4050 #### [facility] [address] [place], [address] BUN/CRE 17.2 RATIO Normal 10-20 [facility] Comment on above: Order Comment: CLEAN CATCH Performed By: #### L 100.0500, L400.0001, M100.2200, L500.4050 #### [facility] [address] [place], [address] Calcium [Mass/Vol] 8.6 mg/dL Normal 7.6-11.0 [facility] Comment on above: Order Comment: CLEAN CATCH Performed By: #### L 100.0500, L400.0001, M100.2200, L500.4050 #### [facility] [address] [place], [address] Chloride [Moles/Vol] 106 mmol/L Normal 98-108 [facility] Comment on above: Order Comment: CLEAN CATCH Performed By: #### L 100.0500, L400.0001, M100.2200, L500.4050 #### [facility] [address] [place], [address] CO2 [Moles/Vol] 22.1 mmol/L Normal 21.0-32.0 [facility] Comment on above: Order Comment: CLEAN CATCH Performed By: #### L 100.0500, L400.0001, M100.2200, L500.4050 #### [facility] [address] [place], [address] Creatinine [Mass/Vol] 0.89 mg/dL Normal 0.70-1.20 [facility] Comment on above: Order Comment: CLEAN CATCH Performed By: #### L 100.0500, L400.0001, M100.2200, L500.4050 #### [facility] [address] [place], [address] GAP 12 Normal 5-15 [facility] Comment on above: Order Comment: CLEAN CATCH Performed By: #### L 100.0500, L400.0001, M100.2200, L500.4050 #### [facility] [address] [place], [address] GFR/1.73 sq M.predicted among non-blacks MDRD (S/P/Bld) [Vol rate/Area] 92 mL/min/{1.73_m2} Normal >60 [facility] Comment on above: Order Comment: CLEAN CATCH Result Comment: mL/m in/1.73m2 CKD-EPI Creatinine Equation (2020) Performed By: #### L 100.0500, L400.0001, M100.2200, L500.4050 #### [facility] [address] [place], [address] Globulin (S) [Mass/Vol] 2.2 g/dL Normal 2.2-4.2 [facility] Comment on above: Order Comment: CLEAN CATCH Performed By: #### L 100.0500, L400.0001, M100.2200, L500.4050 #### [facility] [address] [place], [address] Glucose [Mass/Vol] 128 mg/dL High 70-99 [facility] Comment on above: Order Comment: CLEAN CATCH Performed By: #### L 100.0500, L400.0001, M100.2200, L500.4050 #### [facility] [address] [place], [address] Potassium [Moles/Vol] 4.3 mmol/L Normal 3.3-5.1 [facility] Comment on above: Order Comment: CLEAN CATCH Performed By: #### L 100.0500, L400.0001, M100.2200, L500.4050 #### [facility] [address] [place], [address] Sodium [Moles/Vol] 141 mmol/L Normal 133-145 [facility] Comment on above: Order Comment: CLEAN CATCH Performed By: #### L 100.0500, L400.0001, M100.2200, L500.4050 #### [facility] [address] [place], [address] T PROT 6.3 g/dL Normal 5.9-8.4 [facility] Comment on above: Order Comment: CLEAN CATCH Performed By: #### L 100.0500, L400.0001, M100.2200, L500.4050 #### [facility] [address] [place], [address] Urea nitrogen [Mass/Vol] 15 mg/dL Normal 4-19 [facility] Comment on above: Order Comment: CLEAN CATCH Performed By: #### L 100.0500, L400.0001, M100.2200, L500.4050 #### [facility] [address] [place], [address] Lipid Profileon 2025 CHOL:HDL 5.07 Normal [facility] Comment on above: Order Comment: CLEAN CATCH Performed By: #### L 100.0500, L400.0001, M100.2200, L500.4050 #### [facility] [address] [place], [address] Cholesterol [Mass/Vol] 142 mg/dL Normal <=200 [facility] Comment on above: Order Comment: CLEAN CATCH Result Comment: Chol esterol level, Desirable <200 mg/dL Borderline high cholesterol 200-239 mg/dL High cholesterol >=240 mg/dL Recommendations of the NCEP Adult Treatment Panel for the following risk-cutoff thresholds for the [place] population. Performed By: #### L 100.0500, L400.0001, M100.2200, L500.4050 #### [facility] [address] [place], [address] Cholesterol in HDL [Mass/Vol] 28 mg/dL Low [facility] Comment on above: Order Comment: CLEAN CATCH Result Comment: Comfort onal Cholesterol Education Program (NCEP) guidelines: <40 mg/dL: Low HDL-cholesterol (major risk factor for CHD) >= 60 mg/dL: High HDL-cholesterol (negative risk factor for CHD) HDL-cholesterol is affected by a number of factors, e.g. smoking, exercise, hormones, sex and age. Performed By: #### L 100.0500, L400.0001, M100.2200, L500.4050 #### [facility] [address] [place], [address] Cholesterol in LDL [Mass/Vol] 56 mg/dL Normal [facility] Comment on above: Order Comment: CLEAN CATCH Result Comment: Bord nzmfwf=682-272 mg/dL Higher Jofv=461 mg/dL or greater Performed By: #### L 100.0500, L400.0001, M100.2200, L500.4050 #### [facility] [address] [place], [address] Cholesterol in VLDL [Mass/Vol] 58 mg/dL High 5-40 [facility] Comment on above: Order Comment: CLEAN CATCH Performed By: #### L 100.0500, L400.0001, M100.2200, L500.4050 #### [facility] [address] [place], [address] Triglyceride [Mass/Vol] 290 mg/dL High [facility] Comment on above: Order Comment: CLEAN CATCH Result Comment: The drugs N-Acetylcysteine and Metamizole may falsely depress this assay. Normal range: <150 mg/dL Borderline High: 150-199 mg/dL High: 200-499 mg/dL Very High: >500 mg/dL Performed By: #### L 100.0500, L400.0001, M100.2200, L500.4050 #### [facility] [address] [place], [place], [id number] Thyroid Stim Hormone (TSH)on 2025 TSH 4.240 uIU/mL High 0.300-4.200 [facility] Comment on above: Order Comment: CLEAN CATCH Performed By: #### L 100.0500, L400.0001, M100.2200, L500.4050 #### [facility] [address] [place], [place], [address] Uric Acidon 2025 URIC 6.5 mg/dL Normal 3.5-7.2 [facility] Comment on above: Order Comment: CLEAN CATCH Result Comment: The drugs N-Acetylcysteine and Metamizole may falsely depress this assay. Performed By: #### L 100.0500, L400.0001, M100.2200, L500.4050 #### [facility] [address] [place], [place], [address] Absolute lymphocyte countOrd ered By: Lynn Zurita on 03-25-2025 Lymphocytes Auto (Unsp spec) [#/Vol] 2.11 10*3/uL 0.83-4.51 [facility] Absolute neutrophil countOrd ered By: Lynn Zurita on 03-25-2025 Neutrophils (Bld) [#/Vol] 6.1 10*3/uL 2.0-7.7 [facility] Automated lymphocyte count a s percentage of total leukocytesOrdered By: Lynn Zurita on 03-25-2025 Lymphocytes/100 WBC Auto (Unsp spec) 22.4 % 19-41 [facility] Basophil percentageOrdered B y: Lynn Zurita on 03-25-2025 Basophils/100 WBC (Bld) 0.5 % 0-1 [facility] CBC W/Diff, Automatedon 03-07 Absolute Lymph 2.11 X10 3/uL Normal 0.83-4.51 [facility] Comment on above: Performed By: #### L 100.0500, L400.0001, M100.2200, L500.4050 #### [facility] [address] [place], [address] Absolute Neut 6.1 X10 3/uL Normal 2.0-7.7 [facility] Comment on above: Performed By: #### L 100.0500, L400.0001, M100.2200, L500.4050 #### [facility] [address] [place], [address] Basophils/100 WBC (Bld) 0.5 % Normal 0-1 [facility] Comment on above: Performed By: #### L 100.0500, L400.0001, M100.2200, L500.4050 #### [facility] [address] [place], [address] Eosinophils/100 WBC (Bld) 2.3 % Normal 0-5 [facility] Comment on above: Performed By: #### L 100.0500, L400.0001, M100.2200, L500.4050 #### [facility] [address] [place], [address] Erythrocyte distribution width (RBC) [Ratio] 12.9 % Normal 11.6-14.6 [facility] Comment on above: Performed By: #### L 100.0500, L400.0001, M100.2200, L500.4050 #### [facility] [address] [place], [address] Hematocrit (Bld) [Volume fraction] 41.3 % Normal 40-54 [facility] Comment on above: Performed By: #### L 100.0500, L400.0001, M100.2200, L500.4050 #### [facility] [address] [place], [address] Hemoglobin (Bld) [Mass/Vol] 14.1 g/dL Normal 13.0-16.5 [facility] Comment on above: Performed By: #### L 100.0500, L400.0001, M100.2200, L500.4050 #### [facility] [address] [place], [address] IG% 1.600 High 0.0-0.9 [facility] Comment on above: Result Comment: IG% - Immature Granulocytes (promyelocytes, myelocytes and metamyelocytes) > 1% indicates that a LEFT SHIFT is Present. Performed By: #### L 100.0500, L400.0001, M100.2200, L500.4050 #### [facility] [address] [place], [address] Lymphocytes/100 WBC (Bld) 22.4 % Normal 19-41 [facility] Comment on above: Performed By: #### L 100.0500, L400.0001, M100.2200, L500.4050 #### [facility] [address] [place], [address] MCH (RBC) [Entitic mass] 32.3 pg High 27.0-32.0 [facility] Comment on above: Performed By: #### L 100.0500, L400.0001, M100.2200, L500.4050 #### [facility] [address] [place], [address] MCHC (RBC) [Mass/Vol] 34.1 g/dL Normal 32-36 [facility] Comment on above: Performed By: #### L 100.0500, L400.0001, M100.2200, L500.4050 #### [facility] [address] [place], [address] MCV (RBC) [Entitic vol] 94.5 fL High 80-94 [facility] Comment on above: Performed By: #### L 100.0500, L400.0001, M100.2200, L500.4050 #### [facility] [address] [place], [address] Monocytes/100 WBC (Bld) 8.7 % Normal 0-10 [facility] Comment on above: Performed By: #### L 100.0500, L400.0001, M100.2200, L500.4050 #### [facility] [address] [place], [address] Neutrophils/100 WBC (Bld) 64.5 % Normal 47-70 [facility] Comment on above: Performed By: #### L 100.0500, L400.0001, M100.2200, L500.4050 #### [facility] [address] [place], [address] Nucleated RBC (Bld) [#/Vol] 0 10*3/uL Normal 0-5 [facility] Comment on above: Performed By: #### L 100.0500, L400.0001, M100.2200, L500.4050 #### [facility] [address] [place], [address] Platelet mean volume (Bld) [Entitic vol] 10.9 fL Normal 6.2-12.0 [facility] Comment on above: Performed By: #### L 100.0500, L400.0001, M100.2200, L500.4050 #### [facility] [address] [place], [address] Platelets (Bld) [#/Vol] 178 10*3/uL Normal 150-450 [facility] Comment on above: Performed By: #### L 100.0500, L400.0001, M100.2200, L500.4050 #### [facility] [address] [place], [address] RBC (Bld) [#/Vol] 4.37 10*6/uL Low 4.6-6.2 [facility] Comment on above: Performed By: #### L 100.0500, L400.0001, M100.2200, L500.4050 #### [facility] [address] [place], [address] RDW SD 44.4 fl High 35.1-43.9 [facility] Comment on above: Performed By: #### L 100.0500, L400.0001, M100.2200, L500.4050 #### [facility] [address] [place], [address] WBC (Bld) [#/Vol] 9.4 10*3/uL Normal 4.4-11.0 [facility] Comment on above: Performed By: #### L 100.0500, L400.0001, M100.2200, L500.4050 #### [facility] [address] [place], [address] Eosinophil percentageOrdered By: Lynn Zurita on 03-25-2025 Eosinophils/100 WBC (Bld) 2.3 % 0-5 [facility] Erythrocyte distribution wid th ratioOrdered By: Lynn Zurita on 03-25-2025 Erythrocyte distribution width (RBC) [Ratio] 12.9 % 11.6-14.6 [facility] Erythrocyte distribution wid th standard deviationOrdered By: Lynn Zurita on 03-25-2025 Erythrocyte distribution width (RBC) [Ratio] 44.4 fl High 35.1-43.9 [facility] Hematocrit Auto (Bld) [Volum e fraction]Ordered By: Lynn Zurita on 03-25-2025 Hematocrit (Bld) [Volume fraction] 41.3 % 40-54 [facility] Hemoglobin measurementOrdere d By: Lynn Zurita on 03-25-2025 Hemoglobin (Bld) [Mass/Vol] 14.1 g/dL 13.0-16.5 [facility] Immature granulocytes/100 WB C Auto (Bld)Ordered By: Lynn Zurita on 03-25-2025 Immature granulocytes/100 WBC (Bld) 1.600 % High 0.0-0.9 [facility] Comment on above: IG% - Immature Granu locytes (promyelocytes, myelocytes and metamyelocytes) > 1% indicates that a LEFT SHIFT is Present. MCV (mean corpuscular volume ) determinationOrdered By: Lynn Zurita on 03-25-2025 MCV (RBC) [Entitic vol] 94.5 fL High 80-94 [facility] Mean corpuscular hemoglobin (MCH) determinationOrdered By: Lynn Zurita on 03-25-2025 MCH (RBC) [Entitic mass] 32.3 pg High 27.0-32.0 [facility] Mean corpuscular hemoglobin concentration (MCHC) determinationOrdered By: Lynn Zurita on 03-25-2025 MCHC (RBC) [Mass/Vol] 34.1 g/dL 32-36 [facility] Mean platelet volume determi nationOrdered By: Lynn Zurita on 03-25-2025 Platelet mean volume (Bld) [Entitic vol] 10.9 fL 6.2-12.0 [facility] Monocyte percentageOrdered B y: Lynn Zurita on 03-25-2025 Monocytes/100 WBC (Bld) 8.7 % 0-10 [facility] Neutrophil percentageOrdered By: Lynn Zurita on 03-25-2025 Neutrophils/100 WBC (Bld) 64.5 % 47-70 [facility] Nucleated red blood cell per centageOrdered By: Lynn Zurita on 03-25-2025 Nucleated RBC/100 WBC (Bld) [Ratio] 0 % 0-5 [facility] Platelet countOrdered By: Radames Zurita on 03-25-2025 Platelets (Bld) [#/Vol] 178 10*3/uL 150-450 [facility] RBC Auto (Bld) [#/Vol]Ordere d By: Lynn Zurita on 03-25-2025 RBC (Bld) [#/Vol] 4.37 10*6/uL Low 4.6-6.2 [facility] White blood cell (WBC) count Ordered By: Lynn Zurita on 03-25-2025 WBC (Bld) [#/Vol] 9.4 10*3/uL 4.4-11.0 [facility] Absolute lymphocyte countOrd ered By: Lynn Waltonalbertjesus manuel on 02-25-2025 Lymphocytes Auto (Unsp spec) [#/Vol] 1.82 10*3/uL 0.83-4.51 [facility] Absolute neutrophil countOrd ered By: Lynn Waltonalbertjesus manuel on 02-25-2025 Neutrophils (Bld) [#/Vol] 4.0 10*3/uL 2.0-7.7 [facility] Automated lymphocyte count a s percentage of total leukocytesOrdered By: Lynn Antonjennifer on 02-25-2025 Lymphocytes/100 WBC Auto (Unsp spec) 27.3 % 19-41 [facility] Basophil percentageOrdered B y: Lynnashlyn Waltonalbertjesus manuel on 02-25-2025 Basophils/100 WBC (Bld) 0.9 % 0-1 [facility] CBC W/Diff, Automatedon 02-05 Absolute Lymph 1.82 X10 3/uL Normal 0.83-4.51 [facility] Comment on above: Order Comment: 101 Performed By: #### L 100.0500, L400.0001, M100.2200, L500.4050 #### [facility] [address] [place], [address] Absolute Neut 4.0 X10 3/uL Normal 2.0-7.7 [facility] Comment on above: Order Comment: 101 Performed By: #### L 100.0500, L400.0001, M100.2200, L500.4050 #### [facility] [address] [place], [address] Basophils/100 WBC (Bld) 0.9 % Normal 0-1 [facility] Comment on above: Order Comment: 101 Performed By: #### L 100.0500, L400.0001, M100.2200, L500.4050 #### [facility] [address] [place], [address] Eosinophils/100 WBC (Bld) 3.0 % Normal 0-5 [facility] Comment on above: Order Comment: 101 Performed By: #### L 100.0500, L400.0001, M100.2200, L500.4050 #### [facility] [address] [place], [address] Erythrocyte distribution width (RBC) [Ratio] 13.1 % Normal 11.6-14.6 [facility] Comment on above: Order Comment: 101 Performed By: #### L 100.0500, L400.0001, M100.2200, L500.4050 #### [facility] [address] [place], [address] Hematocrit (Bld) [Volume fraction] 39.0 % Low 40-54 [facility] Comment on above: Order Comment: 101 Performed By: #### L 100.0500, L400.0001, M100.2200, L500.4050 #### [facility] [address] [place], [address] Hemoglobin (Bld) [Mass/Vol] 13.7 g/dL Normal 13.0-16.5 [facility] Comment on above: Order Comment: 101 Performed By: #### L 100.0500, L400.0001, M100.2200, L500.4050 #### [facility] [address] [place], [address] IG% 1.400 High 0.0-0.9 [facility] Comment on above: Order Comment: 101 Result Comment: IG% - Immature Granulocytes (promyelocytes, myelocytes and metamyelocytes) > 1% indicates that a LEFT SHIFT is Present. Performed By: #### L 100.0500, L400.0001, M100.2200, L500.4050 #### [facility] [address] [place], [address] Lymphocytes/100 WBC (Bld) 27.3 % Normal 19-41 [facility] Comment on above: Order Comment: 101 Performed By: #### L 100.0500, L400.0001, M100.2200, L500.4050 #### [facility] [address] [place], [address] MCH (RBC) [Entitic mass] 32.4 pg High 27.0-32.0 [facility] Comment on above: Order Comment: 101 Performed By: #### L 100.0500, L400.0001, M100.2200, L500.4050 #### [facility] [address] [place], [address] MCHC (RBC) [Mass/Vol] 35.1 g/dL Normal 32-36 [facility] Comment on above: Order Comment: 101 Performed By: #### L 100.0500, L400.0001, M100.2200, L500.4050 #### [facility] [address] [place], [address] MCV (RBC) [Entitic vol] 92.2 fL Normal 80-94 [facility] Comment on above: Order Comment: 101 Performed By: #### L 100.0500, L400.0001, M100.2200, L500.4050 #### [facility] [address] [place], [address] Monocytes/100 WBC (Bld) 8.1 % Normal 0-10 [facility] Comment on above: Order Comment: 101 Performed By: #### L 100.0500, L400.0001, M100.2200, L500.4050 #### [facility] [address] [place], [address] Neutrophils/100 WBC (Bld) 59.3 % Normal 47-70 [facility] Comment on above: Order Comment: 101 Performed By: #### L 100.0500, L400.0001, M100.2200, L500.4050 #### [facility] [address] [place], [address] Nucleated RBC (Bld) [#/Vol] 0 10*3/uL Normal 0-5 [facility] Comment on above: Order Comment: 101 Performed By: #### L 100.0500, L400.0001, M100.2200, L500.4050 #### [facility] [address] [place], [address] Platelet mean volume (Bld) [Entitic vol] 10.7 fL Normal 6.2-12.0 [facility] Comment on above: Order Comment: 101 Performed By: #### L 100.0500, L400.0001, M100.2200, L500.4050 #### [facility] [address] [place], [address] Platelets (Bld) [#/Vol] 165 10*3/uL Normal 150-450 [facility] Comment on above: Order Comment: 101 Performed By: #### L 100.0500, L400.0001, M100.2200, L500.4050 #### [facility] [address] [place], [address] RBC (Bld) [#/Vol] 4.23 10*6/uL Low 4.6-6.2 [facility] Comment on above: Order Comment: 101 Performed By: #### L 100.0500, L400.0001, M100.2200, L500.4050 #### [facility] [address] [place], [address] RDW SD 44.2 fl High 35.1-43.9 [facility] Comment on above: Order Comment: 101 Performed By: #### L 100.0500, L400.0001, M100.2200, L500.4050 #### [facility] [address] [place], [address] WBC (Bld) [#/Vol] 6.7 10*3/uL Normal 4.4-11.0 [facility] Comment on above: Order Comment: 101 Performed By: #### L 100.0500, L400.0001, M100.2200, L500.4050 #### [facility] [address] [place], [address] Eosinophil percentageOrdered By: Lynn Zurita on 02-25-2025 Eosinophils/100 WBC (Bld) 3.0 % 0-5 [facility] Erythrocyte distribution wid th (RBC) [Ratio]Ordered By: Lynnluke Zurita on 02-25-2025 Erythrocyte distribution width (RBC) [Entitic vol] 44.2 fL High 35.1-43.9 [facility] Erythrocyte distribution wid th ratioOrdered By: Lynnluke Zurita on 02-25-2025 Erythrocyte distribution width (RBC) [Ratio] 13.1 % 11.6-14.6 [facility] Erythrocyte distribution wid th standard deviationOrdered By: Lynnluke Zurita on 02-25-2025 Erythrocyte distribution width (RBC) [Ratio] 44.2 fl High 35.1-43.9 [facility] Hematocrit Auto (Bld) [Volum e fraction]Ordered By: Lynn Zurita on 02-25-2025 Hematocrit (Bld) [Volume fraction] 39.0 % Low 40-54 [facility] Hemoglobin measurementOrdere d By: Lynn Zurita on 02-25-2025 Hemoglobin (Bld) [Mass/Vol] 13.7 g/dL 13.0-16.5 [facility] Immature granulocytes/100 WB C Auto (Bld)Ordered By: Lynn Zurita on 02-25-2025 Immature granulocytes/100 WBC (Bld) 1.400 % High 0.0-0.9 [facility] Comment on above: IG% - Immature Granu locytes (promyelocytes, myelocytes and metamyelocytes) > 1% indicates that a LEFT SHIFT is Present. Lymphocytes Auto (Unsp spec) [#/Vol]Ordered By: Lynn Zurita on 02-25-2025 Lymphocytes (Bld) [#/Vol] 1.82 10*3/uL 0.83-4.51 [facility] Lymphocytes/100 WBC Auto (Un sp spec)Ordered By: Lynn Zurita on 02-25-2025 Lymphocytes/100 WBC (Bld) 27.3 % 19-41 [facility] MCV (mean corpuscular volume ) determinationOrdered By: Lynn Zurita on 02-25-2025 MCV (RBC) [Entitic vol] 92.2 fL 80-94 [facility] Mean corpuscular hemoglobin (MCH) determinationOrdered By: Lynn Zurita on 02-25-2025 MCH (RBC) [Entitic mass] 32.4 pg High 27.0-32.0 [facility] Mean corpuscular hemoglobin concentration (MCHC) determinationOrdered By: Lynn Zurita on 02-25-2025 MCHC (RBC) [Mass/Vol] 35.1 g/dL 32-36 [facility] Mean platelet volume determi nationOrdered By: Lynn Zurita on 02-25-2025 Platelet mean volume (Bld) [Entitic vol] 10.7 fL 6.2-12.0 [facility] Monocyte percentageOrdered B y: Lynn Zurita on 02-25-2025 Monocytes/100 WBC (Bld) 8.1 % 0-10 [facility] Neutrophil percentageOrdered By: Lynn Zurita on 02-25-2025 Neutrophils/100 WBC (Bld) 59.3 % 47-70 [facility] Nucleated red blood cell per centageOrdered By: Lynn Zurita on 02-25-2025 Nucleated RBC/100 WBC (Bld) [Ratio] 0 % 0-5 [facility] Platelet countOrdered By: Radames Zurita on 02-25-2025 Platelets (Bld) [#/Vol] 165 10*3/uL 150-450 [facility] RBC Auto (Bld) [#/Vol]Ordere d By: Lynn Zurita on 02-25-2025 RBC (Bld) [#/Vol] 4.23 10*6/uL Low 4.6-6.2 [facility] White blood cell (WBC) count Ordered By: Lynn Zurita on 02-25-2025 WBC (Bld) [#/Vol] 6.7 10*3/uL 4.4-11.0 [facility] Anion gap in Serum or Plasma Ordered By: Lynn Zurita on 02-14-2025 Anion gap [Moles/Vol] 14 mmol/L - [facility] BUN/creatinine ratioOrdered By: Lynn Zurita on 02-14-2025 Urea nitrogen/Creatinine [Mass ratio] 17.5 mg/mg - [facility] Basic Metabolic Profile (BMP )on 02-14-2025 BUN/CRE 17.5 RATIO Normal - [facility] Comment on above: Order Comment: 101 Performed By: #### L 100.0500, L400.0001, M100.2200, L500.4050 #### [facility] [address] [place], [address] Calcium [Mass/Vol] 9.1 mg/dL Normal 7.6-11.0 [facility] Comment on above: Order Comment: 101 Performed By: #### L 100.0500, L400.0001, M100.2200, L500.4050 #### [facility] [address] [place], [address] Chloride [Moles/Vol] 107 mmol/L Normal 98-108 [facility] Comment on above: Order Comment: 101 Performed By: #### L 100.0500, L400.0001, M100.2200, L500.4050 #### [facility] [address] [place], [address] CO2 [Moles/Vol] 20.5 mmol/L Low 21.0-32.0 [facility] Comment on above: Order Comment: 101 Performed By: #### L 100.0500, L400.0001, M100.2200, [id number] #### [facility] [address] [place], [address] Creatinine [Mass/Vol] 0.92 mg/dL Normal 0.70-1.20 [facility] Comment on above: Order Comment: 101 Performed By: #### L 100.0500, L400.0001, M100.2200, [id number] #### [facility] [address] [place], [address] GAP 14 Normal 5-15 [facility] Comment on above: Order Comment: 101 Performed By: #### L 100.0500, L400.0001, M100.2200, [id number] #### [facility] [address] [place], [address] GFR/1.73 sq M.predicted among non-blacks MDRD (S/P/Bld) [Vol rate/Area] 90 mL/min/{1.73_m2} Normal >60 [facility] Comment on above: Order Comment: 101 Result Comment: mL/m in/1.73m2 CKD-EPI Creatinine Equation (2020) Performed By: #### L 100.0500, L400.0001, M100.2200, L500.4050 #### [facility] [address] [place], [address] Glucose [Mass/Vol] 166 mg/dL High 70-99 [facility] Comment on above: Order Comment: 101 Performed By: #### L 100.0500, L400.0001, M100.2200, L500.4050 #### [facility] [address] [place], [address] Potassium [Moles/Vol] 4.2 mmol/L Normal 3.3-5.1 [facility] Comment on above: Order Comment: 101 Performed By: #### L 100.0500, L400.0001, M100.2200, L500.4050 #### [facility] [address] [place], [address] Sodium [Moles/Vol] 141 mmol/L Normal 133-145 [facility] Comment on above: Order Comment: 101 Performed By: #### L 100.0500, L400.0001, M100.2200, L500.4050 #### [facility] [address] [place], [address] Urea nitrogen [Mass/Vol] 16 mg/dL Normal 4-19 [facility] Comment on above: Order Comment: 101 Performed By: #### L 100.0500, L400.0001, M100.2200, L500.4050 #### [facility] [address] [place], [address] Carbon dioxide, total [Moles /volume] in Central venous bloodOrdered By: Lynn Zurita on 02-14-2025 CO2 [Moles/Vol] 20.5 mmol/L Low 21.0-32.0 [facility] Chloride assayOrdered By: Radames Zurita on 02-14-2025 Chloride [Moles/Vol] 107 mmol/L 98-108 [facility] GFR/1.73 sq M.predicted tyra g non-blacks MDRD (S/P/Bld) [Vol rate/Area]Ordered By: Lynn Zurita on 02-14-2025 Estimated GFR (MDRD) Non-Af Amer 90 >60 [facility] Comment on above: mL/min/1.73m2 CKD-EP I Creatinine Equation (2020) Glomerular filtration rate ( GFR) estimation/1.73 sq m using serum, plasma, or whole bOrdered By: Lynn Zurita on 02-14-2025 GFR/1.73 sq M.predicted among non-blacks MDRD (S/P/Bld) [Vol rate/Area] 90 mL/min/{1.73_m2} >60 [facility] Comment on above: mL/min/1.73m2 CKD-EP I Creatinine Equation (2020) Hemoglobin A1con 02-14-2025 HbA1c (Bld) [Mass fraction] 7.0 % High <=5.6 [facility] Comment on above: Order Comment: 101 Result Comment: Norm al < 5.7 % Prediabetic 5.7 - 6.4 % Diabetic >or= 6.5 % Please note range changes. Performed By: #### L 100.0500, L400.0001, M100.2200, L500.4050 #### [facility] [place], [address] Hemoglobin A1c percentageOrd ered By: Lynn Zurita on 02-14-2025 HbA1c (Bld) [Mass fraction] 7.0 % High <5.7 [facility] Comment on above: Normal < 5.7 % Predi abetic 5.7 - 6.4 % Diabetic >or= 6.5 % Please note range changes. Potassium (Unsp spec) [Mass/ Vol]Ordered By: Lynn Zurita on 02-14-2025 Potassium [Moles/Vol] 4.2 mmol/L 3.3-5.1 [facility] Potassium measurement (mass/ volume)Ordered By: Lynn Zurita on 02-14-2025 Potassium (Unsp spec) [Mass/Vol] 4.2 mmol/L 3.3-5.1 [facility] Serum creatinine measurement (mass/volume)Ordered By: Lynn Zurita on 02-14-2025 Creatinine [Mass/Vol] 0.92 mg/dL 0.70-1.20 [facility] Serum glucose measurement (m ass/volume)Ordered By: Lynn Zurita on 02-14-2025 Glucose [Mass/Vol] 166 mg/dL High 70-99 [facility] Serum or plasma calcium federico urement (mass/volume)Ordered By: Lynn Zurita on 02-14-2025 Calcium [Mass/Vol] 9.1 mg/dL 7.6-11.0 [facility] Serum or plasma urea nitroge n measurement (mass/volume)Ordered By: Lynn Zurita on 02-14-2025 Urea nitrogen [Mass/Vol] 16 mg/dL 4-19 [facility] Sodium levelOrdered By: Moshe Zurita on 02-14-2025 Sodium [Moles/Vol] 141 mmol/L 133-145 [facility] Urine Cultureon 02-07-2025 URC Below infection leve l. Mixed Gram Positive Organisms [place] Count <1000 [facility] Mixed contaminants. Submit a new specimen if indicated. Normal [facility] Comment on above: Performed By: #### L 100.0500, L400.0001, M100.2200, L500.4050 #### [facility] [address] [place], [address] Anion gap in Serum or Plasma Ordered By: Lynn Zurita on 02-06-2025 Anion gap [Moles/Vol] 17 mmol/L High 5-15 [facility] BUN/creatinine ratioOrdered By: Lynn Zurita on 02-06-2025 Urea nitrogen/Creatinine [Mass ratio] 23.0 mg/mg High 10-20 [facility] Bilirubin, totalOrdered By: Lynn Zurita on 02-06-2025 Bilirubin [Mass/Vol] 0.35 mg/dL 0.00-1.30 [facility] CBC-Complete Blood Cnt No Di ffon 02-06-2025 Erythrocyte distribution width (RBC) [Ratio] 13.2 % Normal 11.6-14.6 [facility] Comment on above: Order Comment: CLEAN CATCH Performed By: #### L 100.0500, L400.0001, M100.2200, L500.4050 #### [facility] [address] [place], [address] Hematocrit (Bld) [Volume fraction] 40.0 % Normal 40-54 [facility] Comment on above: Order Comment: CLEAN CATCH Performed By: #### L 100.0500, L400.0001, M100.2200, L500.4050 #### [facility] [address] [place], [address] Hemoglobin (Bld) [Mass/Vol] 13.7 g/dL Normal 13.0-16.5 [facility] Comment on above: Order Comment: CLEAN CATCH Performed By: #### L 100.0500, L400.0001, M100.2200, L500.4050 #### [facility] [address] [place], [address] MCH (RBC) [Entitic mass] 32.4 pg High 27.0-32.0 [facility] Comment on above: Order Comment: CLEAN CATCH Performed By: #### L 100.0500, L400.0001, M100.2200, L500.4050 #### [facility] [address] [place], [address] MCHC (RBC) [Mass/Vol] 34.3 g/dL Normal 32-36 [facility] Comment on above: Order Comment: CLEAN CATCH Performed By: #### L 100.0500, L400.0001, M100.2200, L500.4050 #### [facility] [address] [place], [address] MCV (RBC) [Entitic vol] 94.6 fL High 80-94 [facility] Comment on above: Order Comment: CLEAN CATCH Performed By: #### L 100.0500, L400.0001, M100.2200, L500.4050 #### [facility] [address] [place], [address] Platelet mean volume (Bld) [Entitic vol] 11.0 fL Normal 6.2-12.0 [facility] Comment on above: Order Comment: CLEAN CATCH Performed By: #### L 100.0500, L400.0001, M100.2200, L500.4050 #### [facility] [address] [place], [address] Platelets (Bld) [#/Vol] 180 10*3/uL Normal 150-450 [facility] Comment on above: Order Comment: CLEAN CATCH Performed By: #### L 100.0500, L400.0001, M100.2200, L500.4050 #### [facility] [address] [place], [address] RBC (Bld) [#/Vol] 4.23 10*6/uL Low 4.6-6.2 [facility] Comment on above: Order Comment: CLEAN CATCH Performed By: #### L 100.0500, L400.0001, M100.2200, L500.4050 #### [facility] [address] [place], [address] RDW SD 45.1 fl High 35.1-43.9 [facility] Comment on above: Order Comment: CLEAN CATCH Performed By: #### L 100.0500, L400.0001, M100.2200, L500.4050 #### [facility] [address] [place], [address] WBC (Bld) [#/Vol] 8.3 10*3/uL Normal 4.4-11.0 [facility] Comment on above: Order Comment: CLEAN CATCH Performed By: #### L 100.0500, L400.0001, M100.2200, L500.4050 #### [facility] [address] [place], [address] Carbon dioxide, total [Moles /volume] in Central venous bloodOrdered By: Lynn Zurita on 02-06-2025 CO2 [Moles/Vol] 18.2 mmol/L Low 21.0-32.0 [facility] Chloride assayOrdered By: Radames Zurita on 02-06-2025 Chloride [Moles/Vol] 107 mmol/L 98-108 [facility] Comprehensive Metabolic Prof ilon 02-06-2025 Albumin [Mass/Vol] 4.3 g/dL Normal 3.4-4.8 [facility] Comment on above: Order Comment: CLEAN CATCH Performed By: #### L 100.0500, L400.0001, M100.2200, L500.4050 #### [facility] [address] [place], [address] Albumin/Globulin [Mass ratio] 1.6 {ratio} Normal 0.9-2.4 [facility] Comment on above: Order Comment: CLEAN CATCH Performed By: #### L 100.0500, L400.0001, M100.2200, L500.4050 #### [facility] [address] [place], [address] ALK PHOS 80 U/L Normal 40-129 [facility] Comment on above: Order Comment: CLEAN CATCH Performed By: #### L 100.0500, L400.0001, M100.2200, L500.4050 #### [facility] [address] [place], [address] ALT [Catalytic activity/Vol] 43 U/L Normal <=46 [facility] Comment on above: Order Comment: CLEAN CATCH Performed By: #### L 100.0500, L400.0001, M100.2200, L500.4050 #### [facility] [address] [place], [address] AST [Catalytic activity/Vol] 33 U/L Normal <=37 [facility] Comment on above: Order Comment: CLEAN CATCH Performed By: #### L 100.0500, L400.0001, M100.2200, L500.4050 #### [facility] [address] [place], [address] Bilirubin [Mass/Vol] 0.35 mg/dL Normal 0.00-1.30 [facility] Comment on above: Order Comment: CLEAN CATCH Performed By: #### L 100.0500, L400.0001, M100.2200, L500.4050 #### [facility] [address] [place], [address] BUN/CRE 23.0 RATIO High 10-20 [facility] Comment on above: Order Comment: CLEAN CATCH Performed By: #### L 100.0500, L400.0001, M100.2200, L500.4050 #### [facility] [address] [place], [address] Calcium [Mass/Vol] 8.8 mg/dL Normal 7.6-11.0 [facility] Comment on above: Order Comment: CLEAN CATCH Performed By: #### L 100.0500, L400.0001, M100.2200, L500.4050 #### [facility] [address] [place], [address] Chloride [Moles/Vol] 107 mmol/L Normal 98-108 [facility] Comment on above: Order Comment: CLEAN CATCH Performed By: #### L 100.0500, L400.0001, M100.2200, L500.4050 #### [facility] [address] [place], [address] CO2 [Moles/Vol] 18.2 mmol/L Low 21.0-32.0 [facility] Comment on above: Order Comment: CLEAN CATCH Performed By: #### L 100.0500, L400.0001, M100.2200, L500.4050 #### [facility] [address] [place], [address] Creatinine [Mass/Vol] 1.51 mg/dL High 0.70-1.20 [facility] Comment on above: Order Comment: CLEAN CATCH Performed By: #### L 100.0500, L400.0001, M100.2200, L500.4050 #### [facility] [address] [place], [address] GAP 17 High 5-15 [facility] Comment on above: Order Comment: CLEAN CATCH Performed By: #### L 100.0500, L400.0001, M100.2200, L500.4050 #### [facility] [address] [place], [address] GFR/1.73 sq M.predicted among non-blacks MDRD (S/P/Bld) [Vol rate/Area] 50 mL/min/{1.73_m2} Low >60 [facility] Comment on above: Order Comment: CLEAN CATCH Result Comment: mL/m in/1.73m2 CKD-EPI Creatinine Equation (2020) Performed By: #### L 100.0500, L400.0001, M100.2200, L500.4050 #### [facility] [address] [place], [address] Globulin (S) [Mass/Vol] 2.7 g/dL Normal 2.2-4.2 [facility] Comment on above: Order Comment: CLEAN CATCH Performed By: #### L 100.0500, L400.0001, M100.2200, L500.4050 #### [facility] [address] [place], [address] Glucose [Mass/Vol] 146 mg/dL High 70-99 [facility] Comment on above: Order Comment: CLEAN CATCH Performed By: #### L 100.0500, L400.0001, M100.2200, L500.4050 #### [facility] [address] [place], [address] Potassium [Moles/Vol] 4.2 mmol/L Normal 3.3-5.1 [facility] Comment on above: Order Comment: CLEAN CATCH Performed By: #### L 100.0500, L400.0001, M100.2200, L500.4050 #### [facility] [address] [place], [address] Sodium [Moles/Vol] 142 mmol/L Normal 133-145 [facility] Comment on above: Order Comment: CLEAN CATCH Performed By: #### L 100.0500, L400.0001, M100.2200, L500.4050 #### [facility] [address] [place], [address] T PROT 6.9 g/dL Normal 5.9-8.4 [facility] Comment on above: Order Comment: CLEAN CATCH Performed By: #### L 100.0500, L400.0001, M100.2200, L500.4050 #### [facility] [address] [place], [address] Urea nitrogen [Mass/Vol] 35 mg/dL High 4-19 [facility] Comment on above: Order Comment: CLEAN CATCH Performed By: #### L 100.0500, L400.0001, M100.2200, L500.4050 #### [facility] [address] [place], [address] Erythrocyte distribution wid th (RBC) [Ratio]Ordered By: Lynn Zurita on 02-06-2025 Erythrocyte distribution width (RBC) [Entitic vol] 45.1 fL High 35.1-43.9 [facility] Erythrocyte distribution wid th ratioOrdered By: Lynn Zurita on 02-06-2025 Erythrocyte distribution width (RBC) [Ratio] 13.2 % 11.6-14.6 [facility] Erythrocyte distribution wid th standard deviationOrdered By: Lynn Zurita on 02-06-2025 Erythrocyte distribution width (RBC) [Ratio] 45.1 fl High 35.1-43.9 [facility] GFR/1.73 sq M.predicted tyra g non-blacks MDRD (S/P/Bld) [Vol rate/Area]Ordered By: Lynn Zurita on 02-06-2025 Estimated GFR (MDRD) Non-Af Amer 50 Low >60 [facility] Comment on above: mL/min/1.73m2 CKD-EP I Creatinine Equation (2020) Glomerular filtration rate ( GFR) estimation/1.73 sq m using serum, plasma, or whole bOrdered By: Lynn Zurita on 02-06-2025 GFR/1.73 sq M.predicted among non-blacks MDRD (S/P/Bld) [Vol rate/Area] 50 mL/min/{1.73_m2} Low >60 [facility] Comment on above: mL/min/1.73m2 CKD-EP I Creatinine Equation (2020) Hematocrit Auto (Bld) [Volum e fraction]Ordered By: Lynn Zurita on 02-06-2025 Hematocrit (Bld) [Volume fraction] 40.0 % 40-54 [facility] Hemoglobin measurementOrdere d By: Lynn Zurita on 02-06-2025 Hemoglobin (Bld) [Mass/Vol] 13.7 g/dL 13.0-16.5 [facility] - Chemistry and C hemistry - challengeOrdered By: Lynn Zurita on 02-06-2025 AST [Catalytic activity/Vol] 33 U/L <38 [facility] MCV (mean corpuscular volume ) determinationOrdered By: Lynn Zurita on 02-06-2025 MCV (RBC) [Entitic vol] 94.6 fL High 80-94 [facility] Mean corpuscular hemoglobin (MCH) determinationOrdered By: Lynn Zurita on 02-06-2025 MCH (RBC) [Entitic mass] 32.4 pg High 27.0-32.0 [facility] Mean corpuscular hemoglobin concentration (MCHC) determinationOrdered By: Lynn Zurita on 02-06-2025 MCHC (RBC) [Mass/Vol] 34.3 g/dL 32-36 [facility] Mean platelet volume determi nationOrdered By: Lynn Zurita on 02-06-2025 Platelet mean volume (Bld) [Entitic vol] 11.0 fL 6.2-12.0 [facility] Platelet countOrdered By: Radames Zurita on 02-06-2025 Platelets (Bld) [#/Vol] 180 10*3/uL 150-450 [facility] Potassium (Unsp spec) [Mass/ Vol]Ordered By: Lynn Zurita on 02-06-2025 Potassium [Moles/Vol] 4.2 mmol/L 3.3-5.1 [facility] Potassium measurement (mass/ volume)Ordered By: Lynn Zurita on 02-06-2025 Potassium (Unsp spec) [Mass/Vol] 4.2 mmol/L 3.3-5.1 [facility] RBC Auto (Bld) [#/Vol]Ordere d By: Lynn Zurita on 02-06-2025 RBC (Bld) [#/Vol] 4.23 10*6/uL Low 4.6-6.2 [facility] Serum creatinine measurement (mass/volume)Ordered By: Lynn Zurita on 02-06-2025 Creatinine [Mass/Vol] 1.51 mg/dL High 0.70-1.20 [facility] Serum globulin measurementOr dered By: Lynn Zurita on 02-06-2025 Globulin (S) [Mass/Vol] 2.7 g/dL 2.2-4.2 [facility] Serum glucose measurement (m ass/volume)Ordered By: Lynn Zurita on 02-06-2025 Glucose [Mass/Vol] 146 mg/dL High 70-99 [facility] Serum or plasma alanine yi otransferase (ALT) measurementOrdered By: Lynn Zurita on 02-06-2025 ALT [Catalytic activity/Vol] 43 U/L <47 [facility] Serum or plasma albumin federico urement (mass/volume)Ordered By: Lynn Zurita on 02-06-2025 Albumin [Mass/Vol] 4.3 g/dL 3.4-4.8 [facility] Serum or plasma albumin/glob ulin mass ratioOrdered By: Lynn Zurita on 02-06-2025 Albumin/Globulin [Mass ratio] 1.6 {ratio} 0.9-2.4 [facility] Serum or plasma alkaline ester sphatase measurementOrdered By: Lynn Zurita on 02-06-2025 ALP [Catalytic activity/Vol] 80 U/L 40-129 [facility] Serum or plasma calcium federico urement (mass/volume)Ordered By: Lynn Zurita on 02-06-2025 Calcium [Mass/Vol] 8.8 mg/dL 7.6-11.0 [facility] Serum or plasma urea nitroge n measurement (mass/volume)Ordered By: Lynn Zurita on 02-06-2025 Urea nitrogen [Mass/Vol] 35 mg/dL High 4-19 [facility] Sodium levelOrdered By: Moshe Zurita on 02-06-2025 Sodium [Moles/Vol] 142 mmol/L 133-145 [facility] Total proteinOrdered By: Nano Zurita on 02-06-2025 Protein [Mass/Vol] 6.9 g/dL 5.9-8.4 [facility] White blood cell (WBC) count Ordered By: Lynn Zurita on 02-06-2025 WBC (Bld) [#/Vol] 8.3 10*3/uL 4.4-11.0 [facility] CBC-Complete Blood Cnt No Di ffon 02-05-2025 HCT Normal 40-54 [facility] Comment on above: Order Comment: 101 Result Comment: UTO X2 Performed By: #### L 100.0500, L400.0001, M100.2200, L500.4050 #### [facility] [address] [place], [address] HGB Normal 13.0-16.5 [facility] Comment on above: Order Comment: 101 Result Comment: UTO X2 Performed By: #### L 100.0500, L400.0001, M100.2200, L500.4050 #### [facility] [address] [place], [address] MCH Normal 27.0-32.0 [facility] Comment on above: Order Comment: 101 Result Comment: UTO X2 Performed By: #### L 100.0500, L400.0001, M100.2200, L500.4050 #### [facility] [address] [place], [address] MCHC Normal 32-36 [facility] Comment on above: Order Comment: 101 Result Comment: UTO X2 Performed By: #### L 100.0500, L400.0001, M100.2200, L500.4050 #### [facility] [address] [place], [address] MCV Normal 80-94 [facility] Comment on above: Order Comment: 101 Result Comment: UTO X2 Performed By: #### L 100.0500, L400.0001, M100.2200, L500.4050 #### [facility] [address] [place], [address] PLT Normal 150-450 [facility] Comment on above: Order Comment: 101 Result Comment: UTO X2 Performed By: #### L 100.0500, L400.0001, M100.2200, L500.4050 #### [facility] [address] [place], [address] RBC Normal 4.6-6.2 [facility] Comment on above: Order Comment: 101 Result Comment: UTO X2 Performed By: #### L 100.0500, L400.0001, M100.2200, L500.4050 #### [facility] [address] [place], [address] RDW CV Normal 11.6-14.6 [facility] Comment on above: Order Comment: 101 Result Comment: UTO X2 Performed By: #### L 100.0500, L400.0001, M100.2200, L500.4050 #### [facility] [address] [place], [address] RDW SD Normal 35.1-43.9 [facility] Comment on above: Order Comment: 101 Result Comment: UTO X2 Performed By: #### L 100.0500, L400.0001, M100.2200, L500.4050 #### [facility] [address] [place], [address] WBC Normal 4.4-11.0 [facility] Comment on above: Order Comment: 101 Result Comment: UTO X2 Performed By: #### L 100.0500, L400.0001, M100.2200, L500.4050 #### [facility] [address] [place], [address] Comprehensive Metabolic Prof ilon 02-05-2025 ALB Normal 3.4-4.8 [facility] Comment on above: Order Comment: 101 Result Comment: UTO X2 Performed By: #### L 100.0500, L400.0001, M100.2200, L500.4050 #### [facility] [address] [place], [address] ALK PHOS Normal 40-129 [facility] Comment on above: Order Comment: 101 Result Comment: UTO X2 Performed By: #### L 100.0500, L400.0001, M100.2200, L500.4050 #### [facility] [address] [place], [address] ALT Normal <=46 [facility] Comment on above: Order Comment: 101 Result Comment: UTO X2 Performed By: #### L 100.0500, L400.0001, M100.2200, L500.4050 #### [facility] [address] [place], [address] AST Normal <=37 [facility] Comment on above: Order Comment: 101 Result Comment: UTO X2 Performed By: #### L 100.0500, L400.0001, M100.2200, L500.4050 #### [facility] [address] [place], [address] BUN Normal 4-19 [facility] Comment on above: Order Comment: 101 Result Comment: UTO X2 Performed By: #### L 100.0500, L400.0001, M100.2200, L500.4050 #### [facility] [address] [place], [address] BUN/CRE Normal 10-20 [facility] Comment on above: Order Comment: 101 Result Comment: UTO X2 Performed By: #### L 100.0500, L400.0001, M100.2200, L500.4050 #### [facility] [address] [place], [address] Calcium Normal 7.6-11.0 [facility] Comment on above: Order Comment: 101 Result Comment: UTO X2 Performed By: #### L 100.0500, L400.0001, M100.2200, L500.4050 #### [facility] [address] [place], [address] CL Normal 98-108 [facility] Comment on above: Order Comment: 101 Result Comment: UTO X2 Performed By: #### L 100.0500, L400.0001, M100.2200, [id number] #### [facility] [address] [place], [address] CO2 Normal 21.0-32.0 [facility] Comment on above: Order Comment: 101 Result Comment: UTO X2 Performed By: #### L 100.0500, L400.0001, M100.2200, L500.4050 #### [facility] [address] [place], [address] CREAT,SERUM Normal 0.70-1.20 [facility] Comment on above: Order Comment: 101 Result Comment: UTO X2 Performed By: #### L 100.0500, L400.0001, M100.2200, L500.4050 #### [facility] [address] [place], [address] eGFR Normal >60 [facility] Comment on above: Order Comment: 101 Result Comment: UTO X2 Performed By: #### L 100.0500, L400.0001, M100.2200, [id number] #### [facility] [address] [place], [address] GAP Normal 5-15 [facility] Comment on above: Order Comment: 101 Result Comment: UTO X2 Performed By: #### L 100.0500, L400.0001, M100.2200, [id number] #### [facility] [address] [place], [address] GLU Normal 70-99 [facility] Comment on above: Order Comment: 101 Result Comment: UTO X2 Performed By: #### L 100.0500, L400.0001, M100.2200, L500.4050 #### [facility] [address] [place], [address] Potassium Normal 3.3-5.1 [facility] Comment on above: Order Comment: 101 Result Comment: UTO X2 Performed By: #### L 100.0500, L400.0001, M100.2200, L500.4050 #### [facility] [address] [place], [address] T BILI Normal 0.00-1.30 [facility] Comment on above: Order Comment: 101 Result Comment: UTO X2 Performed By: #### L 100.0500, L400.0001, M100.2200, L500.4050 #### [facility] [address] [place], [address] T PROT Normal 5.9-8.4 [facility] Comment on above: Order Comment: 101 Result Comment: UTO X2 Performed By: #### L 100.0500, L400.0001, M100.2200, L500.4050 #### [facility] [address] [place], [address] Comprehensive Metabolic Profil Normal 133-145 [facility] Comment on above: Order Comment: 101 Result Comment: UTO X2 Performed By: #### L 100.0500, L400.0001, M100.2200, L500.4050 #### [facility] [address] [place], [address] Urinalysis, Completeon 02-05 EPI,SQUAMOUS 0-5 SEEN Normal 0-5 [facility] Comment on above: Order Comment: CLEAN CATCH Performed By: #### L 100.0500, L400.0001, M100.2200, L500.4050 #### [facility] [address] [place], [address] WBC 0-5 SEEN Normal 0-5 [facility] Comment on above: Order Comment: CLEAN CATCH Performed By: #### L 100.0500, L400.0001, M100.2200, L500.4050 #### [facility] [address] [place], [address] BACTERIA 0 SEEN Normal None Seen [facility] Comment on above: Order Comment: CLEAN CATCH Performed By: #### L 100.0500, L400.0001, M100.2200, L500.4050 #### [facility] [address] [place], [address] Mucus Ql (Urine sed) 0 SEEN Normal [facility] Comment on above: Order Comment: CLEAN CATCH Performed By: #### L 100.0500, L400.0001, M100.2200, L500.4050 #### [facility] [address] [place], [address] RBC 0 SEEN Normal 0-5 [facility] Comment on above: Order Comment: CLEAN CATCH Performed By: #### L 100.0500, L400.0001, M100.2200, L500.4050 #### [facility] [address] [place], [address] Bilirubin Test strip Ql (U)O rdered By: Lynn Zurita on 02-04-2025 Bilirubin Ql (U) Negative Negative [facility] Epithelial cells.squamous LM Ql (Urine sed)Ordered By: Lynn Zurita on 02-04-2025 Epithelial cells.squamous LM.HPF (Urine sed) [#/Area] 0 /[HPF] 0-5 [facility] Glucose Ql (U)Ordered By: Radames Zurita on 02-04-2025 Glucose (U) [Mass/Vol] 100 mg/dL High Normal [facility] Ketones Test strip Ql (U)Ord ered By: Lynn Zurita on 02-04-2025 Ketones Ql (U) 15 mg/dl High Negative [facility] Microscopic analysis of urin e for red blood cells (RBC)Ordered By: Lynn Zurita on 02-04-2025 Microscopic analysis of urine for red blood cells (RBC) 0 SEEN /hpf 0-5 [facility] Urine RBC 0 SEEN /hpf 0-5 [facility] Mucus LM Ql (Urine sed)Order ed By: Lynn Zurita on 02-04-2025 Mucus Ql (Urine sed) 0 SEEN /hpf [facility] Nitrite Test strip Ql (U)Ord ered By: Lynn Zurita on 02-04-2025 Nitrite Ql (U) Negative Negative [facility] Protein Test strip Ql (U)Ord ered By: Lynn Zurita on 02-04-2025 Protein Ql (U) 30 mg/dl High Negative [facility] Squamous epithelial cells de tection in urine sediment by light microscopyOrdered By: Lynn Zurita on 02-04-2025 Epithelial cells.squamous LM Ql (Urine sed) 0-5 SEEN /hpf 0-5 [facility] Urine blood detectionOrdered By: Lynn Zurita on 02-04-2025 Urine Occult Blood Negative Negative [facility] Urine clarityOrdered By: Nano Zurita on 02-04-2025 Clarity (U) Clear Clear [facility] Urine color determinationOrd ered By: Lynn Zurita on 02-04-2025 Color (U) Yellow Yellow [facility] Urine cultureOrdered By: Nano Zurita on 02-04-2025 Bacteria identified Cx Nom (U) Positive Abnormal [facility] Urine glucose detectionOrder ed By: Lynn Zurita on 02-04-2025 Glucose Ql (U) 100 mg/dl High Normal [facility] Urine leukocyte esterase det ection by dipstickOrdered By: Lynn Zurita on 02-04-2025 Leukocyte esterase Test strip Ql (U) 25 /ul High Negative [facility] Urine pHOrdered By: Lynn godinez on 02-04-2025 pH (U) 6.0 [pH] 5.0 - 8.0 [facility] Urine sediment bacteria coun t by microscopy (number/high power field)Ordered By: Lynn Zurita on 02-04-2025 Bacteria LM.HPF (Urine sed) [#/Area] 0 /[HPF] None Seen [facility] Urine specific gravity measu rementOrdered By: Lynn Zurita on 02-04-2025 Specific gravity (U) [Rel density] 1.010 1.002-1.030 [facility] Urine urobilinogen measureme ntOrdered By: Lynn Zurita on 02-04-2025 Urobilinogen Ql (U) 1 mg/dl High Normal [facility] Urobilinogen Ql (U)Ordered B y: Lnyn Zurita on 02-04-2025 Urobilinogen (U) [Mass/Vol] 1 mg/dL High Normal [facility] White blood cell countOrdere d By: Lynn Zurita on 02-04-2025 Urine WBC 0-5 SEEN /hpf 0-5 [facility] White blood cell count 0-5 SEEN /hpf 0-5 [facility] Absolute lymphocyte countOrd ered By: Lynn Zurita on 01-28-2025 Lymphocytes Auto (Unsp spec) [#/Vol] 1.71 10*3/uL 0.83-4.51 [facility] Absolute neutrophil countOrd ered By: Lynn Zurita on 01-28-2025 Neutrophils (Bld) [#/Vol] 4.9 10*3/uL 2.0-7.7 [facility] Automated lymphocyte count a s percentage of total leukocytesOrdered By: Lynn Zurita on 01-28-2025 Lymphocytes/100 WBC Auto (Unsp spec) 22.7 % 19-41 [facility] Basophil percentageOrdered B y: Lynn Zurita on 01-28-2025 Basophils/100 WBC (Bld) 0.5 % 0-1 [facility] CBC W/Diff, Automatedon 01-05 Absolute Lymph 1.71 X10 3/uL Normal 0.83-4.51 [facility] Comment on above: Order Comment: CLEAN CATCH Performed By: #### L 100.0500, L400.0001, M100.2200, L500.4050 #### [facility] [address] [place], [address] Absolute Neut 4.9 X10 3/uL Normal 2.0-7.7 [facility] Comment on above: Order Comment: CLEAN CATCH Performed By: #### L 100.0500, L400.0001, M100.2200, L500.4050 #### [facility] [address] [place], [address] Basophils/100 WBC (Bld) 0.5 % Normal 0-1 [facility] Comment on above: Order Comment: CLEAN CATCH Performed By: #### L 100.0500, L400.0001, M100.2200, L500.4050 #### [facility] [address] [place], [address] Eosinophils/100 WBC (Bld) 2.9 % Normal 0-5 [facility] Comment on above: Order Comment: CLEAN CATCH Performed By: #### L 100.0500, L400.0001, M100.2200, L500.4050 #### [facility] [address] [place], [address] Erythrocyte distribution width (RBC) [Ratio] 12.9 % Normal 11.6-14.6 [facility] Comment on above: Order Comment: CLEAN CATCH Performed By: #### L 100.0500, L400.0001, M100.2200, L500.4050 #### [facility] [address] [place], [address] Hematocrit (Bld) [Volume fraction] 41.1 % Normal 40-54 [facility] Comment on above: Order Comment: CLEAN CATCH Performed By: #### L 100.0500, L400.0001, M100.2200, L500.4050 #### [facility] [address] [place], [address] Hemoglobin (Bld) [Mass/Vol] 14.1 g/dL Normal 13.0-16.5 [facility] Comment on above: Order Comment: CLEAN CATCH Performed By: #### L 100.0500, L400.0001, M100.2200, L500.4050 #### [facility] [address] [place], [address] IG% 1.500 High 0.0-0.9 [facility] Comment on above: Order Comment: CLEAN CATCH Result Comment: IG% - Immature Granulocytes (promyelocytes, myelocytes and metamyelocytes) > 1% indicates that a LEFT SHIFT is Present. Performed By: #### L 100.0500, L400.0001, M100.2200, L500.4050 #### [facility] [address] [place], [address] Lymphocytes/100 WBC (Bld) 22.7 % Normal 19-41 [facility] Comment on above: Order Comment: CLEAN CATCH Performed By: #### L 100.0500, L400.0001, M100.2200, L500.4050 #### [facility] [address] [place], [address] MCH (RBC) [Entitic mass] 32.3 pg High 27.0-32.0 [facility] Comment on above: Order Comment: CLEAN CATCH Performed By: #### L 100.0500, L400.0001, M100.2200, L500.4050 #### [facility] [address] [place], [address] MCHC (RBC) [Mass/Vol] 34.3 g/dL Normal 32-36 [facility] Comment on above: Order Comment: CLEAN CATCH Performed By: #### L 100.0500, L400.0001, M100.2200, L500.4050 #### [facility] [address] [place], [address] MCV (RBC) [Entitic vol] 94.1 fL High 80-94 [facility] Comment on above: Order Comment: CLEAN CATCH Performed By: #### L 100.0500, L400.0001, M100.2200, L500.4050 #### [facility] [address] [place], [address] Monocytes/100 WBC (Bld) 7.7 % Normal 0-10 [facility] Comment on above: Order Comment: CLEAN CATCH Performed By: #### L 100.0500, L400.0001, M100.2200, L500.4050 #### [facility] [address] [place], [address] Neutrophils/100 WBC (Bld) 64.7 % Normal 47-70 [facility] Comment on above: Order Comment: CLEAN CATCH Performed By: #### L 100.0500, L400.0001, M100.2200, L500.4050 #### [facility] [address] [place], [address] Nucleated RBC (Bld) [#/Vol] 0 10*3/uL Normal 0-5 [facility] Comment on above: Order Comment: CLEAN CATCH Performed By: #### L 100.0500, L400.0001, M100.2200, L500.4050 #### [facility] [address] [place], [address] Platelet mean volume (Bld) [Entitic vol] 10.9 fL Normal 6.2-12.0 [facility] Comment on above: Order Comment: CLEAN CATCH Performed By: #### L 100.0500, L400.0001, M100.2200, L500.4050 #### [facility] [address] [place], [address] Platelets (Bld) [#/Vol] 192 10*3/uL Normal 150-450 [facility] Comment on above: Order Comment: CLEAN CATCH Performed By: #### L 100.0500, L400.0001, M100.2200, L500.4050 #### [facility] [address] [place], [address] RBC (Bld) [#/Vol] 4.37 10*6/uL Low 4.6-6.2 [facility] Comment on above: Order Comment: CLEAN CATCH Performed By: #### L 100.0500, L400.0001, M100.2200, L500.4050 #### [facility] [address] [place], [address] RDW SD 44.0 fl High 35.1-43.9 [facility] Comment on above: Order Comment: CLEAN CATCH Performed By: #### L 100.0500, L400.0001, M100.2200, L500.4050 #### [facility] [address] [place], [address] WBC (Bld) [#/Vol] 7.5 10*3/uL Normal 4.4-11.0 [facility] Comment on above: Order Comment: CLEAN CATCH Performed By: #### L 100.0500, L400.0001, M100.2200, L500.4050 #### [facility] [address] [place], [address] Eosinophil percentageOrdered By: Lynn Zurita on 01-28-2025 Eosinophils/100 WBC (Bld) 2.9 % 0-5 [facility] Erythrocyte distribution wid th (RBC) [Ratio]Ordered By: Lynn Zurita on 01-28-2025 Erythrocyte distribution width (RBC) [Entitic vol] 44.0 fL High 35.1-43.9 [facility] Erythrocyte distribution wid th ratioOrdered By: Lynn Zurita on 01-28-2025 Erythrocyte distribution width (RBC) [Ratio] 12.9 % 11.6-14.6 [facility] Erythrocyte distribution wid th standard deviationOrdered By: Lynn Zurita on 01-28-2025 Erythrocyte distribution width (RBC) [Ratio] 44.0 fl High 35.1-43.9 [facility] Hematocrit Auto (Bld) [Volum e fraction]Ordered By: Lynn Zurita on 01-28-2025 Hematocrit (Bld) [Volume fraction] 41.1 % 40-54 [facility] Hemoglobin measurementOrdere d By: Lynn Zurita on 01-28-2025 Hemoglobin (Bld) [Mass/Vol] 14.1 g/dL 13.0-16.5 [facility] Immature granulocytes/100 WB C Auto (Bld)Ordered By: Lynn Zurita on 01-28-2025 Immature granulocytes/100 WBC (Bld) 1.500 % High 0.0-0.9 [facility] Comment on above: IG% - Immature Granu locytes (promyelocytes, myelocytes and metamyelocytes) > 1% indicates that a LEFT SHIFT is Present. Lymphocytes Auto (Unsp spec) [#/Vol]Ordered By: Lynn Zurita on 01-28-2025 Lymphocytes (Bld) [#/Vol] 1.71 10*3/uL 0.83-4.51 [facility] Lymphocytes/100 WBC Auto (Un sp spec)Ordered By: Lynn Zurita on 01-28-2025 Lymphocytes/100 WBC (Bld) 22.7 % 19-41 [facility] MCV (mean corpuscular volume ) determinationOrdered By: Lynn Zurita on 01-28-2025 MCV (RBC) [Entitic vol] 94.1 fL High 80-94 [facility] Mean corpuscular hemoglobin (MCH) determinationOrdered By: Lynn Zurita on 01-28-2025 MCH (RBC) [Entitic mass] 32.3 pg High 27.0-32.0 [facility] Mean corpuscular hemoglobin concentration (MCHC) determinationOrdered By: Lynn Zurita on 01-28-2025 MCHC (RBC) [Mass/Vol] 34.3 g/dL 32-36 [facility] Mean platelet volume determi nationOrdered By: Lynn Zurita on 01-28-2025 Platelet mean volume (Bld) [Entitic vol] 10.9 fL 6.2-12.0 [facility] Monocyte percentageOrdered B y: Lynn Zurita on 01-28-2025 Monocytes/100 WBC (Bld) 7.7 % 0-10 [facility] Neutrophil percentageOrdered By: Lynn Zurita on 01-28-2025 Neutrophils/100 WBC (Bld) 64.7 % 47-70 [facility] Nucleated red blood cell per centageOrdered By: Lynn Zurita on 01-28-2025 Nucleated RBC/100 WBC (Bld) [Ratio] 0 % 0-5 [facility] Platelet countOrdered By: Radames Zurita on 01-28-2025 Platelets (Bld) [#/Vol] 192 10*3/uL 150-450 [facility] RBC Auto (Bld) [#/Vol]Ordere d By: Lynn Zurita on 01-28-2025 RBC (Bld) [#/Vol] 4.37 10*6/uL Low 4.6-6.2 [facility] White blood cell (WBC) count Ordered By: Lynn Zurita on 01-28-2025 WBC (Bld) [#/Vol] 7.5 10*3/uL 4.4-11.0 [facility] Absolute lymphocyte countOrd ered By: Lynn Zurita on 12-30-2024 Lymphocytes Auto (Unsp spec) [#/Vol] 1.50 10*3/uL 0.83-4.51 [facility] Absolute neutrophil countOrd ered By: Lynn Zurita on 12-30-2024 Neutrophils (Bld) [#/Vol] 5.5 10*3/uL 2.0-7.7 [facility] Automated lymphocyte count a s percentage of total leukocytesOrdered By: Lynn Zurita on 12-30-2024 Lymphocytes/100 WBC Auto (Unsp spec) 19.0 % 19-41 [facility] Basophil percentageOrdered B y: Lynn Zurita on 12-30-2024 Basophils/100 WBC (Bld) 0.5 % 0-1 [facility] CBC W/Diff, Automatedon 12-08 Absolute Lymph 1.50 X10 3/uL Normal 0.83-4.51 [facility] Comment on above: Order Comment: 101 Performed By: #### L 100.0100 #### [facility] [address] [place], [address] Absolute Neut 5.5 X10 3/uL Normal 2.0-7.7 [facility] Comment on above: Order Comment: 101 Performed By: #### L 100.0100 #### [facility] [address] [place], [address] Basophils/100 WBC (Bld) 0.5 % Normal 0-1 [facility] Comment on above: Order Comment: 101 Performed By: #### L 100.0100 #### [facility] [address] [place], [address] Eosinophils/100 WBC (Bld) 2.3 % Normal 0-5 [facility] Comment on above: Order Comment: 101 Performed By: #### L 100.0100 #### [facility] [address] [place], [address] Erythrocyte distribution width (RBC) [Ratio] 13.1 % Normal 11.6-14.6 [facility] Comment on above: Order Comment: 101 Performed By: #### L 100.0100 #### [facility] [address] [place], [address] Hematocrit (Bld) [Volume fraction] 41.1 % Normal 40-54 [facility] Comment on above: Order Comment: 101 Performed By: #### L 100.0100 #### [facility] [address] [place], [address] Hemoglobin (Bld) [Mass/Vol] 13.4 g/dL Normal 13.0-16.5 [facility] Comment on above: Order Comment: 101 Performed By: #### L 100.0100 #### [facility] [address] [place], [address] IG% 1.000 High 0.0-0.9 [facility] Comment on above: Order Comment: 101 Result Comment: IG% - Immature Granulocytes (promyelocytes, myelocytes and metamyelocytes) > 1% indicates that a LEFT SHIFT is Present. Performed By: #### L 100.0100 #### [facility] [address] [place], [address] Lymphocytes/100 WBC (Bld) 19.0 % Normal 19-41 [facility] Comment on above: Order Comment: 101 Performed By: #### L 100.0100 #### [facility] [address] [place], [address] MCH (RBC) [Entitic mass] 31.3 pg Normal 27.0-32.0 [facility] Comment on above: Order Comment: 101 Performed By: #### L 100.0100 #### [facility] [address] [place], [address] MCHC (RBC) [Mass/Vol] 32.6 g/dL Normal 32-36 [facility] Comment on above: Order Comment: 101 Performed By: #### L 100.0100 #### [facility] [address] [place], [address] MCV (RBC) [Entitic vol] 96.0 fL High 80-94 [facility] Comment on above: Order Comment: 101 Performed By: #### L 100.0100 #### [facility] [address] [place], [address] Monocytes/100 WBC (Bld) 8.0 % Normal 0-10 [facility] Comment on above: Order Comment: 101 Performed By: #### L 100.0100 #### [facility] [address] [place], [address] Neutrophils/100 WBC (Bld) 69.2 % Normal 47-70 [facility] Comment on above: Order Comment: 101 Performed By: #### L 100.0100 #### [facility] [address] [place], [address] Nucleated RBC (Bld) [#/Vol] 0 10*3/uL Normal 0-5 [facility] Comment on above: Order Comment: 101 Performed By: #### L 100.0100 #### [facility] [address] [place], [address] Platelet mean volume (Bld) [Entitic vol] 10.7 fL Normal 6.2-12.0 [facility] Comment on above: Order Comment: 101 Performed By: #### L 100.0100 #### [facility] [address] [place], [address] Platelets (Bld) [#/Vol] 197 10*3/uL Normal 150-450 [facility] Comment on above: Order Comment: 101 Performed By: #### L 100.0100 #### [facility] [address] [place], [address] RBC (Bld) [#/Vol] 4.28 10*6/uL Low 4.6-6.2 [facility] Comment on above: Order Comment: 101 Performed By: #### L 100.0100 #### [facility] [address] [place], [address] RDW SD 46.0 fl High 35.1-43.9 [facility] Comment on above: Order Comment: 101 Performed By: #### L 100.0100 #### [facility] [address] [place], [address] WBC (Bld) [#/Vol] 7.9 10*3/uL Normal 4.4-11.0 [facility] Comment on above: Order Comment: 101 Performed By: #### L 100.0100 #### [facility] [address] [place], [address] Eosinophil percentageOrdered By: Lynn Zurita on 12-30-2024 Eosinophils/100 WBC (Bld) 2.3 % 0-5 [facility] Erythrocyte distribution wid th (RBC) [Ratio]Ordered By: Lynn Zurita on 12-30-2024 Erythrocyte distribution width (RBC) [Entitic vol] 46.0 fL High 35.1-43.9 [facility] Erythrocyte distribution wid th ratioOrdered By: Lynn Zurita on 12-30-2024 Erythrocyte distribution width (RBC) [Ratio] 13.1 % 11.6-14.6 [facility] Erythrocyte distribution wid th standard deviationOrdered By: Lynn Zurita on 12-30-2024 Erythrocyte distribution width (RBC) [Ratio] 46.0 fl High 35.1-43.9 [facility] Hematocrit Auto (Bld) [Volum e fraction]Ordered By: Lynn Zurita on 12-30-2024 Hematocrit (Bld) [Volume fraction] 41.1 % 40-54 [facility] Hemoglobin measurementOrdere d By: Lynn Zurita on 12-30-2024 Hemoglobin (Bld) [Mass/Vol] 13.4 g/dL 13.0-16.5 [facility] Immature granulocytes/100 WB C Auto (Bld)Ordered By: Lynn Zurita on 12-30-2024 Immature granulocytes/100 WBC (Bld) 1.000 % High 0.0-0.9 [facility] Comment on above: IG% - Immature Granu locytes (promyelocytes, myelocytes and metamyelocytes) > 1% indicates that a LEFT SHIFT is Present. Lymphocytes Auto (Unsp spec) [#/Vol]Ordered By: Lynn Zurita on 12-30-2024 Lymphocytes (Bld) [#/Vol] 1.50 10*3/uL 0.83-4.51 [facility] Lymphocytes/100 WBC Auto (Un sp spec)Ordered By: Lynn Zurita on 12-30-2024 Lymphocytes/100 WBC (Bld) 19.0 % 19-41 [facility] MCV (mean corpuscular volume ) determinationOrdered By: Lynn Zurita on 12-30-2024 MCV (RBC) [Entitic vol] 96.0 fL High 80-94 [facility] Mean corpuscular hemoglobin (MCH) determinationOrdered By: Lynn Zurita on 12-30-2024 MCH (RBC) [Entitic mass] 31.3 pg 27.0-32.0 [facility] Mean corpuscular hemoglobin concentration (MCHC) determinationOrdered By: Lynn Zurita on 12-30-2024 MCHC (RBC) [Mass/Vol] 32.6 g/dL 32-36 [facility] Mean platelet volume determi nationOrdered By: Lynn Zurita on 12-30-2024 Platelet mean volume (Bld) [Entitic vol] 10.7 fL 6.2-12.0 [facility] Monocyte percentageOrdered B y: Lynn Zurita on 12-30-2024 Monocytes/100 WBC (Bld) 8.0 % 0-10 [facility] Neutrophil percentageOrdered By: Lynn Zurita on 12-30-2024 Neutrophils/100 WBC (Bld) 69.2 % 47-70 [facility] Nucleated red blood cell per centageOrdered By: Lynn Zurita on 12-30-2024 Nucleated RBC/100 WBC (Bld) [Ratio] 0 % 0-5 [facility] Platelet countOrdered By: Radames Zurita on 12-30-2024 Platelets (Bld) [#/Vol] 197 10*3/uL 150-450 [facility] RBC Auto (Bld) [#/Vol]Ordere d By: Lynn Zurita on 12-30-2024 RBC (Bld) [#/Vol] 4.28 10*6/uL Low 4.6-6.2 [facility] White blood cell (WBC) count Ordered By: Lynn Zurita on 12-30-2024 WBC (Bld) [#/Vol] 7.9 10*3/uL 4.4-11.0 [facility] CBC-Complete Blood Cnt No Di ffon 12-02-2024 Erythrocyte distribution width (RBC) [Ratio] 13.4 % Normal 11.6-14.6 [facility] Comment on above: Order Comment: CLEAN CATCH Performed By: #### L 100.0500, L400.0001, M100.2200, L500.4050 #### [facility] [address] [place], [address] Hematocrit (Bld) [Volume fraction] 38.7 % Low 40-54 [facility] Comment on above: Order Comment: CLEAN CATCH Performed By: #### L 100.0500, L400.0001, M100.2200, L500.4050 #### [facility] [address] [place], [address] Hemoglobin (Bld) [Mass/Vol] 12.7 g/dL Low 13.0-16.5 [facility] Comment on above: Order Comment: CLEAN CATCH Performed By: #### L 100.0500, L400.0001, M100.2200, L500.4050 #### [facility] [address] [address], [address] MCH (RBC) [Entitic mass] 31.4 pg Normal 27.0-32.0 [facility] Comment on above: Order Comment: CLEAN CATCH Performed By: #### L 100.0500, L400.0001, M100.2200, L500.4050 #### [facility] [address] [place], [address] MCHC (RBC) [Mass/Vol] 32.8 g/dL Normal 32-36 [facility] Comment on above: Order Comment: CLEAN CATCH Performed By: #### L 100.0500, L400.0001, M100.2200, L500.4050 #### [facility] [address] [place], [address] MCV (RBC) [Entitic vol] 95.6 fL High 80-94 [facility] Comment on above: Order Comment: CLEAN CATCH Performed By: #### L 100.0500, L400.0001, M100.2200, L500.4050 #### [facility] [address] [place], [address] Platelet mean volume (Bld) [Entitic vol] 10.4 fL Normal 6.2-12.0 [facility] Comment on above: Order Comment: CLEAN CATCH Performed By: #### L 100.0500, L400.0001, M100.2200, L500.4050 #### [facility] [address] [place], [address] Platelets (Bld) [#/Vol] 170 10*3/uL Normal 150-450 [facility] Comment on above: Order Comment: CLEAN CATCH Performed By: #### L 100.0500, L400.0001, M100.2200, L500.4050 #### [facility] [address] [place], [address] RBC (Bld) [#/Vol] 4.05 10*6/uL Low 4.6-6.2 [facility] Comment on above: Order Comment: CLEAN CATCH Performed By: #### L 100.0500, L400.0001, M100.2200, L500.4050 #### [facility] [address] [place], [address] RDW SD 47.0 fl High 35.1-43.9 [facility] Comment on above: Order Comment: CLEAN CATCH Performed By: #### L 100.0500, L400.0001, M100.2200, L500.4050 #### [facility] [address] [place], [address] WBC (Bld) [#/Vol] 7.4 10*3/uL Normal 4.4-11.0 [facility] Comment on above: Order Comment: CLEAN CATCH Performed By: #### L 100.0500, L400.0001, M100.2200, L500.4050 #### [facility] [address] [place], [address] Erythrocyte distribution wid th (RBC) [Ratio]Ordered By: Lynn Zurita on 12-02-2024 Erythrocyte distribution width (RBC) [Entitic vol] 47.0 fL High 35.1-43.9 [facility] Erythrocyte distribution wid th ratioOrdered By: Lynn Zurita on 12-02-2024 Erythrocyte distribution width (RBC) [Ratio] 13.4 % 11.6-14.6 [facility] Hematocrit Auto (Bld) [Volum e fraction]Ordered By: Lynn Zurita on 12-02-2024 Hematocrit (Bld) [Volume fraction] 38.7 % Low 40-54 [facility] Hemoglobin measurementOrdere d By: Lynn Zurita on 12-02-2024 Hemoglobin (Bld) [Mass/Vol] 12.7 g/dL Low 13.0-16.5 [facility] MCV (mean corpuscular volume ) determinationOrdered By: Lynn Zurita on 12-02-2024 MCV (RBC) [Entitic vol] 95.6 fL High 80-94 [facility] Mean corpuscular hemoglobin (MCH) determinationOrdered By: Lynn Zurita on 12-02-2024 MCH (RBC) [Entitic mass] 31.4 pg 27.0-32.0 [facility] Mean corpuscular hemoglobin concentration (MCHC) determinationOrdered By: Lynn Zurita on 12-02-2024 MCHC (RBC) [Mass/Vol] 32.8 g/dL 32-36 [facility] Mean platelet volume determi nationOrdered By: Lynn Zurita on 12-02-2024 Platelet mean volume (Bld) [Entitic vol] 10.4 fL 6.2-12.0 [facility] Platelet countOrdered By: Radames Zurita on 12-02-2024 Platelets (Bld) [#/Vol] 170 10*3/uL 150-450 [facility] RBC Auto (Bld) [#/Vol]Ordere d By: Lynn Zurita on 12-02-2024 RBC (Bld) [#/Vol] 4.05 10*6/uL Low 4.6-6.2 [facility] White blood cell (WBC) count Ordered By: Lynn Zurita on 12-02-2024 WBC (Bld) [#/Vol] 7.4 10*3/uL 4.4-11.0 [facility] Hemoglobin A1con 11-12-2024 HbA1c (Bld) [Mass fraction] 6.9 % High 3.8-5.6 [facility] Comment on above: Order Comment: 101 Result Comment: Norm al < 5.7 % Prediabetic 5.7 - 6.4 % Diabetic >or= 6.5 % Please note range changes. Performed By: #### L 100.0500, L400.0001, M100.2200, L500.4050 #### [facility] [address] [place], [place], [id number] Hemoglobin A1c percentageOrd ered By: Lynn Zurita on 11-12-2024 HbA1c (Bld) [Mass fraction] 6.9 % High 3.8-5.6 [facility] Comment on above: Normal < 5.7 % Predi abetic 5.7 - 6.4 % Diabetic >or= 6.5 % Please note range changes. Absolute neutrophil countOrd ered By: Lynn Zurita on 11-04-2024 Neutrophils (Bld) [#/Vol] 5.7 10*3/uL 2.0-7.7 [facility] Basophil percentageOrdered B y: Lynn Zurita on 11-04-2024 Basophils/100 WBC (Bld) 0.5 % 0-1 [facility] CBC W/Diff, Automatedon 10-08 Absolute Lymph 1.46 X10 3/uL Normal 0.83-4.51 [facility] Comment on above: Order Comment: CLEAN CATCH Performed By: #### L 100.0500, L400.0001, M100.2200, L500.4050 #### [facility] [address] [place], [place], [id number] Absolute Neut 5.7 X10 3/uL Normal 2.0-7.7 [facility] Comment on above: Order Comment: CLEAN CATCH Performed By: #### L 100.0500, L400.0001, M100.2200, L500.4050 #### [facility] [address] [place], [address] Basophils/100 WBC (Bld) 0.5 % Normal 0-1 [facility] Comment on above: Order Comment: CLEAN CATCH Performed By: #### L 100.0500, L400.0001, M100.2200, L500.4050 #### [facility] [address] [place], [address] Eosinophils/100 WBC (Bld) 3.2 % Normal 0-5 [facility] Comment on above: Order Comment: CLEAN CATCH Performed By: #### L 100.0500, L400.0001, M100.2200, L500.4050 #### [facility] [address] [place], [address] Erythrocyte distribution width (RBC) [Ratio] 13.4 % Normal 11.6-14.6 [facility] Comment on above: Order Comment: CLEAN CATCH Performed By: #### L 100.0500, L400.0001, M100.2200, L500.4050 #### [facility] [address] [place], [address] Hematocrit (Bld) [Volume fraction] 40.7 % Normal 40-54 [facility] Comment on above: Order Comment: CLEAN CATCH Performed By: #### L 100.0500, L400.0001, M100.2200, L500.4050 #### [facility] [address] [place], [address] Hemoglobin (Bld) [Mass/Vol] 13.8 g/dL Normal 13.0-16.5 [facility] Comment on above: Order Comment: CLEAN CATCH Performed By: #### L 100.0500, L400.0001, M100.2200, L500.4050 #### [facility] [address] [place], [address] IG% 0.900 Normal 0.0-0.9 [facility] Comment on above: Order Comment: CLEAN CATCH Result Comment: IG% - Immature Granulocytes (promyelocytes, myelocytes and metamyelocytes) > 1% indicates that a LEFT SHIFT is Present. Performed By: #### L 100.0500, L400.0001, M100.2200, L500.4050 #### [facility] [address] [place], [address] Lymphocytes/100 WBC (Bld) 17.9 % Low 19-41 [facility] Comment on above: Order Comment: CLEAN CATCH Performed By: #### L 100.0500, L400.0001, M100.2200, L500.4050 #### [facility] [address] [place], [address] MCH (RBC) [Entitic mass] 32.6 pg High 27.0-32.0 [facility] Comment on above: Order Comment: CLEAN CATCH Performed By: #### L 100.0500, L400.0001, M100.2200, L500.4050 #### [facility] [address] [place], [address] MCHC (RBC) [Mass/Vol] 33.9 g/dL Normal 32-36 [facility] Comment on above: Order Comment: CLEAN CATCH Performed By: #### L 100.0500, L400.0001, M100.2200, L500.4050 #### [facility] [address] [place], [address] MCV (RBC) [Entitic vol] 96.2 fL High 80-94 [facility] Comment on above: Order Comment: CLEAN CATCH Performed By: #### L 100.0500, L400.0001, M100.2200, L500.4050 #### [facility] [address] [place], [address] Monocytes/100 WBC (Bld) 7.8 % Normal 0-10 [facility] Comment on above: Order Comment: CLEAN CATCH Performed By: #### L 100.0500, L400.0001, M100.2200, L500.4050 #### [facility] [address] [place], [address] Neutrophils/100 WBC (Bld) 69.7 % Normal 47-70 [facility] Comment on above: Order Comment: CLEAN CATCH Performed By: #### L 100.0500, L400.0001, M100.2200, L500.4050 #### [facility] [address] [place], [address] Nucleated RBC (Bld) [#/Vol] 0 10*3/uL Normal 0-5 [facility] Comment on above: Order Comment: CLEAN CATCH Performed By: #### L 100.0500, L400.0001, M100.2200, L500.4050 #### [facility] [address] [place], [address] Platelet mean volume (Bld) [Entitic vol] 10.7 fL Normal 6.2-12.0 [facility] Comment on above: Order Comment: CLEAN CATCH Performed By: #### L 100.0500, L400.0001, M100.2200, L500.4050 #### [facility] [address] [place], [address] Platelets (Bld) [#/Vol] 166 10*3/uL Normal 150-450 [facility] Comment on above: Order Comment: CLEAN CATCH Performed By: #### L 100.0500, L400.0001, M100.2200, L500.4050 #### [facility] [address] [place], [address] RBC (Bld) [#/Vol] 4.23 10*6/uL Low 4.6-6.2 [facility] Comment on above: Order Comment: CLEAN CATCH Performed By: #### L 100.0500, L400.0001, M100.2200, L500.4050 #### [facility] [address] [place], [address] RDW SD 47.6 fl High 35.1-43.9 [facility] Comment on above: Order Comment: CLEAN CATCH Performed By: #### L 100.0500, L400.0001, M100.2200, L500.4050 #### [facility] [address] [place], [address] WBC (Bld) [#/Vol] 8.2 10*3/uL Normal 4.4-11.0 [facility] Comment on above: Order Comment: CLEAN CATCH Performed By: #### L 100.0500, L400.0001, M100.2200, L500.4050 #### [facility] [address] [place], [address] Eosinophil percentageOrdered By: Lynn Zurita on 11-04-2024 Eosinophils/100 WBC (Bld) 3.2 % 0-5 [facility] Erythrocyte distribution wid th (RBC) [Ratio]Ordered By: Lynn Zurita on 11-04-2024 Erythrocyte distribution width (RBC) [Entitic vol] 47.6 fL High 35.1-43.9 [facility] Erythrocyte distribution wid th ratioOrdered By: Lynn Zurita on 11-04-2024 Erythrocyte distribution width (RBC) [Ratio] 13.4 % 11.6-14.6 [facility] Hematocrit Auto (Bld) [Volum e fraction]Ordered By: Lynn Zurita on 11-04-2024 Hematocrit (Bld) [Volume fraction] 40.7 % 40-54 [facility] Hemoglobin measurementOrdere d By: Lynn Zurita on 11-04-2024 Hemoglobin (Bld) [Mass/Vol] 13.8 g/dL 13.0-16.5 [facility] Immature granulocytes/100 WB C Auto (Bld)Ordered By: Lynn Zurita on 11-04-2024 Immature granulocytes/100 WBC (Bld) 0.900 % 0.0-0.9 [facility] Comment on above: IG% - Immature Granu locytes (promyelocytes, myelocytes and metamyelocytes) > 1% indicates that a LEFT SHIFT is Present. Lymphocytes Auto (Unsp spec) [#/Vol]Ordered By: Lynn Zurita on 11-04-2024 Lymphocytes (Bld) [#/Vol] 1.46 10*3/uL 0.83-4.51 [facility] Lymphocytes/100 WBC Auto (Un sp spec)Ordered By: Lynn Zurita on 11-04-2024 Lymphocytes/100 WBC (Bld) 17.9 % Low 19-41 [facility] MCV (mean corpuscular volume ) determinationOrdered By: Lynn Zurita on 11-04-2024 MCV (RBC) [Entitic vol] 96.2 fL High 80-94 [facility] Mean corpuscular hemoglobin (MCH) determinationOrdered By: Lynn Zurita on 11-04-2024 MCH (RBC) [Entitic mass] 32.6 pg High 27.0-32.0 [facility] Mean corpuscular hemoglobin concentration (MCHC) determinationOrdered By: Lynn Zurita on 11-04-2024 MCHC (RBC) [Mass/Vol] 33.9 g/dL 32-36 [facility] Mean platelet volume determi nationOrdered By: Lynn Zurita on 11-04-2024 Platelet mean volume (Bld) [Entitic vol] 10.7 fL 6.2-12.0 [facility] Monocyte percentageOrdered B y: Lynn Zurita on 11-04-2024 Monocytes/100 WBC (Bld) 7.8 % 0-10 [facility] Neutrophil percentageOrdered By: Lynn Zurita on 11-04-2024 Neutrophils/100 WBC (Bld) 69.7 % 47-70 [facility] Nucleated red blood cell per centageOrdered By: Lynn Zurita on 11-04-2024 Nucleated RBC/100 WBC (Bld) [Ratio] 0 % 0-5 [facility] Platelet countOrdered By: Radames Zurita on 11-04-2024 Platelets (Bld) [#/Vol] 166 10*3/uL 150-450 [facility] RBC Auto (Bld) [#/Vol]Ordere d By: Lynn Zurita on 11-04-2024 RBC (Bld) [#/Vol] 4.23 10*6/uL Low 4.6-6.2 [facility] White blood cell (WBC) count Ordered By: Lynn Zurita on 11-04-2024 WBC (Bld) [#/Vol] 8.2 10*3/uL 4.4-11.0 [facility] Lipid Profileon 10-14-2024 Cholesterol [Mass/Vol] 165 mg/dL Normal 200 [facility] Comment on above: Order Comment: 101 Result Comment: <200 mg/dL Desirable 200-240 mg/dL Borderline >240 mg/dL High Risk Performed By: #### L 100.0500, L400.0001, M100.2200, L500.4050 #### [facility] [address] [place], [address] Cholesterol in HDL [Mass/Vol] 30 mg/dL Low [facility] Comment on above: Order Comment: 101 Result Comment: The drugs N-Acetylcysteine and Metamizole may falsely depress this assay. Reference Range HDL <40 mg/dL Low HDL Cholesterol HDL >or= 60 mg/dL High HDL Cholesterol Performed By: #### L 100.0500, L400.0001, M100.2200, L500.4050 #### [facility] [address] [place], [address] Cholesterol in LDL [Mass/Vol] 69 mg/dL Normal 0-130 [facility] Comment on above: Order Comment: 101 Performed By: #### L 100.0500, L400.0001, M100.2200, L500.4050 #### [facility] [address] [place], [address] Cholesterol in VLDL [Mass/Vol] 66 mg/dL High 5-40 [facility] Comment on above: Order Comment: 101 Performed By: #### L 100.0500, L400.0001, M100.2200, L500.4050 #### [facility] [address] [place], [address] Triglyceride [Mass/Vol] 328 mg/dL High [facility] Comment on above: Order Comment: 101 Result Comment: The drugs N-Acetylcysteine and Metamizole may falsely depress this assay. Serum Triglycerides Reference Interval Normal <150 mg/dL Borderline high 150 - 199 mg/dL High 200 - 499 mg/dL Very High > or = 500 mg/dL Performed By: #### L 100.0500, L400.0001, M100.2200, L500.4050 #### [facility] [address] [place], [address] CBC W/Diff, Automatedon 12-0 2-2023 Absolute Lymph 1.51 X10 3/uL Normal 0.83-4.51 [facility] Comment on above: Order Comment: 101 Performed By: #### L 100.0100 #### [facility] [address] [place], [address] Absolute Neut 4.5 X10 3/uL Normal 2.0-7.7 [facility] Comment on above: Order Comment: 101 Performed By: #### L 100.0100 #### [facility] [address] [place], [address] Basophils/100 WBC (Bld) 0.6 % Normal 0-1 [facility] Comment on above: Order Comment: 101 Performed By: #### L 100.0100 #### [facility] [address] [place], [address] Eosinophils/100 WBC (Bld) 2.6 % Normal 0-5 [facility] Comment on above: Order Comment: 101 Performed By: #### L 100.0100 #### [facility] [address] [place], [address] Erythrocyte distribution width (RBC) [Ratio] 13.2 % Normal 11.6-14.6 [facility] Comment on above: Order Comment: 101 Performed By: #### L 100.0100 #### [facility] [address] [place], [address] Hematocrit (Bld) [Volume fraction] 41.6 % Normal 40-54 [facility] Comment on above: Order Comment: 101 Performed By: #### L 100.0100 #### [facility] [address] [place], [address] Hemoglobin (Bld) [Mass/Vol] 14.4 g/dL Normal 13.0-16.5 [facility] Comment on above: Order Comment: 101 Performed By: #### L 100.0100 #### [facility] [address] [place], [address] IG% 1.000 High 0.0-0.9 [facility] Comment on above: Order Comment: 101 Result Comment: IG% - Immature Granulocytes (promyelocytes, myelocytes and metamyelocytes) > 1% indicates that a LEFT SHIFT is Present. Performed By: #### L 100.0100 #### [facility] [address] [place], [address] Lymphocytes/100 WBC (Bld) 21.7 % Normal 19-41 [facility] Comment on above: Order Comment: 101 Performed By: #### L 100.0100 #### [facility] [address] [place], [address] MCH (RBC) [Entitic mass] 32.5 pg High 27.0-32.0 [facility] Comment on above: Order Comment: 101 Performed By: #### L 100.0100 #### [facility] [address] [place], [address] MCHC (RBC) [Mass/Vol] 34.6 g/dL Normal 32-36 [facility] Comment on above: Order Comment: 101 Performed By: #### L 100.0100 #### [facility] [address] [place], [address] MCV (RBC) [Entitic vol] 93.9 fL Normal 80-94 [facility] Comment on above: Order Comment: 101 Performed By: #### L 100.0100 #### [facility] [address] [place], [address] Monocytes/100 WBC (Bld) 9.4 % Normal 0-10 [facility] Comment on above: Order Comment: 101 Performed By: #### L 100.0100 #### [facility] [address] [place], [address] Neutrophils/100 WBC (Bld) 64.7 % Normal 47-70 [facility] Comment on above: Order Comment: 101 Performed By: #### L 100.0100 #### [facility] [address] [place], [address] Nucleated RBC (Bld) [#/Vol] 0 10*3/uL Normal 0-5 [facility] Comment on above: Order Comment: 101 Performed By: #### L 100.0100 #### [facility] [address] [place], [address] Platelet mean volume (Bld) [Entitic vol] 10.9 fL Normal 6.2-12.0 [facility] Comment on above: Order Comment: 101 Performed By: #### L 100.0100 #### [facility] [address] [place], [address] Platelets (Bld) [#/Vol] 181 10*3/uL Normal 150-450 [facility] Comment on above: Order Comment: 101 Performed By: #### L 100.0100 #### [facility] [address] [place], [address] RBC (Bld) [#/Vol] 4.43 10*6/uL Low 4.6-6.2 [facility] Comment on above: Order Comment: 101 Performed By: #### L 100.0100 #### [facility] [address] [place], [address] RDW SD 45.1 fl High 35.1-43.9 [facility] Comment on above: Order Comment: 101 Performed By: #### L 100.0100 #### [facility] [address] [place], [address] WBC (Bld) [#/Vol] 7.0 10*3/uL Normal 4.4-11.0 [facility] Comment on above: Order Comment: 101 Performed By: #### L 100.0100 #### [facility] [address] [place], [address] CBC W/Diff, Automatedon 11-0 4-2024 Absolute Lymph 1.72 X10 3/uL Normal 0.83-4.51 [facility] Comment on above: Order Comment: 101 Performed By: #### L 100.0100 #### [facility] [address] [place], [address] Absolute Neut 4.7 X10 3/uL Normal 2.0-7.7 [facility] Comment on above: Order Comment: 101 Performed By: #### L 100.0100 #### [facility] [address] [place], [address] Basophils/100 WBC (Bld) 0.6 % Normal 0-1 [facility] Comment on above: Order Comment: 101 Performed By: #### L 100.0100 #### [facility] [address] [place], [address] Eosinophils/100 WBC (Bld) 2.8 % Normal 0-5 [facility] Comment on above: Order Comment: 101 Performed By: #### L 100.0100 #### [facility] [address] [place], [address] Erythrocyte distribution width (RBC) [Ratio] 12.9 % Normal 11.6-14.6 [facility] Comment on above: Order Comment: 101 Performed By: #### L 100.0100 #### [facility] [address] [place], [address] Hematocrit (Bld) [Volume fraction] 42.2 % Normal 40-54 [facility] Comment on above: Order Comment: 101 Performed By: #### L 100.0100 #### [facility] [address] [place], [address] Hemoglobin (Bld) [Mass/Vol] 14.3 g/dL Normal 13.0-16.5 [facility] Comment on above: Order Comment: 101 Performed By: #### L 100.0100 #### [facility] [address] [place], [address] IG% 1.100 High 0.0-0.9 [facility] Comment on above: Order Comment: 101 Result Comment: IG% - Immature Granulocytes (promyelocytes, myelocytes and metamyelocytes) > 1% indicates that a LEFT SHIFT is Present. Performed By: #### L 100.0100 #### [facility] [address] [place], [address] Lymphocytes/100 WBC (Bld) 23.7 % Normal 19-41 [facility] Comment on above: Order Comment: 101 Performed By: #### L 100.0100 #### [facility] [address] [place], [address] MCH (RBC) [Entitic mass] 31.6 pg Normal 27.0-32.0 [facility] Comment on above: Order Comment: 101 Performed By: #### L 100.0100 #### [facility] [address] [place], [address] MCHC (RBC) [Mass/Vol] 33.9 g/dL Normal 32-36 [facility] Comment on above: Order Comment: 101 Performed By: #### L 100.0100 #### [facility] [address] [place], [address] MCV (RBC) [Entitic vol] 93.4 fL Normal 80-94 [facility] Comment on above: Order Comment: 101 Performed By: #### L 100.0100 #### [facility] [address] [place], [address] Monocytes/100 WBC (Bld) 7.3 % Normal 0-10 [facility] Comment on above: Order Comment: 101 Performed By: #### L 100.0100 #### [facility] [address] [place], [address] Neutrophils/100 WBC (Bld) 64.5 % Normal 47-70 [facility] Comment on above: Order Comment: 101 Performed By: #### L 100.0100 #### [facility] [address] [place], [address] Nucleated RBC (Bld) [#/Vol] 0 10*3/uL Normal 0-5 [facility] Comment on above: Order Comment: 101 Performed By: #### L 100.0100 #### [facility] [address] [place], [address] Platelet mean volume (Bld) [Entitic vol] 10.9 fL Normal 6.2-12.0 [facility] Comment on above: Order Comment: 101 Performed By: #### L 100.0100 #### [facility] [address] [place], [address] Platelets (Bld) [#/Vol] 160 10*3/uL Normal 150-450 [facility] Comment on above: Order Comment: 101 Performed By: #### L 100.0100 #### [facility] [address] [place], [address] RBC (Bld) [#/Vol] 4.52 10*6/uL Low 4.6-6.2 [facility] Comment on above: Order Comment: 101 Performed By: #### L 100.0100 #### [facility] [address] [place], [address] RDW SD 43.8 fl Normal 35.1-43.9 [facility] Comment on above: Order Comment: 101 Performed By: #### L 100.0100 #### [facility] [address] [place], [address] WBC (Bld) [#/Vol] 7.3 10*3/uL Normal 4.4-11.0 [facility] Comment on above: Order Comment: 101 Performed By: #### L 100.0100 #### [facility] [address] [place], [address] CBC W/Diff, Automatedon 10-0 7-4 Absolute Lymph 1.93 X10 3/uL Normal 0.83-4.51 [facility] Comment on above: Order Comment: 101-1 Performed By: #### L 501.9985, L100.0100 #### [facility] [address] [place], [address] Absolute Neut 4.4 X10 3/uL Normal 2.0-7.7 [facility] Comment on above: Order Comment: 101-1 Performed By: #### L 501.9985, L100.0100 #### [facility] [address] [place], [address] Basophils/100 WBC (Bld) 0.4 % Normal 0-1 [facility] Comment on above: Order Comment: 101-1 Performed By: #### L 501.9985, L100.0100 #### [facility] [address] [place], [address] Eosinophils/100 WBC (Bld) 2.8 % Normal 0-5 [facility] Comment on above: Order Comment: 101-1 Performed By: #### L 501.9985, L100.0100 #### [facility] [address] [place], [address] Erythrocyte distribution width (RBC) [Ratio] 12.9 % Normal 11.6-14.6 [facility] Comment on above: Order Comment: 101-1 Performed By: #### L 501.9985, L100.0100 #### [facility] [address] [place], [address] Hematocrit (Bld) [Volume fraction] 41.6 % Normal 40-54 [facility] Comment on above: Order Comment: 101-1 Performed By: #### L 501.9985, L100.0100 #### [facility] [address] [place], [address] Hemoglobin (Bld) [Mass/Vol] 14.2 g/dL Normal 13.0-16.5 [facility] Comment on above: Order Comment: 101-1 Performed By: #### L 501.9985, L100.0100 #### [facility] [address] [place], [address] IG% 1.100 High 0.0-0.9 [facility] Comment on above: Order Comment: 101-1 Result Comment: IG% - Immature Granulocytes (promyelocytes, myelocytes and metamyelocytes) > 1% indicates that a LEFT SHIFT is Present. Performed By: #### L 501.9985, L100.0100 #### [facility] [address] [place], [address] Lymphocytes/100 WBC (Bld) 26.8 % Normal 19-41 [facility] Comment on above: Order Comment: 101-1 Performed By: #### L 501.9985, L100.0100 #### [facility] [address] [place], [address] MCH (RBC) [Entitic mass] 32.3 pg High 27.0-32.0 [facility] Comment on above: Order Comment: 101-1 Performed By: #### L 501.9985, L100.0100 #### [facility] [address] [place], [address] MCHC (RBC) [Mass/Vol] 34.1 g/dL Normal 32-36 [facility] Comment on above: Order Comment: 101-1 Performed By: #### L 501.9985, L100.0100 #### [facility] [address] [place], [address] MCV (RBC) [Entitic vol] 94.8 fL High 80-94 [facility] Comment on above: Order Comment: 101-1 Performed By: #### L 501.9985, L100.0100 #### [facility] [address] [place], [address] Monocytes/100 WBC (Bld) 7.6 % Normal 0-10 [facility] Comment on above: Order Comment: 101-1 Performed By: #### L 501.9985, L100.0100 #### [facility] [address] [place], [address] Neutrophils/100 WBC (Bld) 61.3 % Normal 47-70 [facility] Comment on above: Order Comment: 101-1 Performed By: #### L 501.9985, L100.0100 #### [facility] [address] [place], [address] Nucleated RBC (Bld) [#/Vol] 0 10*3/uL Normal 0-5 [facility] Comment on above: Order Comment: 101-1 Performed By: #### L 501.9985, L100.0100 #### [facility] [address] [place], [address] Platelet mean volume (Bld) [Entitic vol] 11.3 fL Normal 6.2-12.0 [facility] Comment on above: Order Comment: 101-1 Performed By: #### L 501.9985, L100.0100 #### [facility] [address] [place], [address] Platelets (Bld) [#/Vol] 155 10*3/uL Normal 150-450 [facility] Comment on above: Order Comment: 101-1 Performed By: #### L 501.9985, L100.0100 #### [facility] [address] [place], [address] RBC (Bld) [#/Vol] 4.39 10*6/uL Low 4.6-6.2 [facility] Comment on above: Order Comment: 101-1 Performed By: #### L 501.9985, L100.0100 #### [facility] [address] [place], [address] RDW SD 44.2 fl High 35.1-43.9 [facility] Comment on above: Order Comment: 101-1 Performed By: #### L 501.9985, L100.0100 #### [facility] [address] [place], [address] WBC (Bld) [#/Vol] 7.2 10*3/uL Normal 4.4-11.0 [facility] Comment on above: Order Comment: 101-1 Performed By: #### L 501.9985, L100.0100 #### [facility] [address] [place], [address] Hemoglobin A1con 08-12-2024 HbA1c (Bld) [Mass fraction] 7.8 % High 3.8-5.6 [facility] Comment on above: Order Comment: 101-1 Result Comment: Norm al < 5.7 % Prediabetic 5.7 - 6.4 % Diabetic >or= 6.5 % Please note range changes. Performed By: #### L 501.9985, L100.0100 #### [facility] [address] [place], [address] Basic Metabolic Profile (BMP )on 07-22-2024 BUN/CRE 18.1 RATIO Normal 10-20 [facility] Comment on above: Order Comment: 101 Performed By: #### L 100.0500, L400.0001, M100.2200, L500.4050 #### [facility] [address] [place], [address] CA,Total 8.9 mg/dL Normal 8.5-10.1 [facility] Comment on above: Order Comment: 101 Performed By: #### L 100.0500, L400.0001, M100.2200, L500.4050 #### [facility] [address] [place], [address] Chloride [Moles/Vol] 105 mmol/L Normal 98-107 [facility] Comment on above: Order Comment: 101 Performed By: #### L 100.0500, L400.0001, M100.2200, L500.4050 #### [facility] [address] [place], [address] CO2 [Moles/Vol] 23.0 mmol/L Normal 21.0-32.0 [facility] Comment on above: Order Comment: 101 Performed By: #### L 100.0500, L400.0001, M100.2200, L500.4050 #### [facility] [address] [place], [address] Creatinine [Mass/Vol] 1.05 mg/dL Normal 0.70-1.30 [facility] Comment on above: Order Comment: 101 Result Comment: The validity of the calculated GFR GFRAA in patients over 70 years has not been determined. Clinical correlation is essential. Performed By: #### L 100.0500, L400.0001, M100.2200, L500.4050 #### [facility] [address] [place], [address] EST GFR - AA 90 mL/min Normal >60 [facility] Comment on above: Order Comment: 101 Result Comment: Afri can Portuguese GFR Calc Performed By: #### L 100.0500, L400.0001, M100.2200, L500.4050 #### [facility] [address] [place], [address] GAP 9 Normal 5-15 [facility] Comment on above: Order Comment: 101 Performed By: #### L 100.0500, L400.0001, M100.2200, L500.4050 #### [facility] [address] [place], [address] GFR/1.73 sq M.predicted among non-blacks MDRD (S/P/Bld) [Vol rate/Area] 74 mL/min/{1.73_m2} Normal >60 [facility] Comment on above: Order Comment: 101 Result Comment: Non- GFR Calc Performed By: #### L 100.0500, L400.0001, M100.2200, L500.4050 #### [facility] [address] [place], [address] Glucose [Mass/Vol] 183 mg/dL High 74-106 [facility] Comment on above: Order Comment: 101 Result Comment: Fast ing Glucose result greater than or equal to 126 mg/dL suggests DIABETES MELLITUS per A.D.A. criteria. Performed By: #### L 100.0500, L400.0001, M100.2200, L500.4050 #### [facility] [address] [place], [address] Potassium [Moles/Vol] 4.2 mmol/L Normal 3.5-5.1 [facility] Comment on above: Order Comment: 101 Result Comment: Slig ht Hemolysis, Result may be falsely increased. Performed By: #### L 100.0500, L400.0001, M100.2200, L500.4050 #### [facility] [address] [place], [address] Sodium [Moles/Vol] 137 mmol/L Normal 136-145 [facility] Comment on above: Order Comment: 101 Performed By: #### L 100.0500, L400.0001, M100.2200, L500.4050 #### [facility] [address] [place], [address] Urea nitrogen [Mass/Vol] 19 mg/dL High 7-18 [facility] Comment on above: Order Comment: 101 Performed By: #### L 100.0500, L400.0001, M100.2200, L500.4050 #### [facility] [address] [place], [address] CBC W/Diff, Automatedon 09-0 9-2023 Absolute Lymph 1.50 X10 3/uL Normal 0.83-4.51 [facility] Comment on above: Order Comment: 101-1 Performed By: #### L 100.0500, L400.0001, M100.2200, L500.4050 #### [facility] [address] [place], [address] Absolute Neut 4.9 X10 3/uL Normal 2.0-7.7 [facility] Comment on above: Order Comment: 101-1 Performed By: #### L 100.0500, L400.0001, M100.2200, L500.4050 #### [facility] [address] [place], [address] Basophils/100 WBC (Bld) 0.6 % Normal 0-1 [facility] Comment on above: Order Comment: 101-1 Performed By: #### L 100.0500, L400.0001, M100.2200, L500.4050 #### [facility] [address] [place], [address] Eosinophils/100 WBC (Bld) 2.6 % Normal 0-5 [facility] Comment on above: Order Comment: 101-1 Performed By: #### L 100.0500, L400.0001, M100.2200, L500.4050 #### [facility] [address] [place], [address] Erythrocyte distribution width (RBC) [Ratio] 13.1 % Normal 11.6-14.6 [facility] Comment on above: Order Comment: 101-1 Performed By: #### L 100.0500, L400.0001, M100.2200, L500.4050 #### [facility] [address] [place], [address] Hematocrit (Bld) [Volume fraction] 44.4 % Normal 40-54 [facility] Comment on above: Order Comment: 101-1 Performed By: #### L 100.0500, L400.0001, M100.2200, L500.4050 #### [facility] [address] [place], [address] Hemoglobin (Bld) [Mass/Vol] 14.7 g/dL Normal 13.0-16.5 [facility] Comment on above: Order Comment: 101-1 Performed By: #### L 100.0500, L400.0001, M100.2200, L500.4050 #### [facility] [address] [place], [address] IG% 1.500 High 0.0-0.9 [facility] Comment on above: Order Comment: 101-1 Result Comment: IG% - Immature Granulocytes (promyelocytes, myelocytes and metamyelocytes) > 1% indicates that a LEFT SHIFT is Present. Performed By: #### L 100.0500, L400.0001, M100.2200, L500.4050 #### [facility] [address] [place], [address] Lymphocytes/100 WBC (Bld) 20.7 % Normal 19-41 [facility] Comment on above: Order Comment: 101-1 Performed By: #### L 100.0500, L400.0001, M100.2200, L500.4050 #### [facility] [address] [place], [address] MCH (RBC) [Entitic mass] 31.6 pg Normal 27.0-32.0 [facility] Comment on above: Order Comment: 101-1 Performed By: #### L 100.0500, L400.0001, M100.2200, L500.4050 #### [facility] [address] [place], [address] MCHC (RBC) [Mass/Vol] 33.1 g/dL Normal 32-36 [facility] Comment on above: Order Comment: 101-1 Performed By: #### L 100.0500, L400.0001, M100.2200, L500.4050 #### [facility] [address] [place], [address] MCV (RBC) [Entitic vol] 95.5 fL High 80-94 [facility] Comment on above: Order Comment: 101-1 Performed By: #### L 100.0500, L400.0001, M100.2200, L500.4050 #### [facility] [address] [place], [address] Monocytes/100 WBC (Bld) 7.3 % Normal 0-10 [facility] Comment on above: Order Comment: 101-1 Performed By: #### L 100.0500, L400.0001, M100.2200, L500.4050 #### [facility] [address] [place], [address] Neutrophils/100 WBC (Bld) 67.3 % Normal 47-70 [facility] Comment on above: Order Comment: 101-1 Performed By: #### L 100.0500, L400.0001, M100.2200, L500.4050 #### [facility] [address] [place], [address] Nucleated RBC (Bld) [#/Vol] 0 10*3/uL Normal 0-5 [facility] Comment on above: Order Comment: 101-1 Performed By: #### L 100.0500, L400.0001, M100.2200, L500.4050 #### [facility] [address] [place], [address] Platelet mean volume (Bld) [Entitic vol] 11.1 fL Normal 6.2-12.0 [facility] Comment on above: Order Comment: 101-1 Performed By: #### L 100.0500, L400.0001, M100.2200, L500.4050 #### [facility] [address] [place], [address] Platelets (Bld) [#/Vol] 176 10*3/uL Normal 150-450 [facility] Comment on above: Order Comment: 101-1 Performed By: #### L 100.0500, L400.0001, M100.2200, L500.4050 #### [facility] [address] [place], [address] RBC (Bld) [#/Vol] 4.65 10*6/uL Normal 4.6-6.2 [facility] Comment on above: Order Comment: 101-1 Performed By: #### L 100.0500, L400.0001, M100.2200, L500.4050 #### [facility] [address] [place], [address] RDW SD 46.3 fl High 35.1-43.9 [facility] Comment on above: Order Comment: 101-1 Performed By: #### L 100.0500, L400.0001, M100.2200, L500.4050 #### [facility] [address] [place], [address] WBC (Bld) [#/Vol] 7.2 10*3/uL Normal 4.4-11.0 [facility] Comment on above: Order Comment: 101-1 Performed By: #### L 100.0500, L400.0001, M100.2200, L500.4050 #### [facility] [address] [place], [address] Hemoglobin A1con 07-15-2024 HbA1c (Bld) [Mass fraction] 8.2 % High 3.8-5.6 [facility] Comment on above: Order Comment: 101-1 Result Comment: Norm al < 5.7 % Prediabetic 5.7 - 6.4 % Diabetic >or= 6.5 % Please note range changes. Performed By: #### L 100.0500, L400.0001, M100.2200, L500.4050 #### [facility] [address] [place], [address] CBC-Complete Blood Cnt No Di ffon 06-17-2024 Erythrocyte distribution width (RBC) [Ratio] 13.2 % Normal 11.6-14.6 [facility] Comment on above: Performed By: #### L 501.9985, L100.0500 #### [facility] [address] [place], [address] Hematocrit (Bld) [Volume fraction] 41.8 % Normal 40-54 [facility] Comment on above: Performed By: #### L 501.9985, L100.0500 #### [facility] [address] [place], [address] Hemoglobin (Bld) [Mass/Vol] 14.0 g/dL Normal 13.0-16.5 [facility] Comment on above: Performed By: #### L 501.9985, L100.0500 #### [facility] [address] [place], [address] MCH (RBC) [Entitic mass] 31.7 pg Normal 27.0-32.0 [facility] Comment on above: Performed By: #### L 501.9985, L100.0500 #### [facility] [address] [place], [address] MCHC (RBC) [Mass/Vol] 33.5 g/dL Normal 32-36 [facility] Comment on above: Performed By: #### L 501.9985, L100.0500 #### [facility] [address] [place], [address] MCV (RBC) [Entitic vol] 94.8 fL High 80-94 [facility] Comment on above: Performed By: #### L 501.9985, L100.0500 #### [facility] [address] [place], [address] Platelet mean volume (Bld) [Entitic vol] 11.2 fL Normal 6.2-12.0 [facility] Comment on above: Performed By: #### L 501.9985, L100.0500 #### [facility] [address] [place], [address] Platelets (Bld) [#/Vol] 185 10*3/uL Normal 150-450 [facility] Comment on above: Performed By: #### L 501.9985, L100.0500 #### [facility] [address] [place], [address] RBC (Bld) [#/Vol] 4.41 10*6/uL Low 4.6-6.2 [facility] Comment on above: Performed By: #### L 501.9985, L100.0500 #### [facility] [address] [place], [address] RDW SD 45.4 fl High 35.1-43.9 [facility] Comment on above: Performed By: #### L 501.9985, L100.0500 #### [facility] [address] [place], [address] WBC (Bld) [#/Vol] 7.5 10*3/uL Normal 4.4-11.0 [facility] Comment on above: Performed By: #### L 501.9985, L100.0500 #### [facility] [address] [place], [address] Hemoglobin A1con 06-17-2024 HbA1c (Bld) [Mass fraction] 7.8 % High 3.8-5.6 [facility] Comment on above: Result Comment: Norm al < 5.7 % Prediabetic 5.7 - 6.4 % Diabetic >or= 6.5 % Please note range changes. Performed By: #### L 100.0500, L400.0001, M100.2200, L500.4050 #### [facility] [address] [place], [address] Urine Cultureon 05-28-2024 [facility] UNKNOWN METHOD OF COLLECTION Culture exhibits no growth. Normal [facility] Comment on above: Performed By: #### L 100.0500, L400.0001, M100.2200, L500.4050 #### [facility] [address] [place], [address] Urinalysis, Completeon 05-27 BACTERIA 0 SEEN Normal None Seen [facility] Comment on above: Order Comment: 101 Performed By: #### L 100.0500, L400.0001, M100.2200, L500.4050 #### [facility] [address] [place], [address] EPI,SQUAMOUS 0 SEEN Normal 0-5 [facility] Comment on above: Order Comment: 101 Performed By: #### L 100.0500, L400.0001, M100.2200, L500.4050 #### [facility] [address] [place], [address] Mucus Ql (Urine sed) 0 SEEN Normal [facility] Comment on above: Order Comment: 101 Performed By: #### L 100.0500, L400.0001, M100.2200, L500.4050 #### [facility] [address] [place], [address] RBC 0 SEEN Normal 0-5 [facility] Comment on above: Order Comment: 101 Performed By: #### L 100.0500, L400.0001, M100.2200, L500.4050 #### [facility] [address] [place], [address] WBC 0 SEEN Normal 0-5 [facility] Comment on above: Order Comment: 101 Performed By: #### L 100.0500, L400.0001, M100.2200, L500.4050 #### [facility] [address] [place], [address] CBC W/Diff, Automatedon 05-06 Absolute Lymph 1.90 X10 3/uL Normal 0.83-4.51 [facility] Comment on above: Order Comment: 101 Performed By: #### L 100.0500, L400.0001, M100.2200, L500.4050 #### [facility] [address] [place], [address] Absolute Neut 4.2 X10 3/uL Normal 2.0-7.7 [facility] Comment on above: Order Comment: 101 Performed By: #### L 100.0500, L400.0001, M100.2200, L500.4050 #### [facility] [address] [place], [address] Basophils/100 WBC (Bld) 0.9 % Normal 0-1 [facility] Comment on above: Order Comment: 101 Performed By: #### L 100.0500, L400.0001, M100.2200, L500.4050 #### [facility] [address] [place], [address] Eosinophils/100 WBC (Bld) 3.3 % Normal 0-5 [facility] Comment on above: Order Comment: 101 Performed By: #### L 100.0500, L400.0001, M100.2200, L500.4050 #### [facility] [address] [place], [address] Erythrocyte distribution width (RBC) [Ratio] 12.9 % Normal 11.6-14.6 [facility] Comment on above: Order Comment: 101 Performed By: #### L 100.0500, L400.0001, M100.2200, L500.4050 #### [facility] [address] [place], [address] Hematocrit (Bld) [Volume fraction] 40.9 % Normal 40-54 [facility] Comment on above: Order Comment: 101 Performed By: #### L 100.0500, L400.0001, M100.2200, L500.4050 #### [facility] [address] [place], [address] Hemoglobin (Bld) [Mass/Vol] 14.0 g/dL Normal 13.0-16.5 [facility] Comment on above: Order Comment: 101 Performed By: #### L 100.0500, L400.0001, M100.2200, L500.4050 #### [facility] [address] [place], [address] IG% 1.100 High 0.0-0.9 [facility] Comment on above: Order Comment: 101 Result Comment: IG% - Immature Granulocytes (promyelocytes, myelocytes and metamyelocytes) > 1% indicates that a LEFT SHIFT is Present. Performed By: #### L 100.0500, L400.0001, M100.2200, L500.4050 #### [facility] [address] [place], [address] Lymphocytes/100 WBC (Bld) 27.1 % Normal 19-41 [facility] Comment on above: Order Comment: 101 Performed By: #### L 100.0500, L400.0001, M100.2200, L500.4050 #### [facility] [address] [place], [address] MCH (RBC) [Entitic mass] 31.6 pg Normal 27.0-32.0 [facility] Comment on above: Order Comment: 101 Performed By: #### L 100.0500, L400.0001, M100.2200, L500.4050 #### [facility] [address] [place], [address] MCHC (RBC) [Mass/Vol] 34.2 g/dL Normal 32-36 [facility] Comment on above: Order Comment: 101 Performed By: #### L 100.0500, L400.0001, M100.2200, L500.4050 #### [facility] [address] [place], [address] MCV (RBC) [Entitic vol] 92.3 fL Normal 80-94 [facility] Comment on above: Order Comment: 101 Performed By: #### L 100.0500, L400.0001, M100.2200, L500.4050 #### [facility] [address] [place], [address] Monocytes/100 WBC (Bld) 8.0 % Normal 0-10 [facility] Comment on above: Order Comment: 101 Performed By: #### L 100.0500, L400.0001, M100.2200, L500.4050 #### [facility] [address] [place], [address] Neutrophils/100 WBC (Bld) 59.6 % Normal 47-70 [facility] Comment on above: Order Comment: 101 Performed By: #### L 100.0500, L400.0001, M100.2200, L500.4050 #### [facility] [address] [place], [address] Nucleated RBC (Bld) [#/Vol] 0 10*3/uL Normal 0-5 [facility] Comment on above: Order Comment: 101 Performed By: #### L 100.0500, L400.0001, M100.2200, L500.4050 #### [facility] [address] [place], [address] Platelet mean volume (Bld) [Entitic vol] 11.0 fL Normal 6.2-12.0 [facility] Comment on above: Order Comment: 101 Performed By: #### L 100.0500, L400.0001, M100.2200, L500.4050 #### [facility] [address] [place], [address] Platelets (Bld) [#/Vol] 159 10*3/uL Normal 150-450 [facility] Comment on above: Order Comment: 101 Performed By: #### L 100.0500, L400.0001, M100.2200, L500.4050 #### [facility] [address] [place], [address] RBC (Bld) [#/Vol] 4.43 10*6/uL Low 4.6-6.2 [facility] Comment on above: Order Comment: 101 Performed By: #### L 100.0500, L400.0001, M100.2200, L500.4050 #### [facility] [address] [place], [address] RDW SD 43.6 fl Normal 35.1-43.9 [facility] Comment on above: Order Comment: 101 Performed By: #### L 100.0500, L400.0001, M100.2200, L500.4050 #### [facility] [address] [place], [address] WBC (Bld) [#/Vol] 7.0 10*3/uL Normal 4.4-11.0 [facility] Comment on above: Order Comment: 101 Performed By: #### L 100.0500, L400.0001, M100.2200, L500.4050 #### [facility] [address] [place], [address] Hemoglobin A1con 05-17-2024 HbA1c (Bld) [Mass fraction] 7.4 % High 3.8-5.6 [facility] Comment on above: Order Comment: 101 Result Comment: Norm al < 5.7 % Prediabetic 5.7 - 6.4 % Diabetic >or= 6.5 % Please note range changes. Performed By: #### L 100.0500, L400.0001, M100.2200, L500.4050 #### [facility] [address] [place], [address] CBC W/Diff, Automatedon 04-06 Absolute Lymph 1.42 X10 3/uL Normal 0.83-4.51 [facility] Comment on above: Order Comment: 101 Performed By: #### L 100.0500, L400.0001, M100.2200, L500.4050 #### [facility] [address] [place], [address] Absolute Neut 6.4 X10 3/uL Normal 2.0-7.7 [facility] Comment on above: Order Comment: 101 Performed By: #### L 100.0500, L400.0001, M100.2200, L500.4050 #### [facility] [address] [place], [address] Basophils/100 WBC (Bld) 0.7 % Normal 0-1 [facility] Comment on above: Order Comment: 101 Performed By: #### L 100.0500, L400.0001, M100.2200, L500.4050 #### [facility] [address] [place], [address] Eosinophils/100 WBC (Bld) 3.3 % Normal 0-5 [facility] Comment on above: Order Comment: 101 Performed By: #### L 100.0500, L400.0001, M100.2200, L500.4050 #### [facility] [address] [place], [address] Erythrocyte distribution width (RBC) [Ratio] 13.2 % Normal 11.6-14.6 [facility] Comment on above: Order Comment: 101 Performed By: #### L 100.0500, L400.0001, M100.2200, L500.4050 #### [facility] [address] [place], [address] Hematocrit (Bld) [Volume fraction] 41.5 % Normal 40-54 [facility] Comment on above: Order Comment: 101 Performed By: #### L 100.0500, L400.0001, M100.2200, L500.4050 #### [facility] [address] [place], [address] Hemoglobin (Bld) [Mass/Vol] 13.8 g/dL Normal 13.0-16.5 [facility] Comment on above: Order Comment: 101 Performed By: #### L 100.0500, L400.0001, M100.2200, L500.4050 #### [facility] [address] [place], [address] IG% 0.700 Normal 0.0-0.9 [facility] Comment on above: Order Comment: 101 Result Comment: IG% - Immature Granulocytes (promyelocytes, myelocytes and metamyelocytes) > 1% indicates that a LEFT SHIFT is Present. Performed By: #### L 100.0500, L400.0001, M100.2200, L500.4050 #### [facility] [address] [place], [address] Lymphocytes/100 WBC (Bld) 16.3 % Low 19-41 [facility] Comment on above: Order Comment: 101 Performed By: #### L 100.0500, L400.0001, M100.2200, L500.4050 #### [facility] [address] [place], [address] MCH (RBC) [Entitic mass] 31.3 pg Normal 27.0-32.0 [facility] Comment on above: Order Comment: 101 Performed By: #### L 100.0500, L400.0001, M100.2200, L500.4050 #### [facility] [address] [place], [address] MCHC (RBC) [Mass/Vol] 33.3 g/dL Normal 32-36 [facility] Comment on above: Order Comment: 101 Performed By: #### L 100.0500, L400.0001, M100.2200, L500.4050 #### [facility] [address] [place], [address] MCV (RBC) [Entitic vol] 94.1 fL High 80-94 [facility] Comment on above: Order Comment: 101 Performed By: #### L 100.0500, L400.0001, M100.2200, L500.4050 #### [facility] [address] [place], [address] Monocytes/100 WBC (Bld) 6.2 % Normal 0-10 [facility] Comment on above: Order Comment: 101 Performed By: #### L 100.0500, L400.0001, M100.2200, L500.4050 #### [facility] [address] [place], [address] Neutrophils/100 WBC (Bld) 72.8 % High 47-70 [facility] Comment on above: Order Comment: 101 Performed By: #### L 100.0500, L400.0001, M100.2200, [id number] #### [facility] [address] [place], [address] Nucleated RBC (Bld) [#/Vol] 0 10*3/uL Normal 0-5 [facility] Comment on above: Order Comment: 101 Performed By: #### L 100.0500, L400.0001, M100.2200, L500.4050 #### [facility] [address] [place], [address] Platelet mean volume (Bld) [Entitic vol] 10.8 fL Normal 6.2-12.0 [facility] Comment on above: Order Comment: 101 Performed By: #### L 100.0500, L400.0001, M100.2200, [id number] #### [facility] [address] [place], [address] Platelets (Bld) [#/Vol] 165 10*3/uL Normal 150-450 [facility] Comment on above: Order Comment: 101 Performed By: #### L 100.0500, L400.0001, M100.2200, L500.4050 #### [facility] [address] [place], [address] RBC (Bld) [#/Vol] 4.41 10*6/uL Low 4.6-6.2 [facility] Comment on above: Order Comment: 101 Performed By: #### L 100.0500, L400.0001, M100.2200, [id number] #### [facility] [address] [place], [address] RDW SD 45.2 fl High 35.1-43.9 [facility] Comment on above: Order Comment: 101 Performed By: #### L 100.0500, L400.0001, M100.2200, [id number] #### [facility] [address] [place], [address] WBC (Bld) [#/Vol] 8.7 10*3/uL Normal 4.4-11.0 [facility] Comment on above: Order Comment: 101 Performed By: #### L 100.0500, L400.0001, M100.2200, [id number] #### [facility] [address] [place], [address] Absolute Neut Normal 2.0-7.7 [facility] Comment on above: Result Comment: This specimen has been REJECTED due to Laboratory criteria: Clotted. OUTREACH has been notified of need of recollection. 04/19/24 0839 Pérez Bandar Performed By: #### L 100.0500, L400.0001, M100.2200, [id number] #### [facility] [address] [place], [address] HCT Normal 40-54 [facility] Comment on above: Result Comment: This specimen has been REJECTED due to Laboratory criteria: Clotted. OUTREACH has been notified of need of recollection. 04/19/24 0839 Pérez Bandar Performed By: #### L 100.0500, L400.0001, M100.2200, [id number] #### [facility] [address] [place], [address] HGB Normal 13.0-16.5 [facility] Comment on above: Result Comment: This specimen has been REJECTED due to Laboratory criteria: Clotted. OUTREACH has been notified of need of recollection. 04/19/24838 Pérez R Stoner Performed By: #### L 100.0500, L400.0001, M100.2200, [id number] #### [facility] [address] [place], [address] MCH Normal 27.0-32.0 [facility] Comment on above: Result Comment: This specimen has been REJECTED due to Laboratory criteria: Clotted. OUTREACH has been notified of need of recollection. 04/19/24838 Pérez R Stoner Performed By: #### L 100.0500, L400.0001, M100.2200, [id number] #### [facility] [address] [place], [address] [facility] Normal 32-36 [facility] Comment on above: Result Comment: This specimen has been REJECTED due to Laboratory criteria: Clotted. OUTREACH has been notified of need of recollection. 04/19/24838 Pérez R Stoner Performed By: #### L 100.0500, L400.0001, M100.2200, [id number] #### [facility] [address] [place], [address] MCV Normal 80-94 [facility] Comment on above: Result Comment: This specimen has been REJECTED due to Laboratory criteria: Clotted. OUTREACH has been notified of need of recollection. 04/19/24838 Pérez R Stoner Performed By: #### L 100.0500, L400.0001, M100.2200, [id number] #### [facility] [address] [place], [address] NEUT% Normal 47-70 [facility] Comment on above: Result Comment: This specimen has been REJECTED due to Laboratory criteria: Clotted. OUTREACH has been notified of need of recollection. 04/19/24838 Pérez R Stoner Performed By: #### L 100.0500, L400.0001, M100.2200, [id number] #### [facility] [address] [place], [address] PLT Normal 150-450 [facility] Comment on above: Result Comment: This specimen has been REJECTED due to Laboratory criteria: Clotted. OUTREACH has been notified of need of recollection. 04/19/24838 Pérez R Stoner Performed By: #### L 100.0500, L400.0001, M100.2200, [id number] #### [facility] [address] [place], [address] RBC Normal 4.6-6.2 [facility] Comment on above: Result Comment: This specimen has been REJECTED due to Laboratory criteria: Clotted. OUTREACH has been notified of need of recollection. 04/19/2439 Pérez R Stoner Performed By: #### L 100.0500, L400.0001, M100.2200, [id number] #### [facility] [address] [place], [address] RDW CV Normal 11.6-14.6 [facility] Comment on above: Result Comment: This specimen has been REJECTED due to Laboratory criteria: Clotted. OUTREACH has been notified of need of recollection. 04/19/2439 Pérez R Stoner Performed By: #### L 100.0500, L400.0001, M100.2200, [id number] #### [facility] [address] [place], [address] RDW SD Normal 35.1-43.9 [facility] Comment on above: Result Comment: This specimen has been REJECTED due to Laboratory criteria: Clotted. OUTREACH has been notified of need of recollection. 04/19/24838 Pérez R Stoner Performed By: #### L 100.0500, L400.0001, M100.2200, [id number] #### [facility] [address] [place], [address] WBC Normal 4.4-11.0 [facility] Comment on above: Result Comment: This specimen has been REJECTED due to Laboratory criteria: Clotted. OUTREACH has been notified of need of recollection. 04/19/24 0839 Pérez Hightower Performed By: #### L 100.0500, L400.0001, M100.2200, [id number] #### [facility] [address] [place], [place], [address] Hemoglobin A1con 04-19-2024 HbA1c (Bld) [Mass fraction] 7.3 % High 3.8-5.6 [facility] Comment on above: Result Comment: Norm al < 5.7 % Prediabetic 5.7 - 6.4 % Diabetic >or= 6.5 % Please note range changes. Performed By: #### L 100.0500, L400.0001, M100.2200, L500.4050 #### [facility] [address] [place], [place], [id number] Absolute lymphocyte countOrd ered By: Lynn Zurita on 02-23-2024 Lymphocytes Auto (Unsp spec) [#/Vol] 1.93 10*3/uL 0.83-4.51 [facility] Automated lymphocyte count a s percentage of total leukocytesOrdered By: Lynn Zurita on 02-23-2024 Lymphocytes/100 WBC Auto (Unsp spec) 25.3 % 19-41 [facility] Basophil percentageOrdered B y: Lynn Zurita on 02-23-2024 Basophils/100 WBC (Bld) 1.0 % 0-1 [facility] Bilirubin [Mass/Vol] 0.30 mg/dL 0.20-1.00 [facility] Comment on above: For patients on eltr ombopag therapy, use of Dimension [place] TBIL is not recommended. Chloride [Moles/Vol] 107 mmol/L 98-107 [facility] Eosinophils/100 WBC (Bld) 2.7 % 0-5 [facility] Glucose [Mass/Vol] 147 mg/dL 74-106 [facility] Comment on above: Fasting Glucose resu lt greater than or equal to 126 mg/dL suggests DIABETES MELLITUS per A.D.A. criteria. Hemoglobin (Bld) [Mass/Vol] 14.8 g/dL 13.0-16.5 [facility] Monocytes/100 WBC (Bld) 8.2 % 0-10 [facility] Neutrophils (Bld) [#/Vol] 4.7 10*3/uL 2.0-7.7 [facility] Neutrophils/100 WBC (Bld) 61.5 % 47-70 [facility] Potassium [Moles/Vol] 3.9 mmol/L 3.5-5.1 [facility] Protein [Mass/Vol] 6.9 g/dL 6.4-8.2 [facility] Sodium [Moles/Vol] 141 mmol/L 136-145 [facility] WBC (Bld) [#/Vol] 7.6 10*3/uL 4.4-11.0 [facility] Determination of erythrocyte mean corpuscular volume (MCV)Ordered By: Lynn Zurita on 02-23-2024 MCV (RBC) [Entitic vol] 94.1 fL 80-94 [facility] Erythrocyte distribution wid th ratioOrdered By: Lynnluke Zurita on 02-23-2024 Erythrocyte distribution width (RBC) [Ratio] 12.9 % 11.6-14.6 [facility] Erythrocyte distribution wid th standard deviationOrdered By: Lynnluke Zurita on 02-23-2024 Erythrocyte distribution width (RBC) [Entitic vol] 44.2 fL 35.1-43.9 [facility] Hematocrit Auto (Bld) [Volum e fraction]Ordered By: Lynn Zurita on 02-23-2024 Hematocrit (Bld) [Volume fraction] 44.3 % 40-54 [facility] Immature granulocytes/100 WB C Auto (Bld)Ordered By: Lynn Zurita on 02-23-2024 Immature granulocytes/100 WBC (Bld) 1.300 % 0.0-0.9 [facility] Comment on above: IG% - Immature Granu locytes (promyelocytes, myelocytes and metamyelocytes) > 1% indicates that a LEFT SHIFT is Present. Laboratory - Chemistry and C hemistry - challengeOrdered By: Lynn Zurita on 02-23-2024 Albumin/Globulin [Mass ratio] 1.1 {ratio} 0.9-2.4 [facility] ALP [Catalytic activity/Vol] 81 U/L 45-117 [facility] ALT [Catalytic activity/Vol] 75 U/L 16-61 [facility] CO2 [Moles/Vol] 25.0 mmol/L 21.0-32.0 [facility] Globulin (S) [Mass/Vol] 3.3 g/dL 2.2-4.2 [facility] Lipase [Catalytic activity/Vol] 70 U/L 13-75 [facility] Comment on above: Please note:LIPASE r evised reference range effective 23. New Lipase methodology. Expected to produce lower values than the previous assay method. NEW Reference Range: 13 - 75 U/L Urea nitrogen/Creatinine [Mass ratio] 11.8 mg/mg 10-20 [facility] - Hematology and Cell countsOrdered By: Lynn Zurita on 02-23-2024 MCH (RBC) [Entitic mass] 31.4 pg 27.0-32.0 [facility] MCHC (RBC) [Mass/Vol] 33.4 g/dL 32-36 [facility] Nucleated RBC/100 WBC (Bld) [Ratio] 0 % 0-5 [facility] Platelet mean volume (Bld) [Entitic vol] 10.9 fL 6.2-12.0 [facility] Platelets (Bld) [#/Vol] 185 10*3/uL 150-450 [facility] No Panel InformationOrdered By: Lynn Zurita on 02-23-2024 Estimated GFR (MDRD) Amer 93 mL/min >60 [facility] Comment on above: GFR Calc Estimated GFR (MDRD) Non-Af Amer 77 mL/min >60 [facility] Comment on above: Non- GFR Calc RBC Auto (Bld) [#/Vol]Ordere d By: Lynn Zurita on 02-23-2024 RBC (Bld) [#/Vol] 4.71 10*6/uL 4.6-6.2 [facility] Serum or plasma calcium federico urement (mass/volume)Ordered By: Lynn Zurita on 02-23-2024 Calcium [Mass/Vol] 8.9 mg/dL 8.5-10.1 [facility] Serum or plasma creatinine m easurement (mass/volume)Ordered By: Lynn Zurita on 02-23-2024 Creatinine [Mass/Vol] 1.02 mg/dL 0.70-1.30 [facility] Comment on above: The validity of the calculated GFR & GFRAA in patients over 70 years has not been determined. Clinical correlation is essential. Serum or plasma urea nitroge n measurement (mass/volume)Ordered By: Lynn Zurita on 02-23-2024 Urea nitrogen [Mass/Vol] 12 mg/dL 7-18 [facility] Thin prep Papanicolaou smear with manual screeningOrdered By: Lynnluke Zurita on 02-23-2024 Thin prep Papanicolaou smear with manual screening 3.6 g/dL 3.2-5.0 [facility] Thin prep Papanicolaou smear with manual screening 36 U/L 15-37 [facility] Thin prep Papanicolaou smear with manual screening 9 5-15 [facility] Absolute lymphocyte countOrd ered By: Lynn Zurita on 01-25-2024 Lymphocytes Auto (Unsp spec) [#/Vol] 2.04 10*3/uL 0.83-4.51 [facility] Automated lymphocyte count a s percentage of total leukocytesOrdered By: Lynn Zurita on 01-25-2024 Lymphocytes/100 WBC Auto (Unsp spec) 26.4 % 19-41 [facility] Basophil percentageOrdered B y: Lynn Zurita on 01-25-2024 Basophils/100 WBC (Bld) 0.8 % 0-1 [facility] Eosinophils/100 WBC (Bld) 2.5 % 0-5 [facility] Hemoglobin (Bld) [Mass/Vol] 14.7 g/dL 13.0-16.5 [facility] Monocytes/100 WBC (Bld) 6.6 % 0-10 [facility] Neutrophils (Bld) [#/Vol] 4.8 10*3/uL 2.0-7.7 [facility] Neutrophils/100 WBC (Bld) 62.4 % 47-70 [facility] WBC (Bld) [#/Vol] 7.7 10*3/uL 4.4-11.0 [facility] Determination of erythrocyte mean corpuscular volume (MCV)Ordered By: Lynn Zurita on 01-25-2024 MCV (RBC) [Entitic vol] 95.1 fL 80-94 [facility] Erythrocyte distribution wid th ratioOrdered By: Lynn Zurita on 01-25-2024 Erythrocyte distribution width (RBC) [Ratio] 13.0 % 11.6-14.6 [facility] Erythrocyte distribution wid th standard deviationOrdered By: Lynnluke Zurita on 01-25-2024 Erythrocyte distribution width (RBC) [Entitic vol] 45.4 fL 35.1-43.9 [facility] Hematocrit Auto (Bld) [Volum e fraction]Ordered By: Lynn Zurita on 01-25-2024 Hematocrit (Bld) [Volume fraction] 44.9 % 40-54 [facility] Immature granulocytes/100 WB C Auto (Bld)Ordered By: Lynn Zurita on 01-25-2024 Immature granulocytes/100 WBC (Bld) 1.300 % 0.0-0.9 [facility] Comment on above: IG% - Immature Granu locytes (promyelocytes, myelocytes and metamyelocytes) > 1% indicates that a LEFT SHIFT is Present. Laboratory - Hematology and Cell countsOrdered By: Lynn Zurita on 01-25-2024 MCH (RBC) [Entitic mass] 31.1 pg 27.0-32.0 [facility] MCHC (RBC) [Mass/Vol] 32.7 g/dL 32-36 [facility] Nucleated RBC/100 WBC (Bld) [Ratio] 0 % 0-5 [facility] Platelet mean volume (Bld) [Entitic vol] 11.1 fL 6.2-12.0 [facility] Platelets (Bld) [#/Vol] 192 10*3/uL 150-450 [facility] RBC Auto (Bld) [#/Vol]Ordere d By: Lynn Zurita on 01-25-2024 RBC (Bld) [#/Vol] 4.72 10*6/uL 4.6-6.2 [facility] Absolute lymphocyte countOrd ered By: Lynn Zurita on 12-28-2023 Lymphocytes Auto (Unsp spec) [#/Vol] 1.63 10*3/uL 0.83-4.51 [facility] Automated lymphocyte count a s percentage of total leukocytesOrdered By: Lynn Zurita on 12-28-2023 Lymphocytes/100 WBC Auto (Unsp spec) 21.3 % 19-41 [facility] Basophil percentageOrdered B y: Lynn Zurita on 12-28-2023 Basophils/100 WBC (Bld) 0.8 % 0-1 [facility] Eosinophils/100 WBC (Bld) 3.5 % 0-5 [facility] Hemoglobin (Bld) [Mass/Vol] 14.7 g/dL 13.0-16.5 [facility] Monocytes/100 WBC (Bld) 8.1 % 0-10 [facility] Neutrophils (Bld) [#/Vol] 5.0 10*3/uL 2.0-7.7 [facility] Neutrophils/100 WBC (Bld) 65.0 % 47-70 [facility] WBC (Bld) [#/Vol] 7.7 10*3/uL 4.4-11.0 [facility] Determination of erythrocyte mean corpuscular volume (MCV)Ordered By: Lynn Zurita on 12-28-2023 MCV (RBC) [Entitic vol] 94.6 fL 80-94 [facility] Erythrocyte distribution wid th ratioOrdered By: Lynn Zurita on 12-28-2023 Erythrocyte distribution width (RBC) [Ratio] 13.2 % 11.6-14.6 [facility] Erythrocyte distribution wid th standard deviationOrdered By: Lynn Zurita on 12-28-2023 Erythrocyte distribution width (RBC) [Entitic vol] 45.2 fL 35.1-43.9 [facility] Hematocrit Auto (Bld) [Volum e fraction]Ordered By: Lynn Zurita on 12-28-2023 Hematocrit (Bld) [Volume fraction] 44.1 % 40-54 [facility] Immature granulocytes/100 WB C Auto (Bld)Ordered By: Lynn Zurita on 12-28-2023 Immature granulocytes/100 WBC (Bld) 1.300 % 0.0-0.9 [facility] Comment on above: IG% - Immature Granu locytes (promyelocytes, myelocytes and metamyelocytes) > 1% indicates that a LEFT SHIFT is Present. Laboratory - Hematology and Cell countsOrdered By: Lynn Zurita on 12-28-2023 MCH (RBC) [Entitic mass] 31.5 pg 27.0-32.0 [facility] MCHC (RBC) [Mass/Vol] 33.3 g/dL 32-36 [facility] Nucleated RBC/100 WBC (Bld) [Ratio] 0 % 0-5 [facility] Platelet mean volume (Bld) [Entitic vol] 11.2 fL 6.2-12.0 [facility] Platelets (Bld) [#/Vol] 175 10*3/uL 150-450 [facility] RBC Auto (Bld) [#/Vol]Ordere d By: Lynn Zurita on 12-28-2023 RBC (Bld) [#/Vol] 4.66 10*6/uL 4.6-6.2 [facility] Absolute lymphocyte countOrd ered By: Lynn Zurita on 12-01-2023 Lymphocytes Auto (Unsp spec) [#/Vol] 1.42 10*3/uL 0.83-4.51 [facility] Automated lymphocyte count a s percentage of total leukocytesOrdered By: Lynn Zurita on 12-01-2023 Lymphocytes/100 WBC Auto (Unsp spec) 21.4 % 19-41 [facility] Basophil percentageOrdered B y: Lynn Zurita on 12-01-2023 Basophils/100 WBC (Bld) 0.8 % 0-1 [facility] Eosinophils/100 WBC (Bld) 4.2 % 0-5 [facility] Hemoglobin (Bld) [Mass/Vol] 13.6 g/dL 13.0-16.5 [facility] Monocytes/100 WBC (Bld) 9.2 % 0-10 [facility] Neutrophils (Bld) [#/Vol] 4.2 10*3/uL 2.0-7.7 [facility] Neutrophils/100 WBC (Bld) 62.6 % 47-70 [facility] WBC (Bld) [#/Vol] 6.6 10*3/uL 4.4-11.0 [facility] Determination of erythrocyte mean corpuscular volume (MCV)Ordered By: Lynn Zurita on 12-01-2023 MCV (RBC) [Entitic vol] 94.4 fL 80-94 [facility] Erythrocyte distribution wid th ratioOrdered By: Lynn Zurita on 12-01-2023 Erythrocyte distribution width (RBC) [Ratio] 13.2 % 11.6-14.6 [facility] Erythrocyte distribution wid th standard deviationOrdered By: Lynn Zurita on 12-01-2023 Erythrocyte distribution width (RBC) [Entitic vol] 45.2 fL 35.1-43.9 [facility] Hematocrit Auto (Bld) [Volum e fraction]Ordered By: Lynn Zurita on 12-01-2023 Hematocrit (Bld) [Volume fraction] 40.7 % 40-54 [facility] Immature granulocytes/100 WB C Auto (Bld)Ordered By: Lynn Zurita on 12-01-2023 Immature granulocytes/100 WBC (Bld) 1.800 % 0.0-0.9 [facility] Comment on above: IG% - Immature Granu locytes (promyelocytes, myelocytes and metamyelocytes) > 1% indicates that a LEFT SHIFT is Present. Laboratory - Hematology and Cell countsOrdered By: Lynn Zurita on 12-01-2023 MCH (RBC) [Entitic mass] 31.6 pg 27.0-32.0 [facility] MCHC (RBC) [Mass/Vol] 33.4 g/dL 32-36 [facility] Nucleated RBC/100 WBC (Bld) [Ratio] 0 % 0-5 [facility] Platelets (Bld) [#/Vol] 185 10*3/uL 150-450 [facility] Platelet mean volume Link-Ec ker (Bld) [Entitic vol]Ordered By: Lynn Zurita on 12-01-2023 Platelet mean volume (Bld) [Entitic vol] 11.1 fL 6.2-12.0 [facility] RBC Auto (Bld) [#/Vol]Ordere d By: Lynn Zurita on 12-01-2023 RBC (Bld) [#/Vol] 4.31 10*6/uL 4.6-6.2 [facility] Absolute lymphocyte countOrd ered By: Lynn Zurita on 11-30-2023 Lymphocytes Auto (Unsp spec) [#/Vol] 1.65 10*3/uL 0.83-4.51 [facility] Automated lymphocyte count a s percentage of total leukocytesOrdered By: Lynn Zurita on 11-30-2023 Lymphocytes/100 WBC Auto (Unsp spec) 28.8 % 19-41 [facility] Basophil percentageOrdered B y: Lynn Zurita on 11-30-2023 Basophils/100 WBC (Bld) 0.5 % 0-1 [facility] Eosinophils/100 WBC (Bld) 3.8 % 0-5 [facility] Hemoglobin (Bld) [Mass/Vol] 13.3 g/dL 13.0-16.5 [facility] Monocytes/100 WBC (Bld) 11.0 % 0-10 [facility] Neutrophils (Bld) [#/Vol] 3.1 10*3/uL 2.0-7.7 [facility] Neutrophils/100 WBC (Bld) 54.9 % 47-70 [facility] WBC (Bld) [#/Vol] 5.7 10*3/uL 4.4-11.0 [facility] Determination of erythrocyte mean corpuscular volume (MCV)Ordered By: Lynn Zurita on 11-30-2023 MCV (RBC) [Entitic vol] 95.2 fL 80-94 [facility] Erythrocyte distribution wid th ratioOrdered By: Lynn Zurita on 11-30-2023 Erythrocyte distribution width (RBC) [Ratio] 13.3 % 11.6-14.6 [facility] Erythrocyte distribution wid th standard deviationOrdered By: Lynn Zurita on 11-30-2023 Erythrocyte distribution width (RBC) [Entitic vol] 46.9 fL 35.1-43.9 [facility] Hematocrit Auto (Bld) [Volum e fraction]Ordered By: Lynn Zurita on 11-30-2023 Hematocrit (Bld) [Volume fraction] 39.7 % 40-54 [facility] Immature granulocytes/100 WB C Auto (Bld)Ordered By: Lynn Zurita on 11-30-2023 Immature granulocytes/100 WBC (Bld) 1.000 % 0.0-0.9 [facility] Comment on above: IG% - Immature Granu locytes (promyelocytes, myelocytes and metamyelocytes) > 1% indicates that a LEFT SHIFT is Present. Laboratory - Hematology and Cell countsOrdered By: Lynn Zurita on 11-30-2023 MCH (RBC) [Entitic mass] 31.9 pg 27.0-32.0 [facility] MCHC (RBC) [Mass/Vol] 33.5 g/dL 32-36 [facility] Nucleated RBC/100 WBC (Bld) [Ratio] 0 % 0-5 [facility] Platelets (Bld) [#/Vol] 171 10*3/uL 150-450 [facility] Platelet mean volume Link-Ec ker (Bld) [Entitic vol]Ordered By: Lynn Zurita on 11-30-2023 Platelet mean volume (Bld) [Entitic vol] 10.8 fL 6.2-12.0 [facility] RBC Auto (Bld) [#/Vol]Ordere d By: Lynn Zurita on 11-30-2023 RBC (Bld) [#/Vol] 4.17 10*6/uL 4.6-6.2 [facility] Absolute lymphocyte countOrd ered By: Lynn Zurita on 11-02-2023 Lymphocytes Auto (Unsp spec) [#/Vol] 1.74 10*3/uL 0.83-4.51 [facility] Basophil percentageOrdered B y: Lynn Zurita on 11-02-2023 Basophils/100 WBC (Bld) 0.5 % 0-1 [facility] Eosinophils/100 WBC (Bld) 2.6 % 0-5 [facility] Neutrophils (Bld) [#/Vol] 5.0 10*3/uL 2.0-7.7 [facility] Neutrophils/100 WBC (Bld) 65.7 % 47-70 [facility] WBC (Bld) [#/Vol] 7.6 10*3/uL 4.4-11.0 [facility] Blood erythrocytes count (nu mber/volume)Ordered By: Lynn Zurita on 11-02-2023 RBC (Bld) [#/Vol] 4.31 10*6/uL 4.6-6.2 [facility] Blood hemoglobin measurement (mass/volume)Ordered By: Lynn Zurita on 11-02-2023 Hemoglobin (Bld) [Mass/Vol] 13.5 g/dL 13.0-16.5 [facility] Blood lymphocytes/100 leukoc ytesOrdered By: Lynn Zurita on 11-02-2023 Lymphocytes/100 WBC (Bld) 23.0 % 19-41 [facility] Blood monocytes/100 leukocyt esOrdered By: Lynn Zurita on 11-02-2023 Monocytes/100 WBC (Bld) 7.0 % 0-10 [facility] Blood platelet mean volumeOr dered By: Lynn Zurita on 11-02-2023 Platelet mean volume (Bld) [Entitic vol] 11.0 fL 6.2-12.0 [facility] Determination of erythrocyte mean corpuscular volume (MCV)Ordered By: Lynn Zurita on 11-02-2023 MCV (RBC) [Entitic vol] 95.4 fL 80-94 [facility] Hematocrit Auto (Bld) [Volum e fraction]Ordered By: Lynn Zurita on 11-02-2023 Hematocrit (Bld) [Volume fraction] 41.1 % 40-54 [facility] - Hematology and Cell countsOrdered By: Lynn Zurita on 11-02-2023 Erythrocyte distribution width (RBC) [Entitic vol] 47.2 fL 35.1-43.9 [facility] Erythrocyte distribution width (RBC) [Ratio] 13.3 % 11.6-14.6 [facility] Immature granulocytes/100 WBC (Bld) 1.200 % 0.0-0.9 [facility] Comment on above: IG% - Immature Granu locytes (promyelocytes, myelocytes and metamyelocytes) > 1% indicates that a LEFT SHIFT is Present. MCH (RBC) [Entitic mass] 31.3 pg 27.0-32.0 [facility] Nucleated RBC/100 WBC (Bld) [Ratio] 0 % 0-5 [facility] MCHC Auto (RBC) [Mass/Vol]Or dered By: Lynn Zurita on 11-02-2023 MCHC (RBC) [Mass/Vol] 32.8 g/dL 32-36 [facility] Platelets bldOrdered By: Nano Zurita on 11-02-2023 Platelets (Bld) [#/Vol] 188 10*3/uL 150-450 [facility] Absolute lymphocyte countOrd ered By: Lynn Zurita on 10-05-2023 Lymphocytes Auto (Unsp spec) [#/Vol] 1.38 10*3/uL 0.83-4.51 [facility] Basophil percentageOrdered B y: Lynn Zurita on 10-05-2023 Basophils/100 WBC (Bld) 0.7 % 0-1 [facility] Eosinophils/100 WBC (Bld) 3.0 % 0-5 [facility] Neutrophils (Bld) [#/Vol] 5.1 10*3/uL 2.0-7.7 [facility] Neutrophils/100 WBC (Bld) 69.1 % 47-70 [facility] WBC (Bld) [#/Vol] 7.4 10*3/uL 4.4-11.0 [facility] Blood erythrocytes count (nu mber/volume)Ordered By: Lynn Zurita on 10-05-2023 RBC (Bld) [#/Vol] 4.52 10*6/uL 4.6-6.2 [facility] Blood hemoglobin measurement (mass/volume)Ordered By: Lynn Zurita on 10-05-2023 Hemoglobin (Bld) [Mass/Vol] 14.5 g/dL 13.0-16.5 [facility] Blood lymphocytes/100 leukoc ytesOrdered By: Lynn Zurita on 10-05-2023 Lymphocytes/100 WBC (Bld) 18.7 % 19-41 [facility] Blood monocytes/100 leukocyt esOrdered By: Lynn Zurita on 10-05-2023 Monocytes/100 WBC (Bld) 7.4 % 0-10 [facility] Blood platelet mean volumeOr dered By: Lynn Zurita on 10-05-2023 Platelet mean volume (Bld) [Entitic vol] 10.8 fL 6.2-12.0 [facility] Determination of erythrocyte mean corpuscular volume (MCV)Ordered By: Lynn Zurita on 10-05-2023 MCV (RBC) [Entitic vol] 97.6 fL 80-94 [facility] Hematocrit Auto (Bld) [Volum e fraction]Ordered By: Lynn Zurita on 10-05-2023 Hematocrit (Bld) [Volume fraction] 44.1 % 40-54 [facility] - Hematology and Cell countsOrdered By: Lynn Zurita on 10-05-2023 Erythrocyte distribution width (RBC) [Entitic vol] 49.1 fL 35.1-43.9 [facility] Erythrocyte distribution width (RBC) [Ratio] 13.7 % 11.6-14.6 [facility] Immature granulocytes/100 WBC (Bld) 1.100 % 0.0-0.9 [facility] Comment on above: IG% - Immature Granu locytes (promyelocytes, myelocytes and metamyelocytes) > 1% indicates that a LEFT SHIFT is Present. MCH (RBC) [Entitic mass] 32.1 pg 27.0-32.0 [facility] Nucleated RBC/100 WBC (Bld) [Ratio] 0 % 0-5 [facility] MCHC Auto (RBC) [Mass/Vol]Or dered By: Lynn Zurita on 10-05-2023 MCHC (RBC) [Mass/Vol] 32.9 g/dL 32-36 [facility] Platelets bldOrdered By: Nano Zurita on 10-05-2023 Platelets (Bld) [#/Vol] 159 10*3/uL 150-450 [facility] Basophil percentageOrdered B y: Lynn Zurita on 09-11-2023 Bilirubin [Mass/Vol] 0.60 mg/dL 0.20-1.00 [facility] Comment on above: For patients on eltr ombopag therapy, use of [employer] TBIL is not recommended. Chloride [Moles/Vol] 107 mmol/L 98-107 [facility] Glucose [Mass/Vol] 128 mg/dL 74-106 [facility] Comment on above: Fasting Glucose resu lt greater than or equal to 126 mg/dL suggests DIABETES MELLITUS per A.D.A. criteria. Potassium [Moles/Vol] 4.4 mmol/L 3.5-5.1 [facility] Protein [Mass/Vol] 7.3 g/dL 6.4-8.2 [facility] Sodium [Moles/Vol] 138 mmol/L 136-145 [facility] Laboratory - Chemistry and C hemistry - challengeOrdered By: Lynn Zurita on 09-11-2023 ALP [Catalytic activity/Vol] 86 U/L 45-117 [facility] ALT [Catalytic activity/Vol] 103 U/L 16-61 [facility] CO2 [Moles/Vol] 24.0 mmol/L 21.0-32.0 [facility] Globulin (S) [Mass/Vol] 4.1 g/dL 2.2-4.2 [facility] Urea nitrogen/Creatinine [Mass ratio] 14.9 mg/mg 10-20 [facility] No Panel InformationOrdered By: Lynn Zurita on 09-11-2023 Estimated GFR (MDRD) Amer 82 mL/min >60 [facility] Comment on above: GFR Calc Estimated GFR (MDRD) Non-Af Amer 68 mL/min >60 [facility] Comment on above: Non- GFR Calc Serum or plasma albumin federico urement (mass/volume)Ordered By: Lynn Zurita on 09-11-2023 Albumin [Mass/Vol] 3.2 g/dL 3.2-5.0 [facility] Serum or plasma albumin/glob ulin mass ratioOrdered By: Lynn Zurita on 09-11-2023 Albumin/Globulin [Mass ratio] 0.8 {ratio} 0.9-2.4 [facility] Serum or plasma calcium federico urement (mass/volume)Ordered By: Lynn Zurita on 09-11-2023 Calcium [Mass/Vol] 8.8 mg/dL 8.5-10.1 [facility] Serum or plasma creatinine m easurement (mass/volume)Ordered By: Lynn Zurita on 09-11-2023 Creatinine [Mass/Vol] 1.14 mg/dL 0.70-1.30 [facility] Comment on above: The validity of the calculated GFR & GFRAA in patients over 70 years has not been determined. Clinical correlation is essential. Serum or plasma urea nitroge n measurement (mass/volume)Ordered By: Lynn Zurita on 09-11-2023 Urea nitrogen [Mass/Vol] 17 mg/dL 7-18 [facility] Thin prep Papanicolaou smear with manual screeningOrdered By: Lynn Zurita on 09-11-2023 Thin prep Papanicolaou smear with manual screening 45 U/L 15-37 [facility] Thin prep Papanicolaou smear with manual screening 7 5-15 [facility] Absolute lymphocyte countOrd ered By: Lynn Zurita on 09-07-2023 Lymphocytes Auto (Unsp spec) [#/Vol] 2.50 10*3/uL 0.83-4.51 [facility] Basophil percentageOrdered B y: Lynn Zurita on 09-07-2023 Basophil percentage Not Reportable [facility] Neutrophils (Bld) [#/Vol] 4.4 10*3/uL 2.0-7.7 [facility] WBC (Bld) [#/Vol] 7.9 10*3/uL 4.4-11.0 [facility] Blood eosinophils/100 leukoc ytesOrdered By: Lynn Zurita on 09-07-2023 Eosinophils/100 WBC (Bld) 2 % 0-5 [facility] Blood erythrocytes count (nu mber/volume)Ordered By: Lynn Zurita on 09-07-2023 RBC (Bld) [#/Vol] 4.55 10*6/uL 4.6-6.2 [facility] Blood hemoglobin measurement (mass/volume)Ordered By: Lynn Zurita on 09-07-2023 Hemoglobin (Bld) [Mass/Vol] 14.4 g/dL 13.0-16.5 [facility] Blood lymphocytes/100 leukoc ytesOrdered By: Lynn Zurita on 09-07-2023 Lymphocytes/100 WBC (Bld) 32 % 19-41 [facility] Blood monocytes/100 leukocyt esOrdered By: Lynn Zurita on 09-07-2023 Monocytes/100 WBC (Bld) 10 % 0-10 [facility] Blood platelet adequacy dete ction by light microscopyOrdered By: Lynn Zurita on 09-07-2023 Platelets LM Ql (Bld) ADEQUATE ADEQ [facility] Blood platelet mean volumeOr dered By: Lynn Zurita on 09-07-2023 Platelet mean volume (Bld) [Entitic vol] 10.3 fL 6.2-12.0 [facility] Blood segmented neutrophils/ 100 leukocytesOrdered By: Lynn Zurita on 09-07-2023 Segmented neutrophils/100 WBC (Bld) 56 % 47-70 [facility] Determination of erythrocyte mean corpuscular volume (MCV)Ordered By: Lynn Zurita on 09-07-2023 MCV (RBC) [Entitic vol] 97.8 fL 80-94 [facility] Hematocrit Auto (Bld) [Volum e fraction]Ordered By: Lynn Zurita on 09-07-2023 Hematocrit (Bld) [Volume fraction] 44.5 % 40-54 [facility] - Hematology and Cell countsOrdered By: Lynn Zurita on 09-07-2023 Erythrocyte distribution width (RBC) [Entitic vol] 47.1 fL 35.1-43.9 [facility] Erythrocyte distribution width (RBC) [Ratio] 13.2 % 11.6-14.6 [facility] MCH (RBC) [Entitic mass] 31.6 pg 27.0-32.0 [facility] MCHC Auto (RBC) [Mass/Vol]Or dered By: Lynn Zurita on 09-07-2023 MCHC (RBC) [Mass/Vol] 32.4 g/dL 32-36 [facility] Platelets bldOrdered By: Nano Zurita on 09-07-2023 Platelets (Bld) [#/Vol] 195 10*3/uL 150-450 [facility] RBC morphologyOrdered By: Radames Zurita on 09-07-2023 RBC morphology finding Nom (Bld) NORM C+C NORMAL NORM C&C [facility] Review by pathologistOrdered By: Lynn Zurita on 09-07-2023 Pathologist review Rob (Unsp spec) [Interp] Reviewed [facility] Comment on above: Previous reported re sult: Augusta perez Edited by: CCRYTZER on 09/11/23:822Neutrophilic left shift.MacrocytosisClinical correlation necessary.Cain Beaver M.D. 09/08/23 AMENDED REPORT 09/11/[id number] PATH REV previously reported as: Augusta perez Total cell countOrdered By: Lynn Zurita on 09-07-2023 Cells counted Mol[employer] (Bld/Tiss) [#] 100 MANUAL DIFF [facility] Basophil percentageOrdered B y: Lynn Zurita on 08-21-2023 Chloride [Moles/Vol] 108 mmol/L 98-107 [facility] Glucose [Mass/Vol] 132 mg/dL 74-106 [facility] Comment on above: Fasting Glucose resu lt greater than or equal to 126 mg/dL suggests DIABETES MELLITUS per A.D.A. criteria. Potassium [Moles/Vol] 4.1 mmol/L 3.5-5.1 [facility] Sodium [Moles/Vol] 142 mmol/L 136-145 [facility] - Chemistry and C hemistry - challengeOrdered By: Lynn Zurita on 08-21-2023 CO2 [Moles/Vol] 27.0 mmol/L 21.0-32.0 [facility] Urea nitrogen/Creatinine [Mass ratio] 15.5 mg/mg 10- [facility] No Panel InformationOrdered By: Lynn Zurita on 08-21-2023 Estimated GFR (MDRD) Amer 86 mL/min >60 [facility] Comment on above: GFR Calc Estimated GFR (MDRD) Non-Af Amer 71 mL/min >60 [facility] Comment on above: Non- GFR Calc Serum or plasma calcium federico urement (mass/volume)Ordered By: Lynn Zurita on 08-21-2023 Calcium [Mass/Vol] 9.0 mg/dL 8.5-10.1 [facility] Serum or plasma creatinine m easurement (mass/volume)Ordered By: Lynn Zurita on 08-21-2023 Creatinine [Mass/Vol] 1.10 mg/dL 0.70-1.30 [facility] Comment on above: The validity of the calculated GFR & GFRAA in patients over 70 years has not been determined. Clinical correlation is essential. Serum or plasma urea nitroge n measurement (mass/volume)Ordered By: Lynn Zurita on 08-21-2023 Urea nitrogen [Mass/Vol] 17 mg/dL 7-18 [facility] Thin prep Papanicolaou smear with manual screeningOrdered By: Lynn Zurita on 08-21-2023 Thin prep Papanicolaou smear with manual screening 7 5-15 [facility] Absolute lymphocyte countOrd ered By: Lynn Zurita on 08-10-2023 Lymphocytes Auto (Unsp spec) [#/Vol] 2.13 10*3/uL 0.83-4.51 [facility] Basophil percentageOrdered B y: Lynn Zurita on 08-10-2023 Basophils/100 WBC (Bld) 0.7 % 0-1 [facility] Eosinophils/100 WBC (Bld) 2.8 % 0-5 [facility] Neutrophils (Bld) [#/Vol] 3.9 10*3/uL 2.0-7.7 [facility] Neutrophils/100 WBC (Bld) 56.7 % 47-70 [facility] WBC (Bld) [#/Vol] 6.9 10*3/uL 4.4-11.0 [facility] Blood erythrocytes count (nu mber/volume)Ordered By: Lynn Zurita on 08-10-2023 RBC (Bld) [#/Vol] 4.20 10*6/uL 4.6-6.2 [facility] Blood hemoglobin measurement (mass/volume)Ordered By: Lynn Zurita on 08-10-2023 Hemoglobin (Bld) [Mass/Vol] 14.2 g/dL 13.0-16.5 [facility] Blood lymphocytes/100 leukoc ytesOrdered By: Lynn Zurita on 08-10-2023 Lymphocytes/100 WBC (Bld) 31.0 % 19-41 [facility] Blood monocytes/100 leukocyt esOrdered By: Lynn Zurita on 08-10-2023 Monocytes/100 WBC (Bld) 7.9 % 0-10 [facility] Blood platelet mean volumeOr dered By: Lynn Zurita on 08-10-2023 Platelet mean volume (Bld) [Entitic vol] 10.9 fL 6.2-12.0 [facility] Determination of erythrocyte mean corpuscular volume (MCV)Ordered By: Lynn Zurita on 08-10-2023 MCV (RBC) [Entitic vol] 96.0 fL 80-94 [facility] Hematocrit Auto (Bld) [Volum e fraction]Ordered By: Lynn Zurita on 08-10-2023 Hematocrit (Bld) [Volume fraction] 40.3 % 40-54 [facility] - Hematology and Cell countsOrdered By: Lynn Zurita on 08-10-2023 Erythrocyte distribution width (RBC) [Entitic vol] 46.2 fL 35.1-43.9 [facility] Erythrocyte distribution width (RBC) [Ratio] 13.2 % 11.6-14.6 [facility] Immature granulocytes/100 WBC (Bld) 0.900 % 0.0-0.9 [facility] Comment on above: IG% - Immature Granu locytes (promyelocytes, myelocytes and metamyelocytes) > 1% indicates that a LEFT SHIFT is Present. MCH (RBC) [Entitic mass] 33.8 pg 27.0-32.0 [facility] Nucleated RBC/100 WBC (Bld) [Ratio] 0 % 0-5 [facility] MCHC Auto (RBC) [Mass/Vol]Or dered By: Lynn Zurita on 08-10-2023 MCHC (RBC) [Mass/Vol] 35.2 g/dL 32-36 [facility] Platelets bldOrdered By: Nano Zurita on 08-10-2023 Platelets (Bld) [#/Vol] 143 10*3/uL 150-450 [facility] Absolute lymphocyte countOrd ered By: Lynn Zurita on 07-13-2023 Lymphocytes Auto (Unsp spec) [#/Vol] 1.47 10*3/uL 0.83-4.51 [facility] Basophil percentageOrdered B y: Lynn Zurita on 07-13-2023 Basophils/100 WBC (Bld) 0.5 % 0-1 [facility] Eosinophils/100 WBC (Bld) 2.3 % 0-5 [facility] Neutrophils (Bld) [#/Vol] 5.0 10*3/uL 2.0-7.7 [facility] Neutrophils/100 WBC (Bld) 68.1 % 47-70 [facility] WBC (Bld) [#/Vol] 7.4 10*3/uL 4.4-11.0 [facility] Blood erythrocytes count (nu mber/volume)Ordered By: Lynn Zurita on 07-13-2023 RBC (Bld) [#/Vol] 4.34 10*6/uL 4.6-6.2 [facility] Blood hemoglobin measurement (mass/volume)Ordered By: Lynn Zurita on 07-13-2023 Hemoglobin (Bld) [Mass/Vol] 14.2 g/dL 13.0-16.5 [facility] Blood lymphocytes/100 leukoc ytesOrdered By: Lynn Zurita on 07-13-2023 Lymphocytes/100 WBC (Bld) 19.9 % 19-41 [facility] Blood monocytes/100 leukocyt esOrdered By: Lynn Zurita on 07-13-2023 Monocytes/100 WBC (Bld) 8.0 % 0-10 [facility] Blood platelet mean volumeOr dered By: Lynn Zurita on 07-13-2023 Platelet mean volume (Bld) [Entitic vol] 10.8 fL 6.2-12.0 [facility] Determination of erythrocyte mean corpuscular volume (MCV)Ordered By: Lynn Zurita on 07-13-2023 MCV (RBC) [Entitic vol] 93.8 fL 80-94 [facility] Hematocrit Auto (Bld) [Volum e fraction]Ordered By: Lynn Zurita on 07-13-2023 Hematocrit (Bld) [Volume fraction] 40.7 % 40-54 [facility] - Hematology and Cell countsOrdered By: Lynn Zurita on 07-13-2023 Erythrocyte distribution width (RBC) [Entitic vol] 45.5 fL 35.1-43.9 [facility] Erythrocyte distribution width (RBC) [Ratio] 13.4 % 11.6-14.6 [facility] Immature granulocytes/100 WBC (Bld) 1.200 % 0.0-0.9 [facility] Comment on above: IG% - Immature Granu locytes (promyelocytes, myelocytes and metamyelocytes) > 1% indicates that a LEFT SHIFT is Present. MCH (RBC) [Entitic mass] 32.7 pg 27.0-32.0 [facility] Nucleated RBC/100 WBC (Bld) [Ratio] 0 % 0-5 [facility] MCHC Auto (RBC) [Mass/Vol]Or dered By: Lynn Zurita on 07-13-2023 MCHC (RBC) [Mass/Vol] 34.9 g/dL 32-36 [facility] Platelets bldOrdered By: Nano Zurita on 07-13-2023 Platelets (Bld) [#/Vol] 157 10*3/uL 150-450 [facility] No Panel InformationOrdered By: Lynn Zurita on 06-27-2023 Thyroid Stimulating Hormone (TSH) 3.70 uIU/mL 0.358-3.74 [facility] Whole blood hemoglobin A1c/t otal hemoglobin ratio (mass fraction)Ordered By: Lynn Zurita on 06-27-2023 HbA1c (Bld) [Mass fraction] 6.5 % 3.8-5.6 [facility] Comment on above: Normal < 5.7 % Predi abetic 5.7 - 6.4 % Diabetic >or= 6.5 % Please note range changes. No Panel InformationOrdered By: Lynn Zurita on 06-26-2023 Thyroid Stimulating Hormone (TSH) 3.87 uIU/mL 0.358-3.74 [facility] Whole blood hemoglobin A1c/t otal hemoglobin ratio (mass fraction)Ordered By: Lynn Zurita on 06-26-2023 HbA1c (Bld) [Mass fraction] 6.6 % 3.8-5.6 [facility] Comment on above: Normal < 5.7 % Predi abetic 5.7 - 6.4 % Diabetic >or= 6.5 % Please note range changes. Absolute lymphocyte countOrd ered By: Lynn Zurita on 06-19-2023 Lymphocytes Auto (Unsp spec) [#/Vol] 1.02 10*3/uL 0.83-4.51 [facility] Basophil percentageOrdered B y: Lynn Zurita on 06-19-2023 Basophil percentage 0 SEEN /hpf 0-5 [facility] Basophils/100 WBC (Bld) 0.3 % 0-1 [facility] Bilirubin [Mass/Vol] 0.50 mg/dL 0.20-1.00 [facility] Comment on above: For patients on eltr ombopag therapy, use of [employer] [place] TBIL is not recommended. Chloride [Moles/Vol] 107 mmol/L 98-107 [facility] Eosinophils/100 WBC (Bld) 1.8 % 0-5 [facility] Glucose [Mass/Vol] 246 mg/dL 74-106 [facility] Comment on above: Glucose result great er than or equal to 200 mg/dLsuggests DIABETES MELLITUS per A.D.A. criteria. Neutrophils (Bld) [#/Vol] 4.5 10*3/uL 2.0-7.7 [facility] Neutrophils/100 WBC (Bld) 75.2 % 47-70 [facility] Potassium [Moles/Vol] 4.0 mmol/L 3.5-5.1 [facility] Protein [Mass/Vol] 6.5 g/dL 6.4-8.2 [facility] Sodium [Moles/Vol] 138 mmol/L 136-145 [facility] WBC (Bld) [#/Vol] 6.0 10*3/uL 4.4-11.0 [facility] Bilirubin Test strip Ql (U)O rdered By: Lynn Zurita on 06-19-2023 Bilirubin Ql (U) Negative Negative [facility] Blood erythrocytes count (nu mber/volume)Ordered By: Lynn Zurita on 06-19-2023 RBC (Bld) [#/Vol] 4.34 10*6/uL 4.6-6.2 [facility] Blood hemoglobin measurement (mass/volume)Ordered By: Lynn Zurita on 06-19-2023 Hemoglobin (Bld) [Mass/Vol] 13.8 g/dL 13.0-16.5 [facility] Blood lymphocytes/100 leukoc ytesOrdered By: Lynn Zurita on 06-19-2023 Lymphocytes/100 WBC (Bld) 17.0 % 19-41 [facility] Blood monocytes/100 leukocyt esOrdered By: Lynn Zurita on 06-19-2023 Monocytes/100 WBC (Bld) 5.2 % 0-10 [facility] Blood platelet mean volumeOr dered By: Lynn Zurita on 06-19-2023 Platelet mean volume (Bld) [Entitic vol] 11.1 fL 6.2-12.0 [facility] Culture, urineOrdered By: Radames Zurita on 06-19-2023 Bacteria identified Cx Nom (U) Culture exhibits no growth. [facility] Determination of erythrocyte mean corpuscular volume (MCV)Ordered By: Lynn Zurita on 06-19-2023 MCV (RBC) [Entitic vol] 95.4 fL 80-94 [facility] Hematocrit Auto (Bld) [Volum e fraction]Ordered By: Lynn Zurita on 06-19-2023 Hematocrit (Bld) [Volume fraction] 41.4 % 40-54 [facility] Ketones Test strip Ql (U)Ord ered By: Lynn Zurita on 06-19-2023 Ketones Ql (U) Negative Negative [facility] - Chemistry and C hemistry - challengeOrdered By: Lynn Zurita on 06-19-2023 ALP [Catalytic activity/Vol] 81 U/L 45-117 [facility] ALT [Catalytic activity/Vol] 74 U/L 16-61 [facility] CO2 [Moles/Vol] 22.0 mmol/L 21.0-32.0 [facility] Globulin (S) [Mass/Vol] 3.2 g/dL 2.2-4.2 [facility] Urea nitrogen/Creatinine [Mass ratio] 20.3 mg/mg 10-20 [facility] - Hematology and Cell countsOrdered By: Lynn Zurita on 06-19-2023 Erythrocyte distribution width (RBC) [Entitic vol] 46.4 fL 35.1-43.9 [facility] Erythrocyte distribution width (RBC) [Ratio] 13.2 % 11.6-14.6 [facility] Immature granulocytes/100 WBC (Bld) 0.500 % 0.0-0.9 [facility] Comment on above: IG% - Immature Granu locytes (promyelocytes, myelocytes and metamyelocytes) > 1% indicates that a LEFT SHIFT is Present. MCH (RBC) [Entitic mass] 31.8 pg 27.0-32.0 [facility] Nucleated RBC/100 WBC (Bld) [Ratio] 0 % 0-5 [facility] MCHC Auto (RBC) [Mass/Vol]Or dered By: Lynn Zurita on 06-19-2023 MCHC (RBC) [Mass/Vol] 33.3 g/dL 32-36 [facility] Mucus LM Ql (Urine sed)Order ed By: Lynn Zurita on 06-19-2023 Mucus Ql (Urine sed) 0 SEEN /hpf [facility] Nitrite Test strip Ql (U)Ord ered By: Lynn Zurita on 06-19-2023 Nitrite Ql (U) Negative Negative [facility] No Panel InformationOrdered By: Lynn Zurita on 06-19-2023 Estimated GFR (MDRD) Amer 56 mL/min >60 [facility] Comment on above: GFR Calc Estimated GFR (MDRD) Non-Af Amer 47 mL/min >60 [facility] Comment on above: Non- GFR Calc Platelets bldOrdered By: Nano Zurita on 06-19-2023 Platelets (Bld) [#/Vol] 168 10*3/uL 150-450 [facility] Protein Test strip Ql (U)Ord ered By: Lynn Zurita on 06-19-2023 Protein Ql (U) 15 mg/dl Negative [facility] Serum or plasma albumin federico urement (mass/volume)Ordered By: Lynn Zurita on 06-19-2023 Albumin [Mass/Vol] 3.3 g/dL 3.2-5.0 [facility] Serum or plasma albumin/glob ulin mass ratioOrdered By: Lynn Zurita on 06-19-2023 Albumin/Globulin [Mass ratio] 1.0 {ratio} 0.9-2.4 [facility] Serum or plasma calcium federico urement (mass/volume)Ordered By: Lynn Zurita on 06-19-2023 Calcium [Mass/Vol] 8.7 mg/dL 8.5-10.1 [facility] Serum or plasma creatinine m easurement (mass/volume)Ordered By: Lynn Zurita on 06-19-2023 Creatinine [Mass/Vol] 1.58 mg/dL 0.70-1.30 [facility] Comment on above: The validity of the calculated GFR & GFRAA in patients over 70 years has not been determined. Clinical correlation is essential. Serum or plasma urea nitroge n measurement (mass/volume)Ordered By: Lynn Zurita on 06-19-2023 Urea nitrogen [Mass/Vol] 32 mg/dL 7-18 [facility] Squamous epithelial cells de tection in urine sediment by light microscopyOrdered By: Lynn Zurita on 06-19-2023 Epithelial cells.squamous LM Ql (Urine sed) 0 SEEN /hpf 0-5 [facility] Thin prep Papanicolaou smear with manual screeningOrdered By: Lynn Zurita on 06-19-2023 Thin prep Papanicolaou smear with manual screening 38 U/L 15-37 [facility] Thin prep Papanicolaou smear with manual screening 9 5-15 [facility] Urine blood detectionOrdered By: Lynn Zurita on 06-19-2023 RBC Ql (U) Negative Negative [facility] RBC Ql (U) 0 SEEN /hpf 0-5 [facility] Urine clarityOrdered By: Nano Zurita on 06-19-2023 Clarity (U) Clear Clear [facility] Urine color determinationOrd ered By: Lynn Zurita on 06-19-2023 Color (U) Yellow Yellow [facility] Urine glucose detectionOrder ed By: Lynn Zurita on 06-19-2023 Glucose Ql (U) Normal mg/dl Normal [facility] Urine leukocyte esterase det ection by dipstickOrdered By: Lynn Zurita on 06-19-2023 Leukocyte esterase Test strip Ql (U) Negative Negative [facility] Urine pHOrdered By: Lynn Almanzar udhasmukh on 06-19-2023 pH (U) 5.0 [pH] 5.0 - 8.0 [facility] Urine sediment bacteria coun t by microscopy (number/high power field)Ordered By: Lynn Zurita on 06-19-2023 Bacteria LM.HPF (Urine sed) [#/Area] 0 /[HPF] None Seen [facility] Urine specific gravity measu rementOrdered By: Lynn Zurita on 06-19-2023 Specific gravity (U) [Rel density] 1.020 1.002-1.030 [facility] Urobilinogen Auto test strip Ql (U)Ordered By: Lynn Zurita on 06-19-2023 Urobilinogen Ql (U) Normal mg/dl Normal [facility] Absolute lymphocyte countOrd ered By: Lynn Zurita on 06-15-2023 Lymphocytes Auto (Unsp spec) [#/Vol] 1.77 10*3/uL 0.83-4.51 [facility] Basophil percentageOrdered B y: Lynn Zurita on 06-15-2023 Basophils/100 WBC (Bld) 0.5 % 0-1 [facility] Eosinophils/100 WBC (Bld) 1.5 % 0-5 [facility] Neutrophils (Bld) [#/Vol] 5.3 10*3/uL 2.0-7.7 [facility] Neutrophils/100 WBC (Bld) 66.8 % 47-70 [facility] WBC (Bld) [#/Vol] 8.0 10*3/uL 4.4-11.0 [facility] Blood erythrocytes count (nu mber/volume)Ordered By: Lynn Zurita on 06-15-2023 RBC (Bld) [#/Vol] 5.00 10*6/uL 4.6-6.2 [facility] Blood hemoglobin measurement (mass/volume)Ordered By: Lynn Zurita on 06-15-2023 Hemoglobin (Bld) [Mass/Vol] 15.7 g/dL 13.0-16.5 [facility] Blood lymphocytes/100 leukoc ytesOrdered By: Lynnluke Zurita on 06-15-2023 Lymphocytes/100 WBC (Bld) 22.2 % 19-41 [facility] Blood monocytes/100 leukocyt esOrdered By: Lynnluke Zurita on 06-15-2023 Monocytes/100 WBC (Bld) 8.0 % 0-10 [facility] Blood platelet mean volumeOr dered By: Lynnluke Zurita on 06-15-2023 Platelet mean volume (Bld) [Entitic vol] 10.9 fL 6.2-12.0 [facility] Determination of erythrocyte mean corpuscular volume (MCV)Ordered By: Lynnluke Zurita on 06-15-2023 MCV (RBC) [Entitic vol] 94.4 fL 80-94 [facility] Hematocrit Auto (Bld) [Volum e fraction]Ordered By: Lynn Zurita on 06-15-2023 Hematocrit (Bld) [Volume fraction] 47.2 % 40-54 [facility] - Hematology and Cell countsOrdered By: Lynnluke Zurita on 06-15-2023 Erythrocyte distribution width (RBC) [Entitic vol] 44.4 fL 35.1-43.9 [facility] Erythrocyte distribution width (RBC) [Ratio] 13.0 % 11.6-14.6 [facility] Immature granulocytes/100 WBC (Bld) 1.000 % 0.0-0.9 [facility] Comment on above: IG% - Immature Granu locytes (promyelocytes, myelocytes and metamyelocytes) > 1% indicates that a LEFT SHIFT is Present. MCH (RBC) [Entitic mass] 31.4 pg 27.0-32.0 [facility] Nucleated RBC/100 WBC (Bld) [Ratio] 0 % 0-5 [facility] MCHC Auto (RBC) [Mass/Vol]Or dered By: Lynn Zurita on 06-15-2023 MCHC (RBC) [Mass/Vol] 33.3 g/dL 32-36 [facility] Platelets bldOrdered By: Nano Zurita on 06-15-2023 Platelets (Bld) [#/Vol] 184 10*3/uL 150-450 [facility] Absolute lymphocyte countOrd ered By: Lynn Zurita on 05-18-2023 Lymphocytes Auto (Unsp spec) [#/Vol] 1.90 10*3/uL 0.83-4.51 [facility] Basophil percentageOrdered B y: Lynn Zurita on 05-18-2023 Basophils/100 WBC (Bld) 0.7 % 0-1 [facility] Eosinophils/100 WBC (Bld) 2.5 % 0-5 [facility] Neutrophils (Bld) [#/Vol] 4.4 10*3/uL 2.0-7.7 [facility] Neutrophils/100 WBC (Bld) 60.4 % 47-70 [facility] WBC (Bld) [#/Vol] 7.2 10*3/uL 4.4-11.0 [facility] Blood erythrocytes count (nu mber/volume)Ordered By: Lynn Zurita on 05-18-2023 RBC (Bld) [#/Vol] 4.66 10*6/uL 4.6-6.2 [facility] Blood hemoglobin measurement (mass/volume)Ordered By: Lynn Zurita on 05-18-2023 Hemoglobin (Bld) [Mass/Vol] 14.8 g/dL 13.0-16.5 [facility] Blood lymphocytes/100 leukoc ytesOrdered By: Lynn Zurita on 05-18-2023 Lymphocytes/100 WBC (Bld) 26.3 % 19-41 [facility] Blood monocytes/100 leukocyt esOrdered By: Lynn Zurita on 05-18-2023 Monocytes/100 WBC (Bld) 8.9 % 0-10 [facility] Blood platelet mean volumeOr dered By: Lynn Zurita on 05-18-2023 Platelet mean volume (Bld) [Entitic vol] 10.8 fL 6.2-12.0 [facility] Determination of erythrocyte mean corpuscular volume (MCV)Ordered By: Lynn Zurita on 05-18-2023 MCV (RBC) [Entitic vol] 95.7 fL 80-94 [facility] Hematocrit Auto (Bld) [Volum e fraction]Ordered By: Lynn Zurita on 05-18-2023 Hematocrit (Bld) [Volume fraction] 44.6 % 40-54 [facility] - Hematology and Cell countsOrdered By: Lynn Zurita on 05-18-2023 Erythrocyte distribution width (RBC) [Entitic vol] 46.1 fL 35.1-43.9 [facility] Erythrocyte distribution width (RBC) [Ratio] 13.2 % 11.6-14.6 [facility] Immature granulocytes/100 WBC (Bld) 1.200 % 0.0-0.9 [facility] Comment on above: IG% - Immature Granu locytes (promyelocytes, myelocytes and metamyelocytes) > 1% indicates that a LEFT SHIFT is Present. MCH (RBC) [Entitic mass] 31.8 pg 27.0-32.0 [facility] Nucleated RBC/100 WBC (Bld) [Ratio] 0 % 0-5 [facility] MCHC Auto (RBC) [Mass/Vol]Or dered By: Lynn Zurita on 05-18-2023 MCHC (RBC) [Mass/Vol] 33.2 g/dL 32-36 [facility] Platelets bldOrdered By: Nano Zurita on 05-18-2023 Platelets (Bld) [#/Vol] 165 10*3/uL 150-450 [facility] Absolute lymphocyte countOrd ered By: Lynn Zurita on 04-20-2023 Lymphocytes Auto (Unsp spec) [#/Vol] 1.75 10*3/uL 0.83-4.51 [facility] Basophil percentageOrdered B y: Lynn Zurita on 04-20-2023 Basophils/100 WBC (Bld) 0.4 % 0-1 [facility] Eosinophils/100 WBC (Bld) 3.4 % 0-5 [facility] Neutrophils (Bld) [#/Vol] 4.1 10*3/uL 2.0-7.7 [facility] Neutrophils/100 WBC (Bld) 60.7 % 47-70 [facility] WBC (Bld) [#/Vol] 6.8 10*3/uL 4.4-11.0 [facility] Blood erythrocytes count (nu mber/volume)Ordered By: Lynn Zurita on 04-20-2023 RBC (Bld) [#/Vol] 4.58 10*6/uL 4.6-6.2 [facility] Blood hemoglobin measurement (mass/volume)Ordered By: Lynn Zurita on 04-20-2023 Hemoglobin (Bld) [Mass/Vol] 14.9 g/dL 13.0-16.5 [facility] Blood lymphocytes/100 leukoc ytesOrdered By: Lynn Zurita on 04-20-2023 Lymphocytes/100 WBC (Bld) 25.9 % 19-41 [facility] Blood monocytes/100 leukocyt esOrdered By: Lynn Zurita on 04-20-2023 Monocytes/100 WBC (Bld) 8.7 % 0-10 [facility] Blood platelet mean volumeOr dered By: Lynn Zurita on 04-20-2023 Platelet mean volume (Bld) [Entitic vol] 10.8 fL 6.2-12.0 [facility] Determination of erythrocyte mean corpuscular volume (MCV)Ordered By: Lynn Zurita on 04-20-2023 MCV (RBC) [Entitic vol] 94.8 fL 80-94 [facility] Hematocrit Auto (Bld) [Volum e fraction]Ordered By: Lynn Zurita on 04-20-2023 Hematocrit (Bld) [Volume fraction] 43.4 % 40-54 [facility] - Hematology and Cell countsOrdered By: Lynn Zurita on 04-20-2023 Erythrocyte distribution width (RBC) [Entitic vol] 45.0 fL 35.1-43.9 [facility] Erythrocyte distribution width (RBC) [Ratio] 13.0 % 11.6-14.6 [facility] Immature granulocytes/100 WBC (Bld) 0.900 % 0.0-0.9 [facility] Comment on above: IG% - Immature Granu locytes (promyelocytes, myelocytes and metamyelocytes) > 1% indicates that a LEFT SHIFT is Present. MCH (RBC) [Entitic mass] 32.5 pg 27.0-32.0 [facility] Nucleated RBC/100 WBC (Bld) [Ratio] 0 % 0-5 [facility] MCHC Auto (RBC) [Mass/Vol]Or dered By: Lynn Zurita on 04-20-2023 MCHC (RBC) [Mass/Vol] 34.3 g/dL 32-36 [facility] Platelets bldOrdered By: Nano Zurita on 04-20-2023 Platelets (Bld) [#/Vol] 174 10*3/uL 150-450 [facility] Absolute lymphocyte countOrd ered By: Dr. Zurita on 03-23-2023 Lymphocytes Auto (Unsp spec) [#/Vol] 1.85 10*3/uL 0.83-4.51 [facility] Basophil percentageOrdered B y: Dr. Zurita on 03-23-2023 Basophils/100 WBC (Bld) 0.7 % 0-1 [facility] Eosinophils/100 WBC (Bld) 2.6 % 0-5 [facility] Neutrophils (Bld) [#/Vol] 4.2 10*3/uL 2.0-7.7 [facility] Neutrophils/100 WBC (Bld) 60.1 % 47-70 [facility] WBC (Bld) [#/Vol] 7.0 10*3/uL 4.4-11.0 [facility] Blood erythrocytes count (nu mber/volume)Ordered By: Dr. Zurita on 03-23-2023 RBC (Bld) [#/Vol] 4.42 10*6/uL 4.6-6.2 [facility] Blood hemoglobin measurement (mass/volume)Ordered By: Dr. Zurita on 03-23-2023 Hemoglobin (Bld) [Mass/Vol] 14.2 g/dL 13.0-16.5 [facility] Blood lymphocytes/100 leukoc ytesOrdered By: Dr. Zurita on 03-23-2023 Lymphocytes/100 WBC (Bld) 26.4 % 19-41 [facility] Blood monocytes/100 leukocyt esOrdered By: Dr. Zurita on 03-23-2023 Monocytes/100 WBC (Bld) 9.1 % 0-10 [facility] Blood platelet mean volumeOr dered By: Dr. Zurita on 03-23-2023 Platelet mean volume (Bld) [Entitic vol] 10.7 fL 6.2-12.0 [facility] Determination of erythrocyte mean corpuscular volume (MCV)Ordered By: Dr. Zurita on 03-23-2023 MCV (RBC) [Entitic vol] 95.2 fL 80-94 [facility] Hematocrit Auto (Bld) [Volum e fraction]Ordered By: Dr. Zurita on 03-23-2023 Hematocrit (Bld) [Volume fraction] 42.1 % 40-54 [facility] - Hematology and Cell countsOrdered By: Dr. Zurita on 03-23-2023 Erythrocyte distribution width (RBC) [Entitic vol] 44.1 fL 35.1-43.9 [facility] Erythrocyte distribution width (RBC) [Ratio] 12.8 % 11.6-14.6 [facility] Immature granulocytes/100 WBC (Bld) 1.100 % 0.0-0.9 [facility] Comment on above: IG% - Immature Granu locytes (promyelocytes, myelocytes and metamyelocytes) > 1% indicates that a LEFT SHIFT is Present. MCH (RBC) [Entitic mass] 32.1 pg 27.0-32.0 [facility] Nucleated RBC/100 WBC (Bld) [Ratio] 0 % 0-5 [facility] MCHC Auto (RBC) [Mass/Vol]Or dered By: Dr. Zurita on 03-23-2023 MCHC (RBC) [Mass/Vol] 33.7 g/dL 32-36 [facility] Platelets bldOrdered By: Dr. Zurita on 03-23-2023 Platelets (Bld) [#/Vol] 180 10*3/uL 150-450 [facility] Absolute lymphocyte countOrd ered By: Dr. Zurita on 02-23-2023 Lymphocytes Auto (Unsp spec) [#/Vol] 1.86 10*3/uL 0.83-4.51 [facility] Basophil percentageOrdered B y: Dr. Zurita on 02-23-2023 Basophils/100 WBC (Bld) 0.7 % 0-1 [facility] Eosinophils/100 WBC (Bld) 3.2 % 0-5 [facility] Neutrophils (Bld) [#/Vol] 4.5 10*3/uL 2.0-7.7 [facility] Neutrophils/100 WBC (Bld) 61.7 % 47-70 [facility] WBC (Bld) [#/Vol] 7.3 10*3/uL 4.4-11.0 [facility] Blood erythrocytes count (nu mber/volume)Ordered By: Dr. Zurita on 02-23-2023 RBC (Bld) [#/Vol] 4.62 10*6/uL 4.6-6.2 [facility] Blood hemoglobin measurement (mass/volume)Ordered By: Dr. Zurita on 02-23-2023 Hemoglobin (Bld) [Mass/Vol] 14.6 g/dL 13.0-16.5 [facility] Blood lymphocytes/100 leukoc ytesOrdered By: Dr. Zurita on 02-23-2023 Lymphocytes/100 WBC (Bld) 25.6 % 19-41 [facility] Blood monocytes/100 leukocyt esOrdered By: Dr. Zurita on 02-23-2023 Monocytes/100 WBC (Bld) 7.7 % 0-10 [facility] Blood platelet mean volumeOr dered By: Dr. Zurita on 02-23-2023 Platelet mean volume (Bld) [Entitic vol] 10.6 fL 6.2-12.0 [facility] Determination of erythrocyte mean corpuscular volume (MCV)Ordered By: Dr. Zurita on 02-23-2023 MCV (RBC) [Entitic vol] 97.8 fL 80-94 [facility] Hematocrit Auto (Bld) [Volum e fraction]Ordered By: Dr. Zurita on 02-23-2023 Hematocrit (Bld) [Volume fraction] 45.2 % 40-54 [facility] - Hematology and Cell countsOrdered By: Dr. Zurita on 02-23-2023 Erythrocyte distribution width (RBC) [Entitic vol] 45.8 fL 35.1-43.9 [facility] Erythrocyte distribution width (RBC) [Ratio] 12.9 % 11.6-14.6 [facility] Immature granulocytes/100 WBC (Bld) 1.100 % 0.0-0.9 [facility] Comment on above: IG% - Immature Granu locytes (promyelocytes, myelocytes and metamyelocytes) > 1% indicates that a LEFT SHIFT is Present. MCH (RBC) [Entitic mass] 31.6 pg 27.0-32.0 [facility] Nucleated RBC/100 WBC (Bld) [Ratio] 0 % 0-5 [facility] MCHC Auto (RBC) [Mass/Vol]Or dered By: Dr. Zurita on 02-23-2023 MCHC (RBC) [Mass/Vol] 32.3 g/dL 32-36 [facility] Platelets bldOrdered By: Dr. Zurita on 02-23-2023 Platelets (Bld) [#/Vol] 186 10*3/uL 150-450 [facility] Whole blood hemoglobin A1c/t otal hemoglobin ratio (mass fraction)Ordered By: Dr. Zurita on 02-23-2023 HbA1c (Bld) [Mass fraction] 6.1 % 3.8-5.6 [facility] Comment on above: Normal < 5.7 % Predi abetic 5.7 - 6.4 % Diabetic >or= 6.5 % Please note range changes. Absolute lymphocyte countOrd ered By: Dr. Zurita on 01-26-2023 Lymphocytes Auto (Unsp spec) [#/Vol] 1.27 10*3/uL 0.83-4.51 [facility] Basophil percentageOrdered B y: Dr. Zurita on 01-26-2023 Basophils/100 WBC (Bld) 0.4 % 0-1 [facility] Eosinophils/100 WBC (Bld) 2.1 % 0-5 [facility] Neutrophils (Bld) [#/Vol] 5.0 10*3/uL 2.0-7.7 [facility] Neutrophils/100 WBC (Bld) 70.6 % 47-70 [facility] WBC (Bld) [#/Vol] 7.0 10*3/uL 4.4-11.0 [facility] Blood erythrocytes count (nu mber/volume)Ordered By: Dr. Zurita on 01-26-2023 RBC (Bld) [#/Vol] 4.30 10*6/uL 4.6-6.2 [facility] Blood hemoglobin measurement (mass/volume)Ordered By: Dr. Zurita on 01-26-2023 Hemoglobin (Bld) [Mass/Vol] 13.7 g/dL 13.0-16.5 [facility] Blood lymphocytes/100 leukoc ytesOrdered By: Dr. Zurita on 01-26-2023 Lymphocytes/100 WBC (Bld) 18.1 % 19-41 [facility] Blood monocytes/100 leukocyt esOrdered By: Dr. Zurita on 01-26-2023 Monocytes/100 WBC (Bld) 7.8 % 0-10 [facility] Blood platelet mean volumeOr dered By: Dr. Zurita on 01-26-2023 Platelet mean volume (Bld) [Entitic vol] 10.5 fL 6.2-12.0 [facility] Determination of erythrocyte mean corpuscular volume (MCV)Ordered By: Dr. Zurita on 01-26-2023 MCV (RBC) [Entitic vol] 95.3 fL 80-94 [facility] Hematocrit Auto (Bld) [Volum e fraction]Ordered By: Dr. Zurita on 01-26-2023 Hematocrit (Bld) [Volume fraction] 41.0 % 40-54 [facility] - Hematology and Cell countsOrdered By: Dr. Zurita on 01-26-2023 Erythrocyte distribution width (RBC) [Entitic vol] 47.1 fL 35.1-43.9 [facility] Erythrocyte distribution width (RBC) [Ratio] 13.6 % 11.6-14.6 [facility] Immature granulocytes/100 WBC (Bld) 1.000 % 0.0-0.9 [facility] Comment on above: IG% - Immature Granu locytes (promyelocytes, myelocytes and metamyelocytes) > 1% indicates that a LEFT SHIFT is Present. MCH (RBC) [Entitic mass] 31.9 pg 27.0-32.0 [facility] Nucleated RBC/100 WBC (Bld) [Ratio] 0 % 0-5 [facility] MCHC Auto (RBC) [Mass/Vol]Or dered By: Dr. Zurita on 01-26-2023 MCHC (RBC) [Mass/Vol] 33.4 g/dL 32-36 [facility] Platelets bldOrdered By: Dr. Zurita on 01-26-2023 Platelets (Bld) [#/Vol] 173 10*3/uL 150-450 [facility] Absolute lymphocyte countOrd ered By: Dr. Zurita on 12-29-2022 Lymphocytes Auto (Unsp spec) [#/Vol] 2.30 10*3/uL 0.83-4.51 [facility] Basophil percentageOrdered B y: Dr. Zurita on 12-29-2022 Basophils/100 WBC (Bld) 0.8 % 0-1 [facility] Eosinophils/100 WBC (Bld) 2.3 % 0-5 [facility] Neutrophils (Bld) [#/Vol] 4.6 10*3/uL 2.0-7.7 [facility] Neutrophils/100 WBC (Bld) 59.0 % 47-70 [facility] WBC (Bld) [#/Vol] 7.9 10*3/uL 4.4-11.0 [facility] Blood erythrocytes count (nu mber/volume)Ordered By: Dr. Zurita on 12-29-2022 RBC (Bld) [#/Vol] 4.55 10*6/uL 4.6-6.2 [facility] Blood hemoglobin measurement (mass/volume)Ordered By: Dr. Zurita on 12-29-2022 Hemoglobin (Bld) [Mass/Vol] 14.4 g/dL 13.0-16.5 [facility] Blood lymphocytes/100 leukoc ytesOrdered By: Dr. Zurita on 12-29-2022 Lymphocytes/100 WBC (Bld) 29.3 % 19-41 [facility] Blood monocytes/100 leukocyt esOrdered By: Dr. Zurita on 12-29-2022 Monocytes/100 WBC (Bld) 7.6 % 0-10 [facility] Blood platelet mean volumeOr dered By: Dr. Zurita on 12-29-2022 Platelet mean volume (Bld) [Entitic vol] 10.7 fL 6.2-12.0 [facility] Determination of erythrocyte mean corpuscular volume (MCV)Ordered By: Dr. Zurita on 12-29-2022 MCV (RBC) [Entitic vol] 97.8 fL 80-94 [facility] Hematocrit Auto (Bld) [Volum e fraction]Ordered By: Dr. Zurita on 12-29-2022 Hematocrit (Bld) [Volume fraction] 44.5 % 40-54 [facility] - Hematology and Cell countsOrdered By: Dr. Zurita on 12-29-2022 Erythrocyte distribution width (RBC) [Entitic vol] 48.3 fL 35.1-43.9 [facility] Erythrocyte distribution width (RBC) [Ratio] 13.6 % 11.6-14.6 [facility] Immature granulocytes/100 WBC (Bld) 1.000 % 0.0-0.9 [facility] Comment on above: IG% - Immature Granu locytes (promyelocytes, myelocytes and metamyelocytes) > 1% indicates that a LEFT SHIFT is Present. MCH (RBC) [Entitic mass] 31.6 pg 27.0-32.0 [facility] Nucleated RBC/100 WBC (Bld) [Ratio] 0 % 0-5 [facility] MCHC Auto (RBC) [Mass/Vol]Or dered By: Dr. Zurita on 12-29-2022 MCHC (RBC) [Mass/Vol] 32.4 g/dL 32-36 [facility] Platelets bldOrdered By: Dr. Zurita on 12-29-2022 Platelets (Bld) [#/Vol] 205 10*3/uL 150-450 [facility] Absolute lymphocyte countOrd ered By: Dr. Zurita on 12-01-2022 Lymphocytes Auto (Unsp spec) [#/Vol] 1.59 10*3/uL 0.83-4.51 [facility] Basophil percentageOrdered B y: Dr. Zurita on 12-01-2022 Basophils/100 WBC (Bld) 0.4 % 0-1 [facility] Eosinophils/100 WBC (Bld) 1.9 % 0-5 [facility] Neutrophils (Bld) [#/Vol] 5.2 10*3/uL 2.0-7.7 [facility] Neutrophils/100 WBC (Bld) 69.0 % 47-70 [facility] WBC (Bld) [#/Vol] 7.5 10*3/uL 4.4-11.0 [facility] Blood erythrocytes count (nu mber/volume)Ordered By: Dr. Zurita on 12-01-2022 RBC (Bld) [#/Vol] 4.22 10*6/uL 4.6-6.2 [facility] Blood hemoglobin measurement (mass/volume)Ordered By: Dr. Zurita on 12-01-2022 Hemoglobin (Bld) [Mass/Vol] 13.4 g/dL 13.0-16.5 [facility] Blood lymphocytes/100 leukoc ytesOrdered By: Dr. Zurita on 12-01-2022 Lymphocytes/100 WBC (Bld) 21.2 % 19-41 [facility] Blood monocytes/100 leukocyt esOrdered By: Dr. Zurita on 12-01-2022 Monocytes/100 WBC (Bld) 6.4 % 0-10 [facility] Blood platelet adequacy dete ction by light microscopyOrdered By: Dr. Zurita on 12-01-2022 Platelets LM Ql (Bld) SLT DEC ADEQ [facility] Blood platelet mean volumeOr dered By: Dr. Zurita on 12-01-2022 Platelet mean volume (Bld) [Entitic vol] 11.0 fL 6.2-12.0 [facility] Determination of erythrocyte mean corpuscular volume (MCV)Ordered By: Dr. Zurita on 12-01-2022 MCV (RBC) [Entitic vol] 96.4 fL 80-94 [facility] Hematocrit Auto (Bld) [Volum e fraction]Ordered By: Dr. Zurita on 12-01-2022 Hematocrit (Bld) [Volume fraction] 40.7 % 40-54 [facility] - Hematology and Cell countsOrdered By: Dr. Zurita on 12-01-2022 Erythrocyte distribution width (RBC) [Entitic vol] 47.2 fL 35.1-43.9 [facility] Erythrocyte distribution width (RBC) [Ratio] 13.4 % 11.6-14.6 [facility] Immature granulocytes/100 WBC (Bld) 1.100 % 0.0-0.9 [facility] Comment on above: IG% - Immature Granu locytes (promyelocytes, myelocytes and metamyelocytes) > 1% indicates that a LEFT SHIFT is Present. MCH (RBC) [Entitic mass] 31.8 pg 27.0-32.0 [facility] Nucleated RBC/100 WBC (Bld) [Ratio] 0 % 0-5 [facility] MCHC Auto (RBC) [Mass/Vol]Or dered By: Dr. Zurita on 12-01-2022 MCHC (RBC) [Mass/Vol] 32.9 g/dL 32-36 [facility] Platelets bldOrdered By: Dr. Zurita on 12-01-2022 Platelets (Bld) [#/Vol] TNP [facility] Comment on above: Test not performedPl ease note: For this sample, a platelet estimate is provided rather than a platelet count due to platelet clumping. Other parameters associated with this sample are not affected by platelet clumping. If a more accurate platelet count is required, a redraw of the patient will be necessary.Previous reported result: 140 [id number] by: MARYANN on 12/01/22:1013 AMENDED REPORT 12/01/22 1013 PLT previously reported as: 140 L K/mm3 Basophil percentageOrdered B y: Dr. Zurita on 11-24-2022 WBC (Bld) [#/Vol] 8.2 10*3/uL 4.4-11.0 [facility] Blood erythrocytes count (nu mber/volume)Ordered By: Dr. Zuriat on 11-24-2022 RBC (Bld) [#/Vol] 4.44 10*6/uL 4.6-6.2 [facility] Blood hemoglobin measurement (mass/volume)Ordered By: Dr. Zurita on 11-24-2022 Hemoglobin (Bld) [Mass/Vol] 14.0 g/dL 13.0-16.5 [facility] Blood platelet mean volumeOr dered By: Dr. Zurita on 11-24-2022 Platelet mean volume (Bld) [Entitic vol] 10.9 fL 6.2-12.0 [facility] Determination of erythrocyte mean corpuscular volume (MCV)Ordered By: Dr. Zurita on 11-24-2022 MCV (RBC) [Entitic vol] 94.8 fL 80-94 [facility] Hematocrit Auto (Bld) [Volum e fraction]Ordered By: Dr. Zurita on 11-24-2022 Hematocrit (Bld) [Volume fraction] 42.1 % 40-54 [facility] - Hematology and Cell countsOrdered By: Dr. Zurita on 11-24-2022 Erythrocyte distribution width (RBC) [Entitic vol] 45.8 fL 35.1-43.9 [facility] Erythrocyte distribution width (RBC) [Ratio] 13.2 % 11.6-14.6 [facility] MCH (RBC) [Entitic mass] 31.5 pg 27.0-32.0 [facility] MCHC Auto (RBC) [Mass/Vol]Or dered By: Dr. Zurita on 11-24-2022 MCHC (RBC) [Mass/Vol] 33.3 g/dL 32-36 [facility] Platelets bldOrdered By: Dr. Zurita on 11-24-2022 Platelets (Bld) [#/Vol] 190 10*3/uL 150-450 [facility] Absolute lymphocyte countOrd ered By: Dr. Zurita on 11-08-2022 Lymphocytes Auto (Unsp spec) [#/Vol] 1.41 10*3/uL 0.83-4.51 [facility] Basophil percentageOrdered B y: Dr. Zurita on 11-08-2022 Basophils/100 WBC (Bld) 0.4 % 0-1 [facility] Bilirubin [Mass/Vol] 0.30 mg/dL 0.20-1.00 [facility] Comment on above: For patients on eltr ombopag therapy, use of Dimension [place] TBIL is not recommended. Chloride [Moles/Vol] 107 mmol/L 98-107 [facility] Cholesterol [Mass/Vol] 143 mg/dL <200 [facility] Comment on above: <200 mg/dL Desirable 200-240 mg/dL Borderline >240 mg/dL High Risk Eosinophils/100 WBC (Bld) 3.2 % 0-5 [facility] Glucose [Mass/Vol] 108 mg/dL 74-106 [facility] Comment on above: Fasting Glucose resu lt from 100 to 125 mg/dL suggests IMPAIRED HOMEOSTASIS per A.D.A. criteria. Neutrophils (Bld) [#/Vol] 5.2 10*3/uL 2.0-7.7 [facility] Neutrophils/100 WBC (Bld) 68.8 % 47-70 [facility] Potassium [Moles/Vol] 4.0 mmol/L 3.5-5.1 [facility] Protein [Mass/Vol] 6.4 g/dL 6.4-8.2 [facility] Sodium [Moles/Vol] 140 mmol/L 136-145 [facility] Triglyceride [Mass/Vol] 293 mg/dL <199 [facility] Comment on above: The drugs N-Acetylcy steine and Metamizole may falsely depress this assay.Serum Triglycerides Reference Interval Normal <150 mg/dL Borderline high 150 - 199 mg/dL High 200 - 499 mg/dL Very High > or = 500 mg/dL WBC (Bld) [#/Vol] 7.6 10*3/uL 4.4-11.0 [facility] Blood erythrocytes count (nu mber/volume)Ordered By: Dr. Zurita on 11-08-2022 RBC (Bld) [#/Vol] 4.21 10*6/uL 4.6-6.2 [facility] Blood hemoglobin measurement (mass/volume)Ordered By: Dr. Zurita on 11-08-2022 Hemoglobin (Bld) [Mass/Vol] 13.4 g/dL 13.0-16.5 [facility] Blood lymphocytes/100 leukoc ytesOrdered By: Dr. Zurita on 11-08-2022 Lymphocytes/100 WBC (Bld) 18.7 % 19-41 [facility] Blood monocytes/100 leukocyt esOrdered By: Dr. Zurita on 11-08-2022 Monocytes/100 WBC (Bld) 7.8 % 0-10 [facility] Blood platelet mean volumeOr dered By: Dr. Zurita on 11-08-2022 Platelet mean volume (Bld) [Entitic vol] 10.5 fL 6.2-12.0 [facility] Determination of erythrocyte mean corpuscular volume (MCV)Ordered By: Dr. Zurita on 11-08-2022 MCV (RBC) [Entitic vol] 96.2 fL 80-94 [facility] Hematocrit Auto (Bld) [Volum e fraction]Ordered By: Dr. Zurita on 11-08-2022 Hematocrit (Bld) [Volume fraction] 40.5 % 40-54 [facility] - Chemistry and C hemistry - challengeOrdered By: Dr. Zurita on 11-08-2022 ALP [Catalytic activity/Vol] 73 U/L 45-117 [facility] ALT [Catalytic activity/Vol] 47 U/L 16-61 [facility] CO2 [Moles/Vol] 25.0 mmol/L 21.0-32.0 [facility] Cobalamin (Vitamin B12) [Mass/Vol] 598 pg/mL 211-911 [facility] Globulin (S) [Mass/Vol] 3.2 g/dL 2.2-4.2 [facility] Magnesium [Mass/Vol] 2.3 mg/dL 1.6-2.6 [facility] Urea nitrogen/Creatinine [Mass ratio] 17.9 mg/mg 10-20 [facility] - Hematology and Cell countsOrdered By: Dr. Zurita on 11-08-2022 Erythrocyte distribution width (RBC) [Entitic vol] 46.0 fL 35.1-43.9 [facility] Erythrocyte distribution width (RBC) [Ratio] 13.0 % 11.6-14.6 [facility] Immature granulocytes/100 WBC (Bld) 1.100 % 0.0-0.9 [facility] Comment on above: IG% - Immature Granu locytes (promyelocytes, myelocytes and metamyelocytes) > 1% indicates that a LEFT SHIFT is Present. MCH (RBC) [Entitic mass] 31.8 pg 27.0-32.0 [facility] Nucleated RBC/100 WBC (Bld) [Ratio] 0 % 0-5 [facility] MCHC Auto (RBC) [Mass/Vol]Or dered By: Dr. Zurita on 11-08-2022 MCHC (RBC) [Mass/Vol] 33.1 g/dL 32-36 [facility] No Panel InformationOrdered By: Dr. Zurita on 11-08-2022 Estimated GFR (MDRD) Amer 90 mL/min >60 [facility] Comment on above: GFR Calc Estimated GFR (MDRD) Non-Af Amer 74 mL/min >60 [facility] Comment on above: Non- GFR Calc Thyroid Stimulating Hormone (TSH) 3.45 uIU/mL 0.358-3.74 [facility] Vitamin D 25-Hydroxy 65.9 ng/mL [facility] Comment on above: Vitamin D 25(OH) Sta tus Range Deficiency <20 ng/mL (50nmol/L) Insufficiency 20 - 30 ng/mL (50 - 75 nmol/L) Sufficiency 30 - 100 ng/mL (75 - 250 nmol/L) Toxicity >100 ng/mL (>250 nmol/L) Platelets bldOrdered By: Dr. Zurita on 11-08-2022 Platelets (Bld) [#/Vol] 183 10*3/uL 150-450 [facility] Serum or plasma albumin federico urement (mass/volume)Ordered By: Dr. Zurita on 11-08-2022 Albumin [Mass/Vol] 3.2 g/dL 3.2-5.0 [facility] Serum or plasma albumin/glob ulin mass ratioOrdered By: Dr. Zurita on 11-08-2022 Albumin/Globulin [Mass ratio] 1.0 {ratio} 0.9-2.4 [facility] Serum or plasma calcium federico urement (mass/volume)Ordered By: Dr. Zurita on 11-08-2022 Calcium [Mass/Vol] 8.8 mg/dL 8.5-10.1 [facility] Serum or plasma cholesterol in HDL measurement (mass/volume)Ordered By: Dr. Zurita on 11-08-2022 Cholesterol in HDL [Mass/Vol] 32 mg/dL >40 [facility] Comment on above: The drugs N-Acetylcy steine and Metamizole may falsely depress this assay. Reference Range HDL <40 mg/dL Low HDL Cholesterol HDL >or= 60 mg/dL High HDL Cholesterol Serum or plasma cholesterol in VLDL measurement (mass/volume)Ordered By: Dr. Zurita on 11-08-2022 Cholesterol in VLDL [Mass/Vol] 59 mg/dL 5-40 [facility] Serum or plasma creatinine m easurement (mass/volume)Ordered By: Dr. Zurita on 11-08-2022 Creatinine [Mass/Vol] 1.06 mg/dL 0.70-1.30 [facility] Comment on above: The validity of the calculated GFR & GFRAA in patients over 70 years has not been determined. Clinical correlation is essential. Serum or plasma low density lipoprotein (LDL) cholesterol measurement (mass/volume)Ordered By: Dr. Zurita on 11-08-2022 Cholesterol in LDL [Mass/Vol] 52 mg/dL 0-130 [facility] Serum or plasma urea nitroge n measurement (mass/volume)Ordered By: Dr. Zurita on 11-08-2022 Urea nitrogen [Mass/Vol] 19 mg/dL 7-18 [facility] Serum or plasma uric acid me asurement (mass/volume)Ordered By: Dr. Zurita on 11-08-2022 Urate [Mass/Vol] 6.4 mg/dL 3.5-7.2 [facility] Comment on above: The drugs N-Acetylcy steine and Metamizole may falsely depress this assay. Thin prep Papanicolaou smear with manual screeningOrdered By: Dr. Zurita on 11-08-2022 Thin prep Papanicolaou smear with manual screening 17 U/L 15-37 [facility] Thin prep Papanicolaou smear with manual screening 8 5-15 [facility] Whole blood hemoglobin A1c/t otal hemoglobin ratio (mass fraction)Ordered By: Dr. Zurita on 11-08-2022 HbA1c (Bld) [Mass fraction] 6.1 % 3.8-5.6 [facility] Comment on above: Normal < 5.7 % Predi abetic 5.7 - 6.4 % Diabetic >or= 6.5 % Please note range changes. Absolute lymphocyte countOrd ered By: Dr. Zurita on 10-25-2022 Lymphocytes Auto (Unsp spec) [#/Vol] 2.12 10*3/uL 0.83-4.51 [facility] Basophil percentageOrdered B y: Dr. Zurita on 10-25-2022 Basophils/100 WBC (Bld) 0.4 % 0-1 [facility] Eosinophils/100 WBC (Bld) 3.9 % 0-5 [facility] Neutrophils (Bld) [#/Vol] 7.6 10*3/uL 2.0-7.7 [facility] Neutrophils/100 WBC (Bld) 68.8 % 47-70 [facility] WBC (Bld) [#/Vol] 11.0 10*3/uL 4.4-11.0 [facility] Blood erythrocytes count (nu mber/volume)Ordered By: Dr. Zurita on 10-25-2022 RBC (Bld) [#/Vol] 5.10 10*6/uL 4.6-6.2 [facility] Blood hemoglobin measurement (mass/volume)Ordered By: Dr. Zurita on 10-25-2022 Hemoglobin (Bld) [Mass/Vol] 15.9 g/dL 13.0-16.5 [facility] Blood lymphocytes/100 leukoc ytesOrdered By: Dr. Zurita on 10-25-2022 Lymphocytes/100 WBC (Bld) 19.3 % 19-41 [facility] Blood monocytes/100 leukocyt esOrdered By: Dr. Zurita on 10-25-2022 Monocytes/100 WBC (Bld) 7.0 % 0-10 [facility] Blood platelet mean volumeOr dered By: Dr. Zurita on 10-25-2022 Platelet mean volume (Bld) [Entitic vol] 10.7 fL 6.2-12.0 [facility] Determination of erythrocyte mean corpuscular volume (MCV)Ordered By: Dr. Zurita on 10-25-2022 MCV (RBC) [Entitic vol] 96.1 fL 80-94 [facility] Hematocrit Auto (Bld) [Volum e fraction]Ordered By: Dr. Zurita on 10-25-2022 Hematocrit (Bld) [Volume fraction] 49.0 % 40-54 [facility] - Hematology and Cell countsOrdered By: Dr. Zurita on 10-25-2022 Erythrocyte distribution width (RBC) [Entitic vol] 47.1 fL 35.1-43.9 [facility] Erythrocyte distribution width (RBC) [Ratio] 13.2 % 11.6-14.6 [facility] Immature granulocytes/100 WBC (Bld) 0.600 % 0.0-0.9 [facility] Comment on above: IG% - Immature Granu locytes (promyelocytes, myelocytes and metamyelocytes) > 1% indicates that a LEFT SHIFT is Present. MCH (RBC) [Entitic mass] 31.2 pg 27.0-32.0 [facility] Nucleated RBC/100 WBC (Bld) [Ratio] 0 % 0-5 [facility] MCHC Auto (RBC) [Mass/Vol]Or dered By: Dr. Zurita on 10-25-2022 MCHC (RBC) [Mass/Vol] 32.4 g/dL 32-36 [facility] Platelets bldOrdered By: Dr. Zurita on 10-25-2022 Platelets (Bld) [#/Vol] 10*3/uL 150-450 [facility] CNOVon 02-23-2021 CNOV Office Visit (AGCARDHWW) JOSE FITZGERALD ([id number]) 1955 M Date Time Provider Department 02/23/21 [...] yourself now (more content not included)... Normal [facility] OBSOLETEon 02-16-2021 OBSOLETE Refill (AGCARDPOB) JOSE FITZGERALD ([id number]) 1955 M Date Time Provider Department 02/16/21 KEVIN TALLEY During your visit today, we [...] Status:Closed by KEVIN TALLEY MD on 02/16/21 [facility] OBSOLETEon 01-20-2021 OBSOLETE Refill (CALIPOB) JOSE FITZGERALD ([id number]) 1955 [place] Date Time Provider Department 01/20/21 KEVIN TALLEY [...] Status:Closed by KEVIN TALLEY MD on 01/20/21 [facility] 12-03-2020 TITA Telephone (AGCMONIKAPOKaren ) JOSE FITZGERALD ([id number]) 1955 M Date Time Provider Department 12/03/20 KEVIN TALLEY During your visit today, we recorded the following information about you: Jaz Miller LPN 12/03/2020 3:30 PM Signed Please contact patient and schedule annual appointment. He was las seen 12/19/2019. Thank you! DARIUS Guillory 12/03/2020 3:37 PM Signed I called and s[home with caregiver at intermediate and she stated that she will call back to schedule with Dr. Talley Thanks Dian Alexandre Allergies As of Date: 12/03/2020 Noted Allergy Reaction PENICILLINS 02/24/2016 14 - Other: See Comments Date Reviewed: 12/19/2019 Reviewed by: Kevin M Mayank - Fully Assessed Reason for Visit: Appointment [...] Encounter Status:Closed by JAZ MILLER on 12/03/20 [facility] OBSOLETEon 12-03-2020 OBSOLETE Refill (AGCARDPOB) JOSE FITZGERALD ([id number]) 1955 [place] Date Time Provider Department 12/03/20 KEVIN TALLEY [...] Status:Closed by KEVIN TALLEY MD on 12/03/20 [facility] US Thyroid/Parathyroidon US Thyroid/Parathyroid Patient Name: JOSE DU Ultrasound Exam Date/Time 02/26/2018 13:11:13 EDT Exam US Parathyroid Ordering Physician MD CHAPIS, OAKMAN Accession Number [id number] CPT4 Codes 35168 () Reason For Exam Nontoxic multinodular goiter [...] Transcribed Date and Time: 02/26/2018 4:13 Normal [facility] Vital Signs Date Time Vital Sign Value Performing Clinician Cheryl lake 02-23-2021 11:04-0400 Body height 182.9 cm Kevin Mayank Work Phone: [facility] 02-23-2021 11:04-0400 Body weight 85.73 kg Kevin Mayank Work Phone: [facility] 02-23-2021 11:04-0400 Diastolic blood pressure 80 mm[Hg] Kevin Mayank Work Phone: [facility] 02-23-2021 11:04-0400 Heart rate 80 /min Kevin Mayank Work Phone: [facility] 02-23-2021 11:04-0400 Respiratory rate 18 /min Kevin Mayank Work Phone: [facility] 02-23-2021 11:04-0400 SaO2% (BldA) [Mass fraction] 97 % Kevin Mayank Work Phone: [facility] 02-23-2021 11:04-0400 Systolic blood pressure 112 mm[Hg] Kevin Mayank Work Phone: [facility] Encounters Encounter Date Encounter Type Care Provider Facility Start: 2025 ambulatory Lynn Zurita Facility:[facility] Start: 03-25-2025 End: 03-25-[address] Lynn Zurita MD [facility] Work Phone: Start: 03-25-2025 End: 03-25-[address] [facility] Work Phone: Start: 03-25-2025 End: 03-25-2025 ambulatory Lynn Zurita Facility:[facility] Start: 02-25-2025 End: 02-25-[address] Lynn Zurita MD [facility] Work Phone: Start: 02-25-2025 End: 02-25-[address] [facility] Work Phone: Start: 02-25-[address] [facility] Work Phone: Start: 02-25-2025 End: 02-25-2025 ambulatory Lynn Zurita Facility:[facility] Start: 02-14-2025 ambulatory Lynn Zurita Facility:[facility] Start: 02-14-[address] [facility] Work Phone: Start: 02-06-[address] [facility] Start: 02-06-[address] [facility] Work Phone: Start: 02-05-2025 End: 02-05-[address] Lynn Zurita MD [facility] Work Phone: Start: 02-05-2025 End: 02-05-[address] [facility] Work Phone: Start: 02-05-[address] [facility] Work Phone: Start: 02-05-2025 End: 02-05-2025 ambulatory Lynn KHANNA Facility:[facility] Start: 01-28-2025 End: 01-28-[address] Lynn Zurita MD [facility] Work Phone: Start: 01-28-2025 End: 01-28-[address] [facility] Work Phone: Start: 01-28-2025 End: 01-28-2025 ambulatory Lynn Zurita Facility:[facility] Start: 12-30-2024 ambulatory Lynn Gudla Facility:[facility] Start: 12-30-[address] [facility] Work Phone: Start: 12-02-2024 ambulatory Lynn Gudla Facility:[facility] Start: 12-02-[address] [facility] Work Phone: Start: 11-12-2024 ambulatory Lynn Gudla Facility:[facility] Start: 11-12-[address] [facility] Work Phone: Start: 11-04-2024 ambulatory Lynn Gudla Facility:[facility] Start: 11-04-[address] [facility] Work Phone: Start: 10-14-2024 End: 10-14-2024 ambulatory Lynn Gudla OLS Facility:[facility] Start: 10-07-2024 End: 10-07-2024 ambulatory Lynn Gudla OLS Facility:[facility] Start: 09-09-2024 End: 09-09-2024 ambulatory Lynn Gudla OLS Facility:[facility] Start: 08-12-2024 End: 08-12-2024 ambulatory Lynn Gudla Facility:[facility] Start: 07-22-2024 End: 07-22-2024 ambulatory Lynn Gudla Facility:[facility] Start: 07-15-2024 End: 07-15-2024 ambulatory Lynn Gudla Facility:[facility] Start: 06-17-2024 End: 06-17-2024 ambulatory Lynn Gudla Facility:[facility] Start: 05-26-2024 ambulatory Lynn Gudla OLS Facili ty:[facility] Start: 05-17-2024 End: 05-17-2024 ambulatory Lynn Gudla Facility:[facility] Start: 04-19-2024 End: 04-19-2024 ambulatory Lynn Gudla OLS Facility:[facility] Start: 02-23-2024 Registered Referred [facility] Work Phone: Start: 01-25-2024 End: 01-25-2024 ambulatory [facility] Work Phone: Start: 01-25-2024 End: 01-25-2024 Departed Referred [facility] Work Phone: Start: 12-28-2023 End: 12-28-2023 ambulatory [facility] Work Phone: Start: 12-28-2023 End: 12-28-2023 Departed [facility] Work Phone: Start: 12-28-2023 Registered Referred [facility] Work Phone: Start: 12-01-2023 End: 12-01-2023 ambulatory [facility] Work Phone: Start: 12-01-2023 End: 12-01-2023 Departed [facility] Work Phone: Start: 11-30-2023 End: 11-30-2023 ambulatory [facility] Work Phone: Start: 11-30-2023 End: 11-30-2023 Departed [facility] Work Phone: Start: 11-30-2023 Registered Referred [facility] Work Phone: Start: 11-02-2023 End: 11-02-2023 ambulatory [facility] Work Phone: Start: 11-02-2023 End: 11-02-2023 Departed [facility] Work Phone: Start: 10-05-2023 End: 10-05-2023 ambulatory [facility] Work Phone: Start: 10-05-2023 End: 10-05-2023 Departed [facility] Work Phone: Start: 10-05-2023 Registered [facility]erred [facility] Work Phone: Start: 10-02-2023 End: 10-02-2023 ambulatory [facility] Work Phone: Start: 10-02-2023 End: 10-02-2023 Patient encounter procedure [facility]Nena Pereira, [facility] Work Phone: Start: 09-11-2023 End: 09-11-2023 ambulatory [facility] Work Phone: Start: 09-11-2023 End: 09-11-2023 Departed [facility] Work Phone: Start: 09-07-2023 End: 09-07-2023 ambulatory [facility] Work Phone: Start: 09-07-2023 End: 09-07-2023 Departed [facility] Work Phone: Start: 09-07-2023 Registered [facility]erred [facility] Work Phone: Start: 08-21-2023 End: 08-21-2023 ambulatory [facility] Work Phone: Start: 08-21-2023 End: 08-21-2023 Departed [facility] Work Phone: Start: 08-10-2023 End: 08-10-2023 Departed [facility] Work Phone: Start: 07-13-2023 End: 07-13-2023 ambulatory [facility] Work Phone: Start: 07-13-2023 End: 07-13-2023 Departed [facility] Work Phone: Start: 07-13-2023 Registered [facility] Work Phone: Start: 06-27-2023 End: 06-27-2023 ambulatory [facility] Work Phone: Start: 06-27-2023 End: 06-27-2023 Departed [facility] Work Phone: Start: 06-27-2023 Registered [facility]erred [facility] Work Phone: Start: 06-26-2023 End: 06-26-2023 Departed [facility] Work Phone: Start: 06-26-2023 Registered [facility] Work Phone: Start: 06-19-2023 End: 06-19-2023 ambulatory [facility] Work Phone: Start: 06-19-2023 End: 06-19-2023 Departed [facility] Work Phone: Start: 06-19-2023 Registered [facility] Work Phone: Start: 06-15-2023 End: 06-15-2023 ambulatory [facility] Work Phone: Start: 06-15-2023 End: 06-15-2023 Departed [facility] Work Phone: Start: 06-15-2023 Registered [facility] Work Phone: Start: 05-18-2023 End: 05-18-2023 ambulatory [facility] Work Phone: Start: 05-18-2023 End: 05-18-2023 Departed [facility] Work Phone: Start: 05-18-2023 Registered [facility] Work Phone: Start: 04-20-2023 End: 04-20-2023 ambulatory [facility] Work Phone: Start: 04-20-2023 End: 04-20-2023 Departed [facility] Work Phone: Start: 03-23-2023 End: 03-23-2023 ambulatory [facility] Work Phone: Start: 03-23-2023 End: 03-23-2023 Departed [facility] Start: 02-23-2023 Registered [facility] Start: 01-26-2023 End: 01-26-2023 ambulatory [facility] Work Phone: Start: 01-26-2023 End: 01-26-2023 Departed [facility] Start: 12-29-2022 End: 12-29-2022 Departed [facility] Start: 12-01-2022 End: 12-01-2022 Departed [facility] Start: 12-01-2022 Registered [facility] Start: 11-24-2022 End: 11-24-2022 ambulatory [facility] Work Phone: Start: 11-24-2022 End: 11-24-2022 Departed [facility] Start: 11-24-2022 Registered [facility] Start: 11-08-2022 End: 11-08-2022 Departed [facility] Start: 10-25-2022 End: 10-25-2022 ambulatory [facility] Work Phone: Start: 10-25-2022 End: 10-25-2022 Departed [facility] Start: 01-11-2022 Refill Kevin Talley MD Work Phone: [facility] Comment on above: Refill Request Start: 02-23-2021 End: 02-23-2021 Patient encounter procedure Kevin Talley Work Phone: [facility] Comment on above: Coronary artery dise ase involving guid[place] coronary artery of [place] heart without angina pectoris (Primary Dx); Ischemic cardiomyopathy Start: 12-03-2020 End: 12-03-2020 Telephone encounter Kevin Talley Work Phone: [facility] Comment on above: Appointment Start: 03-14-2018 End: 03-14-2018 Ambulatory KEVIN TALLEY Facility:[facility] Start: 02-26-2018 Ambulatory [facility] Start: 08-07-2017 Ambulatory [facility] Procedures Date Procedure Procedure Detail Performing Clinician Start: 02-04-2025 Urnls dip stick/tabl et reagent auto microscopy Dr. Lynn Zurita MD Start: 02-04-[address] Jamar Zurita MD Start: 10-02-2023 CT of abdomen and pe lvis without contrast Start: 06-19-2023 Urine culture Plan of Treatment Date Care Activity Detail Author Start: 11-06-2021 ADVANCE DIRECTIVE DISCUSSION ADVANCE DIRECTIVE DISCUSSION [facility] Start: 07-07-2021 Influenza vaccination [facility] Start: 12-19-2020 BP CONTROLLED (<130/80) BP CONTROLLE D (<130/80) [facility] Start: 07-07-2020 Influenza vaccination INFLUENZA (#1) [facility] Start: 2020 ADVANCE DIRECTIVE DISCUSSION ADVANCE DIRECTIVE DISCUSSION [facility] Start: 2020 PNEUMOVAX AGE 65 AND OVER WITH 5YR LOOKBACK (#1) PNEUMOVAX AGE 65 AND OVER WITH 5YR LOOKBACK (#1) [facility] Start: 09-01-2018 DIABETES SCREEN DIABETES SCREEN [facility] Start: 2010 PROSTATE CANCER SCRE ENING DISCUSSION PROSTATE CANCER SCREENING DISCUSSION [facility] Start: 2005 Screening for malign ant neoplasm of colon [facility] Start: 2005 SHINGRIX VACCINE (1 of 2) SHINGRIX V ACCINE (1 of 2) [facility] Start: 2000 COLOGUARD (FIT-DNA) COLOGUARD (FIT-D NA) [facility] Start: [address] [facility] Start: 2000 COLORECTAL CANCER SCREENING COLORECTAL CANCER SCREENING [facility] Start: [address] COLONOGRAPHY [facility] Start: 2000 FECAL OCCULT BLOOD FECAL OCCULT BLOO D [facility] Start: 2000 SIGMOIDOSCOPY SIGMOIDOSCOPY [facility] Start: 1990 LIPID SCREEN LIPID SCREEN [facility] Start: 1974 Urine microalbumin profile DTAP,TDAP ,TD (1 - Tdap) 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 Start: 1973 BP CONTROLLED (<130/80) BP CONTROLLE D (<130/80) [facility] Start: 1973 Hepatitis B surface antibody level LDL CHOLESTEROL [facility] Start: 1973 HEPATITIS C SCREENING HEPATITIS C SC REENING [facility] Start: 1973 HIV SCREENING HIV SCREENING [facility] Start: [address] [facility] Start: 1967 Adult depression scr eening assessment DEPRESSION SCREENING [facility] Start: 1960 COVID-19 VACCINE (1) COVID-19 VACCIN E (1) [facility] Start: 1955 ABDOMINAL AORTIC ANE URYSM SCREENING ABDOMINAL AORTIC ANEURYSM SCREENING [facility] Payers Date Payer Category Payer Self-pay 2024 Unknown [id number] 2024 Unknown [id number] 2020 Medicare [id number] 2016 Medicare [id number] Medicare [id number] Private Health Insurance Unknown [id number] 2.16.8 [id number] Unknown [id number] 2.16.8 [id number] Unknown [id number] 2.16.8 [id number] Unknown [id number] 2.16.8 [id number] Unknown [id number] 2.16.8 [id number] Unknown [id number] 2.16.8 [id number] Unknown [id number] 2.16.8 [id number] Unknown [id number] 2.16.8 [id number] Unknown [id number] 2.16.8 [id number] Unknown [id number] 2.16.8 40.1.207897.3.579.2.462 Unknown [id number] 2.16.8 40.1.774636.3.579.2.462 Unknown [id number] 2.16.8 40.1.677573.3.579.2.462 Unknown [id number] 2.16.8 40.1.473717.3.579.2.462 Unknown [id number] 2.16.8 40.1.813944.3.579.2.462 Unknown [id number] 2.16.8 40.1.951666.3.579.2.462 Unknown [id number] 2.16.8 40.1.046431.3.579.2.462 Unknown [id number] 2.16.8 [id number] Unknown [id number] 2.16.8 [id number] Unknown [id number] 2.16.8 [id number] Unknown [id number] 2.16.8 [id number] Social History Date Type Detail Facility Start: 12-19-2019 End: 02-23-2021 Tobacco smoking status NHIS Former smoker [facility] End: 11-06-2010 History of tobacco use Current smoker [facility] Start: 12-19-2019 End: 02-23-2021 Tobacco use and exposure Never used [facility] Start: 12-19-2019 End: 02-23-2021 Alcohol intake Current non-drinker of alcohol (finding) [facility] Start: 1955 Sex Assigned At Not on file [facility] Exposure to SARS-CoV -2 (event) Not sure [facility] Start: 1955 Sex Assigned At Male [facility] Tobacco smoking stat [facility] Unknown if ever smoked [facility] Work Phone: Start: 02-20-2025 End: 02-26-2025 Sex Male (finding) [facility] Note 01-11-2022 Telephone Encounter - Jaz Miller [...] Jaz Miller LPN documented in this encounter [facility] Progress note 02-23-2021 Note Date & Type Note Facility 02-23-2021 Note HNO ID: [id number] Author: Kevin Talley Service: ? 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 He is accompanied by his case management rn. He comes today for a follow-up appointment. He denies chest pain, shortness of breath, orthopnea, cough, edema, palpitations, PND, lightheadedness or syncope. He has been doing well. He climbs 3 flights of stairs at his intermediate at least 3 times a day without [...] 112/80 Pulse 80 Resp 18 Ht 6' 0" (1.83m) Wt 189 lb (85.7kg) SpO2 97% BMI 25.63 kg/(m2). General: Appears well in no acute distress Skin: No clubbing no cyanosis HEENT PERRLA Mucosa: Moist Neck: No JVD no carotid bruit no palpable thyromegaly Heart S1-S2 rate regular rhythm no murmur no rubs or gallops Lungs: Breath sounds equal clear to auscultation bilaterally Abdomen (more content not included)... 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 He is accompanied by his case management rn. He comes today for a follow-up appointment. He denies chest pain, shortness of breath, orthopnea, cough, edema, palpitations, PND, lightheadedness or syncope. He has been doing well. He climbs 3 flights of stairs at his intermediate at least 3 times a day without [...] 112/80 Pulse 80 Resp 18 Ht 6' 0" (1.83m) Wt 189 lb (85.7kg) SpO2 97% [...] Kevin Talley MD documented in this encounter [facility] Instructions 02-23-2021 Patient Instructions Note Date [...] of your heart. documented in this encounter [facility] Nurse Note 02-23-2021 Katiuska Zhou ([place]) - 02/23/2021 11:09 AM EDT Note Date & Type Note Facility 02-23-2021 Nurse Note Patient has no cardiac complaints today. Katiuska Zhou CMA documented in this encounter [facility] Evaluation note Note Date & Type Note Facility Evaluation note Diagnosis Coronary artery disease involving [place] coronary artery of [place] heart without angina pectoris- Primary Ischemic cardiomyopathy Other specified forms of chronic ischemic heart disease documented in this encounter [facility] Evaluation note Note Date & Type Note Facility Evaluation note No assessment information availa ble [facility] Work Phone: Reason for referral (narrative) Note Date & Type Note Facility Reason for referral (narrative) No reason for referral information available [facility] Work Phone: Summary Purpose Family History No Family History Records FoundNo Family History Records FoundNo Family History Records FoundNo Family History Records FoundNo Family History Records Found Advance Directives No Advanced Directives Records FoundNo Advanced Directives Records FoundNo Advanced Directives Records FoundNo Advanced Directives Records FoundNo Advanced Directives Records Found Chief Complaint and Reason for Visit Chief Complaint SKILLED NURSING LAB WOR K SKILLED NURSING LAB WORK Chief Complaint SKILLED NURSING LAB WOR K SKILLED NURSING LAB WORK SKILLED NURSING LABWORK Chief Complaint SKILLED NURSING LAB WOR K SKILLED NURSING LAB WORK SKILLED NURSING LABWORK SKILLED NURSING LABWORK SKILLED NURSING LABWORK SKILLED NURSING LAB WORK Chief Complaint SKILLED NURSING LABWORK SKILLED NURSING LAB WORK SKILLED NURSING LABWORK SKILLED NURSING LABWORK Chief Complaint SKILLED NURSING LABWORK SKILLED NURSING LAB WORK SKILLED NURSING LAB WORK SKILLED NURSING LAB WORK LABWORK SKILLED NURSING LAB WORK SKILLED NURSING LAB WORK SKILLED NURSING LAB WORK Chief Complaint SKILLED NURSING LAB WOR K SKILLED NURSING LAB WORK SKILLED NURSING LAB WORK LABWORK SKILLED NURSING LAB WORK SKILLED NURSING LAB WORK SKILLED NURSING LAB WORK SKILLED NURSING LAB WORK Chief Complaint SKILLED NURSING LAB WOR K SKILLED NURSING LAB WORK LABWORK SKILLED NURSING LAB WORK SKILLED NURSING LAB WORK SKILLED NURSING LAB WORK SKILLED NURSING LAB WORK SKILLED NURSING LABWORK SKILLED NURSING LABWORK Chief Complaint SKILLED NURSING LAB WOR K SKILLED NURSING LAB WORK LABWORK SKILLED NURSING LAB WORK SKILLED NURSING LAB WORK SKILLED NURSING LAB WORK SKILLED NURSING LAB WORK SKILLED NURSING LABWORK SKILLED NURSING LABWORK LABWORK Chief Complaint SKILLED NURSING LAB WOR K LABWORK SKILLED NURSING LAB WORK SKILLED NURSING LAB WORK SKILLED NURSING LAB WORK SKILLED NURSING LAB WORK SKILLED NURSING LABWORK SKILLED NURSING LABWORK SKILLED NURSING LAB WORK LABWORK Chief Complaint SKILLED NURSING LAB WOR K LABWORK SKILLED NURSING LAB WORK SKILLED NURSING LAB WORK SKILLED NURSING LAB WORK SKILLED NURSING LAB WORK SKILLED NURSING LABWORK SKILLED NURSING LABWORK SKILLED NURSING LAB WORK LABWORK ABD PAIN WEIGHT LOSS SKILLED NURSING LABWORK Chief Complaint SKILLED NURSING LAB WOR K SKILLED NURSING LABWORK SKILLED NURSING LABWORK SKILLED NURSING LAB WORK LABWORK ABD PAIN WEIGHT LOSS SKILLED NURSING LABWORK SKILLED NURSING LAB WORK Chief Complaint SKILLED NURSING LABWORK SKILLED NURSING LABWORK SKILLED NURSING LAB WORK LABWORK ABD PAIN WEIGHT LOSS SKILLED NURSING LABWORK SKILLED NURSING LAB WORK SKILLED NURSING LABWORK Chief Complaint SKILLED NURSING LAB WOR K LABWORK ABD PAIN WEIGHT LOSS SKILLED NURSING LABWORK SKILLED NURSING LAB WORK SKILLED NURSING LAB WORK SKILLED NURSING LABWORK Chief Complaint ABD PAIN WEIGHT LOSS SKILLED NURSING LABWORK SKILLED NURSING LAB WORK SKILLED NURSING LAB WORK SKILLED NURSING LABWORK SKILLED NURSING LAB WORK Chief Complaint ABD PAIN WEIGHT LOSS SKILLED NURSING LABWORK SKILLED NURSING LAB WORK SKILLED NURSING LAB WORK SKILLED NURSING LABWORK SKILLED NURSING LAB WORK LABWORK Chief Complaint SKILLED NURSING LAB WOR K SKILLED NURSING LABWORK SKILLED NURSING LAB WORK LABWORK SKILLED NURSING LAB WORK Chief Complaint Admit Date SKILLED NURSING LAB WORK November 04 5:00am SKILLED NURSING LAB WORK November 12, 2024 5:00am LABWORK December 30, 2024 5:00am SKILLED NURSING LAB WORK January 28, 2025 5 :00am Chief Complaint Admit Date SKILLED NURSING LAB WORK November 04 5:00am SKILLED NURSING LAB WORK November 12, 2024 5:00am LABWORK December 30, 2024 5:00am SKILLED NURSING LAB WORK January 28, 2025 5 :00am SKILLED NURSING LAB WORK February 05, 2025 5: 00am Chief Complaint Admit Date LABWORK December 30, 2024 5:00am SKILLED NURSING LAB WORK January 28, 2025 5 :00am SKILLED NURSING LAB WORK February 05, 2025 5: 00am LABWORK February 06, 2025 5:00 am LABWORK February 14, 2025 7:5 8am SKILLED NURSING LAB WORK March 25, 2025 7:1 0am Additional Source Comments (unrecognized sect ion and content) No Status Records FoundNo Status Records FoundNo Status Records FoundNo Status Records FoundNo Status Records Found INFORMATION SOURCE (unrecogn ized section and content) DATE CREATED AUTHOR 04/25/2018 [employer] [facility] DATE CREATED AUTHOR AUTHOR'S ORGANIZ ATION 04/26/2018 [facility] DATE CREATED AUTHOR AUTHOR'S ORGANIZ ATION 04/26/2018 [facility] DATE CREATED AUTHOR AUTHOR'S ORGANIZ ATION 02/26/2021 [facility] DATE CREATED AUTHOR AUTHOR'S ORGANIZ ATION 2025 [facility] Source Comments (unrecognize d section and content) In the event this informatio n is protected by the Federal Confidentiality of Alcohol and Drug Abuse Patient Records regulations: The Federal rules restrict any use of the information to criminally investigate or prosecute any alcohol or drug abuse patient.[facility] the event this information is protected by the Federal Confidentiality of Alcohol and Drug Abuse Patient Records regulations: The Federal rules restrict any use of the information to criminally investigate or prosecute any alcohol or drug abuse patient.[facility] the event this information is protected by the Federal Confidentiality of Alcohol and Drug Abuse Patient Records regulations: The Federal rules restrict any use of the information to criminally investigate or prosecute any alcohol or drug abuse patient.[facility] Reason for Visit (unrecogniz ed section and content) Reason Comments Appointment Reason Comments CARD Follow Up Annual Reason Comments Refill Request Telephone Encounter - Dian Alexandre - 12/03/2020 3:36 PM ESTTelephone Encounter - Jaz Miller - 12/03/2020 3:29 PM EST Miscellaneous Notes (unrecog nized section and content) I called and s[home with caregiver at intermediate and she stated that she will call [...] Inactive Member Role Status Dates Dr. Lynn Zuirta MD Primary Care Provider Active Start: January [...] Pr ovider, Attending Provider, Referring Provider Active Certified Drug Counselor Relationship Specialty Start Date End Date Soo Montesinos [address] [place] [id number] PCP - General Family Practice 02/23/21 Team [...] February 25, 2025 End: February 25, 2025 Team Status: Inactive Member Role Status Dates Dr. Lynn Zurita MD Primary Care Provider Active Start: March 25, 2025 End: March 25, 2025 Dr. Lynn KHANNA MD Attending Provider Active Start: March 25, 2025 End: March 25, 2025 Goals (unrecognized section and content) [...] BE BASED ON THE PRIMARY CLINICAL RECORDS. [facility] [employer] [facility]. provides no warranty or guarantee of the accuracy or completeness of information in this document.
[2025-04-23 07:50] LABS: Absolute Lymphocyte Count 1.56 X10^3/uL (0.83-4.51); Absolute Neutrophil Count 4.9 X10^3/uL (2.0-7.7); Basophil# 0.03 X10^3/uL; Basophil% 0.4 % (0-1); Eosinophil# 0.16 X10^3/uL; Eosinophils% 2.2 % (0-5); Hematocrit 38.5 % (40-54); Hemoglobin 13.2 g/dL (13.0-16.5); Lymphocyte # 1.56 X10^3/ul (0.83-4.51); Lymphocyte % 21.3 % (19-41); Mean Corp Hgb Conc 34.3 g/dL (32-36); Mean Corpuscular Volume 93.4 fL (80-94); Mean Platelet Vol. 10.9 fl (6.2-12.0); Monocyte# 0.54 X10^3/uL; Monocyte% 7.4 % (0-10); NRBC Flagged by Analyzer 0 % (0-5); Neutrophil # 4.92 X10^3/uL (2.7-7.7); Neutrophil % 67.3 % (47-70); Platelet Count 166 K/mm3 (150-450); RBC Distribution Width CV 13.2 % (11.6-14.6); RBC Distribution Width SD 45.3 fl (35.1-43.9); Red Blood Count 4.12 M/mm3 (4.6-6.2); White Blood Count 7.3 K/mm3 (4.4-11.0)
== END ==
LOC: OLS.SWAL 04:00
PROVIDERS: PCP Internal Medicine; Referring Provider Internal Medicine; Visit Provider Internal Medicine
DX: Z79.899 Other long term (current) drug therapy (principal)
CPT/HCPCS: 36415; 85025

== ENCOUNTER → 2025-05-21 | Outpatient (REF) | payer MEDICARE, MEDICAID, SELFPAY ==
[2025-05-21 07:18] LABS: Hematocrit 38.3 % (40-54); Hemoglobin 13.1 g/dL (13.0-16.5); Immature Granulocytes Count 0.080 X10^3/uL (0.0-0.0); Mean Corp Hgb Conc 34.2 g/dL (32-36); Mean Corpuscular Volume 90.5 fL (80-94); Mean Platelet Vol. 9.9 fl (6.2-12.0); NRBC Flagged by Analyzer 0 % (0-5); POSITIVE COUNT YES; Platelet Count 184 K/mm3 (150-450); RBC Distribution Width CV 14.6 % (11.6-14.6); RBC Distribution Width SD 47.8 fl (35.1-43.9); Red Blood Count 4.23 M/mm3 (4.6-6.2); White Blood Count 8.2 K/mm3 (4.4-11.0)
[2025-05-21 07:35] LABS: Differential Comment SCANNED; Differential Indicated SCAN CRITERIA MET
== END ==
LOC: OLS.SWAL 05:00
PROVIDERS: PCP Internal Medicine; Visit Provider Internal Medicine
DX: Z79.899 Other long term (current) drug therapy (principal)
CPT/HCPCS: 36415; 85025